=== PATIENT | female | born 1950 | race Caucasian/White ===

== ENCOUNTER 2023-03-08 10:30 | Outpatient (OUT) | payer MEDICARE, OTHER, SELFPAY ==
--- NOTE | 2023-03-08 10:57 | XR_ITS ---
The [address] [address] Patient Name: FAHEEM MUÑOZ MRN: [id number] date: 1950 Sex: F Assigned Patient Location: [facility] Current Patient Location: [facility] Accession/Order Number: [id number] Exam Date: 03/08/2023 10:45 Report Date: 03/08/2023 13:13 At the request of: JESSICA MONGE Procedure: XR hip RT 2V w/ pelvis Exam: Radiographs: XR hip RT 2V w/ pelvis, XR lumbar spine 6V w bending Reason for exam: Right Hip Pain M25.551 Comparison: Plain films dated 05/03/2022 XR/XR hip RT 2V w/ pelvis IMPRESSION: For numbering purposes there are 5 lumbar type vertebral bodies with partial lumbarization of the S1 vertebral body. No radiographically evident lumbar spine fractures. 3-4 mm anterior motion of L3 on L4. Flexion/extension views. 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 Grade 1 anterolisthesis of L4 on L5 without instability on flexion/extension views. Lumbar spine degenerative changes with mild L4-5 disc space narrowing. Remainder of the lumbar spine radiographs is unremarkable. Mild right hip degenerative change. Pubic symphysis degenerative change. Right hip is otherwise unremarkable. Electronically authenticated by: FEDE GAMA Date: 03/08/2023 13:13
--- NOTE | 2023-03-08 10:57 | XR_ITS ---
The [address] [address] Patient Name: FAHEEM MUÑOZ MRN: [id number] date: 1950 Sex: F Assigned Patient Location: [facility] Current Patient Location: [facility] Accession/Order Number: [id number] Exam Date: 03/08/2023 10:45 Report Date: 03/08/2023 13:13 At the request of: JESSICA MONGE Procedure: XR lumbar spine 6V w bending Exam: Radiographs: XR hip RT 2V w/ pelvis, XR lumbar spine 6V w bending Reason for exam: Right Hip Pain M25.551 Comparison: Plain films dated 05/03/2022 XR/XR lumbar spine 6V w bending IMPRESSION: For numbering purposes there are 5 lumbar type vertebral bodies with partial lumbarization of the S1 vertebral body. No radiographically evident lumbar spine fractures. 3-4 mm anterior motion of L3 on L4. Flexion/extension views. 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 Grade 1 anterolisthesis of L4 on L5 without instability on flexion/extension views. Lumbar spine degenerative changes with mild L4-5 disc space narrowing. Remainder of the lumbar spine radiographs is unremarkable. Mild right hip degenerative change. Pubic symphysis degenerative change. Right hip is otherwise unremarkable. Electronically authenticated by: FEDE GAMA Date: 03/08/2023 13:13
== END 2023-03-08 10:31 | disposition home or self-care (01) ==
LOC: RAD 10:34
PROVIDERS: PCP Internal Medicine; Visit Provider Internal Medicine
DX: S39.012A Strain of muscle, fascia and tendon of lower back, initial encounter (principal); M25.551 Pain in right hip
CPT/HCPCS: 72114; 73502

== ENCOUNTER 2023-05-17 07:25 | Outpatient (RCR) | payer MEDICARE, OTHER, SELFPAY ==
[2023-05-17 11:35] VITALS: BP 141/80; PULSE 65; RESP 18; TEMP 36.8; O2SAT 98
[2023-05-17 11:52] LABS: Anion Gap 10.7; BUN Creatinine Ratio 27.6; Carbon Dioxide 32.6 mmol/L (21.0-32.0); Chloride 106 mmol/L (98-107); Estimated GFR (African America >60 (>=60); Estimated GFR (Non-African Ame >60 (>=60); Glucose 100 mg/dL (74-106); Potassium 3.3 mmol/L (3.5-5.1); Sodium 146 mmol/L (136-145)
[2023-05-17 11:57] VITALS: BMI 35.9
[2023-05-17] MEDS: ZOLEDRONIC ACID/MANNITOL-WATER 5 MG/100 ML BOTTLE 400 MG IV (12:03)
--- NOTE | 2023-05-17 12:08 | PC.NURSE ---
Patient is here for [facility], she had her bloodwork completed this morning. Education was provided she is tolerating infusion well.
== END 2023-05-20 12:00 | disposition home or self-care (01) ==
LOC: LAB 07:25
PROVIDERS: PCP Internal Medicine; Visit Provider Internal Medicine
DX: M81.0 Age-related osteoporosis without current pathological fracture (principal)
CPT/HCPCS: 36415; 80048; 82306; 96365; J3489

== ENCOUNTER 2023-06-12 21:47 | Outpatient (REF) | payer MEDICARE, OTHER, SELFPAY ==
--- OUTSIDE RECORDS SUMMARY | 2023-06-12 21:51 | XMS_ITS | CCD ---
Author Name Unknown Address [address] [place] [address] Organization [facility] [place] Care Team Providers Care Splicer Apprentice Name Role Phone PHYSICIAN, DEFAULT Unavailable Unavailable PHYSICIAN, DEFAULT Unavailable Unavailable PHYSICIAN, DEFAULT Unavailable Unavailable PHYSICIAN, DEFAULT Unavailable Unavailable HARJIT OLIVIA Attending Unavailable DOMINIC, MCKINLEY Dos Santos Primary Care Unavailable MCKINLEY ALFARO Primary Care Unavailable Arabella Arechiga Unavailable DOMINIC, DR LOPEZ Primary Care Unavailable BALL, DR LOPEZ Admitting Unavailable BALL, DR LOPEZ Attending Unavailable BALL, DR LOPEZ Consulting Unavailable NAQVI, NICANOR Consulting Unavailable BALL, DR LOPEZ Primary Care Unavailable ALEX ., DR SHARPE Admitting Unavailable ALEX ., DR SHARPE Attending Unavailable ALEX ., DR SHARPE Consulting Unavailable BALL, DR LOPEZ Primary Care Unavailable BALL, DR LOPEZ Admitting Unavailable BALL, DR LOPEZ Attending Unavailable BALL, DR LOPEZ Consulting Unavailable ALEX ., DR SHARPE Consulting Unavailable ZIEBER, DR DENNY Vasquez Consulting Unavailable BALL, DR LOPEZ Primary Care Unavailable REQUEST, DR JOHNSON LISTED Admitting Unavaila ble BALL, DR LOPEZ Consulting Unavailable REQUEST, DR JOHNSON LISTED Attending Unavaila ble REQUEST, NONE LISTED Consulting Unavaila ble BALL, DR LOPEZ Admitting Unavailable BALL, DR LOPEZ Attending Unavailable BALL, DR LOPEZ Consulting Unavailable BALL, DR LOPEZ Primary Care Unavailable ZIEBER, DR DENNY Vasquez Consulting Unavailable BALL, DR LOPEZ Admitting Unavailable BALL, DR LOPEZ Attending Unavailable BALL, DR LOPEZ Consulting Unavailable BALL, DR LOPEZ Primary Care Unavailable Mckinley Alfaro Unavailable DO Arnoldo Nixon Primary Care Provider [phone] MD Niurka Oliveira Attending Provider Arnoldo Nixon Primary Care Unavailable Niurka Oliveira Attending UnavailNiurka Nichols Admitting Unavailwilmer e Keara Bullard Unavailable Mckinley Alfaro Unavailable Dinary, Dr. Lopes Attending Unavailable Dinary, Dr. Lopes Referring Unavailable Dominic, Dr. Mckinley Nair Primary Care Unavai lable Dinary, Dr. Lopes Admitting Unavailable Ball DO, Mckinley Nair Primary Care Provider U filippoailYSABEL Hough Attending Unavailable APLING, JOHN Mina Referring Unavailable TATTERSALL, RACHELLE Attending Unavailable APLING, JOHN B Referring Unavailable TATTERSALL, RACHELLE Attending Unavailable APLING, JOHN B Referring Unavailable TATTERSALL, RACHELLE Attending Unavailable APLING, JOHN B Referring Unavailable KELBLEY, IVONNE Attending Unavailable APLING, JOHN B Referring Unavailable KELBLEY, IVONNE Attending Unavailable APLING, JOHN B Referring Unavailable KELBLEY, IVONNE Attending Unavailable APLING, JOHN B Referring Unavailable KELBLEY, IVONNE Attending Unavailable APLING, JOHN B Referring Unavailable ALEXDELL Reinoso Attending Unavailable LYRIC RODRIGUEZ Attending Unavailable APLING, JOHN B Referring Unavailable NIURKA, YSABEL Attending Unavailable APLING, JOHN B Referring Unavailable NIURKA, YSABEL Attending Unavailable APLING, JOHN B Referring Unavailable SHERRIE, JIL Nagy Attending Unavailable APLING, JOHN B Referring Unavailable KELBLEY, IVONNE Attending Unavailable APLING, JOHN B Referring Unavailable APLING, JOHN B Attending Unavailable KELBLEY, IVONNE Attending Unavailable APLING, JOHN B Referring Unavailable KELBLEY, IVONNE Attending Unavailable APLING, JOHN B Referring Unavailable BLACKSAL HAN Attending Unavailable APLING, JOHN B Referring Unavailable SHERRIE, JIL Nagy Attending Unavailable TATTERSALL, RACHELLE Attending Unavailable APLING, JOHN B Referring Unavailable Allergies Allergy Classification Reported Allergen(s) Allergy Type Date of Onset Reaction(s) Facility (6 sources) Penicillin G Drug Allergy anaphylaxis [facility] Other (1 source) Penicillin Drug Allergy 01-23-20 15 [facility] Repository (2 sources) Adhesive Tape; Translations: [adhesive tape] Propensity to adverse reactions 02-24-20 17 Redness of Skin [facility] (3 sources) Penicillins; Translations: [Penicillins] Allergy to substance 02-24-20 17 Swelling of Lip/Tongue/Thr oat [facility] (5 sources) Adhesive Tape Drug allergy 04-19-20 16 Unknown [facility] Other (5 sources) Nitrofurantoin Drug Allergy Comment:Macrob id [facility] Other (5 sources) Sulfamethoxazole / Trimethoprim Drug Allergy Unknown [facility] Other (5 sources) tiZANidine Comfort Pac *MUSCULOSKELETAL THERAPY AG Propensity to adverse reactions Comment:Could not sleep/rest. [facility] Other (5 sources) Substance with penicillin structure and antibacterial mechanism of action (substance) Drug allergy 04-19-20 16 Unknown [facility] Other Medications Current Medications Medication Drug Class(es) Dates Sig (Normalized) Sig (Original) acetaminophen 325 mg / HYDROcodone bitartrate 5 mg oral tablet (8 sources) Opioid Agonist Start: 05-03-2023 take 1 tablet by mouth once at bedtime as needed HYDROcodone-Aceta minophen 5-325 MG 1 tablet as needed Orally q HS for 30 days Apr, Active Start: 01-04-2023 take 1 tablet by romulo th every six hours as needed for pain HYDROcodone-Acetaminophen 5-325 MG 1 tab let as needed Orally every 6 hrs as needed for pain for 7 days Feb, Active atenolol 100 mg oral tablet (20 sources) beta-Adrenergic Natacha Start: 04-08-2018 take 100 mg by mouth once daily Atenolol Active 100 MG PO Daily April 08, 2018 1:00am Start: 02-23-2017 End: 04-08-2018 take 100 mg by mouth once daily Atenolol Discontinued 100 MG PO Daily February 23, 2017 12:00am April 08, 2018 8:29am take 1 tablet by romulo th every twenty-four hours Atenolol 50 MG 1 tablet Orally Once a day Not-Taking/PRN biotin 1 mg oral tablet (6 sources) Start: 04-08-2018 take 1 mg by mouth once daily Biotin Active 1 MG PO Daily April 08, 2018 1:00am Start: 02-23-2017 End: 08-24-2017 take 3 tablets by mouth once daily Biotin Discontinued 3 TAB PO Daily February 23, 2017 12:00am August 24, 2017 7:39am take 1 tablet by romulo th every twenty-four hours Biotin Maximum Strength 44672 MCG 1 tablet Orally Once a day PRN Active take 1 tablet by romulo th every twenty-four hours Biotin Maximum Strength 65622 MCG 1 tablet Orally Once a day PRN Active Biotin Maximum Strength 54449 MCG (7 sources) take 1 tablet by romulo th once daily as needed Biotin Maximum Strength 49408 MCG 1 tablet Orally Once a day PRN Active take 1 tablet by mouth once gayla y Biotin Maximum Strength 62883 MCG 1 tablet Orally Once a day Active Calcium (1 source) Phosphate Binder, Calcium Start: 09-28-2022 take 500 mg by mouth once daily Calcium Active 500 MG PO Daily September 28, 2022 12:00am calcium carbonate 750 mg chewable tablet (2 sources) Start: 09-28-2022 take 1 tablet by mouth twice daily Calcium Carbonate (Tums) 300 mg (750 mg) Tablet,Chewable Active 300 MG PO Twice daily September 28, 2022 12:00am Start: 08-24-2017 End: 10-21-2018 Calcium Carbonate (Calcium 5 00) 500 mg calcium (1,250 mg) Tablet Discontinued 1000 MG PO Daily August 24, 2017 12:00am October 21, 2018 8:46am cholecalciferol 0.025 mg oral tablet (1 source) Vitamin D Start: 09-28-2022 take 1 tablet by mouth once daily Cholecalciferol (Vitamin D3) (Vitamin D3) 25 mcg (1,000 unit) Tablet Active 25 MCG PO Daily September 28, 2022 12:00am dimenhyDRINATE 50 mg oral tablet (7 sources) take 1 tablet by mouth every six hours Dramamine 50 MG 1 tablet as needed Orally every 6 hrs Active hydroCHLOROthiazide 25 mg oral tablet (3 sources) Thiazide Diuretic Start: 09-28-2022 take 25 mg by mouth once daily Hydrochlorothiazide Active 25 MG PO Daily September 28, 2022 12:00am inulin 2000 mg chewable tablet (1 source) Start: 09-28-2022 take 1 tablet by mouth once daily Inulin (Fiber Gummies) 2 gram Tablet,Chewable Active 1 GM PO Daily September 28, 2022 12:00am meloxicam 15 mg oral tablet (9 sources) Nonsteroidal Anti-inflammator y Drug Start: 02-23-2017 take 15 mg by mouth once daily Meloxicam Active 15 MG PO Daily February 23, 2017 12:00am omeprazole 20 mg delayed release oral capsule (13 sources) Proton Pump Inhibitor Start: 08-24-2017 End: 04-08-2018 take 20 mg by mouth once daily Omeprazole Active 20 MG PO Daily April 08, 2018 1:00am Omeprazole 40 MG TAKE 1 CAPSULE BY MOUTH 30 MINUTES BEFORE MORNING MEAL EVERY DAY FOR 30 DAYS Orally Once a day for 90 days Active potassium chloride 10 meq extended release oral capsule (1 source) Start: 05-17-2023 take 1 capsule by mouth every twenty-four hours Potassium Chloride ER 10 MEQ 1 capsule with food Orally Once a day for 30 days Apr, Active traMADol hydrochloride 50 mg oral tablet (6 sources) Opioid Agonist Start: 10-03-2022 take 1 tablet by mouth every twenty-four hours traMADol HCl 50 MG 1 tablet as needed Orally Once a day for 30 days September, Active Start: 09-28-2022 take 50 mg by mouth once daily Tramadol Active 50 MG PO Daily September 28, 2022 12:00am Start: 07-04-2022 take 1 tablet by romulo th every twenty-four hours traMADol HCl 50 MG 1 tablet as needed Orally Once a day for 30 days Jun, Active triamcinolone acetonide 0.005 mg/mg topical ointment (10 sources) Corticosteroid Start: 03-08-2023 Triamcinolone Acetonide 0.5 % 1 application Externally Twice a day for 30 days Feb, Active Start: 11-01-2022 Kenalog-40 Oct, 40 mg 100 ml zoledronic acid 0.05 mg/ml injection (2 sources) Bisphosphonate Start: 05-03-2023 Reclast 5 MG/1 00ML as directed Intravenous Apr, Active Completed/Discontinued Medications Medication Drug Class(es) Dates Sig (Normalized) Sig (Original) aspirin 81 mg delayed release oral tablet (1 source) Platelet Aggregation Inhibitor, Nonsteroidal Anti-inflammatory Drug Start: 04-02-2018 End: 09-28-2022 take 1 tablet by mouth once daily Aspirin (Aspir-81) 81 mg Tablet,Delayed Release (Dr/Ec) Discontinued 81 MG PO Daily April 02, 2018 1:00am September 28, 2022 7:46am Calcium Carb-Magnesium Ox,Carb (Eliud-Mag) 200 mg calcium- 100 mg Tablet,Chewable (1 source) Start: 02-23-2017 End: 08-24-2017 take 1 tablet by mouth once daily Calcium Carb-Magnesium Ox,Carb (Eliud-Mag) 200 mg calcium- 100 mg Tablet,Chewable Discontinued 1 TAB PO Daily February 23, 2017 12:00am August 24, 2017 7:39am hydroCHLOROthiazide 12.5 mg / olmesartan medoxomil 20 mg oral tablet (1 source) Thiazide Diuretic, Angiotensin 2 Receptor Natacha Start: 04-02-2018 End: 10-21-2018 take 1 tablet by mouth once daily Olmesartan-Hydroc hlorothiazide (Benicar Hct) 20-12.5 mg Tablet Discontinued 1 TAB PO Daily April 02, 2018 1:00am October 21, 2018 8:47am hydroCHLOROthiazide 12.5 mg / valsartan 80 mg oral tablet (2 sources) Thiazide Diuretic, Angiotensin 2 Receptor Natacha Start: 08-24-2017 End: 04-02-2018 take 1 tablet by mouth once daily Valsartan-Hydroch lorothiazide Discontinued 1 TAB PO Daily August 24, 2017 12:00am April 02, 2018 10:59am Start: 02-23-2017 End: 04-20-2017 take 1 tablet by mouth once daily Valsartan-Hydrochlorothiazide Discontinu ed 1 TAB PO Daily February 23, 2017 12:00am April 20, 2017 9:52am hydrocortisone 10 mg/ml / neomycin 3.5 mg/ml / polymyxin b 36876 unt/ml otic solution (11 sources) Aminoglycoside Antibacterial, Polymyxin-class Antibacterial, Corticosteroid Start: 03-09-2022 Xmnezgvt-Bnjeyxcjl-AH 3.5-93665-0 4 drops into affected ear Otic Three times a day for 7 day(s) Feb, Not-Taking/PRN Magnesium (1 source) Start: 04-08-2018 End: 10-21-2018 take 250 mg by mouth once daily Magnesium Discontinued 250 MG PO Daily April 08, 2018 1:00am October 21, 2018 8:46am Meclizine (11 sources) Antiemetic Meclizine HCl IL N Not-Taking/PRN Meclizine HCl IL N Not-Taking Meclizine HCl IL N Active methylPREDNISolone 4 mg oral tablet (18 sources) Corticosteroid Start: 03-09-2022 methylPREDNISolone 4 MG as directed Orally daily for 6 days Oct, Not-Taking/PRN Multivitamin With Minerals (Hair,Skin And Nails) Tablet (1 source) Start: 08-24-2017 End: 10-21-2018 take 1 tablet by mouth once daily Multivitamin With Minerals (Hair,Skin And Nails) Tablet Discontinued 1 TAB PO Daily August 24, 2017 12:00am October 21, 2018 8:46am [place] 8-Rus-Nvi-Fish Oil (Fish Oil) 1,000 mg (120 mg-180 mg) Capsule (1 source) Start: 02-23-2017 End: 08-24-2017 take 1 capsule by mouth once daily [place] 6-Suq-Bbk-Fish Oil (Fish Oil) 1,000 mg (120 mg-180 mg) Capsule Discontinued 1 CAP PO Daily February 23, 2017 12:00am August 24, 2017 7:39am [place] Red (1 source) Start: 04-02-2018 End: 09-28-2022 take 1 tablet by mouth once daily [place] Red Discontinued 1 TAB PO Daily April 02, 2018 1:00am September 28, 2022 7:45am paxlovid (300/100) 20 x 150 mg & 10 x 100mg tablet therapy pack (2 sources) Start: 09-06-2022 take 3 tablets by mouth every twelve hours Paxlovid (300/100) 20 x 150 MG & 10 x 100MG 3 tablets Orally Twice a day for 5 day(s) Aug, Not-Taking/PRN {20 (nirmatrelvir 150 MG Oral Tablet) / 10 (ritonavir 100 MG Oral Tablet) } Pack [Paxlovid 5-Day] (5 sources) Start: 09-06-2022 take 3 tablets by mouth every twelve hours Paxlovid (300/100) 20 x 150 MG & 10 x 100MG 3 tablets Orally Twice a day for 5 day(s) Aug, Not-Taking Problems Active Problems Problem Classification Problem Date Documented Da te Episodic/Chronic Abdominal hernia (4 sources) Hiatal hernia; Translations: [Diaphragmatic hernia without obstruction or gangrene] Episodic Complications of surgical procedures or medical care (1 source) Non-healing surgical wound; Translations: [Other complications of procedures, not elsewhere classified, initial encounter] 08-24-2017 Episodic Esophageal disorders (20 sources) Gastroesophageal reflux disease; Translations: [Gastro-esophageal reflux disease without esophagitis] Chronic Essential hypertension (16 sources) Essential hypertension; Translations: [Essential (primary) hypertension] Onset: 2 Chronic Gastritis and duodenitis (11 sources) Atrophic gastritis; Translations: [Unspecified chronic gastritis without bleeding] Chronic Immunizations and screening for infectious disease (1 source) Encounter for screening for human papillomavirus (HPV); Translations: [ENC SCREENING HUMAN PAPILLOMAVIRUS] Onset: 3 Episodic Neoplasms of unspecified nature or uncertain behavior (1 source) Submucosal tumor of duodenum; Translations: [Neoplasm of unspecified nature of digestive system] Episodic Nutritional deficiencies (1 source) Vitamin D deficiency; Translations: [Vitamin D deficiency, unspecified] Chronic Osteoarthritis (11 sources) Osteoarthritis of joint of right shoulder region; Translations: [Primary osteoarthritis, right shoulder] Chronic Osteoporosis (13 sources) Senile osteoporosis; Translations: [Age-related osteoporosis without current pathological fracture] Onset: 3 Chronic Other and unspecified benign neoplasm (7 sources) Benign neoplasm of stomach; Translations: [Polyp of stomach and duodenum] Episodic Other and unspecified benign neoplasm (2 sources) Polyp of stomach and duodenum; Translations: [Polyp of stomach and duodenum] Onset: 3 Episodic Other and unspecified benign neoplasm (1 source) Mass of digestive structure; Translations: [Polyp of stomach and duodenum] 12-21-2022 Episodic Other connective tissue disease (5 sources) Fibromyalgia; Translations: [Fibromyalgia] Episodic Other ear and sense organ disorders (1 source) Impacted cerumen, right ear Episodic Other gastrointestinal disorders (10 sources) Irritable bowel syndrome characterized by constipation; Translations: [Irritable bowel syndrome with constipation] Chronic Other gastrointestinal disorders (1 source) Irritable bowel syndrome with constipation Chronic Other gastrointestinal disorders (5 sources) Dysphagia; Translations: [Dysphagia, unspecified] 09-28-2022 Episodic Other gastrointestinal disorders (4 sources) Heartburn; Translations: [Heartburn] Episodic Other gastrointestinal disorders (7 sources) Constipation; Translations: [Constipation, unspecified] Episodic Other gastrointestinal disorders (2 sources) Dysphagia, unspecified; Translations: [Dysphagia, unspecified] Onset: 3 09-28-2022 Episodic Other inflammatory condition of skin (1 source) Seborrheic dermatitis, unspecified Episodic Other nervous system disorders (7 sources) Chronic pain; Translations: [Other chronic pain] Chronic Other nervous system disorders (1 source) Other chronic pain Chronic Other non-traumatic joint disorders (1 source) Pain in right shoulder Episodic Other non-traumatic joint disorders (2 sources) Pain in right hip Episodic Other nutritional; endocrine; and metabolic disorders (11 sources) Obese class I; Translations: [Body mass index (BMI) 34.0-34.9, adult] Chronic Other nutritional; endocrine; and metabolic disorders (17 sources) Body mass index 30+ - obesity; Translations: [Obesity, unspecified] Chronic Other nutritional; endocrine; and metabolic disorders (1 source) Obesity, unspecified Chronic Other nutritional; endocrine; and metabolic disorders (7 sources) Severe obesity; Translations: [Morbid (severe) obesity due to excess calories] Chronic Other nutritional; endocrine; and metabolic disorders (2 sources) Morbid (severe) obesity due to excess calories Chronic Other nutritional; endocrine; and metabolic disorders (2 sources) Body mass index (BMI) 35.0-35.9, adult Chronic Other screening for suspected conditions (not mental disorders or infectious disease) (8 sources) Encounter for screening mammogram for malignant neoplasm of breast; Translations: [Encounter for screening for malignant neoplasm of cervix] Onset: 3 Episodic Other upper respiratory disease (4 sources) Sinusitis; Translations: [Allergic rhinitis, unspecified] Chronic Other upper respiratory disease (1 source) Allergic rhinitis, unspecified Chronic Residual codes; unclassified (11 sources) Family history of cancer of colon; Translations: [Family history of malignant neoplasm of digestive organs] Episodic Residual codes; unclassified (1 source) Asymptomatic menopausal state; Translations: [ASYMPTOMATIC MENOPAUSAL STATE] Onset: 3 Episodic Residual codes; unclassified (1 source) Edema of left lower limb; Translations: [Localized edema] 08-24-2017 Episodic Spondylosis; intervertebral disc disorders; other back problems (13 sources) Lumbar spondylosis; Translations: [Spondylosis without myelopathy or radiculopathy, lumbar region] Chronic Sprains and strains (2 sources) Strain of muscle(s) and tendon(s) of the rotator cuff of right shoulder, subsequent encounter; Translations: [Strain of muscle, fascia and tendon of lower back, initial encounter] Episodic Superficial injury; contusion (5 sources) Contusion of right shoulder, initial encounter; Translations: [Contusion of left hip, initial encounter] Onset: 2 Episodic Past or Other Problems Problem Classification Problem Date Documented Da te Episodic/Chronic Anal and rectal conditions (1 source) Disease of anus and rectum, unspecified; Translations: [DISEASE ANUS AND RECTUM UNSPECIFIED] Onset: 04-04-2022 Episodic Esophageal disorders (2 sources) Esophageal disorders Malaise and fatigue (1 source) Other fatigue; Translations: [OTHER FATIGUE] Onset: 04-04-2022 Episodic Other skin disorders (4 sources) Localized swelling, mass and lump, trunk; Translations: [LOCALIZD SWELLING MASS AND LUMP TRUNK] Onset: 09-29-2021 Episodic Results Test Name Value Interpretation Reference Range Facility SURGICAL PATHOLOGY RESULTSon 12-20-2022 Pathology Report Name LIZZY WELSH Pathologist: ANNY CHU MD Date of Procedure: 12/12/2022 Date Received: 12/12/2022 Date Reported 12/20/2022 Submitting Physician: MARIANNE LI MD Location: OR Other External # FINAL DIAGNOSIS A. DUODENAL POLYP, BIOPSY: -- SMALL INTESTINAL MUCOSA DEMONSTRATING DILATED LYMPHATIC VESSELS, NO DYSPLASIA IDENTIFIED. Note: Multiple deeper levels were examined. Electronically Signed Out By ANNY CHU MD/[facility] [place] By the signature on this report, the individual or group listed as making the Final Interpretation/Diagnosi s certifies that they have reviewed this case. Diagnostic interpretation performed at [address] [place] [address] Clinical History: Physician Contact Number: [phone] Ischemic Time (A): 09:35 Fixative (A): Formalin Fixative Time (A): 09:35 Clinical Diagnosis History DUODENAL POLYP Specimens Submitted As: A: DUODENAL POLYP BIOPSY Gross Description: Received in formalin, labeled with the patient's name and hospital number and A, Duodenal polyp biopsy , are two fragments of messer, soft tissue aggregating to 0.9 x 0.2 x 0.2 cm. The specimen is submitted in toto in one cassette. M[facility] valladares/12/13/2022 [facility] Department of Pathology [id number] Endoscopic Ultrasound (Upper )on 12-12-2022 Marianne Li MD - 02/01/2023 Patient Name: Lizzy Welsh Procedure Date: 12/12/2022 9:15 AM Date of : 1950 Admit Type: Outpatient Site: [facility] 1 Ethnicity: Not or Race: White Attending MD: Marianne Li MD, [id number] Procedure: Upper EUS Indications: Duodenal mucosal mass/polyp found on endoscopy, 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 extrinsic compression Patient Profile: This is a 72 year old female. Refer to note in patient chart for documentation of history and physical. Providers: Marianen Li MD (Doctor), Sara Castillo RN (Nurse), Maciel Ferrer, Suppression Crew Leader Referring: Marianne Li MD Medicines: See the Anesthesia note for documentation of the administered medications Complications: No immediate complications. Procedure: Pre-Anesthesia Assessment: - Prior to the procedure, a History and Physical was performed, and patient medications and allergies were reviewed. The patient's tolerance of previous anesthesia was also reviewed. The risks and benefits of the procedure and the sedation options and risks were discussed with the patient. All questions were answered, and informed consent was obtained. Prior Anticoagulants: The patient has taken no anticoagulant or antiplatelet agents. ASA Grade Assessment: III - A patient with severe systemic disease. After reviewing the risks and benefits, the patient was deemed in satisfactory condition to undergo the procedure. After obtaining informed consent, the endoscope was passed under direct vision. Throughout the procedure, the patient's blood pressure, pulse, and oxygen saturations were monitored continuously. The ultrasound scope was introduced through the mouth, and advanced to the second part of duodenum. The Gastroscope was introduced through the mouth, and advanced to the second part of duodenum. The upper EUS was accomplished without difficulty. The patient tolerated the procedure well. Findings: ENDOSCOPIC FINDING: : The examined esophagus was normal. The entire examined stomach was normal. A single 8 mm submucosal nodule with a localized distribution was found in the second portion of the duodenum. This was biopsied with a cold forceps for histology. The exam of the duodenum was otherwise normal. ENDOSONOGRAPHIC FINDING: : An oval intramural (subepithelial) lesion was found in the second portion of the duodenum. The lesion was hypoechoic with ductal structure. Endosonographically, the lesion appeared to originate from within the submucosa (Layer 3). The lesion measured 7 mm (in maximum thickness). The lesion also measured 8 mm in diameter. The outer margins were well defined. Estimated Blood Loss: Estimated blood loss: none. Impression: EGD: - Normal esophagus. - Normal stomach. - Submucosal nodule found in the duodenum. Biopsied. EUS: - An intramural (subepithelial) lesion was found in the second portion of the duodenum. The lesion appeared to originate from within the submucosa (Layer 3). 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 Recommendation: - Await path results. - Advance diet as tolerated. - Return to endoscopist in 3 months depends of biopsy result. 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 All rights reserved. The codes documented in this report are preliminary and upon invoice coder review may be revised to meet current compliance requirements. Attending Participation: I personally performed the entire procedure. MD Marianne Enamorado MD 12/12/2022 9:49:01 AM This report has been signed electronically. Number of Addenda: 0 Note Initiated On: 12/12/2022 9:15 AM Total Procedure Duration Time 0 hours 21 minutes 39 seconds [facility] Work Phone: Radiology Study observation (narrative) [facility] Work Phone: Endoscopic Ultrasound (Upper )Ordered By: Marianne Li on 12-12-2022 [facility] Work Phone: No Panel Informationon 12-12 [facility] DO Work Phone: [phone] [email or web address] [facility] DO Work Phone: [facility] DO Work Phone: Order Reconciliationon 12-12 Order Reconciliation Page 1 Discharge Reconciliation Document Reconciliation Type: Discharge requested on behalf of Marianne Li (Physician) done by Marianne Li) Discharge - Reconciliation: 12-Dec-2022 09:10 by: Marianne Li) Home Medications EnteredHOME MEDICATIONS AT DISCHARGE DateReconciliation Comment/ Additional Information atenolol 100 mg oral tablet 1 tab(s) orally once a day 12-Dec-2022 07:53 atenolol 100 mg oral tablet 1 tab(s) orally once a day 12-Dec-2022 07:53 atenolol 100 mg oral tablet is continued as atenolol 100 mg oral tablet Biotin 5000 mcg oral capsule 12-Dec-2022 07:54 Biotin 5000 mcg oral capsule 12-Dec-2022 07:54 Biotin 5000 mcg oral capsule is continued as Biotin 5000 mcg oral capsule Calcium 600+D oral tablet 1 tab(s) orally 2 times a day 12-Dec-2022 07:54 Calcium 600+D oral tablet 1 tab(s) orally 2 times a day 12-Dec-2022 07:54 Calcium 600+D oral tablet is continued as Calcium 600+D oral tablet hydroCHLOROthiazide 25 mg oral tablet 1 tab(s) orally once a day 12-Dec-2022 07:53 hydroCHLOROthiazide 25 mg oral tablet 1 tab(s) orally once a day 12-Dec-2022 07:53 hydroCHLOROthiazide 25 mg oral tablet is continued as hydroCHLOROthiazide 25 mg oral tablet meloxicam 15 mg oral tablet 1 tab(s) orally once a day 12-Dec-2022 07:53 meloxicam 15 mg oral tablet 1 tab(s) orally once a day 12-Dec-2022 07:53 meloxicam 15 mg oral tablet is continued as meloxicam 15 mg oral tablet Metamucil [facility] Fiber orally once a day gummy 12-Dec-2022 07:55 Metamucil [facility] Fiber orally once a day gummy 12-Dec-2022 07:55 Metamucil [facility] Fiber is continued as Metamucil [facility] Fiber Tums 750 mg daily 12-Dec-2022 07:55 Tums 750 mg daily 12-Dec-2022 07:55 Tums is continued as Tums All Active Home Medications at time of Discharge Reconciliation: 12-Dec-2022 09:10 atenolol 100 mg oral tablet 1 tab(s) orally once a day Biotin 5000 mcg oral capsule Calcium 600+D oral tablet 1 tab(s) orally 2 times a day hydroCHLOROthiazide 25 mg oral tablet 1 tab(s) orally once a day meloxicam 15 mg oral tablet 1 tab(s) orally once a day Metamucil [facility] Fiber orally once a day gummy Tums 750 mg daily Normal [facility] Surgical Pathology Depar tmenton 12-12-2022 [facility] Surgical Pathology Department Name LIZZY WELSH Pathologist: ANNY CHU MD Date of Procedure: 12/12/2022 Date Received: 12/12/2022 Date Reported 12/20/2022 Submitting Physician: MARIANNE LI MD Location: [facility] Other External # FINAL DIAGNOSIS A. DUODENAL POLYP, BIOPSY: -- SMALL INTESTINAL MUCOSA DEMONSTRATING DILATED LYMPHATIC VESSELS, NO DYSPLASIA IDENTIFIED. Note: Multiple deeper levels were examined. Electronically Signed Out By ANNY CHU MD/[facility] [place] By the signature on this report, the individual or group listed as making the Final Interpretation/Diagnosi s certifies that they have reviewed this case. Diagnostic interpretation performed at [facility], [place], operated by [facility] [address] [facility] [address] Clinical History: Physician Contact Number: [phone] Ischemic Time (A): 09:35 Fixative (A): Formalin Fixative Time (A): 09:35 Clinical Diagnosis History DUODENAL POLYP Specimens Submitted As: A: DUODENAL POLYP BIOPSY Gross Description: Received in formalin, labeled with the patient's name and hospital number and A, Duodenal polyp biopsy , are two fragments of messer, soft tissue aggregating to 0.9 x 0.2 x 0.2 cm. The specimen is submitted in toto in one cassette. MRS valladares/12/13/2022 [facility] Department of Pathology [address] [place] [address] [facility] Comment on above: Performed By: #### [facility] #### [facility] Surgical Pathology Department [address] [place] [id number] Upper EUSon 12-12-2022 Upper EUS PATIENTNAME Patient Name: Lizzy Welsh EXAMDATE Procedure Date: 12/12/2022 9:15 AM PATIENTID PATIENTACCOUNTNUM PATIENTDOB Date of : 1950 ADMITTYPE Admit Type: Outpatient PATIENTROOM Site: [facility] 1 ETHNICITY Ethnicity: Not or RACE Race: White PROVDR Attending MD: Marianne Li MD, [id number] ENDOPROCEDURENAME Procedure: Upper EUS INDICATION Indications: Duodenal mucosal mass/polyp found on endoscopy, 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 Refer to note in patient chart for documentation of history and physical. PRIMARYPROVIDER Providers: Marianne Li MD (Doctor), Sara Castillo RN (Nurse), Maciel Ferrer, Suppression Crew Leader EDREFPROVIDER Referring: Marianne Li MD CURRENT_MEDS Medicines: See the Anesthesia note for documentation of the administered medications COMPLIC Complications: No immediate complications. ENDOPROCEDURETEXT Procedure: Pre-Anesthesia Assessment: - Prior to the procedure, a History and Physical was performed, and patient medications and allergies were reviewed. The patient's tolerance of previous anesthesia was also reviewed. The risks and benefits of the procedure and the sedation options and risks were discussed with the patient. All questions were answered, and informed consent was obtained. Prior Anticoagulants: The patient has taken no anticoagulant or antiplatelet agents. ASA Grade Assessment: III - A patient with severe systemic disease. After reviewing the risks and benefits, the patient was deemed in satisfactory condition to undergo the procedure. After obtaining informed consent, the endoscope was passed under direct vision. Throughout the procedure, the patient's blood pressure, pulse, and oxygen saturations were monitored continuously. The ultrasound scope was introduced through the mouth, and advanced to the second part of duodenum. The Gastroscope was introduced through the mouth, and advanced to the second part of duodenum. The upper EUS was accomplished without difficulty. The patient tolerated the procedure well. FINDING Findings: ENDOSCOPIC FINDING: : The examined esophagus was normal. The entire examined stomach was normal. A single 8 mm submucosal nodule with a localized distribution was found in the second portion of the duodenum. This was biopsied with a cold forceps for histology. The exam of the duodenum was otherwise normal. ENDOSONOGRAPHIC FINDING: : An oval intramural (subepithelial) lesion was found in the second portion of the duodenum. The lesion was hypoechoic with ductal structure. Endosonographically, the lesion appeared to originate from within the submucosa (Layer 3). The lesion measured 7 mm (in maximum thickness). The lesion also measured 8 mm in diameter. The outer margins were well defined. EBL Estimated Blood Loss: Estimated blood loss: none. IMPRESS Impression: EGD: - Normal esophagus. - Normal stomach. - Submucosal nodule found in the duodenum. Biopsied. EUS: - An intramural (subepithelial) lesion was found in the second portion of the duodenum. The lesion appeared to originate from within the submucosa (Layer 3). 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 ENDORECOMMENDATION Recommendation: - Await path results. - Advance diet as tolerated. - Return to endoscopist in 3 months depends of biopsy result. 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 All rights reserved. The codes documented in this report are preliminary and upon invoice coder review may be revised to meet current compliance requirements. ATTDRPART Attending Participation: I personally performed the entire procedure. SIGNATURENAME MD Marianne Enamorado MD SIGNATUREDATE 12/12/2022 9:49:01 AM SIGNATUREONFILEIND This report has been signed electronically. NUMADDENDA Number of Addenda: 0 INITIATEDON Note Initiated On: 12/12/2022 9:15 AM TOTPROCTIME Total Procedure Duration Time 0 hours 21 minutes [address] [facility] Mayur 09-28-2022 L --- Specimen: [id number] Received: 09/28/22 Status: SALVADOR Enrique Num: [id number] Spec Type: Surgical Subm Dr: Niurka Oliveira MD Tissues: A Duodenum - Biopsy (DUODENUM BX) B Esophagus Biopsy (ESOPHABEAL BX) Procedures: Roxie AGRCIA/Kashif L4/2 Age/ Patient Sex Location Account Attending Physician Lizzy Welsh 72/F [id number] Niurka Oliveira MD SPEC NUM: [id number] RECD: 09/28/22 STATUS: SALVADOR ENRIQUE NUM: [id number] ELVA: 09/28/22- [facility] DR: Niurka Oliveira MD ENTERED: 09/28/[address]: IDA TYPE: Surgical DEPT: S ORDERED: HE/4, Gross/Micro L4/2 ORDERED: HE/4, Gross/Micro L4/2 Pathological Diagnosis A. Small bowel, duodenal biopsy: - Superficial fragment of small intestinal epithelium with focal gastric metaplasia, consistent with peptic duodenitis. - Negative for celiac disease. B. Esophagus, esophageal biopsy: - Squamous mucosa, negative for significant histopathologic changes. - Negative for West?s esophagus (H E stain). - Negative for dysplasia. - Negative for eosinophilic esophagitis. Clinical Information West's, difficulty in swallowing, GERD Gross Description Received in formalin labeled with the patient's name, number and duodenal biopsy?? is one fragment of soft messer tissue measuring 0.3 x 0.3 x 0.1 cm. Entirely submitted in one cassette labeled A1. Received in formalin labeled with the patient's name, number and esophageal biopsy?? are two fragments of soft messer tissue measuring 0.2 x 0.3 x 0.1 cm and 0.2x 0.3 x 0.1 cm. Entirely submitted in one cassette labeled C1. Specimen: [id number] Received: 09/28/22 Status: SALVADOR Enrique Num: [id number] Spec Type: Surgical Subm Dr: Niurka Oliveira MD Tissues: A Duodenum - Biopsy (DUODENUM BX) B Esophagus Biopsy (ESOPHABEAL BX) Procedures: HE/4, Gross/Micro L4/2 Patient: BlaiseLizzy Yakov [id number] (Continued) Signed (signature on file) Baylee Newton MD 09/29/22 1009 Normal [facility] ZAK - TSHon 07-19-2022 TSH 1.271 uIU/mL Normal 0.358-3.740 [facility] Comment on above: Performed By: #### D ATTSH #### [facility] [address] [place] [address] Dr. Gertrudis Peres TSH RANGE SEE BELOW Normal [facility] Comment on above: Result Comment: <0.3 4 UIU/ml HYPERTHYROID 0.34-5.60 UIU/ml EUTHYROID >5.60 UIU/ml HYPOTHYROID Performed By: #### D ATTSH #### [facility] [address] [place] [address] Dr. Gertrudis Peres ZAK - VITAMIN Don 07-19-2022 VIT D 25-OH 26.5 ng/mL Normal [facility] [place] [facility] Comment on above: Performed By: #### D ATVITD #### [facility] [id number] Gertrudis Peres VIT D RANGES SEE BELOW Normal [facility] Comment on above: Result Comment: <20 ng/mL Vit D deficient 20 - <30 ng/mL Vit D insufficient 30 - 100 ng/mL Vit D sufficient >100 ng/mL Potential Toxicity Performed By: #### D ATVITD #### [facility] [address] [place], [place] [address] Dr. Gertrudis Peres MG MAMM SCREEN 3D MANDY CADon 06-13-2022 MG MAMM SCREEN 3D MANDY CAD Patient: LIZZY WELSH Exam Date: 06/13/2022 : 1950 Gender:F Ordering : DR MCKINLEY ALFARO D.O. Admission #: [id number] Family : Order #: [id number] CLICK HERE TO VIEW EXAM RADIOLOGY REPORT PROCEDURE: MAMMOGRAM SCREENING 3D BILATERAL CAD COMPARISON: MG MAMM SCREEN MANDY W CAD, 07/03/2019. MG MAMM SCREEN MANDY W CAD, 06/11/2018. DIGITIZED_MAMMO, 07/17/2008. MG MAMM SCREEN 3D MANDY CAD, 06/09/2021. INDICATIONS: Screening mammography Calculator Name NCI Breast Cancer Risk Assessment Tool 5 Year Breast Cancer Risk 2.00% Lifetime Breast Cancer Risk 5.90% Personal Breast Cancer No Personal Ovarian Cancer No Treatments None Family Cancers None LOCATION: [facility] [place] [facility] BREAST COMPOSITION: Scattered areas fibroglandular density. FINDINGS: DIAGNOSTIC CATEGORY 2--BENIGN FINDING: RIGHT BREAST: No significant suspicious finding. Biopsy marker clip within posterior upper inner quadrant. No significant change has occurred. LEFT BREAST: No significant suspicious finding. No significant change has occurred. RECOMMENDATIONS: ROUTINE MAMMOGRAM AND CLINICAL EVALUATION IN 12 MONTHS. PLEASE NOTE: A NORMAL MAMMOGRAM DOES NOT EXCLUDE THE POSSIBILITY OF BREAST CANCER. A CLINICALLY SUSPICIOUS PALPABLE LUMP SHOULD BE BIOPSIED. Dictated by: Denny Rose M.D. on 06/14/2022 at 11:16 Approved by: Denny Rose M.D. on 06/14/2022 at 11:22 Normal [facility] XR DEXA BONE DENSITYon 06-13 XR DEXA BONE DENSITY EXAMINATION: XR DEX A BONE DENSITY, 06/13/2022 12:38 PM EST HISTORY: Menopause present COMPARISON: DEXA bone densitometry 04/22/2018 TECHNIQUE: Dual-energy X-ray absorptiometry (DEXA) bone density study performed for the axial skeleton. FINDINGS: FOREARM ANALYSIS: Average bone mineral density is 0.609 g/cm2. T-score (standard deviation relative to young adult mean): -1.5 . +1.1% change since prior study HIP ANALYSIS: Lowest bone mineral density is within the right femoral trochanter, 0.557 g/cm2. T-score (standard deviation relative to young adult mean): -2.6 (femoral neck is -2.2) . -2.3% change since prior study. IMPRESSION: [employer] Organization Classification: Osteoporosis - High Fracture Risk Electronically authenticated by: DENNY ROSE Date: 2022-06-13 14:55 [facility] PAP ACOG PANEL 2: 30 to 65on 06-10-2022 . . Normal [facility] Comment on above: Performed By: #### 4 [id number] #### [facility] [address] [address] [address] Gertrudis Peres Age Gdln ACOG Testing Comment [facility] Comment on above: Result Comment: <21 or >65 or no age provided Performed By: #### 4 [id number] #### [facility] [address] [address] [address] Gertrudis Peres DIAGNOSIS: Comment Normal [facility] Comment on above: Result Comment: NEGA TIVE FOR INTRAEPITHELIAL LESION OR MALIGNANCY. Performed By: #### 4 [id number] #### [facility] [address] [address] [address] Gertrudis Peres Methodology: Comment [facility] Comment on above: Result Comment: This liquid based ThinPrep(R) pap test was screened with the use of an image guided system. Performed By: #### 4 [id number] #### [facility] [address] [address] [address] Gertrudis Peres Note: Comment [facility] Comment on above: Result Comment: The Pap smear is a screening test designed to aid in the detection of premalignant and malignant conditions of the uterine cervix. It is not a diagnostic procedure and should not be used as the sole means of detecting cervical cancer. Both false-positive and false-negative reports do occur. . Performed By: #### 4 [id number] #### [facility] [address] [place], [place] [address] Dr. Gertrudis Peres Performed by: Comment Normal [facility] Comment on above: Result Comment: [employer] [place] (ASCP) Performed By: #### 4 [id number] #### [facility] [address] [address] [address] Gertrudis Peres Specimen adequacy: Comment Normal [facility] Comment on above: Result Comment: Sati sfactory for evaluation. Endocervical and/or squamous metaplastic cells (endocervical component) are present. Performed By: #### 4 [id number] #### [facility] [address] [address] [address] Gertrudis Peres XR HIPS MANDY 5V W PELVISon XR HIPS MANDY 5V W PELVIS EXAM: XR HIPS MANDY 5V W PELVIS, XR SHOULDER RT 2V or > HISTORY: Contusion of left hip region COMPARISON: None. TECHNIQUE: AP view of the pelvis was obtained along with AP and lateral views of the bilateral hips. 3 views of the right shoulder were obtained. FINDINGS: Right shoulder: There is moderate joint space narrowing with marginal spurring at the right acromioclavicular and glenohumeral joints. No evidence of an acute fracture. Pelvis with bilateral hips: There is severe bilateral joint space narrowing with marginal spurring at the hip joints and the sacroiliac joints. Osteitis pubis. There is multifocal enthesopathic changes are seen at the iliac spines and the greater trochanters. Postsurgical changes are seen at the lower lumbar spine. IMPRESSION: Right shoulder: 1. Degenerative changes. 2. No evidence of an acute fracture or subluxation. Pelvis and bilateral hips: 1. 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 2. No evidence of an acute fracture or subluxation. Electronically authenticated by: NICANOR NAQVI Date: 2022-05-03 16:34 Normal [facility] [place] [facility] CBC AUTO DIFFon 03-31-2022 BASO # 0.0 103/ul Normal 0.0-0.1 [facility] [place] [facility] Comment on above: Performed By: #### C BC #### [facility] [address] [address] [address] Gertrudis Peres Basophils/100 WBC (Bld) 0.5 % Normal 0.2-2.0 [facility] [place] [facility] Comment on above: Performed By: #### C BC #### [facility] [address] [address] [address] Gertrudis Peres EO # 0.3 103/ul Normal 0.0-0.7 [facility] Comment on above: Performed By: #### C BC #### [facility] [address] [place] [address] Dr. Gertrudis Peres Eosinophils/100 WBC (Bld) 4.3 % Normal 0.9-7.0 [facility] Comment on above: Performed By: #### C BC #### [facility] [address] [place] [address] Dr. Gertrudis Peres Erythrocyte distribution width (RBC) [Ratio] 13.2 % Normal 11.0-15.0 [facility] Comment on above: Performed By: #### C BC #### [facility] [address] [place] [address] Dr. Gertrudis Peres Hematocrit (Bld) [Volume fraction] 37.9 % Normal 36.0-48.0 [facility] Comment on above: Performed By: #### C BC #### [facility] [address] [place] [address] Dr. Gertrudis Peres Hemoglobin (Bld) [Mass/Vol] 12.7 g/dL Normal 12.0-16.0 [facility] [place] [facility] Comment on above: Performed By: #### C BC #### [facility] [address] [place] [address] Dr. Gertrudis Peres IG # 0.02 10e3/ul Normal 0.00-0.03 [facility] [place] [facility] Comment on above: Performed By: #### C BC #### [facility] [address] [place] [address] Dr. Gertrudis Peres IG % 0.3 % Normal 0.0-0.5 [facility] [place] [facility] Comment on above: Performed By: #### C BC #### [facility] [address] [place] [address] Dr. Gertrudis Peres LYMPH # 1.7 103/ul Normal 1.2-3.8 [facility] [place] [facility] Comment on above: Performed By: #### C BC #### [facility] [address] [place] [address] Dr. Gertrudis Peres Lymphocytes/100 WBC (Bld) 26.4 % Normal 20.5-60.0 [facility] [place] [facility] Comment on above: Performed By: #### C BC #### [facility] [address] [place] [address] Dr. Gertrudis Peres MANUAL DIFF REQ NO Normal [facility] Comment on above: Performed By: #### C BC #### [facility] [address] [place] [address] Dr. Gertrudis Peres MCH (RBC) [Entitic mass] 28.6 pg Normal 26.7-34.0 [facility] Comment on above: Performed By: #### C BC #### [facility] [address] [place] [address] Dr. Gertrudis Peres MCHC (RBC) [Mass/Vol] 33.5 g/dL Normal 29.9-35.2 [facility] Comment on above: Performed By: #### C BC #### [facility] [address] [place] [address] Dr. Gertrudis Peres MCV (RBC) [Entitic vol] 85.4 fL Normal 81.0-99.0 [facility] Comment on above: Performed By: #### C BC #### [facility] [address] [place] [address] Dr. Gertrudis Peres MONO # 0.5 103/ul Normal 0.3-0.8 [facility] Comment on above: Performed By: #### C BC #### [facility] [address] [place] [address] Dr. Gertrudis Peres Monocytes/100 WBC (Bld) 8.1 % Normal 1.7-12.0 [facility] Comment on above: Performed By: #### C BC #### [facility] [address] [place] [address] Dr. Gertrudis Peres NEUT # 3.9 103/ul Normal 1.4-6.5 [facility] Comment on above: Performed By: #### C BC #### [facility] [address] [place] [address] Dr. Gertrudis Peres Neutrophils/100 WBC (Bld) 60.4 % Normal 43.0-75.0 [facility] Comment on above: Performed By: #### C BC #### [facility] [address] [place] [address] Dr. Gertrudis Peres Platelet mean volume (Bld) [Entitic vol] 11.3 fL Normal 9.5-13.5 [facility] Comment on above: Performed By: #### C BC #### [facility] [address] [place] [address] Dr. Gertrudis Peres PLT 215 103/ul Normal 150-450 [facility] Comment on above: Performed By: #### C BC #### [facility] [address] [place] [address] Dr. Gertrudis Peres RBC 4.44 106/ul Normal 4.20-5.40 [facility] Comment on above: Performed By: #### C BC #### [facility] [address] [place] [address] Dr. Gertrudis Peres WBC 6.5 103/ul Normal 4.0-11.0 [facility] Comment on above: Performed By: #### C BC #### [facility] [address] [place] [address] Dr. Gertrudis Peres PROF 14(COMP METB)on 022 Albumin [Mass/Vol] 3.7 g/dL Normal 3.4-5.0 [facility] Comment on above: Performed By: #### C MP #### [facility] [address] [place] [address] Dr. Gertrudis Peres Albumin/Globulin [Mass ratio] 1.1 {ratio} Normal [facility] Comment on above: Performed By: #### C MP #### [facility] [address] [place] [address] Dr. Gertrudis Peres ALP [Catalytic activity/Vol] 112 U/L Normal 46-116 [facility] Comment on above: Performed By: #### C MP #### [facility] [address] [address] [address] Gertrudis Peres ALT [Catalytic activity/Vol] 23 U/L Normal 14-59 [facility] Comment on above: Performed By: #### C MP #### [facility] [address] [place] [address] Dr. Gertrudis Peres Anion gap [Moles/Vol] 7.1 mmol/L Normal [facility] Comment on above: Performed By: #### C MP #### [facility] [address] [place] [address] Dr. Gertrudis Peres AST [Catalytic activity/Vol] 18 U/L Normal 15-37 [facility] Comment on above: Performed By: #### C MP #### [facility] [address] [place] [address] Dr. Gertrudis Peres Bilirubin [Mass/Vol] 0.4 mg/dL Normal 0.2-1.0 [facility] Comment on above: Performed By: #### C MP #### [facility] [address] [place] [address] Dr. Gertrudis Peres Calcium [Mass/Vol] 8.6 mg/dL Normal 8.5-10.1 [facility] Comment on above: Performed By: #### C MP #### [facility] [address] [place] [address] Dr. Gertrudis Peres Chloride [Moles/Vol] 105 mmol/L Normal 98-107 [facility] Comment on above: Performed By: #### C MP #### [facility] [address] [place] [address] Dr. Gertrudis Peres CO2 [Moles/Vol] 34.0 mmol/L Critically high 21.0-32.0 [facility] Comment on above: Performed By: #### C MP #### [facility] [address] [address] [address] Gertrudis Peres Creatinine [Mass/Vol] 0.80 mg/dL Normal 0.55-1.02 [facility] Comment on above: Performed By: #### C MP #### [facility] [address] [address] [address] Gertrudis Peres EGFR-AF FIJIAN >60 Normal >=60 [facility] Comment on above: Performed By: #### C MP #### [facility] [address] [address] [address] Gertrudis Peres EGFR-NON AF FIJIAN >60 Normal >=60 [facility] Comment on above: Performed By: #### C MP #### [facility] [address] [address] [address] Gertrudis Peres Globulin (S) [Mass/Vol] 3.5 g/dL Normal [facility] Comment on above: Performed By: #### C MP #### [facility] [address] [address] [address] Gertrudis Peres Glucose [Mass/Vol] 119 mg/dL Critically high 74-106 [facility] Comment on above: Performed By: #### C MP #### [facility] [address] [address] [address] Gertrudis Peres Potassium [Moles/Vol] 3.1 mmol/L Critically low 3.5-5.1 [facility] Comment on above: Performed By: #### C MP #### [facility] [address] [address] [address] Gertrudis Peres Protein [Mass/Vol] 7.2 g/dL Normal 6.4-8.2 [facility] Comment on above: Performed By: #### C MP #### [facility] [address] [address] [address] Gertrudis Peres Sodium [Moles/Vol] 143 mmol/L Normal 136-145 [facility] Comment on above: Performed By: #### C MP #### [facility] [address] [place], [place] [address] Dr. Gertrudis Peres Urea nitrogen [Mass/Vol] 24.0 mg/dL Critically high 7.0-18.0 [facility] Comment on above: Performed By: #### C MP #### [facility] [address] [place], [place] [address] Dr. Gertrudis Peres Urea nitrogen/Creatinine [Mass ratio] 30.0 mg/mg Normal [facility] Comment on above: Performed By: #### C MP #### [facility] [address] [place], [place] [address] Dr. Gertrudis Peres US SINGLE QUAD UMBILon 09-29 US SINGLE QUAD UMBIL EXAM: US SINGLE LAZARO D UMBIL HISTORY: Anterior abdominal wall mass ; 3 small lumps on mid abdomen for 3 months COMPARISON: None. TECHNIQUE: Ultrasound evaluation of abdominal wall FINDINGS: Within the subcutaneous fat corresponding to patient's palpable lumps is a 1.3 cm subtle, slightly hyperechoic structure without perceivable yarbrough, no significant vascularity. Smaller 5 mm similar-appearing structure is seen. No third structure could be identified. IMPRESSION: 1. 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 Ultrasound-guided tissue sampling could be performed if clinically indicated. Electronically authenticated by: DENNY ROSE Date: 2021-09-29 14:52 Normal [facility] CBC with Diffon 10-04-2018 Abs. Basophil 0.05 k/uL Normal 0.00-0.20 [facility] Comment on above: Performed By: #### C MPX, CDP #### [facility] [address] [place] [address] Arabic Teacher: Peter Conklin MD Abs.Imm.Granulocyte <0.03 Normal 0.00-0.30 [place] Comment on above: Performed By: #### C MPX, CDP #### [facility] [address] [place] [address] Arabic Teacher: Peter Conklin MD Abs.Neutrophil (Seg) 4.64 k/uL Normal 1.50-8.10 [facility] Comment on above: Performed By: #### C MPX, CDP #### [facility] [address] [place], [place] [address] Arabic Teacher: Peter Conklin MD Basophils/100 WBC (Bld) 1 % Normal 0-2 [place] Comment on above: Performed By: #### C MPX, CDP #### [facility] [address] [place], [facility]83 Arabic Teacher: Peter Conklin MD Eosinophils #/vol (Bld) 0.35 10*3/uL Normal 0.00-0.44 [place] Comment on above: Performed By: #### C MPX, CDP #### [address] [place], [facility]83 Arabic Teacher: Peter Conklin MD Eosinophils/100 WBC (Bld) 4 % Normal 1-4 [place] Comment on above: Performed By: #### C MPX, CDP #### [address] [place], [facility]83 Arabic Teacher: Peter Conklin MD Erythrocyte distribution width Ratio (RBC) 13.8 % Normal 11.8-14.4 [place] Comment on above: Performed By: #### C MPX, CDP #### [address] [place], [place] [address] Arabic Teacher: Peter Conklin MD Hematocrit Volume Fraction (Bld) 44.8 % Normal 36.3-47.1 [place] Comment on above: Performed By: #### C MPX, CDP #### [address] [place] [address] Arabic Teacher: Peter Conklin MD Hemoglobin mass conc (Bld) 14.1 g/dL Normal 11.9-15.1 [place] Comment on above: Performed By: #### C MPX, CDP #### [address] [place] [address] Arabic Teacher: Peter Conklin MD Immature granulocytes #/vol (Bld) 0 % Normal 0 [place] Comment on above: Performed By: #### C MPX, CDP #### [facility] [address] [place], [place] [id number] Arabic Teacher: Peter Conklin MD Lymphocytes #/vol (Bld) 2.23 10*3/uL Normal 1.10-3.70 [place] Comment on above: Performed By: #### C MPX, CDP #### [facility] [address] [place], [place] [id number] Arabic Teacher: Peter Conklin MD Lymphocytes/100 WBC (Bld) 27 % Normal 24-43 [place] Comment on above: Performed By: #### C MPX, CDP #### [facility] [address] [place], [place] [id number] Arabic Teacher: Peter Conklin MD MCH Entitic mass (RBC) 27.8 pg Normal 25.2-33.5 [place] Comment on above: Performed By: #### C MPX, CDP #### [address] [place], [place] [id number] Arabic Teacher: Peter Conklin MD MCHC mass conc (RBC) 31.5 g/dL Normal 28.4-34.8 [facility] Comment on above: Performed By: #### C MPX, CDP #### [facility] [address] [place], [place] [id number] Arabic Teacher: Peter Conklin MD MCV Entitic volume (RBC) 88.4 fL Normal 82.6-102.9 [place] Comment on above: Performed By: #### C MPX, CDP #### [facility] [address] [place], [place] [id number] Arabic Teacher: Peter Conklin MD Monocytes #/vol (Bld) 0.84 10*3/uL Normal 0.10-1.20 [place] Comment on above: Performed By: #### C MPX, CDP #### [facility] [address] [place], [place] [id number] Arabic Teacher: Peter Conklin MD Monocytes/100 WBC (Bld) 10 % Normal 3-12 [place] Comment on above: Performed By: #### C MPX, CDP #### [facility] [address] [place], [facility]83 Arabic Teacher: Peter Conklin MD Neutrophil (Seg) 58 % Normal 36-65 [facility] Comment on above: Performed By: #### C MPX, CDP #### [facility] [address] [place], [place] [id number] Arabic Teacher: Peter Conklin MD NRBC Automated 0.0 per 100 WBC Normal 0.0 [place] Comment on above: Performed By: #### C MPX, CDP #### [facility] [address] [place], [place] [id number] Arabic Teacher: Peter Conklin MD Platelet mean volume Entitic volume (Bld) 11.7 fL Normal 8.1-13.5 [facility] Comment on above: Performed By: #### C MPX, CDP #### [facility] [address] [place] [address] Arabic Teacher: Peter Conklin MD Platelets #/vol (Bld) 269 10*3/uL Normal 138-453 [place] Comment on above: Performed By: #### C MPX, CDP #### [facility] [address] [place], [place] [id number] Arabic Teacher: Peter Conklin MD RBC #/vol (Bld) 5.07 10*6/uL Normal 3.95-5.11 [facility] Comment on above: Performed By: #### C MPX, CDP #### [facility] [address] [place], [place] [id number] Arabic Teacher: Peter Conklin MD WBC #/vol (Bld) 8.1 10*3/uL Normal 3.5-11.3 [facility] Comment on above: Performed By: #### C MPX, CDP #### [facility] [address] [place], [place] [id number] Arabic Teacher: Peter Conkiln MD Auto Diff Performed NOT REPORTED Normal [facility] Comment on above: Performed By: #### C MPX, CDP #### [facility] [address] [place] [id number] Arabic Teacher: Peter Conklin MD Platelets #/vol (Bld) NOT REPORTED Normal [place] Comment on above: Performed By: #### C MPX, CDP #### [address] [place], [facility]83 Arabic Teacher: Peter Conklin MD RBC morphology finding Nom (Bld) NOT REPORTED Normal [place] Comment on above: Performed By: #### C MPX, CDP #### [facility] [address] [place], [place] [id number] Arabic Teacher: Peter Conklin MD WBC Morphology NOT REPORTED Normal [facility] Comment on above: Performed By: #### C MPX, CDP #### [facility] [address] [place], [facility]83 Arabic Teacher: Peter Conklin MD CT ABDOMEN PELVIS WO CONTRAS Ton 10-04-2018 CT ABDOMEN PELVIS WO CONTRAST EXAMINATION: CT OF THE ABDOMEN AND PELVIS WITHOUT CONTRAST 10/04/2018 3:17 am TECHNIQUE: CT of the abdomen and pelvis was performed without the administration of intravenous contrast. Multiplanar reformatted images are provided for review. Dose modulation, iterative reconstruction, and/or weight based adjustment of the mA/kV was utilized to reduce the radiation dose to as low as reasonably achievable. COMPARISON: 12/25/2015 HISTORY: ORDERING SYSTEM PROVIDED HISTORY: suspect right sided stone TECHNOLOGIST PROVIDED HISTORY: FINDINGS: Lower Chest: Visualized portion of the lower chest demonstrates no acute abnormality. Organs: Cholecystectomy. Dilated common bile duct up to 1.4 cm, grossly stable compared to prior study. Unenhanced parenchymal attenuation pattern of the liver, spleen, adrenal glands and pancreas is unremarkable The kidneys appear normal in size without evidence of a contour distorting mass. No renal stone or hydronephrosis. No perinephric stranding. Punctate hyperdensities are present in left kidney upper pole and right kidney lower pole, left seen previously. Stable prominence of the right renal collecting system without obstructing calculus visualized. Previously seen right UVJ calculus has apparently advanced and now lies in the midline within the urinary bladder posteriorly.. GI/Bowel: No bowel dilatation to suggest obstruction. No evidence of acute appendicitis. Pelvis: The urinary bladder appears otherwise unremarkable. The pelvic organs demonstrate no acute abnormality. Peritoneum/Retroperiton eum: The abdominal aorta is normal in caliber. No gross lymphadenopathy. No fluid collection. No free air. Bones/Soft Tissues: No acute findings. Status post lumbosacral fusion with decompression. IMPRESSION: Punctate calculi right kidney lower pole and left kidney upper pole calices. Stable mild right hydroureteronephrosis, however previously seen calculus at right UVJ now lies in a dependent position in the urinary bladder in the midline. Interpreted by: Sushant Dobbs MD Signed by: Sushant Dobbs MD 10/04/18 Final result Normal [place] [facility] Metabolic Pr/rfx MGon 0 10-04-2018 (cont.) Normal [place] Comment on above: Result Comment: Aver age GFR for 60-69 years old: 85 mL/min/1.73sq m Chronic Kidney Disease: <60 mL/min/1.73sq m Kidney failure: <15 mL/min/1.73sq m eGFR calculated using average adult body mass. Additional eGFR calculator available at: http://www.[employer]/multiple_crcl_2012.htm Performed By: #### C MPX, CDP #### [facility] [address] [place] [address] Arabic Teacher: Peter Conklin MD Albumin mass conc 4.3 g/dL Normal 3.5-5.2 [facility] Comment on above: Performed By: #### C MPX, CDP #### [facility] [address] [place], [place] [phone] Arabic Teacher: Peter Conklin MD Albumin/Globulin mass ratio 1.2 {ratio} Normal 1.0-2.5 [place] Comment on above: Performed By: #### C MPX, CDP #### [facility] [address] [place], [place] [id number] Arabic Teacher: Peter Conklin MD Alkaline Phos 184 U/L High 35-104 [facility] Comment on above: Performed By: #### C MPX, CDP #### [facility] [address] [place], [place] [id number] Arabic Teacher: Peter Conklin MD ALT enzyme act/vol 16 U/L Normal 5-33 [place] Comment on above: Performed By: #### C MPX, CDP #### [facility] [address] [place], [place] [id number] Arabic Teacher: Peter Conklin MD Anion gap molar conc 13 mmol/L Normal 9-17 [facility] Comment on above: Performed By: #### C MPX, CDP #### [facility] [address] [place], [place] [id number] Arabic Teacher: Peter Conklin MD AST enzyme act/vol 20 U/L Normal <32 [place] Comment on above: Performed By: #### C MPX, CDP #### [facility] [address] [place], [place] [id number] Arabic Teacher: Peter Conklin MD Bilirubin Ql (U) 0.36 mg/dL Normal 0.3-1.2 [facility] Comment on above: Performed By: #### C MPX, CDP #### [facility] [address] [place], [place] [id number] Arabic Teacher: Peter Conklin MD BUN/CRE Ratio 53 High 9-20 [facility] Comment on above: Performed By: #### C MPX, CDP #### [facility] [address] [place], [place] [id number] Arabic Teacher: Peter Conklin MD Calcium mass conc 9.2 mg/dL Normal 8.6-10.4 [facility] Comment on above: Performed By: #### C MPX, CDP #### [facility] [address] [place], [place] [id number] Arabic Teacher: Peter Conklin MD Chloride molar conc 103 mmol/L Normal 98-107 [place] Comment on above: Performed By: #### C MPX, CDP #### [facility] [address] [place], [place] [id number] Arabic Teacher: Peter Conklin MD CO2 molar conc 25 mmol/L Normal 20-31 [facility] Comment on above: Performed By: #### C MPX, CDP #### [facility] [address] [place], [place] [id number] Arabic Teacher: Peter Conklin MD Creatinine mass conc 0.60 mg/dL Normal 0.50-0.90 [facility] Comment on above: Performed By: #### C MPX, CDP #### [facility] [address] [place], [place] [id number] Arabic Teacher: Peter Conklin MD GFR, Amer >60 Normal >60 [facility] Comment on above: Performed By: #### C MPX, CDP #### [facility] [address] [place], [place] [id number] Arabic Teacher: Peter Conklin MD GFR,non Amer >60 Normal >60 [facility] Comment on above: Performed By: #### C MPX, CDP #### [facility] [address] [place], [place] [id number] Arabic Teacher: Peter Conklin MD Glucose mass conc 123 mg/dL High 70-99 [facility] Comment on above: Performed By: #### C MPX, CDP #### [facility] [address] [place], [place] [id number] Arabic Teacher: Peter Conklin MD Potassium molar conc 4.0 mmol/L Normal 3.7-5.3 [facility] Comment on above: Performed By: #### C MPX, CDP #### [facility] [address] [place], [place] [id number] Arabic Teacher: Peter Conklin MD Protein mass conc 7.8 g/dL Normal 6.4-8.3 [facility] Comment on above: Performed By: #### C MPX, CDP #### [facility] [address] [place], [place] [id number] Arabic Teacher: Peter Conklin MD Sodium molar conc 141 mmol/L Normal 135-144 [facility] Comment on above: Performed By: #### C MPX, CDP #### [facility] [address] [place], [place] [id number] Arabic Teacher: Peter Conklin MD Staging: Normal [place] Comment on above: Result Comment: Stag e 1: Some kidney damage normal GFR Stage 2: Mild kidney damage GFR 60-89 Stage 3: Moderate kidney damage GFR 30-59 Stage 4: Severe kidney damage GFR 15-29 Stage 5: Severe kidney damage GFR <15 ESRD - chronic treatment by dialysis or transplant Performed By: #### C MPX, CDP #### [facility] [address] [place], [place] [id number] Arabic Teacher: Peter Conklin MD Urea nitrogen mass conc 32 mg/dL High 8-23 [place] Comment on above: Performed By: #### C MPX, CDP #### [facility] [address] [place] [address] Arabic Teacher: Peter Conklin MD Urinalysis, Routineon 2018 Acetoacetic Acid,Ur Negative Normal NEG [place] Comment on above: Performed By: #### U A, UMICAO #### [facility] [address] [place] [address] Arabic Teacher: Peter Conklin MD Bilirubin, SemiQt,Ur Negative Normal [facility] Comment on above: Performed By: #### U A, UMICAO #### [facility] [address] [place] [address] Arabic Teacher: Peter Conklin MD Color Nom (U) YELLOW Normal YEL [facility] Comment on above: Performed By: #### U A, UMICAO #### [facility] [address] [place] [address] Arabic Teacher: Peter Conklin MD Glucose,Semi-qnt,Ur Negative Normal [facility] Comment on above: Performed By: #### U A, UMICAO #### [facility] [address] [place] [address] Arabic Teacher: Peter Conklin MD Hemoglobin, Ur 3+ Abnormal NEG [facility] Comment on above: Performed By: #### U A, UMICAO #### [facility] [address] [place] [address] Arabic Teacher: Peter Conklin MD Leuckocyte Esterase SMALL Abnormal [facility] Comment on above: Performed By: #### U A, UMICAO #### [facility] [address] [place] [address] Arabic Teacher: Peter Conklin MD Nitrite,Ur Negative Normal [facility] Comment on above: Performed By: #### U A, UMICAO #### [facility] [address] [place] [address] Arabic Teacher: Peter Conklin MD PH,Ur 5.5 Normal 5.0-9.0 [place] Comment on above: Performed By: #### U A, UMICAO #### [facility] [address] [place] [address] Arabic Teacher: Peter Conklin MD Protein mass conc (U) TRACE Abnormal NEG [place] Comment on above: Performed By: #### U A, UMICAO #### [facility] [address] [place] [address] Arabic Teacher: Peter Conklin MD Spec. [place],Ur >1.030 High 1.010-1.020 [facility] Comment on above: Performed By: #### U A, UMICAO #### [facility] [address] [place] [address] Arabic Teacher: Peter Conklin MD Turbidity SLIGHTLY CLOUDY Abnormal CLEAR [facility] Comment on above: Performed By: #### U A, UMICAO #### [facility] [address] [place] [address] Arabic Teacher: Peter Conklin MD Urobilinogen,Ur Normal Normal NORM [facility] Comment on above: Performed By: #### U A, UMICAO #### [facility] [address] [place] [address] Arabic Teacher: Peter Conklin MD Comment NOT REPORTED Normal [place] Comment on above: Performed By: #### U A, UMICAO #### [facility] [address] [place] [address] Arabic Teacher: Peter Conklin MD Urinalysis,Microon 9 ----- Normal [place] Comment on above: Performed By: #### U A, UMICAO #### [facility] [address] [place] [address] Arabic Teacher: Peter Conklin MD Bacteria LM.HPF #/area (Urine sed) TRACE Abnormal NONE [place] Comment on above: Performed By: #### U A, UMICAO #### [facility] [address] [place], [place] [address] Arabic Teacher: Peter Conklin MD Epithelial cells LM.HPF #/area (Urine sed) 2 TO 5 Normal 0-25 [place] Comment on above: Performed By: #### U A, UMICAO #### [facility] [address] [place], [place] [address] Arabic Teacher: Peter Conklin MD Mucus Strands TRACE Abnormal [facility] Comment on above: Performed By: #### U A, UMICAO #### [facility] [address] [place], [place] [address] Arabic Teacher: Peter Conklin MD RBC #/vol (U) 50 TO 100 Normal 0-2 [facility] Comment on above: Performed By: #### U A, UMICAO #### [facility] [address] [place], [facility]83 Arabic Teacher: Peter Conklin MD WBC #/vol (U) 2 TO 5 Normal 0-5 [facility] Comment on above: Performed By: #### U A, UMICAO #### [facility] [address] [place] [address] Arabic Teacher: Peter Conklin MD Amorphous sediment LM Ql (Urine sed) NOT REPORTED Normal [facility] Comment on above: Performed By: #### U A, UMICAO #### [facility] [address] [place] [address] Arabic Teacher: Peter Conklin MD Casts LM.LPF #/area (Urine sed) NOT REPORTED Normal [place] Comment on above: Performed By: #### U A, UMICAO #### [facility] [address] [place], [place] [id number] Arabic Teacher: Peetr Conklin MD Crystals LM Nom (Urine sed) NOT REPORTED Normal NONE [place] Comment on above: Performed By: #### U A, UMICAO #### [facility] [address] [place], [place] [phone] Arabic Teacher: Peter Conklin MD Epithelial, Renal NOT REPORTED Normal 0 [place] Comment on above: Performed By: #### U A, UMICAO #### [facility] [address] [place] [address] Arabic Teacher: Peter Conklin MD Other Observations NOT REPORTED Normal NREQ [facility] Comment on above: Performed By: #### U A, UMICAO #### [facility] [address] [place], [place] [id number] Arabic Teacher: Peter Conklin MD Trichomonas NOT REPORTED Normal NONE [facility] Comment on above: Performed By: #### U A, UMICAO #### [facility] [address] [place], [place] [id number] Arabic Teacher: Peter Conklin MD Yeast LM Ql (Urine sed) NOT REPORTED Normal [facility] Comment on above: Performed By: #### U A, UMICAO #### [facility] [address] [place], [place] [id number] Arabic Teacher: Peter Conklin MD Vital Signs Date Time Vital Sign Value Performing Clinician Facility 05-03-2023 08:30-0500 Body height 161.29 cm [employer] Other [facility] [employer] Other 05-03-2023 08:30-0500 Body mass index (BMI) [Ratio] 35.39 kg/m2 [employer] Other [employer] [facility] [employer] Other 05-03-2023 08:30-0500 Body weight 92.08 kg [employer] Other [facility] [employer] Other 05-03-2023 08:30-0500 Diastolic blood pressure 79 mm[Hg] [facility] Other [employer] Other 05-03-2023 08:30-0500 Respiratory rate 12 /min [facility] Other [employer] Other 05-03-2023 08:30-0500 Systolic blood pressure 133 mm[Hg] [facility] Other [employer] Other 03-08-2023 09:30-0400 Body height 161.29 cm [facility] Other [employer] Other 03-08-2023 09:30-0400 Body mass index (BMI) [Ratio] 35.01 kg/m2 [facility] Other [employer] Other 03-08-2023 09:30-0400 Body weight 91.08 kg [facility] Other [employer] Other 03-08-2023 09:30-0400 Diastolic blood pressure 83 mm[Hg] [facility] Other [employer] Other 03-08-2023 09:30-0400 Respiratory rate 12 /min [facility] Other [employer] Other 03-08-2023 09:30-0400 Systolic blood pressure 134 mm[Hg] [facility] Other [employer] Other 01-04-2023 11:30-0400 Body height 161.29 cm [facility] Other [employer] Other 01-04-2023 11:30-0400 Body mass index (BMI) [Ratio] 34.69 kg/m2 [facility] Other [employer] Other 01-04-2023 11:30-0400 Body weight 90.27 kg [facility] Other [employer] Other 01-04-2023 11:30-0400 Diastolic blood pressure 81 mm[Hg] [facility] Other [employer] Other 01-04-2023 11:30-0400 Respiratory rate 12 /min [facility] Other [employer] network Other 01-04-2023 11:30-0400 Systolic blood pressure 131 mm[Hg] Mckinley Ball Other [employer] Other 12-12-2022 07:50-0400 Body height 153.1 cm Marianne Li MD Work Phone: [facility] 12-12-2022 07:50-0400 Body mass index (BMI) [Ratio] 38.4 kg/m2 Marianne Li MD Work Phone: [facility] 12-12-2022 07:50-0400 Body weight 90 kg Marianne Li MD Work Phone: [facility] 11-01-2022 14:30-0400 Body height 161.29 cm Keara Bullard Other [employer] Other 11-01-2022 14:30-0400 Body mass index (BMI) [Ratio] 35.22 kg/m2 Keara Bullard Other [employer] Other 11-01-2022 14:30-0400 Body weight 91.63 kg Keara Bullard Other [employer] Other 11-01-2022 14:30-0400 Diastolic blood pressure 84 mm[Hg] Keara Bullard Other [employer] Other 11-01-2022 14:30-0400 Systolic blood pressure 130 mm[Hg] Keara Juan Miguel Other [employer] Other 09-28-2022 10:05-0400 Diastolic blood pressure 75 mm[Hg] DO Voölks Work Phone: [facility] 09-28-2022 10:05-0400 Heart rate 60 /min DO Voölks Work Phone: [facility] 09-28-2022 10:05-0400 Respiratory rate 16 /min DO Voölks Work Phone: [facility] 09-28-2022 10:05-0400 SaO2% (BldA) [Mass fraction] 98 % DO Voölks Work Phone: [facility] 09-28-2022 10:05-0400 Systolic blood pressure 153 mm[Hg] DO Voölks Work Phone: [facility] 09-28-2022 07:48-0400 Body height 160.02 cm DO Voölks Work Phone: [facility] 09-28-2022 07:48-0400 Body temperature 98.9 [degF] DO Voölks Work Phone: [facility] 09-28-2022 07:48-0400 Body weight 93.89 kg DO Voölks Work Phone: [facility] 07-04-2022 09:30-0500 Body height 161.29 cm Mckinley Ball Other [employer] Other 07-04-2022 09:30-0500 Body mass index (BMI) [Ratio] 36.3 kg/m2 Mckinley Ball Other [employer] Other 07-04-2022 09:30-0500 Body weight 94.44 kg Mckinley Ball Other [employer] Other 07-04-2022 09:30-0500 Diastolic blood pressure 78 mm[Hg] Mckinley Ball Other [employer] Other 07-04-2022 09:30-0500 Respiratory rate 12 /min Mckinley Ball Other [employer] Other 07-04-2022 09:30-0500 Systolic blood pressure 122 mm[Hg] Mckinley Ball Other [employer] Other 03-09-2022 15:30-0400 Body height 161.29 cm Arabella Hawk Other [employer] Other 03-09-2022 15:30-0400 Body mass index (BMI) [Ratio] 36.79 kg/m2 Arabella Arechiga Other [employer] Other 03-09-2022 15:30-0400 Body temperature 97.1 [degF] Arabella Arechiga Other [employer] Other 03-09-2022 15:30-0400 Body weight 95.71 kg Arabella Arechiga Other [employer] Other 03-09-2022 15:30-0400 Diastolic blood pressure 85 mm[Hg] Arabella Arechiga Other [employer] Other 03-09-2022 15:30-0400 Respiratory rate 18 /min Arabella Arechiga Other [employer] Other 03-09-2022 15:30-0400 SaO2% (BldA) [Mass fraction] 99 % Arabella Aerchiga Other [employer] Other 03-09-2022 15:30-0400 Systolic blood pressure 135 mm[Hg] Arabella Arechiga Other [employer] Other Encounters Encounter Date Encounter Type Care Provider Facility Start: 06-12-2023 End: 06-12-2023 ambulatory DELL MACHUCAO Not Available Start: 06-11-2023 End: 06-11-2023 ambulatory IVONNE KELBLEY Not Available Start: 06-07-2023 End: 06-07-2023 ambulatory IVONNE KELBLEY Not Available Start: 06-05-2023 End: 06-05-2023 ambulatory IVONNE KELBLEY Not Available Start: 05-31-2023 End: 05-31-2023 ambulatory IVONNE KELBLEY Not Available Start: 05-29-2023 End: 05-29-2023 ambulatory RACHELLE TATTERSALL Not Available Start: 05-24-2023 End: 05-24-2023 ambulatory RACHELLE TATTERSALL Not Available Start: 05-22-2023 End: 05-22-2023 ambulatory RACHELLE TATTERSALL Not Available Start: 05-18-2023 End: 05-18-2023 ambulatory Mckinley Alfaro Other [employer] Other Start: 05-18-2023 Telephone encounter Mckinley Alfaro [facility] Start: 05-10-2023 End: 05-10-2023 ambulatory RACHELLE TATTERSALL Not Available Start: 05-08-2023 End: 05-08-2023 ambulatory JIL HONG Not Available Start: 05-07-2023 End: 05-08-2023 ambulatory AL SALGADO Not Available Start: 05-03-2023 End: 05-03-2023 ambulatory IVONNE KELBLEY [employer] Other Start: 05-03-2023 Office outpatient vi sit 15 minutes Mckinley Alfaro [facility] Start: 04-30-2023 End: 05-01-2023 ambulatory IVONNE KELBLEY Not Available Start: 04-25-2023 End: 04-25-2023 ambulatory JOHN Mina APLING Not Available Start: 04-20-2023 End: 04-21-2023 ambulatory IVONNE CASTELLANO Not Available Start: 04-17-2023 End: 04-17-2023 ambulatory JIL HONG Not Available Start: 04-16-2023 End: 04-16-2023 ambulatory YSABEL BAH Not Available Start: 04-09-2023 End: 04-09-2023 ambulatory YSABEL BAH Not Available Start: 04-06-2023 End: 04-09-2023 ambulatory LYRIC RODRIGUEZ Not Available Start: 04-03-2023 End: 04-03-2023 ambulatory YSABEL BAH Not Available Start: 03-30-2023 End: 04-02-2023 ambulatory JOHN Mina APLING Not Available Start: 03-08-2023 End: 03-08-2023 ambulatory Mckinley Alfaro Other [employer] Other Start: 03-08-2023 Office outpatient vi sit 15 minutes Mckinley Alfaro [facility] Start: 02-07-2023 End: 02-07-2023 ambulatory Mckinley Alfaro Other [employer] Other Start: 02-07-2023 Telephone encounter Mckinley Alfaro [facility] Start: 01-04-2023 End: 01-04-2023 ambulatory Mckinley Alfaro Other [employer] Other Start: 01-04-2023 Encounter for other preprocedural examination Mckinley Dominic [facility] Start: 01-04-2023 Office outpatient vi sit 25 minutes Mckinley Alfaro [facility] Start: 12-21-2022 Message Mckinley chase Work Phone: [facility] 219 DO Work Phone: Start: 12-12-2022 End: 12-12-[address] Marianne Li Facility:[id number] Start: 12-12-2022 End: 12-12-2022 Subsequent hospital visit by physician Marianne Li MD Work Phone: [facility] Comment on above: Polyp of stomach and duodenum Start: 11-16-2022 End: 11-16-2022 ambulatory Mckinley Alfaro Other [employer] Other Start: 11-16-2022 Telephone encounter Mckinley BRYANT [facility] Start: 11-01-2022 End: 11-01-2022 ambulatory Keara Bullard Other [employer] Other Start: 11-01-2022 Office outpatient vi sit 15 minutes Keara Bullard [facility] Start: 09-28-2022 End: 09-28-2022 ambulatory [facility] Facility:[facility] Start: 09-28-2022 End: 09-28-2022 Admission to same day surgery center DO [facility] Work Phone: [facility] Work Phone: Start: 09-28-2022 End: 09-28-2022 ambulatory DO [facility] Work Phone: [facility] Work Phone: Start: 07-20-2022 End: 07-20-2022 ambulatory Mckinley Alfaro Other [employer] Other Start: 07-20-2022 Telephone encounter Mckinley BRYANT Corin[facility] Start: 07-19-2022 End: 07-20-[address] MCKINLEY ALFARO Facility: Start: 07-04-2022 End: 07-04-2022 ambulatory Mckinley Alfaro Other [employer] Other Start: 07-04-2022 Office outpatient vi sit 25 minutes Mckinley Alfaro [facility] Start: 06-14-2022 End: 06-14-2022 ambulatory Arabella Arechiga Other [employer] Other Start: 06-14-2022 Telephone encounter Arabella vega [facility] Start: 06-13-2022 End: 06-14-[address] MCKINLEY ALFARO Facility:[facility] Start: 06-07-2022 End: 06-07-[address] MCKINLEY ALFARO Facility:[facility] Start: 05-03-2022 End: 05-04-[address] MCKINLEY ALFARO Facility:[facility] Start: 03-31-2022 End: 04-01-[address] MCKINLEY ALFARO Facility:[facility] Start: 03-09-2022 End: 03-09-2022 ambulatory Arabella Arechiga Other [employer] Other Start: 03-09-2022 Office outpatient vi sit 15 minutes Arabella Arechiga [facility] [place] Start: 09-29-2021 End: 09-30-[address] MCKINLEY ALFARO Facility:[facility] Start: 10-05-2018 End: 10-05-2018 Emergency department patient visit MCKINLEY ALFARO [place] Start: 10-04-2018 End: 10-04-2018 Emergency department patient visit HARJIT OLIVIA [place] Start: 09-25-2017 End: 09-26-2017 Ambulatory DEFAULT PHYSICIAN Facility:[facility] Start: 09-07-2017 End: 09-08-2017 Ambulatory DEFAULT PHYSICIAN Facility:[facility] Procedures Date Procedure Procedure Detail Performing Clinician Start: 12-12-2022 SURGICAL PATHOLOGY RESULTS Marianne Li MD Work Phone: Start: 12-12-2022 Esophagoscopy flexible transoral ultrasound exam Marianne Li MD Work Phone: Start: 09-28-2022 Esophagogastroduodenoscopy DO Arnoldo use Work Phone: Start: 10-04-2018 Urinalysis microscopic only HARJIT EITCHES Start: 10-04-2018 Urnls dip stick/tablet rgnt auto w/o microscopy HARJIT EITCHES Start: 10-04-2018 Ct abdomen & pelvis w/o contrast material HARJIT EITCHES Start: 10-04-2018 INSERT PERIPHERAL IV HARJIT EITCHES Start: 10-04-2018 Blood count complete auto&auto difrntl wbc HARJIT EITCHES Plan of Treatment Date Care Activity Detail Author Start: 01-19-2023 Influenza vaccination Influenza Vaccine (#1) [facility] Start: 09-28-2022 [facility] Start: 2017 Pneumococcal Vaccine: 65+ Years (1 - PCV) Pneumococcal Vaccine: 65+ Years (1 - PCV) [facility] Start: 2002 Zoster Vaccines (1 of 2) Zoster Vaccines (1 of 2) [facility] Start: 1992 Screening for malignant neoplasm of breast Mammogram [facility] Start: 1974 DTaP/Tdap/Td Vaccines (1 - Tdap) DTaP/Tdap/Td Vaccines (1 - Tdap) [facility] Start: 1970 Hepatitis C screening Hepatitis C Screening [facility] Start: 1952 COVID-19 Vaccine (#1) COVID-19 Vaccine (#1) [facility] Start: 1952 Lipid panel Lipid Panel [facility] Start: 1952 Screening for malignant neoplasm of colon [facility] Start: 1952 Screening for osteoporosis Bone Density Scan [facility] Start: 1950 Yearly Adult Physical Yearly Adult Physical [facility] Patient Education Esophageal Dil ation Hiatal Hernia (DC) Stomach Polyps [facility] Work Phone: Immunizations Immunization Date Immunization Notes Care Provider Radha gunn 03-08-2023 influenza, high dose seasonal, preservative-free Mckinley Alfaro Other [employer] Other 04-07-2022 diphtheria, tetanus toxoids and acellular pertussis vaccine, unspecified formulation Mckinley Alfaro Other [employer] Other 03-01-2022 influenza virus vaccine, split virus (incl. purified surface antigen) Mckinley Alfaro Other [employer] Other 08-04-2019 pneumococcal conjuga te vaccine, 13 valent Mckinley Alfaro Other [employer] [facility] [employer] Other Payers Date Payer Category Payer Self-pay [id number] 2022 Unknown [id number] 2015 Unknown [id number] 2015 Unknown [id number] 1959 Medicare [id number] 2.16.840.1.718088.19 1959 Self-pay [id number] 1959 Unknown [id number] 2.16.840.1.038277.19 1952 Unknown [id number] 2.16.840.1.888202.3.579.2.1 73 1952 Unknown [id number] 2.16.840.1.466908.3.579.2.1 73 1952 Unknown [id number] 2.16.840.1.943386.3.579.2.5 93 1952 Unknown [id number] 2.16.840.1.016573.3.579.2.5 93 1952 Unknown [id number] 2.16.840.1.375098.3.579.2.5 93 1952 Unknown [id number] 2.16.840.1.938635.3.579.2.5 93 1952 Unknown [id number] 2.16.840.1.687981.3.579.2.5 93 1952 Unknown [id number] 2.16.840.1.844979.3.579.2.1 069 1952 Unknown [id number] 2.16.840.1.898363.3.579.2.1 259 1952 Unknown [id number] 2.16.840.1.143172.3.579.2.1 259 1952 Unknown [id number] 2.16.840.1.713565.3.579.2.1 259 1952 Unknown [id number] 2.16.840.1.164206.3.579.2.1 259 1952 Unknown [id number] 2.16.840.1.465035.3.579.2.1 259 1952 Unknown [id number] 2.16.840.1.587444.3.579.2.1 259 1952 Unknown [id number] 2.16.840.1.521117.3.579.2.1 259 1952 Unknown [id number] 2.16.840.1.306314.3.579.2.1 259 1952 Unknown [id number] 2.16.840.1.102329.3.579.2.1 259 1952 Unknown [id number] 2.16.840.1.905190.3.579.2.1 259 1952 Unknown [id number] 2.16.840.1.605583.3.579.2.1 259 1952 Unknown [id number] 2.16.840.1.781395.3.579.2.1 259 1952 Unknown [id number] 2.16.840.1.244020.3.579.2.1 259 1952 Unknown [id number] 2.16.840.1.188057.3.579.2.1 259 1952 Unknown [id number] 2.16.840.1.854476.3.579.2.1 259 1952 Unknown [id number] 2.16.840.1.738543.3.579.2.1 259 1952 Unknown [id number] 2.16.840.1.117025.3.579.2.1 259 1952 Unknown [id number] 2.16.840.1.330588.3.579.2.1 259 1952 Unknown [id number] 2.16.840.1.850857.3.579.2.1 259 1952 Unknown [id number] 2.16.840.1.817560.3.579.2.1 259 1952 Unknown [id number] 2.16.840.1.165089.3.579.2.1 259 Medicare Medicare-OP No Part B [id number] Unknown Unknown [id number] 2.16.840.1.088220.3.579.2.5 93 Unknown [id number] 2.16.840.1.584093.3.579.2.5 31 Worker's Compensation [employer] Misc [id number] Social History Date Type Detail Facility Unknown if ever smoked [facility] [employer] Other Sex Assigned At [facility] [employer] Other Start: 09-28-2022 Tobacco smoking status TNIS Never smoked tobacco (finding) [facility] Start: 1950 Sex Assigned At Female F [facility] Tobacco smoking status [facility] Tobacco smoking consumption unknown [facility] Work Phone: Start: 1950 Sex Assigned At Not on file [facility] Work Phone: Goals Date Patient Goal Desired Activity /State Clinical Notes 03-09-2022 to 05-03-2023 Note Date & Type Note Facility 05-03-2023 Evaluation note Encounter Date Diagnosis Assessment Notes Apr, Age-related osteoporosis without current pathological fracture (ICD-10 - M81.0) Ca and Vit D supplements. Weight bearing exercises Long discussion concerning treatment - Reclast vs Prolia - pros and cons of both - discussed osteonecrosis of jaw and hip fx Apr, Lumbar spondylosis (ICD-10 - M47.816) The patient is instructed to avoid bending, twisting or lifting. They are to use intermittent heat and ice as needed. They may schedule a massage or gentle manipulation. They may safely use Tylenol as needed. Apr, Morbid (severe) obesity due to excess calories (ICD-10 - E66.01) This patient has been instructed on a low-fat, high-fiber diet. They are instructed to reduce calories, portion sizes and snacks. It is recommended that they exercise for 30 minutes, 3-5 times weekly. Apr, Body mass index [BMI] 35.0-35.9, adult (ICD-10 - Z68.35) [employer] Other 10-19-2023 Evaluation note* Encounter Date Diagnosis Assessment Notes Treatment Notes Treatment Clinical Notes Feb, Strain of lumbar region, initial encounter (ICD-10 - S39.012A) The patient is instructed to avoid bending, twisting or lifting. They are to use intermittent heat and ice as needed. They may schedule a massage or gentle manipulation. They may safely use Tylenol as needed. XR to r/o fracture Continue Mobic and add Normandy for now. Consider PT if XR negative Feb, Right hip pain (ICD-10 - M25.551) XR to determine degree of arthritis and r/o fx. ROM exercises COntinue Mobic and add Normandy for now. Feb, Seborrheic dermatitis (ICD-10 - L21.9) Trial of topical steroids bid Discussed referral to Dermatology Feb, Morbid (severe) obesity due to excess calories (ICD-10 - E66.01) This patient has been instructed on a low-fat, high-fiber diet. They are instructed to reduce calories, portion sizes and snacks. It is recommended that they exercise for 30 minutes, 3-5 times weekly. Feb, Body mass index [BMI] 35.0-35.9, adult (ICD-10 - Z68.35) [employer] Other 08-17-2023 Evaluation note* Encounter Date Diagnosis Assessment Notes Treatment Notes Treatment Clinical Notes Dec, Primary hypertension (ICD-10 - I10) Stable, continue medication w/o interruption. Dec, Preop exam for internal medicine (ICD-10 - Z01.818) Patient seen and examined for preoperative evaluation. I have reviewed her medications and instructed her to hold the HCTZ the morning of her procedure. She was also instructed to stop Mobic and start Normandy, 7 days prior to her procedure. Dec, Gastroesophageal reflux disease with esophagitis without hemorrhage (ICD-10 - K21.00) Stable, continue medication w/o interruption Dec, Traumatic complete tear of right rotator cuff, subsequent encounter (ICD-10 - S46.011D) Scheduled for arthroscopic repair w/ Dr. Hong. 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 Refer to note in patient chart for documentation of history and physical. Providers: Marianne Li MD (Doctor), Sara Castillo RN (Nurse), Maciel Ferrer, Suppression Crew Leader Referring: Marianne Li MD Medicines: See the Anesthesia note for documentation of the administered medications Complications: No immediate complications. Procedure: Pre-Anesthesia Assessment: - Prior to the procedure, a History and Physical was performed, and patient medications and allergies were reviewed. The patient's tolerance of previous anesthesia was also reviewed. The risks and benefits of the procedure and the sedation options and risks were discussed with the patient. All questions were answered, and informed consent was obtained. Prior Anticoagulants: The patient has taken no anticoagulant or antiplatelet agents. ASA Grade Assessment: III - A patient with severe systemic disease. After reviewing the risks and benefits, the patient was deemed in satisfactory condition to undergo the procedure. After obtaining informed consent, the endoscope was passed under direct vision. Throughout the procedure, the patient's blood pressure, pulse, and oxygen saturations were monitored continuously. The ultrasound scope was introduced through the mouth, and advanced to the second part of duodenum. The Gastroscope was introduced through the mouth, and advanced to the second part of duodenum. The upper EUS was accomplished without difficulty. The patient tolerated the procedure well. Findings: ENDOSCOPIC FINDING: : The examined esophagus was normal. The entire examined stomach was normal. A single 8 mm submucosal nodule with a localized distribution was found in the second portion of the duodenum. This was biopsied with a cold forceps for histology. The exam of the duodenum was otherwise normal. ENDOSONOGRAPHIC FINDING: : An oval intramural (subepithelial) lesion was found in the second portion of the duodenum. The lesion was hypoechoic with ductal structure. Endosonographically, the lesion appeared to originate from within the submucosa (Layer 3). The lesion measured 7 mm (in maximum thickness). The lesion also measured 8 mm in diameter. The outer margins were well defined. Estimated Blood Loss: Estimated blood loss: none. Impression: EGD: - Normal esophagus. - Normal stomach. - Submucosal nodule found in the duodenum. Biopsied. EUS: - An intramural (subepithelial) lesion was found in the second portion of the duodenum. The lesion appeared to originate from within the submucosa (Layer 3). 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 Recommendation: - Await path results. - Advance diet as tolerated. - Return to endoscopist in 3 months depends of biopsy result. 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 Discussed options of treatment due to pt leaving for [place] on Sunday. SHe is agreeable to kenalog injection and then starting a steroid chio. Take medication as prescribed. STop meloxicam while taking the steroid, may resume when completed. Complete all doses of medication, even if sx are no longer present. Pt instructed to take medication with food. Informed pt that medication may make pt feel jittery, hungry and give you extra energy. Medication may also increase blood pressure and increase blood sugar. Pt also advised not to take NSAIDs while using steroids.RICE therapy. otc ibuprofen/tylenol prn for pain. ice/warm compresses as directed. immediate eval if warning symptoms of neurovascular compromise.Keep appt with Dr. Hong. otherwise follow up with PCP if new/worsening symptoms. pt verbalizes understanding and agrees c tx plan. Oct, Right hip pain (ICD-10 - M25.551) [employer] Other [facility] Encounter Date Diagnosis Assessment Notes Treatment Notes Treatment Clinical Notes Jun, Gastroesophageal reflux disease with esophagitis without hemorrhage (ICD-10 - K21.00) Diet instructions: Smaller portions, avoid eating and laying flat, avoid eating or drinking prior to bedtime. Weight loss. Pepcid bid and if heartburn continues, start PPI Jun, Primary hypertension (ICD-10 - I10) This patient is instructed to consume a healthy, low-fat, low-salt diet. They are also encouraged to continue exercise to achieve/maintain a normal BMI. Jun, West's esophagus without dysplasia (ICD-10 - K22.70) Pepcid or PPI daily. F/U GI for EGD surveillance Jun, Age-related osteoporosis without current pathological fracture (ICD-10 - M81.0) Ca, Vitamin D supplements. Exercise. Reclast vs Prolia discussed, unable to take oral bisphosphonates Jun, Irritable bowel syndrome with constipation (ICD-10 - K58.1) Jun, Primary osteoarthritis of right shoulder (ICD-10 - M19.011) ROM exercise, ice, heat and Tramadol. Jun, Obesity (BMI 30-39.9 ) (ICD-10 - E66.9) This patient has been instructed on a low-fat, high-fiber diet. They are instructed to reduce calories, portion sizes and snacks. It is recommended that they exercise for 30 minutes, 3-5 times weekly. [employer] Other 10-20-2022 Evaluation note* Encounter Date Diagnosis Assessment Notes Treatment Notes Treatment Clinical Notes Feb, Right ear impacted cerumen (ICD-10 - H61.21) Ear wax removal completed in office today. Recommend Debrox ear drops as directed in box to prevent future impaction as well as refraining from using Q-tips or other objects to clear out ears. Follow up with PCP or ENT if no improvement of symptoms or symptom return Feb, Allergic sinusitis (ICD-10 - J30.9) Today we are treating for allergic reaction. Recommend to take medication as prescribed and start oral steroid pack in the morning. Start all other medication today. Follow up with primary care provider to discuss reaction. [employer] Other Evaluation noteNo InformationNort[employer] Other Evaluation note* Diagnosis Onset Date Resolution Status Dysphagia acute [facility] Work Phone: Evaluation note* Diagnosis Polyp of stomach and duodenum documented in this encounter [facility] Work Phone: [facility] general Narrative - Reported* Type Description Date Medical History Hypertension Medical History Acid reflux Medical History Hiatal hernia Surgical History back surgery x3 Surgical History Neck Surgery Surgical History shoulder arthroscopy Surgical History hysterectomy Surgical History cholecystectomy Hospitalization History see above [employer] Other [facility] Narrative - Reported* Type Description Date Medical History Hypertension Medical History Acid reflux Medical History Hiatal hernia Surgical History back surgery x3 Surgical History Neck Surgery Surgical History shoulder arthroscopy Surgical History hysterectomy Surgical History cholecystectomy Surgical History EGD w/ bx and dilatation 09/2022 Hospitalization History see above [employer] [facility] Other [facility] general Narrative - Reported* Type Description Date Medical History Hypertension Medical History Acid reflux Medical History Hiatal hernia Surgical History back surgery x3 Surgical History Neck Surgery Surgical History shoulder arthroscopy Surgical History hysterectomy Surgical History cholecystectomy Surgical History EGD w/ bx and dilatation 09/2022 Surgical History Right shoulder arthroscopy 02/07 23 Hospitalization History see above [employer] [facility] Other [facility] general Narrative - Reported* Type Description Date Medical History Hypertension Medical History Acid reflux Medical History Hiatal hernia Surgical History back surgery x3 Surgical History Neck Surgery Surgical History shoulder arthroscopy Surgical History hysterectomy Surgical History cholecystectomy Surgical History EGD w/ bx and dilatation 09/2022 Surgical History Right shoulder arthroscopy 02/07 23 Surgical History Endoscopic US 11/2022 Hospitalization History see above [facility] Other Hospital Discharge instructions Additional Instructions DISCHARGE INSTRUCTIONS FOR ENDOSCOPY FOR ZHOU/EGD/ERCP/PEG: -Your throat may feel sore today from the scope that the doctor passed through your throat to visualize your stomach. Take a throat lozenge or suck on ice to ease the discomfort. -Do NOT smoke. -You may notice some streaks of blood in your sputum if the doctor has taken a biopsy. Notify the doctor if you cough up large amounts of blood. -Expect a gassy or full feeling after esophagoscopy. Report any persistent pain or vomiting. -Take it easy today. You need not stay in bed, but avoid strenuous activities such as jogging. FOR SEDATION FOR 24 HOURS: -NO driving -Do NOT operate machinery such as power tools, lawn mowers, snow blowers, sewing machines, etc. -Avoid alcoholic beverages and drugs for allergies, nerves, or sleep. -Do NOT stay alone. Do NOT leave your child unattended. -Do NOT make important personal or business decisions or sign any legal documents. -Eat solid foods and drink liquids in smaller amounts than usual until normal appetite returns. If you should experience an upset stomach, liquids high in sugar content (soda, Rigo-aid, non-acid juices) are recommended. -You can resume normal activities tomorrow. FOLLOW UP Please call the office and make a follow up appointment to see me in 6-8 weeks. Soft diet today. Resume normal diet tomorrow. -Notify the doctor if you have any problems. -[facility] number [phone] Phone: Summary Purpose Family History No Family History Records Found Relationship Condition Age at Onset Recorded Date/T ricardo father History of coronary artery bypass surgery Unknown Diabetes mellitus Unknown Dementia Unknown Not Specified Hypertension Unknown Myocardial infarction Unknown sister Diabetes mellitus Unknown Advance Directives No Advanced Directives Records Found Advance Directive Response Recorded Date/ Time Advance Directives No February 22, 2017 9:37am Chief Complaint and Reason for Visit Chief Complaint Gerd, West's Esop hagus Reason for Visit Dysphagia Additional Source Comments INFORMATION SOURCE (unrecogn ized section and content) DATE CREATED AUTHOR 11/08/2017 [facility] DATE CREATED AUTHOR AUTHOR'S ORGANIZ ATION 10/13/2018 [facility] DATE CREATED AUTHOR AUTHOR'S ORGANIZ ATION 07/21/2022 [facility] DATE CREATED AUTHOR AUTHOR'S ORGANIZ ATION 11/04/2022 [facility] DATE CREATED AUTHOR AUTHOR'S ORGANIZ ATION 12/21/2022 [facility] DATE CREATED AUTHOR AUTHOR'S ORGANIZ ATION 12/22/2022 [facility] DATE CREATED AUTHOR AUTHOR'S ORGANIZ ATION 06/12/2023 [facility] EPIC REASON FOR VISIT (unrecogniz ed section and content) Reason Comments Other EGD/EUS D49.0 [id number] Care Teams (unrecognized sec tion and content) Team Status: Active Member Role Status Dates Arnoldo Nixon DO Primary Care Provider Active Team Status: Inactive Member Role Status Dates Arnoldo Nixon DO Primary Care Provider Active Niurka Oliveira MD Attending Provider Active Splicer 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 This clinical summary was aggregated from multiple sources. Caution should be exercised in using it in the provision of clinical care. This summary normalizes information from multiple sources, and as a consequence, information in this document may materially change the coding, format and clinical context of patient data. In addition, data may be omitted in some cases. CLINICAL DECISIONS SHOULD BE BASED ON THE PRIMARY CLINICAL RECORDS. [employer] provides no warranty or guarantee of the accuracy or completeness of information in this document.
[2023-06-19 16:09] LABS: Age Gdln ACOG Testing Note (.); Pap IG (Image Guided) Note (.)
== END 2023-06-12 21:48 | disposition home or self-care (01) ==
LOC: LAB 21:47
PROVIDERS: PCP Internal Medicine; Visit Provider Obstetrics & Gynecology
DX: Z01.419 Encounter for gynecological examination (general) (routine) without abnormal findings (principal)
CPT/HCPCS: G0145

== ENCOUNTER 2023-08-03 10:35 | Outpatient (OUT) | payer MEDICARE, OTHER, SELFPAY ==
--- OUTSIDE RECORDS SUMMARY | 2023-08-03 10:46 | XMS_ITS | CCD ---
Author Name Unknown Address [address] [place] [address] Organization [facility] Care Team Providers Care Nurse Obgyn Name Role Phone PHYSICIAN, DEFAULT Unavailable Unavailable [...] Unavailable DO Arnoldo Nixon Primary Care Provider MD Niurka Oliveira Attending Provider [phone] Arnoldo Nixon Primary Care Unavailable Niurka Oliveira [...] Attending Unavailable APLING, JOHN B Referring Unavailable RODRIGUEZ, LYRIC Quigley Attending Unavailable APLING, JOHN B Referring Unavailable KELBLEY, IVONNE Attending Unavailable APLING, JOHN B Referring Unavailable KELBLEY, IVONNE Attending Unavailable APLING, JOHN B Referring Unavailable ALEXDELL Attending Unavailable APLING, JOHN B Attending Unavailable APLING, JOHN B Referring Unavailable RODRIGUEZ, LYRIC Quigley Attending Unavailable APLING, JOHN B Referring Unavailable SHERRIE, JIL Nagy Attending Unavailable APLING, JOHN B Referring Unavailable NIURKA, YSABEL Attending Unavailable APLING, JOHN B Referring Unavailable NIURKA, YSABEL Attending Unavailable APLING, JOHN B Referring Unavailable SHERRIE, JIL Nagy Attending Unavailable KELBLEY, IVONNE Attending Unavailable APLING, JOHN B Referring Unavailable APLING, JOHN B Attending Unavailable KELBLEY, IVONNE Attending Unavailable APLING, JOHN B Referring Unavailable KELBLEY, IVONNE Attending Unavailable APLING, JOHN B Referring Unavailable BLACKSTONAL Attending Unavailable APLING, JOHN B Referring Unavailable SHERRIE, JIL Nagy Attending Unavailable TATTERSALL, RACHELLE Attending Unavailable APLING, JOHN B Referring Unavailable SHERRIEJIL Referring Unavailable Allergies Allergy Classification Reported Allergen(s) Allergy Type Date of Onset Reaction(s) Facility (6 sources) Penicillin G Drug Allergy anaphylaxis [facility] Other (1 source) Penicillin Drug Allergy 01-23-20 15 [facility] Repository (2 sources) Adhesive Tape; Translations: [adhesive tape] Propensity to adverse reactions 02-24-20 17 Redness of Skin [facility] (3 sources) Penicillins; Translations: [Penicillins] Allergy to substance 02-24-20 17 Swelling of Lip/Tongue/Thr oat [facility] (6 sources) Adhesive Tape Drug allergy 04-19-20 16 Unknown [facility] Other (6 sources) Nitrofurantoin Drug Allergy Comment:Macrob id [facility] Other (6 sources) Sulfamethoxazole / Trimethoprim Drug Allergy Unknown [facility] Other (6 sources) tiZANidine Comfort Pac *MUSCULOSKELETAL THERAPY AG Propensity to adverse reactions Comment:Could not sleep/rest. [facility] Other (6 sources) Substance with penicillin structure and antibacterial mechanism of action (substance) Drug allergy 04-19-20 16 Unknown [facility] Other Medications Current Medications Medication Drug Class(es) Dates Sig (Normalized) Sig (Original) acetaminophen 325 mg / HYDROcodone bitartrate 5 mg oral tablet (10 sources) Opioid Agonist Start: 06-13-2023 take 1 tablet by mouth every twelve hours HYDROcodone-Aceta minophen 5-325 MG 1 tablet as needed Orally bid for 30 days May, Active Start: 05-03-2023 take 1 tablet by romulo th once at bedtime as needed HYDROcodone-Acetaminophen 5-325 MG 1 tablet as needed Orally q HS for 30 days Apr, Active Start: 01-04-2023 take 1 tablet by romulo th every six hours as needed for pain HYDROcodone-Acetaminophen 5-325 MG 1 tablet as needed Orally every 6 hrs as [...] day Not-Taking/PRN biotin 1 mg oral tablet (7 sources) Start: 04-08-2018 take 1 mg by mouth once daily Biotin Active 1 MG PO Daily April 08, 2018 1:00am Start: 02-23-2017 End: 08-24-2017 take 3 tablets by mouth once daily Biotin Discontinued 3 TAB PO Daily February 23, 2017 12:00am August 24, 2017 7:39am take 1 tablet by romulo every twenty-four hours Biotin Maximum Strength 53515 MCG 1 tablet Orally Once a day PRN Active take 1 tablet by romulo th every twenty-four hours Biotin Maximum Strength 97781 MCG 1 tablet Orally Once a day PRN Active Biotin Maximum Strength 13937 MCG (7 sources) take 1 tablet by romulo th once daily as needed Biotin Maximum Strength 46249 MCG 1 tablet Orally Once a day PRN Active take 1 tablet by mouth once gayla y Biotin Maximum Strength 83001 MCG 1 tablet Orally Once a day [...] 2022 12:00am dimenhyDRINATE 50 mg oral tablet (8 sources) take 1 tablet by mouth every six hours Dramamine 50 MG 1 tablet as needed Orally every 6 hrs Active hydroCHLOROthiazide 25 mg oral tablet (4 sources) Thiazide Diuretic Start: 09-28-2022 take 25 mg by mouth once daily Hydrochlorothiazide Active 25 MG PO Daily September 28, 2022 12:00am inulin 2000 mg chewable tablet (1 source) Start: 09-28-2022 take 1 tablet by mouth once daily Inulin (Fiber Gummies) 2 gram Tablet,Chewable Active 1 GM PO Daily September 28, 2022 12:00am meloxicam 15 mg oral tablet (10 sources) Nonsteroidal Anti-inflammator y Drug Start: 02-23-2017 take 15 mg by mouth once daily Meloxicam Active 15 MG PO Daily February 23, 2017 12:00am omeprazole 20 mg delayed release oral capsule (14 sources) Proton Pump Inhibitor Start: 08-24-2017 End: 04-08-2018 take 20 mg by mouth once daily Omeprazole Active 20 MG PO Daily April 08, 2018 1:00am Omeprazole 40 MG TAKE 1 CAPSULE BY MOUTH 30 MINUTES BEFORE MORNING MEAL EVERY DAY FOR 30 DAYS Orally Once a day for 90 days Active potassium chloride 10 meq extended release oral capsule (2 sources) Start: 05-17-2023 take 1 capsule by mouth every twenty-four hours Potassium Chloride ER 10 MEQ 1 capsule with food Orally Once a day for 30 days Apr, Active predniSONE 20 mg oral tablet (1 source) Start: 06-13-2023 predniSONE 20 MG 1 tablet Orally bid w/ food x 5 days then qd w/ food x 5 days for 10 days May, Active traMADol hydrochloride 50 mg oral tablet [...] Active triamcinolone acetonide 0.005 mg/mg topical ointment (12 sources) Corticosteroid Start: 03-08-2023 Triamcinolone Acetonide 0.5 % 1 application Externally Twice a day for 30 days Feb, Active Start: 11-01-2022 Kenalog-40 Oct, 40 mg 100 ml zoledronic acid 0.05 mg/ml injection (3 sources) Bisphosphonate Start: 05-03-2023 Reclast 5 MG/1 [...] / neomycin 3.5 mg/ml / polymyxin b 38938 unt/ml otic solution (12 sources) Aminoglycoside Antibacterial, Polymyxin-class Antibacterial, Corticosteroid Start: 03-09-2022 Bpzwpyns-Ysvboezvi-EZ 3.5-57986-9 4 drops into affected ear Otic Three times a day for 7 day(s) Feb, Not-Taking/PRN Magnesium (1 source) Start: 04-08-2018 End: 10-21-2018 take 250 mg by mouth once daily Magnesium Discontinued 250 MG PO Daily April 08, 2018 1:00am October 21, 2018 8:46am Meclizine (12 sources) Antiemetic Meclizine HCl HI N Not-Taking/PRN Meclizine HCl HI N Not-Taking Meclizine HCl HI N Active methylPREDNISolone 4 mg oral tablet (20 sources) Corticosteroid Start: 03-09-2022 methylPREDNISolone 4 MG as directed Orally daily for 6 days Oct, Not-Taking/PRN Multivitamin With Minerals (Hair,Skin And Nails) Tablet (1 source) Start: 08-24-2017 End: 10-21-2018 take 1 tablet by mouth once daily Multivitamin With Minerals (Hair,Skin And Nails) Tablet Discontinued 1 TAB PO Daily August 24, 2017 12:00am October 21, 2018 8:46am [place] 8-Eay-Ckd-Fish Oil (Fish Oil) 1,000 mg (120 mg-180 mg) Capsule (1 source) Start: 02-23-2017 End: 08-24-2017 take 1 capsule by mouth once daily [place] 4-Wnq-Rzk-Fish Oil (Fish Oil) 1,000 mg (120 mg-180 mg) Capsule Discontinued 1 CAP PO Daily February 23, 2017 12:00am August 24, 2017 7:39am [place] Red (1 source) Start: 04-02-2018 End: 09-28-2022 take 1 tablet by mouth once daily [place] Red Discontinued 1 TAB PO Daily April 02, 2018 1:00am September 28, 2022 7:45am paxlovid (300/100) 20 x 150 mg & 10 x 100mg tablet therapy pack (3 sources) Start: 09-06-2022 take 3 tablets by [...] reflux disease without esophagitis] Chronic Essential hypertension (17 sources) Essential hypertension; Translations: [Essential (primary) hypertension] Onset: 2 Chronic Gastritis and duodenitis (12 sources) Atrophic gastritis; Translations: [Unspecified chronic gastritis without bleeding] Chronic Immunizations and screening for infectious disease (1 source) Encounter for screening for human papillomavirus (HPV); Translations: [ENC SCREENING HUMAN PAPILLOMAVIRUS] Onset: 3 Episodic Neoplasms of unspecified nature or uncertain behavior (1 source) Submucosal tumor of duodenum; Translations: [Neoplasm of unspecified nature of digestive system] Episodic Nutritional deficiencies (2 sources) Vitamin D deficiency; Translations: [Vitamin D deficiency, unspecified] Chronic Osteoarthritis (14 sources) Osteoarthritis of joint of right shoulder region; Translations: [Primary osteoarthritis, right shoulder] Chronic Osteoporosis (14 sources) Senile osteoporosis; Translations: [Age-related osteoporosis without current pathological fracture] Onset: 3 Chronic Other and unspecified benign neoplasm (8 sources) Benign neoplasm of stomach; Translations: [Polyp of stomach and duodenum] Episodic Other and unspecified benign neoplasm (2 sources) Polyp of stomach and duodenum; Translations: [Polyp of stomach and duodenum] Onset: 3 Episodic Other and unspecified benign neoplasm (1 source) Mass of digestive structure; Translations: [Polyp of stomach and duodenum] 12-21-2022 Episodic Other connective tissue disease (6 sources) Fibromyalgia; Translations: [Fibromyalgia] Episodic Other connective tissue disease (1 source) Unspecified disorder of synovium and tendon, unspecified site Episodic Other ear and sense organ disorders (1 source) Impacted cerumen, right ear Episodic Other gastrointestinal disorders (11 sources) Irritable bowel syndrome characterized by constipation; [...] dermatitis, unspecified Episodic Other nervous system disorders (8 sources) Chronic pain; Translations: [Other chronic pain] Chronic Other nervous system disorders (1 source) Other chronic pain Chronic Other non-traumatic joint disorders (1 source) Pain in right shoulder Episodic Other non-traumatic joint disorders (3 sources) Pain in right hip Episodic Other nutritional; endocrine; and metabolic disorders (12 sources) Obese class I; Translations: [Body mass index (BMI) 34.0-34.9, adult] Chronic Other nutritional; endocrine; and metabolic disorders (19 sources) Body mass index 30+ - obesity; Translations: [Obesity, unspecified] Chronic Other nutritional; endocrine; and metabolic disorders (1 source) Obesity, unspecified Chronic Other nutritional; endocrine; and metabolic disorders (8 sources) Severe obesity; Translations: [Morbid (severe) obesity [...] Allergic rhinitis, unspecified Chronic Residual codes; unclassified (12 sources) Family history of cancer of colon; Translations: [Family history of malignant neoplasm of digestive organs] Episodic Residual codes; unclassified (1 source) Asymptomatic menopausal state; Translations: [ASYMPTOMATIC MENOPAUSAL STATE] Onset: 3 Episodic Residual codes; unclassified (1 source) Edema of left lower limb; Translations: [Localized edema] 08-24-2017 Episodic Rheumatoid arthritis and related disease (2 sources) Inflammatory polyarthropathy; Translations: [Inflammatory polyarthropathy] Chronic Spondylosis; intervertebral disc disorders; other back problems (15 sources) Lumbar spondylosis; Translations: [Spondylosis without myelopathy [...] Test Name Value Interpretation Reference Range Facility MR LUMBAR SPINE W AND WO CON TRASTon 07-26-2023 MR LUMBAR SPINE W AND WO CONTRAST EXAMINATION: MR LUMBAR SPINE W AND WO CONTRAST HISTORY: Low back pain. History of prior lumbar surgeries. TECHNIQUE: Routine lumbosacral spine MR protocol without and with intravenous gadolinium. CONTRAST: 20 mL intravenous ProHance. COMPARISON: None. RESULT: Counting reference: Lumbosacral junction. For the purposes of this report, there is transitional lumbosacral anatomy with the last well-formed disc space considered L5-S1 with partial sacralization of L5, with L1 considered the first nonrib-bearing vertebral body. Alignment: Alignment is anatomic. Bone marrow signal: No evidence for recent fracture. No pathologic marrow infiltration. No suspicious enhancement after contrast. Posterior decompression with bilateral malina and pedicle screw fixation at L4-L5. Few small Schmorl's nodes. Conus: The conus is within normal limits of signal intensity and morphology. Paraspinal soft tissues: Partially imaged T2 hyperintense benign-appearing renal cysts. Colonic diverticulosis. Lower thoracic spine: Visualized lower thoracic canal and foramina without significant narrowing. T12-L1: No significant canal or foraminal narrowing. L1-L2: Tiny disc bulge. Facet degenerative changes. No significant canal or foraminal narrowing. L2-L3: Broad-based disc bulge. Endplate osteophytes. Facet degenerative changes. Ligamentous hypertrophy. Mild canal narrowing without significant foraminal narrowing. L3-L4: Broad-based disc bulge. Endplate osteophytes. Facet degenerative changes. Ligamentous hypertrophy. Mild canal narrowing without significant foraminal narrowing. L4-L5: Postsurgical changes without high-grade canal or foraminal narrowing within limits of artifact from hardware. L5-S1: No significant canal or foraminal narrowing. Sacrum and iliac wings: The visualized sacrum and iliac wings are within normal limits. IMPRESSION: Transitional lumbosacral anatomy and counting reference as discussed. Postsurgical and degenerative changes of the lumbar spine as discussed. ELECTRONICALLY SIGNED BY: Al Weinstein MD Normal Not Available SURGICAL PATHOLOGY RESULTSon 12-20-2022 Pathology Report Name LIZZY WELSH Pathologist: ANNY CHU MD Date of Procedure: 12/12/2022 Date Received: 12/12/2022 Date Reported 12/20/2022 Submitting Physician: MARIANNE LI MD Location: [facility] Other External # FINAL DIAGNOSIS A. DUODENAL POLYP, BIOPSY: -- SMALL INTESTINAL MUCOSA DEMONSTRATING DILATED LYMPHATIC VESSELS, NO DYSPLASIA IDENTIFIED. Note: Multiple deeper levels were examined. Electronically Signed Out By ANNY CHU MD/[facility] By the signature on this report, the individual or group listed as making the Final Interpretation/Diagnosi s certifies that they have reviewed this case. Diagnostic interpretation performed at [facility] [address] [facility]. [facility] [address] Clinical History: Physician Contact Number: [phone] Ischemic Time (A): 09:35 Fixative (A): Formalin [...] in toto in one cassette. MRS valladares/12/13/2022 [facility] Department of Pathology [address] [place] [address] Endoscopic Ultrasound (Upper )on 12-12-2022 Marianne Li MD - 02/01/2023 Patient Name: Lizzy Welsh Procedure Date: 12/12/2022 9:15 AM Date of : 1950 Admit Type: Outpatient Site: [facility] 1 Ethnicity: Not or Race: White Attending MD: Marianne Li MD, [id number] Procedure: Upper EUS Indications: Duodenal mucosal mass/polyp found on endoscopy, 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 extrinsic compression Patient Profile: This is a 72 year old female. Refer to note in patient chart for documentation of history and physical. Providers: Marianne Li MD (Doctor), Sara Castillo RN (Nurse), Maciel Ferrer, Housekeeping Coordinator Referring: Marianne iL MD Medicines: See the Anesthesia note for [...] biopsy result. 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 All rights reserved. The codes documented in this report are preliminary and upon surgical coder review may be revised to meet current compliance requirements. Attending Participation: I personally performed the entire procedure. MD Marianne Enamorado MD 12/12/2022 9:49:01 AM This report has been signed electronically. Number of Addenda: 0 Note Initiated On: 12/12/2022 9:15 AM Total Procedure Duration Time 0 hours 21 minutes 39 seconds [facility] Work Phone: Radiology Study observation (narrative) [facility] Work Phone: Endoscopic Ultrasound (Upper )Ordered By: Marianne Li on 12-12-2022 [facility] Work Phone: No Panel Informationon 12-12 [facility] [address] DO Work Phone: [email or web address] spx?={[email or web address]} [facility] [address] DO Work Phone: [facility] 219 DO Work Phone: Order Reconciliationon 12-12 [...] day gummy Tums 750 mg daily Normal [facility] Surgical Pathology Depar tmenton 12-12-2022 [facility] Surgical Pathology Department Name LIZZY WELSH Pathologist: ANNY CHU MD Date of Procedure: 12/12/2022 Date Received: 12/12/2022 Date Reported 12/20/2022 Submitting Physician: MARIANNE LI MD Location: [facility] Other External # FINAL DIAGNOSIS A. DUODENAL POLYP, BIOPSY: -- SMALL INTESTINAL MUCOSA DEMONSTRATING DILATED LYMPHATIC VESSELS, NO DYSPLASIA IDENTIFIED. Note: Multiple deeper levels were examined. Electronically Signed Out By ANNY CHU MD/[facility] By the signature on this report, the individual or group listed as making the Final Interpretation/Diagnosi s certifies that they have reviewed this case. Diagnostic interpretation performed at [facility] [address] [facility] [address] Clinical History: Physician Contact Number: [phone] Ischemic Time (A): 09:35 Fixative (A): Formalin [...] in toto in one cassette. MRS valladares/12/13/2022 [facility] Department of Pathology [id number] [place] [address] Comment on above: Performed By: #### U [facility] #### [facility] Surgical Pathology Department [address] [place], [place] [id number] Upper EUSon 12-12-2022 Upper EUS PATIENTNAME Patient Name: Lizzy Welsh EXAMDATE Procedure Date: 12/12/2022 9:15 AM PATIENTID PATIENTACCOUNTNUM PATIENTDOB Date of : 1950 ADMITTYPE Admit Type: Outpatient PATIENTROOM Site: [facility] 1 ETHNICITY Ethnicity: Not or RACE Race: White PROVDR Attending MD: Marianne Li MD, [id number] ENDOPROCEDURENAME Procedure: Upper EUS INDICATION Indications: Duodenal mucosal mass/polyp found on endoscopy, 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 Refer to note in patient chart for documentation of history and physical. PRIMARYPROVIDER Providers: Marianne Li MD (Doctor), Sara Castillo RN (Nurse), Maciel Ferrer, Housekeeping Coordinator EDREFPROVIDER Referring: Marianne Li MD CURRENT_MEDS Medicines: [...] result. 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 All rights reserved. The codes documented in this report are preliminary and upon surgical coder review may be revised to meet current compliance requirements. ATTDRPART Attending Participation: I personally performed the entire procedure. SIGNATURENAME MD Marianne Enamorado MD SIGNATUREDATE 12/12/2022 9:49:01 AM SIGNATUREONFILEIND This report has been signed electronically. NUMADDENDA Number of Addenda: 0 INITIATEDON Note Initiated On: 12/12/2022 9:15 AM TOTPROCTIME Total Procedure Duration Time 0 hours 21 minutes 39 seconds Normal [facility] 09-28-2022 L --- Specimen: [id number] Received: 09/28/22 Status: SALVADOR Enrique Num: [id number] Spec Type: Surgical Subm Dr: Niurka Oliveira MD Tissues: A Duodenum - Biopsy (DUODENUM BX) B Esophagus Biopsy (ESOPHABEAL BX) Procedures: HE/4, Gross/Micro L4/2 Age/ Patient Sex Location Account Attending Physician Lizzy Welsh 72/F [id number] Niurka Oliveira MD SPEC NUM: [id number] RECD: 09/28/22 STATUS: SALVADOR ENRIQUE NUM: [id number] ELVA: 09/28/22- [facility] DR: Niurka Oliveira MD ENTERED: 09/28/[address] [facility] [address]: IDA TYPE: Surgical DEPT: S ORDERED: [...] submitted in one cassette labeled C1. Specimen: [id number] Received: 09/28/22 Status: SALVADOR Enrique Num: [id number] Spec Type: Surgical Subm Dr: Niurka Oliveira MD Tissues: A Duodenum - Biopsy (DUODENUM BX) B Esophagus Biopsy (ESOPHABEAL BX) Procedures: YUAN/Philip, Gross/Micro L4/2 Patient: Lizzy Welsh [id number] (Continued) Signed (signature on file) Baylee Newton MD 09/29/22 100[address] [facility] ZAK - TSHon 07-19-2022 TSH 1.271 uIU/mL Normal 0.358-3.740 [facility] Comment on above: Performed By: #### D ATTSH #### [facility] [address] [address] [address] Gertrudis Peres TSH RANGE SEE BELOW Normal [facility] Comment on above: Result Comment: <0.3 4 UIU/ml HYPERTHYROID 0.34-5.60 UIU/ml EUTHYROID >5.60 UIU/ml HYPOTHYROID Performed By: #### D ATTSH #### [facility] [address] [address] [address] Gertrudis Peres ZAK - VITAMIN Don 07-19-2022 VIT D 25-OH 26.5 ng/mL Normal [facility] Comment on above: Performed By: #### D ATVITD #### [facility] [address] [address] [address] Gertrudis Peres VIT D RANGES SEE BELOW Normal [facility] Comment on above: Result Comment: <20 ng/mL Vit D deficient 20 - <30 ng/mL Vit D insufficient 30 - 100 ng/mL Vit D sufficient >100 ng/mL Potential Toxicity Performed By: #### D ATVITD #### [facility] [address] [place] [address] Dr. Gertrudis Peres MG MAMM SCREEN 3D MANDY CADon 06-13-2022 MG MAMM SCREEN 3D MANDY CAD Patient: LIZZY WELSH Exam Date: 06/13/2022 : 1950 Gender:F Ordering : DR MCKINLEY ALFARO D.O. Admission #: [id number] Family : Order #: [id number] CLICK HERE TO VIEW EXAM RADIOLOGY REPORT [...] Treatments None Family Cancers None LOCATION: [facility] BREAST COMPOSITION: Scattered areas fibroglandular density. [...] Rose M.D. on 06/14/2022 at 11:22 Normal [facility] XR DEXA BONE DENSITYon 06-13 XR DEXA [...] authenticated by: DENNY ROSE Date: 2022-06-13 14:55 [facility] PAP ACOG PANEL 2: 30 to 65on 06-10-2022 . . Normal [facility] Comment on above: Performed By: #### [id number] #### [facility] [address] [address] [address] Gertrudis Peres Age Gdln ACOG Testing Comment Normal [facility] Comment on above: Result Comment: <21 or >65 or no age provided Performed By: #### 4 [id number] #### [facility] [address] [address] [address] Gertrudis Peres DIAGNOSIS: Comment [facility] Comment on above: Result Comment: NEGA TIVE FOR INTRAEPITHELIAL LESION OR MALIGNANCY. Performed By: #### 4 [id number] #### [facility] [address] [place] [address] Dr. Gertrudis Peres Methodology: Comment Normal [facility] Comment on above: Result Comment: This liquid based ThinPrep(R) pap test was screened with the use of an image guided system. Performed By: #### 4 [id number] #### [facility] [address] [address] [address] Gertrudis Peres Note: Comment Normal [facility] Comment on above: Result Comment: The Pap smear is a screening test designed to aid in the detection of premalignant and malignant conditions of the uterine cervix. It is not a diagnostic procedure and should not be used as the sole means of detecting cervical cancer. Both false-positive and false-negative reports do occur. . Performed By: #### [id number] #### [facility] [address] [place] [address] Dr. Gertrudis Peres Performed by: Comment Normal [facility] Comment on above: Result Comment: [employer] Shipman Investigator Vice (ASCP) Performed By: #### [id number] #### [facility] [address] [place] [address] Dr. Gertrudis Peres Specimen adequacy: Comment Normal [facility] Comment on above: Result Comment: Sati sfactory for evaluation. Endocervical and/or squamous metaplastic cells (endocervical component) are present. Performed By: #### [id number] #### [facility] [address] [place] [address] Dr. Gertrudis Peres XR HIPS MANDY 5V [...] NICANOR NAQVI Date: 2022-05-03 16:34 Normal [facility] CBC AUTO DIFFon 03-31-2022 BASO # 0.0 103/ul Normal 0.0-0.1 [facility] Comment on above: Performed By: #### C BC #### [facility] [address] [place] [address] Dr. Gertrudis Peres Basophils/100 WBC (Bld) 0.5 % Normal 0.2-2.0 [facility] Comment on above: Performed By: #### C BC #### [facility] [address] [place] [address] Dr. Gertrudis Peres EO # 0.3 103/ul Normal 0.0-0.7 [facility] Comment on above: Performed By: #### C BC #### [facility] [address] [place] [address] Dr. Gertrudis Peres Eosinophils/100 WBC (Bld) 4.3 % Normal 0.9-7.0 [facility] Comment on above: Performed By: #### C BC #### [facility] [address] [place] [address] Dr. Gertrudis Peres Erythrocyte distribution width (RBC) [Ratio] 13.2 % Normal 11.0-15.0 [facility] Comment on above: Performed By: #### C BC #### [facility] [address] [place] [address] Dr. Gertrudis Peres Hematocrit (Bld) [Volume fraction] 37.9 % Normal 36.0-48.0 [facility] Comment on above: Performed By: #### C BC #### [facility] [address] [place] [address] Dr. Gertrudis Peres Hemoglobin (Bld) [Mass/Vol] 12.7 g/dL Normal 12.0-16.0 [facility] Comment on above: Performed By: #### C BC #### [facility] [address] [place] [address] Dr. Gertrudis Peres IG # 0.02 10e3/ul Normal 0.00-0.03 [facility] Comment on above: Performed By: #### C BC #### [facility] [address] [place] [address] Dr. Gertrudis Peres IG % 0.3 % Normal 0.0-0.5 [facility] Comment on above: Performed By: #### C BC #### [facility] [address] [place] [address] Dr. Gertrudis Peres LYMPH # 1.7 103/ul Normal 1.2-3.8 [facility] Comment on above: Performed By: #### C BC #### [facility] [address] [place] [address] Dr. Gertrudis Peres Lymphocytes/100 WBC (Bld) 26.4 % Normal 20.5-60.0 [facility] Comment on above: Performed By: #### C BC #### [facility] [address] [place] [address] Dr. Gertrudis Peres MANUAL DIFF REQ NO Normal [facility] Comment on above: Performed By: #### C BC #### [facility] [address] [place] [address] Dr. Gertrudis Peres MCH (RBC) [Entitic mass] 28.6 pg Normal 26.7-34.0 [facility] Comment on above: Performed By: #### C BC #### [facility] [address] [place] [address] Dr. Gertrudis Peres MCHC (RBC) [Mass/Vol] 33.5 g/dL Normal 29.9-35.2 [facility] Comment on above: Performed By: #### C BC #### [facility] [address] [place] [address] Dr. Gertrudis Peres MCV (RBC) [Entitic vol] 85.4 fL Normal 81.0-99.0 [facility] Comment on above: Performed By: #### C BC #### [facility] [address] [place] [address] Dr. Gertrudis Peres MONO # 0.5 103/ul Normal 0.3-0.8 [facility] Comment on above: Performed By: #### C BC #### [facility] [address] [place] [address] Dr. Gertrudis Peres Monocytes/100 WBC (Bld) 8.1 % Normal 1.7-12.0 [facility] Comment on above: Performed By: #### C BC #### [facility] [address] [place] [address] Dr. Gertrudis Peres NEUT # 3.9 103/ul Normal 1.4-6.5 [facility] Comment on above: Performed By: #### C BC #### [facility] [address] [place] [address] Dr. Gertrudis Peres Neutrophils/100 WBC (Bld) 60.4 % Normal 43.0-75.0 [facility] Comment on above: Performed By: #### C BC #### [facility] [address] [place] [address] Dr. Gertrudis Peres Platelet mean volume (Bld) [Entitic vol] 11.3 fL Normal 9.5-13.5 [facility] Comment on above: Performed By: #### C BC #### [facility] [address] [place] [address] Dr. Gertrudis Peres PLT 215 103/ul Normal 150-450 [facility] Comment on above: Performed By: #### C BC #### [facility] [address] [place] [address] Dr. Gertrudis Peres RBC 4.44 106/ul Normal 4.20-5.40 [facility] Comment on above: Performed By: #### C BC #### [facility] [address] [place] [address] Dr. Gertrudis Peres WBC 6.5 103/ul Normal 4.0-11.0 [facility] Comment on above: Performed By: #### C BC #### [facility] [address] [address] [address] Gertrudis Peres PROF 14(COMP METB)on 022 Albumin [Mass/Vol] 3.7 g/dL Normal 3.4-5.0 [facility] Comment on above: Performed By: #### C MP #### [facility] [address] [place] [address] Dr. Gertrudis Peres Albumin/Globulin [Mass ratio] 1.1 {ratio} Normal [facility] Comment on above: Performed By: #### C MP #### [facility] [address] [place] [address] Dr. Gertrudis Peres ALP [Catalytic activity/Vol] 112 U/L Normal 46-116 [facility] Comment on above: Performed By: #### C MP #### [facility] [address] [place] [address] Dr. Gertrudis Peres ALT [Catalytic activity/Vol] 23 U/L Normal 14-59 [facility] Comment on above: Performed By: #### C MP #### [facility] [address] [place] [address] Dr. Gertrudis Peres Anion gap [Moles/Vol] 7.1 mmol/L Normal [facility] Comment on above: Performed By: #### C MP #### [facility] [address] [place] [address] Dr. Gertrudis Peres AST [Catalytic activity/Vol] 18 U/L Normal 15-37 [facility] Comment on above: Performed By: #### C MP #### [facility] [address] [place] [address] Dr. Gertrudis Peres Bilirubin [Mass/Vol] 0.4 mg/dL Normal 0.2-1.0 [facility] Comment on above: Performed By: #### C MP #### [facility] [address] [place] [address] Dr. Gertrudis Peres Calcium [Mass/Vol] 8.6 mg/dL Normal 8.5-10.1 [facility] Comment on above: Performed By: #### C MP #### [facility] [address] [address] [address] Gertrudis Peres Chloride [Moles/Vol] 105 mmol/L Normal 98-107 [facility] Comment on above: Performed By: #### C MP #### [facility] [address] [address] [address] Gertrudis Peres CO2 [Moles/Vol] 34.0 mmol/L Critically high 21.0-32.0 [facility] Comment on above: Performed By: #### C MP #### [facility] [address] [address] [address] Gertrudis Peres Creatinine [Mass/Vol] 0.80 mg/dL Normal 0.55-1.02 [facility] Comment on above: Performed By: #### C MP #### [facility] [address] [place] [address] Dr. Gertrudis Peres EGFR-AF NIGERIEN >60 Normal >=60 [facility] Comment on above: Performed By: #### C MP #### [facility] [address] [place] [address] Dr. Gertrudis Peres EGFR-NON AF NIGERIEN >60 Normal >=60 [facility] Comment on above: Performed By: #### C MP #### [facility] [address] [place] [address] Dr. Gertrudis Peres Globulin (S) [Mass/Vol] 3.5 g/dL Normal [facility] Comment on above: Performed By: #### C MP #### [facility] [address] [place] [address] Dr. Gertrudis Peres Glucose [Mass/Vol] 119 mg/dL Critically high 74-106 [facility] Comment on above: Performed By: #### C MP #### [facility] [address] [place] [address] Dr. Gertrudis Peres Potassium [Moles/Vol] 3.1 mmol/L Critically low 3.5-5.1 [facility] Comment on above: Performed By: #### C MP #### [facility] [address] [place] [address] Dr. Gertrudis Peres Protein [Mass/Vol] 7.2 g/dL Normal 6.4-8.2 [facility] Comment on above: Performed By: #### C MP #### [facility] [address] [address] [address] Gertrudis Peres Sodium [Moles/Vol] 143 mmol/L Normal 136-145 [facility] Comment on above: Performed By: #### C MP #### [facility] [address] [address] [address] Gertrudis Peres Urea nitrogen [Mass/Vol] 24.0 mg/dL Critically high 7.0-18.0 [facility] Comment on above: Performed By: #### C MP #### [facility] [address] [address] [address] Gertrudis Peres Urea nitrogen/Creatinine [Mass ratio] 30.0 mg/mg Normal [facility] Comment on above: Performed By: #### C MP #### [facility] [address] [address] [address] Gertrudis Peres US SINGLE QUAD UMBILon [...] DENNY ROSE Date: 2021-09-29 14:52 Normal [facility] CBC with Diffon 10-04-2018 Abs. Basophil 0.05 k/uL Normal 0.00-0.20 [facility] Comment on above: Performed By: #### C MPX, CDP #### [facility] [address] [place] [address] Auto Hiker: Peter Conklin MD Abs.Imm.Granulocyte <0.03 Normal 0.00-0.30 [facility] Comment on above: Performed By: #### C MPX, CDP #### [facility] [address] [place] [id number] Auto Hiker: Peter Conklin MD Abs.Neutrophil (Seg) 4.64 k/uL Normal 1.50-8.10 [facility] Comment on above: Performed By: #### C MPX, CDP #### [facility] [address] [place] [address] Auto Hiker: Peter Conklin MD Basophils/100 WBC (Bld) 1 % Normal 0-2 [facility] Comment on above: Performed By: #### C MPX, CDP #### [facility] [address] [place] [address] Auto Hiker: Peter Conklin MD Eosinophils #/vol (Bld) 0.35 10*3/uL Normal 0.00-0.44 [facility] Comment on above: Performed By: #### C MPX, CDP #### [address] [place], [facility] Auto Hiker: Peter Conklin MD Eosinophils/100 WBC (Bld) 4 % Normal 1-4 [facility] Comment on above: Performed By: #### C MPX, CDP #### [facility] [address] [place], [facility] Auto Hiker: Peter Conklin MD Erythrocyte distribution width Ratio (RBC) 13.8 % Normal 11.8-14.4 [facility] Comment on above: Performed By: #### C MPX, CDP #### [facility] [address] [place], [place] [id number] Auto Hiker: Peter Conklin MD Hematocrit Volume Fraction (Bld) 44.8 % Normal 36.3-47.1 [facility] Comment on above: Performed By: #### C MPX, CDP #### [facility] [address] [place], [place] [id number] Auto Hiker: Peter Conklin MD Hemoglobin mass conc (Bld) 14.1 g/dL Normal 11.9-15.1 [facility] Comment on above: Performed By: #### C MPX, CDP #### [facility] [address] [place], [place] [id number] Auto Hiker: Peter Conklin MD Immature granulocytes #/vol (Bld) 0 % Normal 0 [facility] Comment on above: Performed By: #### C MPX, CDP #### [facility] [address] [place], [place] [id number] Auto Hiker: Peter Conklin MD Lymphocytes #/vol (Bld) 2.23 10*3/uL Normal 1.10-3.70 [facility] Comment on above: Performed By: #### C MPX, CDP #### [facility] [address] [place], [place] [id number] Auto Hiker: Peter Conklin MD Lymphocytes/100 WBC (Bld) 27 % Normal 24-43 [facility] Comment on above: Performed By: #### C MPX, CDP #### [facility] [address] [place], [place] [id number] Auto Hiker: Peter Conklin MD MCH Entitic mass (RBC) 27.8 pg Normal 25.2-33.5 [facility] Comment on above: Performed By: #### C MPX, CDP #### [facility] [address] [place], [place] [phone] Auto Hiker: Peter Conklin MD MCHC mass conc (RBC) 31.5 g/dL Normal 28.4-34.8 [facility] Comment on above: Performed By: #### C MPX, CDP #### [facility] [address] [place], [facility] Auto Hiker: Peter Conklin MD MCV Entitic volume (RBC) 88.4 fL Normal 82.6-102.9 [facility] Comment on above: Performed By: #### C MPX, CDP #### [facility] [address] [place], [place] [id number] Auto Hiker: Peter Conklin MD Monocytes #/vol (Bld) 0.84 10*3/uL Normal 0.10-1.20 [facility] Comment on above: Performed By: #### C MPX, CDP #### [facility] [address] [place], [facility] Auto Hiker: Peter Conklin MD Monocytes/100 WBC (Bld) 10 % Normal 3-12 [facility] Comment on above: Performed By: #### C MPX, CDP #### [facility] [address] [place], [facility] Auto Hiker: Peter Conklin MD Neutrophil (Seg) 58 % Normal 36-65 [facility] Comment on above: Performed By: #### C MPX, CDP #### [facility] [address] [place], [place] [id number] Auto Hiker: Peter Conklin MD NRBC Automated 0.0 per 100 WBC Normal 0.0 [facility] Comment on above: Performed By: #### C MPX, CDP #### [facility] [address] [place], [facility] Auto Hiker: Peter Conklin MD Platelet mean volume Entitic volume (Bld) 11.7 fL Normal 8.1-13.5 [facility] Comment on above: Performed By: #### C MPX, CDP #### [facility] [address] [place] [address] Auto Hiker: Peter Conklin MD Platelets #/vol (Bld) 269 10*3/uL Normal 138-453 [facility] Comment on above: Performed By: #### C MPX, CDP #### [facility] [address] [place] [address] Auto Hiker: Peter Conklin MD RBC #/vol (Bld) 5.07 10*6/uL Normal 3.95-5.11 [facility] Comment on above: Performed By: #### C MPX, CDP #### [facility] [address] [place], [place] [id number] Auto Hiker: Peter Conklin MD WBC #/vol (Bld) 8.1 10*3/uL Normal 3.5-11.3 [facility] Comment on above: Performed By: #### C MPX, CDP #### [facility] [address] [place], [place] [address] Auto Hiker: Peter Conklin MD Auto Diff Performed NOT REPORTED Normal [facility] Comment on above: Performed By: #### C MPX, CDP #### [facility] [address] [place] [address] Auto Hiker: Peter Conklin MD Platelets #/vol (Bld) NOT REPORTED Normal [facility] Comment on above: Performed By: #### C MPX, CDP #### [facility] [address] [place], [place] [phone] Auto Hiker: Peter Conklin MD RBC morphology finding Nom (Bld) NOT REPORTED Normal [facility] Comment on above: Performed By: #### C MPX, CDP #### [facility] [address] [place], [place] [id number] Auto Hiker: Peter Conklin MD WBC Morphology NOT REPORTED Normal [facility] Comment on above: Performed By: #### C MPX, CDP #### [facility] [address] [place], [place] [id number] Auto Hiker: Peter Conklin MD CT ABDOMEN PELVIS WO [...] Sushant Dobbs MD 10/04/18 Final result Normal [facility] Comp Metabolic Pr/rfx MGon 0 10-04-2018 (cont.) Normal [facility] Comment on above: Result Comment: Aver age GFR for 60-69 years old: 85 mL/min/1.73sq m Chronic Kidney Disease: <60 mL/min/1.73sq m Kidney failure: <15 mL/min/1.73sq m eGFR calculated using average adult body mass. Additional eGFR calculator available at: http://www.[employer]/multiple_crcl_2011.htm Performed By: #### C MPX, CDP #### [facility] [address] [place], [place] [id number] Auto Hiker: Peter Conklin MD Albumin mass conc 4.3 g/dL Normal 3.5-5.2 [facility] Comment on above: Performed By: #### C MPX, CDP #### [facility] [address] [place], [place] [id number] Auto Hiker: Peter Conklin MD Albumin/Globulin mass ratio 1.2 {ratio} Normal 1.0-2.5 [facility] Comment on above: Performed By: #### C MPX, CDP #### [facility] [address] [place], [place] [id number] Auto Hiker: Peter Conklin MD Alkaline Phos 184 U/L High 35-104 [facility] Comment on above: Performed By: #### C MPX, CDP #### [facility] [address] [place], [place] [id number] Auto Hiker: Peter Conklin MD ALT enzyme act/vol 16 U/L Normal 5-33 [facility] Comment on above: Performed By: #### C MPX, CDP #### [facility] [address] [place], [place] [id number] Auto Hiker: Peter Conklin MD Anion gap molar conc 13 mmol/L Normal 9-17 [facility] Comment on above: Performed By: #### C MPX, CDP #### [facility] [address] [place] [address] Auto Hiker: Peter Conklin MD AST enzyme act/vol 20 U/L Normal <32 [facility] Comment on above: Performed By: #### C MPX, CDP #### [facility] [address] [place], [place] [phone] Auto Hiker: Peter Conklin MD Bilirubin Ql (U) 0.36 mg/dL Normal 0.3-1.2 [facility] Comment on above: Performed By: #### C MPX, CDP #### [facility] [address] [place], [place] [phone] Auto Hiker: Peter Conklin MD BUN/CRE Ratio 53 High 9-20 [facility] Comment on above: Performed By: #### C MPX, CDP #### [facility] [address] [place], [place] [phone] Auto Hiker: Peter Conklin MD Calcium mass conc 9.2 mg/dL Normal 8.6-10.4 [facility] Comment on above: Performed By: #### C MPX, CDP #### [facility] [address] [place], [place] [phone] Auto Hiker: Peter Conklin MD Chloride molar conc 103 mmol/L Normal 98-107 [facility] Comment on above: Performed By: #### C MPX, CDP #### [facility] [address] [place], [place] [phone] Auto Hiker: Peter Conklin MD CO2 molar conc 25 mmol/L Normal 20-31 [facility] Comment on above: Performed By: #### C MPX, CDP #### [facility] [address] [place], [place] [phone] Auto Hiker: Peter Conklin MD Creatinine mass conc 0.60 mg/dL Normal 0.50-0.90 [facility] Comment on above: Performed By: #### C MPX, CDP #### [facility] [address] [place], [place] [phone] Auto Hiker: Peter Conklin MD GFR, Amer >60 Normal >60 [facility] Comment on above: Performed By: #### C MPX, CDP #### [facility] [address] [place], [place] [address]83 Auto Hiker: Peter Conklin MD GFR,non Amer >60 Normal >60 [facility] Comment on above: Performed By: #### C MPX, CDP #### [facility] [address] [place], [place] [address]83 Auto Hiker: Peter Conklin MD Glucose mass conc 123 mg/dL High 70-99 [facility] Comment on above: Performed By: #### C MPX, CDP #### [facility] [address] [place], [place] [address]83 Auto Hiker: Peter Conklin MD Potassium molar conc 4.0 mmol/L Normal 3.7-5.3 [facility] Comment on above: Performed By: #### C MPX, CDP #### [facility] [address] [place], [place] [id number] Auto Hiker: Peter Conklin MD Protein mass conc 7.8 g/dL Normal 6.4-8.3 [facility] Comment on above: Performed By: #### C MPX, CDP #### [facility] [address] [place], [place] [phone] Auto Hiker: Peter Conklin MD Sodium molar conc 141 mmol/L Normal 135-144 [facility] Comment on above: Performed By: #### C MPX, CDP #### [facility] [address] [place] [address] Auto Hiker: Peter Conklin MD Staging: Normal [facility] Comment on above: Result Comment: Stag e 1: Some kidney damage normal GFR Stage 2: Mild kidney damage GFR 60-89 Stage 3: Moderate kidney damage GFR 30-59 Stage 4: Severe kidney damage GFR 15-29 Stage 5: Severe kidney damage GFR <15 ESRD - chronic treatment by dialysis or transplant Performed By: #### C MPX, CDP #### [facility] [address] [place] [address] Auto Hiker: Peter Conklin MD Urea nitrogen mass conc 32 mg/dL High 8-23 [facility] Comment on above: Performed By: #### C MPX, CDP #### [facility] [address] [place] [address] Auto Hiker: Peter Conklin MD Urinalysis, Routineon 2018 Acetoacetic Acid,Ur Negative Normal NEG [facility] Comment on above: Performed By: #### U A, UMICAO #### [facility] [address] [place] [address] Auto Hiker: Peter Conklin MD Bilirubin, SemiQt,Ur Negative Normal [facility] Comment on above: Performed By: #### U A, UMICAO #### [facility] [address] [place] [address] Auto Hiker: Peter Coknlin MD Color Nom (U) YELLOW Normal [facility] Comment on above: Performed By: #### U A, UMICAO #### [address] [place] [address] Auto Hiker: Peter Conklin MD Glucose,Semi-qnt,Ur Negative Normal [facility] Comment on above: Performed By: #### U A, UMICAO #### [facility] [address] [place] [address] Auto Hiker: Peter Conklin MD Hemoglobin, Ur 3+ Abnormal NEG [facility] Comment on above: Performed By: #### U A, UMICAO #### [facility] [address] [place], [place] [phone] Auto Hiker: Peter Conklin MD Leuckocyte Esterase SMALL Abnormal NEG [facility] Comment on above: Performed By: #### U A, UMICAO #### [facility] [address] [place] [address] Auto Hiker: Peter Conklin MD Nitrite,Ur Negative Normal NEG [facility] Comment on above: Performed By: #### U A, UMICAO #### [facility] [address] [place], [place] [phone] Auto Hiker: Peter Conklin MD PH,Ur 5.5 Normal 5.0-9.0 [facility] Comment on above: Performed By: #### U A, UMICAO #### [facility] [address] [place] [address] Auto Hiker: Peter Conklin MD Protein mass conc (U) TRACE Abnormal NEG [facility] Comment on above: Performed By: #### U A, UMICAO #### [facility] [address] [place], [place] [phone] Auto Hiker: Peter Conklin MD Spec. Chappells,Ur >1.030 High 1.010-1.020 [facility] Comment on above: Performed By: #### U A, UMICAO #### [facility] [address] [place], [place] [phone] Auto Hiker: Peter Conklin MD Turbidity SLIGHTLY CLOUDY Abnormal CLEAR [facility] Comment on above: Performed By: #### U A, UMICAO #### [facility] [address] [place] [address] Auto Hiker: Peter Conklin MD Urobilinogen,Ur Normal Normal NORM [facility] Comment on above: Performed By: #### U A, UMICAO #### [facility] [address] [place], [place] [phone] Auto Hiker: Peter Conklin MD Comment NOT REPORTED Normal [facility] [facility] Comment on above: Performed By: #### U A, UMICAO #### [facility] [address] [place], [place] [id number] Auto Hiker: Peter Conklin MD Urinalysis,Microon 9 ----- Normal [facility] Comment on above: Performed By: #### U A, UMICAO #### [facility] [address] [place] [id number] Auto Hiker: Peter Conklin MD Bacteria LM.HPF #/area (Urine sed) TRACE Abnormal [facility] Comment on above: Performed By: #### U A, UMICAO #### [facility] [address] [place] [address] Auto Hiker: Peter Conklin MD Epithelial cells LM.HPF #/area (Urine sed) 2 TO 5 Normal 0-25 [facility] Comment on above: Performed By: #### U A, UMICAO #### [facility] [address] [place] [address] Auto Hiker: Peter Conklin MD Mucus Strands TRACE Abnormal [facility] Comment on above: Performed By: #### U A, UMICAO #### [facility] [address] [place] [address] Auto Hiker: Peter Conklin MD RBC #/vol (U) 50 TO 100 Normal 0-2 [facility] Comment on above: Performed By: #### U A, UMICAO #### [facility] [address] [place] [address] Auto Hiker: Peter Conklin MD WBC #/vol (U) 2 TO 5 Normal 0-5 [facility] Comment on above: Performed By: #### U A, UMICAO #### [facility] [address] [place] [id number] Auto Hiker: Peter Conklin MD Amorphous sediment LM Ql (Urine sed) NOT REPORTED Normal [facility] Comment on above: Performed By: #### U A, UMICAO #### [facility] [address] [place] [address] Auto Hiker: Peter Conklin MD Casts LM.LPF #/area (Urine sed) NOT REPORTED Normal [facility] Comment on above: Performed By: #### U A, UMICAO #### [facility] [address] [place] [address] Auto Hiker: Peter Conklin MD Crystals LM Nom (Urine sed) NOT REPORTED Normal NONE [facility] Comment on above: Performed By: #### U A, UMICAO #### [facility] [address] [place], [place] [phone] Auto Hiker: Peter Conklin MD Epithelial, Renal NOT REPORTED Normal 0 [facility] Comment on above: Performed By: #### U A, UMICAO #### [facility] [address] [place], [place] [id number] Auto Hiker: Peter Conklin MD Other Observations NOT REPORTED Normal [facility] Comment on above: Performed By: #### U A, UMICAO #### [facility] [address] [place], [place] [id number] Auto Hiker: Peter Conklin MD Trichomonas NOT REPORTED Normal [facility] Comment on above: Performed By: #### U A, UMICAO #### [facility] [address] [place], [place] [id number] Auto Hiker: Peter Conklin MD Yeast LM Ql (Urine sed) NOT REPORTED Normal NONE [facility] Comment on above: Performed By: #### U A, UMICAO #### [facility] [address] [place], [place] [id number] Auto Hiker: Peter Conklin MD Vital Signs Date Time Vital Sign Value Performing Clinician Facility 06-13-2023 09:00-0500 Body height 161.29 cm Mckinley Ball Other [facility] Other 06-13-2023 09:00-0500 Body mass index (BMI) [Ratio] 35.43 kg/m2 Mckinley Ball Other [facility] Other 06-13-2023 09:00-0500 Body weight 92.17 kg Mckinley Ball Other [facility] Other 06-13-2023 09:00-0500 Diastolic blood pressure 77 mm[Hg] Mckinley Ball Other [facility] Other 06-13-2023 09:00-0500 Respiratory rate 12 /min Mckinley Ball Other [facility] Other 06-13-2023 09:00-0500 Systolic blood pressure 127 mm[Hg] Mckinley Ball Other [facility] Other 05-03-2023 08:30-0500 Body height 161.29 cm Mckinley Ball Other [facility] Other 05-03-2023 08:30-0500 Body mass index (BMI) [Ratio] 35.39 kg/m2 Mckinley Ball Other [facility] Other 05-03-2023 08:30-0500 Body weight 92.08 kg Mckinley Ball Other [facility] Other 05-03-2023 08:30-0500 Diastolic blood pressure 79 mm[Hg] Mckinley Ball Other [facility] Other 05-03-2023 08:30-0500 Respiratory rate 12 /min Mckinley Ball Other [facility] Other 05-03-2023 08:30-0500 Systolic blood pressure 133 mm[Hg] Mckinley Ball Other [facility] Other 03-08-2023 09:30-0400 Body height 161.29 cm Mckinley Ball Other [facility] Other 03-08-2023 09:30-0400 Body mass index (BMI) [Ratio] 35.01 kg/m2 Mckinley Ball Other [facility] Other 03-08-2023 09:30-0400 Body weight 91.08 kg Mckinley Ball Other [facility] Other 03-08-2023 09:30-0400 Diastolic blood pressure 83 mm[Hg] Mckinley Ball Other [facility] Other 03-08-2023 09:30-0400 Respiratory rate 12 /min Mckinley Ball Other [facility] Other 03-08-2023 09:30-0400 Systolic blood pressure 134 mm[Hg] Mckinley Ball Other [facility] Other 01-04-2023 11:30-0400 Body height 161.29 cm Mckinley Ball Other [facility] Other 01-04-2023 11:30-0400 Body mass index (BMI) [Ratio] 34.69 kg/m2 Mckinley Ball Other [facility] Other 01-04-2023 11:30-0400 Body weight 90.27 kg Mckinley Ball Other [facility] Other 01-04-2023 11:30-0400 Diastolic blood pressure 81 mm[Hg] Mckinley Ball Other [facility] Other 01-04-2023 11:30-0400 Respiratory rate 12 /min Mckinley Ball Other [facility] Other 01-04-2023 11:30-0400 Systolic blood pressure 131 mm[Hg] Mckinley Ball Other [facility] Other 12-12-2022 07:50-0400 Body height 153.1 cm Marianne Li MD Work Phone: [facility] 12-12-2022 07:50-0400 Body mass index (BMI) [Ratio] 38.4 kg/m2 Marianne Li MD Work Phone: [facility] 12-12-2022 07:50-0400 Body weight 90 kg Marianne Li MD Work Phone: [facility] 11-01-2022 14:30-0400 Body height 161.29 cm Keara Bullard Other [facility] Other 11-01-2022 14:30-0400 Body mass index (BMI) [Ratio] 35.22 kg/m2 Keara Bullard Other [facility] Other 11-01-2022 14:30-0400 Body weight 91.63 kg Keara Bullard Other [facility] Other 11-01-2022 14:30-0400 Diastolic blood pressure 84 mm[Hg] Keara Bullard Other [facility] Other 11-01-2022 14:30-0400 Systolic blood pressure 130 mm[Hg] Keara Bullard Other [facility] Other 09-28-2022 10:05-0400 Diastolic blood pressure 75 mm[Hg] DO Arnoldo House Work Phone: [facility] 09-28-2022 10:05-0400 Heart rate 60 /min DO Arnoldo House Work Phone: [facility] 09-28-2022 10:05-0400 Respiratory rate 16 /min DO Arnoldo House Work Phone: [facility] 09-28-2022 10:05-0400 SaO2% (BldA) [Mass fraction] 98 % DO Arnoldo House Work Phone: [facility] 09-28-2022 10:05-0400 Systolic blood pressure 153 mm[Hg] DO Arnoldo House Work Phone: [facility] 09-28-2022 07:48-0400 Body height 160.02 cm DO Arnoldo House Work Phone: [facility] 09-28-2022 07:48-0400 Body temperature 98.9 [degF] DO Arnoldo Nixon Work Phone: [facility] 09-28-2022 07:48-0400 Body weight 93.89 kg DO Arnoldo Applifier Work Phone: [facility] 07-04-2022 09:30-0500 Body height 161.29 cm Mckinley Ball Other [facility] Other 07-04-2022 09:30-0500 Body mass index (BMI) [Ratio] 36.3 kg/m2 Mckinley Ball Other [facility] Other 07-04-2022 09:30-0500 Body weight 94.44 kg Mckinley Ball Other [facility] Other 07-04-2022 09:30-0500 Diastolic blood pressure 78 mm[Hg] Mckinley Ball Other [facility] Other 07-04-2022 09:30-0500 Respiratory rate 12 /min Mckinley Ball Other [facility] Other 07-04-2022 09:30-0500 Systolic blood pressure 122 mm[Hg] Mckinley Ball Other [facility] Other 03-09-2022 15:30-0400 Body height 161.29 cm Arabella Arechiga Other [facility] Other 03-09-2022 15:30-0400 Body mass index (BMI) [Ratio] 36.79 kg/m2 Arabella Pimentelault Other [facility] Other 03-09-2022 15:30-0400 Body temperature 97.1 [degF] Arabella Pimentelault Other [facility] Other 03-09-2022 15:30-0400 Body weight 95.71 kg Arabella Pimentelault Other [facility] Other 03-09-2022 15:30-0400 Diastolic blood pressure 85 mm[Hg] Arabella Pimentelault Other [facility] Other 03-09-2022 15:30-0400 Respiratory rate 18 /min Arabella Pimentelault Other [facility] Other 03-09-2022 15:30-0400 SaO2% (BldA) [Mass fraction] 99 % Arabella Pimentelault Other [facility] Other 03-09-2022 15:30-0400 Systolic blood pressure 135 mm[Hg] Arabella Pimentelault Other [facility] Other Encounters Encounter Date Encounter Type Care Provider Facility Start: 07-26-2023 End: 07-27-2023 ambulatory JIL HONG Not Available Start: 07-10-2023 End: 07-10-2023 ambulatory JIL HONG Not Available Start: 06-15-2023 End: 06-15-2023 ambulatory LYRIC RODRIGUEZ Not Available Start: 06-13-2023 Office outpatient vi sit 15 minutes Mckinley Alfaro [facility] Start: 06-13-2023 End: 06-14-2023 ambulatory JOHN JEROME [facility] Other Start: 06-12-2023 End: 06-12-2023 ambulatory DELL MACHUCAO [...] Available Start: 05-18-2023 End: 05-18-2023 ambulatory Mckinley Dominic Other [facility] Other Start: 05-18-2023 Telephone encounter Mckinley Alfaro [facility] Start: 05-10-2023 End: 05-10-2023 ambulatory RACHELLE TATTERSALL Not Available Start: 05-08-2023 End: 05-08-2023 ambulatory JIL HONG Not Available Start: 05-07-2023 End: 05-08-2023 ambulatory AL SALGADO Not Available Start: 05-03-2023 End: 05-03-2023 ambulatory IVONNE KELBLEY [facility] Other Start: 05-03-2023 Office outpatient vi sit 15 minutes Mckinley Alfaro [facility] Start: 04-30-2023 End: 05-01-2023 ambulatory IVONNE KELBLEY [...] Start: 03-30-2023 End: 04-02-2023 ambulatory JOHN Mina APLMEHRAN Not Available Start: 03-08-2023 End: 03-08-2023 ambulatory Mckinley Alfaro Other [facility] Other Start: 03-08-2023 Office outpatient vi sit 15 minutes Mckinley Alfaro [facility] Start: 02-07-2023 End: 02-07-2023 ambulatory Mckinley Alfaro Other [facility] Other Start: 02-07-2023 Telephone encounter Mckinley Alfaro [facility] Start: 01-04-2023 End: 01-04-2023 ambulatory Mckinley Alfaro Other [facility] Other Start: 01-04-2023 Encounter for other preprocedural examination Mckinley Alfaro [facility] Start: 01-04-2023 Office outpatient vi sit 25 minutes Mckinley Alfaro [facility] Start: 12-21-2022 Message Mckinley chase Work Phone: [facility] a 219 DO Work Phone: Start: 12-12-2022 End: 12-12-[address] Marianne Li Facility:[id number] Start: 12-12-2022 End: 12-12-2022 Subsequent hospital visit by physician Marianne Li MD Work Phone: [facility] Comment on above: Polyp of stomach and duodenum Start: 11-16-2022 End: 11-16-2022 ambulatory Mckinley Alfaro Other [facility] Other Start: 11-16-2022 Telephone encounter Mckinley BRYANT [facility] Start: 11-01-2022 End: 11-01-2022 ambulatory Keara Bullard Other [facility] Other Start: 11-01-2022 Office outpatient vi sit 15 minutes Keara Bullard [facility] Start: 09-28-2022 End: 09-28-2022 ambulatory [facility] Facility:[facility] Start: 09-28-2022 End: 09-28-2022 Admission to same day surgery center DO [facility] Work Phone: [facility] Work Phone: Start: 09-28-2022 End: 09-28-2022 ambulatory DO [facility] Work Phone: [facility] Work Phone: Start: 07-20-2022 End: 07-20-2022 ambulatory Mckinley Alfaro Other [facility] Other Start: 07-20-2022 Telephone encounter Mckinley Weinstein [facility] Start: 07-19-2022 End: 07-20-[address] MCKINLEY ALFARO Facility: Start: 07-04-2022 End: 07-04-2022 ambulatory Mckinley Alfaro Other [facility] Other Start: 07-04-2022 Office outpatient vi sit 25 minutes Mckinley Alfaro [facility] Start: 06-14-2022 End: 06-14-2022 ambulatory Araeblla Arechiga Other [facility] Other Start: 06-14-2022 Telephone encounter Arabella vega [facility] Start: 06-13-2022 End: 06-14-[address] MCKINLEY ALFARO Facility:[facility] Start: 06-07-2022 End: 06-07-[address] MCKINLEY ALFARO Facility:[facility] Start: 05-03-2022 End: 05-04-[address] MCKINLEY ALFARO Facility:[facility] Start: 03-31-2022 End: 04-01-[address] MCKINLEY ALAFRO Facility:[facility] Start: 03-09-2022 End: 03-09-2022 ambulatory Arabella Arechiga Other [place] [facility] Other Start: 03-09-2022 Office outpatient vi sit 15 minutes Arabella Arechiga [facility] Start: 09-29-2021 End: 09-30-[address] MCKINLEY ALFARO Facility:[facility] Start: 10-05-2018 End: 10-05-2018 Emergency department patient visit MCKINLEY Levon DOMINIC [facility] Start: 10-04-2018 End: 10-04-2018 Emergency department patient visit HARJIT OLIVIA [facility] Start: 09-25-2017 End: 09-26-2017 Ambulatory DEFAULT PHYSICIAN Facility:[facility] Start: 09-07-2017 End: 09-08-2017 Ambulatory DEFAULT PHYSICIAN Facility:[facility] Procedures Date Procedure Procedure Detail Performing Clinician Start: 12-12-2022 SURGICAL PATHOLOGY RESULTS Marianne Li MD Work Phone: Start: 12-12-2022 Esophagoscopy flexible transoral ultrasound exam Marianne Li MD Work Phone: Start: 09-28-2022 Esophagogastroduodenoscopy DO Arnoldo Ho use Work Phone: Start: 10-04-2018 Urinalysis microscopic [...] Start: 01-19-2023 Influenza vaccination Influenza Vaccine (#1) [facility] Start: 09-28-2022 [facility] Start: 2017 Pneumococcal Vaccine: 65+ Years (1 - PCV) Pneumococcal Vaccine: 65+ Years (1 - PCV) [facility] Start: 2002 Zoster Vaccines (1 of 2) Zoster Vaccines (1 of 2) [facility] Start: 1992 Screening for malignant neoplasm of breast Mammogram [facility] Start: 1974 DTaP/Tdap/Td Vaccines (1 - Tdap) DTaP/Tdap/Td Vaccines (1 - Tdap) [facility] Start: 1970 Hepatitis C screening Hepatitis C Screening [facility] Start: 1950 COVID-19 Vaccine (#1) COVID-19 Vaccine (#1) [facility] Start: 1952 Lipid panel Lipid Panel [facility] Start: 1952 Screening for malignant neoplasm of colon [facility] Start: 1952 Screening for osteoporosis Bone Density Scan [facility] Start: 1950 Yearly Adult Physical Yearly Adult Physical [facility] Patient Education Esophageal Dil ation Hiatal Hernia (DC) Stomach Polyps [facility] Work Phone: Immunizations Immunization Date Immunization Notes Care Provider Fa dylan 03-08-2023 influenza, high dose seasonal, preservative-free Mckinley Alfaro Other [facility] Other 04-07-2022 diphtheria, tetanus toxoids and acellular pertussis vaccine, unspecified formulation Mckinley Alfaro Other [facility] Other 03-01-2022 influenza virus vaccine, split virus (incl. purified surface antigen) Mckinley Alfaro Other [facility] Other 08-04-2019 pneumococcal conjuga te vaccine, 13 valent Mckinley Alfaro Other [facility] Other Payers Date Payer Category Payer Self-pay [id number] 2022 Unknown [id number] 2015 Unknown [id number] 2015 Unknown [id number] 1959 Medicare [id number] 2.16.840.1.240176.19 1959 Self-pay [id number] 1959 Unknown [id number] 2.16.840.1.435735.19 1952 Unknown [id number] 2.16.840.1.477071.3.579.2.1 73 1952 Unknown [id number] 2.16.840.1.547620.3.579.2.1 73 1952 Unknown [id number] 2.16.840.1.923363.3.579.2.5 93 1952 Unknown [id number] 2.16.840.1.172464.3.579.2.5 93 1952 Unknown [id number] 2.16.840.1.646317.3.579.2.5 93 1952 Unknown [id number] 2.16.840.1.874987.3.579.2.5 93 1952 Unknown [id number] 2.16.840.1.132388.3.579.2.5 93 1952 Unknown [id number] 2.16.840.1.599714.3.579.2.1 069 1952 Unknown [id number] 2.16.840.1.264586.3.579.2.1 259 1952 Unknown [id number] 2.16.840.1.918067.3.579.2.1 259 1952 Unknown [id number] 2.16.840.1.700346.3.579.2.1 259 1952 Unknown [id number] 2.16.840.1.987410.3.579.2.1 259 1952 Unknown [id number] 2.16.840.1.895363.3.579.2.1 259 1952 Unknown [id number] 2.16.840.1.824215.3.579.2.1 259 1952 Unknown [id number] 2.16.840.1.166672.3.579.2.1 259 1952 Unknown [id number] 2.16.840.1.879751.3.579.2.1 259 1952 Unknown [id number] 2.16.840.1.288323.3.579.2.1 259 1952 Unknown [id number] 2.16.840.1.894091.3.579.2.1 259 1952 Unknown [id number] 2.16.840.1.399154.3.579.2.1 259 1952 Unknown [id number] 2.16.840.1.481394.3.579.2.1 259 1952 Unknown [id number] 2.16.840.1.069538.3.579.2.1 259 1952 Unknown [id number] 2.16.840.1.891274.3.579.2.1 259 1952 Unknown [id number] 2.16.840.1.763111.3.579.2.1 259 1952 Unknown [id number] 2.16.840.1.666724.3.579.2.1 259 1952 Unknown [id number] 2.16.840.1.514847.3.579.2.1 259 1952 Unknown [id number] 2.16.840.1.438173.3.579.2.1 259 1952 Unknown [id number] 2.16.840.1.121620.3.579.2.1 259 1952 Unknown [id number] 2.16.840.1.328580.3.579.2.1 259 1952 Unknown [id number] 2.16.840.1.396267.3.579.2.1 259 1952 Unknown [id number] 2.16.840.1.467904.3.579.2.1 259 1952 Unknown [id number] 2.16.840.1.091496.3.579.2.1 259 1952 Unknown [id number] 2.16.840.1.839315.3.579.2.1 259 1952 Unknown [id number] 2.16.840.1.768130.3.579.2.1 259 1952 Unknown [id number] 2.16.840.1.520769.3.579.2.1 259 Medicare Medicare-OP No Part B [id number] Unknown Unknown [id number] 2.16.840.1.496638.3.579.2.5 93 Unknown [id number] 2.16.840.1.506121.3.579.2.5 31 Worker's Compensation [employer] Misc [id number] Social History Date Type Detail Facility Unknown if ever smoked [facility] Other Sex Assigned At [facility] Other Start: 09-28-2022 Tobacco smoking status NHIS Never smoked tobacco (finding) [facility] Start: 1950 Sex Assigned At Female F [facility] Tobacco smoking status RIIS Tobacco smoking consumption unknown [facility] Work Phone: Start: 1950 Sex Assigned At Not on file [facility] Work Phone: Goals Date Patient Goal Desired Activity /State Clinical Notes 03-09-2022 to 06-13-2023 Note Date & Type Note Facility 06-13-2023 Evaluation note Encounter Date Diagnosis Assessment Notes May, Pain in right hip (ICD-10 - M25.551) ROM exercises, ice/heat, lidocaine and Voltaren Gel. Hydrocodone for pain relief at night. Prednisone for inflammatory treatment May, Primary osteoarthritis of right hip (ICD-10 - M16.11) IA injection w/o benefit. Discussed Trochanteric bursitis f/u Orthopedics May, Inflammatory polyarthritis (ICD-10 - M06.4) Discussed difference between OA and inflammatory arthritis May require evaluation w/ RA, ESR, CRP in future See what Prednisone effect on symptoms May, Nodule of flexor tendon sheath (ICD-10 - M67.90) Ice/heat and Voltaren Gel. Monitor for now w/ referral to Orthopedics w/ increased pain or trigger finger [facility] Other 12-14-2023 Evaluation note* Encounter Date Diagnosis Assessment Notes Treatment Notes Treatment Clinical Notes Apr, Age-related osteoporosis without current pathological [...] index [BMI] 35.0-35.9, adult (ICD-10 - Z68.35) [facility] Other 10-19-2023 Evaluation note* Encounter Date Diagnosis [...] to r/o fracture Continue Mobic and add Ennice for now. Consider PT if XR negative Feb, Right hip pain (ICD-10 - M25.551) XR to determine degree of arthritis and r/o fx. ROM exercises COntinue Mobic and add Ennice for now. Feb, Seborrheic dermatitis (ICD-10 - [...] index [BMI] 35.0-35.9, adult (ICD-10 - Z68.35) [facility] Other 08-17-2023 Evaluation note* Encounter Date Diagnosis [...] also instructed to stop Mobic and start Ennice, 7 days prior to her procedure. Dec, Gastroesophageal reflux disease with esophagitis without hemorrhage (ICD-10 - K21.00) Stable, continue medication w/o interruption Dec, Traumatic complete tear of right rotator cuff, subsequent encounter (ICD-10 - S46.011D) Scheduled for arthroscopic repair w/ Dr. Hong. 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 Refer to note in patient chart for documentation of history and physical. Providers: Marianne Li MD (Doctor), Sara Castillo RN (Nurse), Maciel Ferrer, Housekeeping Coordinator Referring: Marianne Li MD Medicines: See the [...] biopsy result. 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 Discussed options of treatment due to pt leaving for [place] on Sunday. SHe is agreeable to kenalog [...] Oct, Right hip pain (ICD-10 - M25.551) [facility] Encounter Date Diagnosis Assessment [...] exercise for 30 minutes, 3-5 times weekly. [facility] Other 10-20-2022 Evaluation note* Encounter Date Diagnosis [...] with primary care provider to discuss reaction. [facility] Other Evaluation noteNo InformationNort [facility] Other Evaluation note* Diagnosis Onset Date Resolution Status Dysphagia acute [facility] Work Phone: Evalujwrof note* Diagnosis Polyp of stomach and duodenum documented in this encounter [facility] Work Phone: History general Narrative - Reported* Type Description Date Medical History Hypertension Medical History Acid reflux Medical History Hiatal hernia Surgical History back surgery x3 Surgical History Neck Surgery Surgical History shoulder arthroscopy Surgical History hysterectomy Surgical History cholecystectomy Hospitalization History see above [facility] Other Hishxfg general Narrative - Reported* Type Description Date Medical History Hypertension Medical History Acid reflux Medical History Hiatal hernia Surgical History back surgery x3 Surgical History Neck Surgery Surgical History shoulder arthroscopy Surgical History hysterectomy Surgical History cholecystectomy Surgical History EGD w/ bx and dilatation 09/2022 Hospitalization History see above [facility] Other Hissavp general Narrative - Reported* Type Description Date Medical History Hypertension Medical History Acid reflux Medical History Hiatal hernia Surgical History back surgery x3 Surgical History Neck Surgery Surgical History shoulder arthroscopy Surgical History hysterectomy Surgical History cholecystectomy Surgical History EGD w/ bx and dilatation 09/2022 Surgical History Right shoulder arthroscopy 02/07 23 Hospitalization History see above [facility] Other Hisuyte general Narrative - Reported* Type Description Date Medical History Hypertension Medical History Acid reflux Medical History Hiatal hernia Surgical History back surgery x3 Surgical History Neck Surgery Surgical History shoulder arthroscopy Surgical History hysterectomy Surgical History cholecystectomy Surgical History EGD w/ bx and dilatation 09/2022 Surgical History Right shoulder arthroscopy 02/07 23 Surgical History Endoscopic US 11/2022 Hospitalization History see above [facility] Other Hospital Discharge instructions Additional Instructions DISCHARGE [...] if you have any problems. -Office number [phone] Work Phone: Summary Purpose Family History No [...] section and content) DATE CREATED AUTHOR 11/08/[address] [facility] DATE CREATED AUTHOR AUTHOR'S ORGANIZ ATION 10/13/2018 Doris Elmira [facility] DATE CREATED AUTHOR AUTHOR'S ORGANIZ ATION 07/21/2022 [facility] DATE CREATED AUTHOR AUTHOR'S ORGANIZ ATION 11/04/2022 [facility] DATE CREATED AUTHOR AUTHOR'S ORGANIZ ATION 12/21/2022 [facility] DATE CREATED AUTHOR AUTHOR'S ORGANIZ ATION 12/22/2022 [facility] DATE CREATED AUTHOR AUTHOR'S ORGANIZ ATION 07/30/2023 [facility] EPIC REASON FOR VISIT (unrecogniz ed section and content) Reason Comments Other EGD/EUS D49.0 [id number] Care Teams (unrecognized sec tion and content) Team Status: Active Member Role Status Dates Arnoldo Nixon DO Primary Care Provider Active Team Status: Inactive Member Role Status Dates Arnoldo Nixon DO Primary Care Provider Active Niurka Oliveira MD Attending Provider Active Nurse Obgyn Relationship Specialty Start Date End Date Mckinley [...] BE BASED ON THE PRIMARY CLINICAL RECORDS. [facility]. provides no warranty or guarantee of the accuracy or completeness of information in this document.
[2023-08-03 16:15] LABS: Basophils Absolute Auto 0.1 10^3/uL (0.0-0.1); Basophils Percent Auto 0.6 % (0.2-2.0); Eosinophils Absolute Auto 0.3 10^3/uL (0.0-0.7); Eosinophils Percent Auto 3.2 % (0.9-7.0); Hemoglobin 11.9 g/dL (12.0-16.0); Immature Granulocytes Abs Auto 0.03 10^3/uL (0.00-0.03); Immature Granulocytes Pct Auto 0.3 % (0.0-0.5); Lymphocytes Percent Auto 22.7 % (20.5-60.0); Mean Corpuscular HGB Conc 31.3 g/dL (29.9-35.2); Mean Corpuscular Hemoglobin 27.5 pg (26.7-34.0); Mean Corpuscular Volume 87.8 fL (81.0-99.0); Mean Platelet Volume 11.6 fL (9.5-13.5); Monocytes Absolute Auto 0.9 10^3/uL (0.3-0.8); Monocytes Percent Auto 9.9 % (1.7-12.0); Neutrophils Absolute Auto 5.6 10^3/uL (1.4-6.5); Neutrophils Percent Auto 63.3 % (43.0-75.0); Platelet Count 279 10^3/uL (150-450); Red Blood Count 4.33 10^6/uL (4.20-5.40); Red Cell Distribution Width 13.7 % (11.0-15.0); White Blood Count 8.8 10^3/uL (4.0-11.0)
[2023-08-03 16:51] LABS: Alanine Aminotransferase 21 U/L (14-59); Albumin Globulin Ratio 0.9; Albumin Level 3.4 g/dL (3.4-5.0); Alkaline Phosphatase 110 U/L (46-116); Anion Gap 11.2; Aspartate Amino Transferase 18 U/L (15-37); BUN Creatinine Ratio 29.5; Bilirubin Total 0.3 mg/dL (0.2-1.0); C Reactive Protein 1.82 mg/dL (<=0.50); Calcium 8.8 mg/dL (8.5-10.1); Carbon Dioxide 32.4 mmol/L (21.0-32.0); Chloride 103 mmol/L (98-107); Estimated GFR (African America >60 (>=60); Estimated GFR (Non-African Ame >60 (>=60); Globulin 3.8 g/dL; Glucose 150 mg/dL (74-106); Potassium 3.6 mmol/L (3.5-5.1); Sodium 143 mmol/L (136-145); Thyroid Stimulating Hormone 1.282 uIU/mL (0.358-3.740); Total Protein 7.2 g/dL (6.4-8.2)
[2023-08-06 13:07] LABS: Anti-CCP Ab, IgG/IgA 3 units (0-19)
[2023-08-07 12:09] LABS: Antinuclear Antibodies, IFA Negative (.)
== END 2023-08-03 10:36 | disposition home or self-care (01) ==
LOC: LAB 10:39
PROVIDERS: PCP Internal Medicine; Visit Provider Internal Medicine
DX: E03.9 Hypothyroidism, unspecified (principal); M06.4 Inflammatory polyarthropathy; I10 Essential (primary) hypertension; R53.83 Other fatigue
CPT/HCPCS: 36415; 80053; 82607; 84443; 85025; 86038; 86140; 86200

== ENCOUNTER 2023-08-09 13:45 | Outpatient (OUT) | payer MEDICARE, OTHER, SELFPAY ==
--- NOTE | 2023-08-09 13:48 | MM_ITS ---
Patient Name: FAHEEM MUÑOZ MR#: [id number] : 1950 Exam Date: 08/09/2023 Ordering Doctor: DR Mckinley Alfaro D.O. RADIOLOGY REPORT PROCEDURE: MM TOMOSYNTHESIS SCREENING BI COMPARISON: MG MAMM SCREEN 3D MANDY CAD, 06/13/2022. MG MAMM SCREEN 3D MANDY CAD, 06/09/2021. MG MAMM SCREEN MANDY W CAD, 07/03/2019. MG MAMM MANDY SCRN W CAD DIG, 10/17/2012. INDICATIONS: Screening Calculator Name NCI Breast Cancer Risk Assessment Tool 5 Year Breast Cancer Risk 2.00% Lifetime Breast Cancer Risk 5.60% Personal Breast Cancer No Personal Ovarian Cancer No Treatments None Family Cancers None LOCATION: [facility] BREAST COMPOSITION: Scattered areas fibroglandular density. FINDINGS: DIAGNOSTIC CATEGORY 2--BENIGN FINDING: RIGHT BREAST: No significant suspicious findings. Stable benign-appearing calcification and stable biopsy marker clip. LEFT BREAST: No significant suspicious findings. No significant change has occurred. RECOMMENDATIONS: ROUTINE MAMMOGRAM AND CLINICAL EVALUATION IN 12 MONTHS. PLEASE NOTE: A NORMAL MAMMOGRAM DOES NOT EXCLUDE THE POSSIBILITY OF BREAST CANCER. A CLINICALLY SUSPICIOUS PALPABLE LUMP SHOULD BE BIOPSIED. Dictated by: Denny Rose M.D. on 08/10/2023 at 13:40 Approved by: Denny Rose M.D. on 08/10/2023 at 13:46
== END 2023-08-09 13:46 | disposition home or self-care (01) ==
LOC: MAMMO 13:45
PROVIDERS: PCP Internal Medicine; Visit Provider Internal Medicine
DX: Z12.31 Encounter for screening mammogram for malignant neoplasm of breast (principal)
CPT/HCPCS: 77063; 77067

== ENCOUNTER 2023-10-13 10:37 | Outpatient (OUT) | payer MEDICARE, OTHER, SELFPAY ==
--- NOTE | 2023-10-13 | XR_ITS ---
The [address] [address] Patient Name: FAHEEM MUÑOZ MRN: [id number] date: 1950 Sex: F Assigned Patient Location: [facility] Current Patient Location: Accession/Order Number: [id number] Exam Date: 10/13/2023 10:40 Report Date: 10/16/2023 09:09 At the request of: JESSICA MONGE Procedure: XR hip LT 2V w/ pelvis PROCEDURE: XR hip LT 2V w/ pelvis HISTORY: M25.552 COMPARISON: None. FINDINGS: BONES:Narrowing of the hip joint spaces bilaterally and small periarticular osteophytes. No fracture or dislocation. Posterior mechanical fusion L5-S1. SOFT TISSUES:No visible soft tissue swelling. EFFUSION:None visible. OTHER: Negative. XR/XR hip LT 2V w/ pelvis IMPRESSION: 1. Moderate degenerative changes of hip joints bilaterally, predominantly consisting of narrowing of the joint space suggesting cartilage thinning. Electronically authenticated by: TIFFANY HICKMAN Date: 10/16/2023 09:09
--- OUTSIDE RECORDS SUMMARY | 2023-10-13 10:41 | XMS_ITS ---
Patient Summarization (C-CDA 2.1 CCD) Created on: October 13, 2023 Lizzy Welsh : 1950 Sex: Female Author Organization Sample organization Care Team Providers Care Wax Pattern Assembler Name Role Phone PHYSICIAN, DEFAULT Unavailable Unavailable PHYSICIAN, DEFAULT Unavailable Unavailable PHYSICIAN, DEFAULT Unavailable Unavailable PHYSICIAN, DEFAULT Unavailable Unavailable HARJIT OLIVIA Attending Unavailable DOMINIC, MCKINLEY Dos Santos Primary Care Unavailable DOMINIC, MCKINLEY Dos Santos Primary Care Unavailable Arabella Arechiga Unavailable DOMINIC, DR SEN Primary Care Unavailable BALL, DR SEN Admitting Unavailable BALL, DR SEN Attending Unavailable BALL, DR SEN Consulting Unavailable NAQVINICANOR Consulting Unavailable BALL, DR SEN Primary Care Unavailable ALEX ., DR SHARPE Admitting Unavailable ALEX ., DR SHARPE Attending Unavailable ALEX ., DR SHARPE Consulting Unavailable BALL, DR SEN Primary Care Unavailable BALL, DR SEN Admitting Unavailable BALL, DR SEN Attending Unavailable BALL, DR SEN Consulting Unavailable ALEX ., DR SHARPE Consulting Unavailable ZIEBER, DR DENNY Vasquez Consulting Unavailable BALL, DR SEN Primary Care Unavailable REQUEST, DR JOHNSON LISTED Admitting Unavaila ble BALL, DR SEN Consulting Unavailable REQUEST, DR JOHNSON LISTED Attending Unavaila ble REQUEST, DR JOHNSON LISTED Consulting Unavaila ble BALL, DR SEN Admitting Unavailable BALL, DR SEN Attending Unavailable BALL, DR SEN Consulting Unavailable BALL, DR SEN Primary Care Unavailable ZIEBER, DR DENNY Vasquez Consulting Unavailable BALL, DR SEN Admitting Unavailable BALL, DR SEN Attending Unavailable BALL, DR SEN Consulting Unavailable BALL, DR SEN Primary Care Unavailable Dominic, Mckinley Unavailable DO Arnoldo Nixon Primary Care Provider MD Ash Oliveira Attending Provider Keara Bullard Unavailable Mckinley Alfaro Unavailable Dinary, Dr. Lopes Attending Unavailable Dinary, Dr. Lopes Referring Unavailable Ball, Dr. Mckinley Nair Primary Care Unavai madyson Jen, Dr. Lopes Admitting Unavailable Ball DO, Mckinley Nair Primary Care Provider U filippoailYSABEL Hough Attending Unavailable APLING, JOHN B Referring Unavailable [...] Referring Unavailable SHERRIE, JIL Nagy Attending Unavailable YSABEL BAH Attending Unavailable APLING, JOHN B Referring Unavailable SHERRIE, JIL Nagy Referring Unavailable SHERRIE, JIL Nagy Attending Unavailable YSABEL BAH Attending Unavailable APLING, JOHN B Referring Unavailable SHERRIE, JIL Nagy Attending Unavailable SHERRIE, JIL Nagy Referring Unavailable SHERRIE, JIL Nagy Attending Unavailable [...] Attending Unavailable APLING, JOHN B Referring Unavailable Ball, DO Sen Primary Care Provider MD Tano Tsai Attending Provider Ash Oliveira Attending UnavailAsh Nichols Admitting UnavailArnoldo Sutton Primary Care Unavailable Mckinlye Alfaro Primary Care Unavailable Tano Tsai Attending Unavailable Tano Tsai Admitting Unavailable Mckinley Alfaro Primary Care Unavailable Tano Tsai Attending Unavailable Tano Tsai Admitting Unavailable Allergies Allergy Classification Reported Allergen(s) Allergy Type Date of Onset Reaction(s) Facility (6 sources) Penicillin G Drug Allergy anaphylaxis [facility] Other (1 source) Penicillin Drug Allergy 01-23-20 15 [facility] Repository (5 sources) Adhesive Tape; Translations: [adhesive tape] Propensity to adverse reactions 02-24-20 17 Redness of Skin [facility] (6 sources) Penicillins; Translations: [Penicillins] Allergy to substance 02-24-20 17 Swelling of Lip/Tongue/Thr oat [facility] (6 sources) Adhesive Tape Drug allergy 04-19-20 16 Unknown [facility] Other (9 sources) Nitrofurantoin Drug Allergy 07-30-19 24 Comment:Macrob id [facility] (6 sources) Sulfamethoxazole / Trimethoprim Drug Allergy Unknown [facility] Other (6 sources) tiZANidine Comfort Pac *MUSCULOSKELETAL THERAPY AG Propensity to adverse reactions Comment:Could not sleep/rest. [facility] Other (6 sources) Substance with penicillin structure and antibacterial mechanism of action (substance) Drug allergy 04-19-20 16 Unknown [facility] Other (4 sources) Sulfamethoxazole; Translations: [sulfamethoxazole] Drug Allergy 07-30-19 24 Unknown Reaction [facility] (4 sources) tiZANidine; Translations: [tizanidine] Drug Allergy 07-30-19 24 Insomnia [facility] (4 sources) Trimethoprim; Translations: [trimethoprim] Drug Allergy 07-30-19 24 Unknown Reaction [facility] (1 source) Nitrofurantoin Drug Allergy 07-30-19 24 [facility] Repository Encounters Encounter Date Encounter Type Care Provider Facility Start: 10-12-2023 End: 10-12-2023 ambulatory DO Mckinley Alfaro Work Phone: [facility] Work Phone: Start: 10-12-2023 End: 10-12-2023 Patient encounter procedure DO Mckinley Alfaro Work Phone: [facility] Work Phone: Start: 09-13-2023 End: 09-13-2023 ambulatory Mckinley Alfaro Facility:[facility] Start: 09-13-2023 End: 09-13-2023 ambulatory DO Mckinley Alfaro Work Phone: [facility] Work Phone: Start: 09-13-2023 End: 09-13-2023 Patient encounter procedure DO Mckinley Alfaro Work Phone: [facility] [address] Work Phone: Start: 09-12-2023 End: 09-12-2023 ambulatory Mckinley Alfaro Facility:[facility] Start: 09-12-2023 End: 09-12-2023 ambulatory DO Mckinley Alfaro Work Phone: [facility] Work Phone: Start: 09-12-2023 End: 09-12-2023 Patient encounter procedure DO Mckinley Alfaro Work Phone: [facility] [address] Work Phone: Start: 09-06-2023 End: 09-07-2023 ambulatory JIL HONG Not Available Start: 08-23-2023 End: 08-23-2023 ambulatory JIL HONG Not Available Start: 08-03-2023 Non-patient / Non-visit DO Augie Alfaro Work Phone: [facility] Work Phone: Start: 07-30-2023 End: 07-30-2023 Patient encounter procedure DO Mckinley Alfaro [facility] Phone[facility] Work Phone: Start: 07-26-2023 End: 07-27-2023 ambulatory JIL HONG Not Available Start: 07-10-2023 End: 07-10-2023 ambulatory JIL HONG Not Available Start: 06-15-2023 End: 06-15-2023 ambulatory LYRIC RODRIGUEZ Not Available Start: 06-13-2023 Office outpatient vi sit 15 minutes Mciknley Alfaro [facility] Start: 06-13-2023 End: 06-14-2023 ambulatory JOHN B APLING [facility] Other Start: 06-12-2023 End: 06-12-2023 ambulatory DELL JOHNSON Not Available Start: 06-11-2023 End: 06-11-2023 ambulatory [...] 05-18-2023 End: 05-18-2023 ambulatory Mckinley Alfaro Other [employer] Other Start: 05-18-2023 Telephone encounter Mckinley Alfaro [facility] Start: 05-10-2023 End: 05-10-2023 ambulatory RACHELLE GUERREROTERSALL Not Available Start: 05-08-2023 End: 05-08-2023 ambulatory JIL HONG Not Available Start: 05-07-2023 End: 05-08-2023 ambulatory AL SALGADO Not Available Start: 05-03-2023 End: 05-03-2023 ambulatory IVONNE KELBLEY [facility] Other Start: 05-03-2023 Office outpatient vi sit 15 minutes Mckinley Alfaro [facility] Start: 04-30-2023 End: 05-01-2023 ambulatory IVONNE KELBLEY Not Available Start: 04-25-2023 End: 04-25-2023 ambulatory JOHN B APLING Not Available Start: 04-20-2023 End: 04-21-2023 ambulatory IVONNE KELBLEY Not Available Start: 04-17-2023 End: 04-17-2023 ambulatory JIL HONG Not Available Start: 04-16-2023 End: 04-16-2023 ambulatory YSABEL BAH Not Available Start: 04-09-2023 End: 04-09-2023 ambulatory YSABEL BAH Not Available Start: 04-06-2023 End: 04-09-2023 ambulatory LYRIC RODRIGUEZ Not Available Start: 04-03-2023 End: 04-03-2023 ambulatory YSABEL BAH Not Available Start: 03-30-2023 End: 04-02-2023 ambulatory JOHN JEROME Not Available Start: 03-08-2023 End: 03-08-2023 ambulatory Mckinley Dominic Other [employer] Other Start: 03-08-2023 Office outpatient vi sit 15 minutes Mckinley Alfaro [facility] Start: 02-07-2023 End: 02-07-2023 ambulatory Mckinley Alfaro Other [employer] Other Start: 02-07-2023 Telephone encounter Mckinley Alfaro [facility] Start: 01-04-2023 End: 01-04-2023 ambulatory Mckinley Alfaro Other [employer] Other Start: 01-04-2023 Encounter for other preprocedural examination Mckinley Alfaro [facility] Start: 01-04-2023 Office outpatient vi sit 25 minutes Mckinley Alfaro [facility] Start: 12-21-2022 Message Mckinley chase Work Phone: [facility] Work Phone: Start: 12-12-2022 End: 12-12-[address] Marianne Li Facility:[id number] Start: 12-12-2022 End: 12-12-2022 Subsequent hospital visit by physician Marianne Li MD Work Phone: [facility] Comment on above: Polyp of stomach and duodenum Start: 11-16-2022 End: 11-16-2022 ambulatory Mckinley Dominic Other [employer] Other Start: 11-16-2022 Telephone encounter Mckinley Alfaro [facility] Start: 11-01-2022 End: 11-01-2022 ambulatory Keara Bullard Other [employer] Other Start: 11-01-2022 Office outpatient vi sit 15 minutes Keara Bullard [facility] Start: 09-28-2022 End: 09-28-2022 ambulatory Ash Oliveira Facility:[facility] Start: 09-28-2022 End: 09-28-2022 Admission to same day surgery center DO Arnoldo House Work Phone: [facility] Work Phone: Start: 09-28-2022 End: 09-28-2022 ambulatory DO Arnoldo House Work Phone: [facility] Work Phone: Start: 07-20-2022 End: 07-20-2022 ambulatory Mckinley Alfaro Other [employer] Other Start: 07-20-2022 Telephone encounter Mckinley Alfaro [facility] Start: 07-19-2022 End: 07-20-[address] MCKINLEY ALFARO Facility:[facility] Start: 07-04-2022 End: 07-04-2022 ambulatory Mckinley Alfaro Other [employer] Other Start: 07-04-2022 Office outpatient vi sit 25 minutes Mckinley Alfaro [facility] Start: 06-14-2022 End: 06-14-2022 ambulatory Arabella Arechiga Other [employer] Other Start: 06-14-2022 Telephone encounter Arabella vega [facility] Start: 06-13-2022 End: 06-14-[address] MCKINLEY ALFARO Facility:[facility] Start: 06-07-2022 End: 06-07-[address] MCKINLEY ALFARO Facility:[facility] Start: 05-03-2022 End: 05-04-[address] MCKINLEY ALFARO Facility:[facility] Start: 03-31-2022 End: 04-01-[address] MCKINLEY ALFARO Facility:[facility] Start: 03-09-2022 End: 03-09-2022 ambulatory Arabella Arechiga Other [employer] Other Start: 03-09-2022 Office outpatient vi sit 15 minutes Arabella Arechiga [facility] Start: 09-29-2021 End: 09-30-[address] MCKINLEY ALFARO Facility:[facility] Start: 10-05-2018 End: 10-05-2018 Emergency department patient visit MCKINLEY ALFARO [facility] Start: 10-04-2018 End: 10-04-2018 Emergency department patient visit HARJIT Levon OLIVIA [facility] Start: 09-25-2017 End: 09-26-2017 Ambulatory DEFAULT PHYSICIAN [facility] Start: 09-07-2017 End: 09-08-2017 Ambulatory DEFAULT PHYSICIAN [facility] Goals Date Patient Goal Desired Activity /State Immunizations Immunization Date Immunization Notes Care Provider Fa dylan 03-08-2023 influenza virus vaccine, unspecified formulation DO Mckinley Alfaro Work Phone: [facility] 03-08-2023 influenza, high dose seasonal, preservative-free Mckinley Alfaro Other [employer] Other 04-07-2022 diphtheria, tetanus toxoids and acellular pertussis vaccine, unspecified formulation Mckinley Alfaro Other [facility] 03-01-2022 influenza virus vaccine, split virus (incl. purified surface antigen) Mckinley Alfaro Other [employer] Other 03-01-2022 influenza virus vaccine, unspecified formulation DO Mckinley Alfaro Work Phone: [facility] 08-04-2019 pneumococcal conjuga te vaccine, 13 valent Mckinley Alfaro Other [facility] Medications Current Medications Medication Drug Class(es) Dates Sig (Normalized) Sig (Original) acetaminophen 325 mg / HYDROcodone bitartrate 5 mg oral tablet (17 sources) Opioid Agonist Start: 10-12-2023 take 1 tablet by mouth twice daily Hydrocodone-Aceta minophen Active 1 TAB PO Twice daily 60 30 October 12, 2023 start 10/11 Start: 07-26-2023 End: 10-12-2023 take 1 tablet by mouth twice daily Hydrocodone-Acetaminophen Discontinued 1 TAB PO Twice daily 60 30 July 30, 2023 October 12, 2023 9:46am Start: 06-13-2023 take 1 tablet by romulo th every twelve hours HYDROcodone-Acetaminophen 5-325 MG 1 tablet as needed [...] tablet (20 sources) beta-Adrenergic Natacha Start: 04-08-2018 End: 07-26-2023 take 100 mg by mouth once daily Atenolol Active 100 MG PO Daily July 26, 2023 2:47pm Start: 02-23-2017 End: 04-08-2018 take 100 mg by mouth once daily Atenolol Discontinued 100 MG PO Daily February 23, 2017 12:00am April 08, 2018 8:29am take 1 tablet by romulo th every twenty-four hours Atenolol 50 MG 1 tablet Orally Once a day Not-Taking/PRN biotin 1 mg oral tablet (16 sources) Start: 04-08-2018 End: 07-26-2023 take 1 mg by mouth once daily Biotin Active 1 MG PO Daily July 26, 2023 2:47pm Start: 02-23-2017 End: 08-24-2017 take 3 tablets by mouth once daily Biotin Discontinued 3 TAB PO Daily February 23, 2017 12:00am August 24, 2017 7:39am take 1 tablet by romulo th every twenty-four hours Biotin Maximum Strength 62827 MCG 1 tablet Orally Once a day PRN Active take 1 tablet by romulo th every twenty-four hours Biotin Maximum Strength 01139 MCG 1 tablet Orally Once a day PRN Active Biotin Maximum Strength 07543 MCG (7 sources) take 1 tablet by romulo once daily as needed Biotin Maximum Strength 14305 MCG 1 tablet Orally Once a day PRN Active take 1 tablet by mouth once gayla y Biotin Maximum Strength 14825 MCG 1 tablet Orally Once a day Active dimenhyDRINATE 50 mg oral tablet (11 sources) Start: 07-26-2023 take 50 mg by mouth every six hours Dimenhydrinate Active 50 MG PO Every 6 hours July 26, 2023 1:00am take 1 tablet by mouth every six hours Dramamine 50 MG 1 tablet as needed Orally every 6 hrs Active hydroCHLOROthiazide 25 mg oral tablet (7 sources) Thiazide Diuretic Start: 09-28-2022 take 25 mg by mouth once daily Hydrochlorothiazide Active 25 MG PO Daily September 28, 2022 12:00am omeprazole 40 mg delayed release oral capsule (20 sources) Proton Pump Inhibitor Start: 07-26-2023 take 40 mg by mouth once daily Omeprazole Active 40 MG PO Daily July 26, 2023 1:00am Start: 08-24-2017 End: 07-26-2023 take 20 mg by mouth once daily Omeprazole Discontinued 20 MG PO Daily April 08, 2018 1:00am July 26, 2023 2:57pm Omeprazole 40 MG TAKE 1 CAPSULE BY MOUTH 30 MINUTES BEFORE MORNING MEAL EVERY DAY FOR 30 DAYS Orally Once a day for 90 days Active potassium chloride 10 meq extended release oral capsule (5 sources) Start: 07-26-2023 take 10 mEq by mouth once daily Potassium Chloride Active 10 MEQ PO Daily July 26, 2023 1:00am Start: 05-17-2023 take 1 capsule by [facility] every twenty-four hours Potassium Chloride ER 10 MEQ 1 capsule with food Orally Once a day for 30 days Apr, Active predniSONE 20 mg oral tablet (1 source) Start: 06-13-2023 predniSONE 20 MG 1 tablet Orally bid w/ food x 5 days then qd w/ food x 5 days for 10 days May, Active triamcinolone acetonide 0.005 mg/mg topical ointment (15 sources) Corticosteroid Start: 07-26-2023 Triamcinolone Acetonide Active 1 APPLIC TOPICAL Twice daily July 26, 2023 1:00am Start: 03-08-2023 Triamcinolone Acetonide 0.5 % 1 application Externally Twice a day for 30 days Feb, Active Start: 11-01-2022 Kenalog-40 Oct, 40 mg 100 ml zoledronic acid 0.05 mg/ml injection (6 sources) Bisphosphonate Start: 07-26-2023 Zoledronic Quli-Woahtwjy-Vsndv (Reclast) 5 mg/100 mL piggyback Active EACH IV As Directed July 26, 2023 1:00am Start: 05-03-2023 Reclast 5 MG/1 00ML as directed Intravenous Apr, Active Completed/Discontinued Medications Medication Drug Class(es) Dates Sig (Normalized) Sig (Original) aspirin 81 mg delayed release oral tablet (4 sources) Platelet Aggregation Inhibitor, Nonsteroidal Anti-inflammatory Drug Start: 04-02-2018 End: 09-28-2022 take 1 tablet by mouth once daily Aspirin (Aspir-81) 81 mg Tablet,Delayed Release (Dr/Ec) Discontinued 81 MG PO Daily April 02, 2018 1:00am September 28, 2022 7:46am Calcium (4 sources) Phosphate Binder, Calcium Start: 09-28-2022 End: 07-26-2023 take 500 mg by mouth once daily Calcium Discontinued 500 MG PO Daily September 28, 2022 12:00am July 26, 2023 2:56pm Start: 09-28-2022 take 500 mg by mouth once gayla y Calcium Active 500 MG PO Daily September 28, 2022 12:00am Calcium Carb-Magnesium Ox,Carb (Eliud-Mag) 200 mg calcium- 100 mg Tablet,Chewable (4 sources) Start: 02-23-2017 End: 08-24-2017 take 1 tablet by mouth once daily Calcium Carb-Magnesium Ox,Carb (Eliud-Mag) 200 mg calcium- 100 mg Tablet,Chewable Discontinued 1 TAB PO Daily February 23, 2017 12:00am August 24, 2017 7:39am calcium carbonate 750 mg chewable tablet (8 sources) Start: 09-28-2022 End: 07-26-2023 take 1 tablet by mouth twice daily Calcium Carbonate (Tums) 300 mg (750 mg) Tablet,Chewable Discontinued 300 MG PO Twice daily September 28, 2022 12:00am July 26, 2023 2:56pm Start: 08-24-2017 End: 10-21-2018 Calcium Carbonate (Calcium 5 00) 500 mg calcium (1,250 mg) Tablet Discontinued 1000 MG PO Daily August 24, 2017 12:00am October 21, 2018 8:46am cholecalciferol 0.025 mg oral tablet (4 sources) Vitamin D Start: 09-28-2022 End: 07-26-2023 take 1 tablet by mouth once daily Cholecalciferol (Vitamin D3) (Vitamin D3) 25 mcg (1,000 unit) Tablet Discontinued 25 MCG PO Daily September 28, 2022 12:00am July 26, 2023 2:56pm hydroCHLOROthiazide 12.5 mg / olmesartan medoxomil 20 mg oral tablet (4 sources) Thiazide Diuretic, Angiotensin 2 Receptor Natacha Start: 04-02-2018 End: 10-21-2018 take 1 tablet by mouth once daily Olmesartan-Hydrochl orothiazide (Benicar Hct) 20-12.5 mg Tablet Discontinued 1 TAB PO Daily April 02, 2018 1:00am October 21, 2018 8:47am hydroCHLOROthiazide 12.5 mg / valsartan 80 mg oral tablet (8 sources) Thiazide Diuretic, Angiotensin 2 Receptor Natacha Start: 08-24-2017 End: 04-02-2018 take 1 tablet by mouth once daily Valsartan-Hydrochlo rothiazide Discontinued 1 TAB PO Daily August 24, 2017 12:00am April 02, 2018 10:59am Start: 02-23-2017 End: 04-20-2017 take 1 tablet by mouth once daily Valsartan-Hydrochlorothiazide Discontinu ed 1 TAB PO Daily February 23, 2017 12:00am April 20, 2017 9:52am hydrocortisone 10 mg/ml / neomycin 3.5 mg/ml / polymyxin b 14277 unt/ml otic solution (12 sources) Aminoglycoside Antibacterial, Polymyxin-class Antibacterial, Corticosteroid Start: 03-09-2022 Oeqvfzfn-Ymhtyisqv-TR 3.5-45350-2 4 drops into affected ear Otic Three times a day for 7 day(s) Feb, Not-Taking/PRN inulin 2000 mg chewable tablet (4 sources) Start: 09-28-2022 End: 07-26-2023 take 1 tablet by mouth once daily Inulin (Fiber Gummies) 2 gram Tablet,Chewable Discontinued 1 GM PO Daily September 28, 2022 12:00am July 26, 2023 2:56pm Magnesium (4 sources) Start: 04-08-2018 End: 10-21-2018 take 250 mg by mouth once daily Magnesium Discontinued 250 MG PO Daily April 08, 2018 1:00am October 21, 2018 8:46am Meclizine (12 sources) Antiemetic Meclizine HCl TN N Not-Taking/PRN Meclizine HCl TN N Not-Taking Meclizine HCl TN N Active meloxicam 15 mg oral tablet (13 sources) Nonsteroidal Anti-inflammatory Drug Start: 02-23-2017 End: 07-26-2023 take 15 mg by mouth once daily Meloxicam Discontinued 15 MG PO Daily February 23, 2017 12:00am July 26, 2023 2:57pm methylPREDNISolone 4 mg oral tablet (20 sources) Corticosteroid Start: 03-09-2022 methylPREDNISolone 4 MG as directed Orally daily for 6 days Oct, Not-Taking/PRN Multivitamin With Minerals (Hair,Skin And Nails) Tablet (4 sources) Start: 08-24-2017 End: 10-21-2018 take 1 tablet by mouth once daily Multivitamin With Minerals (Hair,Skin And Nails) Tablet Discontinued 1 TAB PO Daily August 24, 2017 12:00am October 21, 2018 8:46am [place] 3-Qxg-Stp-Fish Oil (Fish Oil) 1,000 mg (120 mg-180 mg) Capsule (4 sources) Start: 02-23-2017 End: 08-24-2017 take 1 capsule by mouth once daily [place] 1-Jfu-Ejq-Fish Oil (Fish Oil) 1,000 mg (120 mg-180 mg) Capsule Discontinued 1 CAP PO Daily February 23, 2017 12:00am August 24, 2017 7:39am [place] Red (4 sources) Start: 04-02-2018 End: 09-28-2022 take 1 tablet by mouth once daily [place] Red Discontinued 1 TAB PO Daily April 02, 2018 1:00am September 28, 2022 7:45am paxlovid (300/100) 20 x 150 mg & 10 x 100mg tablet therapy pack (3 sources) Start: 09-06-2022 take 3 tablets by mouth every twelve hours Paxlovid (300/100) 20 x 150 MG & 10 x 100MG 3 tablets Orally Twice a day for 5 day(s) Aug, Not-Taking/PRN traMADol hydrochloride 50 mg oral tablet (9 sources) Opioid Agonist Start: 09-28-2022 End: 07-26-2023 take 50 mg by mouth once daily Tramadol Discontinued 50 MG PO Daily September 28, 2022 12:00am July 26, 2023 2:57pm Start: 07-04-2022 take 1 tablet by romulo th every twenty-four hours traMADol HCl 50 MG 1 tablet as needed Orally Once a day for 30 days Jun, Active {20 (nirmatrelvir 150 MG Oral Tablet) / 10 (ritonavir 100 MG Oral Tablet) } Pack [Paxlovid 5-Day] (5 sources) Start: 09-06-2022 take 3 tablets by mouth every twelve hours Paxlovid (300/100) 20 x 150 MG & 10 x 100MG 3 tablets Orally Twice a day for 5 day(s) Aug, Not-Taking Payers Date Payer Category Payer Self-pay [id number] 2022 Unknown [id number] 2015 Unknown [id number] 2015 Unknown [id number] 1959 Medicare [id number] [id number] 1959 Self-pay [id number] 1959 Unknown [id number] 2.16.840.1.197570.19 1952 Unknown [id number] 2.16.840.1.261852.3.579.2.1 73 1952 Unknown [id number] 2.16.840.1.503417.3.579.2.1 73 1952 Unknown [id number] 2.16.840.1.427767.3.579.2.5 93 1952 Unknown [id number] 2.16.840.1.929646.3.579.2.5 93 1952 Unknown [id number] 2.16.840.1.121813.3.579.2.5 93 1952 Unknown [id number] 2.16.840.1.001604.3.579.2.5 93 1952 Unknown [id number] 2.16.840.1.033168.3.579.2.5 93 1952 Unknown [id number] 2.16.840.1.463914.3.579.2.1 069 1952 Unknown [id number] 2.16.840.1.593579.3.579.2.1 259 1952 Unknown [id number] 2.16.840.1.786087.3.579.2.1 259 1952 Unknown [id number] 2.16.840.1.205971.3.579.2.1 259 1952 Unknown [id number] 2.16.840.1.537425.3.579.2.1 259 1952 Unknown [id number] 2.16.840.1.629208.3.579.2.1 259 1952 Unknown [id number] 2.16.840.1.646555.3.579.2.1 259 1952 Unknown [id number] 2.16.840.1.033179.3.579.2.1 259 1952 Unknown [id number] 2.16.840.1.405955.3.579.2.1 259 1952 Unknown [id number] 2.16.840.1.592787.3.579.2.1 259 1952 Unknown [id number] 2.16.840.1.083973.3.579.2.1 259 1952 Unknown [id number] 2.16.840.1.940711.3.579.2.1 259 1952 Unknown [id number] 2.16.840.1.087828.3.579.2.1 259 1952 Unknown [id number] 2.16.840.1.457581.3.579.2.1 259 1952 Unknown [id number] 2.16.840.1.754137.3.579.2.1 259 1952 Unknown [id number] 2.16.840.1.441109.3.579.2.1 259 1952 Unknown [id number] 2.16.840.1.425532.3.579.2.1 259 1952 Unknown [id number] 2.16.840.1.517905.3.579.2.1 259 1952 Unknown [id number] 2.16.840.1.214395.3.579.2.1 259 1952 Unknown [id number] 2.16.840.1.801956.3.579.2.1 259 1952 Unknown [id number] 2.16.840.1.446799.3.579.2.1 259 1952 Unknown [id number] 2.16.840.1.923070.3.579.2.1 259 1952 Unknown [id number] 2.16.840.1.617194.3.579.2.1 259 1952 Unknown [id number] 2.16.840.1.302540.3.579.2.1 259 1952 Unknown [id number] 2.16.840.1.550891.3.579.2.1 259 1952 Unknown [id number] 2.16.840.1.662208.3.579.2.1 259 1952 Unknown [id number] 2.16.840.1.519020.3.579.2.1 259 1952 Unknown [id number] 2.16.840.1.949100.3.579.2.1 259 1952 Unknown [id number] 2.16.840.1.936916.3.579.2.1 259 1952 Unknown [id number] 2.16.840.1.076783.3.579.2.1 259 Medicare Medicare-OP No Part B [id number] Unknown Unknown [id number] Unknown [id number] 31 Unknown [id number] 31 Unknown [id number] 31 [employer]er's Compensation [employer] [facility] [id number] Plan of Treatment Date Care Activity Detail Author Start: 09-12-2023 Hepatitis B core antibody measurement [facility] Start: 09-12-2023 [facility] Start: 01-19-2023 Influenza vaccination Influenza Vaccine (#1) [facility] Start: 09-28-2022 [facility] Start: 2017 Pneumococcal Vaccine: 65+ Years (1 - PCV) Pneumococcal Vaccine: 65+ Years (1 - PCV) [facility] Start: 2002 Zoster Vaccines (1 of 2) Zoster Vaccines (1 of 2) [facility] Start: 1992 Screening for malignant neoplasm of breast Mammogram [facility] Start: 1974 DTaP/Tdap/Td Vaccines (1 - Tdap) DTaP/Tdap/Td Vaccines (1 - Tdap) [facility] Start: 1970 Hepatitis C screening Hepatitis C Screening [facility] Start: 1950 COVID-19 Vaccine (#1) COVID-19 Vaccine (#1) [facility] Start: 1950 Lipid panel Lipid Panel [facility] Start: 1950 Screening for malignant neoplasm of colon [facility] Start: 1950 Screening for osteoporosis Bone Density Scan [facility] Start: 1950 Yearly Adult Physical Yearly Adult Physical [facility] Comprehensive metabo lic 1999 panel - Serum or Plasma [facility] Hepatitis B virus jimenez rface Ab [Presence] in Serum [facility] Hepatitis B virus jimenez rface Ag [Presence] in Serum or Plasma by Immunoassay [facility] Hepatitis C virus Ig G Ab [Presence] in Serum or Plasma by Immunoassay [facility] MG Breast - bilatera l Screening [facility] Patient Education Esophageal Dil ation Hiatal Hernia (DC) Stomach Polyps [facility] Work Phone: Rheumatoid factor [Units/volume] in Serum or Plasma [facility] Thyroid stimulating immunoglobulins actual/normal in Serum [facility] XR Hip - left 2 Views [facility] Problems Active Problems Problem Classification Problem Date Documented Da te Episodic/Chronic Abdominal hernia (4 sources) Hiatal hernia; Translations: [Diaphragmatic hernia without obstruction or gangrene] Episodic Complications of surgical procedures or medical care (4 sources) Non-healing surgical wound; Translations: [Other complications of procedures, not elsewhere classified, initial encounter] 08-24-2017 Episodic Esophageal disorders (20 sources) Gastroesophageal reflux disease; Translations: [Gastro-esophageal reflux disease without esophagitis] Chronic Essential hypertension (20 sources) Essential hypertension; Translations: [Essential (primary) hypertension] [...] Translations: [Vitamin D deficiency, unspecified] Chronic Osteoarthritis (16 sources) Osteoarthritis of joint of right shoulder region; Translations: [Primary osteoarthritis, right shoulder] Chronic Osteoporosis (20 sources) Senile osteoporosis; Translations: [Age-related osteoporosis without current pathological fracture] Onset: 3 Chronic Other and unspecified benign neoplasm (8 sources) Benign neoplasm of stomach; Translations: [Polyp of stomach and duodenum] Episodic Other and unspecified benign neoplasm (2 sources) Polyp of stomach and duodenum; Translations: [Polyp of stomach and duodenum] Onset: Episodic Other and unspecified benign neoplasm (1 source) Mass of digestive structure; Translations: [Polyp of stomach and duodenum] 12-21-2022 Episodic Other connective tissue disease (6 sources) Fibromyalgia; Translations: [Fibromyalgia] Episodic Other connective tissue disease (1 source) Unspecified disorder of synovium and tendon, unspecified site Episodic Other connective tissue disease (3 sources) Dupuytren's contracture; Translations: [Palmar fascial fibromatosis [Dupuytren]] 07-30-2023 Episodic Other connective tissue disease (3 sources) Triggering of digit; Translations: [Trigger finger, unspecified finger] 07-30-2023 Episodic Other connective tissue disease (3 sources) Palmar fascial fibromatosis [Dupuytren]; 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] 07-30-2023 Episodic Other connective tissue disease (3 sources) Trigger finger, unspecified finger; Translations: [Trigger finger (acquired)] 07-30-2023 Episodic Other connective tissue disease (1 source) Pain in right hand; Translations: [Pain in right hand] Onset: Episodic Other ear and sense organ disorders (1 source) Impacted cerumen, right ear Episodic Other gastrointestinal disorders (14 sources) Irritable bowel syndrome characterized by constipation; Translations: [Irritable bowel syndrome with constipation] 07-26-2023 Chronic Other gastrointestinal disorders (1 source) Irritable bowel syndrome with constipation Chronic Other gastrointestinal disorders (8 sources) Dysphagia; Translations: [Dysphagia, unspecified] 09-28-2022 Episodic Other gastrointestinal disorders (4 sources) Heartburn; Translations: [Heartburn] Episodic Other gastrointestinal disorders (7 sources) Constipation; Translations: [Constipation, unspecified] Episodic Other inflammatory condition of skin (1 source) Psoriatic arthritis; Translations: [Arthropathic psoriasis, unspecified] 09-18-2023 Chronic Other inflammatory condition of skin (1 source) Seborrheic dermatitis, unspecified Episodic Other nervous system disorders (8 sources) Chronic pain; Translations: [Other chronic pain] Chronic Other nervous system disorders (1 source) Other chronic pain Chronic Other non-traumatic joint disorders (1 source) Pain in right shoulder Episodic Other non-traumatic joint disorders (3 sources) Pain in right hip Episodic Other non-traumatic joint disorders (1 source) Pain in unspecified joint; Translations: [Pain in unspecified joint] Onset: 4 Episodic Other non-traumatic joint disorders (1 source) Hip pain; Translations: [Pain in left hip] 10-12-2023 Episodic Other non-traumatic joint disorders (1 source) Pain in left hip; Translations: [Pain in joint, pelvic region and thigh] 10-12-2023 Episodic Other nutritional; endocrine; and metabolic disorders [...] mass index (BMI) 35.0-35.9, adult Chronic Other nutritional; endocrine; and metabolic disorders (3 sources) Obesity caused by energy imbalance; Translations: [Morbid (severe) obesity due to excess calories] 07-26-2023 Chronic Other screening for suspected conditions (not mental disorders or infectious disease) (11 sources) Encounter for screening mammogram for malignant [...] STATE] Onset: 3 Episodic Residual codes; unclassified (4 sources) Edema of left lower limb; Translations: [Localized edema] 08-24-2017 Episodic Rheumatoid arthritis and related disease (8 sources) Inflammatory polyarthropathy; Translations: [Inflammatory polyarthropathy] Chronic Spondylosis; intervertebral disc disorders; other back problems (20 sources) Lumbar spondylosis; Translations: [Spondylosis without myelopathy or radiculopathy, lumbar region] Chronic Sprains and strains (4 sources) Strain of muscle(s) and tendon(s) of the rotator cuff of right shoulder, subsequent encounter; Translations: [Strain of muscle, fascia and tendon of lower back, initial encounter] Episodic Superficial injury; contusion (5 sources) Contusion of right shoulder, initial encounter; Translations: [Contusion of left hip, initial encounter] Onset: 2 Episodic Thyroid disorders (3 sources) Hypothyroidism; Translations: [Hypothyroidism, unspecified] 07-30-2023 Chronic Past or Other Problems Problem Classification Problem Date Documented Da te Episodic/Chronic Anal and rectal conditions (1 source) Disease of anus and rectum, unspecified; Translations: [DISEASE ANUS AND RECTUM UNSPECIFIED] Onset: 04-04-2022 Episodic Esophageal disorders (2 sources) Esophageal disorders Malaise and fatigue (1 source) Other fatigue; Translations: [OTHER FATIGUE] Onset: 04-04-2022 Episodic Other gastrointestinal disorders (2 sources) Dysphagia, unspecified; Translations: [Dysphagia, unspecified] Onset: 09-28-2022 09-28-2022 Episodic Other skin disorders (4 sources) Localized swelling, mass and lump, trunk; Translations: [LOCALIZD SWELLING MASS AND LUMP TRUNK] Onset: 09-29-2021 Episodic Procedures Date Procedure Procedure Detail Performing Clinician Start: 09-13-2023 Plain X-ray of bilateral hands DO Benjam in Ball Work Phone: Start: 09-13-2023 Plain chest X-ray DO Mckinley Ball Work Phone: Start: 12-12-2022 SURGICAL PATHOLOGY RESULTS Marianne Li MD Work Phone: Start: 12-12-2022 Esophagoscopy flexible transoral ultrasound exam Marianne Li MD Work Phone: Start: 09-28-2022 Esophagogastroduodenoscopy DO Arnoldo Jones use Work Phone: Start: 10-04-2018 Urinalysis microscopic only HARJIT EITCHES Start: 10-04-2018 Urnls dip stick/tablet rgnt auto w/o microscopy HARJIT EITCHES Start: 10-04-2018 Ct abdomen & pelvis w/o contrast material HARJIT EITCHES Start: 10-04-2018 INSERT PERIPHERAL IV HARJIT EITCHES Start: 10-04-2018 Blood count complete auto&auto difrntl wbc HARJIT EITCHES Results Test Name Value Interpretation Reference Range Facility XR chest 2V*on 09-13-2023 XR chest 2V* [facility] Main [place] [address] [place] [address] XRay Report Signed Patient: Lizzy Welsh MR#: [id number] : 1950 Acct:[id number] Age/Sex: 73 / F ADM Date: 09/13/23 Loc: ICXD Room: Type: [facility] Attending Dr: Tano Tsai MD Copies to: Tano Tsai MD Ordering Provider: Tano Tsai MD Date of Service: 09/13/23 XR/XR chest 2V*: immunosuppression XR chest 2V* 09/13/2023 4:00 PM SIGNS AND SYMPTOMS: Bilateral hand pain and swelling, high risk med use PROTOCOL: Frontal and lateral graphs of the chest COMPARISON: None FINDINGS: The trachea is midline. The heart and mediastinal structures are within normal limits. The lung parenchyma is clear. The bony thorax is intact. Degenerative changes are noted in the thoracic spine. There is evidence of previous soft tissue anchoring in the right humeral head. XR/XR chest 2V* IMPRESSION: No acute cardiopulmonary pathology. Impression dictated by: Anny Powell M.D.09/13/2023 5:13 PM Dictation Location: [place] [address] Transcribed By: [facility] 09/13/231712 Dictated By: Anny Powell II, MD 09/13/231711 Signed By: 09/13/231712 Normal [facility] XR hand BI 2Von 09-13-2023 XR hand BI 2V [facility] [place] [address] [place] [address] XRay Report Signed Patient: Lizzy Welsh MR#: [id number] : 1950 Acct:[id number] Age/Sex: 73 / F ADM Date: 09/13/23 Loc: ICXD Room: Type: [facility] Attending Dr: Tano Tsai MD Copies to: Tano Tsai MD Ordering Provider: Tano Tsai MD Date of Service: 09/13/23 XR/XR hand BI 2V: PAIN XR hand BI 2V 09/13/2023 4:00 PM SIGNS AND SYMPTOMS: Bilateral hand pain and swelling PROTOCOL: Frontal and lateral radiograph of the bilateral hands COMPARISON: None FINDINGS: There is significant narrowing of the distal interphalangeal joints with erosive components consistent with erosive osteoarthritis. This is greatest in the second through fourth digits bilaterally. Lesser degrees of joint space loss are noted in the first metacarpal phalangeal joint bilaterally at the first carpometacarpal joint bilaterally. There is accompanying soft tissue swelling within the digits. There is no fracture or dislocation. 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 Lesser degrees of osteoarthritic changes are noted in the thumbs. There is diffuse soft tissue swelling. Impression dictated by: Anny Powell M.D.09/13/2023 5:21 PM Dictation Location: [place] [address] Transcribed By: [facility] 09/13/23 1721 Dictated By: Anny Powell II, MD 09/13/23 1719 Signed By: 09/13/23 1721 Normal [facility] Alanine aminotransferase [En zymatic activity/volume] in Serum or PlasmaOrdered By: Tano Tsai on 09-12-2023 ALT [Catalytic activity/Vol] 18 U/L 7-52 [facility] Albumin [Mass/volume] in Ser um or Plasma by Bromocresol green (BCG) dye binding methoOrdered By: Tano Tsai on 09-12-2023 Albumin BCG dye [Mass/Vol] 4.2 g/dL 3.5-5.7 [facility] Alkaline phosphatase [Enzyma tic activity/volume] in Serum or PlasmaOrdered By: Tano Tsai on 09-12-2023 ALP [Catalytic activity/Vol] 82 U/L 34-104 [facility] Aspartate aminotransferase [ Enzymatic activity/volume] in Serum or PlasmaOrdered By: Tano Tsai on 09-12-2023 AST [Catalytic activity/Vol] 16 U/L 13-39 [facility] Basophils Auto (Bld) [#/Vol] Ordered By: Tano Tsai on 09-12-2023 Basophils (Bld) [#/Vol] 0.1 10*3/uL 0.0-0.2 [facility] Basophils/100 WBC Auto (Bld) Ordered By: Tano Tsai on 09-12-2023 Basophils/100 WBC (Bld) 0.7 % . [facility] Bilirubin.total [Mass/volume ] in Serum or PlasmaOrdered By: Tano Tsai on 09-12-2023 Bilirubin [Mass/Vol] 0.5 mg/dL 0.3-1.0 [facility] C reactive protein [Mass/vol ume] in Serum or PlasmaOrdered By: Tano Tsai on 09-12-2023 CRP [Mass/Vol] 2.1 mg/dL 0.0-0.5 [facility] C-Reactive Proteinon 024 C-Reactive Protein 2.1 mg/dL High 0.0-0.5 [facility] Comment on above: Result Comment: PERF ORMED BY: [place] [address] PATHOLOGIST [employer]CH[employer]ICAL ENGINEER VICENTE MONTEZ M.D. Performed By: #### C MP, ESR, PTH, CBC, CRP #### [place] [address] [place] #### HBCAB, HBSAB, HBSAG, HCV RX PCR #### [facility] , Calcium [Mass/volume] in Ser um or PlasmaOrdered By: Tano Tsai on 09-12-2023 Calcium [Mass/Vol] 9.9 mg/dL 8.6-10.3 [facility] Carbon dioxide, total [Moles /volume] in Serum or PlasmaOrdered By: Tano Tsai on 09-12-2023 CO2 [Moles/Vol] 31.5 mmol/L 21.0-31.0 [facility] Chloride [Moles/volume] in S concha or PlasmaOrdered By: Tano Tsai on 09-12-2023 Chloride [Moles/Vol] 105 mmol/L 98-107 [facility] Complete Blood Count Auto Di ffon 09-12-2023 Basophils (Bld) [#/Vol] 0.1 10*3/uL Normal 0.0-0.2 [facility] Comment on above: Performed By: #### C MP, ESR, PTH, CBC, CRP #### [address] #### HBCAB, HBSAB, HBSAG, HCV RX PCR #### [facility] , Basophils/100 WBC (Bld) 0.7 % Normal . Bobby hendricks [facility] Comment on above: Performed By: #### C MP, ESR, PTH, CBC, CRP #### [place] [address] [place] #### HBCAB, HBSAB, HBSAG, HCV RX PCR #### [facility] , Eosinophils (Bld) [#/Vol] 0.3 10*3/uL Normal 0.0-0.45 [facility] Comment on above: Performed By: #### C MP, ESR, PTH, CBC, CRP #### [place] [address] [place] #### HBCAB, HBSAB, HBSAG, HCV RX PCR #### [facility] , Eosinophils/100 WBC (Bld) 3.3 % Normal . [facility] Comment on above: Performed By: #### C MP, ESR, PTH, CBC, CRP #### [place] [address] [place] #### HBCAB, HBSAB, HBSAG, HCV RX PCR #### [facility] , Erythrocyte distribution width (RBC) [Ratio] 14.8 % Normal 11.9-15.3 [facility] Comment on above: Performed By: #### C MP, ESR, PTH, CBC, CRP #### [address] #### HBCAB, HBSAB, HBSAG, HCV RX PCR #### [facility] , Hematocrit (Bld) [Volume fraction] 40.9 % Normal 34.0-46.4 [facility] Comment on above: Performed By: #### C MP, ESR, PTH, CBC, CRP #### [address] #### HBCAB, HBSAB, HBSAG, HCV RX PCR #### [facility] , Hemoglobin (Bld) [Mass/Vol] 13.2 g/dL Normal 11.8-15.4 [facility] Comment on above: Performed By: #### C MP, ESR, PTH, CBC, CRP #### [address] #### HBCAB, HBSAB, HBSAG, HCV RX PCR #### [facility] , Lymphocytes (Bld) [#/Vol] 1.9 10*3/uL Normal 1.00-4.8 [facility] Comment on above: Performed By: #### C MP, ESR, PTH, CBC, CRP #### [address] #### HBCAB, HBSAB, HBSAG, HCV RX PCR #### [facility] , Lymphocytes/100 WBC (Bld) 21.1 % Normal . [facility] Comment on above: Performed By: #### C MP, ESR, PTH, CBC, CRP #### [address] #### HBCAB, HBSAB, HBSAG, HCV RX PCR #### [facility] , MCH (RBC) [Entitic mass] 27.6 pg Normal 24.7-34.3 [facility] Comment on above: Performed By: #### C MP, ESR, PTH, CBC, CRP #### [address] #### HBCAB, HBSAB, HBSAG, HCV RX PCR #### [facility] , MCV (RBC) [Entitic vol] 85.2 fL Normal 80-100 [facility] Comment on above: Performed By: #### C MP, ESR, PTH, CBC, CRP #### [address] #### HBCAB, HBSAB, HBSAG, HCV RX PCR #### [facility] , Mean Corpuscular HGB Conc 32.4 g/dL Normal 32.0-35.0 [facility] Comment on above: Performed By: #### C MP, ESR, PTH, CBC, CRP #### [address] #### HBCAB, HBSAB, HBSAG, HCV RX PCR #### [facility] , Monocytes (Bld) [#/Vol] 1.0 10*3/uL High 0.0-0.8 [facility] Comment on above: Performed By: #### C MP, ESR, PTH, CBC, CRP #### [address] #### HBCAB, HBSAB, HBSAG, HCV RX PCR #### [facility] , Monocytes/100 WBC (Bld) 10.5 % Normal . [facility] Comment on above: Performed By: #### C MP, ESR, PTH, CBC, CRP #### [address] #### HBCAB, HBSAB, HBSAG, HCV RX PCR #### [facility] , Neutrophils (Bld) [#/Vol] 5.9 10*3/uL Normal 1.8-7.7 [facility] Comment on above: Performed By: #### C MP, ESR, PTH, CBC, CRP #### [address] #### HBCAB, HBSAB, HBSAG, HCV RX PCR #### [facility] , Neutrophils/100 WBC (Bld) 64.4 % Normal . [facility] Comment on above: Performed By: #### C MP, ESR, PTH, CBC, CRP #### [address] #### HBCAB, HBSAB, HBSAG, HCV RX PCR #### [facility] , NRBC% 0.2 /100{WBC} Normal 0-0.5 [facility] Comment on above: Performed By: #### C MP, ESR, PTH, CBC, CRP #### [address] #### HBCAB, HBSAB, HBSAG, HCV RX PCR #### [facility] , Platelet mean volume (Bld) [Entitic vol] 10.3 fL Normal 6.3-10.7 [facility] Comment on above: Performed By: #### C MP, ESR, PTH, CBC, CRP #### [address] #### HBCAB, HBSAB, HBSAG, HCV RX PCR #### [facility] , Platelets (Bld) [#/Vol] 253 10*3/uL Normal 150-450 [facility] Comment on above: Performed By: #### C MP, ESR, PTH, CBC, CRP #### [place] [address] [place] #### HBCAB, HBSAB, HBSAG, HCV RX PCR #### [facility] , RBC (Bld) [#/Vol] 4.80 10*6/uL Normal 3.60-5.00 [facility] Comment on above: Performed By: #### C MP, ESR, PTH, CBC, CRP #### [address] #### HBCAB, HBSAB, HBSAG, HCV RX PCR #### [facility] , WBC (Bld) [#/Vol] 9.2 10*3/uL Normal 3.8-11.6 [facility] Comment on above: Performed By: #### C MP, ESR, PTH, CBC, CRP #### [address] #### HBCAB, HBSAB, HBSAG, HCV RX PCR #### [facility] , Comprehensive Metabolic Pane mayur 09-12-2023 Albumin [Mass/Vol] 4.2 g/dL Normal 3.5-5.7 [facility] Comment on above: Performed By: #### C MP, ESR, PTH, CBC, CRP #### [address] #### HBCAB, HBSAB, HBSAG, HCV RX PCR #### [facility] , Albumin/Globulin [Mass ratio] 1.4 {ratio} Normal [facility] Comment on above: Performed By: #### C MP, ESR, PTH, CBC, CRP #### [address] #### HBCAB, HBSAB, HBSAG, HCV RX PCR #### [facility] , ALP [Catalytic activity/Vol] 82 U/L Normal 34-104 [facility] Comment on above: Performed By: #### C MP, ESR, PTH, CBC, CRP #### [place] [address] [place] #### HBCAB, HBSAB, HBSAG, HCV RX PCR #### [facility] , ALT [Catalytic activity/Vol] 18 U/L Normal 7-52 [facility] Comment on above: Performed By: #### C MP, ESR, PTH, CBC, CRP #### [place] [address] [place] #### HBCAB, HBSAB, HBSAG, HCV RX PCR #### [facility] , Anion gap [Moles/Vol] 9.7 mmol/L Normal 6.0-15.0 [facility] Comment on above: Performed By: #### C MP, ESR, PTH, CBC, CRP #### [place] [address] [place] #### HBCAB, HBSAB, HBSAG, HCV RX PCR #### [facility] , AST [Catalytic activity/Vol] 16 U/L Normal 13-39 [facility] Comment on above: Performed By: #### C MP, ESR, PTH, CBC, CRP #### [address] #### HBCAB, HBSAB, HBSAG, HCV RX PCR #### [facility] , Bilirubin [Mass/Vol] 0.5 mg/dL Normal 0.3-1.0 [facility] Comment on above: Performed By: #### C MP, ESR, PTH, CBC, CRP #### [address] #### HBCAB, HBSAB, HBSAG, HCV RX PCR #### [facility] , Calcium [Mass/Vol] 9.9 mg/dL Normal 8.6-10.3 [facility] Comment on above: Performed By: #### C MP, ESR, PTH, CBC, CRP #### [place] [address] [place] #### HBCAB, HBSAB, HBSAG, HCV RX PCR #### [facility] , Chloride [Moles/Vol] 105 mmol/L Normal 98-107 [facility] Comment on above: Performed By: #### C MP, ESR, PTH, CBC, CRP #### [place] [address] [place] #### HBCAB, HBSAB, HBSAG, HCV RX PCR #### [facility] , CO2 [Moles/Vol] 31.5 mmol/L High 21.0-31.0 [facility] Comment on above: Performed By: #### C MP, ESR, PTH, CBC, CRP #### [place] [address] [place] #### HBCAB, HBSAB, HBSAG, HCV RX PCR #### [facility] , Creatinine [Mass/Vol] 0.74 mg/dL Normal 0.60-1.20 [facility] Comment on above: Performed By: #### C MP, ESR, PTH, CBC, CRP #### [address] #### HBCAB, HBSAB, HBSAG, HCV RX PCR #### [facility] , GFR/1.73 sq M.predicted MDRD (S/P/Bld) [Vol rate/Area] mL/min/{1.73_m2} Normal [facility] Comment on above: Performed By: #### C MP, ESR, PTH, CBC, CRP #### [place] [address] [place] #### HBCAB, HBSAB, HBSAG, HCV RX PCR #### [facility] , Globulin (S) [Mass/Vol] 2.9 g/dL Normal T [facility] Comment on above: Performed By: #### C MP, ESR, PTH, CBC, CRP #### [place] [address] [place] #### HBCAB, HBSAB, HBSAG, HCV RX PCR #### [facility] , Glucose [Mass/Vol] 99 mg/dL Normal 70-100 [facility] Comment on above: Result Comment: [place] Glucose Reference Range is dependent on time and content of last meal. Glucose of more than 200 mg/dL in a nonstressed, ambulatory subject supports the diagnosis of Diabetes Mellitus. ADA recommended reference range Performed By: #### C MP, ESR, PTH, CBC, CRP #### [place] [address] [place] #### HBCAB, HBSAB, HBSAG, HCV RX PCR #### [facility] , Potassium [Moles/Vol] 4.2 mmol/L Normal 3.5-5.1 [facility] Comment on above: Performed By: #### C MP, ESR, PTH, CBC, CRP #### [place] [address] [place] #### HBCAB, HBSAB, HBSAG, HCV RX PCR #### [facility] , Protein [Mass/Vol] 7.1 g/dL Normal 6.4-8.9 [facility] Comment on above: Performed By: #### C MP, ESR, PTH, CBC, CRP #### [place] [address] [place] #### HBCAB, HBSAB, HBSAG, HCV RX PCR #### [facility] , Sodium [Moles/Vol] 142 mmol/L Normal 136-145 [facility] Comment on above: Performed By: #### C MP, ESR, PTH, CBC, CRP #### [address] #### HBCAB, HBSAB, HBSAG, HCV RX PCR #### [facility] , Urea nitrogen [Mass/Vol] 28 mg/dL High 7-25 [facility] Comment on above: Performed By: #### C MP, ESR, PTH, CBC, CRP #### [address] #### HBCAB, HBSAB, HBSAG, HCV RX PCR #### [facility] , Creatinine [Mass/volume] in Serum or PlasmaOrdered By: Tano Tsai on 09-12-2023 Creatinine [Mass/Vol] 0.74 mg/dL 0.60-1.20 [facility] Eosinophils Auto (Bld) [#/Vo l]Ordered By: Tano Tsai on 09-12-2023 Eosinophils (Bld) [#/Vol] 0.3 10*3/uL 0.0-0.45 [facility] Eosinophils/100 WBC Auto (Bl d)Ordered By: Tano Tsai on 09-12-2023 Eosinophils/100 WBC (Bld) 3.3 % . [facility] Erythrocyte Sedimentation Ra lilo 09-12-2023 ESR (Bld) [Velocity] 26 mm/h Normal 0-29 [facility] Comment on above: Result Comment: PERF ORMED BY: [place] [address] PATHOLOGIST PRE SALES TECHNICAL ENGINEER VICENTE MONTEZ M.D. Performed By: #### C MP, ESR, PTH, CBC, CRP #### [place] [address] [place] #### HBCAB, HBSAB, HBSAG, HCV RX PCR #### [facility] , Erythrocyte distribution wid th Auto (RBC) [Ratio]Ordered By: Tano Tsai on 09-12-2023 Erythrocyte distribution width (RBC) [Ratio] 14.8 % 11.9-15.3 [facility] Erythrocyte sedimentation ra te by Photometric methodOrdered By: Tano Tsai on 09-12-2023 ESR Photometric method (Bld) [Velocity] 26 mm/hr 0-29 [facility] Globulin Calc (S) [Mass/Vol] Ordered By: Tano Tsai on 09-12-2023 Globulin (S) [Mass/Vol] 2.9 g/dL [facility] Glucose [Mass/volume] in Ser um or PlasmaOrdered By: Tano Tsai on 09-12-2023 Glucose [Mass/Vol] 99 mg/dL 70-100 [facility] Comment on above: ADA recommended refe rence rangeRandom Glucose Reference Range is dependent on time and content of last meal. Glucose of more than 200 mg/dL in a nonstressed, ambulatory subject supports the diagnosis of Diabetes Mellitus. Hematocrit Auto (Bld) [Volum e fraction]Ordered By: Tano Tsai on 09-12-2023 Hematocrit (Bld) [Volume fraction] 40.9 % 34.0-46.4 [facility] Hemoglobin [Mass/volume] in BloodOrdered By: Tano Tsai on 09-12-2023 Hemoglobin (Bld) [Mass/Vol] 13.2 g/dL 11.8-15.4 [facility] Hep C Ab wRfx to Qnt PCRon 0 09-12-2023 Hepatitis C Virus Antibody Non-Reactive Normal Non Reactive [facility] Comment on above: Performed By: #### C MP, ESR, PTH, CBC, CRP #### [facility] [address] #### HBCAB, HBSAB, HBSAG, HCV RX PCR #### [facility] , Interpretation Hepatitis C Normal . [facility] Comment on above: Result Comment: Not infected with HCV unless early or acute infection is suspected (which may be delayed in an immunocompromised individual), or other evidence exists to indicate HCV infection. Performed By: #### C MP, ESR, PTH, CBC, CRP #### [address] #### HBCAB, HBSAB, HBSAG, HCV RX PCR #### [facility] , Hepatitis B Core Antibodyon 09-12-2023 Hepatitis B Core Antibody Negative Normal Negative [facility] Comment on above: Result Comment: Perf ormed at: - [facility] [id number] Pain Coordinator: Natanael Banegas PhD, Phone: [phone] Performed By: #### C MP, ESR, PTH, CBC, CRP ####[facility]#### HBCAB, HBSAB, HBSAG, HCV RX PCR ####[facility] , Hepatitis B Surface Antibody on 09-12-2023 Hepatitis B Surface Antibody Non-Reactive Normal . [facility] Comment on above: Result Comment: Non Reactive: Inconsistent with immunity, less than 10 mIU/mL Reactive: Consistent with immunity, greater than 9.9 mIU/mL Performed By: #### C MP, ESR, PTH, CBC, CRP #### [facility] [address] #### HBCAB, HBSAB, HBSAG, HCV RX PCR #### [facility] , Hepatitis B Surface Antigeno n 09-12-2023 HBsAg Screen Negative Normal Negative [facility] Comment on above: Result Comment: PERF ORMED BY: [facility] [address] [place] [address] PATHOLOGIST PRE SALES TECHNICAL ENGINEER VICENTE MONTEZ M.D. Performed By: #### C MP, ESR, PTH, CBC, CRP ####[facility] [address]#### HBCAB, HBSAB, HBSAG, HCV RX PCR ####[facility] , Hepatitis B virus surface Ab [Presence] in SerumOrdered By: Tano Tsai on 09-12-2023 HBV surface Ab Ql (S) Non-Reactive . [facility] Comment on above: Non Reactive: Incons istent with immunity, less than 10 mIU/mL Reactive: Consistent with immunity, greater than 9.9 mIU/mL Hepatitis B virus surface Ag [Presence] in Serum or Plasma by ImmunoassayOrdered By: Tano Tsai on 09-12-2023 HBV surface Ag IA Ql Negative Negative [facility] Hepatitis C virus IgG Ab [Pr esence] in Serum or Plasma by ImmunoassayOrdered By: Tano Tsai on 09-12-2023 HCV IgG IA Ql Non-Reactive Non Reactive [facility] Leukocytes [#/volume] correc loan for nucleated erythrocytes in Blood by Automated counOrdered By: Tano Tsai on 09-12-2023 WBC corrected for nucl RBC Auto (Bld) [#/Vol] 9.2 10*3/uL 3.8-11.6 [facility] Lymphocytes Auto (Bld) [#/Vo l]Ordered By: Tano Tsai on 09-12-2023 Lymphocytes (Bld) [#/Vol] 1.9 10*3/uL 1.00-4.8 [facility] Lymphocytes/100 WBC Auto (Bl d)Ordered By: Tano Tsai on 09-12-2023 Lymphocytes/100 WBC (Bld) 21.1 % . [facility] MCH Auto (RBC) [Entitic mass ]Ordered By: Tano Tsai on 09-12-2023 MCH (RBC) [Entitic mass] 27.6 pg 24.7-34.3 [facility] MCHC Auto (RBC) [Mass/Vol]Or dered By: Tano Tsai on 09-12-2023 MCHC (RBC) [Mass/Vol] 32.4 g/dL 32.0-35.0 [facility] MCV Auto (RBC) [Entitic vol] Ordered By: Tano Tsai on 09-12-2023 MCV (RBC) [Entitic vol] 85.2 fL 80-100 [facility] Monocytes Auto (Bld) [#/Vol] Ordered By: Tano Tsai on 09-12-2023 Monocytes (Bld) [#/Vol] 1.0 10*3/uL 0.0-0.8 [facility] Monocytes/100 WBC Auto (Bld) Ordered By: Tano Tsai on 09-12-2023 Monocytes/100 WBC (Bld) 10.5 % . [facility] Neutrophils Auto (Bld) [#/Vo l]Ordered By: Tano Tsai on 09-12-2023 Neutrophils (Bld) [#/Vol] 5.9 10*3/uL 1.8-7.7 [facility] Neutrophils/100 WBC Auto (Bl d)Ordered By: Tano Tsai on 09-12-2023 Neutrophils/100 WBC (Bld) 64.4 % . [facility] No Panel InformationOrdered By: Tano Tsai on 09-12-2023 Estimated GFR (CKD-EPI) > 60.0 mL/Min [facility] Hepatitis B Core Total Antibody Negative Negative [facility] Comment on above: Performed at: [address] [id number] Director: Natanael Banegas PhD, Phone: [phone] Hepatitis C Interpretation See comment . [facility] Comment on above: Not infected with HC V unless early or acute infection issuspected (which may be delayed in an immunocompromisedindividual), or other evidence exists to indicate HCVinfection. Pharmacy Creatinine Clearance (Chem N/A [facility] Nucleated erythrocytes [Pres ence] in Blood by Automated countOrdered By: Tano Tsai on 09-12-2023 Nucleated RBC Auto Ql (Bld) 0.2 /100{WBC} 0-0.5 [facility] Parathyrin.intact [Mass/volu me] in Serum or PlasmaOrdered By: Tano Tsai on 09-12-2023 Parathyrin.intact [Mass/Vol] 34.2 pg/mL [facility] Parathyroid Hormone Intacton 09-12-2023 Parathyroid Hormone Intact 34.2 pg/mL Normal [facility] Comment on above: Result Comment: PERF ORMED BY: [place] [address] PATHOLOGIST PRE SALES TECHNICAL ENGINEER VICENTE MONTEZ M.D. Performed By: #### C MP, ESR, PTH, CBC, CRP #### [address] #### HBCAB, HBSAB, HBSAG, HCV RX PCR #### [facility] , Platelet mean volume Auto (B ld) [Entitic vol]Ordered By: Tano Tsai on 09-12-2023 Platelet mean volume (Bld) [Entitic vol] 10.3 fL 6.3-10.7 [facility] Platelets Auto (Bld) [#/Vol] Ordered By: Tano Tsai on 09-12-2023 Platelets (Bld) [#/Vol] 253 10*3/uL 150-450 [facility] Potassium [Moles/volume] in Serum or PlasmaOrdered By: Tano Tsai on 09-12-2023 Potassium [Moles/Vol] 4.2 mmol/L 3.5-5.1 [facility] Protein [Mass/volume] in Ser um or PlasmaOrdered By: Tano Tsai on 09-12-2023 Protein [Mass/Vol] 7.1 g/dL 6.4-8.9 [facility] RBC Auto (Bld) [#/Vol]Ordere d By: Tano Tsai on 09-12-2023 RBC (Bld) [#/Vol] 4.80 10*6/uL 3.60-5.00 [facility] Serum or plasma albumin/glob ulin mass ratioOrdered By: Tano Tsai on 09-12-2023 Albumin/Globulin [Mass ratio] 1.4 {ratio} [facility] Serum or plasma anion gap de terminationOrdered By: Tano Tsai on 09-12-2023 Anion gap [Moles/Vol] 9.7 mmol/L 6.0-15.0 [facility] Sodium [Moles/volume] in Ser um or PlasmaOrdered By: Tano Tsai on 09-12-2023 Sodium [Moles/Vol] 142 mmol/L 136-145 [facility] Urea nitrogen [Mass/volume] in Serum or PlasmaOrdered By: Tano Tsai on 09-12-2023 Urea nitrogen [Mass/Vol] 28 mg/dL 7-25 [facility] WBC Auto (Bld) [#/Vol]Ordere d By: Tano Tsai on 09-12-2023 WBC (Bld) [#/Vol] 9.2 10*3/uL 3.8-11.6 [facility] Basophils Auto (Bld) [#/Vol] on 08-03-2023 Basophils (Bld) [#/Vol] 0.1 10 3/uL 0.0-0.1 [facility] Basophils/100 WBC Auto (Bld) on 08-03-2023 Basophils/100 WBC (Bld) 0.6 % 0.2-2.0 [facility] Eosinophils/100 WBC Auto (Bl d)on 08-03-2023 Eosinophils/100 WBC (Bld) 3.2 % 0.9-7.0 [facility] Erythrocyte distribution wid th Auto (RBC) [Ratio]on 08-03-2023 Erythrocyte distribution width (RBC) [Ratio] 13.7 % 11.0-15.0 [facility] Estimated glomerular filtrat ion rate (GFR) non- Americanon 08-03-2023 GFR/1.73 sq M.predicted among non-blacks MDRD (S/P/Bld) [Vol rate/Area] mL/min/{1.73_m2} >=60 [facility] Globulin Calc (S) [Mass/Vol] on 08-03-2023 Globulin (S) [Mass/Vol] 3.8 g/dL [facility] Hematocrit Auto (Bld) [Volum e fraction]on 08-03-2023 Hematocrit (Bld) [Volume fraction] 38.0 % 36.0-48.0 [facility] Hemoglobin [Mass/volume] in Bloodon 08-03-2023 Hemoglobin (Bld) [Mass/Vol] 11.9 g/dL 12.0-16.0 [facility] Laboratory - Chemistry and C hemistry - challengeon 08-03-2023 Albumin [Mass/Vol] 3.4 g/dL 3.4-5.0 [facility] ALP [Catalytic activity/Vol] 110 U/L 46-116 [facility] ALT [Catalytic activity/Vol] 21 U/L 14-59 [facility] AST [Catalytic activity/Vol] 18 U/L 15-37 [facility] Bilirubin [Mass/Vol] 0.3 mg/dL 0.2-1.0 [facility] Calcium [Mass/Vol] 8.8 mg/dL 8.5-10.1 [facility] Chloride [Moles/Vol] 103 mmol/L 98-107 [facility] CO2 [Moles/Vol] 32.4 mmol/L 21.0-32.0 [facility] Cobalamin (Vitamin B12) [Mass/Vol] 803.0 pg/mL 193.0-986.0 [facility] Creatinine [Mass/Vol] 0.88 mg/dL 0.55-1.02 [facility] GFR/1.73 sq M.predicted MDRD (S/P/Bld) [Vol rate/Area] mL/min/{1.73_m2} >=60 [facility] Glucose [Mass/Vol] 150 mg/dL 74-106 [facility] Potassium [Moles/Vol] 3.6 mmol/L 3.5-5.1 [facility] Protein [Mass/Vol] 7.2 g/dL 6.4-8.2 [facility] Sodium [Moles/Vol] 143 mmol/L 136-145 [facility] TSH Qn 1.282 m[IU]/L 0.358-3.740 [facility] Urea nitrogen [Mass/Vol] 26.0 mg/dL 7.0-18.0 [facility] Urea nitrogen/Creatinine [Mass ratio] 29.5 mg/mg [facility] Laboratory - Hematology and Cell countson 08-03-2023 Immature granulocytes/100 WBC (Bld) 0.3 % 0.0-0.5 [facility] Leukocytes [#/volume] correc loan for nucleated erythrocytes in Blood by Automated counon 08-03-2023 WBC corrected for nucl RBC Auto (Bld) [#/Vol] 8.8 10 3/uL 4.0-11.0 [facility] Lymphocytes Auto (Bld) [#/Vo l]on 08-03-2023 Lymphocytes (Bld) [#/Vol] 2.0 10 3/uL 1.2-3.8 [facility] Lymphocytes/100 WBC Auto (Bl d)on 08-03-2023 Lymphocytes/100 WBC (Bld) 22.7 % 20.5-60.0 [facility] MCH Auto (RBC) [Entitic mass ]on 08-03-2023 MCH (RBC) [Entitic mass] 27.5 pg 26.7-34.0 [facility] MCHC Auto (RBC) [Mass/Vol]on 08-03-2023 MCHC (RBC) [Mass/Vol] 31.3 g/dL 29.9-35.2 [facility] MCV Auto (RBC) [Entitic vol] on 08-03-2023 MCV (RBC) [Entitic vol] 87.8 fL 81.0-99.0 [facility] Monocytes Auto (Bld) [#/Vol] on 08-03-2023 Monocytes (Bld) [#/Vol] 0.9 10 3/uL 0.3-0.8 [facility] Monocytes/100 WBC Auto (Bld) on 08-03-2023 Monocytes/100 WBC (Bld) 9.9 % 1.7-12.0 [facility] Neutrophils Auto (Bld) [#/Vo l]on 08-03-2023 Neutrophils (Bld) [#/Vol] 5.6 10 3/uL 1.4-6.5 [facility] Neutrophils/100 WBC Auto (Bl d)on 08-03-2023 Neutrophils/100 WBC (Bld) 63.3 % 43.0-75.0 [facility] No Panel Informationon 08-02 C-Reactive Protein, Quantitative 1.82 mg/dL <=0.50 [facility] Eosinophils # (Auto) 0.3 10 3/uL 0.0-0.7 [facility] Immature Granulocyte # (Auto) 0.03 10 3/uL 0.00-0.03 [facility] Platelet mean volume Auto (B ld) [Entitic vol]on 08-03-2023 Platelet mean volume (Bld) [Entitic vol] 11.6 fL 9.5-13.5 [facility] Platelets Auto (Bld) [#/Vol] on 08-03-2023 Platelets (Bld) [#/Vol] 279 10 3/uL 150-450 [facility] RBC Auto (Bld) [#/Vol]on RBC (Bld) [#/Vol] 4.33 10 6/uL 4.20-5.40 [facility] Serum nuclear antibody titer on 08-03-2023 Nuclear Ab (S) [Titer] Negative . [facility] Comment on above: Negative <1:80 Borde rline 1:80 Positive >1:80ICAP nomenclature: AC-0For more information about Hep-2 cell patterns useANApatterns.org, the official website for theInternational Consensus on Antinuclear Antibody (ALFONZO)Patterns (ICAP).Performed at: [facility] [id number] Director: Natanael Banegas PhD, Phone: [phone] Serum or plasma albumin/glob ulin mass ratioon 08-03-2023 Albumin/Globulin [Mass ratio] 0.9 {ratio} [facility] Serum or plasma anion gap de terminationon 08-03-2023 Anion gap [Moles/Vol] 11.2 mmol/L [facility] Serum or plasma cyclic adeno sine monophosphate measurement (moles/volume)on 08-03-2023 Adenosine monophosphate.cyclic [Moles/Vol] 3 units 0-19 [facility] Comment on above: Negative <20 Weak po sitive 20 - 39 Moderate positive 40 - 59 Strong positive >59Performed at: [facility] [id number] [place], [place] [id number] Director: Natanael Banegas PhD, Phone: [phone] MR LUMBAR SPINE W AND WO CON [...] 12/20/2022 Submitting Physician: MARIANNE LI MD Location: [facility] Other External # FINAL DIAGNOSIS A. DUODENAL POLYP, BIOPSY: -- SMALL INTESTINAL MUCOSA DEMONSTRATING DILATED LYMPHATIC VESSELS, NO DYSPLASIA IDENTIFIED. Note: Multiple deeper levels were examined. Electronically Signed Out By ANNY CHU MD/[facility] By the signature on this report, the individual or group listed as making the Final Interpretation/Diagnos is certifies that they have reviewed this case. Diagnostic interpretation performed at [place] [address] Clinical History: Physician Contact Number: [phone] Ischemic Time (A): 09:35 Fixative (A): Formalin Fixative Time (A): 09:35 Clinical Diagnosis History DUODENAL POLYP Specimens Submitted As: A: DUODENAL POLYP BIOPSY Gross Description: Received in formalin, labeled with the patient's name and [facility] number and A, Duodenal polyp biopsy , are two fragments of messer, soft tissue aggregating to 0.9 x 0.2 x 0.2 cm. The specimen is submitted in toto in one cassette. 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 Refer to note in patient chart for documentation of history and physical. Providers: Marianne Li MD (Doctor), Sara Castillo RN (Nurse), Maciel Ferrer, House Supervisor Referring: Marianne Li MD Medicines: See the [...] biopsy result. 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 All rights reserved. The codes documented in this report are preliminary and upon real estate asset manager review may be revised to meet current compliance requirements. Attending Participation: I personally performed the entire procedure. MD Marianne Enamorado MD 12/12/2022 9:49:01 AM This report has been signed electronically. Number of Addenda: 0 Note Initiated On: 12/12/2022 9:15 AM Total Procedure Duration Time 0 hours 21 minutes 39 seconds [facility] Work Phone: Endoscopic Ultrasound (Upper )Ordered By: Marianne Li on 12-12-2022 [facility] Work Phone: No Panel Informationon 12-12 [email or web address]?={[email or web address]} [employer] DO Work Phone: [employer] DO Work Phone: Order Reconciliationon 12-12 Order [...] [facility]on [facility]12[facility]2022 [facility] Surgical Pathology Department Name LIZZY WELSH Pathologist: ANNY CHU MD Date of Procedure: 12/12/2022 Date Received: 12/12/2022 Date Reported 12/20/2022 Submitting Physician: MARIANNE LI MD Location: OR Other External # FINAL DIAGNOSIS A. DUODENAL POLYP, BIOPSY: -- SMALL INTESTINAL MUCOSA DEMONSTRATING DILATED LYMPHATIC VESSELS, NO DYSPLASIA IDENTIFIED. Note: Multiple deeper levels were examined. Electronically Signed Out By ANNY CHU MD/[facility] By the signature on this report, the individual or group listed as making the Final Interpretation/Diagnos is certifies that they have reviewed this case. Diagnostic interpretation performed at [place] [address] Clinical History: Physician Contact Number: [phone] Ischemic Time (A): 09:35 Fixative (A): Formalin [...] is submitted in toto in one cassette. mrs/12/13/2022 [facility] Department of Pathology [address] [place] [address] Normal [facility] Comment on above: Performed By: #### U HCS #### [facility] Surgical Pathology Department [address] [place] [address] Upper EUSon 12-12-2022 Upper EUS PATIENTNAME Patient Name: Lizzy Welsh EXAMDATE Procedure Date: 12/12/2022 9:15 AM PATIENTID PATIENTACCOUNTNUM PATIENTDOB Date of : 1950 ADMITTYPE Admit Type: Outpatient PATIENTROOM Site: [facility] 1 ETHNICITY Ethnicity: Not or RACE Race: White PROVDR Attending MD: Marianne Li MD, [id number] ENDOPROCEDURENAME Procedure: Upper EUS INDICATION Indications: Duodenal mucosal mass/polyp found on endoscopy, 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 Refer to note in patient chart for documentation of history and physical. PRIMARYPROVIDER Providers: Marianne Li MD (Doctor), Sara Castillo RN (Nurse), Maciel Ferrer, House Supervisor EDREFPROVIDER Referring: Marianne Li MD CURRENT_MEDS Medicines: [...] result. 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 All rights reserved. The codes documented in this report are preliminary and upon real estate asset manager review may be revised to meet current compliance requirements. ATTDRPART Attending Participation: I personally performed the entire procedure. SIGNATURENAME MD Marianne Enamorado MD SIGNATUREDATE 12/12/2022 9:49:01 AM SIGNATUREONFILEIND This report has been signed electronically. NUMADDENDA Number of Addenda: 0 INITIATEDON Note Initiated On: 12/12/2022 9:15 AM TOTPROCTIME Total Procedure Duration Time 0 hours 21 minutes 39 seconds Normal [facility] Mayur 09-28-2022 L -- ---- Specimen: [id number] Received: 09/28/22 Status: SALVADOR Halldov Num: [id number] Spec Type: Surgical Subm Dr: Ash Oliveira MD Tissues: A Duodenum - Biopsy (DUODENUM BX) B Esophagus Biopsy (ESOPHABEAL BX) Procedures: HE/4, Gross/Micro L4/2 ---- Age/ Patient Sex Location Account Attending Physician ---- Lizzy Welsh 72/F [id number] Ash Oliveira MD ---- SPEC NUM: [id number] RECD: 09/28/22 STATUS: SALVADOR KLAUS NUM: [id number] ELVA: 09/28/22- [facility] DR: Ash Oliveira MD ENTERED: 09/28/[address]: SPEC TYPE: Surgical DEPT: S ORDERED: HE/4, Gross/Micro [...] Entirely submitted in one cassette labeled C1. ---- ---- Specimen: [id number] Received: 09/28/22 Status: SALVADOR Klaus Num: [id number] Spec Type: Surgical Subm Dr: Ash Oliveira MD Tissues: A Duodenum - Biopsy (DUODENUM BX) B Esophagus Biopsy (ESOPHABEAL BX) Procedures: HE/4, Gross/Micro L4/2 ---- Patient: Lizzy Welsh [id number] (Continued) ---- Signed (signature on file) Baylee Newton MD 09/29/22 1009 Normal [facility] ZAK - TSHon 07-19-2022 TSH 1.271 uIU/mL Normal 0.358-3.740 [facility] Comment on above: Performed By: #### D ATTSH #### [facility] [address] [place] [address] Dr. Gertrudis Peres TSH RANGE SEE BELOW Normal [facility] Comment on above: Result Comment: <0.3 4 UIU/ml HYPERTHYROID 0.34-5.60 UIU/ml EUTHYROID >5.60 UIU/ml HYPOTHYROID Performed By: #### D ATTSH #### [facility] [address] [place] [address] Dr. Gertrudis Peres ZAK - VITAMIN Don 07-19-2022 VIT D 25-OH 26.5 ng/mL Normal [facility] Comment on above: Performed By: #### D ATVITD #### [facility] [address] [place] [address] Dr. Gertrudis Peres VIT D RANGES SEE BELOW Normal [facility] Comment on above: Result Comment: <20 ng/mL Vit D deficient 20 - <30 ng/mL Vit D insufficient 30 - 100 ng/mL Vit D sufficient >100 ng/mL Potential Toxicity Performed By: #### D ATVITD #### [facility] [address] [place] [address] Dr. Gertrudis Peres MG MAMM SCREEN 3D MANDY CADon 06-13-2022 MG MAMM SCREEN 3D MANDY CAD Patient: LIZZY WELSH Exam Date: 06/13/2022 : 1950 Gender:F Ordering : DR MCKINLEY ALFARO D.O. Admission #: [id number] Family : Order #: [id number] CLICK HERE TO VIEW EXAM RADIOLOGY REPORT [...] No Treatments None Family Cancers None LOCATION: [facility] BREAST COMPOSITION: Scattered areas fibroglandular density. [...] Rose M.D. on 06/14/2022 at 11:22 Normal [facility] XR DEXA BONE DENSITYon 06-13 XR DEXA [...] authenticated by: DENNY ROSE Date: 2022-06-13 14:55 Normal [facility] PAP ACOG PANEL 2: 30 to 65on 06-10-2022 . . Normal [facility] Comment on above: Performed By: #### [id number] #### [facility] [address] [place] [address] Dr. Gertrudis Peres Age Gdln ACOG Testing Comment [facility] Comment on above: Result Comment: <21 or >65 or no age provided Performed By: #### 4 [id number] #### [facility] [address] [place] [address] Dr. Gertrudis Peres DIAGNOSIS: Comment [facility] Comment on above: Result Comment: NEGA TIVE FOR INTRAEPITHELIAL LESION OR MALIGNANCY. Performed By: #### [id number] #### [facility] [address] [place] [address] Dr. Gertrudis Peres Methodology: Comment [facility] Comment on above: Result Comment: This liquid based ThinPrep(R) pap test was screened with the use of an image guided system. Performed By: #### [id number] #### [facility] [address] [place] [address] Dr. Gertrudis Peres Note: Comment [facility] Comment on above: Result Comment: The Pap smear is a screening test designed to aid in the detection of premalignant and malignant conditions of the uterine cervix. It is not a diagnostic procedure and should not be used as the sole means of detecting cervical cancer. Both false-positive and false-negative reports do occur. . Performed By: #### [id number] #### [facility] [address] [place] [address] Dr. Gertrudis Peres Performed by: Comment Normal [facility] Comment on above: Result Comment: [employer] (ASCP) Performed By: #### [id number] #### [facility] [address] [address] [address] Gertrudis Peres Specimen adequacy: Comment Normal [facility] Comment on above: Result Comment: Sati sfactory for evaluation. Endocervical and/or squamous metaplastic cells (endocervical component) are present. Performed By: #### [id number] #### [facility] [address] [address] [address] Gertrudis Peres XR HIPS MANDY 5V W PELVISon XR HIPS MANDY 5V W PELVIS EXAM: XR HIPS BI L 5V W PELVIS, XR SHOULDER RT 2V [...] by: NICANOR NAQVI Date: 2022-05-03 16:34 Normal [facility] CBC AUTO DIFFon 03-31-2022 BASO # 0.0 103/ul Normal 0.0-0.1 [facility] Comment on above: Performed By: #### C BC #### [facility] [address] [place] [address] Dr. Gertrudis Peres Basophils/100 WBC (Bld) 0.5 % Normal 0.2-2.0 [facility] Comment on above: Performed By: #### C BC #### [facility] [address] [address] [address] Gertrudis Peres EO # 0.3 103/ul Normal 0.0-0.7 [facility] Comment on above: Performed By: #### C BC #### [facility] [address] [place] [address] Dr. Gertrudis Peres Eosinophils/100 WBC (Bld) 4.3 % Normal 0.9-7.0 [facility] Comment on above: Performed By: #### C BC #### [facility] [address] [place] [address] Dr. Gertrudis Peres Erythrocyte distribution width (RBC) [Ratio] 13.2 % Normal 11.0-15.0 [facility] Comment on above: Performed By: #### C BC #### [facility] [address] [place] [address] Dr. Gertrudis Peres Hematocrit (Bld) [Volume fraction] 37.9 % Normal 36.0-48.0 [facility] Comment on above: Performed By: #### C BC #### [facility] [address] [place] [address] Dr. Gertrudis Peres Hemoglobin (Bld) [Mass/Vol] 12.7 g/dL Normal 12.0-16.0 [facility] Comment on above: Performed By: #### C BC #### [facility] [address] [place] [address] Dr. Gertrudis Peres IG # 0.02 10e3/ul Normal 0.00-0.03 [facility] Comment on above: Performed By: #### C BC #### [facility] [address] [place] [address] Dr. Gertrudis Peres IG % 0.3 % Normal 0.0-0.5 [facility] Comment on above: Performed By: #### C BC #### [facility] [address] [place] [address] Dr. Gertrudis Peres LYMPH # 1.7 103/ul Normal 1.2-3.8 [facility] Comment on above: Performed By: #### C BC #### [facility] [address] [place] [address] Dr. Gertrudis Peres Lymphocytes/100 WBC (Bld) 26.4 % Normal 20.5-60.0 [facility] Comment on above: Performed By: #### C BC #### [facility] [address] [place] [address] Dr. Gertrudis Peres MANUAL DIFF REQ NO Normal [facility] Comment on above: Performed By: #### C BC #### [facility] [address] [place] [address] Dr. Gertrudis Peres MCH (RBC) [Entitic mass] 28.6 pg Normal 26.7-34.0 [facility] Comment on above: Performed By: #### C BC #### [facility] [address] [place] [address] Dr. Gertrudis Peres MCHC (RBC) [Mass/Vol] 33.5 g/dL Normal 29.9-35.2 [facility] Comment on above: Performed By: #### C BC #### [facility] [address] [place] [address] Dr. Gertrudis Peres MCV (RBC) [Entitic vol] 85.4 fL Normal 81.0-99.0 [facility] Comment on above: Performed By: #### C BC #### [facility] [address] [place] [address] Dr. Gertrudis Peres MONO # 0.5 103/ul Normal 0.3-0.8 [facility] Comment on above: Performed By: #### C BC #### [facility] [address] [place] [address] Dr. Gertrudis Peres Monocytes/100 WBC (Bld) 8.1 % Normal 1.7-12.0 [facility] Comment on above: Performed By: #### C BC #### [facility] [address] [place] [address] Dr. Gertrudis Peres NEUT # 3.9 103/ul Normal 1.4-6.5 [facility] Comment on above: Performed By: #### C BC #### [facility] [address] [place] [address] Dr. Gertrudis Peres Neutrophils/100 WBC (Bld) 60.4 % Normal 43.0-75.0 [facility] Comment on above: Performed By: #### C BC #### [facility] [address] [place] [address] Dr. Gertrudis Peres Platelet mean volume (Bld) [Entitic vol] 11.3 fL Normal 9.5-13.5 [facility] Comment on above: Performed By: #### C BC #### [facility] [address] [place] [address] Dr. Gertrudis Peres PLT 215 103/ul Normal 150-450 [facility] Comment on above: Performed By: #### C BC #### [facility] [address] [place] [address] Dr. Gertrudis Peres RBC 4.44 106/ul Normal 4.20-5.40 [facility] Comment on above: Performed By: #### C BC #### [facility] [address] [place] [address] Dr. Gertrudis Peres WBC 6.5 103/ul Normal 4.0-11.0 [facility] Comment on above: Performed By: #### C BC #### [facility] [address] [place] [address] Dr. Gertrudis Peres PROF 14(COMP METB)on 022 Albumin [Mass/Vol] 3.7 g/dL Normal 3.4-5.0 [facility] Comment on above: Performed By: #### C MP #### [facility] [address] [place] [address] Dr. Gertrudis Peres Albumin/Globulin [Mass ratio] 1.1 {ratio} Normal [facility] Comment on above: Performed By: #### C MP #### [facility] [address] [place] [address] Dr. Gertrudis Peres ALP [Catalytic activity/Vol] 112 U/L Normal 46-116 [facility] Comment on above: Performed By: #### C MP #### [facility] [address] [place] [address] Dr. Gertrudis Peres ALT [Catalytic activity/Vol] 23 U/L Normal 14-59 [facility] Comment on above: Performed By: #### C MP #### [facility] [address] [address] [address] Gertrudis Peres Anion gap [Moles/Vol] 7.1 mmol/L Normal [facility] Comment on above: Performed By: #### C MP #### [facility] [address] [address] [address] Gertrudis Peres AST [Catalytic activity/Vol] 18 U/L Normal 15-37 [facility] Comment on above: Performed By: #### C MP #### [facility] [address] [address] [address] Gertrudis Peres Bilirubin [Mass/Vol] 0.4 mg/dL Normal 0.2-1.0 [facility] Comment on above: Performed By: #### C MP #### [facility] [address] [address] [address] Gertrudis Peres Calcium [Mass/Vol] 8.6 mg/dL Normal 8.5-10.1 [facility] Comment on above: Performed By: #### C MP #### [facility] [address] [address] [address] Gertrudis Peres Chloride [Moles/Vol] 105 mmol/L Normal 98-107 [facility] Comment on above: Performed By: #### C MP #### [facility] [address] [address] [address] Gertrudis Peres CO2 [Moles/Vol] 34.0 mmol/L Critically high 21.0-32.0 [facility] Comment on above: Performed By: #### C MP #### [facility] [address] [address] [address] Gertrudis Peres Creatinine [Mass/Vol] 0.80 mg/dL Normal 0.55-1.02 [facility] Comment on above: Performed By: #### C MP #### [facility] [address] [address] [address] Gertrudis Peres EGFR-AF INDONESIAN >60 Normal >=60 [facility] Comment on above: Performed By: #### C MP #### [facility] [address] [address] [address] Gertrudis Peres EGFR-NON AF INDONESIAN >60 Normal >=60 [facility] Comment on above: Performed By: #### C MP #### [facility] [address] [address] [address] Gertrudis Peres Globulin (S) [Mass/Vol] 3.5 g/dL Normal [facility] Comment on above: Performed By: #### C MP #### [facility] [address] [address] [address] Gertrudis ePres Glucose [Mass/Vol] 119 mg/dL Critically high 74-106 [facility] Comment on above: Performed By: #### C MP #### [facility] [address] [place] [address] Dr. Gertrudis Peres Potassium [Moles/Vol] 3.1 mmol/L Critically low 3.5-5.1 [facility] Comment on above: Performed By: #### C MP #### [facility] [address] [place] [address] Dr. Gertrudis Peres Protein [Mass/Vol] 7.2 g/dL Normal 6.4-8.2 [facility] Comment on above: Performed By: #### C MP #### [facility] [address] [place] [address] Dr. Gertrudis Peres Sodium [Moles/Vol] 143 mmol/L Normal 136-145 [facility] Comment on above: Performed By: #### C MP #### [facility] [address] [place] [address] Dr. Gertrudis Peres Urea nitrogen [Mass/Vol] 24.0 mg/dL Critically high 7.0-18.0 [facility] Comment on above: Performed By: #### C MP #### [facility] [address] [place] [address] Dr. Gertrudis Peres Urea nitrogen/Creatinine [Mass ratio] 30.0 mg/mg Normal [facility] Comment on above: Performed By: #### C MP #### [facility] [address] [place] [address] Dr. Gertrudis Peres US SINGLE QUAD UMBILon [...] DENNY ROSE Date: 2021-09-29 14:52 Normal [facility] CBC with Diffon 10-04-2018 Abs. Basophil 0.05 k/uL Normal 0.00-0.20 [facility] Comment on above: Performed By: #### C MPX, CDP #### [facility] [address] [place] [address] Dr[address] [place], [place] [id number] Pain Coordinator: Peter Conklin MD Abs.Imm.Granulocyte <0.03 Normal 0.00-0.30 [facility] Comment on above: Performed By: #### C MPX, CDP #### [address] [place] [address] Pain Coordinator: Peter Conklin MD Abs.Neutrophil (Seg) 4.64 k/uL Normal 1.50-8.10 [facility] Comment on above: Performed By: #### C MPX, CDP #### [facility] [address] [place] [address] Dr. [place], [place] [id number] Pain Coordinator: Peter Conklin MD Auto Diff Performed NOT REPORTED Normal [facility] Comment on above: Performed By: #### C MPX, CDP #### [facility] [address] [place], [place] [phone] Pain Coordinator: Peter Conklin MD Basophils/100 WBC (Bld) 1 % Normal 0-2 [facility] Comment on above: Performed By: #### C MPX, CDP #### [facility] [address] [place], [place] [id number] Pain Coordinator: Peter Conklin MD Eosinophils #/vol (Bld) 0.35 10*3/uL Normal 0.00-0.44 [facility] Comment on above: Performed By: #### C MPX, CDP #### [facility] [address] [place], [place] [phone] Pain Coordinator: Peter Conklin MD Eosinophils/100 WBC (Bld) 4 % Normal 1-4 [facility] Comment on above: Performed By: #### C MPX, CDP #### [facility] [address] [place], [place] [phone] Pain Coordinator: Peter Conklin MD Erythrocyte distribution width Ratio (RBC) 13.8 % Normal 11.8-14.4 [facility] Comment on above: Performed By: #### C MPX, CDP #### [facility] [address] [place], [place] [id number] Pain Coordinator: Peter Conklin MD Hematocrit Volume Fraction (Bld) 44.8 % Normal 36.3-47.1 [facility] Comment on above: Performed By: #### C MPX, CDP #### [facility] [address] [place] [address] Pain Coordinator: Peter Conklin MD Hemoglobin mass conc (Bld) 14.1 g/dL Normal 11.9-15.1 [facility] Comment on above: Performed By: #### C MPX, CDP #### [facility] [address] [place], [place] [phone] Pain Coordinator: Peter Conklin MD Immature granulocytes #/vol (Bld) 0 % Normal 0 [facility] Comment on above: Performed By: #### C MPX, CDP #### [facility] [address] [place] [id number] Pain Coordinator: Peter Conklin MD Lymphocytes #/vol (Bld) 2.23 10*3/uL Normal 1.10-3.70 [facility] Comment on above: Performed By: #### C MPX, CDP #### [facility] [address] [place], [place] [id number] Pain Coordinator: Peter Conklin MD Lymphocytes/100 WBC (Bld) 27 % Normal 24-43 [facility] Comment on above: Performed By: #### C MPX, CDP #### [facility] [address] [place], [place] [phone] Pain Coordinator: Peter Conklin MD MCH Entitic mass (RBC) 27.8 pg Normal 25.2-33.5 [facility] Comment on above: Performed By: #### C MPX, CDP #### [facility] [address] [place], [facility] Pain Coordinator: Peter Conklin MD MCHC mass conc (RBC) 31.5 g/dL Normal 28.4-34.8 [facility] Comment on above: Performed By: #### C MPX, CDP #### [facility] [address] [place], [place] [phone] Pain Coordinator: Peter Conklin MD MCV Entitic volume (RBC) 88.4 fL Normal 82.6-102.9 [facility] Comment on above: Performed By: #### C MPX, CDP #### [facility] [address] [place], [place] [phone] Pain Coordinator: Peter Conklin MD Monocytes #/vol (Bld) 0.84 10*3/uL Normal 0.10-1.20 [facility] Comment on above: Performed By: #### C MPX, CDP #### [facility] [address] [place], [place] [phone] Pain Coordinator: Peter Conklin MD Monocytes/100 WBC (Bld) 10 % Normal 3-12 [facility] Comment on above: Performed By: #### C MPX, CDP #### [facility] [address] [place], [place] [phone] Pain Coordinator: Peter Conklin MD Neutrophil (Seg) 58 % Normal 36-65 [facility] Comment on above: Performed By: #### C MPX, CDP #### [facility] [address] [place], [place] [phone] Pain Coordinator: Peter Conklin MD NRBC Automated 0.0 per 100 WBC Normal 0.0 [facility] Comment on above: Performed By: #### C MPX, CDP #### [facility] [address] [place], [place] [phone] Pain Coordinator: Peter Conklin MD Platelet mean volume Entitic volume (Bld) 11.7 fL Normal 8.1-13.5 [facility] Comment on above: Performed By: #### C MPX, CDP #### [facility] [address] [place], [place] [address]83 Pain Coordinator: Peter Conklin MD Platelets #/vol (Bld) NOT REPORTED Normal [facility] Comment on above: Performed By: #### C MPX, CDP #### [facility] [address] [place] [address] Pain Coordinator: Peter Conklin MD Platelets #/vol (Bld) 269 10*3/uL Normal 138-453 [facility] Comment on above: Performed By: #### C MPX, CDP #### [facility] [address] [place], [place] [phone] Pain Coordinator: Peter Conklin MD RBC #/vol (Bld) 5.07 10*6/uL Normal 3.95-5.11 [facility] Comment on above: Performed By: #### C MPX, CDP #### [facility] [address] [place], [place] [phone] Pain Coordinator: Peter Conklin MD RBC morphology finding Nom (Bld) NOT REPORTED Normal [facility] Comment on above: Performed By: #### C MPX, CDP #### [facility] [address] [place], [place] [id number] Pain Coordinator: Peter Conklin MD WBC #/vol (Bld) 8.1 10*3/uL Normal 3.5-11.3 [facility] Comment on above: Performed By: #### C MPX, CDP #### [facility] [address] [place], [place] [phone] Pain Coordinator: Peter Conklin MD WBC Morphology NOT REPORTED Normal [facility] Comment on above: Performed By: #### C MPX, CDP #### [facility] [address] [place], [place] [phone] Pain Coordinator: Peter Conklin MD CT ABDOMEN PELVIS WO [...] The pelvic organs demonstrate no acute abnormality. Peritoneum/Retroperito neum: The abdominal aorta is normal in caliber. [...] Sushant Dobbs MD 10/04/18 Final result Normal [facility] Comp Metabolic Pr/rfx MGon 0 10-04-2018 (cont.) Normal [facility] Comment on above: Result Comment: Aver age GFR for 60-69 years old: 85 mL/min/1.73sq m Chronic Kidney Disease: <60 mL/min/1.73sq m Kidney failure: <15 mL/min/1.73sq m eGFR calculated using average adult body mass. Additional eGFR calculator available at: http://www.[employer].myCampusTutors/multiple_crcl_2012.htm Performed By: #### C MPX, CDP #### [facility] [address] [place] [address] Pain Coordinator: Peter Conklin MD Albumin mass conc 4.3 g/dL Normal 3.5-5.2 [facility] Comment on above: Performed By: #### C MPX, CDP #### [facility] [address] [place] [address] Pain Coordinator: Peter Conklin MD Albumin/Globulin mass ratio 1.2 {ratio} Normal 1.0-2.5 [facility] Comment on above: Performed By: #### C MPX, CDP #### [facility] [address] [place] [address] Pain Coordinator: Peter Conklin MD Alkaline Phos 184 U/L High 35-104 [facility] Comment on above: Performed By: #### C MPX, CDP #### [facility] [address] [place], [place] [phone] Pain Coordinator: Peter Conklin MD ALT enzyme act/vol 16 U/L Normal 5-33 [facility] Comment on above: Performed By: #### C MPX, CDP #### [facility] [address] [place], [place] [phone] Pain Coordinator: Peter Conklin MD Anion gap molar conc 13 mmol/L Normal 9-17 [facility] Comment on above: Performed By: #### C MPX, CDP #### [facility] [address] [place], [place] [phone] Pain Coordinator: Peter Conklin MD AST enzyme act/vol 20 U/L Normal <32 [facility] Comment on above: Performed By: #### C MPX, CDP #### [facility] [address] [place], [place] [phone] Pain Coordinator: Peter Conklin MD Bilirubin Ql (U) 0.36 mg/dL Normal 0.3-1.2 [facility] Comment on above: Performed By: #### C MPX, CDP #### [facility] [address] [place], [place] [phone] Pain Coordinator: Peter Conklin MD BUN/CRE Ratio 53 High 9-20 [facility] Comment on above: Performed By: #### C MPX, CDP #### [facility] [address] [place], [place] [phone] Pain Coordinator: Peter Conklin MD Calcium mass conc 9.2 mg/dL Normal 8.6-10.4 [facility] Comment on above: Performed By: #### C MPX, CDP #### [facility] [address] [place], [place] [address]83 Pain Coordinator: Peter Conklin MD Chloride molar conc 103 mmol/L Normal 98-107 [facility] Comment on above: Performed By: #### C MPX, CDP #### [facility] [address] [place] [address] Pain Coordinator: Peter Conklin MD CO2 molar conc 25 mmol/L Normal 20-31 [facility] Comment on above: Performed By: #### C MPX, CDP #### [facility] [address] [place], [place] [phone] Pain Coordinator: Peter Conklin MD Creatinine mass conc 0.60 mg/dL Normal 0.50-0.90 [facility] Comment on above: Performed By: #### C MPX, CDP #### [facility] [address] [place], [place] [phone] Pain Coordinator: Peter Conklin MD GFR, Amer >60 Normal >60 [facility] Comment on above: Performed By: #### C MPX, CDP #### [facility] [address] [place], [place] [phone] Pain Coordinator: Peter Conklin MD GFR,non Amer >60 Normal >60 [facility] Comment on above: Performed By: #### C MPX, CDP #### [facility] [address] [place], [place] [phone] Pain Coordinator: Peter Conklin MD Glucose mass conc 123 mg/dL High 70-99 [facility] Comment on above: Performed By: #### C MPX, CDP #### [facility] [address] [place], [place] [phone] Pain Coordinator: Peter Conklin MD Potassium molar conc 4.0 mmol/L Normal 3.7-5.3 [facility] Comment on above: Performed By: #### C MPX, CDP #### [facility] [address] [place], [place] [phone] Pain Coordinator: Peter Conklin MD Protein mass conc 7.8 g/dL Normal 6.4-8.3 [facility] Comment on above: Performed By: #### C MPX, CDP #### [facility] [address] [place], [place] [phone] Pain Coordinator: Peter Conklin MD Sodium molar conc 141 mmol/L Normal 135-144 [facility] Comment on above: Performed By: #### C MPX, CDP #### [facility] [address] [place], [place] [id number] Pain Coordinator: Peter Conklin MD Staging: Normal [facility] Comment on above: Result Comment: Stag e 1: Some kidney damage normal GFR Stage 2: Mild kidney damage GFR 60-89 Stage 3: Moderate kidney damage GFR 30-59 Stage 4: Severe kidney damage GFR 15-29 Stage 5: Severe kidney damage GFR <15 ESRD - chronic treatment by dialysis or transplant Performed By: #### C MPX, CDP #### [facility] [address] [place], [place] [id number] Pain Coordinator: Peter Conklin MD Urea nitrogen mass conc 32 mg/dL High 8-23 [facility] Comment on above: Performed By: #### C MPX, CDP #### [facility] [address] [place], [place] [id number] Pain Coordinator: Peter Conklin MD Urinalysis, Routineon 2018 Acetoacetic Acid,Ur Negative Normal NEG [facility] Comment on above: Performed By: #### U A, UMICAO #### [facility] [address] [place], [place] [id number] Pain Coordinator: Peter Conklin MD Bilirubin, SemiQt,Ur Negative Normal NEG [facility] Comment on above: Performed By: #### U A, UMICAO #### [facility] [address] [place], [place] [id number] Pain Coordinator: Peter Conklin MD Color Nom (U) YELLOW Normal YEL [facility] Comment on above: Performed By: #### U A, UMICAO #### [facility] [address] [place], [place] [address] Pain Coordinator: Peter Conklin MD Comment NOT REPORTED Normal [facility] Comment on above: Performed By: #### U A, UMICAO #### [facility] [address] [place] [address] Pain Coordinator: Peter Conklin MD Glucose,Semi-qnt,Ur Negative Normal NEG [facility] Comment on above: Performed By: #### U A, UMICAO #### [facility] [address] [place] [address] [place] [place], [place] [phone] Pain Coordinator: Peter Conklin MD Hemoglobin, Ur 3+ Abnormal NEG [facility] Comment on above: Performed By: #### U A, UMICAO #### [facility] [address] [place] [address] [place] [address] Pain Coordinator: Peter Conklin MD Leuckocyte Esterase SMALL Abnormal NEG [facility] Comment on above: Performed By: #### U A, UMICAO #### [facility] [address] [place] [address] [place] [address] Pain Coordinator: Peter Conklin MD Nitrite,Ur Negative Normal [facility] Comment on above: Performed By: #### U A, UMICAO #### [facility] [address] [place] [address] Pain Coordinator: Peter Conklin MD PH,Ur 5.5 Normal 5.0-9.0 [facility] Comment on above: Performed By: #### U A, UMICAO #### [facility] [address] [place] [address] Pain Coordinator: Peter Conklin MD Protein mass conc (U) TRACE Abnormal NEG [facility] Comment on above: Performed By: #### U A, UMICAO #### [facility] [address] [place] [address] Pain Coordinator: Peter Conklin MD Spec. [place],Ur >1.030 High 1.010-1.020 [facility] Comment on above: Performed By: #### U A, UMICAO #### [facility] [address] [place] [address] Pain Coordinator: Peter Conklin MD Turbidity SLIGHTLY CLOUDY Abnormal CLEAR [facility] Comment on above: Performed By: #### U A, UMICAO #### [facility] [address] [place] [address] Pain Coordinator: Peter Conklin MD Urobilinogen,Ur Normal Normal NORM [facility] Comment on above: Performed By: #### U A, UMICAO #### [facility] [address] [place] [address] [address] [place], [place] [address] Pain Coordinator: Peter Conklin MD Urinalysis,Microon 9 ----- Normal [facility] Comment on above: Performed By: #### U A, UMICAO #### [address] [place] [address] Pain Coordinator: Peter Conklin MD Amorphous sediment LM Ql (Urine sed) NOT REPORTED Normal [facility] Comment on above: Performed By: #### U A, UMICAO #### [facility] [address] [place] [address] Pain Coordinator: Peter Conklin MD Bacteria LM.HPF #/area (Urine sed) TRACE Abnormal [facility] Comment on above: Performed By: #### U A, UMICAO #### [facility] [address] [place] [address] Pain Coordinator: Peter Conklin MD Casts LM.LPF #/area (Urine sed) NOT REPORTED Normal [facility] Comment on above: Performed By: #### U A, UMICAO #### [facility] [address] [place] [address] Pain Coordinator: Peter Conklin MD Crystals LM Nom (Urine sed) NOT REPORTED Normal [facility] Comment on above: Performed By: #### U A, UMICAO #### [facility] [address] [place] [address] Pain Coordinator: Peter Conklin MD Epithelial cells LM.HPF #/area (Urine sed) 2 TO 5 Normal 0-25 [facility] Comment on above: Performed By: #### U A, UMICAO #### [facility] [address] [place] [address] Pain Coordinator: Peter Conklin MD Epithelial, Renal NOT REPORTED Normal 0 [facility] Comment on above: Performed By: #### U A, UMICAO #### [facility] [address] [place] [address] Pain Coordinator: Peter Conklin MD Mucus Strands TRACE Abnormal [facility] Comment on above: Performed By: #### U A, UMICAO #### [facility] [address] [place] [address] Pain Coordinator: Peter Conklin MD Other Observations NOT REPORTED Normal [facility] Comment on above: Performed By: #### U A, UMICAO #### [facility] [address] [place] [address] Pain Coordinator: Peter Conklin MD RBC #/vol (U) 50 TO 100 Normal 0-2 [facility] Comment on above: Performed By: #### U A, UMICAO #### [facility] [address] [place] [address] Pain Coordinator: Peter Conklin MD Trichomonas NOT REPORTED Normal NONE [facility] Comment on above: Performed By: #### U A, UMICAO #### [facility] [address] [place] [address] Pain Coordinator: Peter Conklin MD WBC #/vol (U) 2 TO 5 Normal 0-5 [facility] Comment on above: Performed By: #### U A, UMICAO #### [facility] [address] [place], [place] [phone] Pain Coordinator: Peter Conklin MD Yeast LM Ql (Urine sed) NOT REPORTED Normal NONE [facility] Comment on above: Performed By: #### U A, UMICAO #### [facility] [address] [place] [address] Pain Coordinator: Peter Conklin MD Social History Date Type Detail Facility Start: 09-28-2022 Tobacco smoking status MIIS Never smoked tobacco (finding) [facility] Start: 1950 Sex Assigned At Female F [facility] Start: 1950 Sex Assigned At Not on file [facility] Work Phone: Unknown if ever smoked [facility] Other Sex Assigned At [facility] Other Tobacco smoking status [facility] Tobacco smoking consumption unknown [facility] Work Phone: Vital Signs Date Time Vital Sign Value Performing Clinician Facility 10-12-2023 09:18-040 Body height 160.02 cm DO Mckinley Ball Work Phone: [facility] 10-12-2023 09:18-0400 Body mass index (BMI) [Ratio] 37 kg/m2 DO Mckinley [employer] Work Phone: [facility] 10-12-2023 09:18-0400 Body weight 94.85 kg DO Mckinley Ball Work Phone: [facility] 10-12-2023 09:18-0400 Diastolic blood pressure 77 mm[Hg] DO Mckinley Ball Work Phone: [facility] 10-12-2023 09:18-0400 Heart rate 77 /min DO Mckinley Ball Work Phone: [facility] 10-12-2023 09:18-0400 Respiratory rate 12 /min DO Mckinley Ball Work Phone: [facility] 10-12-2023 09:18-0400 Systolic blood pressure 148 mm[Hg] DO Mckinley Ball Work Phone: [facility] 07-30-2023 15:01-0400 Body height 160.02 cm DO Mckinley Ball Work Phone: [facility] 07-30-2023 15:01-0400 Body mass index (BMI) [Ratio] 36.6 kg/m2 DO Mckinley Ball Work Phone: [facility] 07-30-2023 15:01-0400 Body weight 93.66 kg DO Mckinley Ball Work Phone: [facility] 07-30-2023 15:01-0400 Diastolic blood pressure 90 mm[Hg] DO Mckinley Ball Work Phone: [facility] 07-30-2023 15:01-0400 Heart rate 75 /min DO Mckinley Ball Work Phone: [facility] 07-30-2023 15:01-0400 Systolic blood pressure 149 mm[Hg] DO Mckinley Ball Work Phone: [facility] 06-13-2023 09:00-0500 Body height 161.29 cm Mckinley Ball Other [facility] Other 06-13-2023 09:00-0500 Body mass index (BMI) [Ratio] 35.43 kg/m2 Mckinley Ball Other [facility] Other 06-13-2023 09:00-0500 Body weight 92.17 kg Mckinley Ball Other [employer] Other 06-13-2023 09:00-0500 Diastolic blood pressure 77 mm[Hg] Mckinley Ball Other [employer] Other 06-13-2023 09:00-0500 Respiratory rate 12 /min Mckinley Ball Other [employer] Other 06-13-2023 09:00-0500 Systolic blood pressure 127 mm[Hg] Mckinley Ball Other [employer] Other 05-03-2023 08:30-0500 Body height 161.29 cm Mckinley Ball Other [employer] Other 05-03-2023 08:30-0500 Body mass index (BMI) [Ratio] 35.39 kg/m2 Mckinley Ball Other [employer] Other 05-03-2023 08:30-0500 Body weight 92.08 kg Mckinley Ball Other [employer] Other 05-03-2023 08:30-0500 Diastolic blood pressure 79 mm[Hg] Mckinley Ball Other [employer] Other 05-03-2023 08:30-0500 Respiratory rate 12 /min Mckinley Ball Other [employer] Other 05-03-2023 08:30-0500 Systolic blood pressure 133 mm[Hg] Mckinley Ball Other [employer] Other 03-08-2023 09:30-0400 Body height 161.29 cm Mckinley Ball Other [employer] Other 03-08-2023 09:30-0400 Body mass index (BMI) [Ratio] 35.01 kg/m2 Mckinley Ball Other [employer] Other 03-08-2023 09:30-0400 Body weight 91.08 kg Mckinley Ball Other [employer] Other 03-08-2023 09:30-0400 Diastolic blood pressure 83 mm[Hg] Mckinley Ball Other [employer] Other 03-08-2023 09:30-0400 Respiratory rate 12 /min Mckinley Ball Other [employer] Other 03-08-2023 09:30-0400 Systolic blood pressure 134 mm[Hg] Mckinley Ball Other [employer] Other 01-04-2023 11:30-0400 Body height 161.29 cm Mckinley Ball Other [employer] Other 01-04-2023 11:30-0400 Body mass index (BMI) [Ratio] 34.69 kg/m2 Mckinley Ball Other [employer] Other 01-04-2023 11:30-0400 Body weight 90.27 kg Mckinley Ball Other [employer] Other 01-04-2023 11:30-0400 Diastolic blood pressure 81 mm[Hg] Mckinley Ball Other [employer] Other 01-04-2023 11:30-0400 Respiratory rate 12 /min Mckinley Ball Other [employer] Other 01-04-2023 11:30-0400 Systolic blood pressure 131 mm[Hg] Mckinley Ball Other [employer] Other 12-12-2022 07:50-0400 Body height 153.1 cm Marianne Li MD Work Phone: [facility] 12-12-2022 07:50-0400 Body mass index (BMI) [Ratio] 38.4 kg/m2 Marianne Li MD Work Phone: [facility] 12-12-2022 07:50-0400 Body weight 90 kg Marianne Li MD Work Phone: [facility] 11-01-2022 14:30-0400 Body height 161.29 cm Keara Bullard Other [employer] Other 11-01-2022 14:30-0400 Body mass index (BMI) [Ratio] 35.22 kg/m2 Keara Bullard Other [employer] Other 11-01-2022 14:30-0400 Body weight 91.63 kg Keara Bullard Other [employer] Other 11-01-2022 14:30-0400 Diastolic blood pressure 84 mm[Hg] Keara Bullard Other [employer] Other 11-01-2022 14:30-0400 Systolic blood pressure 130 mm[Hg] Keara Bullard Other [employer] Other 09-28-2022 10:05-0400 Diastolic blood pressure 75 mm[Hg] DO [employer] Work Phone: [facility] 09-28-2022 10:05-0400 Heart rate 60 /min DO [employer] Work Phone: [facility] 09-28-2022 10:05-0400 Respiratory rate 16 /min DO [employer] Work Phone: [facility] 09-28-2022 10:05-0400 SaO2% (BldA) [Mass fraction] 98 % DO [employer] Work Phone: [facility] 09-28-2022 10:05-0400 Systolic blood pressure 153 mm[Hg] DO Arnoldo Nixon Work Phone: [facility] 09-28-2022 07:48-0400 Body height 160.02 cm DO Arnoldo Nixon Work Phone: [facility] 09-28-2022 07:48-0400 Body temperature 98.9 [degF] DO Arnoldo Nixon Work Phone: [facility] 09-28-2022 07:48-0400 Body weight 93.89 kg DO Arnoldo Nixon Work Phone: [facility] 07-04-2022 09:30-0500 Body height 161.29 cm Mckinley Ball Other [employer] Other 07-04-2022 09:30-0500 Body mass index (BMI) [Ratio] 36.3 kg/m2 Mckinley Ball Other [employer] Other 07-04-2022 09:30-0500 Body weight 94.44 kg Mckinley Ball Other [employer] Other 07-04-2022 09:30-0500 Diastolic blood pressure 78 mm[Hg] Mckinley Ball Other [employer] Other 07-04-2022 09:30-0500 Respiratory rate 12 /min Mckinley Ball Other [employer] Other 07-04-2022 09:30-0500 Systolic blood pressure 122 mm[Hg] Mckinley Ball Other [employer] Other 03-09-2022 15:30-0400 Body height 161.29 cm Arabella Arechiga Other [employer] Other 03-09-2022 15:30-0400 Body mass index (BMI) [Ratio] 36.79 kg/m2 Arabella Arechiga Other [employer] Other 03-09-2022 15:30-0400 Body temperature 97.1 [degF] Arabella Arechiga Other [employer] Other 03-09-2022 15:30-0400 Body weight 95.71 kg Arabella Arechiga Other [employer] Other 03-09-2022 15:30-0400 Diastolic blood pressure 85 mm[Hg] Arabella Arechiga Other [employer] Other 03-09-2022 15:30-0400 Respiratory rate 18 /min Arabella Arechiga Other [employer] Other 03-09-2022 15:30-0400 SaO2% (BldA) [Mass fraction] 99 % Arabella Arechiga Other [employer] Other 03-09-2022 15:30-0400 Systolic blood pressure 135 mm[Hg] Arabella Arechiga Other [employer] Other Clinical Notes 03-09-2022 to 06-13-2023 Note Date [...] Orthopedics w/ increased pain or trigger finger [employer] Other 12-14-2023 Evaluation note* Encounter Date Diagnosis [...] index [BMI] 35.0-35.9, adult (ICD-10 - Z68.35) [employer] Other 10-19-2023 Evaluation note* Encounter Date Diagnosis [...] to r/o fracture Continue Mobic and add Drummond for now. Consider PT if XR negative Feb, Right hip pain (ICD-10 - M25.551) XR to determine degree of arthritis and r/o fx. ROM exercises COntinue Mobic and add Drummond for now. Feb, Seborrheic dermatitis (ICD-10 - [...] index [BMI] 35.0-35.9, adult (ICD-10 - Z68.35) [employer] Other 08-17-2023 Evaluation note* Encounter Date Diagnosis [...] also instructed to stop Mobic and start Drummond, 7 days prior to her procedure. Dec, Gastroesophageal reflux disease with esophagitis without hemorrhage (ICD-10 - K21.00) Stable, continue medication w/o interruption Dec, Traumatic complete tear of right rotator cuff, subsequent encounter (ICD-10 - S46.011D) Scheduled for arthroscopic repair w/ Dr. Hong. 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 Refer to note in patient chart for documentation of history and physical. Providers: Marianne Li MD (Doctor), Sara Castillo RN (Nurse), Maciel Ferrer, House Supervisor Referring: Marianne Li MD Medicines: See the [...] biopsy result. 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 Discussed options of treatment due to pt leaving for [place] on Sunday. SHe is agreeable to kenalog [...] Oct, Right hip pain (ICD-10 - M25.551) [employer] Other [facility]* Encounter Date Diagnosis Assessment Notes [...] exercise for 30 minutes, 3-5 times weekly. [employer] Other 10-20-2022 Evaluation note* Encounter Date Diagnosis [...] with primary care provider to discuss reaction. [employer] Other Evaluation [facility]No [employer] Other Evaluation note* Diagnosis Onset Date Resolution Status Dysphagia acute [facility] Work Phone: Evaluation note* Diagnosis Polyp of stomach and duodenum documented in this encounter [facility] Work Phone: Evaluation note* Diagnosis Onset Date Resolution Status Age-related osteoporosis wit hout current pathological fracture acute Dupuytren's contracture of right hand acute GERD (gastroesophageal reflux disease) acute Hypertension acute Inflammatory polyarthritis a cute Lumbar spondylosis acute Trigger finger acute Medicare annual wellness visit, subsequent noneactive Screening mammogram for breast cancer noneactive [facility] Work Phone: Evaluation note* Diagnosis Onset Date Resolution Status Age-related osteoporosis wit hout current pathological fracture acute Dupuytren's contracture of right hand acute GERD (gastroesophageal reflux disease) acute Hypertension acute Inflammatory polyarthritis a cute Lumbar spondylosis acute Trigger finger acute Medicare annual wellness visit, subsequent noneactive Screening mammogram for breast cancer noneactive Left hip pain acute Primary osteoarthritis of hip acute Strain of hip and thigh acut e [facility] Work Phone: History general Narrative - Reported* Type Description Date Medical History Hypertension Medical History Acid reflux Medical History Hiatal hernia Surgical History back surgery x3 Surgical History Neck Surgery Surgical History shoulder arthroscopy Surgical History hysterectomy Surgical History cholecystectomy Hospitalization History see above [employer] Other Hiscsml general Narrative - Reported* Type Description Date Medical History Hypertension Medical History Acid reflux Medical History Hiatal hernia Surgical History back surgery x3 Surgical History Neck Surgery Surgical History shoulder arthroscopy Surgical History hysterectomy Surgical History cholecystectomy Surgical History EGD w/ bx and dilatation 09/2022 Hospitalization History see above [employer] Other Hisllqu general Narrative - Reported* Type Description Date Medical History Hypertension Medical History Acid reflux Medical History Hiatal hernia Surgical History back surgery x3 Surgical History Neck Surgery Surgical History shoulder arthroscopy Surgical History hysterectomy Surgical History cholecystectomy Surgical History EGD w/ bx and dilatation 09/2022 Surgical History Right shoulder arthroscopy 02/07 23 Hospitalization History see above [employer] Other Hiseoux general Narrative - Reported* Type Description Date Medical History Hypertension Medical History Acid reflux Medical History Hiatal hernia Surgical History back surgery x3 Surgical History Neck Surgery Surgical History shoulder arthroscopy Surgical History hysterectomy Surgical History cholecystectomy Surgical History EGD w/ bx and dilatation 09/2022 Surgical History Right shoulder arthroscopy 02/07 23 Surgical History Endoscopic US 11/2022 Hospitalization History see above [employer] Other Hospital Discharge instructions Additional Instructions DISCHARGE [...] if you have any problems. -Office number [phone] Work [facility]: Summary Purpose Family History Relationship Condition Age at Onset Recorded Date/T ricardo father History of coronary artery bypass surgery Unknown Diabetes mellitus Unknown Dementia Unknown Not Specified Hypertension Unknown Myocardial infarction Unknown sister Diabetes mellitus Unknown Relationship Condition Age at Onset Recorded Date/T ricardo father History of coronary artery bypass surgery Unknown Diabetes mellitus Unknown Dementia Unknown Not Specified Hypertension Unknown Myocardial infarction Unknown sister Diabetes mellitus Unknown father Heart disease Unknown family member Family history of colon cancer Unknown Not Specified Heart disease Unknown Advance Directives Advance Directive Response Recorded Date/ Time Advance Directives No February 22, 2017 9:37am Chief Complaint and Reason for Visit Chief Complaint Gerd, West's Esop hagus Reason for Visit Dysphagia Chief Complaint Medicare Wellness Reason for Visit Age-related osteopor osis without current pathological fracture Dupuytren's contracture of right hand GERD (gastroesophageal reflux disease) Hypertension Inflammatory polyarthritis Lumbar spondylosis Trigger finger Medicare annual wellness visit, subsequent Screening mammogram for breast cancer Chief Complaint Medicare Wellness M25.50 M89.9 Z79.899 Z11.59 hand pain HURT ARM Reason for Visit Age-related osteopor osis without current pathological fracture Dupuytren's contracture of right hand GERD (gastroesophageal reflux disease) Hypertension Inflammatory polyarthritis Lumbar spondylosis Trigger finger Medicare annual wellness visit, subsequent Screening mammogram for breast cancer Left hip pain Primary osteoarthritis of hip Strain of hip and thigh Additional Source Comments INFORMATION SOURCE (unrecogn ized section and content) DATE CREATED AUTHOR 11/08/2017 [facility] DATE CREATED AUTHOR AUTHOR'S ORGANIZ ATION 10/13/2018 [facility] DATE CREATED AUTHOR AUTHOR'S ORGANIZ ATION 07/21/2022 [facility] DATE CREATED AUTHOR AUTHOR'S ORGANIZ ATION 12/21/2022 [facility] DATE CREATED AUTHOR AUTHOR'S ORGANIZ ATION 12/22/2022 [facility] DATE CREATED AUTHOR AUTHOR'S ORGANIZ ATION 09/10/2023 [facility] [facility] EPIC DATE CREATED AUTHOR AUTHOR'S ORGANIZ ATION 09/21/2023 [facility] REASON FOR VISIT (unrecogniz ed section and content) Reason Comments Other EGD/EUS D49.0 [id number] Care Teams (unrecognized sec tion and content) Team Status: Active Member Role Status Dates Arnoldo Nixon DO Primary Care Provider Active Team Status: Inactive Member Role Status Dates Arnoldo Nixon DO Primary Care Provider Active Ash Oliveira MD Attending Provider Active [employer] Relationship Specialty Start Date End Date Mckinley Alfaro DO PCP - General 12/08/22 Team Status: Active Member Role Status Dates Mckinley Alfaro DO Primary Care Provider Active Team Status: Inactive Member Role Status Dates Mckinley Alfaro DO Primary Care Provide r, Attending Provider Active Start: July 30, 2023 End: July 30, 2023 Team Status: Active Member Role Status Dates Mckinley Alfaro DO Primary Care Provide r, Attending Provider Active Start: August 03, 2023 Team Status: Inactive Member Role Status Dates Mckinley Alfaro DO Primary Care Provider Active Start: September 12, 2023 End: September 12, 2023 Tano Tsai MD Attending Provider Active St art: September 12, 2023 End: September 12, 2023 Team Status: Inactive Member Role Status Dates Mckinley Alfaro DO Primary Care Provider Active Start: September 13, 2023 End: September 13, 2023 Tano Tsai MD Attending Provider Active St art: September 13, 2023 End: September 13, 2023 Team Status: Inactive Member Role Status Dates Mckinley Alfaro DO Primary Care Provide r, Attending Provider Active Start: October 12, 2023 End: October 12, 2023 Goals (unrecognized section and content) Goals may be documented in a n alternate section FOR RECORDS PERTAINING TO PATIENTS WHO ARE [...] BE BASED ON THE PRIMARY CLINICAL RECORDS. [facility]. provides no warranty or guarantee of the accuracy or completeness of information in this document.
== END 2023-10-13 10:38 | disposition home or self-care (01) ==
LOC: LAB 10:38 → RAD 10:42
PROVIDERS: PCP Internal Medicine; Visit Provider Internal Medicine
DX: M25.552 Pain in left hip (principal); M16.0 Bilateral primary osteoarthritis of hip
CPT/HCPCS: 73502

== ENCOUNTER 2023-11-19 13:12 | Outpatient (RCR) | payer MEDICARE, OTHER, SELFPAY ==
--- OUTSIDE RECORDS SUMMARY | 2023-11-19 13:38 | XMS_ITS ---
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 Name Role Phone PHYSICIAN, DEFAULT Unavailable Unavailable PHYSICIAN, DEFAULT Unavailable Unavailable PHYSICIAN, DEFAULT Unavailable Unavailable PHYSICIAN, DEFAULT Unavailable Unavailable EIHARJIT SALDAÑA Attending Unavailable SALEEM, MCKINLEY Dos Santos Primary Care Unavailable SALEEM, MCKINLEY E Primary Care Unavailable Hawk Arabella Unavailable SALEEM, DR SEN Primary Care Unavailable BALL, DR SEN Admitting Unavailable BALL, DR SEN Attending Unavailable BALL, DR SEN Consulting Unavailable NAQVI, NICANOR Consulting Unavailable BALL, DR SEN Primary Care Unavailable ALEX ., DR SHARPE Admitting Unavailable ALEX ., DR SHARPE Attending Unavailable ALEX ., DR SHARPE Consulting Unavailable BALL, DR SEN Primary Care Unavailable BALL, DR SEN Admitting Unavailable BALL, DR SEN Attending Unavailable BALL, DR SEN Consulting Unavailable ALEX ., DR SHARPE Consulting Unavailable ZIEBER, DR TIFFANY Vasquez Consulting Unavailable BALL, DR SEN Primary Care Unavailable REQUEST, DR JOHNSON LISTED Admitting Unavaila ble BALL, DR SEN Consulting Unavailable REQUEST, DR JOHNSON LISTED Attending Unavaila ble REQUEST, DR JOHNSON LISTED Consulting Unavaila ble BALL, DR SEN Admitting Unavailable BALL, DR SEN Attending Unavailable BALL, DR SEN Consulting Unavailable BALL, DR SEN Primary Care Unavailable ZIEBER, DR TIFFANY Vasquez Consulting Unavailable BALL, DR SEN Admitting Unavailable BALL, DR SEN Attending Unavailable BALL, DR SEN Consulting Unavailable BALL, DR SEN Primary Care Unavailable Ball, Mckinley Unavailable DO Arnoldo Nixon Primary Care Provider [phone] MD Niurka Oliveira Attending Provider Keara Bullard Unavailable [phone] Mckinley Alfaro Unavailable Dinary, Dr. Lopes Attending Unavailable Dinary, Dr. Lopes Referring Unavailable Ball, Dr. Sen Supai Primary Care Melissa Li, Dr. Lopes Admitting Unavailable Ball DO, Mckinley [...] Referring Unavailable SHERRIE, JIL Nagy Attending Unavailable NIURKA, YSABEL Attending Unavailable APLING, JOHN [...] Care Provider MD Tano Tsai Attending Provider [phone] Niurka Oliveira Attending UnavailNiurka Nichols Admitting UnavailArnoldo Sutton Primary Care Unavailable Mckinley Alfaro Primary Care Unavailable Tano Tsai Attending Unavailable Tano Tsai Admitting Unavailable Mckinley Alfaro Primary Care Unavailable Tano Tsai Attending Unavailable Tano Tsai Admitting Unavailable Allergies Allergy Classification Reported Allergen(s) Allergy Type Date of Onset Reaction(s) Facility Adhesive Tape (1 source) Adhesive Tape Substance Allergy 10-30-19 24 Redness of Skin [facility] Dihydrofolate Reductase Inhibitors (antibiotic) (1 source) Trimethoprim Drug Allergy 10-30-19 24 Unknown Reaction [facility] Nitrofurantoin (1 source) Nitrofurantoin Drug Allergy 10-30-19 24 Comment:Macrob id [facility] Penicillins (antibiotic) (1 source) Penicillins Drug Allergy 10-30-19 24 Swelling of Lip/Tongue/Thr oat [facility] Sulfonamides (antibiotic) (1 source) Sulfamethoxazole Drug Allergy 10-30-19 24 Unknown Reaction [facility] tiZANidine (1 source) tiZANidine Drug Allergy 10-30-19 24 Insomnia [facility] (6 sources) Penicillin G Drug Allergy anaphylaxis [facility] Other (1 source) Penicillin Drug Allergy 01-23-20 15 [facility] Repository (5 sources) Adhesive Tape; Translations: [adhesive tape] Propensity to adverse reactions 02-24-20 17 Redness of Skin [facility] (6 sources) Penicillins; Translations: [Penicillins] Allergy to substance 02-24-20 17 Swelling of Lip/Tongue/Thr oat [facility] (6 sources) Adhesive Tape Drug allergy 04-19-20 16 Unknown [facility] Other (9 sources) Nitrofurantoin Drug Allergy 07-30-19 24 Comment:Macrob id [facility] (6 sources) Sulfamethoxazole / Trimethoprim Drug Allergy Unknown [facility] Other (6 sources) tiZANidine Comfort Pac *MUSCULOSKELETAL THERAPY AG Propensity to adverse reactions Comment:Could not sleep/rest. [facility] Other (6 sources) Substance with penicillin structure and antibacterial mechanism of action (substance) Drug allergy 04-19-20 16 Unknown [facility] Other (4 sources) Sulfamethoxazole; Translations: [sulfamethoxazole] Drug Allergy 07-30-19 24 Unknown Reaction [facility] (4 sources) tiZANidine; Translations: [tizanidine] Drug Allergy 07-30-19 24 Insomnia [facility] (4 sources) Trimethoprim; Translations: [trimethoprim] Drug Allergy 07-30-19 Unknown Reaction [facility] (1 source) Nitrofurantoin Drug Allergy 07-30-19 [facility] Repository Encounters Encounter Date Encounter Type Care Provider Facility Start: 10-30-2023 End: 10-30-2023 ambulatory DO Mckinley Ball Work Phone: [facility] Work Phone: Start: 10-30-2023 End: 10-30-2023 Patient encounter procedure DO Mckinley Ball Work Phone: [facility] Work Phone: Start: 10-12-2023 End: 10-12-2023 ambulatory DO Mckinley Ball Work Phone: [facility] Work Phone: Start: 10-12-2023 End: 10-12-2023 Patient encounter procedure DO Mckinley Ball Work Phone: [facility] Work Phone: Start: 09-13-2023 End: 09-13-2023 ambulatory Mckinley Ball Facility:[facility] Start: 09-13-2023 End: 09-13-2023 ambulatory DO Mckinley Ball Work Phone: [facility] Work Phone: Start: 09-13-2023 End: 09-13-2023 Patient encounter procedure DO Mckinley Ball Work Phone: [facility] [address] Work Phone: Start: 09-12-2023 End: 09-12-2023 ambulatory Mckinley Ball Facility:[facility] Start: 09-12-2023 End: 09-12-2023 ambulatory DO Mckinley Ball Work Phone: [facility] Work Phone: Start: 09-12-2023 End: 09-12-2023 Patient encounter procedure DO Mckinley Ball Work Phone: [facility] [address] Work Phone: Start: 09-06-2023 End: 09-07-2023 ambulatory JIL HONG Not Available Start: 08-23-2023 End: 08-23-2023 ambulatory JIL HONG Not Available Start: 08-03-2023 Non-patient / Non-visit DO Augie rios Saleem Work Phone: [facility] [facility] [employer] Work Phone: Start: 07-30-2023 End: 07-30-2023 Patient encounter procedure DO Mckinley Alfaro Work Phone: [facility] Work Phone: Start: 07-26-2023 End: 07-27-2023 ambulatory JIL HONG Not Available Start: 07-10-2023 End: 07-10-2023 ambulatory JIL HONG Not Available Start: 06-15-2023 End: 06-15-2023 ambulatory LYRIC Soraida RODRIGUEZ Not Available Start: 06-13-2023 Office outpatient vi sit 15 minutes Mckinley Alfaro [facility] Start: 06-13-2023 End: 06-14-2023 [facility] Other Start: 06-12-2023 End: 06-12-2023 ambulatory DELL CADENAZIO Not Available Start: 06-11-2023 End: 06-11-2023 ambulatory IVONNE KELBLEY Not Available Start: 06-07-2023 End: 06-07-2023 ambulatory IVONNE KELBLEY Not Available Start: 06-05-2023 End: 06-05-2023 ambulatory IVONNE KELBLEY Not Available Start: 05-31-2023 End: 05-31-2023 ambulatory IVONNE KELBLEY Not Available Start: 05-29-2023 End: 05-29-2023 ambulatory RACHELLE GUERREROPERIALL Not Available Start: 05-24-2023 End: 05-24-2023 ambulatory RACHELLE GUERREROPERIALL Not Available Start: 05-22-2023 End: 05-22-2023 ambulatory RACHELLE YOLANDAPERIALL Not Available Start: 05-18-2023 End: 05-18-2023 ambulatory Mckinley Alfaro Other [facility] Other Start: 05-18-2023 Telephone encounter Mckinley BRYANT [facility] Start: 05-10-2023 End: 05-10-2023 ambulatory RACHELLE JETER Not Available Start: 05-08-2023 End: 05-08-2023 ambulatory JIL HONG Not Available Start: 05-07-2023 End: 05-08-2023 ambulatory AL SALGADO Not Available Start: 05-03-2023 End: 05-03-2023 ambulatory IVONNE CASTELLANO [facility] Other Start: 05-03-2023 Office outpatient vi sit 15 minutes Mckinley Alfaro [facility] Start: 04-30-2023 End: 05-01-2023 ambulatory IVONNE CASTELLANO Not Available Start: 04-25-2023 End: 04-25-2023 ambulatory JOHN B APLING Not Available Start: 04-20-2023 End: 04-21-2023 ambulatory IVONNE CASTELLANO Not Available Start: 04-17-2023 End: 04-17-2023 ambulatory JIL GARRISONDLESTON Not Available Start: 04-16-2023 End: 04-16-2023 ambulatory YSABEL BAH Not Available Start: 04-09-2023 End: 04-09-2023 ambulatory YSABEL NIURKA Not Available Start: 04-06-2023 End: 04-09-2023 ambulatory LYRIC Soraida RODRIGUEZ Not Available Start: 04-03-2023 End: 04-03-2023 ambulatory YSABEL NIURKA Not Available Start: 03-30-2023 End: 04-02-2023 ambulatory JOHN B APLING Not Available Start: 03-08-2023 End: 03-08-2023 ambulatory Mckinley Alfaro Other [facility] Other Start: 03-08-2023 Office outpatient vi sit 15 minutes Mckinley Alfaro [facility] Start: 02-07-2023 End: 02-07-2023 ambulatory Mckinley Alfaro Other [facility] Other Start: 02-07-2023 Telephone encounter Mckinley BRYANT [facility] Start: 01-04-2023 End: 01-04-2023 ambulatory Mckinley Alfaro Other [facility] Other Start: 01-04-2023 Encounter for other preprocedural examination Mckinley Alfaro [facility] Start: 01-04-2023 Office outpatient vi sit 25 minutes Mckinley Alfrao [facility] Start: 12-21-2022 Message Mckinley Levon chase Work Phone: [facility]Elyri a [address] DO Work Phone: Start: 12-12-2022 End: 12-12-[address] Gustavo Li Facility:[id number] Start: 12-12-2022 End: 12-12-2022 Subsequent hospital visit by physician Gustavo Li MD Work Phone: [facility] Comment on above: Polyp of stomach and duodenum Start: 11-16-2022 End: 11-16-2022 ambulatory Mckinley Alfaro Other [facility] Other Start: 11-16-2022 Telephone encounter Mckinley BRYANT [facility] Start: 11-01-2022 End: 11-01-2022 ambulatory Keara Bullard Other [facility] Other Start: 11-01-2022 Office outpatient vi sit 15 minutes Keara Bullard [facility] Start: 09-28-2022 End: 09-28-2022 ambulatory Niurka Oliveira Facility:[facility] Start: 09-28-2022 End: 09-28-2022 Admission to same day surgery center DO Arnoldo House Work Phone: [facility] Work Phone: Start: 09-28-2022 End: 09-28-2022 ambulatory DO Arnoldo House Work Phone: [facility] Work Phone: Start: 07-20-2022 End: 07-20-2022 ambulatory Mckinley Alfaro Other [facility] Other Start: 07-20-2022 Telephone encounter Mckinley Alfaro FP G [facility] Start: 07-19-2022 End: 07-20-[address] MCKINLEY ALFARO Facility:[facility] Start: 07-04-2022 End: 07-04-2022 ambulatory Mckinley Alfaro Other [facility] Other Start: 07-04-2022 Office outpatient vi sit 25 minutes Mckinley Alfaro [facility] Start: 06-14-2022 End: 06-14-2022 ambulatory Arabella Arechiga Other [facility] Other Start: 06-14-2022 Telephone encounter Arabella vega [facility] Start: 06-13-2022 End: 06-14-[address] MCKINLEY ALFARO Facility:[facility] Start: 06-07-2022 End: 06-07-[address] MCKINLEY ALFARO Facility:[facility] Start: 05-03-2022 End: 05-04-[address] MCKINLEY ALFARO Facility:[facility] Start: 03-31-2022 End: 04-01-[address] MCKINLEY ALFARO Facility:[facility] Start: 03-09-2022 End: 03-09-2022 ambulatory Arabella Arechiga Other [facility] Other Start: 03-09-2022 Office outpatient vi sit 15 minutes Arabella Arechiga [facility] Start: 09-29-2021 End: 09-30-[address] MCKINLEY ALFARO Facility:[facility] Start: 10-05-2018 End: 10-05-2018 Emergency department patient visit MCKINLEY ALFARO [facility] Start: 10-04-2018 End: 10-04-2018 Emergency department patient visit HARJIT OLIVIA [facility] Start: 09-25-2017 End: 09-26-2017 Ambulatory DEFAULT PHYSICIAN Facility:[facility] Start: 09-07-2017 End: 09-08-2017 Ambulatory DEFAULT PHYSICIAN Facility:[facility] Goals Date Patient Goal Desired Activity /State Immunizations Immunization Date Immunization Notes Care Provider Radha gunn 03-08-2023 influenza virus vaccine, unspecified formulation DO Mckinley Alfaro Work Phone: [facility] 03-08-2023 influenza, high dose seasonal, preservative-free Mckinley Alfaro Other [facility] [employer] Other 04-07-2022 diphtheria, tetanus toxoids and acellular pertussis vaccine, unspecified formulation Mckinley Alfaro Other [facility] 03-01-2022 influenza virus vaccine, split virus (incl. purified surface antigen) Mckinley Alfaro Other [facility] Other 03-01-2022 influenza virus vaccine, unspecified formulation DO Mckinley Alfaro Work Phone: [facility] 08-04-2019 pneumococcal conjuga te vaccine, 13 valent Mckinley Alfaro Other [facility] Medications Current Medications Medication Drug Class(es) Dates Sig (Normalized) Sig (Original) acetaminophen 325 mg / HYDROcodone bitartrate 5 mg oral tablet (20 sources) Opioid Agonist Start: 07-26-2023 End: 10-12-2023 take 1 tablet by mouth twice daily Hydrocodone-Aceta minophen Active 1 TAB PO Twice daily 60 30 October 12, 2023 start 10/11 Start: 06-13-2023 take 1 tablet by romulo [...] oral tablet (20 sources) beta-Adrenergic Natacha Start: 10-22-2023 take 1 tablet by mouth once daily Atenolol Active 0 .ROUTE .COMPLEX 90 October 22, 2023 4:46pm TAKE 1 TABLET BY MOUTH EVERY DAY Start: 04-08-2018 End: 10-22-2023 take 100 mg by mouth once daily Atenolol Discontinued 100 MG PO Daily July 26, 2023 2:47pm October 22, 2023 4:46pm Start: 02-23-2017 End: 04-08-2018 take 100 mg by mouth once daily Atenolol Discontinued 100 MG PO Daily February 23, 2017 12:00am April 08, 2018 8:29am take 1 tablet by romulo every twenty-four hours Atenolol 50 MG 1 tablet Orally Once a day Not-Taking/PRN biotin 1 mg oral tablet (19 sources) Start: 04-08-2018 End: 07-26-2023 take 1 mg by mouth once daily Biotin Active 1 MG PO Daily July 26, 2023 2:47pm Start: 02-23-2017 End: 08-24-2017 take 3 tablets by mouth once daily Biotin Discontinued 3 TAB PO Daily February 23, 2017 12:00am August 24, 2017 7:39am take 1 tablet by romulo th every twenty-four hours Biotin Maximum Strength 03415 MCG 1 tablet Orally Once a day PRN Active take 1 tablet by romulo th every twenty-four hours Biotin Maximum Strength 65223 MCG 1 tablet Orally Once a day PRN Active Biotin Maximum Strength 92887 MCG (7 sources) take 1 tablet by romulo th once daily as needed Biotin Maximum Strength 39165 MCG 1 tablet Orally Once a day PRN Active take 1 tablet by mouth once gayla y Biotin Maximum Strength 68583 MCG 1 tablet Orally Once a day Active dimenhyDRINATE 50 mg oral tablet (12 sources) Start: 07-26-2023 take 50 mg by mouth every six hours Dimenhydrinate Active 50 MG PO Every 6 hours July 26, 2023 1:00am take 1 tablet by mouth every six hours Dramamine 50 MG 1 tablet as needed Orally every 6 hrs Active hydroCHLOROthiazide 25 mg oral tablet (8 sources) Thiazide Diuretic Start: 09-28-2022 take 25 [...] chloride 10 meq extended release oral capsule (6 sources) Start: 07-26-2023 take 10 mEq by mouth once daily Potassium Chloride Active 10 MEQ PO Daily July 26, 2023 1:00am Start: 05-17-2023 take 1 capsule by [facility] every twenty-four hours Potassium Chloride ER 10 MEQ 1 capsule with food Orally Once a day for 30 days Apr, Active predniSONE 20 mg oral tablet (1 source) Start: 06-13-2023 predniSONE 20 MG 1 tablet Orally bid w/ food x 5 days then qd w/ food x 5 days for 10 days May, Active triamcinolone acetonide 0.005 mg/mg topical ointment (16 sources) Corticosteroid Start: 07-26-2023 Triamcinolone Acetonide Active 1 APPLIC TOPICAL Twice daily July 26, 2023 1:00am Start: 03-08-2023 Triamcinolone Acetonide 0.5 % 1 application Externally Twice a day for 30 days Feb, Active Start: 11-01-2022 Kenalog-40 Oct, 40 mg 100 ml zoledronic acid 0.05 mg/ml injection (7 sources) Bisphosphonate Start: 07-26-2023 Zoledronic Jgzq-Gxuorync-Ljszy (Reclast) 5 mg/100 mL piggyback Active EACH IV As Directed July 26, 2023 1:00am Start: 05-03-2023 Reclast 5 MG/1 00ML as directed Intravenous Apr, Active Completed/Discontinued Medications Medication Drug Class(es) Dates Sig (Normalized) Sig (Original) aspirin 81 mg delayed release oral tablet (5 sources) Platelet Aggregation Inhibitor, Nonsteroidal Anti-inflammatory Drug Start: 04-02-2018 End: 09-28-2022 take 1 tablet by mouth once daily Aspirin (Aspir-81) 81 mg Tablet,Delayed Release (Dr/Ec) Discontinued 81 MG PO Daily April 02, 2018 1:00am September 28, 2022 7:46am Calcium (5 sources) Phosphate Binder, Calcium Start: 09-28-2022 End: 07-26-2023 take 500 mg by mouth once daily Calcium Discontinued 500 MG PO Daily September 28, 2022 12:00am July 26, 2023 2:56pm Start: 09-28-2022 take 500 mg by mouth once gayla y Calcium Active 500 MG PO Daily September 28, 2022 12:00am Calcium Carb-Magnesium Carb,Ox (Eliud-Mag) 200 mg calcium- 100 mg Tablet,Chewable (1 source) Start: 02-23-2017 End: 08-24-2017 take 1 tablet by mouth once daily Calcium Carb-Magnesium Carb,Ox (Eliud-Mag) 200 mg calcium- 100 mg Tablet,Chewable Discontinued 1 TAB PO Daily February 23, 2017 12:00am August 24, 2017 7:39am Calcium Carb-Magnesium Ox,Carb (Eliud-Mag) 200 mg calcium- 100 mg Tablet,Chewable (4 sources) Start: 02-23-2017 End: 08-24-2017 take 1 tablet by mouth once daily Calcium Carb-Magnesium Ox,Carb (Eliud-Mag) 200 mg calcium- 100 mg Tablet,Chewable Discontinued 1 TAB PO Daily February 23, 2017 12:00am August 24, 2017 7:39am calcium carbonate 750 mg chewable tablet (10 sources) Start: 09-28-2022 End: 07-26-2023 take 1 [...] 2018 8:46am cholecalciferol 0.025 mg oral tablet (5 sources) Vitamin D Start: 09-28-2022 End: 07-26-2023 take 1 tablet by mouth once daily Cholecalciferol (Vitamin D3) (Vitamin D3) 25 mcg (1,000 unit) Tablet Discontinued 25 MCG PO Daily September 28, 2022 12:00am July 26, 2023 2:56pm hydroCHLOROthiazide 12.5 mg / olmesartan medoxomil 20 mg oral tablet (5 sources) Thiazide Diuretic, Angiotensin 2 Receptor Natacha Start: 04-02-2018 End: 10-21-2018 take 1 tablet by mouth once daily Olmesartan-Hydrochl orothiazide (Benicar Hct) 20-12.5 mg Tablet Discontinued 1 TAB PO Daily April 02, 2018 1:00am October 21, 2018 8:47am hydroCHLOROthiazide 12.5 mg / valsartan 80 mg oral tablet (10 sources) Thiazide Diuretic, Angiotensin 2 Receptor Natacha [...] / neomycin 3.5 mg/ml / polymyxin b 04398 unt/ml otic solution (12 sources) Aminoglycoside Antibacterial, Polymyxin-class Antibacterial, Corticosteroid Start: 03-09-2022 Wbznwblg-Kjsksvzhj-YC 3.5-46036-4 4 drops into affected ear Otic Three times a day for 7 day(s) Feb, Not-Taking/PRN inulin 2000 mg chewable tablet (5 sources) Start: 09-28-2022 End: 07-26-2023 take 1 tablet by mouth once daily Inulin (Fiber Gummies) 2 gram Tablet,Chewable Discontinued 1 GM PO Daily September 28, 2022 12:00am July 26, 2023 2:56pm Magnesium (5 sources) Start: 04-08-2018 End: 10-21-2018 take 250 mg by mouth once daily Magnesium Discontinued 250 MG PO Daily April 08, 2018 1:00am October 21, 2018 8:46am Meclizine (12 sources) Antiemetic Meclizine HCl OH N Not-Taking/PRN Meclizine HCl OH N Not-Taking Meclizine HCl OH N Active meloxicam 15 mg oral tablet (14 sources) Nonsteroidal Anti-inflammatory Drug Start: 02-23-2017 End: 07-26-2023 take 15 mg by mouth once daily Meloxicam Discontinued 15 MG PO Daily February 23, 2017 12:00am July 26, 2023 2:57pm methylPREDNISolone 4 mg oral tablet (20 sources) Corticosteroid Start: 03-09-2022 methylPREDNISolone 4 MG as directed Orally daily for 6 days Oct, Not-Taking/PRN Multivitamin With Minerals (Hair,Skin And Nails) Tablet (5 sources) Start: 08-24-2017 End: 10-21-2018 take 1 tablet by mouth once daily Multivitamin With Minerals (Hair,Skin And Nails) Tablet Discontinued 1 TAB PO Daily August 24, 2017 12:00am October 21, 2018 8:46am Ama 1-Uxe-Epa-Fish Oil (Fish Oil) 1,000 mg (120 mg-180 mg) Capsule (5 sources) Start: 02-23-2017 End: 08-24-2017 take 1 capsule by mouth once daily Ama 3-Xzx-Dow-Fish Oil (Fish Oil) 1,000 mg (120 mg-180 mg) Capsule Discontinued 1 CAP PO Daily February 23, 2017 12:00am August 24, 2017 7:39am Ama Red (5 sources) Start: 04-02-2018 End: 09-28-2022 take 1 tablet by mouth once daily Ama Red Discontinued 1 TAB PO Daily April [...] Not-Taking/PRN traMADol hydrochloride 50 mg oral tablet (10 sources) Opioid Agonist Start: 09-28-2022 End: 07-26-2023 [...] Not-Taking Payers Date Payer Category Payer Self-pay [id number] 2022 Unknown [id number] 2015 Unknown [id number] 2015 Unknown [id number] 1959 Medicare [id number] 2.16.840.1.578496.19 1959 Self-pay [id number] 1959 Unknown [id number] 2.16.840.1.107659.19 1952 Unknown [id number] 2.16.840.1.502468.3.579.2.1 73 1952 Unknown [id number] 2.16.840.1.692465.3.579.2.1 73 1952 Unknown [id number] 2.16.840.1.739652.3.579.2.5 93 1952 Unknown [id number] 2.16.840.1.480151.3.579.2.5 93 1952 Unknown [id number] 2.16.840.1.231477.3.579.2.5 93 1952 Unknown [id number] 2.16.840.1.172536.3.579.2.5 93 1952 Unknown [id number] 2.16.840.1.391228.3.579.2.5 93 1952 Unknown [id number] 2.16.840.1.708829.3.579.2.1 069 1952 Unknown [id number] 2.16.840.1.905225.3.579.2.1 259 1952 Unknown [id number] 2.16.840.1.143057.3.579.2.1 259 1952 Unknown [id number] 2.16.840.1.426725.3.579.2.1 259 1952 Unknown [id number] 2.16.840.1.281363.3.579.2.1 259 1952 Unknown [id number] 2.16.840.1.142843.3.579.2.1 259 1952 Unknown [id number] 2.16.840.1.960722.3.579.2.1 259 1952 Unknown [id number] 2.16.840.1.146250.3.579.2.1 259 1952 Unknown [id number] 2.16.840.1.209487.3.579.2.1 259 1952 Unknown [id number] 2.16.840.1.913524.3.579.2.1 259 1952 Unknown [id number] 2.16.840.1.136112.3.579.2.1 259 1952 Unknown [id number] 2.16.840.1.497181.3.579.2.1 259 1952 Unknown [id number] 2.16.840.1.836809.3.579.2.1 259 1952 Unknown [id number] 2.16.840.1.513352.3.579.2.1 259 1952 Unknown [id number] 2.16.840.1.004573.3.579.2.1 259 1952 Unknown [id number] 2.16.840.1.412653.3.579.2.1 259 1952 Unknown [id number] 2.16.840.1.822224.3.579.2.1 259 1952 Unknown [id number] 2.16.840.1.023211.3.579.2.1 259 1952 Unknown [id number] 2.16.840.1.488101.3.579.2.1 259 1952 Unknown [id number] 2.16.840.1.024645.3.579.2.1 259 1952 Unknown [id number] 2.16.840.1.415808.3.579.2.1 259 1952 Unknown [id number] 2.16.840.1.244610.3.579.2.1 259 1952 Unknown [id number] 2.16.840.1.043257.3.579.2.1 259 1952 Unknown [id number] 2.16.840.1.222499.3.579.2.1 259 1952 Unknown [id number] 2.16.840.1.636347.3.579.2.1 259 1952 Unknown [id number] 2.16.840.1.294847.3.579.2.1 259 1952 Unknown [id number] 2.16.840.1.939169.3.579.2.1 259 1952 Unknown [id number] 2.16.840.1.130953.3.579.2.1 259 1952 Unknown [id number] 2.16.840.1.350106.3.579.2.1 259 1952 Unknown [id number] 2.16.840.1.920913.3.579.2.1 259 Medicare Medicare-OP No Part B [id number] Unknown Unknown [id number] 2.16.840.1.410666.3.579.2.5 93 Unknown [id number] 2.16.840.1.698045.3.579.2.5 31 Unknown [id number] 2.16.840.1.882587.3.579.2.5 31 Unknown [id number] 2.16.840.1.670064.3.579.2.5 31 Worker's Compensation [employer] [place] [facility] [id number] Plan of Treatment Date Care Activity Detail Author Start: 09-12-2023 Hepatitis B core antibody measurement [facility] Start: 09-12-2023 [facility] Start: 01-19-2023 Influenza vaccination Influenza Vaccine (#1) [facility] Start: 09-28-2022 [facility] Start: 2017 Pneumococcal Vaccine: 65+ Years (1 - PCV) Pneumococcal Vaccine: 65+ Years (1 - PCV) [facility] Start: 2002 Zoster Vaccines (1 of 2) Zoster Vaccines (1 of 2) [facility] Start: 1992 Screening for malignant neoplasm of breast Mammogram [facility] Start: 1974 DTaP/Tdap/Td Vaccines (1 - Tdap) DTaP/Tdap/Td Vaccines (1 - Tdap) [facility] Start: 1970 Hepatitis C screening Hepatitis C Screening [facility] Start: 1950 COVID-19 Vaccine (#1) COVID-19 Vaccine (#1) [facility] Start: 1950 Lipid panel Lipid Panel [facility] Start: 1950 Screening for malignant neoplasm of colon [facility] Start: 1950 Screening for osteoporosis Bone Density Scan [facility] Start: 1950 Yearly Adult Physical Yearly Adult Physical [facility] Comprehensive metabo lic 2000 panel - Serum or Plasma [facility] Hepatitis B virus jimenez rface Ab [Presence] in Serum [facility] Hepatitis B virus jimenez rface Ag [Presence] in Serum or Plasma by Immunoassay [facility] Hepatitis C virus Ig G Ab [Presence] in Serum or Plasma by Immunoassay [facility] MG Breast - bilatera l Screening [facility] Patient Education Esophageal Dil ation Hiatal Hernia (DC) Stomach Polyps [facility] Work Phone: Rheumatoid factor [Units/volume] in Serum or Plasma [facility] Thyroid stimulating immunoglobulins actual/normal in Serum [facility] XR Hip - left 2 Views [facility] Problems Active Problems Problem Classification Problem Date Documented Da te Episodic/Chronic Abdominal hernia (4 sources) Hiatal hernia; Translations: [Diaphragmatic hernia without obstruction or gangrene] Episodic Complications of surgical procedures or medical care (5 sources) Non-healing surgical wound; Translations: [Other complications [...] Translations: [Vitamin D deficiency, unspecified] Chronic Osteoarthritis (18 sources) Osteoarthritis of joint of right shoulder [...] duodenum] 12-21-2022 Episodic Other connective tissue disease (7 sources) Fibromyalgia; Translations: [Fibromyalgia] 10-28-2023 Episodic Other connective tissue disease (1 source) Unspecified disorder of synovium and tendon, unspecified site Episodic Other connective tissue disease (4 sources) Dupuytren's contracture; Translations: [Palmar fascial fibromatosis [Dupuytren]] 07-30-2023 Episodic Other connective tissue disease (4 sources) Triggering of digit; Translations: [Trigger finger, unspecified finger] 07-30-2023 Episodic Other connective tissue disease (3 sources) Palmar fascial fibromatosis [Dupuytren]; 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] 07-30-2023 Episodic Other connective tissue disease (4 sources) Trigger finger, unspecified finger; Translations: [Trigger finger (acquired)] 07-30-2023 Episodic Other connective tissue disease (1 source) Pain in right hand; Translations: [Pain in right hand] Onset: Episodic Other connective tissue disease (1 source) Fibromyalgia; Translations: [Myalgia and myositis, unspecified] 10-30-2023 Episodic Other ear and sense organ disorders (1 source) Impacted cerumen, right ear Episodic Other gastrointestinal disorders (15 sources) Irritable bowel syndrome characterized by constipation; Translations: [Irritable bowel syndrome with constipation] 07-26-2023 Chronic Other gastrointestinal disorders (1 source) Irritable bowel syndrome with constipation Chronic Other gastrointestinal disorders (9 sources) Dysphagia; Translations: [Dysphagia, unspecified] 09-28-2022 Episodic Other gastrointestinal disorders (4 sources) Heartburn; Translations: [Heartburn] Episodic Other gastrointestinal disorders (7 sources) Constipation; Translations: [Constipation, unspecified] Episodic Other inflammatory condition of skin (2 sources) Psoriatic arthritis; Translations: [Arthropathic psoriasis, unspecified] 09-18-2023 [...] joint; Translations: [Pain in unspecified joint] Onset: Episodic Other non-traumatic joint disorders (2 sources) Hip pain; Translations: [Pain in left hip] 10-12-2023 Episodic Other non-traumatic joint disorders (2 sources) Pain in left hip; Translations: [Pain in [...] Chronic Other nutritional; endocrine; and metabolic disorders (4 sources) Obesity caused by energy imbalance; Translations: [...] STATE] Onset: 3 Episodic Residual codes; unclassified (5 sources) Edema of left lower limb; Translations: [Localized edema] 08-24-2017 Episodic Rheumatoid arthritis and related disease (10 sources) Inflammatory polyarthropathy; Translations: [Inflammatory polyarthropathy] Chronic Spondylosis; intervertebral disc disorders; other back problems (20 sources) Lumbar spondylosis; Translations: [Spondylosis without myelopathy or radiculopathy, lumbar region] Chronic Sprains and strains (6 sources) Strain of muscle(s) and tendon(s) of the rotator cuff of right shoulder, subsequent encounter; Translations: [Strain of muscle, fascia and tendon of lower back, initial encounter] Episodic Superficial injury; contusion (5 sources) Contusion of right shoulder, initial encounter; Translations: [Contusion of left hip, initial encounter] Onset: Episodic Thyroid disorders (4 sources) Hypothyroidism; Translations: [Hypothyroidism, unspecified] 07-30-2023 Chronic [...] Work Phone: Start: 12-12-2022 SURGICAL PATHOLOGY RESULTS Gustavo Li MD Work Phone: Start: 12-12-2022 Esophagoscopy flexible transoral ultrasound exam Gustavo Li MD Work Phone: Start: 09-28-2022 Esophagogastroduodenoscopy DO Arnoldo Ho use Work Phone: Start: 10-04-2018 Urinalysis microscopic only HARJIT EIPIPER Start: 10-04-2018 Urnls dip stick/tablet rgnt auto w/o microscopy HARJIT EITCHES Start: 10-04-2018 Ct abdomen & pelvis w/o contrast material HARJIT EITCHES Start: 10-04-2018 INSERT PERIPHERAL IV HARJIT EITCHES Start: 10-04-2018 Blood count complete auto&auto difrntl wbc HARJIT EITCHES Results Test Name Value Interpretation Reference Range Facility XR chest 2V*on 09-13-2023 XR chest 2V* [facility] [place] [address] [place] [id number] XRay Report Signed Patient: Lizzy Welsh MR#: [id number] : 1950 Acct:[id number] Age/Sex: 73 / F ADM Date: 09/13/23 Loc: ICXD Room: Type: REG CLI Attending Dr: Tano Tsai MD Copies to: [...] Anny Powell M.D.09/13/2023 5:13 PM Dictation Location: [place] [address] Transcribed By: [facility] 09/13/231712 Dictated By: Anny Powell II, MD 09/13/231711 Signed By: 09/13/23 171 Normal [facility] XR hand BI 2Von 09-13-2023 XR hand BI 2V [facility] Main [address] [address] XRay Report Signed Patient: Lizzy Welsh MR#: [id number] : 1950 Acct:[id number] Age/Sex: 73 / F ADM Date: 09/13/23 Loc: ICXD Room: Type: REG CLI Attending Dr: Tano Tsai MD Copies to: [...] Anny Powell M.D.09/13/2023 5:21 PM Dictation Location: [place] [address] Transcribed By: [facility] 09/13/23 1721 Dictated By: Anny Powell II, MD 09/13/23 1719 Signed By: 09/13/23 1721 Normal [facility] Alanine aminotransferase [En zymatic activity/volume] in Serum or PlasmaOrdered By: Tano Tsai on 09-12-2023 ALT [Catalytic activity/Vol] 18 U/L 7-52 [facility] Albumin [Mass/volume] in Ser um or Plasma by Bromocresol green (BCG) dye binding methoOrdered By: Tano Tsai on 09-12-2023 Albumin BCG dye [Mass/Vol] 4.2 g/dL 3.5-5.7 [facility] Alkaline phosphatase [Enzyma tic activity/volume] in Serum or PlasmaOrdered By: Tano Tsai on 09-12-2023 ALP [Catalytic activity/Vol] 82 U/L 34-104 [facility] Aspartate aminotransferase [ Enzymatic activity/volume] in Serum or PlasmaOrdered By: Tano Tsai on 09-12-2023 AST [Catalytic activity/Vol] 16 U/L 13-39 [facility] Basophils Auto (Bld) [#/Vol] Ordered By: Tano Tsai on 09-12-2023 Basophils (Bld) [#/Vol] 0.1 10*3/uL 0.0-0.2 [facility] Basophils/100 WBC Auto (Bld) Ordered By: Tano Tsai on 09-12-2023 Basophils/100 WBC (Bld) 0.7 % . [facility] Bilirubin.total [Mass/volume ] in Serum or PlasmaOrdered By: Tano Tsai on 09-12-2023 Bilirubin [Mass/Vol] 0.5 mg/dL 0.3-1.0 [facility] C reactive protein [Mass/vol ume] in Serum or PlasmaOrdered By: Tano Tsai on 09-12-2023 CRP [Mass/Vol] 2.1 mg/dL 0.0-0.5 [facility] C-Reactive Proteinon 024 C-Reactive Protein 2.1 mg/dL High 0.0-0.5 [facility] Comment on above: Result Comment: PERF ORMED BY: [place] [address] PATHOLOGIST [employer] SYSTEM ADMINISTRATOR VICENTE MONTEZ M.D. Performed By: #### C MP, ESR, PTH, CBC, CRP #### [place] [address] [place] #### HBCAB, HBSAB, HBSAG, HCV RX PCR #### [facility] , Calcium [Mass/volume] in Ser um or PlasmaOrdered By: Tano Tsai on 09-12-2023 Calcium [Mass/Vol] 9.9 mg/dL 8.6-10.3 [facility] Carbon dioxide, total [Moles /volume] in Serum or PlasmaOrdered By: Tano Tsai on 09-12-2023 CO2 [Moles/Vol] 31.5 mmol/L 21.0-31.0 [facility] Chloride [Moles/volume] in S concha or PlasmaOrdered By: Tano Tsai on 09-12-2023 Chloride [Moles/Vol] 105 mmol/L 98-107 [facility] Complete Blood Count Auto Di ffon 09-12-2023 Basophils (Bld) [#/Vol] 0.1 10*3/uL Normal 0.0-0.2 [facility] Comment on above: Performed By: #### C MP, ESR, PTH, CBC, CRP #### [address] #### HBCAB, HBSAB, HBSAG, HCV RX PCR #### [facility] , Basophils/100 WBC (Bld) 0.7 % Normal . [facility] Comment on above: Performed By: #### C MP, ESR, PTH, CBC, CRP #### [address] #### HBCAB, HBSAB, HBSAG, HCV RX PCR #### [facility] , Eosinophils (Bld) [#/Vol] 0.3 10*3/uL Normal 0.0-0.45 [facility] Comment on above: Performed By: #### C MP, ESR, PTH, CBC, CRP #### [place] [address] [place] #### HBCAB, HBSAB, HBSAG, HCV RX PCR #### [facility] , Eosinophils/100 WBC (Bld) 3.3 % Normal . [facility] Comment on above: Performed By: #### C MP, ESR, PTH, CBC, CRP #### [place] [address] [place] #### HBCAB, HBSAB, HBSAG, HCV RX PCR #### [facility] , Erythrocyte distribution width (RBC) [Ratio] 14.8 % Normal 11.9-15.3 [facility] Comment on above: Performed By: #### C MP, ESR, PTH, CBC, CRP #### [place] [address] [place] #### HBCAB, HBSAB, HBSAG, HCV RX PCR #### [facility] , Hematocrit (Bld) [Volume fraction] 40.9 % Normal 34.0-46.4 [facility] Comment on above: Performed By: #### C MP, ESR, PTH, CBC, CRP #### [address] #### HBCAB, HBSAB, HBSAG, HCV RX PCR #### [facility] , Hemoglobin (Bld) [Mass/Vol] 13.2 g/dL Normal 11.8-15.4 [facility] Comment on above: Performed By: #### C MP, ESR, PTH, CBC, CRP #### [address] #### HBCAB, HBSAB, HBSAG, HCV RX PCR #### [facility] , Lymphocytes (Bld) [#/Vol] 1.9 10*3/uL Normal 1.00-4.8 [facility] Comment on above: Performed By: #### C MP, ESR, PTH, CBC, CRP #### [address] #### HBCAB, HBSAB, HBSAG, HCV RX PCR #### [facility] , Lymphocytes/100 WBC (Bld) 21.1 % Normal . [facility] Comment on above: Performed By: #### C MP, ESR, PTH, CBC, CRP #### [place] [address] [place] #### HBCAB, HBSAB, HBSAG, HCV RX PCR #### [facility] , MCH (RBC) [Entitic mass] 27.6 pg Normal 24.7-34.3 [facility] Comment on above: Performed By: #### C MP, ESR, PTH, CBC, CRP #### [address] #### HBCAB, HBSAB, HBSAG, HCV RX PCR #### [facility] , MCV (RBC) [Entitic vol] 85.2 fL Normal 80-100 [facility] Comment on above: Performed By: #### C MP, ESR, PTH, CBC, CRP #### [address] #### HBCAB, HBSAB, HBSAG, HCV RX PCR #### [facility] , Mean Corpuscular HGB Conc 32.4 g/dL Normal 32.0-35.0 [facility] Comment on above: Performed By: #### C MP, ESR, PTH, CBC, CRP #### [address] #### HBCAB, HBSAB, HBSAG, HCV RX PCR #### [facility] , Monocytes (Bld) [#/Vol] 1.0 10*3/uL High 0.0-0.8 [facility] Comment on above: Performed By: #### C MP, ESR, PTH, CBC, CRP #### [address] #### HBCAB, HBSAB, HBSAG, HCV RX PCR #### [facility] , Monocytes/100 WBC (Bld) 10.5 % Normal . [facility] Comment on above: Performed By: #### C MP, ESR, PTH, CBC, CRP #### [address] #### HBCAB, HBSAB, HBSAG, HCV RX PCR #### [facility] , Neutrophils (Bld) [#/Vol] 5.9 10*3/uL Normal 1.8-7.7 [facility] Comment on above: Performed By: #### C MP, ESR, PTH, CBC, CRP #### [address] #### HBCAB, HBSAB, HBSAG, HCV RX PCR #### [facility] , Neutrophils/100 WBC (Bld) 64.4 % Normal . [facility] Comment on above: Performed By: #### C MP, ESR, PTH, CBC, CRP #### [address] #### HBCAB, HBSAB, HBSAG, HCV RX PCR #### [facility] , NRBC% 0.2 /100{WBC} Normal 0-0.5 [facility] Comment on above: Performed By: #### C MP, ESR, PTH, CBC, CRP #### [address] #### HBCAB, HBSAB, HBSAG, HCV RX PCR #### [facility] , Platelet mean volume (Bld) [Entitic vol] 10.3 fL Normal 6.3-10.7 [facility] Comment on above: Performed By: #### C MP, ESR, PTH, CBC, CRP #### [address] #### HBCAB, HBSAB, HBSAG, HCV RX PCR #### [facility] , Platelets (Bld) [#/Vol] 253 10*3/uL Normal 150-450 [facility] Comment on above: Performed By: #### C MP, ESR, PTH, CBC, CRP #### [address] #### HBCAB, HBSAB, HBSAG, HCV RX PCR #### [facility] , RBC (Bld) [#/Vol] 4.80 10*6/uL Normal 3.60-5.00 [facility] Comment on above: Performed By: #### C MP, ESR, PTH, CBC, CRP #### [place] [address] [place] #### HBCAB, HBSAB, HBSAG, HCV RX PCR #### [facility] , WBC (Bld) [#/Vol] 9.2 10*3/uL Normal 3.8-11.6 [facility] Comment on above: Performed By: #### C MP, ESR, PTH, CBC, CRP #### [address] #### HBCAB, HBSAB, HBSAG, HCV RX PCR #### [facility] , Comprehensive Metabolic Pane mayur 09-12-2023 Albumin [Mass/Vol] 4.2 g/dL Normal 3.5-5.7 [facility] Comment on above: Performed By: #### C MP, ESR, PTH, CBC, CRP #### [address] #### HBCAB, HBSAB, HBSAG, HCV RX PCR #### [facility] , Albumin/Globulin [Mass ratio] 1.4 {ratio} Normal [facility] Comment on above: Performed By: #### C MP, ESR, PTH, CBC, CRP #### [address] #### HBCAB, HBSAB, HBSAG, HCV RX PCR #### [facility] , ALP [Catalytic activity/Vol] 82 U/L Normal 34-104 [facility] Comment on above: Performed By: #### C MP, ESR, PTH, CBC, CRP #### [address] #### HBCAB, HBSAB, HBSAG, HCV RX PCR #### [facility] , ALT [Catalytic activity/Vol] 18 U/L Normal 7-52 [facility] Comment on above: Performed By: #### C MP, ESR, PTH, CBC, CRP #### [place] [address] [place] #### HBCAB, HBSAB, HBSAG, HCV RX PCR #### [facility] , Anion gap [Moles/Vol] 9.7 mmol/L Normal 6.0-15.0 [facility] Comment on above: Performed By: #### C MP, ESR, PTH, CBC, CRP #### [address] #### HBCAB, HBSAB, HBSAG, HCV RX PCR #### [facility] , AST [Catalytic activity/Vol] 16 U/L Normal 13-39 [facility] Comment on above: Performed By: #### C MP, ESR, PTH, CBC, CRP #### [address] #### HBCAB, HBSAB, HBSAG, HCV RX PCR #### [facility] , Bilirubin [Mass/Vol] 0.5 mg/dL Normal 0.3-1.0 [facility] Comment on above: Performed By: #### C MP, ESR, PTH, CBC, CRP #### [address] #### HBCAB, HBSAB, HBSAG, HCV RX PCR #### [facility] , Calcium [Mass/Vol] 9.9 mg/dL Normal 8.6-10.3 [facility] Comment on above: Performed By: #### C MP, ESR, PTH, CBC, CRP #### [address] #### HBCAB, HBSAB, HBSAG, HCV RX PCR #### [facility] , Chloride [Moles/Vol] 105 mmol/L Normal 98-107 [facility] Comment on above: Performed By: #### C MP, ESR, PTH, CBC, CRP #### [address] #### HBCAB, HBSAB, HBSAG, HCV RX PCR #### [facility] , CO2 [Moles/Vol] 31.5 mmol/L High 21.0-31.0 [facility] Comment on above: Performed By: #### C MP, ESR, PTH, CBC, CRP #### [place] [address] [place] #### HBCAB, HBSAB, HBSAG, HCV RX PCR #### [facility] , Creatinine [Mass/Vol] 0.74 mg/dL Normal 0.60-1.20 [facility] Comment on above: Performed By: #### C MP, ESR, PTH, CBC, CRP #### [place] [address] [place] #### HBCAB, HBSAB, HBSAG, HCV RX PCR #### [facility] , GFR/1.73 sq M.predicted MDRD (S/P/Bld) [Vol rate/Area] mL/min/{1.73_m2} Normal [facility] Comment on above: Performed By: #### C MP, ESR, PTH, CBC, CRP #### [address] #### HBCAB, HBSAB, HBSAG, HCV RX PCR #### [facility] , Globulin (S) [Mass/Vol] 2.9 g/dL Normal T [facility] Comment on above: Performed By: #### C MP, ESR, PTH, CBC, CRP #### [place] [address] [place] #### HBCAB, HBSAB, HBSAG, HCV RX PCR #### [facility] , Glucose [Mass/Vol] 99 mg/dL Normal 70-100 [facility] Comment on above: Result Comment: [facility] Glucose Reference Range is dependent on time and content of last meal. Glucose of more than 200 mg/dL in a nonstressed, ambulatory subject supports the diagnosis of Diabetes Mellitus. ADA recommended reference range Performed By: #### C MP, ESR, PTH, CBC, CRP #### [place] [address] [place] #### HBCAB, HBSAB, HBSAG, HCV RX PCR #### [facility] , Potassium [Moles/Vol] 4.2 mmol/L Normal 3.5-5.1 [facility] Comment on above: Performed By: #### C MP, ESR, PTH, CBC, CRP #### [facility] [address] [place] [address] [place] #### HBCAB, HBSAB, HBSAG, HCV RX PCR #### [facility] , Protein [Mass/Vol] 7.1 g/dL Normal 6.4-8.9 [facility] Comment on above: Performed By: #### C MP, ESR, PTH, CBC, CRP #### [facility] [address] [place] [address] [place] #### HBCAB, HBSAB, HBSAG, HCV RX PCR #### [facility] , Sodium [Moles/Vol] 142 mmol/L Normal 136-145 [facility] Comment on above: Performed By: #### C MP, ESR, PTH, CBC, CRP #### [place] [address] [place] #### HBCAB, HBSAB, HBSAG, HCV RX PCR #### [facility] , Urea nitrogen [Mass/Vol] 28 mg/dL High 7-25 [facility] Comment on above: Performed By: #### C MP, ESR, PTH, CBC, CRP #### [facility] [address] [place] [address] [place] #### HBCAB, HBSAB, HBSAG, HCV RX PCR #### [facility] , Creatinine [Mass/volume] in Serum or PlasmaOrdered By: Tano Tsai on 09-12-2023 Creatinine [Mass/Vol] 0.74 mg/dL 0.60-1.20 [facility] Eosinophils Auto (Bld) [#/Vo l]Ordered By: Tano Tsai on 09-12-2023 Eosinophils (Bld) [#/Vol] 0.3 10*3/uL 0.0-0.45 [facility] Eosinophils/100 WBC Auto (Bl d)Ordered By: Tano Tsai on 09-12-2023 Eosinophils/100 WBC (Bld) 3.3 % . [facility] Erythrocyte Sedimentation Ra lilo 09-12-2023 ESR (Bld) [Velocity] 26 mm/h Normal 0-29 [facility] Comment on above: Result Comment: PERF ORMED BY: [place] [address] PATHOLOGIST [employer] SYSTEM ADMINISTRATOR VICENTE MONTEZ M.D. Performed By: #### C MP, ESR, PTH, CBC, CRP #### [place] [address] [place] #### HBCAB, HBSAB, HBSAG, HCV RX PCR #### [facility] , Erythrocyte distribution wid th Auto (RBC) [Ratio]Ordered By: Tano Tsai on 09-12-2023 Erythrocyte distribution width (RBC) [Ratio] 14.8 % 11.9-15.3 [facility] Erythrocyte sedimentation ra te by Photometric methodOrdered By: Tano Tsai on 09-12-2023 ESR Photometric method (Bld) [Velocity] 26 mm/hr 0-29 [facility] Globulin Calc (S) [Mass/Vol] Ordered By: Tano Tsai on 09-12-2023 Globulin (S) [Mass/Vol] 2.9 g/dL [facility] Glucose [Mass/volume] in Ser um or PlasmaOrdered By: Tano Tsai on 09-12-2023 Glucose [Mass/Vol] 99 mg/dL 70-100 [facility] Comment on above: ADA recommended refe rence rangeRandom Glucose Reference Range is dependent on time and content of last meal. Glucose of more than 200 mg/dL in a nonstressed, ambulatory subject supports the diagnosis of Diabetes Mellitus. Hematocrit Auto (Bld) [Volum e fraction]Ordered By: Tano Tsai on 09-12-2023 Hematocrit (Bld) [Volume fraction] 40.9 % 34.0-46.4 [facility] Hemoglobin [Mass/volume] in BloodOrdered By: Tano Tsai on 09-12-2023 Hemoglobin (Bld) [Mass/Vol] 13.2 g/dL 11.8-15.4 [facility] Hep C Ab wRfx to Qnt PCRon 0 09-12-2023 Hepatitis C Virus Antibody Non-Reactive Normal Non Reactive [facility] Comment on above: Performed By: #### C MP, ESR, PTH, CBC, CRP #### [address] #### HBCAB, HBSAB, HBSAG, HCV RX PCR #### [facility] , Interpretation Hepatitis C Normal . [facility] Comment on above: Result Comment: Not infected with HCV unless early or acute infection is suspected (which may be delayed in an immunocompromised individual), or other evidence exists to indicate HCV infection. Performed By: #### C MP, ESR, PTH, CBC, CRP #### [address] #### HBCAB, HBSAB, HBSAG, HCV RX PCR #### [facility] , Hepatitis B Core Antibodyon 09-12-2023 Hepatitis B Core Antibody Negative Normal Negative [facility] Comment on above: Result Comment: Perf ormed at: [facility] [place] [id number] Media Buyer: Natanael Banegas PhD, Phone: [phone] Performed By: #### C MP, ESR, PTH, CBC, CRP ####[address]#### HBCAB, HBSAB, HBSAG, HCV RX PCR ####[facility] , Hepatitis B Surface Antibody on 09-12-2023 Hepatitis B Surface Antibody Non-Reactive Normal . [facility] Comment on above: Result Comment: Non Reactive: Inconsistent with immunity, less than 10 mIU/mL Reactive: Consistent with immunity, greater than 9.9 mIU/mL Performed By: #### C MP, ESR, PTH, CBC, CRP #### [address] #### HBCAB, HBSAB, HBSAG, HCV RX PCR #### [facility] , Hepatitis B Surface Antigeno n 09-12-2023 HBsAg Screen Negative Normal Negative [facility] Comment on above: Result Comment: PERF ORMED BY: [place] [address] PATHOLOGIST [employer] SYSTEM ADMINISTRATOR VICENTE MONTEZ M.D. Performed By: #### C MP, ESR, PTH, CBC, CRP ####[facility] [address] [place] [address] [facility]#### HBCAB, HBSAB, HBSAG, HCV RX PCR ####[facility] , Hepatitis B virus surface Ab [Presence] in SerumOrdered By: Tano Tsai on 09-12-2023 HBV surface Ab Ql (S) Non-Reactive . [facility] Comment on above: Non Reactive: Incons istent with immunity, less than 10 mIU/mL Reactive: Consistent with immunity, greater than 9.9 mIU/mL Hepatitis B virus surface Ag [Presence] in Serum or Plasma by ImmunoassayOrdered By: Tano Tsai on 09-12-2023 HBV surface Ag IA Ql Negative Negative [facility] Hepatitis C virus IgG Ab [Pr esence] in Serum or Plasma by ImmunoassayOrdered By: Tano Tsai on 09-12-2023 HCV IgG IA Ql Non-Reactive Non Reactive [facility] Leukocytes [#/volume] correc loan for nucleated erythrocytes in Blood by Automated counOrdered By: Tano Tsai on 09-12-2023 WBC corrected for nucl RBC Auto (Bld) [#/Vol] 9.2 10*3/uL 3.8-11.6 [facility] Lymphocytes Auto (Bld) [#/Vo l]Ordered By: Tano Tsai on 09-12-2023 Lymphocytes (Bld) [#/Vol] 1.9 10*3/uL 1.00-4.8 [facility] Lymphocytes/100 WBC Auto (Bl d)Ordered By: Tano Tsai on 09-12-2023 Lymphocytes/100 WBC (Bld) 21.1 % . [facility] MCH Auto (RBC) [Entitic mass ]Ordered By: Tano Tsai on 09-12-2023 MCH (RBC) [Entitic mass] 27.6 pg 24.7-34.3 [facility] MCHC Auto (RBC) [Mass/Vol]Or dered By: Tano Tsai on 09-12-2023 MCHC (RBC) [Mass/Vol] 32.4 g/dL 32.0-35.0 [facility] MCV Auto (RBC) [Entitic vol] Ordered By: Tano Tsai on 09-12-2023 MCV (RBC) [Entitic vol] 85.2 fL 80-100 [facility] Monocytes Auto (Bld) [#/Vol] Ordered By: Tano Tsai on 09-12-2023 Monocytes (Bld) [#/Vol] 1.0 10*3/uL 0.0-0.8 [facility] Monocytes/100 WBC Auto (Bld) Ordered By: Tano Tsai on 09-12-2023 Monocytes/100 WBC (Bld) 10.5 % . [facility] Neutrophils Auto (Bld) [#/Vo l]Ordered By: Tano Tsai on 09-12-2023 Neutrophils (Bld) [#/Vol] 5.9 10*3/uL 1.8-7.7 [facility] Neutrophils/100 WBC Auto (Bl d)Ordered By: Tano Tsai on 09-12-2023 Neutrophils/100 WBC (Bld) 64.4 % . [facility] No Panel InformationOrdered By: Tano Tsai on 09-12-2023 Estimated GFR (CKD-EPI) > 60.0 mL/Min [facility] Hepatitis B Core Total Antibody Negative Negative [facility] Comment on above: Performed at: [address] [id number] Director: Natanael Banegas PhD, Phone: [phone] Hepatitis C Interpretation See comment . [facility] Comment on above: Not infected with HC V unless early or acute infection issuspected (which may be delayed in an immunocompromisedindividual), or other evidence exists to indicate HCVinfection. Pharmacy Creatinine Clearance (Chem N/A [facility] Nucleated erythrocytes [Pres ence] in Blood by Automated countOrdered By: Tano Tsai on 09-12-2023 Nucleated RBC Auto Ql (Bld) 0.2 /100{WBC} 0-0.5 [facility] Parathyrin.intact [Mass/volu me] in Serum or PlasmaOrdered By: Tano Tsai on 09-12-2023 Parathyrin.intact [Mass/Vol] 34.2 pg/mL [facility] Parathyroid Hormone Intacton 09-12-2023 Parathyroid Hormone Intact 34.2 pg/mL Normal [facility] Comment on above: Result Comment: PERF ORMED BY: [facility] [address] [place] [address] PATHOLOGIST [employer]IX SYSTEM ADMINISTRATOR VICENTE MONTEZ M.D. Performed By: #### C MP, ESR, PTH, CBC, CRP #### [facility] [address] [place] [address] [place] #### HBCAB, HBSAB, HBSAG, HCV RX PCR #### [facility] , Platelet mean volume Auto (B ld) [Entitic vol]Ordered By: Tano Tsai on 09-12-2023 Platelet mean volume (Bld) [Entitic vol] 10.3 fL 6.3-10.7 [facility] Platelets Auto (Bld) [#/Vol] Ordered By: Tano Tsai on 09-12-2023 Platelets (Bld) [#/Vol] 253 10*3/uL 150-450 [facility] Potassium [Moles/volume] in Serum or PlasmaOrdered By: Tano Tsai on 09-12-2023 Potassium [Moles/Vol] 4.2 mmol/L 3.5-5.1 [facility] Protein [Mass/volume] in Ser um or PlasmaOrdered By: Tano Tsai on 09-12-2023 Protein [Mass/Vol] 7.1 g/dL 6.4-8.9 [facility] RBC Auto (Bld) [#/Vol]Ordere d By: Tano Tsai on 09-12-2023 RBC (Bld) [#/Vol] 4.80 10*6/uL 3.60-5.00 [facility] Serum or plasma albumin/glob ulin mass ratioOrdered By: Tano Tsai on 09-12-2023 Albumin/Globulin [Mass ratio] 1.4 {ratio} [facility] Serum or plasma anion gap de terminationOrdered By: Tano Tsai on 09-12-2023 Anion gap [Moles/Vol] 9.7 mmol/L 6.0-15.0 [facility] Sodium [Moles/volume] in Ser um or PlasmaOrdered By: Tano Tsai on 09-12-2023 Sodium [Moles/Vol] 142 mmol/L 136-145 [facility] Urea nitrogen [Mass/volume] in Serum or PlasmaOrdered By: Tano Tsai on 09-12-2023 Urea nitrogen [Mass/Vol] 28 mg/dL 7-25 [facility] WBC Auto (Bld) [#/Vol]Ordere d By: Tano Tsai on 09-12-2023 WBC (Bld) [#/Vol] 9.2 10*3/uL 3.8-11.6 [facility] Basophils Auto (Bld) [#/Vol] on 08-03-2023 Basophils (Bld) [#/Vol] 0.1 10 3/uL 0.0-0.1 [facility] Basophils/100 WBC Auto (Bld) on 08-03-2023 Basophils/100 WBC (Bld) 0.6 % 0.2-2.0 [facility] Eosinophils/100 WBC Auto (Bl d)on 08-03-2023 Eosinophils/100 WBC (Bld) 3.2 % 0.9-7.0 [facility] Erythrocyte distribution wid th Auto (RBC) [Ratio]on 08-03-2023 Erythrocyte distribution width (RBC) [Ratio] 13.7 % 11.0-15.0 [facility] Estimated glomerular filtrat ion rate (GFR) non- Americanon 08-03-2023 GFR/1.73 sq M.predicted among non-blacks MDRD (S/P/Bld) [Vol rate/Area] mL/min/{1.73_m2} >=60 [facility] Globulin Calc (S) [Mass/Vol] on 08-03-2023 Globulin (S) [Mass/Vol] 3.8 g/dL [facility] Hematocrit Auto (Bld) [Volum e fraction]on 08-03-2023 Hematocrit (Bld) [Volume fraction] 38.0 % 36.0-48.0 [facility] Hemoglobin [Mass/volume] in Bloodon 08-03-2023 Hemoglobin (Bld) [Mass/Vol] 11.9 g/dL 12.0-16.0 [facility] Laboratory - Chemistry and C hemistry - challengeon 08-03-2023 Albumin [Mass/Vol] 3.4 g/dL 3.4-5.0 [facility] ALP [Catalytic activity/Vol] 110 U/L 46-116 [facility] ALT [Catalytic activity/Vol] 21 U/L 14-59 [facility] AST [Catalytic activity/Vol] 18 U/L 15-37 [facility] Bilirubin [Mass/Vol] 0.3 mg/dL 0.2-1.0 [facility] Calcium [Mass/Vol] 8.8 mg/dL 8.5-10.1 [facility] Chloride [Moles/Vol] 103 mmol/L 98-107 [facility] CO2 [Moles/Vol] 32.4 mmol/L 21.0-32.0 [facility] Cobalamin (Vitamin B12) [Mass/Vol] 803.0 pg/mL 193.0-986.0 [facility] Creatinine [Mass/Vol] 0.88 mg/dL 0.55-1.02 [facility] GFR/1.73 sq M.predicted MDRD (S/P/Bld) [Vol rate/Area] mL/min/{1.73_m2} >=60 [facility] Glucose [Mass/Vol] 150 mg/dL 74-106 [facility] Potassium [Moles/Vol] 3.6 mmol/L 3.5-5.1 [facility] Protein [Mass/Vol] 7.2 g/dL 6.4-8.2 [facility] Sodium [Moles/Vol] 143 mmol/L 136-145 [facility] TSH Qn 1.282 m[IU]/L 0.358-3.740 [facility] Urea nitrogen [Mass/Vol] 26.0 mg/dL 7.0-18.0 [facility] Urea nitrogen/Creatinine [Mass ratio] 29.5 mg/mg [facility] Laboratory - Hematology and Cell countson 08-03-2023 Immature granulocytes/100 WBC (Bld) 0.3 % 0.0-0.5 [facility] Leukocytes [#/volume] correc loan for nucleated erythrocytes in Blood by Automated counon 08-03-2023 WBC corrected for nucl RBC Auto (Bld) [#/Vol] 8.8 10 3/uL 4.0-11.0 [facility] Lymphocytes Auto (Bld) [#/Vo l]on 08-03-2023 Lymphocytes (Bld) [#/Vol] 2.0 10 3/uL 1.2-3.8 [facility] Lymphocytes/100 WBC Auto (Bl d)on 08-03-2023 Lymphocytes/100 WBC (Bld) 22.7 % 20.5-60.0 [facility] MCH Auto (RBC) [Entitic mass ]on 08-03-2023 MCH (RBC) [Entitic mass] 27.5 pg 26.7-34.0 [facility] MCHC Auto (RBC) [Mass/Vol]on 08-03-2023 MCHC (RBC) [Mass/Vol] 31.3 g/dL 29.9-35.2 [facility] MCV Auto (RBC) [Entitic vol] on 08-03-2023 MCV (RBC) [Entitic vol] 87.8 fL 81.0-99.0 [facility] Monocytes Auto (Bld) [#/Vol] on 08-03-2023 Monocytes (Bld) [#/Vol] 0.9 10 3/uL 0.3-0.8 [facility] Monocytes/100 WBC Auto (Bld) on 08-03-2023 Monocytes/100 WBC (Bld) 9.9 % 1.7-12.0 [facility] Neutrophils Auto (Bld) [#/Vo l]on 08-03-2023 Neutrophils (Bld) [#/Vol] 5.6 10 3/uL 1.4-6.5 [facility] Neutrophils/100 WBC Auto (Bl d)on 08-03-2023 Neutrophils/100 WBC (Bld) 63.3 % 43.0-75.0 [facility] No Panel Informationon 08-02 C-Reactive Protein, Quantitative 1.82 mg/dL <=0.50 [facility] Eosinophils # (Auto) 0.3 10 3/uL 0.0-0.7 [facility] Immature Granulocyte # (Auto) 0.03 10 3/uL 0.00-0.03 [facility] Platelet mean volume Auto (B ld) [Entitic vol]on 08-03-2023 Platelet mean volume (Bld) [Entitic vol] 11.6 fL 9.5-13.5 [facility] Platelets Auto (Bld) [#/Vol] on 08-03-2023 Platelets (Bld) [#/Vol] 279 10 3/uL 150-450 [facility] RBC Auto (Bld) [#/Vol]on RBC (Bld) [#/Vol] 4.33 10 6/uL 4.20-5.40 [facility] Serum nuclear antibody titer on 08-03-2023 Nuclear Ab (S) [Titer] Negative . [facility] Comment on above: Negative <1:80 Borde rline 1:80 Positive >1:80ICAP nomenclature: AC-0For more information about Hep-2 cell patterns useANApatterns.org, the official website for theInternational Consensus on Antinuclear Antibody (ALFONZO)Patterns (ICAP).Performed at: [employer] [address] [id number] Director: Natanael Banegas PhD, Phone: [phone] Serum or plasma albumin/glob ulin mass ratioon 08-03-2023 Albumin/Globulin [Mass ratio] 0.9 {ratio} [facility] Serum or plasma anion gap de terminationon 08-03-2023 Anion gap [Moles/Vol] 11.2 mmol/L [facility] Serum or plasma cyclic adeno sine monophosphate measurement (moles/volume)on 08-03-2023 Adenosine monophosphate.cyclic [Moles/Vol] 3 units 0-19 [facility] Comment on above: Negative <20 Weak po sitive 20 - 39 Moderate positive 40 - 59 Strong positive >59Performed at: [facility] [address] [id number] Director: Natanael Banegas PhD, Phone: [phone] MR LUMBAR SPINE W AND WO CON [...] Received: 12/12/2022 Date Reported 12/20/2022 Submitting Physician: GUSTAVO LI MD Location: [facility] Other External # FINAL DIAGNOSIS A. DUODENAL POLYP, BIOPSY: -- SMALL INTESTINAL MUCOSA DEMONSTRATING DILATED LYMPHATIC VESSELS, NO DYSPLASIA IDENTIFIED. Note: Multiple deeper levels were examined. Electronically Signed Out By ANNY CHU MD/MLC By the signature on this report, the individual or group listed as making the Final Interpretation/Diagnos is certifies that they have reviewed this case. Diagnostic interpretation performed at [place] [address] Clinical History: Physician Contact Number: [phone] Ischemic Time (A): 09:35 Fixative (A): Formalin [...] submitted in toto in one cassette. 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 Refer to note in patient chart for documentation of history and physical. Providers: Gustavo Li MD (Doctor), Sara Castillo RN (Nurse), Maciel Ferrer, Impregnator And Drier Referring: Gustavo Li MD Medicines: See the Anesthesia note [...] biopsy result. 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 All rights reserved. The codes documented in this report are preliminary and upon certified professional coder review may be revised to meet current compliance requirements. Attending Participation: I personally performed the entire procedure. MD Gustavo Enamorado MD 12/12/2022 9:49:01 AM This report has been signed electronically. Number of Addenda: 0 Note Initiated On: 12/12/2022 9:15 AM Total Procedure Duration Time 0 hours 21 minutes 39 seconds [facility] Work Phone: Endoscopic Ultrasound (Upper )Ordered By: Gustavo Li on 12-12-2022 [facility] Work Phone: No Panel Informationon 12-12 [email or web address]} [employer] DO Work Phone: [employer] DO Work Phone: Order Reconciliationon 12-12 Order Reconciliation Page 1 Discharge Reconciliation Document Reconciliation Type: Discharge requested on behalf of Gustavo Li (Physician) done by Gustavo Li) Discharge - Reconciliation: 12-Dec-2022 09:10 by: Gustavo Li) Home Medications EnteredHOME MEDICATIONS AT DISCHARGE [...] day gummy Tums 750 mg daily Normal [facility] Surgical Pathology Depar tmenton 12-12-2022 [facility] Surgical Pathology Department Name LIZZY WELSH Pathologist: ANNY CHU MD Date of Procedure: 12/12/2022 Date Received: 12/12/2022 Date Reported 12/20/2022 Submitting Physician: GUSTAVO LI MD Location: [place] Other External # FINAL DIAGNOSIS A. DUODENAL POLYP, BIOPSY: -- SMALL INTESTINAL MUCOSA DEMONSTRATING DILATED LYMPHATIC VESSELS, NO DYSPLASIA IDENTIFIED. Note: Multiple deeper levels were examined. Electronically Signed Out By ANNY CHU MD/[facility] By the signature on this report, the individual or group listed as making the Final Interpretation/Diagnos is certifies that they have reviewed this case. Diagnostic interpretation performed at [address] [place] [address] Clinical History: Physician Contact Number: [phone] Ischemic Time (A): 09:35 Fixative (A): Formalin [...] submitted in toto in one cassette. mrs/12/13/2022 [facility] Department of Pathology [address] [place] [address] Normal [facility] Comment on above: Performed By: #### U [facility] #### [facility] Surgical Pathology Department [address] [place] [address] Upper EUSon 12-12-2022 Upper EUS PATIENTNAME Patient Name: Lizzy Welsh EXAMDATE Procedure Date: 12/12/2022 9:15 AM PATIENTID PATIENTACCOUNTNUM PATIENTDOB Date of : 1950 ADMITTYPE Admit Type: Outpatient PATIENTROOM Site: [facility] ETHNICITY Ethnicity: Not or RACE Race: White PROVDR Attending MD: Gustavo Li MD, [id number] ENDOPROCEDURENAME Procedure: Upper EUS INDICATION Indications: Duodenal mucosal mass/polyp found on endoscopy, 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 Refer to note in patient chart for documentation of history and physical. PRIMARYPROVIDER Providers: Gustavo Li MD (Doctor), Sara Castillo RN (Nurse), Maciel Ferrer, Impregnator And Drier EDREFPROVIDER Referring: Gustavo Li MD CURRENT_MEDS Medicines: See the Anesthesia [...] result. 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 All rights reserved. The codes documented in this report are preliminary and upon certified professional coder review may be revised to meet current compliance requirements. ATTDRPART Attending Participation: I personally performed the entire procedure. SIGNATURENAME MD Gustavo Enamorado MD SIGNATUREDATE 12/12/2022 9:49:01 AM SIGNATUREONFILEIND This report has been signed electronically. NUMADDENDA Number of Addenda: 0 INITIATEDON Note Initiated On: 12/12/2022 9:15 AM TOTPROCTIME Total Procedure Duration Time 0 hours 21 minutes 39 seconds Normal [facility] Mayur 09-28-2022 L -- ---- Specimen: [id number] Received: 09/28/22 Status: SALVADOR Klaus Num: [id number] Spec Type: Surgical Subm Dr: Niurka Oliveira MD Tissues: A Duodenum - Biopsy (DUODENUM BX) B Esophagus Biopsy (ESOPHABEAL BX) Procedures: HE/4, Gross/Micro L4/2 ---- Age/ Patient Sex Location Account Attending Physician ---- Lizzy Welsh 72/F [id number] Niurka Oliveira MD ---- SPEC NUM: [id number] RECD: 09/28/22 STATUS: SALVADOR DUKE NUM: [id number] ELVA: 09/28/22- [facility] DR: Niurka Oliveira MD ENTERED: 09/28/22 [facility] DR: IDA TYPE: Surgical DEPT: S ORDERED: [...] one cassette labeled C1. ---- ---- Specimen: [id number] Received: 09/28/22 Status: SALVADOR Klaus Num: [id number] Spec Type: Surgical Subm Dr: Niurka Oliveira MD Tissues: A Duodenum - Biopsy (DUODENUM BX) B Esophagus Biopsy (ESOPHABEAL BX) Procedures: Roxie GARCIA/Kashif L4/2 ---- Patient: Lizzy Welsh [id number] (Continued) ---- Signed (signature on file) Baylee Newton MD 09/29/22 1009 Normal [facility] ZAK - TSHon 07-19-2022 TSH 1.271 uIU/mL Normal 0.358-3.740 [facility] Comment on above: Performed By: #### D ATTSH #### [facility] [address] [place] [address] Dr. Gertrudis Peres TSH RANGE SEE BELOW [facility] Comment on above: Result Comment: <0.3 4 UIU/ml HYPERTHYROID 0.34-5.60 UIU/ml EUTHYROID >5.60 UIU/ml HYPOTHYROID Performed By: #### D ATTSH #### [facility] [address] [place] [address] Dr. Gertrudis Peres ZAK - VITAMIN Don 07-19-2022 VIT D 25-OH 26.5 ng/mL [facility] Comment on above: Performed By: #### D ATVITD #### [facility] [address] [place] [address] Dr. Gertrudis Peres VIT D RANGES SEE BELOW [facility] Comment on above: Result Comment: <20 ng/mL Vit D deficient 20 - <30 ng/mL Vit D insufficient 30 - 100 ng/mL Vit D sufficient >100 ng/mL Potential Toxicity Performed By: #### D ATVITD #### [facility] [address] [place] [address] Dr. Gertrudis Peres MG MAMM SCREEN 3D MANDY CADon 06-13-2022 MG MAMM SCREEN 3D MANDY CAD Patient: LIZZY WELSH Exam Date: 06/13/2022 : 1950 Gender:F Ordering : DR MCKINLEY ALFARO D.O. Admission #: [id number] Family : Order #: [id number] CLICK HERE TO VIEW EXAM RADIOLOGY REPORT [...] Treatments None Family Cancers None LOCATION: [facility] BREAST COMPOSITION: Scattered areas fibroglandular density. [...] PALPABLE LUMP SHOULD BE BIOPSIED. Dictated by: Tiffany Rose M.D. on 06/14/2022 at 11:16 Approved by: Tiffany Rose M.D. on 06/14/2022 at 11:22 [facility] XR DEXA BONE DENSITYon 06-13 XR [...] - High Fracture Risk Electronically authenticated by: TIFFANY ROSE Date: 2022-06-13 14:55 [facility] PAP ACOG PANEL 2: 30 to 65on 06-10-2022 . . Normal [facility] Comment on above: Performed By: #### 4 [id number] #### [facility] [address] [place] [address] Dr. Gertrudis Peres Age Gdln ACOG Testing Comment [facility] Comment on above: Result Comment: <21 or >65 or no age provided Performed By: #### 4 [id number] #### [facility] [address] [place] [address] Dr. Gertrudis Peres DIAGNOSIS: Comment [facility] Comment on above: Result Comment: NEGA TIVE FOR INTRAEPITHELIAL LESION OR MALIGNANCY. Performed By: #### 4 [id number] #### [facility] [address] [place] [address] Dr. Gertrudis Peres Methodology: Comment [facility] Comment on above: Result Comment: This liquid based ThinPrep(R) pap test was screened with the use of an image guided system. Performed By: #### 4 [id number] #### [facility] [address] [place] [address] Dr. Gertrudis Peres Note: Comment [facility] Comment on above: Result Comment: The Pap smear is a screening test designed to aid in the detection of premalignant and malignant conditions of the uterine cervix. It is not a diagnostic procedure and should not be used as the sole means of detecting cervical cancer. Both false-positive and false-negative reports do occur. . Performed By: #### 4 [id number] #### [facility] [address] [place] [address] Dr. Gertrudis Peres Performed by: Comment Normal [facility] Comment on above: Result Comment: [employer] (ASCP) Performed By: #### 4 [id number] #### [facility] [address] [place] [address] Dr. Gertrudis Peres Specimen adequacy: Comment Normal [facility] Comment on above: Result Comment: Sati sfactory for evaluation. Endocervical and/or squamous metaplastic cells (endocervical component) are present. Performed By: #### 4 [id number] #### [facility] [address] [place] [address] Dr. Gertrudis Peres XR HIPS MANDY 5V [...] by: NICANOR NAQVI Date: 2022-05-03 16:34 [facility] CBC AUTO DIFFon 03-31-2022 BASO # 0.0 103/ul Normal 0.0-0.1 [facility] Comment on above: Performed By: #### C BC #### [facility] [address] [place] [address] [address] Gertrudis Peres Basophils/100 WBC (Bld) 0.5 % Normal 0.2-2.0 [facility] Comment on above: Performed By: #### C BC #### [facility] [address] [place] [address] [address] Gertrudis Peres EO # 0.3 103/ul Normal 0.0-0.7 [facility] Comment on above: Performed By: #### C BC #### [facility] [address] [place] [address] [address] Gertrudis Peres Eosinophils/100 WBC (Bld) 4.3 % Normal 0.9-7.0 [facility] Comment on above: Performed By: #### C BC #### [facility] [address] [place] [address] Dr. Gertrudis Peres Erythrocyte distribution width (RBC) [Ratio] 13.2 % Normal 11.0-15.0 [facility] Comment on above: Performed By: #### C BC #### [facility] [address] [place] [address] Dr. Gertrudis Peres Hematocrit (Bld) [Volume fraction] 37.9 % Normal 36.0-48.0 [facility] Comment on above: Performed By: #### C BC #### [facility] [address] [place] [address] Dr. Gertrudis Peres Hemoglobin (Bld) [Mass/Vol] 12.7 g/dL Normal 12.0-16.0 [facility] Comment on above: Performed By: #### C BC #### [facility] [address] [place] [address] Dr. Gertrudis Peres IG # 0.02 10e3/ul Normal 0.00-0.03 [facility] Comment on above: Performed By: #### C BC #### [facility] [address] [place] [address] Dr. Gertrudis Peres IG % 0.3 % Normal 0.0-0.5 [facility] Comment on above: Performed By: #### C BC #### [facility] [address] [place] [address] Dr. Gertrudis Peres LYMPH # 1.7 103/ul Normal 1.2-3.8 [facility] Comment on above: Performed By: #### C BC #### [facility] [address] [place] [address] Dr. Gertrudis Peres Lymphocytes/100 WBC (Bld) 26.4 % Normal 20.5-60.0 [facility] Comment on above: Performed By: #### C BC #### [facility] [address] [place] [address] Dr. Gertrudis Peres MANUAL DIFF REQ NO Normal [facility] Comment on above: Performed By: #### C BC #### [facility] [address] [place] [address] Dr. Gertrudis Peres MCH (RBC) [Entitic mass] 28.6 pg Normal 26.7-34.0 [facility] Comment on above: Performed By: #### C BC #### [facility] [address] [place] [address] Dr. Gertrudis Peres MCHC (RBC) [Mass/Vol] 33.5 g/dL Normal 29.9-35.2 [facility] Comment on above: Performed By: #### C BC #### [facility] [address] [place] [address] Dr. Gertrudis Peres MCV (RBC) [Entitic vol] 85.4 fL Normal 81.0-99.0 [facility] Comment on above: Performed By: #### C BC #### [facility] [address] [place] [address] Dr. Gertrudis Peres MONO # 0.5 103/ul Normal 0.3-0.8 [facility] Comment on above: Performed By: #### C BC #### [facility] [address] [place] [address] Dr. Gertrudis Peres Monocytes/100 WBC (Bld) 8.1 % Normal 1.7-12.0 [facility] Comment on above: Performed By: #### C BC #### [facility] [address] [place] [address] Dr. Gertrudis Peres NEUT # 3.9 103/ul Normal 1.4-6.5 [facility] Comment on above: Performed By: #### C BC #### [facility] [address] [place] [address] Dr. Gertrudis Peres Neutrophils/100 WBC (Bld) 60.4 % Normal 43.0-75.0 [facility] Comment on above: Performed By: #### C BC #### [facility] [address] [place] [address] Dr. Gertrudis Peres Platelet mean volume (Bld) [Entitic vol] 11.3 fL Normal 9.5-13.5 [facility] Comment on above: Performed By: #### C BC #### [facility] [address] [place] [address] Dr. Gertrudis Peres PLT 215 103/ul Normal 150-450 [facility] Comment on above: Performed By: #### C BC #### [facility] [address] [place] [address] Dr. Gertrudis Peres RBC 4.44 106/ul Normal 4.20-5.40 [facility] Comment on above: Performed By: #### C BC #### [facility] [address] [place] [address] Dr. Gertrudis Peres WBC 6.5 103/ul Normal 4.0-11.0 [facility] Comment on above: Performed By: #### C BC #### [facility] [address] [place] [address] Dr. Gertrudis Peres PROF 14(COMP METB)on 022 Albumin [Mass/Vol] 3.7 g/dL Normal 3.4-5.0 [facility] Comment on above: Performed By: #### C MP #### [facility] [address] [place] [address] Dr. Gertrudis Peres Albumin/Globulin [Mass ratio] 1.1 {ratio} Normal [facility] Comment on above: Performed By: #### C MP #### [facility] [address] [place] [address] Dr. Gertrudis Peres ALP [Catalytic activity/Vol] 112 U/L Normal 46-116 [facility] Comment on above: Performed By: #### C MP #### [facility] [address] [place] [address] Dr. Gertrudis Peres ALT [Catalytic activity/Vol] 23 U/L Normal 14-59 [facility] Comment on above: Performed By: #### C MP #### [facility] [address] [place] [address] Dr. Gertrudis Peres Anion gap [Moles/Vol] 7.1 mmol/L Normal [facility] Comment on above: Performed By: #### C MP #### [facility] [address] [place] [address] Dr. Gertrudis Peres AST [Catalytic activity/Vol] 18 U/L Normal 15-37 [facility] Comment on above: Performed By: #### C MP #### [facility] [address] [address] [address] Gertrudis Peres Bilirubin [Mass/Vol] 0.4 mg/dL Normal 0.2-1.0 [facility] Comment on above: Performed By: #### C MP #### [facility] [address] [address] [address] Gertrudis Peres Calcium [Mass/Vol] 8.6 mg/dL Normal 8.5-10.1 [facility] Comment on above: Performed By: #### C MP #### [facility] [address] [address] [address] Gertrudis Peres Chloride [Moles/Vol] 105 mmol/L Normal 98-107 [facility] Comment on above: Performed By: #### C MP #### [facility] [address] [address] [address] Gertrudis Peres CO2 [Moles/Vol] 34.0 mmol/L Critically high 21.0-32.0 [facility] Comment on above: Performed By: #### C MP #### [facility] [address] [address] [address] Gertrudis Peres Creatinine [Mass/Vol] 0.80 mg/dL Normal 0.55-1.02 [facility] Comment on above: Performed By: #### C MP #### [facility] [address] [address] [address] Gertrudis Peres EGFR-AF GAMBIAN >60 Normal >=60 [facility] Comment on above: Performed By: #### C MP #### [facility] [address] [address] [address] Gertrudis Peres EGFR-NON AF GAMBIAN >60 Normal >=60 [facility] Comment on above: Performed By: #### C MP #### [facility] [address] [address] [address] Gertrudis Peres Globulin (S) [Mass/Vol] 3.5 g/dL Normal [facility] Comment on above: Performed By: #### C MP #### [facility] [address] [address] [address] Gertrudis Peres Glucose [Mass/Vol] 119 mg/dL Critically high 74-106 [facility] Comment on above: Performed By: #### C MP #### [facility] [address] [address] [address] Gertrudis Peres Potassium [Moles/Vol] 3.1 mmol/L Critically low 3.5-5.1 [facility] Comment on above: Performed By: #### C MP #### [facility] [address] [address] [address] Gertrudis Peres Protein [Mass/Vol] 7.2 g/dL Normal 6.4-8.2 [facility] Comment on above: Performed By: #### C MP #### [facility] [address] [address] [address] Gertrudis Peres Sodium [Moles/Vol] 143 mmol/L Normal 136-145 [facility] Comment on above: Performed By: #### C MP #### [facility] [address] [address] [address] Gertrudis Peres Urea nitrogen [Mass/Vol] 24.0 mg/dL Critically high 7.0-18.0 [facility] Comment on above: Performed By: #### C MP #### [facility] [address] [address] [address] Gertrudis Peres Urea nitrogen/Creatinine [Mass ratio] 30.0 mg/mg Normal [facility] Comment on above: Performed By: #### C MP #### [facility] [address] [address] [address] Gertrudis Peres US SINGLE QUAD UMBILon [...] performed if clinically indicated. Electronically authenticated by: TIFFANY ROSE Date: 2021-09-29 14:52 Normal [facility] CBC with Diffon 10-04-2018 Abs. Basophil 0.05 k/uL Normal 0.00-0.20 [facility] Comment on above: Performed By: #### C MPX, CDP #### [facility] [address] [place], [place] [phone] Media Buyer: Peter Conklin MD Abs.Imm.Granulocyte <0.03 Normal 0.00-0.30 [facility] Comment on above: Performed By: #### C MPX, CDP #### [address] [place] [address] Media Buyer: Peter Conklin MD Abs.Neutrophil (Seg) 4.64 k/uL Normal 1.50-8.10 [facility] Comment on above: Performed By: #### C MPX, CDP #### [address] [place] [address] Media Buyer: Peter Conklin MD Auto Diff Performed NOT REPORTED Normal [facility] Comment on above: Performed By: #### C MPX, CDP #### [address] [place] [address] Media Buyer: Peter Conklin MD Basophils/100 WBC (Bld) 1 % Normal 0-2 [facility] Comment on above: Performed By: #### C MPX, CDP #### [address] [place], [place] [id number] Media Buyer: Peter Conklin MD Eosinophils #/vol (Bld) 0.35 10*3/uL Normal 0.00-0.44 [facility] Comment on above: Performed By: #### C MPX, CDP #### [facility] [address] [place], [place] [phone] Media Buyer: Peter Conklin MD Eosinophils/100 WBC (Bld) 4 % Normal 1-4 [facility] Comment on above: Performed By: #### C MPX, CDP #### [facility] [address] [place], [place] [address]83 Media Buyer: Peter Conklin MD Erythrocyte distribution width Ratio (RBC) 13.8 % Normal 11.8-14.4 [facility] Comment on above: Performed By: #### C MPX, CDP #### [facility] [address] [place], [facility] Media Buyer: Peter Conklin MD Hematocrit Volume Fraction (Bld) 44.8 % Normal 36.3-47.1 [facility] Comment on above: Performed By: #### C MPX, CDP #### [facility] [address] [place], [facility] Media Buyer: Peter Conklin MD Hemoglobin mass conc (Bld) 14.1 g/dL Normal 11.9-15.1 [facility] Comment on above: Performed By: #### C MPX, CDP #### [facility] [address] [place], [facility] Media Buyer: Peter Conklin MD Immature granulocytes #/vol (Bld) 0 % Normal 0 [facility] Comment on above: Performed By: #### C MPX, CDP #### [facility] [address] [place], [facility] Media Buyer: Peter Conklin MD Lymphocytes #/vol (Bld) 2.23 10*3/uL Normal 1.10-3.70 [facility] Comment on above: Performed By: #### C MPX, CDP #### [facility] [address] [place], [place] 134[address]83 Media Buyer: Peter Conklin MD Lymphocytes/100 WBC (Bld) 27 % Normal 24-43 [facility] Comment on above: Performed By: #### C MPX, CDP #### [facility] [address] [place], [place] [phone] Media Buyer: Peter Conklin MD MCH Entitic mass (RBC) 27.8 pg Normal 25.2-33.5 [facility] Comment on above: Performed By: #### C MPX, CDP #### [facility] [address] [place], [place] 537[address]83 Media Buyer: Peter Conklin MD MCHC mass conc (RBC) 31.5 g/dL Normal 28.4-34.8 [facility] Comment on above: Performed By: #### C MPX, CDP #### [facility] [address] [place], [place] 328[address]83 Media Buyer: Peter Conklin MD MCV Entitic volume (RBC) 88.4 fL Normal 82.6-102.9 [facility] Comment on above: Performed By: #### C MPX, CDP #### [facility] [address] [place] [address] Media Buyer: Peter Conklin MD Monocytes #/vol (Bld) 0.84 10*3/uL Normal 0.10-1.20 [facility] Comment on above: Performed By: #### C MPX, CDP #### [facility] [address] [place], [place] 3055483 Media Buyer: Peter Conklin MD Monocytes/100 WBC (Bld) 10 % Normal 3-12 [facility] Comment on above: Performed By: #### C MPX, CDP #### [facility] [address] [place] [address] Media Buyer: Peter Conklin MD Neutrophil (Seg) 58 % Normal 36-65 [facility] Comment on above: Performed By: #### C MPX, CDP #### [facility] [address] [place], [place] [address]83 Media Buyer: Peter Conklin MD NRBC Automated 0.0 per 100 WBC Normal 0.0 [facility] Comment on above: Performed By: #### C MPX, CDP #### [facility] [address] [place], [place] 3770683 Media Buyer: Peter Conklin MD Platelet mean volume Entitic volume (Bld) 11.7 fL Normal 8.1-13.5 [facility] Comment on above: Performed By: #### C MPX, CDP #### [facility] [address] [place], [place] [phone] Media Buyer: Peter Conklin MD Platelets #/vol (Bld) NOT REPORTED Normal [facility] Comment on above: Performed By: #### C MPX, CDP #### [facility] [address] [place] [address] Media Buyer: Peter Conklin MD Platelets #/vol (Bld) 269 10*3/uL Normal 138-453 [facility] Comment on above: Performed By: #### C MPX, CDP #### [address] [place], [place] [address]1983 Media Buyer: Peter Conklin MD RBC #/vol (Bld) 5.07 10*6/uL Normal 3.95-5.11 [facility] Comment on above: Performed By: #### C MPX, CDP #### [facility] [address] [place], [place] [address]83 Media Buyer: Peter Conklin MD RBC morphology finding Nom (Bld) NOT REPORTED Normal [facility] Comment on above: Performed By: #### C MPX, CDP #### [facility] [address] [place], [place] 324[address]83 Media Buyer: Peter Conklin MD WBC #/vol (Bld) 8.1 10*3/uL Normal 3.5-11.3 [facility] Comment on above: Performed By: #### C MPX, CDP #### [facility] [address] [place] [address] Media Buyer: Peter Conklin MD WBC Morphology NOT REPORTED Normal [facility] Comment on above: Performed By: #### C MPX, CDP #### [facility] [address] [place] [address] Media Buyer: Peter Conklin MD CT ABDOMEN PELVIS WO [...] Sushant Dobbs MD 10/04/18 Final result Normal [facility] Comp Metabolic Pr/rfx MGon 0 10-04-2018 (cont.) Normal [facility] Comment on above: Result Comment: Aver age GFR for 60-69 years old: 85 mL/min/1.73sq m Chronic Kidney Disease: <60 mL/min/1.73sq m Kidney failure: <15 mL/min/1.73sq m eGFR calculated using average adult body mass. Additional eGFR calculator available at: http://www.[employer]/multiple_crcl_2011.htm Performed By: #### C MPX, CDP #### [facility] [address] [place] [address] [place] [address] Media Buyer: Peter Conklin MD Albumin mass conc 4.3 g/dL Normal 3.5-5.2 [facility] Comment on above: Performed By: #### C MPX, CDP #### [facility] [address] [place] [address] Media Buyer: Peter Conklin MD Albumin/Globulin mass ratio 1.2 {ratio} Normal 1.0-2.5 [facility] Comment on above: Performed By: #### C MPX, CDP #### [facility] [address] [place] [address] Media Buyer: Peter Conklin MD Alkaline Phos 184 U/L High 35-104 [facility] Comment on above: Performed By: #### C MPX, CDP #### [facility] [address] [place] [address] Media Buyer: Peter Conklin MD ALT enzyme act/vol 16 U/L Normal 5-33 [facility] Comment on above: Performed By: #### C MPX, CDP #### [facility] [address] [place], [place] [phone] Media Buyer: Peter Conklin MD Anion gap molar conc 13 mmol/L Normal 9-17 [facility] Comment on above: Performed By: #### C MPX, CDP #### [facility] [address] [place], [place] 3374783 Media Buyer: Peter Conklin MD AST enzyme act/vol 20 U/L Normal <32 [facility] Comment on above: Performed By: #### C MPX, CDP #### [facility] [address] [place], [place] [phone] Media Buyer: Peter Conklin MD Bilirubin Ql (U) 0.36 mg/dL Normal 0.3-1.2 [facility] Comment on above: Performed By: #### C MPX, CDP #### [facility] [address] [place], [place] 455[address]83 Media Buyer: Peter Conklin MD BUN/CRE Ratio 53 High 9-20 [facility] Comment on above: Performed By: #### C MPX, CDP #### [facility] [address] [place], [place] 8[address]83 Media Buyer: Peter Conklin MD Calcium mass conc 9.2 mg/dL Normal 8.6-10.4 [facility] Comment on above: Performed By: #### C MPX, CDP #### [facility] [address] [place], [place] 02[address]83 Media Buyer: Peter Conklin MD Chloride molar conc 103 mmol/L Normal 98-107 [facility] Comment on above: Performed By: #### C MPX, CDP #### [facility] [address] [place], [place] 8388583 Media Buyer: Peter Conklin MD CO2 molar conc 25 mmol/L Normal 20-31 [facility] Comment on above: Performed By: #### C MPX, CDP #### [facility] [address] [place], [place] 5859383 Media Buyer: Peter Conklin MD Creatinine mass conc 0.60 mg/dL Normal 0.50-0.90 [facility] Comment on above: Performed By: #### C MPX, CDP #### [facility] [address] [place], [place] 1542683 Media Buyer: Peter Conklin MD GFR, Amer >60 Normal >60 [facility] Comment on above: Performed By: #### C MPX, CDP #### [facility] [address] [place], [place] 5759783 Media Buyer: Peter Conklin MD GFR,non Amer >60 Normal >60 [facility] Comment on above: Performed By: #### C MPX, CDP #### [facility] [address] [place], [place] 3082683 Media Buyer: Peter Conklin MD Glucose mass conc 123 mg/dL High 70-99 [facility] Comment on above: Performed By: #### C MPX, CDP #### [facility] [address] [place], [place] 649[address]83 Media Buyer: Peter Conklin MD Potassium molar conc 4.0 mmol/L Normal 3.7-5.3 [facility] Comment on above: Performed By: #### C MPX, CDP #### [facility] [address] [place], [place] 489[address]83 Media Buyer: Peter Conklin MD Protein mass conc 7.8 g/dL Normal 6.4-8.3 [facility] Comment on above: Performed By: #### C MPX, CDP #### [facility] [address] [place], [place] 7895583 Media Buyer: Peter Conklin MD Sodium molar conc 141 mmol/L Normal 135-144 [facility] Comment on above: Performed By: #### C MPX, CDP #### [facility] [address] [place] [address] Media Buyer: Pteer Conklin MD Staging: Normal [facility] Comment on above: Result Comment: Stag e 1: Some kidney damage normal GFR Stage 2: Mild kidney damage GFR 60-89 Stage 3: Moderate kidney damage GFR 30-59 Stage 4: Severe kidney damage GFR 15-29 Stage 5: Severe kidney damage GFR <15 ESRD - chronic treatment by dialysis or transplant Performed By: #### C MPX, CDP #### [facility] [address] [place] [address] Media Buyer: Peter Conklin MD Urea nitrogen mass conc 32 mg/dL High 8-23 [facility] Comment on above: Performed By: #### C MPX, CDP #### [facility] [address] [place], [place] 9180383 Media Buyer: Peter Conklin MD Urinalysis, Routineon 2018 Acetoacetic Acid,Ur Negative Normal NEG [facility] Comment on above: Performed By: #### U ATERESAO #### [facility] [address] [place], [place] 3616483 Media Buyer: Peter Conklin MD Bilirubin, SemiQt,Ur Negative Normal NEG [facility] Comment on above: Performed By: #### U A, UMICAO #### [facility] [address] [place], [place] 888[address]83 Media Buyer: Peter Conklin MD Color Nom (U) YELLOW Normal L [facility] Comment on above: Performed By: #### U A, UMICAO #### [facility] [address] [place] [address] Media Buyer: Peter Conklin MD Comment NOT REPORTED [facility] Comment on above: Performed By: #### U A, UMICAO #### [facility] [address] [place] [address] Media Buyer: Peter Conklin MD Glucose,Semi-qnt,Ur Negative Normal [facility] Comment on above: Performed By: #### U A, UMICAO #### [facility] [address] [place] [address] Media Buyer: Peter Conklin MD Hemoglobin, Ur 3+ Abnormal NEG [facility] Comment on above: Performed By: #### U A, UMICAO #### [facility] [address] [place] [address] Media Buyer: Peter Conklin MD Leuckocyte Esterase SMALL Abnormal NEG [facility] Comment on above: Performed By: #### U A, UMICAO #### [facility] [address] [place] [address] Dr[address] [place], [place] [address] Media Buyer: Peter Conklin MD Nitrite,Ur Negative Normal [facility] Comment on above: Performed By: #### U A, UMICAO #### [address] [place], [place] [address] Media Buyer: Peter Conklin MD PH,Ur 5.5 Normal 5.0-9.0 [facility] Comment on above: Performed By: #### U A, UMICAO #### [facility] [address] [place] [address] Dr[address] [place], [place] [address] Media Buyer: Peter Conklin MD Protein mass conc (U) TRACE Abnormal NEG [facility] Comment on above: Performed By: #### U A, UMICAO #### [facility] [address] [place] [address] Media Buyer: Peter Conklin MD Spec. [place],Ur >1.030 High 1.010-1.020 [facility] Comment on above: Performed By: #### U A, UMICAO #### [facility] [address] [place] [phone] Media Buyer: Peter Conklin MD Turbidity SLIGHTLY CLOUDY Abnormal CLEAR [facility] Comment on above: Performed By: #### U A, UMICAO #### [facility] [address] [place], [place] 497[address]83 Media Buyer: Peter Conklin MD Urobilinogen,Ur Normal Normal NORM [facility] Comment on above: Performed By: #### U A, UMICAO #### [facility] [address] [place], [facility] Media Buyer: Peter Conklin MD Urinalysis,Microon 9 ----- Normal [facility] Comment on above: Performed By: #### U A, UMICAO #### [address] [place], [facility] Media Buyer: Peter Conklin MD Amorphous sediment LM Ql (Urine sed) NOT REPORTED Normal [facility] Comment on above: Performed By: #### U A, UMICAO #### [address] [place], [place] [address] Media Buyer: Peter Conklin MD Bacteria LM.HPF #/area (Urine sed) TRACE Abnormal [facility] Comment on above: Performed By: #### U A, UMICAO #### [facility] [address] [place] [address] Dr[address] [place], [facility] Media Buyer: Peter Conklin MD Casts LM.LPF #/area (Urine sed) NOT REPORTED Normal [facility] Comment on above: Performed By: #### U A, UMICAO #### [facility] [address] [place], [place] [phone] Media Buyer: Peter Conklin MD Crystals LM Nom (Urine sed) NOT REPORTED Normal [facility] Comment on above: Performed By: #### U A, UMICAO #### [facility] [address] [place] [address] Media Buyer: Peter Conklin MD Epithelial cells LM.HPF #/area (Urine sed) 2 TO 5 Normal 0-25 [facility] Comment on above: Performed By: #### U A, UMICAO #### [facility] [address] [place] [address] Media Buyer: Peter Conklin MD Epithelial, Renal NOT REPORTED Normal 0 [facility] Comment on above: Performed By: #### U A, UMICAO #### [facility] [address] [place], [place] 9075383 Media Buyer: Peter Conklin MD Mucus Strands TRACE Abnormal NONE [facility] Comment on above: Performed By: #### U A, UMICAO #### [facility] [address] [place], [facility] Media Buyer: Peter Conklin MD Other Observations NOT REPORTED Normal NREQ [facility] Comment on above: Performed By: #### U A, UMICAO #### [facility] [address] [place], [place] [address] Media Buyer: Peter Conklin MD RBC #/vol (U) 50 TO 100 Normal 0-2 [facility] Comment on above: Performed By: #### U A, UMICAO #### [facility] [address] [place], [facility] Media Buyer: Peter Conklin MD Trichomonas NOT REPORTED Normal NONE [facility] Comment on above: Performed By: #### U A, UMICAO #### [facility] [address] [place], [place] 360[address]883 Media Buyer: Peter Conklin MD WBC #/vol (U) 2 TO 5 Normal 0-5 [facility] Comment on above: Performed By: #### U A, UMICAO #### [facility] [address] [place] [address] Media Buyer: Peter Conklin MD Yeast LM Ql (Urine sed) NOT REPORTED Normal NONE [facility] Comment on above: Performed By: #### U ELBA Nagy #### [facility] [address] [place] [address] Media Buyer: Peter Conklin MD Social History Date Type Detail Facility Start: 09-28-2022 Tobacco smoking status NHIS Never smoked tobacco (finding) [facility] Start: 1950 Sex Assigned At Female F [facility] Start: 1950 Sex Assigned At Not on file U [facility] Work Phone: Unknown if ever smoked [facility] [employer] Other Sex Assigned At [facility] [employer] Other Tobacco smoking status ARIS Tobacco smoking consumption unknown [facility] Work Phone: Vital Signs Date Time Vital Sign Value Performing Clinician Facility 10-30-2023 09:35-0400 Body height 160.02 cm DO Mckinley Ball Work Phone: [facility] 10-30-2023 09:35-0400 Body mass index (BMI) [Ratio] 37.3 kg/m2 DO Mckinley Ball Work Phone: [facility] 10-30-2023 09:35-0400 Body weight 95.42 kg DO Mckinley Ball Work Phone: [facility] 10-30-2023 09:35-0400 Diastolic blood pressure 89 mm[Hg] DO Mckinley Ball Work Phone: [facility] 10-30-2023 09:35-0400 Heart rate 82 /min DO Mckinley Ball Work Phone: [facility] 10-30-2023 09:35-0400 Respiratory rate 12 /min DO Mckinley Ball Work Phone: [facility] 10-30-2023 09:35-0400 Systolic blood pressure 164 mm[Hg] DO Mckinley Ball Work Phone: [facility] 10-12-2023 09:18-0400 Body height 160.02 cm DO Mckinley Ball Work Phone: [facility] 10-12-2023 09:18-0400 Body mass index (BMI) [Ratio] 37 kg/m2 DO Mckinley Ball Work Phone: [facility] 10-12-2023 09:18-0400 Body weight 94.85 kg DO Mckinley Ball Work Phone: [facility] 10-12-2023 09:18-0400 Diastolic blood pressure 77 mm[Hg] DO Mckinley Ball Work Phone: [facility] 10-12-2023 09:18-0400 Heart rate 77 /min DO Mckinley Ball Work Phone: [facility] 10-12-2023 09:18-0400 Respiratory rate 12 /min DO Mckinley Ball Work Phone: [facility] 10-12-2023 09:18-0400 Systolic blood pressure 148 mm[Hg] DO Mckinley Ball Work Phone: [facility] 07-30-2023 15:01-0400 Body height 160.02 cm DO Mckinley Ball Work Phone: [facility] 07-30-2023 15:01-0400 Body mass index (BMI) [Ratio] 36.6 kg/m2 DO Mckinley Ball Work Phone: [facility] 07-30-2023 15:01-0400 Body weight 93.66 kg DO Mkcinley Ball Work Phone: [facility] 07-30-2023 15:01-0400 Diastolic blood pressure 90 mm[Hg] DO Mckinley Ball Work Phone: [facility] 07-30-2023 15:01-0400 Heart rate 75 /min DO Mckinley Ball Work Phone: [facility] 07-30-2023 15:01-0400 Systolic blood pressure 149 mm[Hg] DO Mckinley Ball Work Phone: [facility] 06-13-2023 09:00-0500 Body height 161.29 cm Mckinley Ball Other [employer] Other 06-13-2023 09:00-0500 Body mass index (BMI) [Ratio] 35.43 kg/m2 Mckinley Ball Other [employer] Other 06-13-2023 09:00-0500 Body weight 92.17 kg Mckinley Ball Other [employer] Other 06-13-2023 09:00-0500 Diastolic blood pressure 77 mm[Hg] Mckinley Ball Other [employer] Other 06-13-2023 09:00-0500 Respiratory rate 12 /min Mckinley Ball Other [employer] Other 06-13-2023 09:00-0500 Systolic blood pressure 127 mm[Hg] Mckinley Ball Other [employer] Other 05-03-2023 08:30-0500 Body height 161.29 cm Mckinley Ball Other [employer] Other 05-03-2023 08:30-0500 Body mass index (BMI) [Ratio] 35.39 kg/m2 Mckinley Ball Other [employer] Other 05-03-2023 08:30-0500 Body weight 92.08 kg Mckinley Ball Other [employer] Other 05-03-2023 08:30-0500 Diastolic blood pressure 79 mm[Hg] Mckinley Ball Other [employer] Other 05-03-2023 08:30-0500 Respiratory rate 12 /min Mckinley Ball Other [employer] Other 05-03-2023 08:30-0500 Systolic blood pressure 133 mm[Hg] Mckinley Ball Other [employer] Other 03-08-2023 09:30-0400 Body height 161.29 cm Mckinley Ball Other [employer] Other 03-08-2023 09:30-0400 Body mass index (BMI) [Ratio] 35.01 kg/m2 Mckinley Ball Other [employer] Other 03-08-2023 09:30-0400 Body weight 91.08 kg Mckinley Ball Other [facility] Other 03-08-2023 09:30-0400 Diastolic blood pressure 83 mm[Hg] Mckinley Ball Other [employer] Other 03-08-2023 09:30-0400 Respiratory rate 12 /min Mckinley Ball Other [employer] Other 03-08-2023 09:30-0400 Systolic blood pressure 134 mm[Hg] Mckinley Ball Other [employer] Other 01-04-2023 11:30-0400 Body height 161.29 cm Mckinley Ball Other [employer] Other 01-04-2023 11:30-0400 Body mass index (BMI) [Ratio] 34.69 kg/m2 Mckinley Ball Other [employer] Other 01-04-2023 11:30-0400 Body weight 90.27 kg Mckinley Ball Other [employer] Other 01-04-2023 11:30-0400 Diastolic blood pressure 81 mm[Hg] Mckinley Alfaro Other [employer] Other 01-04-2023 11:30-0400 Respiratory rate 12 /min Mckinley Ball Other [employer] Other 01-04-2023 11:30-0400 Systolic blood pressure 131 mm[Hg] Mckinley Ball Other [employer] Other 12-12-2022 07:50-0400 Body height 153.1 cm Gustavo Li MD Work Phone: [facility] 12-12-2022 07:50-0400 Body mass index (BMI) [Ratio] 38.4 kg/m2 Gustavo Li MD Work Phone: [facility] 12-12-2022 07:50-0400 Body weight 90 kg Gustavo Li MD Work Phone: [facility] 11-01-2022 14:30-0400 Body height 161.29 cm Keara Bullard Other [employer] Other 11-01-2022 14:30-0400 Body mass index (BMI) [Ratio] 35.22 kg/m2 Keara Bullard Other [facility] Other 11-01-2022 14:30-0400 Body weight 91.63 kg Keara Bullard Other [facility] Other 11-01-2022 14:30-0400 Diastolic blood pressure 84 mm[Hg] Keara Bullard Other [employer] Other 11-01-2022 14:30-0400 Systolic blood pressure 130 mm[Hg] Keara Bullard Other [facility] [employer] Other 09-28-2022 10:05-0400 Diastolic blood pressure 75 mm[Hg] DO Arnoldo Seva Coffee Work Phone: [facility] 09-28-2022 10:05-0400 Heart rate 60 /min DO Arnoldo Seva Coffee Work Phone: [facility] 09-28-2022 10:05-0400 Respiratory rate 16 /min DO Arnoldo Seva Coffee Work Phone: [facility] 09-28-2022 10:05-0400 SaO2% (BldA) [Mass fraction] 98 % DO Arnoldo Seva Coffee Work Phone: [facility] 09-28-2022 10:05-0400 Systolic blood pressure 153 mm[Hg] DO Arnoldo Seva Coffee Work Phone: [facility] 09-28-2022 07:48-0400 Body height 160.02 cm DO Arnoldo Seva Coffee Work Phone: [facility] 09-28-2022 07:48-0400 Body temperature 98.9 [degF] DO Arnoldo Seva Coffee Work Phone: [facility] 09-28-2022 07:48-0400 Body weight 93.89 kg DO Arnoldo Seva Coffee Work Phone: [facility] 07-04-2022 09:30-0500 Body height 161.29 cm Mckinley Ball Other [facility] [employer] Other 07-04-2022 09:30-0500 Body mass index (BMI) [Ratio] 36.3 kg/m2 Mckinley Ball Other [employer] Other 07-04-2022 09:30-0500 Body weight 94.44 kg Mckinley Ball Other [employer] Other 07-04-2022 09:30-0500 Diastolic blood pressure 78 mm[Hg] Mckinley Ball Other [employer] Other 07-04-2022 09:30-0500 Respiratory rate 12 /min Mckinley Ball Other [employer] Other 07-04-2022 09:30-0500 Systolic blood pressure 122 mm[Hg] Mckinley Ball Other [employer] Other 03-09-2022 15:30-0400 Body height 161.29 cm Arabella Hawk Other [employer] Other 03-09-2022 15:30-0400 Body mass index (BMI) [Ratio] 36.79 kg/m2 Arabella Hawk Other [facility] Other 03-09-2022 15:30-0400 Body temperature 97.1 [degF] Arabella Arechiga Other [employer] Other 03-09-2022 15:30-0400 Body weight 95.71 kg Arabella Hawk Other [employer] Other 03-09-2022 15:30-0400 Diastolic blood pressure 85 mm[Hg] Arabella Arechiga Other [employer] Other 03-09-2022 15:30-0400 Respiratory rate 18 /min Arabella Arechiga Other [employer] Other 03-09-2022 15:30-0400 SaO2% (BldA) [Mass fraction] 99 % Arabella Arechiga Other [employer] Other 03-09-2022 15:30-0400 Systolic blood pressure 135 mm[Hg] Arabella Arechiga Other [facility] Other Clinical Notes 03-09-2022 to 06-13-2023 Note [...] Orthopedics w/ increased pain or trigger finger [facility] Other 12-14-2023 Evaluation note* Encounter Date Diagnosis [...] index [BMI] 35.0-35.9, adult (ICD-10 - Z68.35) [facility] Other 10-19-2023 Evaluation note* Encounter Date Diagnosis [...] to r/o fracture Continue Mobic and add [place] for now. Consider PT if XR negative Feb, Right hip pain (ICD-10 - M25.551) XR to determine degree of arthritis and r/o fx. ROM exercises COntinue Mobic and add [place] for now. Feb, Seborrheic dermatitis (ICD-10 - [...] index [BMI] 35.0-35.9, adult (ICD-10 - Z68.35) [facility] Other 08-17-2023 Evaluation note* Encounter Date Diagnosis [...] also instructed to stop Mobic and start [place], 7 days prior to her procedure. Dec, Gastroesophageal reflux disease with esophagitis without hemorrhage (ICD-10 - K21.00) Stable, continue medication w/o interruption Dec, Traumatic complete tear of right rotator cuff, subsequent encounter (ICD-10 - S46.011D) Scheduled for arthroscopic repair w/ Dr. Hong. 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 Refer to note in patient chart for documentation of history and physical. Providers: Gustavo Li MD (Doctor), Sara Castillo RN (Nurse), Maciel Ferrer, [employer]ator [employer] Drier Referring: Gustavo Li MD Medicines: See the Anesthesia note [...] biopsy result. 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 [facility] Other 10-20-2022 Evaluation note* Encounter Date Diagnosis [...] with primary care provider to discuss reaction. [employer] Other Evaluation noteNo InformationNort [employer] Other Evaluation note* Diagnosis Onset Date Resolution Status Dysphagia acute [facility] Work Phone: Evaluation note* Diagnosis Polyp of stomach and duodenum documented in this encounter [facility] Work Phone: Evaluation note* Diagnosis Onset Date Resolution Status Age-related osteoporosis wit hout current pathological fracture acute Dupuytren's contracture of right hand acute GERD (gastroesophageal reflux disease) acute Hypertension acute Inflammatory polyarthritis a cute Lumbar spondylosis acute Trigger finger acute Medicare annual wellness visit, subsequent noneactive Screening mammogram for breast cancer noneactive [facility] Work Phone: Evaluation note* Diagnosis [...] Strain of hip and thigh acut e [facility] Work Phone: Evaluation note* Diagnosis Onset Date Resolution Status Left hip pain acute Primary osteoarthritis of hip acute Strain of hip and thigh acut e Age-related osteoporosis wit hout current pathological fracture acute Fibromyalgia acute GERD (gastroesophageal reflux disease) acute Hypertension acute Inflammatory polyarthritis a cute Lumbar spondylosis acute Trigger finger acute [facility] Work Phone: History general Narrative - Reported* Type Description Date Medical History Hypertension Medical History Acid reflux Medical History Hiatal hernia Surgical History back surgery x3 Surgical History Neck Surgery Surgical History shoulder arthroscopy Surgical History hysterectomy Surgical History cholecystectomy Hospitalization History see above [facility] Other Hislrhr general Narrative - Reported* Type Description Date Medical History Hypertension Medical History Acid reflux Medical History Hiatal hernia Surgical History back surgery x3 Surgical History Neck Surgery Surgical History shoulder arthroscopy Surgical History hysterectomy Surgical History cholecystectomy Surgical History EGD w/ bx and dilatation 09/2022 Hospitalization History see above [facility] Other History general Narrative - Reported* Type Description Date Medical History Hypertension Medical History Acid reflux Medical History Hiatal hernia Surgical History back surgery x3 Surgical History Neck Surgery Surgical History shoulder arthroscopy Surgical History hysterectomy Surgical History cholecystectomy Surgical History EGD w/ bx and dilatation 09/2022 Surgical History Right shoulder arthroscopy 02/07 23 Hospitalization History see above [facility] Other Hislcsd general Narrative - Reported* Type Description Date Medical History Hypertension Medical History Acid reflux Medical History Hiatal hernia Surgical History back surgery x3 Surgical History Neck Surgery Surgical History shoulder arthroscopy Surgical History hysterectomy Surgical History cholecystectomy Surgical History EGD w/ bx and dilatation 09/2022 Surgical History Right shoulder arthroscopy 02/07 23 Surgical History Endoscopic US 11/2022 Hospitalization History see above [facility] Other Hospital Discharge instructions Additional Instructions DISCHARGE [...] if you have any problems. -Office number [phone] Work Phone: Summary Purpose Family History Relationship [...] of hip Strain of hip and thigh Chief Complaint M25.50 M89.9 Z79.899 Z11.59 hand pain HURT ARM 3 Month Check Up Reason for Visit Left hip pain Primary osteoarthritis of hip Strain of hip and thigh Age-related osteoporosis without current pathological fracture Fibromyalgia GERD (gastroesophageal reflux disease) Hypertension Inflammatory polyarthritis Lumbar spondylosis Trigger finger Additional Source Comments INFORMATION SOURCE (unrecogn ized section and content) DATE CREATED AUTHOR 11/08/2017 [facility] DATE CREATED AUTHOR AUTHOR'S ORGANIZ ATION 10/13/2018 Doris colby DATE CREATED AUTHOR AUTHOR'S ORGANIZ ATION 07/21/2022 [facility] DATE CREATED AUTHOR AUTHOR'S ORGANIZ ATION 12/21/2022 [facility] DATE CREATED AUTHOR AUTHOR'S ORGANIZ ATION 12/22/2022 [facility] DATE CREATED AUTHOR AUTHOR'S ORGANIZ ATION 09/10/2023 [facility] EPIC DATE CREATED AUTHOR AUTHOR'S ORGANIZ ATION 09/21/2023 [facility] REASON FOR VISIT (unrecogniz ed section and content) Reason Comments Other EGD/EUS D49.0 [id number] Care Teams (unrecognized sec tion and content) Team Status: Active Member Role Status Dates Mckinley Alfaro DO Primary Care Provider Active Team Status: Active Member Role Status Dates [...] 2023 Team Status: Inactive Member Role Status Lara Alfaro DO Primary Care Provide r, Attending Provider Active Start: October 12, 2023 End: October 12, 2023 Team Status: Inactive Member Role Status Dates Mckinley Alfaro DO Primary Care Provide r, Attending Provider Active Start: October 30, 2023 End: October 30, 2023 Team Status: Active Member Role Status Lara Nixon DO Primary Care Provider Active Team Status: Inactive Member Role Status Lara Nixon DO Primary Care Provider Active Niurka Oliveira MD Attending Provider Active 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 Start Date End Date Mckinley Alfaro DO PCP - General 12/08/22 Team Status: Active Member Role Status Lara Alfaro DO Primary Care Provider Active Team Status: Inactive Member Role Status Lara Alfaro DO Primary Care Provide r, Attending Provider Active Start: July 30, 2023 End: July 30, 2023 Team Status: Active Member Role Status Lara Alfaro DO Primary Care Provide r, Attending [...] October 12, 2023 End: October 12, 2023 Team Status: Inactive Member Role Status Dates Mckinley Alfaro DO Primary Care Provide r, Attending Provider Active Start: October 30, 2023 End: October 30, 2023 Goals (unrecognized section and content) Goals [...] BE BASED ON THE PRIMARY CLINICAL RECORDS. [facility] [employer] [facility]. provides no warranty or guarantee of the accuracy or completeness of information in this document.
[2023-11-19 13:50] LABS: Basophils Percent Auto 0.3 % (0.2-2.0); Eosinophils Absolute Auto 0.2 10^3/uL (0.0-0.7); Eosinophils Percent Auto 1.7 % (0.9-7.0); Hematocrit 38.3 % (36.0-48.0); Hemoglobin 12.2 g/dL (12.0-16.0); Immature Granulocytes Abs Auto 0.02 10^3/uL (0.00-0.03); Immature Granulocytes Pct Auto 0.2 % (0.0-0.5); Lymphocytes Absolute Auto 1.4 10^3/uL (1.2-3.8); Lymphocytes Percent Auto 15.3 % (20.5-60.0); Mean Corpuscular HGB Conc 31.9 g/dL (29.9-35.2); Mean Corpuscular Hemoglobin 27.7 pg (26.7-34.0); Mean Platelet Volume 11.4 fL (9.5-13.5); Monocytes Absolute Auto 0.7 10^3/uL (0.3-0.8); Monocytes Percent Auto 7.2 % (1.7-12.0); Neutrophils Percent Auto 75.3 % (43.0-75.0); Platelet Count 296 10^3/uL (150-450); White Blood Count 9.3 10^3/uL (4.0-11.0)
[2023-11-19 14:13] LABS: Alanine Aminotransferase 24 U/L (14-59); Albumin Level 3.7 g/dL (3.4-5.0); Alkaline Phosphatase 104 U/L (46-116); Aspartate Amino Transferase 17 U/L (15-37); Bilirubin Direct 0.1 mg/dL (0.0-0.2); Bilirubin Total 0.4 mg/dL (0.2-1.0); Erythrocyte Sedimentation Rate 22 mm/hr (<=30); Estimated GFR (African America >60 (>=60); Estimated GFR (Non-African Ame 59 (>=60); Globulin 3.8 g/dL; Total Protein 7.5 g/dL (6.4-8.2)
[2023-12-03 09:54] LABS: Basophils Percent Auto 0.4 % (0.2-2.0); Eosinophils Absolute Auto 0.2 10^3/uL (0.0-0.7); Eosinophils Percent Auto 3.2 % (0.9-7.0); Hematocrit 37.9 % (36.0-48.0); Hemoglobin 12.3 g/dL (12.0-16.0); Immature Granulocytes Abs Auto 0.01 10^3/uL (0.00-0.03); Immature Granulocytes Pct Auto 0.1 % (0.0-0.5); Lymphocytes Absolute Auto 1.6 10^3/uL (1.2-3.8); Lymphocytes Percent Auto 21.7 % (20.5-60.0); Mean Corpuscular HGB Conc 32.5 g/dL (29.9-35.2); Mean Corpuscular Hemoglobin 28.9 pg (26.7-34.0); Mean Platelet Volume 11.6 fL (9.5-13.5); Monocytes Absolute Auto 0.7 10^3/uL (0.3-0.8); Monocytes Percent Auto 9.1 % (1.7-12.0); Neutrophils Absolute Auto 4.9 10^3/uL (1.4-6.5); Neutrophils Percent Auto 65.5 % (43.0-75.0); Platelet Count 250 10^3/uL (150-450); Red Blood Count 4.26 10^6/uL (4.20-5.40); Red Cell Distribution Width 14.5 % (11.0-15.0); White Blood Count 7.5 10^3/uL (4.0-11.0)
[2023-12-03 10:25] LABS: Alanine Aminotransferase 27 U/L (14-59); Albumin Globulin Ratio 0.9; Albumin Level 3.4 g/dL (3.4-5.0); Alkaline Phosphatase 95 U/L (46-116); Aspartate Amino Transferase 23 U/L (15-37); Bilirubin Direct 0.1 mg/dL (0.0-0.2); Bilirubin Total 0.5 mg/dL (0.2-1.0); Estimated GFR (African America >60 (>=60); Estimated GFR (Non-African Ame 59 (>=60); Globulin 3.6 g/dL
[2023-12-03 10:26] LABS: Erythrocyte Sedimentation Rate 22 mm/hr (<=30)
== END 2023-12-19 08:24 | disposition home or self-care (01) ==
LOC: LAB 13:12
PROVIDERS: PCP Internal Medicine; Visit Provider Internal Medicine Rheumatology
DX: L40.51 Distal interphalangeal psoriatic arthropathy (principal)
CPT/HCPCS: 36415; 80076; 82565; 85025; 85652

== ENCOUNTER 2023-12-31 08:14 | Outpatient (OUT) | payer MEDICARE, OTHER, SELFPAY ==
--- OUTSIDE RECORDS SUMMARY | 2023-12-31 08:21 | XMS_ITS | CCD ---
Author Organization [facility] Care Team Providers Care Office Rn Name Role Phone PHYSICIAN, DEFAULT Unavailable Unavailable PHYSICIAN, DEFAULT Unavailable Unavailable PHYSICIAN, DEFAULT Unavailable Unavailable PHYSICIAN, DEFAULT Unavailable Unavailable HARJIT OLIVIA Attending Unavailable MCKINLEY ALFARO Primary Care Unavailable MCKINLEY ALFARO Primary Care Unavailable Arabella Arechiga Unavailable SALEEM, DR LOPEZ Primary Care Unavailable BALL, DR [...] DR TIFFANY Vasquez Consulting Unavailable BALL, DR LOPEZ Primary Care Unavailable REQUEST, DR JOHNSON LISTED Admitting Unavaila ble BALL, DR LOPEZ Consulting Unavailable REQUEST, DR JOHNSON LISTED Attending Unavaila ble REQUEST, DR JOHNSON LISTED Consulting Unavaila ble BALL, DR LOPEZ Admitting Unavailable BALL, DR LOPEZ Attending Unavailable BALL, DR LOPEZ Consulting Unavailable BALL, DR LOPEZ Primary Care Unavailable ZIEBER, DR TIFFANY Vasquez Consulting Unavailable BALL, DR LOPEZ Admitting Unavailable BALL, DR LOPEZ Attending Unavailable BALL, DR LOPEZ Consulting Unavailable BALL, DR LOPEZ Primary Care Unavailable Saleem, Mckinley Unavailable DO Arnoldo Nixon Primary Care Provider [phone] MD Niurka Oliveira Attending Provider [phone] Keara Bullard Unavailable [phone] Mckinley Alfaro Unavailable Dinary, Dr. Lopes Attending Unavailable Dinary, Dr. Lopes Referring Unavailable Ball, Dr. Mckinley Nair Primary Care Unavai lable [...] APLING, JOHN B Referring Unavailable Ball, DO Mckinley Primary Care Provider [phone] MD Tano Tsai Attending Provider [phone] Niurka Oliveira Attending UnavailNiurka Nichols Admitting UnavailArnoldo Sutton Primary Care Unavailable Saleem, Mckinley Primary Care Unavailable Tano Tsai Attending Unavailable Tano Tsai Admitting Unavailable Mckinley Alfaro Primary Care Unavailable Tano Tsai Attending Unavailable Tano Tsai Admitting Unavailable Allergies Allergy Classification Reported Allergen(s) Allergy Type Date of Onset Reaction(s) Facility Adhesive Tape (1 source) Adhesive Tape Substance Allergy 10-30-19 24 Redness of Skin [facility] Dihydrofolate Reductase Inhibitors (antibiotic) (1 source) Trimethoprim Drug Allergy 10-30-19 24 Unknown Reaction [facility] Nitrofurantoin (1 source) Nitrofurantoin Drug Allergy 10-30-19 24 Comment:Macrob id [facility] Penicillins (antibiotic) (1 source) Penicillins Drug Allergy 10-30-19 24 Swelling of Lip/Tongue/Thr oat [facility] Sulfonamides (antibiotic) (1 source) Sulfamethoxazole Drug Allergy 10-30-19 24 Unknown Reaction [facility] tiZANidine (1 source) tiZANidine Drug Allergy 10-30-19 24 Insomnia [facility] (6 sources) Penicillin G Drug Allergy anaphylaxis [employer] Other (1 source) Penicillin Drug Allergy 01-23-20 15 [facility] Repository (5 sources) Adhesive Tape; Translations: [adhesive tape] Propensity to adverse reactions 02-24-20 17 Redness of Skin [facility] (6 sources) Penicillins; Translations: [Penicillins] Allergy to substance 02-24-20 17 Swelling of Lip/Tongue/Thr oat [facility] (6 sources) Adhesive Tape Drug allergy 04-19-20 16 Unknown [employer] Other (9 sources) Nitrofurantoin Drug Allergy 07-30-19 Comment:Macrob id [facility] (6 sources) Sulfamethoxazole / Trimethoprim Drug Allergy Unknown [employer] Other (6 sources) tiZANidine Comfort Pac *MUSCULOSKELETAL THERAPY AG Propensity to adverse reactions Comment:Could not sleep/rest. [employer] Other (6 sources) Substance with penicillin structure and antibacterial mechanism of action (substance) Drug allergy 04-19-20 16 Unknown [employer] Other (4 sources) Sulfamethoxazole; Translations: [sulfamethoxazole] Drug Allergy 07-30-19 24 Unknown Reaction [facility] (4 sources) tiZANidine; Translations: [tizanidine] Drug Allergy 07-30-19 24 Insomnia [facility] (4 sources) Trimethoprim; Translations: [trimethoprim] Drug Allergy 07-30-19 Unknown Reaction [facility] (1 source) Nitrofurantoin Drug Allergy 07-30-19 [facility] Repository Medications Current Medications Medication Drug Class(es) Dates Sig (Normalized) Sig (Original) acetaminophen 325 mg / HYDROcodone bitartrate 5 mg oral tablet (20 sources) Opioid Agonist Start: 07-26-2023 End: 10-12-2023 take 1 tablet by mouth twice daily Hydrocodone-Aceta minophen Active 1 TAB PO Twice daily 60 October 12, 2023 start 10/11 Start: 06-13-2023 [...] romulo every twenty-four hours Biotin Maximum Strength 89598 MCG 1 tablet Orally Once a day PRN Active take 1 tablet by romulo th every twenty-four hours Biotin Maximum Strength 21090 MCG 1 tablet Orally Once a day PRN Active Biotin Maximum Strength 47796 MCG (7 sources) take 1 tablet by romulo th once daily as needed Biotin Maximum Strength 89849 MCG 1 tablet Orally Once a day PRN Active take 1 tablet by mouth once gayla y Biotin Maximum Strength 45927 MCG 1 tablet Orally Once a day [...] 1:00am Start: 05-17-2023 take 1 capsule by mo [facility] every twenty-four hours Potassium Chloride ER 10 [...] injection (7 sources) Bisphosphonate Start: 07-26-2023 Zoledronic Dyit-Fuyzjcrd-Frffp (Reclast) 5 mg/100 mL piggyback Active EACH [...] / neomycin 3.5 mg/ml / polymyxin b 75041 unt/ml otic solution (12 sources) Aminoglycoside Antibacterial, Polymyxin-class Antibacterial, Corticosteroid Start: 03-09-2022 Mudwsvau-Wjvnzakwv-SP 3.5-80647-9 4 drops into affected ear Otic Three [...] 8:46am Meclizine (12 sources) Antiemetic Meclizine HCl OR N Not-Taking/PRN Meclizine HCl OR N Not-Taking Meclizine HCl OR N Active meloxicam 15 mg oral tablet [...] 24, 2017 12:00am October 21, 2018 8:46am [place] 6-Ind-Nlu-Fish Oil (Fish Oil) 1,000 mg (120 mg-180 mg) Capsule (5 sources) Start: 02-23-2017 End: 08-24-2017 take 1 capsule by mouth once daily [place] 4-Col-Vas-Fish Oil (Fish Oil) 1,000 mg (120 mg-180 mg) Capsule Discontinued 1 CAP PO Daily February 23, 2017 12:00am August 24, 2017 7:39am [place] Red (5 sources) Start: 04-02-2018 End: 09-28-2022 take 1 tablet by mouth once daily [place] Red Discontinued 1 TAB PO Daily April [...] hand; Translations: [Pain in right hand] Onset: 4 Episodic Other connective tissue disease (1 source) [...] initial encounter] Onset: 2 Episodic Thyroid disorders (4 sources) Hypothyroidism; Translations: [...] XR chest 2V*on 09-13-2023 XR chest 2V* [facility] Main [place] [id number] XRay Report Signed Patient: Lizzy Welsh MR#: [id number] : 1950 Acct:[id number] Age/Sex: 73 / F ADM Date: 09/13/23 Loc: ICXD Room: Type: [facility] Attending Dr: Tano Tsai MD Copies to: [...] Anny Powell M.D.09/13/2023 5:13 PM Dictation Location: [place] [address] Transcribed By: [facility] 09/13/231712 Dictated By: Anny Powell II, MD 09/13/231711 Signed By: 09/13/231712 Normal [facility] XR hand BI 2Von 09-13-2023 XR hand BI 2V [facility] Main [address] [address] XRay Report Signed Patient: Lizzy Welsh MR#: [id number] : 1950 Acct:[id number] Age/Sex: 73 / F ADM Date: 09/13/23 Loc: ICXD Room: Type: [facility] Attending Dr: Tano Tsai MD Copies to: [...] Anny Powell M.D.09/13/2023 5:21 PM Dictation Location: [place] [address] Transcribed By: [facility] 09/13/23 1721 Dictated By: Anny Powell II, MD 09/13/23 1719 Signed By: 09/13/23 1721 Normal [facility] Alanine aminotransferase [En zymatic activity/volume] in Serum or PlasmaOrdered By: Tano Tsai on 09-12-2023 ALT [Catalytic activity/Vol] 18 U/L 7-52 [facility] Albumin [Mass/volume] in Ser um or Plasma by Bromocresol green (BCG) dye binding methoOrdered By: Tano Tsai on 09-12-2023 Albumin BCG dye [Mass/Vol] 4.2 g/dL 3.5-5.7 [facility] Alkaline phosphatase [Enzyma tic activity/volume] in Serum or PlasmaOrdered By: Tano Tsai on 09-12-2023 ALP [Catalytic activity/Vol] 82 U/L 34-104 [facility] Aspartate aminotransferase [ Enzymatic activity/volume] in Serum or PlasmaOrdered By: Tano Tsai on 09-12-2023 AST [Catalytic activity/Vol] 16 U/L 13-39 [facility] Basophils Auto (Bld) [#/Vol] Ordered By: Tano Tsai on 09-12-2023 Basophils (Bld) [#/Vol] 0.1 10*3/uL 0.0-0.2 [facility] Basophils/100 WBC Auto (Bld) Ordered By: Tano Tsai on 09-12-2023 Basophils/100 WBC (Bld) 0.7 % . [facility] Bilirubin.total [Mass/volume ] in Serum or PlasmaOrdered By: Tano Tsai on 09-12-2023 Bilirubin [Mass/Vol] 0.5 mg/dL 0.3-1.0 [facility] C reactive protein [Mass/vol ume] in Serum or PlasmaOrdered By: Tano Tsai on 09-12-2023 CRP [Mass/Vol] 2.1 mg/dL 0.0-0.5 [facility] C-Reactive Proteinon 024 C-Reactive Protein 2.1 mg/dL High 0.0-0.5 [facility] Comment on above: Result Comment: PERF ORMED BY: [place] [address] PATHOLOGIST [employer] SALES ASSOCIATE VICENTE MONTEZ M.D. Performed By: #### C MP, ESR, PTH, CBC, CRP #### [facility] [address] [place] [address] #### HBCAB, HBSAB, HBSAG, HCV RX PCR #### [facility] , Calcium [Mass/volume] in Ser um or PlasmaOrdered By: Tano Tsai on 09-12-2023 Calcium [Mass/Vol] 9.9 mg/dL 8.6-10.3 [facility] Carbon dioxide, total [Moles /volume] in Serum or PlasmaOrdered By: Tano Tsai on 09-12-2023 CO2 [Moles/Vol] 31.5 mmol/L 21.0-31.0 [facility] Chloride [Moles/volume] in S concha or PlasmaOrdered By: Tano Tsai on 09-12-2023 Chloride [Moles/Vol] 105 mmol/L 98-107 [facility] Complete Blood Count Auto Di ffon 09-12-2023 Basophils (Bld) [#/Vol] 0.1 10*3/uL Normal 0.0-0.2 [facility] Comment on above: Performed By: #### C MP, ESR, PTH, CBC, CRP #### [address] #### HBCAB, HBSAB, HBSAG, HCV RX PCR #### [facility] , Basophils/100 WBC (Bld) 0.7 % Normal . T eladio [facility] Comment on above: Performed By: #### C MP, ESR, PTH, CBC, CRP #### [address] #### HBCAB, HBSAB, HBSAG, HCV RX PCR #### [facility] , Eosinophils (Bld) [#/Vol] 0.3 10*3/uL Normal 0.0-0.45 [facility] Comment on above: Performed By: #### C MP, ESR, PTH, CBC, CRP #### [address] #### HBCAB, HBSAB, HBSAG, HCV RX PCR #### [facility] , Eosinophils/100 WBC (Bld) 3.3 % Normal . [facility] Comment on above: Performed By: #### C MP, ESR, PTH, CBC, CRP #### [place] [address] [place] #### HBCAB, HBSAB, HBSAG, HCV RX PCR #### [facility] , Erythrocyte distribution width (RBC) [Ratio] 14.8 % Normal 11.9-15.3 [facility] Comment on above: Performed By: #### C MP, ESR, PTH, CBC, CRP #### [place] [address] [place] #### HBCAB, HBSAB, HBSAG, HCV RX PCR #### [facility] , Hematocrit (Bld) [Volume fraction] 40.9 % Normal 34.0-46.4 [facility] Comment on above: Performed By: #### C MP, ESR, PTH, CBC, CRP #### [address] #### HBCAB, HBSAB, HBSAG, HCV RX PCR #### [facility] , Hemoglobin (Bld) [Mass/Vol] 13.2 g/dL Normal 11.8-15.4 [facility] Comment on above: Performed By: #### C MP, ESR, PTH, CBC, CRP #### [address] #### HBCAB, HBSAB, HBSAG, HCV RX PCR #### [facility] , Lymphocytes (Bld) [#/Vol] 1.9 10*3/uL Normal 1.00-4.8 [facility] Comment on above: Performed By: #### C MP, ESR, PTH, CBC, CRP #### [address] #### HBCAB, HBSAB, HBSAG, HCV RX PCR #### [facility] , Lymphocytes/100 WBC (Bld) 21.1 % Normal . [facility] Comment on above: Performed By: #### C MP, ESR, PTH, CBC, CRP #### [place] [address] [place] #### HBCAB, HBSAB, HBSAG, HCV RX PCR #### [facility] , MCH (RBC) [Entitic mass] 27.6 pg Normal 24.7-34.3 [facility] Comment on above: Performed By: #### C MP, ESR, PTH, CBC, CRP #### [place] [address] [place] #### HBCAB, HBSAB, HBSAG, HCV RX PCR #### [facility] , MCV (RBC) [Entitic vol] 85.2 fL Normal 80-100 [facility] Comment on above: Performed By: #### C MP, ESR, PTH, CBC, CRP #### [address] #### HBCAB, HBSAB, HBSAG, HCV RX PCR #### [facility] , Mean Corpuscular HGB Conc 32.4 g/dL Normal 32.0-35.0 [facility] Comment on above: Performed By: #### C MP, ESR, PTH, CBC, CRP #### [address] #### HBCAB, HBSAB, HBSAG, HCV RX PCR #### [facility] , Monocytes (Bld) [#/Vol] 1.0 10*3/uL High 0.0-0.8 [facility] Comment on above: Performed By: #### C MP, ESR, PTH, CBC, CRP #### [address] #### HBCAB, HBSAB, HBSAG, HCV RX PCR #### [facility] , Monocytes/100 WBC (Bld) 10.5 % Normal . [facility] Comment on above: Performed By: #### C MP, ESR, PTH, CBC, CRP #### [place] [address] [place] #### HBCAB, HBSAB, HBSAG, HCV RX PCR #### [facility] , Neutrophils (Bld) [#/Vol] 5.9 10*3/uL Normal 1.8-7.7 [facility] Comment on above: Performed By: #### C MP, ESR, PTH, CBC, CRP #### [place] [address] [place] #### HBCAB, HBSAB, HBSAG, HCV RX PCR #### [facility] , Neutrophils/100 WBC (Bld) 64.4 % Normal . [facility] Comment on above: Performed By: #### C MP, ESR, PTH, CBC, CRP #### [place] [address] [place] #### HBCAB, HBSAB, HBSAG, HCV RX PCR #### [facility] , NRBC% 0.2 /100{WBC} Normal 0-0.5 [facility] Comment on above: Performed By: #### C MP, ESR, PTH, CBC, CRP #### [address] #### HBCAB, HBSAB, HBSAG, HCV RX PCR #### [facility] , Platelet mean volume (Bld) [Entitic vol] 10.3 fL Normal 6.3-10.7 [facility] Comment on above: Performed By: #### C MP, ESR, PTH, CBC, CRP #### [address] #### HBCAB, HBSAB, HBSAG, HCV RX PCR #### [facility] , Platelets (Bld) [#/Vol] 253 10*3/uL Normal 150-450 [facility] Comment on above: Performed By: #### C MP, ESR, PTH, CBC, CRP #### [place] [address] [place] #### HBCAB, HBSAB, HBSAG, HCV RX PCR #### [facility] , RBC (Bld) [#/Vol] 4.80 10*6/uL Normal 3.60-5.00 [facility] Comment on above: Performed By: #### C MP, ESR, PTH, CBC, CRP #### [place] [address] [place] #### HBCAB, HBSAB, HBSAG, HCV RX PCR #### [facility] , WBC (Bld) [#/Vol] 9.2 10*3/uL Normal 3.8-11.6 [facility] Comment on above: Performed By: #### C MP, ESR, PTH, CBC, CRP #### [address] #### HBCAB, HBSAB, HBSAG, HCV RX PCR #### [facility] , Comprehensive Metabolic Pane mayur 09-12-2023 Albumin [Mass/Vol] 4.2 g/dL Normal 3.5-5.7 [facility] Comment on above: Performed By: #### C MP, ESR, PTH, CBC, CRP #### [address] #### HBCAB, HBSAB, HBSAG, HCV RX PCR #### [facility] , Albumin/Globulin [Mass ratio] 1.4 {ratio} Normal [facility] Comment on above: Performed By: #### C MP, ESR, PTH, CBC, CRP #### [address] #### HBCAB, HBSAB, HBSAG, HCV RX PCR #### [facility] , ALP [Catalytic activity/Vol] 82 U/L Normal 34-104 [facility] Comment on above: Performed By: #### C MP, ESR, PTH, CBC, CRP #### [place] [address] [place] #### HBCAB, HBSAB, HBSAG, HCV RX PCR #### [facility] , ALT [Catalytic activity/Vol] 18 U/L Normal 7-52 [facility] Comment on above: Performed By: #### C MP, ESR, PTH, CBC, CRP #### [address] #### HBCAB, HBSAB, HBSAG, HCV RX PCR #### [facility] , Anion gap [Moles/Vol] 9.7 mmol/L Normal 6.0-15.0 [facility] Comment on above: Performed By: #### C MP, ESR, PTH, CBC, CRP #### [address] #### HBCAB, HBSAB, HBSAG, HCV RX PCR #### [facility] , AST [Catalytic activity/Vol] 16 U/L Normal 13-39 [facility] Comment on above: Performed By: #### C MP, ESR, PTH, CBC, CRP #### [place] [address] [place] #### HBCAB, HBSAB, HBSAG, HCV RX PCR #### [facility] , Bilirubin [Mass/Vol] 0.5 mg/dL Normal 0.3-1.0 [facility] Comment on above: Performed By: #### C MP, ESR, PTH, CBC, CRP #### [place] [address] [place] #### HBCAB, HBSAB, HBSAG, HCV RX PCR #### [facility] , Calcium [Mass/Vol] 9.9 mg/dL Normal 8.6-10.3 [facility] Comment on above: Performed By: #### C MP, ESR, PTH, CBC, CRP #### [address] #### HBCAB, HBSAB, HBSAG, HCV RX PCR #### [facility] , Chloride [Moles/Vol] 105 mmol/L Normal 98-107 [facility] Comment on above: Performed By: #### C MP, ESR, PTH, CBC, CRP #### [place] [address] [place] #### HBCAB, HBSAB, HBSAG, HCV RX PCR #### [facility] , CO2 [Moles/Vol] 31.5 mmol/L High 21.0-31.0 [facility] Comment on above: Performed By: #### C MP, ESR, PTH, CBC, CRP #### [address] #### HBCAB, HBSAB, HBSAG, HCV RX PCR #### [facility] , Creatinine [Mass/Vol] 0.74 mg/dL Normal 0.60-1.20 [facility] Comment on above: Performed By: #### C MP, ESR, PTH, CBC, CRP #### [place] [address] [place] #### HBCAB, HBSAB, HBSAG, HCV RX PCR #### [facility] , GFR/1.73 sq M.predicted MDRD (S/P/Bld) [Vol rate/Area] mL/min/{1.73_m2} Normal [facility] Comment on above: Performed By: #### C MP, ESR, PTH, CBC, CRP #### [address] #### HBCAB, HBSAB, HBSAG, HCV RX PCR #### [facility] , Globulin (S) [Mass/Vol] 2.9 g/dL Normal T [facility] Comment on above: Performed By: #### C MP, ESR, PTH, CBC, CRP #### [address] #### HBCAB, HBSAB, HBSAG, HCV RX PCR #### [facility] , Glucose [Mass/Vol] 99 mg/dL Normal 70-100 [facility] Comment on above: Result Comment: [place] Glucose Reference Range is dependent on time and content of last meal. Glucose of more than 200 mg/dL in a nonstressed, ambulatory subject supports the diagnosis of Diabetes Mellitus. ADA recommended reference range Performed By: #### C MP, ESR, PTH, CBC, CRP #### [place] [address] [place] #### HBCAB, HBSAB, HBSAG, HCV RX PCR #### [facility] , Potassium [Moles/Vol] 4.2 mmol/L Normal 3.5-5.1 [facility] Comment on above: Performed By: #### C MP, ESR, PTH, CBC, CRP #### [place] [address] [place] #### HBCAB, HBSAB, HBSAG, HCV RX PCR #### [facility] , Protein [Mass/Vol] 7.1 g/dL Normal 6.4-8.9 [facility] Comment on above: Performed By: #### C MP, ESR, PTH, CBC, CRP #### [place] [address] [place] #### HBCAB, HBSAB, HBSAG, HCV RX PCR #### [facility] , Sodium [Moles/Vol] 142 mmol/L Normal 136-145 [facility] Comment on above: Performed By: #### C MP, ESR, PTH, CBC, CRP #### [facility] [address] [place] [address] [place] #### HBCAB, HBSAB, HBSAG, HCV RX PCR #### [facility] , Urea nitrogen [Mass/Vol] 28 mg/dL High 7-25 [facility] Comment on above: Performed By: #### C MP, ESR, PTH, CBC, CRP #### [place] [address] [place] #### HBCAB, HBSAB, HBSAG, HCV RX PCR #### [facility] , Creatinine [Mass/volume] in Serum or PlasmaOrdered By: Tano Tsai on 09-12-2023 Creatinine [Mass/Vol] 0.74 mg/dL 0.60-1.20 [facility] Eosinophils Auto (Bld) [#/Vo l]Ordered By: Tano Tsai on 09-12-2023 Eosinophils (Bld) [#/Vol] 0.3 10*3/uL 0.0-0.45 [facility] Eosinophils/100 WBC Auto (Bl d)Ordered By: Tano Tsai on 09-12-2023 Eosinophils/100 WBC (Bld) 3.3 % . [facility] Erythrocyte Sedimentation Ra lilo 09-12-2023 ESR (Bld) [Velocity] 26 mm/h Normal 0-29 [facility] Comment on above: Result Comment: PERF ORMED BY: [facility] [address] [place] [address] PATHOLOGIST SEC[employer] SALES ASSOCIATE VICENTE MONTEZ M.D. Performed By: #### C MP, ESR, PTH, CBC, CRP #### [facility] [address] [place] [address] [place] #### HBCAB, HBSAB, HBSAG, HCV RX PCR #### [facility] , Erythrocyte distribution wid th Auto (RBC) [Ratio]Ordered By: Tano Tsai on 09-12-2023 Erythrocyte distribution width (RBC) [Ratio] 14.8 % 11.9-15.3 [facility] Erythrocyte sedimentation ra te by Photometric methodOrdered By: Tano Tsai on 09-12-2023 ESR Photometric method (Bld) [Velocity] 26 mm/hr 0-29 [facility] Globulin Calc (S) [Mass/Vol] Ordered By: Tano Tsai on 09-12-2023 Globulin (S) [Mass/Vol] 2.9 g/dL [facility] Glucose [Mass/volume] in Ser um or PlasmaOrdered By: Tano Tsai on 09-12-2023 Glucose [Mass/Vol] 99 mg/dL 70-100 [facility] Comment on above: ADA recommended refe rence rangeRandom Glucose Reference Range is dependent on time and content of last meal. Glucose of more than 200 mg/dL in a nonstressed, ambulatory subject supports the diagnosis of Diabetes Mellitus. Hematocrit Auto (Bld) [Volum e fraction]Ordered By: Tano Tsai on 09-12-2023 Hematocrit (Bld) [Volume fraction] 40.9 % 34.0-46.4 [facility] Hemoglobin [Mass/volume] in BloodOrdered By: Tano Tsai on 09-12-2023 Hemoglobin (Bld) [Mass/Vol] 13.2 g/dL 11.8-15.4 [facility] Hep C Ab wRfx to Qnt PCRon 0 09-12-2023 Hepatitis C Virus Antibody Non-Reactive Normal Non Reactive [facility] Comment on above: Performed By: #### C MP, ESR, PTH, CBC, CRP #### [address] #### HBCAB, HBSAB, HBSAG, HCV RX PCR #### [facility] , Interpretation Hepatitis C Normal . [facility] Comment on above: Result Comment: Not infected with HCV unless early or acute infection is suspected (which may be delayed in an immunocompromised individual), or other evidence exists to indicate HCV infection. Performed By: #### C MP, ESR, PTH, CBC, CRP #### [address] #### HBCAB, HBSAB, HBSAG, HCV RX PCR #### [facility] , Hepatitis B Core Antibodyon 09-12-2023 Hepatitis B Core Antibody Negative Normal Negative [facility] Comment on above: Result Comment: Perf ormed at: - [facility] [place] [id number] Nub Card Tender: Natanael Banegas PhD, Phone: [phone] Performed By: #### C MP, ESR, PTH, CBC, CRP ####[address]#### HBCAB, HBSAB, HBSAG, HCV RX PCR ####[facility] , Hepatitis B Surface Antibody on 09-12-2023 Hepatitis B Surface Antibody Non-Reactive Normal . [facility] Comment on above: Result Comment: Non Reactive: Inconsistent with immunity, less than 10 mIU/mL Reactive: Consistent with immunity, greater than 9.9 mIU/mL Performed By: #### C MP, ESR, PTH, CBC, CRP #### [place] [address] [place] #### HBCAB, HBSAB, HBSAG, HCV RX PCR #### [facility] , Hepatitis B Surface Antigeno n 09-12-2023 HBsAg Screen Negative Normal Negative [facility] Comment on above: Result Comment: PERF ORMED BY: [facility] [address] [id number] PATHOLOGIST SECURITIES SALES ASSOCIATE VICENTE MONTEZ M.D. Performed By: #### C MP, ESR, PTH, CBC, CRP ####[facility] [address] [id number] [place]#### HBCAB, HBSAB, HBSAG, HCV RX PCR ####[facility] , Hepatitis B virus surface Ab [Presence] in SerumOrdered By: Tano Tsai on 09-12-2023 HBV surface Ab Ql (S) Non-Reactive . [facility] Comment on above: Non Reactive: Incons istent with immunity, less than 10 mIU/mL Reactive: Consistent with immunity, greater than 9.9 mIU/mL Hepatitis B virus surface Ag [Presence] in Serum or Plasma by ImmunoassayOrdered By: Tano Tsai on 09-12-2023 HBV surface Ag IA Ql Negative Negative [facility] Hepatitis C virus IgG Ab [Pr esence] in Serum or Plasma by ImmunoassayOrdered By: Tano Tsai on 09-12-2023 HCV IgG IA Ql Non-Reactive Non Reactive [facility] Leukocytes [#/volume] correc loan for nucleated erythrocytes in Blood by Automated counOrdered By: Tano Tsai on 09-12-2023 WBC corrected for nucl RBC Auto (Bld) [#/Vol] 9.2 10*3/uL 3.8-11.6 [facility] Lymphocytes Auto (Bld) [#/Vo l]Ordered By: Tano Tsai on 09-12-2023 Lymphocytes (Bld) [#/Vol] 1.9 10*3/uL 1.00-4.8 [facility] Lymphocytes/100 WBC Auto (Bl d)Ordered By: Tano Tsai on 09-12-2023 Lymphocytes/100 WBC (Bld) 21.1 % . [facility] MCH Auto (RBC) [Entitic mass ]Ordered By: Tano Tsai on 09-12-2023 MCH (RBC) [Entitic mass] 27.6 pg 24.7-34.3 [facility] MCHC Auto (RBC) [Mass/Vol]Or dered By: Tano Tsai on 09-12-2023 MCHC (RBC) [Mass/Vol] 32.4 g/dL 32.0-35.0 [facility] MCV Auto (RBC) [Entitic vol] Ordered By: Tano Tsai on 09-12-2023 MCV (RBC) [Entitic vol] 85.2 fL 80-100 [facility] Monocytes Auto (Bld) [#/Vol] Ordered By: Tano Tsai on 09-12-2023 Monocytes (Bld) [#/Vol] 1.0 10*3/uL 0.0-0.8 [facility] Monocytes/100 WBC Auto (Bld) Ordered By: Tano Tsai on 09-12-2023 Monocytes/100 WBC (Bld) 10.5 % . [facility] Neutrophils Auto (Bld) [#/Vo l]Ordered By: Tano Tsai on 09-12-2023 Neutrophils (Bld) [#/Vol] 5.9 10*3/uL 1.8-7.7 [facility] Neutrophils/100 WBC Auto (Bl d)Ordered By: Tano Tsai on 09-12-2023 Neutrophils/100 WBC (Bld) 64.4 % . [facility] No Panel InformationOrdered By: Tano Tsai on 09-12-2023 Estimated GFR (CKD-EPI) > 60.0 mL/Min [facility] Hepatitis B Core Total Antibody Negative Negative [facility] Comment on above: Performed at: - [address] [id number] Director: Natanael Banegas PhD, Phone: [phone] Hepatitis C Interpretation See comment . [facility] Comment on above: Not infected with HC V unless early or acute infection issuspected (which may be delayed in an immunocompromisedindividual), or other evidence exists to indicate HCVinfection. Pharmacy Creatinine Clearance (Chem N/A [facility] Nucleated erythrocytes [Pres ence] in Blood by Automated countOrdered By: Tano Tsai on 09-12-2023 Nucleated RBC Auto Ql (Bld) 0.2 /100{WBC} 0-0.5 [facility] Parathyrin.intact [Mass/volu me] in Serum or PlasmaOrdered By: Tano Tsai on 09-12-2023 Parathyrin.intact [Mass/Vol] 34.2 pg/mL [facility] Parathyroid Hormone Intacton 09-12-2023 Parathyroid Hormone Intact 34.2 pg/mL Normal [facility] Comment on above: Result Comment: PERF ORMED BY: [place] [address] PATHOLOGIST SECURITIES SALES ASSOCIATE VICENTE MONTEZ M.D. Performed By: #### C MP, ESR, PTH, CBC, CRP #### [facility] [address] [place] [address] [place] #### HBCAB, HBSAB, HBSAG, HCV RX PCR #### [facility] , Platelet mean volume Auto (B ld) [Entitic vol]Ordered By: Tano Tsai on 09-12-2023 Platelet mean volume (Bld) [Entitic vol] 10.3 fL 6.3-10.7 [facility] Platelets Auto (Bld) [#/Vol] Ordered By: Tano Tsai on 09-12-2023 Platelets (Bld) [#/Vol] 253 10*3/uL 150-450 [facility] Potassium [Moles/volume] in Serum or PlasmaOrdered By: Tano Tsai on 09-12-2023 Potassium [Moles/Vol] 4.2 mmol/L 3.5-5.1 [facility] Protein [Mass/volume] in Ser um or PlasmaOrdered By: Tano Tsai on 09-12-2023 Protein [Mass/Vol] 7.1 g/dL 6.4-8.9 [facility] RBC Auto (Bld) [#/Vol]Ordere d By: Tano Tsai on 09-12-2023 RBC (Bld) [#/Vol] 4.80 10*6/uL 3.60-5.[address] [facility] Serum or plasma albumin/glob ulin mass ratioOrdered By: Tano Tsai on 09-12-2023 Albumin/Globulin [Mass ratio] 1.4 {ratio} [facility] Serum or plasma anion gap de terminationOrdered By: Tano Tsai on 09-12-2023 Anion gap [Moles/Vol] 9.7 mmol/L 6.0-15.0 [facility] Sodium [Moles/volume] in Ser um or PlasmaOrdered By: Tano Tsai on 09-12-2023 Sodium [Moles/Vol] 142 mmol/L 136-145 [facility] Urea nitrogen [Mass/volume] in Serum or PlasmaOrdered By: Tano Tsai on 09-12-2023 Urea nitrogen [Mass/Vol] 28 mg/dL 7-25 [facility] WBC Auto (Bld) [#/Vol]Ordere d By: Tano Tsai on 09-12-2023 WBC (Bld) [#/Vol] 9.2 10*3/uL 3.8-11.6 [facility] Basophils Auto (Bld) [#/Vol] on 08-03-2023 Basophils (Bld) [#/Vol] 0.1 10 3/uL 0.0-0.1 [facility] Basophils/100 WBC Auto (Bld) on 08-03-2023 Basophils/100 WBC (Bld) 0.6 % 0.2-2.0 [facility] Eosinophils/100 WBC Auto (Bl d)on 08-03-2023 Eosinophils/100 WBC (Bld) 3.2 % 0.9-7.0 [facility] Erythrocyte distribution wid th Auto (RBC) [Ratio]on 08-03-2023 Erythrocyte distribution width (RBC) [Ratio] 13.7 % 11.0-15.0 [facility] Estimated glomerular filtrat ion rate (GFR) non- Americanon 08-03-2023 GFR/1.73 sq M.predicted among non-blacks MDRD (S/P/Bld) [Vol rate/Area] mL/min/{1.73_m2} >=60 [facility] Globulin Calc (S) [Mass/Vol] on 08-03-2023 Globulin (S) [Mass/Vol] 3.8 g/dL [facility] Hematocrit Auto (Bld) [Volum e fraction]on 08-03-2023 Hematocrit (Bld) [Volume fraction] 38.0 % 36.0-48.0 [facility] Hemoglobin [Mass/volume] in Bloodon 08-03-2023 Hemoglobin (Bld) [Mass/Vol] 11.9 g/dL 12.0-16.0 [facility] Laboratory - Chemistry and C hemistry - challengeon 08-03-2023 Albumin [Mass/Vol] 3.4 g/dL 3.4-5.0 [facility] ALP [Catalytic activity/Vol] 110 U/L 46-116 [facility] ALT [Catalytic activity/Vol] 21 U/L 14-59 [facility] AST [Catalytic activity/Vol] 18 U/L 15-37 [facility] Bilirubin [Mass/Vol] 0.3 mg/dL 0.2-1.0 [facility] Calcium [Mass/Vol] 8.8 mg/dL 8.5-10.1 [facility] Chloride [Moles/Vol] 103 mmol/L 98-107 [facility] CO2 [Moles/Vol] 32.4 mmol/L 21.0-32.0 [facility] Cobalamin (Vitamin B12) [Mass/Vol] 803.0 pg/mL 193.0-986.0 [facility] Creatinine [Mass/Vol] 0.88 mg/dL 0.55-1.02 [facility] GFR/1.73 sq M.predicted MDRD (S/P/Bld) [Vol rate/Area] mL/min/{1.73_m2} >=60 [facility] Glucose [Mass/Vol] 150 mg/dL 74-106 [facility] Potassium [Moles/Vol] 3.6 mmol/L 3.5-5.1 [facility] Protein [Mass/Vol] 7.2 g/dL 6.4-8.2 [facility] Sodium [Moles/Vol] 143 mmol/L 136-145 [facility] TSH Qn 1.282 m[IU]/L 0.358-3.740 [facility] Urea nitrogen [Mass/Vol] 26.0 mg/dL 7.0-18.0 [facility] Urea nitrogen/Creatinine [Mass ratio] 29.5 mg/mg [facility] Laboratory - Hematology and Cell countson 08-03-2023 Immature granulocytes/100 WBC (Bld) 0.3 % 0.0-0.5 [facility] Leukocytes [#/volume] correc loan for nucleated erythrocytes in Blood by Automated counon 08-03-2023 WBC corrected for nucl RBC Auto (Bld) [#/Vol] 8.8 10 3/uL 4.0-11.0 [facility] Lymphocytes Auto (Bld) [#/Vo l]on 08-03-2023 Lymphocytes (Bld) [#/Vol] 2.0 10 3/uL 1.2-3.8 [facility] Lymphocytes/100 WBC Auto (Bl d)on 08-03-2023 Lymphocytes/100 WBC (Bld) 22.7 % 20.5-60.0 [facility] MCH Auto (RBC) [Entitic mass ]on 08-03-2023 MCH (RBC) [Entitic mass] 27.5 pg 26.7-34.0 [facility] MCHC Auto (RBC) [Mass/Vol]on 08-03-2023 MCHC (RBC) [Mass/Vol] 31.3 g/dL 29.9-35.2 [facility] MCV Auto (RBC) [Entitic vol] on 08-03-2023 MCV (RBC) [Entitic vol] 87.8 fL 81.0-99.0 [facility] Monocytes Auto (Bld) [#/Vol] on 08-03-2023 Monocytes (Bld) [#/Vol] 0.9 10 3/uL 0.3-0.8 [facility] Monocytes/100 WBC Auto (Bld) on 08-03-2023 Monocytes/100 WBC (Bld) 9.9 % 1.7-12.0 [facility] Neutrophils Auto (Bld) [#/Vo l]on 08-03-2023 Neutrophils (Bld) [#/Vol] 5.6 10 3/uL 1.4-6.5 [facility] Neutrophils/100 WBC Auto (Bl d)on 08-03-2023 Neutrophils/100 WBC (Bld) 63.3 % 43.0-75.0 [facility] No Panel Informationon 08-02 C-Reactive Protein, Quantitative 1.82 mg/dL <=0.50 [facility] Eosinophils # (Auto) 0.3 10 3/uL 0.0-0.7 [facility] Immature Granulocyte # (Auto) 0.03 10 3/uL 0.00-0.03 [facility] Platelet mean volume Auto (B ld) [Entitic vol]on 08-03-2023 Platelet mean volume (Bld) [Entitic vol] 11.6 fL 9.5-13.5 [facility] Platelets Auto (Bld) [#/Vol] on 08-03-2023 Platelets (Bld) [#/Vol] 279 10 3/uL 150-450 [facility] RBC Auto (Bld) [#/Vol]on RBC (Bld) [#/Vol] 4.33 10 6/uL 4.20-5.[address] [facility] Serum nuclear antibody titer on 08-03-2023 Nuclear Ab (S) [Titer] Negative . [facility] Comment on above: Negative <1:80 Borde rline 1:80 Positive >1:80ICAP nomenclature: AC-0For more information about Hep-2 cell patterns useANApatterns.org, the official website for theInternational Consensus on Antinuclear Antibody (ALFONZO)Patterns (ICAP).Performed at: [facility] [id number] Director: Natanael Banegas PhD, Phone: [phone] Serum or plasma albumin/glob ulin mass ratioon 08-03-2023 Albumin/Globulin [Mass ratio] 0.9 {ratio} [facility] Serum or plasma anion gap de terminationon 08-03-2023 Anion gap [Moles/Vol] 11.2 mmol/L [facility] Serum or plasma cyclic adeno sine monophosphate measurement (moles/volume)on 08-03-2023 Adenosine monophosphate.cyclic [Moles/Vol] 3 units 0-19 [facility] Comment on above: Negative <20 Weak po sitive 20 - 39 Moderate positive 40 - 59 Strong positive >59Performed at: CB - [facility] [id number] [place], [place] [id number] Director: Natanael Banegas PhD, Phone: [phone] MR LUMBAR SPINE W AND WO CON [...] examined. Electronically Signed Out By ANNY CHU MD/[facility] By the signature on this report, the individual or group listed as making the Final Interpretation/Diagnos is certifies that they have reviewed this case. Diagnostic interpretation performed at [place] [address] Clinical History: Physician Contact Number: [phone] Ischemic Time (A): 09:35 Fixative (A): Formalin [...] submitted in toto in one cassette. 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 Refer to note in patient chart for documentation of history and physical. Providers: Gustavo Li MD (Doctor), Sara Castillo RN (Nurse), Maciel Ferrer, Middle [employer] Sports Coach Referring: Gustavo Li MD Medicines: See the [...] biopsy result. 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 All rights reserved. The codes documented in this report are preliminary and upon apartment rental agent review may be revised to meet current compliance requirements. Attending Participation: I personally performed the entire procedure. MD Gustavo Enamorado MD 12/12/2022 9:49:01 AM This report has been signed electronically. Number of Addenda: 0 Note Initiated On: 12/12/2022 9:15 AM Total Procedure Duration Time 0 hours 21 minutes 39 seconds [facility] Work Phone: Radiology Study observation (narrative) [facility] Work Phone: Endoscopic Ultrasound (Upper )Ordered By: Gustavo Li on 12-12-2022 [facility] Work Phone: No Panel Informationon 12-12 [employer] DO Work Phone: [email or web address]} [employer] [facility] [address] DO Work Phone: [employer] DO Work Phone: Order Reconciliationon 12-12 Order [...] Metamucil [facility] orally once a day [facility] 12-Dec-2022 07:55 Metamucil [facility] orally once a day [facility] 12-Dec-2022 07:55 Metamucil [facility] is continued [...] day gummy Tums 750 mg daily Normal [facility] Surgical Pathology Depar tmenton 12-12-2022 [facility] Surgical Pathology Department Name LIZZY WELSH Pathologist: ANNY CHU MD Date of Procedure: 12/12/2022 Date Received: 12/12/2022 Date Reported 12/20/2022 Submitting Physician: GUSTAVO LI MD Location: [facility] Other External # FINAL DIAGNOSIS A. DUODENAL POLYP, BIOPSY: -- SMALL INTESTINAL MUCOSA DEMONSTRATING DILATED LYMPHATIC VESSELS, NO DYSPLASIA IDENTIFIED. Note: Multiple deeper levels were examined. Electronically Signed Out By ANNY CHU MD/[facility] By the signature on this report, the individual or group listed as making the Final Interpretation/Diagnos is certifies that they have reviewed this case. Diagnostic interpretation performed at [place] [address] Clinical History: Physician Contact Number: [phone] Ischemic Time (A): 09:35 Fixative (A): Formalin [...] submitted in toto in one cassette. mrs/12/13/2022 [facility] Department of Pathology [address] [place] [address] Normal [facility] Comment on above: Performed By: #### U [facility] #### [facility] Surgical Pathology Department [address] [place] [address] Upper EUSon 12-12-2022 Upper EUS PATIENTNAME Patient Name: Lizzy Welsh EXAMDATE Procedure Date: 12/12/2022 9:15 AM PATIENTID PATIENTACCOUNTNUM PATIENTDOB Date of : 1950 ADMITTYPE Admit Type: Outpatient PATIENTROOM Site: [facility] ETHNICITY Ethnicity: Not or RACE Race: White PROVDR Attending MD: Gustavo Li MD, [id number] ENDOPROCEDURENAME Procedure: Upper EUS INDICATION Indications: Duodenal mucosal mass/polyp found on endoscopy, 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 Refer to note in patient chart for documentation of history and physical. PRIMARYPROVIDER Providers: Gustavo Li MD (Doctor), Sara Castillo RN (Nurse), Maciel Ferrer, Middle [employer] Sports Coach EDREFPROVIDER Referring: Gustavo Li MD CURRENT_MEDS Medicines: [...] result. 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 All rights reserved. The codes documented in this report are preliminary and upon apartment rental agent review may be revised to meet current compliance requirements. ATTDRPART Attending Participation: I personally performed the entire procedure. SIGNATURENAME MD Gustavo Enamorado MD SIGNATUREDATE 12/12/2022 9:49:01 AM SIGNATUREONFILEIND This report has been signed electronically. NUMADDENDA Number of Addenda: 0 INITIATEDON Note Initiated On: 12/12/2022 9:15 AM TOTPROCTIME Total Procedure Duration Time 0 hours 21 minutes 39 seconds Normal [facility] Mayur 09-28-2022 L -- ---- Specimen: [id number] Received: 09/28/22 Status: SALVADOR Enrique Num: [id number] Spec Type: Surgical Subm Dr: Niurka Oliveira MD Tissues: A Duodenum - Biopsy (DUODENUM BX) B Esophagus Biopsy (ESOPHABEAL BX) Procedures: HE/4, Gross/Micro L4/2 ---- Age/ Patient Sex Location Account Attending Physician ---- Lizzy Welsh 72/F [id number] Niurka Oliveiar MD ---- SPEC NUM: [id number] RECD: 09/28/22 STATUS: SALVADOR ENRIQUE NUM: [id number] ELVA: 09/28/22- [facility] DR: Niurka Oliveira MD ENTERED: 09/28/[address] [facility] [address]: IDA TYPE: Surgical DEPT: S ORDERED: [...] one cassette labeled C1. ---- ---- Specimen: [id number] Received: 09/28/22 Status: SALVADOR Enrique Num: [id number] Spec Type: Surgical Subm Dr: Niurka Oliveira MD Tissues: A Duodenum - Biopsy (DUODENUM BX) B Esophagus Biopsy (ESOPHABEAL BX) Procedures: HE/4, Gross/Micro L4/2 ---- Patient: Lizzy Welsh [id number] (Continued) ---- Signed (signature on file) Baylee Newton MD 09/29/22 1009 Normal [facility] ZAK - TSHon 07-19-2022 TSH 1.271 uIU/mL Normal 0.358-3.740 [facility] Comment on above: Performed By: #### D ATTSH #### [facility] [address] [place] [address] Dr. Gertrudis Peres TSH RANGE SEE BELOW Normal [facility] Comment on above: Result Comment: <0.3 4 UIU/ml HYPERTHYROID 0.34-5.60 UIU/ml EUTHYROID >5.60 UIU/ml HYPOTHYROID Performed By: #### D ATTSH #### [facility] [address] [place] [address] Dr. Gertrudis Peres ZAK - VITAMIN Don 07-19-2022 VIT D 25-OH 26.5 ng/mL Normal [facility] Comment on above: Performed By: #### D ATVITD #### [facility] [address] [place] [address] Dr. Gertrudis Peres VIT D RANGES SEE BELOW Normal [facility] Comment on above: Result Comment: <20 ng/mL Vit D deficient 20 - <30 ng/mL Vit D insufficient 30 - 100 ng/mL Vit D sufficient >100 ng/mL Potential Toxicity Performed By: #### D ATVITD #### [facility] [address] [place] [address] Dr. Gertrudis Peres MG MAMM SCREEN 3D MANDY CADon 06-13-2022 MG MAMM SCREEN 3D MANDY CAD Patient: LIZZY WELSH Exam Date: 06/13/2022 : 1950 Gender:F Ordering : DR MCKINLEY ALFARO D.O. Admission #: [id number] Family : Order #: [id number] CLICK HERE TO VIEW EXAM RADIOLOGY REPORT [...] Treatments None Family Cancers None LOCATION: [facility] BREAST COMPOSITION: Scattered areas fibroglandular density. [...] Rose M.D. on 06/14/2022 at 11:22 Normal [facility] XR DEXA BONE DENSITYon 06-13 XR DEXA [...] High Fracture Risk Electronically authenticated by: TIFFANY VICK Date: 2022-06-13 14:55 Normal [facility] PAP ACOG PANEL 2: 30 to 65on 06-10-2022 . . Normal [facility] Comment on above: Performed By: #### [id number] #### [facility] [address] [place] [address] Dr. Gertrudis Peres Age Gdln ACOG Testing Comment Normal [facility] Comment on above: Result Comment: <21 or >65 or no age provided Performed By: #### 4 [id number] #### [facility] [address] [place] [address] [address] Gertrudis Peres DIAGNOSIS: Comment [facility] Comment on above: Result Comment: NEGA TIVE FOR INTRAEPITHELIAL LESION OR MALIGNANCY. Performed By: #### 4 [id number] #### [facility] [address] [place] [address] Dr. Gertrudis Peres Methodology: Comment [facility] Comment on above: Result Comment: This liquid based ThinPrep(R) pap test was screened with the use of an image guided system. Performed By: #### 4 [id number] #### [facility] [address] [place] [address] Dr. Gertrudis Peres Note: Comment [facility] Comment on above: Result Comment: The Pap smear is a screening test designed to aid in the detection of premalignant and malignant conditions of the uterine cervix. It is not a diagnostic procedure and should not be used as the sole means of detecting cervical cancer. Both false-positive and false-negative reports do occur. . Performed By: #### 4 [id number] #### [facility] [address] [place] [address] Dr. Gertrudis Peres Performed by: Comment Normal [facility] Comment on above: Result Comment: Yamilex Shipman Crude Tester (ASCP) Performed By: #### 4 [id number] #### [facility] [address] [place] [address] Dr. Gertrudis Peres Specimen adequacy: Comment Normal [facility] Comment on above: Result Comment: Sati sfactory for evaluation. Endocervical and/or squamous metaplastic cells (endocervical component) are present. Performed By: #### 4 [id number] #### [facility] [address] [place] [address] [address] Gertrudis Peres XR HIPS MANDY 5V [...] by: NICANOR NAQVI Date: 2022-05-03 16:34 Normal [facility] CBC AUTO DIFFon 03-31-2022 BASO # 0.0 103/ul Normal 0.0-0.1 [facility] Comment on above: Performed By: #### C BC #### [facility] [address] [place] [address] Dr. Gertrudis Peres Basophils/100 WBC (Bld) 0.5 % Normal 0.2-2.0 [facility] Comment on above: Performed By: #### C BC #### [facility] [address] [place] [address] [address] Gertrudis Peres EO # 0.3 103/ul Normal 0.0-0.7 [facility] Comment on above: Performed By: #### C BC #### [facility] [address] [place] [address] Dr. Gertrudis Peres Eosinophils/100 WBC (Bld) 4.3 % Normal 0.9-7.0 [facility] Comment on above: Performed By: #### C BC #### [facility] [address] [place] [address] Dr. Gertrudis Peres Erythrocyte distribution width (RBC) [Ratio] 13.2 % Normal 11.0-15.0 [facility] Comment on above: Performed By: #### C BC #### [facility] [address] [place] [address] Dr. Gertrudis Peres Hematocrit (Bld) [Volume fraction] 37.9 % Normal 36.0-48.0 [facility] Comment on above: Performed By: #### C BC #### [facility] [address] [place] [address] Dr. Gertrudis Peres Hemoglobin (Bld) [Mass/Vol] 12.7 g/dL Normal 12.0-16.0 [facility] Comment on above: Performed By: #### C BC #### [facility] [address] [place] [address] Dr. Gertrudis Peres IG # 0.02 10e3/ul Normal 0.00-0.03 [facility] Comment on above: Performed By: #### C BC #### [facility] [address] [place] [address] Dr. Gertrudis Peres IG % 0.3 % Normal 0.0-0.5 [facility] Comment on above: Performed By: #### C BC #### [facility] [address] [place] [address] Dr. Gertrudis Peres LYMPH # 1.7 103/ul Normal 1.2-3.8 [facility] Comment on above: Performed By: #### C BC #### [facility] [address] [place] [address] Dr. Gertrudis Peres Lymphocytes/100 WBC (Bld) 26.4 % Normal 20.5-60.0 [facility] Comment on above: Performed By: #### C BC #### [facility] [address] [place] [address] Dr. Gertrudis Peres MANUAL DIFF REQ NO Normal [facility] Comment on above: Performed By: #### C BC #### [facility] [address] [place] [address] Dr. Gertrudis Peres MCH (RBC) [Entitic mass] 28.6 pg Normal 26.7-34.0 [facility] Comment on above: Performed By: #### C BC #### [facility] [address] [place] [address] Dr. Gertrudis Peres MCHC (RBC) [Mass/Vol] 33.5 g/dL Normal 29.9-35.2 [facility] Comment on above: Performed By: #### C BC #### [facility] [address] [place] [address] Dr. Gertrudis Peres MCV (RBC) [Entitic vol] 85.4 fL Normal 81.0-99.0 [facility] Comment on above: Performed By: #### C BC #### [facility] [address] [place] [address] Dr. Gertrudis Peres MONO # 0.5 103/ul Normal 0.3-0.8 [facility] Comment on above: Performed By: #### C BC #### [facility] [address] [place] [address] Dr. Gertrudis Peres Monocytes/100 WBC (Bld) 8.1 % Normal 1.7-12.0 [facility] Comment on above: Performed By: #### C BC #### [facility] [address] [place] [address] Dr. Gertrudis Peres NEUT # 3.9 103/ul Normal 1.4-6.5 [facility] Comment on above: Performed By: #### C BC #### [facility] [address] [place] [address] Dr. Gertrudis Peres Neutrophils/100 WBC (Bld) 60.4 % Normal 43.0-75.0 [facility] Comment on above: Performed By: #### C BC #### [facility] [address] [place] [address] Dr. Gertrudis Peres Platelet mean volume (Bld) [Entitic vol] 11.3 fL Normal 9.5-13.5 [facility] Comment on above: Performed By: #### C BC #### [facility] [address] [place] [address] Dr. Gertrudis Peres PLT 215 103/ul Normal 150-450 [facility] Comment on above: Performed By: #### C BC #### [facility] [address] [place] [address] Dr. Gertrudis Peres RBC 4.44 106/ul Normal 4.20-5.40 [facility] Comment on above: Performed By: #### C BC #### [facility] [address] [place] [address] Dr. Gertrudis Peres WBC 6.5 103/ul Normal 4.0-11.0 [facility] Comment on above: Performed By: #### C BC #### [facility] [address] [place] [address] Dr. Gertrudis Peres PROF 14(COMP METB)on 022 Albumin [Mass/Vol] 3.7 g/dL Normal 3.4-5.0 [facility] Comment on above: Performed By: #### C MP #### [facility] [address] [place] [address] Dr. Gertrudis Peres Albumin/Globulin [Mass ratio] 1.1 {ratio} Normal [facility] Comment on above: Performed By: #### C MP #### [facility] [address] [place] [address] Dr. Gertrudis Peres ALP [Catalytic activity/Vol] 112 U/L Normal 46-116 [facility] Comment on above: Performed By: #### C MP #### [facility] [address] [place] [address] Dr. Gertrudis Peres ALT [Catalytic activity/Vol] 23 U/L Normal 14-59 [facility] Comment on above: Performed By: #### C MP #### [facility] [address] [place] [address] Dr. Gertrudis Peres Anion gap [Moles/Vol] 7.1 mmol/L Normal [facility] Comment on above: Performed By: #### C MP #### [facility] [address] [place] [address] Dr. Gertrudis Peres AST [Catalytic activity/Vol] 18 U/L Normal 15-37 [facility] Comment on above: Performed By: #### C MP #### [facility] [address] [address] [address] Gertrudis Peres Bilirubin [Mass/Vol] 0.4 mg/dL Normal 0.2-1.0 [facility] Comment on above: Performed By: #### C MP #### [facility] [address] [address] [address] Gertrudis Peres Calcium [Mass/Vol] 8.6 mg/dL Normal 8.5-10.1 [facility] Comment on above: Performed By: #### C MP #### [facility] [address] [address] [address] Gertrudis Peres Chloride [Moles/Vol] 105 mmol/L Normal 98-107 [facility] Comment on above: Performed By: #### C MP #### [facility] [address] [address] [address] Gertrudis Peres CO2 [Moles/Vol] 34.0 mmol/L Critically high 21.0-32.0 [facility] Comment on above: Performed By: #### C MP #### [facility] [address] [address] [address] Gertrudis Peres Creatinine [Mass/Vol] 0.80 mg/dL Normal 0.55-1.02 [facility] Comment on above: Performed By: #### C MP #### [facility] [address] [address] [address] Gertrudis Peres EGFR-AF SAMMARINESE >60 Normal >=60 [facility] Comment on above: Performed By: #### C MP #### [facility] [address] [place] [address] Dr. Gertrudis Peres EGFR-NON AF SAMMARINESE >60 Normal >=60 [facility] Comment on above: Performed By: #### C MP #### [facility] [address] [address] [address] Gertrudis Peres Globulin (S) [Mass/Vol] 3.5 g/dL Normal [facility] Comment on above: Performed By: #### C MP #### [facility] [address] [address] [address] Gertrudis Peres Glucose [Mass/Vol] 119 mg/dL Critically high 74-106 [facility] Comment on above: Performed By: #### C MP #### [facility] [address] [address] [address] Gertrudis Peres Potassium [Moles/Vol] 3.1 mmol/L Critically low 3.5-5.1 [facility] Comment on above: Performed By: #### C MP #### [facility] [address] [address] [address] Gertrudis Peres Protein [Mass/Vol] 7.2 g/dL Normal 6.4-8.2 [facility] Comment on above: Performed By: #### C MP #### [facility] [address] [address] [address] Gertrudis Peres Sodium [Moles/Vol] 143 mmol/L Normal 136-145 [facility] Comment on above: Performed By: #### C MP #### [facility] [address] [address] [address] Gertrudis Peres Urea nitrogen [Mass/Vol] 24.0 mg/dL Critically high 7.0-18.0 [facility] Comment on above: Performed By: #### C MP #### [facility] [address] [address] [address] Gertrudis Peres Urea nitrogen/Creatinine [Mass ratio] 30.0 mg/mg Normal [facility] Comment on above: Performed By: #### C MP #### [facility] [address] [address] [address] Gertrudis Peres US SINGLE QUAD UMBILon [...] TIFFANY ROSE Date: 2021-09-29 14:52 Normal [facility] CBC with Diffon 10-04-2018 Abs. Basophil 0.05 k/uL Normal 0.00-0.20 [facility] Comment on above: Performed By: #### C MPX, CDP #### [facility] [address] [place] [address] Dr[address] [place] [id number] Nub Card Tender: Peter Conklin MD Abs.Imm.Granulocyte <0.03 Normal 0.00-0.30 [facility] Comment on above: Performed By: #### C MPX, CDP #### [facility] [address] [place], [facility]83 Nub Card Tender: Peter Conklin MD Abs.Neutrophil (Seg) 4.64 k/uL Normal 1.50-8.[address] [facility] Comment on above: Performed By: #### C MPX, CDP #### [address] [place], [place] [address] Nub Card Tender: Peter Conklin MD Basophils/100 WBC (Bld) 1 % Normal 0-2 [facility] Comment on above: Performed By: #### C MPX, CDP #### [facility] [address] [place] [address] Nub Card Tender: Pteer Conklin MD Eosinophils #/vol (Bld) 0.35 10*3/uL Normal 0.00-0.44 [facility] Comment on above: Performed By: #### C MPX, CDP #### [facility] [address] [place], [place] [id number] Nub Card Tender: Peter Conklin MD Eosinophils/100 WBC (Bld) 4 % Normal 1-4 [facility] Comment on above: Performed By: #### C MPX, CDP #### [facility] [address] [place], [facility]83 Nub Card Tender: Peter Conklin MD Erythrocyte distribution width Ratio (RBC) 13.8 % Normal 11.8-14.4 [facility] Comment on above: Performed By: #### C MPX, CDP #### [facility] [address] [place], [place] [address] Nub Card Tender: Peter Conklin MD Hematocrit Volume Fraction (Bld) 44.8 % Normal 36.3-47.1 [facility] Comment on above: Performed By: #### C MPX, CDP #### [facility] [address] [place], [place] [address] Nub Card Tender: Peter Conklin MD Hemoglobin mass conc (Bld) 14.1 g/dL Normal 11.9-15.1 [facility] Comment on above: Performed By: #### C MPX, CDP #### [address] [place], [place] [address] Nub Card Tender: Peter Conklin MD Immature granulocytes #/vol (Bld) 0 % Normal 0 [facility] Comment on above: Performed By: #### C MPX, CDP #### [facility] [address] [place], [facility]83 Nub Card Tender: Peter Conklin MD Lymphocytes #/vol (Bld) 2.23 10*3/uL Normal 1.10-3.70 [facility] Comment on above: Performed By: #### C MPX, CDP #### [facility] [address] [place], [facility]83 Nub Card Tender: Peter Conklin MD Lymphocytes/100 WBC (Bld) 27 % Normal 24-43 [facility] Comment on above: Performed By: #### C MPX, CDP #### [facility] [address] [place], [place] [id number] Nub Card Tender: Peter Conklin MD MCH Entitic mass (RBC) 27.8 pg Normal 25.2-33.5 [facility] Comment on above: Performed By: #### C MPX, CDP #### [facility] [address] [place], [place] [id number] Nub Card Tender: Peter Conklin MD MCHC mass conc (RBC) 31.5 g/dL Normal 28.4-34.[address] [facility] Comment on above: Performed By: #### C MPX, CDP #### [facility] [address] [place] [address] Nub Card Tender: Peter Conklin MD MCV Entitic volume (RBC) 88.4 fL Normal 82.6-102.9 [facility] Comment on above: Performed By: #### C MPX, CDP #### [facility] [address] [place], [place] [id number] Nub Card Tender: Peter Conklin MD Monocytes #/vol (Bld) 0.84 10*3/uL Normal 0.10-1.20 [facility] Comment on above: Performed By: #### C MPX, CDP #### [facility] [address] [place], [place] 6101783 Nub Card Tender: Peter Conklin MD Monocytes/100 WBC (Bld) 10 % Normal 3-12 [facility] Comment on above: Performed By: #### C MPX, CDP #### [facility] [address] [place] [address] Nub Card Tender: Peter Conklin MD Neutrophil (Seg) 58 % Normal 36-65 [facility] Comment on above: Performed By: #### C MPX, CDP #### [facility] [address] [place] [address] Nub Card Tender: Peter Conklin MD NRBC Automated 0.0 per 100 WBC Normal 0.0 [facility] Comment on above: Performed By: #### C MPX, CDP #### [facility] [address] [place], [place] [id number] Nub Card Tender: Peter Conklin MD Platelet mean volume Entitic volume (Bld) 11.7 fL Normal 8.1-13.5 [facility] Comment on above: Performed By: #### C MPX, CDP #### [facility] [address] [place], [place] [id number] Nub Card Tender: Peter Conklin MD Platelets #/vol (Bld) 269 10*3/uL Normal 138-453 [facility] Comment on above: Performed By: #### C MPX, CDP #### [facility] [address] [place], [place] [id number] Nub Card Tender: Peter Conklin MD RBC #/vol (Bld) 5.07 10*6/uL Normal 3.95-5.11 [facility] Comment on above: Performed By: #### C MPX, CDP #### [address] [place] [address] Nub Card Tender: Peter Conklin MD WBC #/vol (Bld) 8.1 10*3/uL Normal 3.5-11.3 [facility] Comment on above: Performed By: #### C MPX, CDP #### [facility] [address] [place], [place] [id number] Nub Card Tender: Peter Conklin MD Auto Diff Performed NOT REPORTED Normal [facility] Comment on above: Performed By: #### C MPX, CDP #### [facility] [address] [place], [place] [id number] Nub Card Tender: Peter Conklin MD Platelets #/vol (Bld) NOT REPORTED Normal [facility] Comment on above: Performed By: #### C MPX, CDP #### [facility] [address] [place] [address] Nub Card Tender: Peter Conklin MD RBC morphology finding Nom (Bld) NOT REPORTED Normal [facility] Comment on above: Performed By: #### C MPX, CDP #### [facility] [address] [place] [address] Nub Card Tender: Peter Conklin MD WBC Morphology NOT REPORTED Normal [facility] Comment on above: Performed By: #### C MPX, CDP #### [facility] [address] [place] [address] Nub Card Tender: Peter Conklin MD CT ABDOMEN PELVIS WO [...] Sushant Dobbs MD 10/04/18 Final result Normal [facility] Comp Metabolic Pr/rfx MGon 0 10-04-2018 (cont.) Normal [facility] Comment on above: Result Comment: Aver age GFR for 60-69 years old: 85 mL/min/1.73sq m Chronic Kidney Disease: <60 mL/min/1.73sq m Kidney failure: <15 mL/min/1.73sq m eGFR calculated using average adult body mass. Additional eGFR calculator available at: http://www.[employer]/multiple_crcl_2012.htm Performed By: #### C MPX, CDP #### [facility] [address] [place] [address] [place] [address] Nub Card Tender: Peter Conklin MD Albumin mass conc 4.3 g/dL Normal 3.5-5.2 [facility] Comment on above: Performed By: #### C MPX, CDP #### [facility] [address] [place] [address] [place] [address] Nub Card Tender: Peter Conklin MD Albumin/Globulin mass ratio 1.2 {ratio} Normal 1.0-2.5 [facility] Comment on above: Performed By: #### C MPX, CDP #### [address] [place] [address] Nub Card Tender: Peter Conklin MD Alkaline Phos 184 U/L High 35-104 [facility] Comment on above: Performed By: #### C MPX, CDP #### [facility] [address] [place], [place] [address]83 Nub Card Tender: Peter Conklin MD ALT enzyme act/vol 16 U/L Normal 5-33 [facility] Comment on above: Performed By: #### C MPX, CDP #### [facility] [address] [place], [place] [id number] Nub Card Tender: Peter Conklin MD Anion gap molar conc 13 mmol/L Normal 9-[address] [facility] Comment on above: Performed By: #### C MPX, CDP #### [facility] [address] [place], [place] [id number] Nub Card Tender: Peter Conklin MD AST enzyme act/vol 20 U/L Normal <32 [facility] Comment on above: Performed By: #### C MPX, CDP #### [facility] [address] [place], [place] 932[address]83 Nub Card Tender: Peter Conklin MD Bilirubin Ql (U) 0.36 mg/dL Normal 0.3-1.2 [facility] Comment on above: Performed By: #### C MPX, CDP #### [facility] [address] [place], [place] [id number] Nub Card Tender: Peter Conklin MD BUN/CRE Ratio 53 High 9-20 [facility] Comment on above: Performed By: #### C MPX, CDP #### [facility] [address] [place], [place] [id number] Nub Card Tender: Peter Conklin MD Calcium mass conc 9.2 mg/dL Normal 8.6-10.4 [facility] Comment on above: Performed By: #### C MPX, CDP #### [facility] [address] [place], [place] 8355183 Nub Card Tender: Peter Conklin MD Chloride molar conc 103 mmol/L Normal 98-107 [facility] Comment on above: Performed By: #### C MPX, CDP #### [facility] [address] [place], [place] [address]183 Nub Card Tender: Peter Conklin MD CO2 molar conc 25 mmol/L Normal 20-31 [facility] Comment on above: Performed By: #### C MPX, CDP #### [facility] [address] [place], [place] 404[address]483 Nub Card Tender: Peter Conklin MD Creatinine mass conc 0.60 mg/dL Normal 0.50-0.[address] [facility] Comment on above: Performed By: #### C MPX, CDP #### [facility] [address] [place], [place] 1437883 Nub Card Tender: Peter Conklin MD GFR, Amer >60 Normal >60 [facility] Comment on above: Performed By: #### C MPX, CDP #### [facility] [address] [place], [place] 225[address]83 Nub Card Tender: Peter Conklin MD GFR,non Amer >60 Normal >[address] [facility] Comment on above: Performed By: #### C MPX, CDP #### [facility] [address] [place], [place] [address]83 Nub Card Tender: Peter Conklin MD Glucose mass conc 123 mg/dL High 70-99 [facility] Comment on above: Performed By: #### C MPX, CDP #### [facility] [address] [place], [place] 405[address]83 Nub Card Tender: Peter Conklin MD Potassium molar conc 4.0 mmol/L Normal 3.7-5.[address] [facility] Comment on above: Performed By: #### C MPX, CDP #### [facility] [address] [place], [place] [address] Nub Card Tender: Peter Conklin MD Protein mass conc 7.8 g/dL Normal 6.4-8.3 [facility] Comment on above: Performed By: #### C MPX, CDP #### [facility] [address] [place], [place] 298[address]83 Nub Card Tender: Peter Conklin MD Sodium molar conc 141 mmol/L Normal 135-144 [facility] Comment on above: Performed By: #### C MPX, CDP #### [facility] [address] [place], [place] [id number] Nub Card Tender: Peter Conklin MD Staging: [facility] Comment on above: Result Comment: Stag e 1: Some kidney damage normal GFR Stage 2: Mild kidney damage GFR 60-89 Stage 3: Moderate kidney damage GFR 30-59 Stage 4: Severe kidney damage GFR 15-29 Stage 5: Severe kidney damage GFR <15 ESRD - chronic treatment by dialysis or transplant Performed By: #### C MPX, CDP #### [facility] [address] [place], [place] [id number] Nub Card Tender: Peter Conklin MD Urea nitrogen mass conc 32 mg/dL High 8-23 [facility] Comment on above: Performed By: #### C MPX, CDP #### [facility] [address] [place], [place] [id number] Nub Card Tender: Peter Conklin MD Urinalysis, Routineon 2018 Acetoacetic Acid,Ur Negative Normal NEG [facility] Comment on above: Performed By: #### U A, UMICAO #### [facility] [address] [place], [place] [id number] Nub Card Tender: Peter Conklin MD Bilirubin, SemiQt,Ur Negative Normal NEG [facility] Comment on above: Performed By: #### U A, UMICAO #### [facility] [address] [place] [address] Nub Card Tender: Peter Conklin MD Color Nom (U) YELLOW Normal YEL [facility] Comment on above: Performed By: #### U A, UMICAO #### [facility] [address] [place] [address] Nub Card Tender: Peter Conklin MD Glucose,Semi-qnt,Ur Negative Normal NEG [facility] Comment on above: Performed By: #### U A, UMICAO #### [facility] [address] [place], [place] [address] Nub Card Tender: Peter Conklin MD Hemoglobin, Ur 3+ Abnormal NEG [facility] Comment on above: Performed By: #### U A, UMICAO #### [facility] [address] [place], [facility]83 Nub Card Tender: Peter Conklin MD Leuckocyte Esterase SMALL Abnormal NEG [facility] Comment on above: Performed By: #### U A, UMICAO #### [facility] [address] [place], [place] [address] Nub Card Tender: Peter Conklin MD Nitrite,Ur Negative Normal [facility] Comment on above: Performed By: #### U A, UMICAO #### [facility] [address] [place] [address] Dr. [place], [place] [address] Nub Card Tender: Peter Conklin MD PH,Ur 5.5 Normal 5.0-9.0 [facility] Comment on above: Performed By: #### U A, UMICAO #### [facility] [address] [place] [address] Dr. [place], [place] [address] Nub Card Tender: Peter Conklin MD Protein mass conc (U) TRACE Abnormal NEG [facility] Comment on above: Performed By: #### U A, UMICAO #### [address] [place] [id number] Nub Card Tender: Peter Conklin MD Spec. [place],Ur >1.030 High 1.010-1.020 [facility] Comment on above: Performed By: #### U A, UMICAO #### [facility] [address] [place], [place] [id number] Nub Card Tender: Peter Conklin MD Turbidity SLIGHTLY CLOUDY Abnormal CLEAR [facility] Comment on above: Performed By: #### U A, UMICAO #### [facility] [address] [place], [place] [id number] Nub Card Tender: Peter Conklin MD Urobilinogen,Ur Normal Normal NORM [facility] Comment on above: Performed By: #### U A, UMICAO #### [facility] [address] [place], [place] 1947183 Nub Card Tender: Peter Conklin MD Comment NOT REPORTED Normal [facility] Comment on above: Performed By: #### U A, UMICAO #### [facility] [address] [place], [place] [id number] Nub Card Tender: Peter Conklin MD Urinalysis,Microon 9 ----- Normal [facility] Comment on above: Performed By: #### U A, UMICAO #### [facility] [address] [place], [place] [address]83 Nub Card Tender: Peter Conklin MD Bacteria LM.HPF #/area (Urine sed) TRACE Abnormal [facility] Comment on above: Performed By: #### U A, UMICAO #### [facility] [address] [place], [place] [id number] Nub Card Tender: Peter Conklin MD Epithelial cells LM.HPF #/area (Urine sed) 2 TO 5 Normal 0-25 [facility] Comment on above: Performed By: #### U A, UMICAO #### [facility] [address] [place], [place] [id number] Nub Card Tender: Peter Conklin MD Mucus Strands TRACE Abnormal [facility] Comment on above: Performed By: #### U A, UMICAO #### [facility] [address] [place], [facility] Nub Card Tender: Peter Conklin MD RBC #/vol (U) 50 TO 100 Normal 0-2 [facility] Comment on above: Performed By: #### U A, UMICAO #### [facility] [address] [place] [address] Nub Card Tender: Peter Conklin MD WBC #/vol (U) 2 TO 5 Normal 0-5 [facility] Comment on above: Performed By: #### U A, UMICAO #### [facility] [address] [place] [address] Nub Card Tender: Peter Conklin MD Amorphous sediment LM Ql (Urine sed) NOT REPORTED Normal [facility] Comment on above: Performed By: #### U A, UMICAO #### [facility] [address] [place], [facility] Nub Card Tender: Peter Conklin MD Casts LM.LPF #/area (Urine sed) NOT REPORTED Normal [facility] Comment on above: Performed By: #### U A, UMICAO #### [facility] [address] [place], [facility] Nub Card Tender: Peter Conklin MD Crystals LM Nom (Urine sed) NOT REPORTED Normal [facility] Comment on above: Performed By: #### U A, UMICAO #### [facility] [address] [place], [facility] Nub Card Tender: Peter Conklin MD Epithelial, Renal NOT REPORTED Normal 0 [facility] Comment on above: Performed By: #### U A, UMICAO #### [facility] [address] [place] [address] Nub Card Tender: Peter Conklin MD Other Observations NOT REPORTED Normal NREQ [facility] Comment on above: Performed By: #### U A, UMICAO #### [facility] [address] [place], [place] [id number] Nub Card Tender: Peter Conklin MD Trichomonas NOT REPORTED Normal NONE [facility] Comment on above: Performed By: #### U A, UMICAO #### [facility] [address] [place], [place] [id number] Nub Card Tender: Peter Conklin MD Yeast LM Ql (Urine sed) NOT REPORTED Normal NONE [facility] Comment on above: Performed By: #### U A, UMICAO #### [facility] [address] [place], [place] [id number] Nub Card Tender: Peter Conklin MD Vital Signs Date Time Vital Sign Value Performing Clinician Facility 10-30-2023 09:35-0400 Body height 160.02 cm DO Mckinley Ball Work Phone: [facility] 10-30-2023 09:35-0400 Body mass index (BMI) [Ratio] 37.3 kg/m2 DO Mckinley Ball Work Phone: [facility] 10-30-2023 09:35-0400 Body weight 95.42 kg DO Mckinley Ball Work Phone: [facility] 10-30-2023 09:35-0400 Diastolic blood pressure 89 mm[Hg] DO Mckinley Ball Work Phone: [facility] 10-30-2023 09:35-0400 Heart rate 82 /min DO Mckinley Ball Work Phone: [facility] 10-30-2023 09:35-0400 Respiratory rate 12 /min DO Mckinley Ball Work Phone: [facility] 10-30-2023 09:35-0400 Systolic blood pressure 164 mm[Hg] DO Mckinley Ball Work Phone: [facility] 10-12-2023 09:18-0400 Body height 160.02 cm DO Mckinley Ball Work Phone: [facility] 10-12-2023 09:18-0400 Body mass index (BMI) [Ratio] 37 kg/m2 DO Mckinley Ball Work Phone: [facility] 10-12-2023 09:18-0400 Body weight 94.85 kg DO Mckinley Ball Work Phone: [facility] 10-12-2023 09:18-0400 Diastolic blood pressure 77 mm[Hg] DO Mckinley Ball Work Phone: [facility] 10-12-2023 09:18-0400 Heart rate 77 /min DO Mckinley Ball Work Phone: [facility] 10-12-2023 09:18-0400 Respiratory rate 12 /min DO Mckinley Ball Work Phone: [facility] 10-12-2023 09:18-0400 Systolic blood pressure 148 mm[Hg] DO Mckinley Ball Work Phone: [facility] 07-30-2023 15:01-0400 Body height 160.02 cm DO Mckinley Ball Work Phone: [facility] 07-30-2023 15:01-0400 Body mass index (BMI) [Ratio] 36.6 kg/m2 DO Mckinley Ball Work Phone: [facility] 07-30-2023 15:01-0400 Body weight 93.66 kg DO Mckinley Ball Work Phone: [facility] 07-30-2023 15:01-0400 Diastolic blood pressure 90 mm[Hg] DO Mckinley Ball Work Phone: [facility] 07-30-2023 15:01-0400 Heart rate 75 /min DO Mckinley Ball Work Phone: [facility] 07-30-2023 15:01-0400 Systolic blood pressure 149 mm[Hg] DO Mckinley Ball Work Phone: [facility] 06-13-2023 09:00-0500 Body height 161.29 cm Mckinley Ball Other [employer] [facility] [employer] Other 06-13-2023 09:00-0500 Body mass index (BMI) [Ratio] 35.43 kg/m2 Mckinley Ball Other [employer] Other 06-13-2023 09:00-0500 Body weight 92.17 kg Mckinley Ball Other [employer] Other 06-13-2023 09:00-0500 Diastolic blood pressure 77 mm[Hg] Mckinley Ball Other [employer] Other 06-13-2023 09:00-0500 Respiratory rate 12 /min Mckinley Ball Other [employer] Other 06-13-2023 09:00-0500 Systolic blood pressure 127 mm[Hg] Mckinley Ball Other [employer] Other 05-03-2023 08:30-0500 Body height 161.29 cm Mckinley Ball Other [employer] Other 05-03-2023 08:30-0500 Body mass index (BMI) [Ratio] 35.39 kg/m2 Mckinley Ball Other [employer] Other 05-03-2023 08:30-0500 Body weight 92.08 kg Mckinley Ball Other [employer] Other 05-03-2023 08:30-0500 Diastolic blood pressure 79 mm[Hg] Mckinley Ball Other [employer] Other 05-03-2023 08:30-0500 Respiratory rate 12 /min Mckinley Ball Other [employer] Other 05-03-2023 08:30-0500 Systolic blood pressure 133 mm[Hg] Mckinley Ball Other [employer] Other 03-08-2023 09:30-0400 Body height 161.29 cm Mckinley Ball Other [employer] Other 03-08-2023 09:30-0400 Body mass index (BMI) [Ratio] 35.01 kg/m2 Mckinley Ball Other [employer] Other 03-08-2023 09:30-0400 Body weight 91.08 kg Mckinley Ball Other [employer] Other 03-08-2023 09:30-0400 Diastolic blood pressure 83 mm[Hg] Mckinley Ball Other [employer] Other 03-08-2023 09:30-0400 Respiratory rate 12 /min Mckinley Ball Other [employer] Other 03-08-2023 09:30-0400 Systolic blood pressure 134 mm[Hg] Mckinley Ball Other [employer] Other 01-04-2023 11:30-0400 Body height 161.29 cm Mckinley Ball Other [employer] Other 01-04-2023 11:30-0400 Body mass index (BMI) [Ratio] 34.69 kg/m2 Mckinley Ball Other [employer] Other 01-04-2023 11:30-0400 Body weight 90.27 kg Mckinley Ball Other [employer] Other 01-04-2023 11:30-0400 Diastolic blood pressure 81 mm[Hg] Mckinley Ball Other [employer] Other 01-04-2023 11:30-0400 Respiratory rate 12 /min Mckinley Ball Other [employer] Other 01-04-2023 11:30-0400 Systolic blood pressure 131 mm[Hg] Mckinley Ball Other [employer] Other 12-12-2022 07:50-0400 Body height 153.1 cm Gustavo Li MD Work Phone: [facility] 12-12-2022 07:50-0400 Body mass index (BMI) [Ratio] 38.4 kg/m2 Gustavo Li MD Work Phone: [facility] 12-12-2022 07:50-0400 Body weight 90 kg Gustavo Li MD Work Phone: [facility] 11-01-2022 14:30-0400 Body height 161.29 cm Keara Bullard Other [employer] Other 11-01-2022 14:30-0400 Body mass index (BMI) [Ratio] 35.22 kg/m2 Keara Bullard Other [employer] Other 11-01-2022 14:30-0400 Body weight 91.63 kg Keara Bullard Other [employer] Other 11-01-2022 14:30-0400 Diastolic blood pressure 84 mm[Hg] Keara Bullard Other [employer] Other 11-01-2022 14:30-0400 Systolic blood pressure 130 mm[Hg] Keara Bullard Other [employer] Other 09-28-2022 10:05-0400 Diastolic blood pressure 75 mm[Hg] DO [employer] Work Phone: [facility] 09-28-2022 10:05-0400 Heart rate 60 /min DO [employer] Work Phone: [facility] 09-28-2022 10:05-0400 Respiratory rate 16 /min DO Arnoldo [employer] Work Phone: [facility] 09-28-2022 10:05-0400 SaO2% (BldA) [Mass fraction] 98 % DO Arnoldo [employer] Work Phone: [facility] 09-28-2022 10:05-0400 Systolic blood pressure 153 mm[Hg] DO Arnoldo [employer] Work Phone: [facility] 09-28-2022 07:48-0400 Body height 160.02 cm DO Arnoldo [employer] Work Phone: [facility] 09-28-2022 07:48-0400 Body temperature 98.9 [degF] DO Arnoldo [employer] Work Phone: [facility] 09-28-2022 07:48-0400 Body weight 93.89 kg DO Arnoldo [employer] Work Phone: [facility] 07-04-2022 09:30-0500 Body height 161.29 cm Mckinley Ball Other [facility] [employer] Other 07-04-2022 09:30-0500 Body mass index (BMI) [Ratio] 36.3 kg/m2 Mckinley Ball Other [employer] Other 07-04-2022 09:30-0500 Body weight 94.44 kg Mckinley Ball Other [employer] Other 07-04-2022 09:30-0500 Diastolic blood pressure 78 mm[Hg] Mckinley Ball Other [employer] Other 07-04-2022 09:30-0500 Respiratory rate 12 /min Mckinley Ball Other [employer] Other 07-04-2022 09:30-0500 Systolic blood pressure 122 mm[Hg] Mckinley Alfaro Other [employer] Other 03-09-2022 15:30-0400 Body height 161.29 cm Arabella Arechiga Other [employer] Other 03-09-2022 15:30-0400 Body mass index (BMI) [Ratio] 36.79 kg/m2 Arabella Arechiga Other [employer] Other 03-09-2022 15:30-0400 Body temperature 97.1 [degF] Arabella Arechiga Other [employer] Other 03-09-2022 15:30-0400 Body weight 95.71 kg Arabella Arechiga Other [employer] Other 03-09-2022 15:30-0400 Diastolic blood pressure 85 mm[Hg] Arabella Arechiga Other [employer] Other 03-09-2022 15:30-0400 Respiratory rate 18 /min Arabella Arechiga Other [employer] Other 03-09-2022 15:30-0400 SaO2% (BldA) [Mass fraction] 99 % Arabella Arechiga Other [employer] Other 03-09-2022 15:30-0400 Systolic blood pressure 135 mm[Hg] Arabella Pimentelault Other [employer] Other Encounters Encounter Date Encounter Type Care Provider Facility Start: 10-30-2023 End: 10-30-2023 ambulatory DO Mckinley Alfaro Work Phone: [facility] Work Phone: Start: 10-30-2023 End: 10-30-2023 Patient encounter procedure DO Mckinley Ball Work Phone: [facility] Work Phone: Start: 10-12-2023 End: 10-12-2023 ambulatory DO Mckinley Ball Work Phone: [facility] Work Phone: Start: 10-12-2023 End: 10-12-2023 Patient encounter procedure DO Mckinley Ball Work Phone: [facility] Work Phone: Start: 09-13-2023 End: 09-13-2023 ambulatory Mckinley Ball Facility:[facility] Start: 09-13-2023 End: 09-13-2023 ambulatory DO Mckinley Ball Work Phone: [facility] Work Phone: Start: 09-13-2023 End: 09-13-2023 Patient encounter procedure DO Mckinley Ball Work Phone: [facility] [address] Work Phone: Start: 09-12-2023 End: 09-12-2023 ambulatory Mckinley Ball Facility:[facility] Start: 09-12-2023 End: 09-12-2023 ambulatory DO Mckinley Ball Work Phone: [facility] Work Phone: Start: 09-12-2023 End: 09-12-2023 Patient encounter procedure DO Mckinley Ball Work Phone: [facility] [address] Work Phone: Start: 09-06-2023 End: 09-07-2023 ambulatory JIL HONG Not Available Start: 08-23-2023 End: 08-23-2023 ambulatory JIL HONG Not Available Start: 08-03-2023 Non-patient / Non-visit DO Augie rios Ball Work Phone: [facility] [employer] Work Phone: Start: 07-30-2023 End: 07-30-2023 Patient encounter procedure DO Mckinley Alfaro Work Phone: [facility] Work Phone: Start: 07-26-2023 End: 07-27-2023 ambulatory JIL HONG Not Available Start: 07-10-2023 End: 07-10-2023 ambulatory JIL HONG Not Available Start: 06-15-2023 End: 06-15-2023 ambulatory LYRIC RODRIGUEZ Not Available Start: 06-13-2023 Office outpatient vi sit 15 minutes Mckinley Alfaro [facility] Start: 06-13-2023 End: 06-14-2023 ambulatory JOHN Keeley JAMIEING [facility] [employer] Other Start: 06-12-2023 End: 06-12-2023 ambulatory DELL ALEX Not Available Start: 06-11-2023 End: 06-11-2023 ambulatory [...] Available Start: 05-18-2023 End: 05-18-2023 ambulatory Mckinley Saleem Other [employer] Other Start: 05-18-2023 Telephone encounter Mckinley Alfaro [facility] Start: 05-10-2023 End: 05-10-2023 ambulatory RACHELLE TATTERSALL Not Available Start: 05-08-2023 End: 05-08-2023 ambulatory JIL HONG Not Available Start: 05-07-2023 End: 05-08-2023 ambulatory AL SALGADO Not Available Start: 05-03-2023 End: 05-03-2023 ambulatory IVONNE CASTELLANO [employer] Other Start: 05-03-2023 Office outpatient vi sit 15 minutes Mckinley Alfaro [facility] Start: 04-30-2023 End: 05-01-2023 ambulatory IVONNE CASTELLANO Not Available Start: 04-25-2023 End: 04-25-2023 ambulatory JOHN B APLING Not Available Start: 04-20-2023 End: 04-21-2023 ambulatory IVONNE CASTELLANO Not Available Start: 04-17-2023 End: 04-17-2023 ambulatory JIL Nagy SHERRIE Not Available Start: 04-16-2023 End: 04-16-2023 ambulatory YSABEL NIURKA Not Available Start: 04-09-2023 End: 04-09-2023 ambulatory YSABEL NIURKA Not Available Start: 04-06-2023 End: 04-09-2023 ambulatory LYRIC RODRIGUEZ Not Available Start: 04-03-2023 End: 04-03-2023 ambulatory YSABEL BAH Not Available Start: 03-30-2023 End: 04-02-2023 ambulatory JOHN B APLING Not Available Start: 03-08-2023 End: 03-08-2023 ambulatory Mckinley Alfaro Other [employer] Other Start: 03-08-2023 Office outpatient vi sit 15 minutes Mckinley Alfaro [facility] Start: 02-07-2023 End: 02-07-2023 ambulatory Mckinley Alfaro Other [employer] Other Start: 02-07-2023 Telephone encounter Mckinley Alfaro [facility] Start: 01-04-2023 End: 01-04-2023 ambulatory Mckinley Alfaro Other [employer] Other Start: 01-04-2023 Encounter for other preprocedural examination Mckinley Saleem [facility] Start: 01-04-2023 Office outpatient vi sit 25 minutes Mckinley Ball [facility] Start: 12-21-2022 Message Mckinley chase Work Phone: [facility]Ely[address] a [address] DO Work Phone: Start: 12-12-2022 End: 12-12-[address] Gustavo Li Facility:[id number] Start: 12-12-2022 End: 12-12-2022 Subsequent hospital visit by physician Gustavo Li MD Work Phone: [facility] Comment on above: Polyp of stomach and duodenum Start: 11-16-2022 End: 11-16-2022 ambulatory Mckinley Alfaro Other [employer] Other Start: 11-16-2022 Telephone encounter [facility] Start: 11-01-2022 End: 11-01-2022 ambulatory Keara Bullard Other [place] [employer] Other Start: 11-01-2022 Office outpatient vi sit 15 minutes Keara DAS [facility] Start: 09-28-2022 End: 09-28-2022 ambulatory Niurka Oliveira Facility:[facility] Start: 09-28-2022 End: 09-28-2022 Admission to same day surgery center DO Arnoldo House Work Phone: [facility] Work Phone: Start: 09-28-2022 End: 09-28-2022 ambulatory DO Arnoldo House Work Phone: [facility] Work Phone: Start: 07-20-2022 End: 07-20-2022 ambulatory Mckinley Alfaro Other [employer] Other Start: 07-20-2022 Telephone encounter [facility] Start: 07-19-2022 End: 07-20-[address] MCKINLEY ALFARO Facility:[facility] Start: 07-04-2022 End: 07-04-2022 ambulatory Mckinley Alfaro Other [employer] Other Start: 07-04-2022 Office outpatient vi sit 25 minutes Mckinley DAS [facility] Start: 06-14-2022 End: 06-14-2022 ambulatory rAabella Arechiga Other [employer] Other Start: 06-14-2022 Telephone encounter Arabella vega [facility] Start: 06-13-2022 End: 06-14-[address] MCKINLEY ALFARO Facility:[facility] Start: 06-07-2022 End: 06-07-[address] MCKINLEY ALFARO Facility:[facility] Start: 05-03-2022 End: 05-04-[address] MCKINLEY ALFARO Facility:[facility] Start: 03-31-2022 End: 04-01-[address] MCKINLEY ALFARO Facility:[facility] Start: 03-09-2022 End: 03-09-2022 ambulatory Arabella Arechiga Other [employer] Other Start: 03-09-2022 Office outpatient vi sit 15 minutes Arabella Arechiga [facility] [place] Start: 09-29-2021 End: 09-30-[address] MCKINLEY ALFARO Facility:[facility] Start: 10-05-2018 End: 10-05-2018 Emergency department patient visit MCKINLEY ALFARO [facility] Start: 10-04-2018 End: 10-04-2018 Emergency department patient visit HARJIT OLIVIA [facility] Start: 09-25-2017 End: 09-26-2017 Ambulatory DEFAULT PHYSICIAN Facility:[facility] Start: 09-07-2017 End: 09-08-2017 Ambulatory DEFAULT PHYSICIAN Facility:[facility] Procedures Date Procedure Procedure Detail Performing Clinician Start: 09-13-2023 Plain X-ray of bilateral hands DO Grayson in [place] Work Phone: Start: 09-13-2023 Plain chest X-ray DO Mckinley Alfaro Work Phone: Start: 12-12-2022 SURGICAL PATHOLOGY RESULTS Gustavo Li MD Work Phone: Start: 12-12-2022 Esophagoscopy flexible transoral ultrasound exam Gustavo Li MD Work Phone: Start: 09-28-2022 Esophagogastroduodenoscopy DO Arnoldo Jones use Work Phone: Start: 10-04-2018 Urinalysis microscopic only HARJITVic OLIVIA Start: 10-04-2018 Urnls dip stick/tablet rgnt auto w/o microscopy HARJIT EITCHES Start: 10-04-2018 Ct abdomen & pelvis w/o contrast material HARJIT EITCHES Start: 10-04-2018 INSERT PERIPHERAL IV HARJIT EINALDOCHAN Start: 10-04-2018 Blood count complete auto&auto difrntl wbc HARJIT OUMOUCHAN Plan of Treatment Date Care Activity Detail Author Start: 09-12-2023 Hepatitis B core antibody measurement [facility] Start: 09-12-2023 [facility] Start: 01-19-2023 Influenza vaccination Influenza Vaccine (#1) [facility] Start: 09-28-2022 [facility] Start: 2017 Pneumococcal Vaccine: 65+ Years (1 - PCV) Pneumococcal Vaccine: 65+ Years (1 - PCV) [facility] Start: 2002 Zoster Vaccines (1 of 2) Zoster Vaccines (1 of 2) [facility] Start: 1992 Screening for malignant neoplasm of breast Mammogram [facility] Start: 1974 DTaP/Tdap/Td Vaccines (1 - Tdap) DTaP/Tdap/Td Vaccines (1 - Tdap) [facility] Start: 1970 Hepatitis C screening Hepatitis C Screening [facility] Start: 1952 COVID-19 Vaccine (#1) COVID-19 Vaccine (#1) [facility] Start: 1952 Lipid panel Lipid Panel [facility] Start: 1952 Screening for malignant neoplasm of colon [facility] Start: 1952 Screening for osteoporosis Bone Density Scan [facility] Start: 1952 Yearly Adult Physical Yearly Adult Physical [facility] Comprehensive metabo lic 2000 panel - Serum or Plasma [facility] Hepatitis B virus jimenez rface Ab [Presence] in Serum [facility] Hepatitis B virus jimenez rface Ag [Presence] in Serum or Plasma by Immunoassay [facility] Hepatitis C virus Ig G Ab [Presence] in Serum or Plasma by Immunoassay [facility] MG Breast - bilatera l Screening [facility] Patient Education Esophageal Dil ation Hiatal Hernia (DC) Stomach Polyps [facility] Work Phone: Rheumatoid factor [Units/volume] in Serum or Plasma [facility] Thyroid stimulating immunoglobulins actual/normal in Serum [facility] XR Hip - left 2 Views [facility] Immunizations Immunization Date Immunization Notes Care Provider Fa cility 03-08-2023 influenza virus vaccine, unspecified formulation DO Mckinley Alfaro Work Phone: [facility] 03-08-2023 influenza, high dose seasonal, preservative-free Mckinley Alfaro Other [employer] [facility] [employer] Other 04-07-2022 diphtheria, tetanus toxoids and acellular pertussis vaccine, unspecified formulation Mckinley Alfaro Other [facility] 03-01-2022 influenza virus vaccine, split virus (incl. purified surface antigen) Mckinley Alfaro Other [employer] Other 03-01-2022 influenza virus vaccine, unspecified formulation DO Mckinley Saleem Work Phone: [facility] 08-04-2019 pneumococcal conjuga te vaccine, 13 valent Mckinley Alfaro Other [facility] Payers Date Payer Category Payer Self-pay [id number] 2022 Unknown [id number] 2015 Unknown [id number] 2015 Unknown [id number] 1959 Medicare [id number] [id number] 1959 Self-pay [id number] 1959 Unknown [id number] 2.16.840.1.591018.19 1952 Unknown [id number] 2.16.840.1.146181.3.579.2.1 73 1952 Unknown [id number] 2.16.840.1.661284.3.579.2.1 73 1952 Unknown [id number] 2.16.840.1.469167.3.579.2.5 93 1952 Unknown [id number] 2.16.840.1.266872.3.579.2.5 93 1952 Unknown [id number] 2.16.840.1.091568.3.579.2.5 93 1952 Unknown [id number] 2.16.840.1.273648.3.579.2.5 93 1952 Unknown [id number] 2.16.840.1.428184.3.579.2.5 93 1952 Unknown [id number] 2.16.840.1.997769.3.579.2.1 069 1952 Unknown [id number] 2.16.840.1.517876.3.579.2.1 259 1952 Unknown [id number] 2.16.840.1.848801.3.579.2.1 259 1952 Unknown [id number] 2.16.840.1.013236.3.579.2.1 259 1952 Unknown [id number] 2.16.840.1.114437.3.579.2.1 259 1952 Unknown [id number] 2.16.840.1.548041.3.579.2.1 259 1952 Unknown [id number] 2.16.840.1.961130.3.579.2.1 259 1952 Unknown [id number] 2.16.840.1.779762.3.579.2.1 259 1952 Unknown [id number] 2.16.840.1.779042.3.579.2.1 259 1952 Unknown [id number] 2.16.840.1.978607.3.579.2.1 259 1952 Unknown [id number] 2.16.840.1.683045.3.579.2.1 259 1952 Unknown [id number] 2.16.840.1.551409.3.579.2.1 259 1952 Unknown [id number] 2.16.840.1.166502.3.579.2.1 259 1952 Unknown [id number] 2.16.840.1.976942.3.579.2.1 259 1952 Unknown [id number] 2.16.840.1.122894.3.579.2.1 259 1952 Unknown [id number] 2.16.840.1.370990.3.579.2.1 259 1952 Unknown [id number] 2.16.840.1.062643.3.579.2.1 259 1952 Unknown [id number] 2.16.840.1.410003.3.579.2.1 259 1952 Unknown [id number] 2.16.840.1.707687.3.579.2.1 259 1952 Unknown [id number] 2.16.840.1.026726.3.579.2.1 259 1952 Unknown [id number] 2.16.840.1.953307.3.579.2.1 259 1952 Unknown [id number] 2.16.840.1.652120.3.579.2.1 259 1952 Unknown [id number] 2.16.840.1.276320.3.579.2.1 259 1952 Unknown [id number] 2.16.840.1.799133.3.579.2.1 259 1952 Unknown [id number] 2.16.840.1.763586.3.579.2.1 259 1952 Unknown [id number] 2.16.840.1.588866.3.579.2.1 259 1952 Unknown [id number] 2.16.840.1.676248.3.579.2.1 259 1952 Unknown [id number] 2.16.840.1.616221.3.579.2.1 259 1952 Unknown [id number] 2.16.840.1.245943.3.579.2.1 259 1952 Unknown [id number] 2.16.840.1.858579.3.579.2.1 259 Medicare Medicare-OP No Part B [id number] Unknown Unknown [id number] 2.16.840.1.109894.3.579.2.5 93 Unknown [id number] 2.16.840.1.089157.3.579.2.5 31 Unknown [id number] 2.16.840.1.134129.3.579.2.5 31 Unknown [id number] 2.16.840.1.176151.3.579.2.5 31 Worker's Compensation [employer] Misc [id number] Social History Date Type Detail Facility Unknown if ever smoked [employer] Other Sex Assigned At [employer] Other Start: 09-28-2022 Tobacco smoking status NHIS Never smoked tobacco (finding) [facility] Start: 1950 Sex Assigned At Female F [facility] Tobacco smoking status WVIS Tobacco smoking consumption unknown [facility] Work Phone: Start: 1950 Sex Assigned At Not on file [facility] Work Phone: Goals Date Patient Goal Desired [...] Orthopedics w/ increased pain or trigger finger [employer] Other 12-14-2023 Evaluation note* Encounter Date Diagnosis [...] index [BMI] 35.0-35.9, adult (ICD-10 - Z68.35) [employer] Other 10-19-2023 Evaluation note* Encounter Date Diagnosis [...] to r/o fracture Continue Mobic and add [place] for now. Consider PT if XR negative Feb, Right hip pain (ICD-10 - M25.551) XR to determine degree of arthritis and r/o fx. ROM exercises COntinue Mobic and add [place] for now. Feb, Seborrheic dermatitis (ICD-10 - [...] index [BMI] 35.0-35.9, adult (ICD-10 - Z68.35) [employer] Other 08-17-2023 Evaluation note* Encounter Date Diagnosis [...] also instructed to stop Mobic and start [place], 7 days prior to her procedure. Dec, Gastroesophageal reflux disease with esophagitis without hemorrhage (ICD-10 - K21.00) Stable, continue medication w/o interruption Dec, Traumatic complete tear of right rotator cuff, subsequent encounter (ICD-10 - S46.011D) Scheduled for arthroscopic repair w/ Dr. Hong. 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 Refer to note in patient chart for documentation of history and physical. Providers: Gustavo Li MD (Doctor), Sara Castillo RN (Nurse), Maciel Ferrer, [employer] Referring: Gustavo Li MD Medicines: See the [...] biopsy result. 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 Discussed options of treatment due to pt leaving for [place] on Sunday. SHe is agreeable to kenalog [...] Oct, Right hip pain (ICD-10 - M25.551) [employer] [facility] Encounter Date Diagnosis Assessment [...] exercise for 30 minutes, 3-5 times weekly. [employer] Other 10-20-2022 Evaluation note* Encounter Date Diagnosis [...] with primary care provider to discuss reaction. [employer] Other Evaluation noteNo InformationNort [employer] Other Evaluation note* Diagnosis Onset Date Resolution Status Dysphagia acute [facility] Work Phone: Evaluation note* Diagnosis Polyp of stomach and duodenum documented in this encounter [facility] Work Phone: Evaluation note* Diagnosis Onset Date Resolution Status Age-related osteoporosis wit hout current pathological fracture acute Dupuytren's contracture of right hand acute GERD (gastroesophageal reflux disease) acute Hypertension acute Inflammatory polyarthritis a cute Lumbar spondylosis acute Trigger finger acute Medicare annual wellness visit, subsequent noneactive Screening mammogram for breast cancer noneactive [facility] Work Phone: Evaluation note* Diagnosis Onset [...] Strain of hip and thigh acut e [facility] Work Phone: Evaluation note* Diagnosis Onset Date Resolution Status Left hip pain acute Primary osteoarthritis of hip acute Strain of hip and thigh acut e Age-related osteoporosis wit hout current pathological fracture acute Fibromyalgia acute GERD (gastroesophageal reflux disease) acute Hypertension acute Inflammatory polyarthritis a cute Lumbar spondylosis acute Trigger finger acute [facility] Work Phone: History general Narrative - Reported* Type Description Date Medical History Hypertension Medical History Acid reflux Medical History Hiatal hernia Surgical History back surgery x3 Surgical History Neck Surgery Surgical History shoulder arthroscopy Surgical History hysterectomy Surgical History cholecystectomy Hospitalization History see above [employer] Other Hisxtrf general Narrative - Reported* Type Description Date Medical History Hypertension Medical History Acid reflux Medical History Hiatal hernia Surgical History back surgery x3 Surgical History Neck Surgery Surgical History shoulder arthroscopy Surgical History hysterectomy Surgical History cholecystectomy Surgical History EGD w/ bx and dilatation 09/2022 Hospitalization History see above [employer] Other Hishttm general Narrative - Reported* Type Description Date Medical History Hypertension Medical History Acid reflux Medical History Hiatal hernia Surgical History back surgery x3 Surgical History Neck Surgery Surgical History shoulder arthroscopy Surgical History hysterectomy Surgical History cholecystectomy Surgical History EGD w/ bx and dilatation 09/2022 Surgical History Right shoulder arthroscopy 02/07 23 Hospitalization History see above [employer] Other Hiszhip general Narrative - Reported* Type Description Date Medical History Hypertension Medical History Acid reflux Medical History Hiatal hernia Surgical History back surgery x3 Surgical History Neck Surgery Surgical History shoulder arthroscopy Surgical History hysterectomy Surgical History cholecystectomy Surgical History EGD w/ bx and dilatation 09/2022 Surgical History Right shoulder arthroscopy 02/07 23 Surgical History Endoscopic US 11/2022 Hospitalization History see above [employer] Other Hospital Discharge instructions Additional Instructions DISCHARGE [...] if you have any problems. -Office number [phone] Work Phone: Summary Purpose Family History [...] and content) DATE CREATED AUTHOR 11/08/2017 [facility] DATE CREATED AUTHOR AUTHOR'S GURPREET JIMENEZ 10/13/2018 [facility] DATE CREATED AUTHOR AUTHOR'S ORGANIZ ATION 07/21/2022 [facility] DATE CREATED AUTHOR AUTHOR'S ORGANIZ ATION 12/21/2022 [facility] DATE CREATED AUTHOR AUTHOR'S ORGANIZ ATION 12/22/2022 [facility] DATE CREATED AUTHOR AUTHOR'S ORGANIZ ATION 09/10/[address] [facility] EPIC DATE CREATED AUTHOR AUTHOR'S ORGANIZ ATION 09/21/2023 [facility] REASON FOR VISIT (unrecogniz ed section and content) Reason Comments Other EGD/EUS D49.0 [id number] Care Teams (unrecognized sec tion and content) [...] Active Niurka Oliveira MD Attending Provider Active Office Rn Relationship Specialty Start Date End Date Mckinley Alfaro DO PCP - General 12/08/22 Team Status: Active Member Role Status Dates Mckinley Alfaro DO Primary Care Provider Active Team Status: Inactive Member Role Status Dates Mckinley Alfaro DO Primary Care Provide r, Attending Provider Active Start: July 30, 2023 End: July 30, 2023 Team Status: Active Member Role Status Dates Mckinley Saleem DO Primary Care Provide r, Attending Provider [...] BE BASED ON THE PRIMARY CLINICAL RECORDS. [employer] provides no warranty or guarantee of the accuracy or completeness of information in this document.
[2023-12-31 08:30] LABS: Basophils Percent Auto 0.5 % (0.2-2.0); Eosinophils Absolute Auto 0.3 10^3/uL (0.0-0.7); Eosinophils Percent Auto 4.9 % (0.9-7.0); Hemoglobin 11.4 g/dL (12.0-16.0); Immature Granulocytes Abs Auto 0.02 10^3/uL (0.00-0.03); Immature Granulocytes Pct Auto 0.4 % (0.0-0.5); Lymphocytes Absolute Auto 1.4 10^3/uL (1.2-3.8); Lymphocytes Percent Auto 24.7 % (20.5-60.0); Mean Corpuscular HGB Conc 32.6 g/dL (29.9-35.2); Mean Corpuscular Hemoglobin 29.2 pg (26.7-34.0); Mean Corpuscular Volume 89.5 fL (81.0-99.0); Mean Platelet Volume 11.7 fL (9.5-13.5); Monocytes Absolute Auto 0.6 10^3/uL (0.3-0.8); Monocytes Percent Auto 10.4 % (1.7-12.0); Neutrophils Absolute Auto 3.4 10^3/uL (1.4-6.5); Neutrophils Percent Auto 59.1 % (43.0-75.0); Platelet Count 228 10^3/uL (150-450); Red Blood Count 3.91 10^6/uL (4.20-5.40); Red Cell Distribution Width 15.1 % (11.0-15.0); White Blood Count 5.7 10^3/uL (4.0-11.0)
[2023-12-31 08:32] LABS: Erythrocyte Sedimentation Rate 19 mm/hr (<=30)
[2023-12-31 08:59] LABS: Alanine Aminotransferase 31 U/L (14-59); Albumin Level 3.3 g/dL (3.4-5.0); Alkaline Phosphatase 93 U/L (46-116); Aspartate Amino Transferase 20 U/L (15-37); Bilirubin Direct 0.1 mg/dL (0.0-0.2); Bilirubin Total 0.6 mg/dL (0.2-1.0); Estimated GFR (African America >60 (>=60); Estimated GFR (Non-African Ame 55 (>=60); Globulin 3.2 g/dL; Total Protein 6.5 g/dL (6.4-8.2)
== END 2023-12-31 08:15 | disposition home or self-care (01) ==
LOC: LAB 08:16
PROVIDERS: PCP Internal Medicine; Visit Provider Internal Medicine Rheumatology
DX: L40.51 Distal interphalangeal psoriatic arthropathy (principal)
CPT/HCPCS: 36415; 80076; 82565; 85025; 85652

== ENCOUNTER 2024-02-26 11:57 | Outpatient (OUT) | payer MEDICARE, OTHER, SELFPAY ==
--- OUTSIDE RECORDS SUMMARY | 2024-02-25 08:56 | XMS_ITS | CCD ---
Author Organization [facility] Care Team Providers Care Media Director Name Role Phone PHYSICIAN, DEFAULT Unavailable Unavailable [...] Care Provider MD Niurka Oliveira Attending Provider Keara Bullard Unavailable Mckinley [...] Unavailable Ball, DO Mckinley Primary Care Provider MD Tano Tsai Attending Provider Niurka Oliveira Attending UnavailNiurka Nichols Admitting UnavailArnoldo Sutton Primary Care Unavailable Saleem, Mckinley Primary Care Unavailable Tano Tsai Attending Unavailable Tano Tsai Admitting Unavailable Mckinley Alfaro Primary Care Unavailable Tano Tsai Attending Unavailable Tano Tsai Admitting Unavailable Allergies Allergy Classification Reported Allergen(s) Allergy Type Date of Onset Reaction(s) Facility Adhesive Tape (1 source) Adhesive Tape Substance Allergy 10-30-19 24 Redness of Skin [facility] Dihydrofolate Reductase Inhibitors (antibiotic) (1 source) Trimethoprim Drug Allergy 10-30-19 24 Unknown Reaction [facility] Nitrofurantoin (1 source) Nitrofurantoin Drug Allergy 10-30-19 24 Comment:Macrob id [facility] Penicillins (antibiotic) (1 source) Penicillins Drug Allergy 10-30-19 24 Swelling of Lip/Tongue/Thr oat [facility] Sulfonamides (antibiotic) (1 source) Sulfamethoxazole Drug Allergy 10-30-19 24 Unknown Reaction [facility] tiZANidine (1 source) tiZANidine Drug Allergy 10-30-19 24 Insomnia [facility] (6 sources) Penicillin G Drug Allergy anaphylaxis [place] Other (1 source) Penicillin Drug Allergy 01-23-20 15 [facility] (6 sources) Adhesive Tape; Translations: [adhesive tape] Propensity to adverse reactions 02-24-20 17 Redness of Skin [facility] (7 sources) Penicillins; Translations: [Penicillins] Allergy to substance 02-24-20 17 Swelling of Lip/Tongue/Thr oat [facility] (6 sources) Adhesive Tape Drug allergy 04-19-20 16 Unknown [facility] Other (10 sources) Nitrofurantoin Drug Allergy 07-30-19 24 Comment:Macrob id [facility] (6 sources) Sulfamethoxazole / Trimethoprim Drug Allergy Unknown [facility] Other (6 sources) tiZANidine Comfort Pac *MUSCULOSKELETAL THERAPY AG Propensity to adverse reactions Comment:Could not sleep/rest. [facility] Other (6 sources) Substance with penicillin structure and antibacterial mechanism of action (substance) Drug allergy 04-19-20 16 Unknown [place] Other (5 sources) Sulfamethoxazole; Translations: [sulfamethoxazole] Drug Allergy 07-30-19 24 Unknown Reaction [facility] (5 sources) tiZANidine; Translations: [tizanidine] Drug Allergy 07-30-19 24 Insomnia [facility] (5 sources) Trimethoprim; Translations: [trimethoprim] Drug Allergy 07-30-19 Unknown Reaction [facility] (1 source) Nitrofurantoin Drug Allergy 07-30-19 [facility] Repository Medications Current Medications Medication Drug Class(es) Dates Sig (Normalized) Sig (Original) acetaminophen 325 mg / HYDROcodone bitartrate 5 mg oral tablet (20 sources) Opioid Agonist Start: 01-29-2024 take 1 tablet by mouth twice daily Hydrocodone-Aceta minophen Active 1 TAB PO Twice daily 60 30 January 29, 2024 start 01/28 Start: 07-26-2023 End: 01-29-2024 take 1 tablet by mouth twice daily Hydrocodone-Acetaminophen Discontinued 1 TAB PO Twice daily 60 December 10, 2023 January 29, 2024 10:20am p/u 12/09, start 12/10 Start: 06-13-2023 take 1 tablet by romulo [...] day Not-Taking/PRN biotin 1 mg oral tablet (20 sources) Start: 04-08-2018 End: 07-26-2023 take 1 mg by mouth once daily Biotin Active 1 MG PO Daily July 26, 2023 2:47pm Start: 02-23-2017 End: 08-24-2017 take 3 tablets by mouth once daily Biotin Discontinued 3 TAB PO Daily February 23, 2017 12:00am August 24, 2017 7:39am take 1 tablet by romulo th every twenty-four hours Biotin Maximum Strength 80949 MCG 1 tablet Orally Once a day PRN Active take 1 tablet by romulo th every twenty-four hours Biotin Maximum Strength 07878 MCG 1 tablet Orally Once a day PRN Active Biotin Maximum Strength 78180 MCG (7 sources) take 1 tablet by romulo th once daily as needed Biotin Maximum Strength 71261 MCG 1 tablet Orally Once a day PRN Active take 1 tablet by mouth once gayla y Biotin Maximum Strength 31637 MCG 1 tablet Orally Once a day Active dimenhyDRINATE 50 mg oral tablet (13 sources) Start: 07-26-2023 take 50 mg by mouth every six hours Dimenhydrinate Active 50 MG PO Every 6 hours July 26, 2023 1:00am take 1 tablet by mouth every six hours Dramamine 50 MG 1 tablet as needed Orally every 6 hrs Active folic acid 1 mg oral tablet (1 source) Start: 10-30-2023 take 1 mg by mouth once daily Folic Acid Active 1 MG PO Daily October 30, 2023 12:00am hydroCHLOROthiazide 25 mg oral tablet (9 sources) Thiazide Diuretic Start: 09-28-2022 take 25 mg by mouth once daily Hydrochlorothiazide Active 25 MG PO Daily September 28, 2022 12:00am meloxicam 15 mg oral tablet (16 sources) Nonsteroidal Anti-inflammator y Drug Start: 01-29-2024 take 15 mg by mouth once daily Meloxicam Active 15 MG PO Daily January 29, 2024 12:00am Start: 02-23-2017 End: 07-26-2023 take 15 mg by mouth once daily Meloxicam Discontinued 15 MG PO Daily February 23, 2017 12:00am July 26, 2023 2:57pm methotrexate 2.5 mg oral tablet (1 source) Folate Analog Metabolic Inhibitor Start: 10-30-2023 take 2.5 mg by mouth every week Methotrexate Sodium Active 2.5 MG PO every week October 30, 2023 12:00am omeprazole 40 mg delayed release oral [...] chloride 10 meq extended release oral capsule (7 sources) Start: 07-26-2023 take 10 mEq by mouth once daily Potassium Chloride Active 10 MEQ PO Daily July 26, 2023 1:00am Start: 05-17-2023 take 1 capsule by [facility] every twenty-four hours Potassium Chloride ER 10 MEQ 1 capsule with food Orally Once a day for 30 days Apr, Active predniSONE 20 mg oral tablet (1 source) Start: 06-13-2023 predniSONE 20 MG 1 tablet Orally bid w/ food x 5 days then qd w/ food x 5 days for 10 days May, Active triamcinolone acetonide 0.005 mg/mg topical ointment (17 sources) Corticosteroid Start: 07-26-2023 Triamcinolone Acetonide Active 1 APPLIC TOPICAL Twice daily July 26, 2023 1:00am Start: 03-08-2023 Triamcinolone Acetonide 0.5 % 1 application Externally Twice a day for 30 days Feb, Active Start: 11-01-2022 Kenalog-40 Oct, 40 mg 100 ml zoledronic acid 0.05 mg/ml injection (8 sources) Bisphosphonate Start: 07-26-2023 Zoledronic Oaxu-Mixvraik-Ifqql (Reclast) 5 mg/100 mL piggyback Active EACH IV As Directed July 26, 2023 1:00am Start: 05-03-2023 Reclast 5 MG/1 00ML as directed Intravenous Apr, Active Completed/Discontinued Medications Medication Drug Class(es) Dates Sig (Normalized) Sig (Original) aspirin 81 mg delayed release oral tablet (6 sources) Platelet Aggregation Inhibitor, Nonsteroidal Anti-inflammatory Drug Start: 04-02-2018 End: 09-28-2022 take 1 tablet by mouth once daily Aspirin (Aspir-81) 81 mg Tablet,Delayed Release (Dr/Ec) Discontinued 81 MG PO Daily April 02, 2018 1:00am September 28, 2022 7:46am Calcium (6 sources) Phosphate Binder, Calcium Start: 09-28-2022 End: 07-26-2023 take 500 mg by mouth once daily Calcium Discontinued 500 MG PO Daily September 28, 2022 12:00am July 26, 2023 2:56pm Start: 09-28-2022 take 500 mg by mouth once gayla y Calcium Active 500 MG PO Daily September 28, 2022 12:00am Calcium Carb-Magnesium Carb,Ox (Eliud-Mag) 200 mg calcium- 100 mg Tablet,Chewable (2 sources) Start: 02-23-2017 End: 08-24-2017 take 1 [...] 7:39am calcium carbonate 750 mg chewable tablet (12 sources) Start: 09-28-2022 End: 07-26-2023 take 1 [...] 2018 8:46am cholecalciferol 0.025 mg oral tablet (6 sources) Vitamin D Start: 09-28-2022 End: 07-26-2023 take 1 tablet by mouth once daily Cholecalciferol (Vitamin D3) (Vitamin D3) 25 mcg (1,000 unit) Tablet Discontinued 25 MCG PO Daily September 28, 2022 12:00am July 26, 2023 2:56pm hydroCHLOROthiazide 12.5 mg / olmesartan medoxomil 20 mg oral tablet (6 sources) Thiazide Diuretic, Angiotensin 2 Receptor Natacha Start: 04-02-2018 End: 10-21-2018 take 1 tablet by mouth once daily Olmesartan-Hydrochl orothiazide (Benicar Hct) 20-12.5 mg Tablet Discontinued 1 TAB PO Daily April 02, 2018 1:00am October 21, 2018 8:47am hydroCHLOROthiazide 12.5 mg / valsartan 80 mg oral tablet (12 sources) Thiazide Diuretic, Angiotensin 2 Receptor Natacha [...] / neomycin 3.5 mg/ml / polymyxin b 35786 unt/ml otic solution (12 sources) Aminoglycoside Antibacterial, Polymyxin-class Antibacterial, Corticosteroid Start: 03-09-2022 Fbleinpw-Anftdpewu-KU 3.5-25059-5 4 drops into affected ear Otic Three times a day for 7 day(s) Feb, Not-Taking/PRN inulin 2000 mg chewable tablet (6 sources) Start: 09-28-2022 End: 07-26-2023 take 1 tablet by mouth once daily Inulin (Fiber Gummies) 2 gram Tablet,Chewable Discontinued 1 GM PO Daily September 28, 2022 12:00am July 26, 2023 2:56pm Magnesium (6 sources) Start: 04-08-2018 End: 10-21-2018 take 250 mg by mouth once daily Magnesium Discontinued 250 MG PO Daily April 08, 2018 1:00am October 21, 2018 8:46am Meclizine (12 sources) Antiemetic Meclizine HCl DE N Not-Taking/PRN Meclizine HCl DE N Not-Taking Meclizine HCl DE N Active methylPREDNISolone 4 mg oral tablet (20 sources) Corticosteroid Start: 03-09-2022 methylPREDNISolone 4 MG as directed Orally daily for 6 days Oct, Not-Taking/PRN Multivitamin With Minerals (Hair,Skin And Nails) Tablet (6 sources) Start: 08-24-2017 End: 10-21-2018 take 1 tablet by mouth once daily Multivitamin With Minerals (Hair,Skin And Nails) Tablet Discontinued 1 TAB PO Daily August 24, 2017 12:00am October 21, 2018 8:46am [place] 9-Qsr-Qhk-Fish Oil (Fish Oil) 1,000 mg (120 mg-180 mg) Capsule (6 sources) Start: 02-23-2017 End: 08-24-2017 take 1 capsule by mouth once daily [place] 0-Kxh-Cie-Fish Oil (Fish Oil) 1,000 mg (120 mg-180 mg) Capsule Discontinued 1 CAP PO Daily February 23, 2017 12:00am August 24, 2017 7:39am [place] Red (6 sources) Start: 04-02-2018 End: 09-28-2022 take 1 tablet by mouth once daily [place] Red Discontinued 1 TAB PO Daily April [...] Not-Taking/PRN traMADol hydrochloride 50 mg oral tablet (11 sources) Opioid Agonist Start: 09-28-2022 End: 07-26-2023 take 50 mg by mouth once daily Tramadol Discontinued 50 MG PO Daily September 28, 2022 12:00am July 26, 2023 2:57pm Start: 07-04-2022 take 1 tablet by romulo th every twenty-four hours traMADol HCl 50 MG 1 tablet as needed Orally Once a day for 30 days 14 Jun, 2022 Active {20 (nirmatrelvir 150 MG Oral Tablet) [...] Complications of surgical procedures or medical care (6 sources) Non-healing surgical wound; Translations: [Other complications [...] Translations: [Vitamin D deficiency, unspecified] Chronic Osteoarthritis (19 sources) Osteoarthritis of joint of right shoulder region; Translations: [Primary osteoarthritis, right shoulder] Chronic Osteoporosis (20 sources) Senile osteoporosis; Translations: [Age-related osteoporosis without current pathological fracture] Onset: 3 Chronic Other aftercare (1 source) Drug therapy finding; Translations: [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] 10-30-2023 Episodic Other aftercare (1 source) 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; Translations: [Long-term (current) use of other medications] 01-29-2024 Episodic Other and unspecified benign neoplasm (8 sources) Benign neoplasm of stomach; Translations: [Polyp of stomach and duodenum] Episodic Other and unspecified benign neoplasm (2 sources) Polyp of stomach and duodenum; Translations: [Polyp of stomach and duodenum] Onset: 3 Episodic Other and unspecified benign neoplasm (1 source) Mass of digestive structure; Translations: [Polyp of stomach and duodenum] 12-21-2022 Episodic Other connective tissue disease (8 sources) Fibromyalgia; Translations: [Fibromyalgia] 10-28-2023 Episodic Other connective tissue disease (1 source) Unspecified disorder of synovium and tendon, unspecified site Episodic Other connective tissue disease (5 sources) Dupuytren's contracture; Translations: [Palmar fascial fibromatosis [Dupuytren]] 07-30-2023 Episodic Other connective tissue disease (5 sources) Triggering of digit; Translations: [Trigger finger, [...] hand] Onset: Episodic Other connective tissue disease (2 sources) Fibromyalgia; Translations: [Myalgia and myositis, unspecified] 10-30-2023 Episodic Other ear and sense organ disorders (1 source) Impacted cerumen, right ear Episodic Other gastrointestinal disorders (16 sources) Irritable bowel syndrome characterized by constipation; Translations: [Irritable bowel syndrome with constipation] 07-26-2023 Chronic Other gastrointestinal disorders (1 source) Irritable bowel syndrome with constipation Chronic Other gastrointestinal disorders (10 sources) Dysphagia; Translations: [Dysphagia, unspecified] 09-28-2022 Episodic Other gastrointestinal disorders (4 sources) Heartburn; Translations: [Heartburn] Episodic Other gastrointestinal disorders (7 sources) Constipation; Translations: [Constipation, unspecified] Episodic Other inflammatory condition of skin (4 sources) Psoriatic arthritis; Translations: [Arthropathic psoriasis, unspecified] 09-18-2023 Chronic Other inflammatory condition of skin (1 source) Arthropathic psoriasis, unspecified; Translations: [Psoriatic arthropathy] 01-29-2024 Chronic Other inflammatory condition of skin (1 [...] Onset: 4 Episodic Other non-traumatic joint disorders (3 sources) Hip pain; Translations: [Pain in left [...] Chronic Other nutritional; endocrine; and metabolic disorders (5 sources) Obesity caused by energy imbalance; Translations: [...] STATE] Onset: 3 Episodic Residual codes; unclassified (6 sources) Edema of left lower limb; Translations: [Localized edema] 08-24-2017 Episodic Rheumatoid arthritis and related disease (11 sources) Inflammatory polyarthropathy; Translations: [Inflammatory polyarthropathy] Chronic Spondylosis; intervertebral disc disorders; other back problems (20 sources) Lumbar spondylosis; Translations: [Spondylosis without myelopathy or radiculopathy, lumbar region] Chronic Sprains and strains (7 sources) Strain of muscle(s) and tendon(s) of the rotator cuff of right shoulder, subsequent encounter; Translations: [Strain of muscle, fascia and tendon of lower back, initial encounter] Episodic Superficial injury; contusion (5 sources) Contusion of right shoulder, initial encounter; Translations: [Contusion of left hip, initial encounter] Onset: Episodic Thyroid disorders (5 sources) Hypothyroidism; Translations: [Hypothyroidism, unspecified] 07-30-2023 Chronic [...] Test Name Value Interpretation Reference Range Facility Basophils Auto (Bld) [#/Vol] on 12-31-2023 Basophils (Bld) [#/Vol] 0.0 10 3/uL 0.0-0.1 [facility] Basophils/100 WBC Auto (Bld) on 12-31-2023 Basophils/100 WBC (Bld) 0.5 % 0.2-2.0 [facility] Eosinophils/100 WBC Auto (Bl d)on 12-31-2023 Eosinophils/100 WBC (Bld) 4.9 % 0.9-7.0 [facility] Erythrocyte distribution wid th Auto (RBC) [Ratio]on 12-31-2023 Erythrocyte distribution width (RBC) [Ratio] 15.1 % High 11.0-15.0 [facility] Estimated glomerular filtrat ion rate (GFR) non- Americanon 12-31-2023 GFR/1.73 sq M.predicted among non-blacks MDRD (S/P/Bld) [Vol rate/Area] 55 mL/min/{1.73_m2} Low >=60 [facility] Globulin Calc (S) [Mass/Vol] on 12-31-2023 Globulin (S) [Mass/Vol] 3.2 g/dL [facility] Hematocrit Auto (Bld) [Volum e fraction]on 12-31-2023 Hematocrit (Bld) [Volume fraction] 35.0 % Low 36.0-48.0 [facility] Hemoglobin [Mass/volume] in Bloodon 12-31-2023 Hemoglobin (Bld) [Mass/Vol] 11.4 g/dL Low 12.0-16.0 [facility] Laboratory - Chemistry and C hemistry - challengeon 12-31-2023 Albumin [Mass/Vol] 3.3 g/dL Low 3.4-5.[address] [facility] ALP [Catalytic activity/Vol] 93 U/L 46-116 [facility] ALT [Catalytic activity/Vol] 31 U/L 14-59 [facility] AST [Catalytic activity/Vol] 20 U/L 15-37 [facility] Bilirubin [Mass/Vol] 0.6 mg/dL 0.2-1.0 [facility] Bilirubin.direct [Mass/Vol] 0.1 mg/dL 0.0-0.2 [facility] Creatinine [Mass/Vol] 1.00 mg/dL 0.55-1.02 [facility] GFR/1.73 sq M.predicted MDRD (S/P/Bld) [Vol rate/Area] mL/min/{1.73_m2} >=60 [facility] Protein [Mass/Vol] 6.5 g/dL 6.4-8.[address] [facility] Laboratory - Hematology and Cell countson 12-31-2023 ESR (Bld) [Velocity] 19 mm/h <=30 [facility] Immature granulocytes/100 WBC (Bld) 0.4 % 0.0-0.5 [facility] Leukocytes [#/volume] correc loan for nucleated erythrocytes in Blood by Automated counon 12-31-2023 WBC corrected for nucl RBC Auto (Bld) [#/Vol] 5.7 10 3/uL 4.0-11.0 [facility] Lymphocytes Auto (Bld) [#/Vo l]on 12-31-2023 Lymphocytes (Bld) [#/Vol] 1.4 10 3/uL 1.2-3.8 [facility] Lymphocytes/100 WBC Auto (Bl d)on 12-31-2023 Lymphocytes/100 WBC (Bld) 24.7 % 20.5-60.0 [facility] MCH Auto (RBC) [Entitic mass ]on 12-31-2023 MCH (RBC) [Entitic mass] 29.2 pg 26.7-34.0 [facility] MCHC Auto (RBC) [Mass/Vol]on 12-31-2023 MCHC (RBC) [Mass/Vol] 32.6 g/dL 29.9-35.[address] [facility] MCV Auto (RBC) [Entitic vol] on 12-31-2023 MCV (RBC) [Entitic vol] 89.5 fL 81.0-99.0 [facility] Monocytes Auto (Bld) [#/Vol] on 12-31-2023 Monocytes (Bld) [#/Vol] 0.6 10 3/uL 0.3-0.8 [facility] Monocytes/100 WBC Auto (Bld) on 12-31-2023 Monocytes/100 WBC (Bld) 10.4 % 1.7-12.0 [facility] Neutrophils Auto (Bld) [#/Vo l]on 12-31-2023 Neutrophils (Bld) [#/Vol] 3.4 10 3/uL 1.4-6.5 [facility] Neutrophils/100 WBC Auto (Bl d)on 12-31-2023 Neutrophils/100 WBC (Bld) 59.1 % 43.0-75.0 [facility] No Panel Informationon 12-30 Eosinophils # (Auto) 0.3 10 3/uL 0.0-0.[address] [facility] Immature Granulocyte # (Auto) 0.02 10 3/uL 0.00-0.03 [facility] Platelet mean volume Auto (B ld) [Entitic vol]on 12-31-2023 Platelet mean volume (Bld) [Entitic vol] 11.7 fL 9.5-13.5 [facility] Platelets Auto (Bld) [#/Vol] on 12-31-2023 Platelets (Bld) [#/Vol] 228 10 3/uL 150-450 [facility] RBC Auto (Bld) [#/Vol]on RBC (Bld) [#/Vol] 3.91 10 6/uL Low 4.20-5.40 [facility] Serum or plasma albumin/glob ulin mass ratioon 12-31-2023 Albumin/Globulin [Mass ratio] 1.0 {ratio} [facility] Basophils Auto (Bld) [#/Vol] on 12-03-2023 Basophils (Bld) [#/Vol] 0.0 10 3/uL 0.0-0.1 [facility] Basophils/100 WBC Auto (Bld) on 12-03-2023 Basophils/100 WBC (Bld) 0.4 % 0.2-2.0 [facility] Eosinophils/100 WBC Auto (Bl d)on 12-03-2023 Eosinophils/100 WBC (Bld) 3.2 % 0.9-7.0 [facility] Erythrocyte distribution wid th Auto (RBC) [Ratio]on 12-03-2023 Erythrocyte distribution width (RBC) [Ratio] 14.5 % 11.0-15.0 [facility] Estimated glomerular filtrat ion rate (GFR) non- Americanon 12-03-2023 GFR/1.73 sq M.predicted among non-blacks MDRD (S/P/Bld) [Vol rate/Area] 59 mL/min/{1.73_m2} Low >=60 [facility] Globulin Calc (S) [Mass/Vol] on 12-03-2023 Globulin (S) [Mass/Vol] 3.6 g/dL [facility] Hematocrit Auto (Bld) [Volum e fraction]on 12-03-2023 Hematocrit (Bld) [Volume fraction] 37.9 % 36.0-48.0 [facility] Hemoglobin [Mass/volume] in Bloodon 12-03-2023 Hemoglobin (Bld) [Mass/Vol] 12.3 g/dL 12.0-16.0 [facility] Laboratory - Chemistry and C hemistry - challengeon 12-03-2023 Albumin [Mass/Vol] 3.4 g/dL 3.4-5.[address] [facility] ALP [Catalytic activity/Vol] 95 U/L 46-116 [facility] ALT [Catalytic activity/Vol] 27 U/L 14-59 [facility] AST [Catalytic activity/Vol] 23 U/L 15-37 [facility] Bilirubin [Mass/Vol] 0.5 mg/dL 0.2-1.0 [facility] Bilirubin.direct [Mass/Vol] 0.1 mg/dL 0.0-0.2 [facility] Creatinine [Mass/Vol] 0.94 mg/dL 0.55-1.02 [facility] GFR/1.73 sq M.predicted MDRD (S/P/Bld) [Vol rate/Area] mL/min/{1.73_m2} >=60 [facility] Protein [Mass/Vol] 7.0 g/dL 6.4-8.[address] [facility] Laboratory - Hematology and Cell countson 12-03-2023 ESR (Bld) [Velocity] 22 mm/h <=30 [facility] Immature granulocytes/100 WBC (Bld) 0.1 % 0.0-0.5 [facility] Leukocytes [#/volume] correc loan for nucleated erythrocytes in Blood by Automated counon 12-03-2023 WBC corrected for nucl RBC Auto (Bld) [#/Vol] 7.5 10 3/uL 4.0-11.0 [facility] Lymphocytes Auto (Bld) [#/Vo l]on 12-03-2023 Lymphocytes (Bld) [#/Vol] 1.6 10 3/uL 1.2-3.8 [facility] Lymphocytes/100 WBC Auto (Bl d)on 12-03-2023 Lymphocytes/100 WBC (Bld) 21.7 % 20.5-60.0 [facility] MCH Auto (RBC) [Entitic mass ]on 12-03-2023 MCH (RBC) [Entitic mass] 28.9 pg 26.7-34.0 [facility] MCHC Auto (RBC) [Mass/Vol]on 12-03-2023 MCHC (RBC) [Mass/Vol] 32.5 g/dL 29.9-35.2 [facility] MCV Auto (RBC) [Entitic vol] on 12-03-2023 MCV (RBC) [Entitic vol] 89.0 fL 81.0-99.0 [facility] Monocytes Auto (Bld) [#/Vol] on 12-03-2023 Monocytes (Bld) [#/Vol] 0.7 10 3/uL 0.3-0.8 [facility] Monocytes/100 WBC Auto (Bld) on 12-03-2023 Monocytes/100 WBC (Bld) 9.1 % 1.7-12.0 [facility] Neutrophils Auto (Bld) [#/Vo l]on 12-03-2023 Neutrophils (Bld) [#/Vol] 4.9 10 3/uL 1.4-6.5 [facility] Neutrophils/100 WBC Auto (Bl d)on 12-03-2023 Neutrophils/100 WBC (Bld) 65.5 % 43.0-75.0 [facility] No Panel Informationon 12-02 Eosinophils # (Auto) 0.2 10 3/uL 0.0-0.7 [facility] Immature Granulocyte # (Auto) 0.01 10 3/uL 0.00-0.03 [facility] Platelet mean volume Auto (B ld) [Entitic vol]on 12-03-2023 Platelet mean volume (Bld) [Entitic vol] 11.6 fL 9.5-13.5 [facility] Platelets Auto (Bld) [#/Vol] on 12-03-2023 Platelets (Bld) [#/Vol] 250 10 3/uL 150-450 [facility] RBC Auto (Bld) [#/Vol]on RBC (Bld) [#/Vol] 4.26 10 6/uL 4.20-5.40 [facility] Serum or plasma albumin/glob ulin mass ratioon 12-03-2023 Albumin/Globulin [Mass ratio] 0.9 {ratio} [facility] Basophils Auto (Bld) [#/Vol] on 11-19-2023 Basophils (Bld) [#/Vol] 0.0 10 3/uL 0.0-0.1 [facility] Basophils/100 WBC Auto (Bld) on 11-19-2023 Basophils/100 WBC (Bld) 0.3 % 0.2-2.0 [facility] Eosinophils/100 WBC Auto (Bl d)on 11-19-2023 Eosinophils/100 WBC (Bld) 1.7 % 0.9-7.0 [facility] Erythrocyte distribution wid th Auto (RBC) [Ratio]on 11-19-2023 Erythrocyte distribution width (RBC) [Ratio] 14.0 % 11.0-15.0 [facility] Estimated glomerular filtrat ion rate (GFR) non- Americanon 11-19-2023 GFR/1.73 sq M.predicted among non-blacks MDRD (S/P/Bld) [Vol rate/Area] 59 mL/min/{1.73_m2} Low >=60 [facility] Globulin Calc (S) [Mass/Vol] on 11-19-2023 Globulin (S) [Mass/Vol] 3.8 g/dL [facility] Hematocrit Auto (Bld) [Volum e fraction]on 11-19-2023 Hematocrit (Bld) [Volume fraction] 38.3 % 36.0-48.0 [facility] Hemoglobin [Mass/volume] in Bloodon 11-19-2023 Hemoglobin (Bld) [Mass/Vol] 12.2 g/dL 12.0-16.0 [facility] Laboratory - Chemistry and C hemistry - challengeon 11-19-2023 Albumin [Mass/Vol] 3.7 g/dL 3.4-5.[address] [facility] ALP [Catalytic activity/Vol] 104 U/L 46-116 [facility] ALT [Catalytic activity/Vol] 24 U/L 14-59 [facility] AST [Catalytic activity/Vol] 17 U/L 15-37 [facility] Bilirubin [Mass/Vol] 0.4 mg/dL 0.2-1.0 [facility] Bilirubin.direct [Mass/Vol] 0.1 mg/dL 0.0-0.2 [facility] Creatinine [Mass/Vol] 0.94 mg/dL 0.55-1.02 [facility] GFR/1.73 sq M.predicted MDRD (S/P/Bld) [Vol rate/Area] mL/min/{1.73_m2} >=60 [facility] Protein [Mass/Vol] 7.5 g/dL 6.4-8.[address] [facility] Laboratory - Hematology and Cell countson 11-19-2023 ESR (Bld) [Velocity] 22 mm/h <=30 [facility] Immature granulocytes/100 WBC (Bld) 0.2 % 0.0-0.5 [facility] Leukocytes [#/volume] correc loan for nucleated erythrocytes in Blood by Automated counon 11-19-2023 WBC corrected for nucl RBC Auto (Bld) [#/Vol] 9.3 10 3/uL 4.0-11.0 [facility] Lymphocytes Auto (Bld) [#/Vo l]on 11-19-2023 Lymphocytes (Bld) [#/Vol] 1.4 10 3/uL 1.2-3.8 [facility] Lymphocytes/100 WBC Auto (Bl d)on 11-19-2023 Lymphocytes/100 WBC (Bld) 15.3 % Low 20.5-60.0 [facility] MCH Auto (RBC) [Entitic mass ]on 11-19-2023 MCH (RBC) [Entitic mass] 27.7 pg 26.7-34.0 [facility] MCHC Auto (RBC) [Mass/Vol]on 11-19-2023 MCHC (RBC) [Mass/Vol] 31.9 g/dL 29.9-35.2 [facility] MCV Auto (RBC) [Entitic vol] on 11-19-2023 MCV (RBC) [Entitic vol] 87.0 fL 81.0-99.0 [facility] Monocytes Auto (Bld) [#/Vol] on 11-19-2023 Monocytes (Bld) [#/Vol] 0.7 10 3/uL 0.3-0.8 [facility] Monocytes/100 WBC Auto (Bld) on 11-19-2023 Monocytes/100 WBC (Bld) 7.2 % 1.7-12.0 [facility] Neutrophils Auto (Bld) [#/Vo l]on 11-19-2023 Neutrophils (Bld) [#/Vol] 7.0 10 3/uL High 1.4-6.5 [facility] Neutrophils/100 WBC Auto (Bl d)on 11-19-2023 Neutrophils/100 WBC (Bld) 75.3 % High 43.0-75.0 [facility] No Panel Informationon 11-18 Eosinophils # (Auto) 0.2 10 3/uL 0.0-0.[address] [facility] Immature Granulocyte # (Auto) 0.02 10 3/uL 0.00-0.03 [facility] Platelet mean volume Auto (B ld) [Entitic vol]on 11-19-2023 Platelet mean volume (Bld) [Entitic vol] 11.4 fL 9.5-13.5 [facility] Platelets Auto (Bld) [#/Vol] on 11-19-2023 Platelets (Bld) [#/Vol] 296 10 3/uL 150-450 [facility] RBC Auto (Bld) [#/Vol]on RBC (Bld) [#/Vol] 4.40 10 6/uL 4.20-5.40 [facility] Serum or plasma albumin/glob ulin mass ratioon 11-19-2023 Albumin/Globulin [Mass ratio] 1.0 {ratio} [facility] XR chest 2V*on 09-13-2023 XR chest 2V* [facility] Main [address] [address] XRay Report Signed Patient: Lizzy Welsh MR#: [id number] : 1950 Acct:[id number] Age/Sex: 73 / F ADM Date: 09/13/23 Loc: ICXD Room: [facility] Attending Dr: Tano Tsai MD Copies to: [...] Anny Powell M.D.09/13/2023 5:13 PM Dictation Location: [place] [address] Transcribed By: [facility] 09/13/231712 Dictated By: Anny Powell II, MD 09/13/231711 Signed By: 09/13/231712 Normal [facility] XR hand BI 2Von 09-13-2023 XR hand BI 2V [facility] [place] [address] XRay Report Signed Patient: Lizzy Welsh MR#: [id number] : 1950 Acct:[id number] Age/Sex: 73 / F ADM Date: 09/13/23 Loc: XD Room: [facility] Attending Dr: Tano Tsai MD Copies to: [...] Anny Powell M.D.09/13/2023 5:21 PM Dictation Location: [place] [address] Transcribed By: [facility] 09/13/23 172 Dictated By: Anny Powell II, MD 09/13/23 1719 Signed By: 09/13/23 1721 Normal [facility] Alanine aminotransferase [En zymatic activity/volume] in Serum or PlasmaOrdered By: Tano Tsai on 09-12-2023 ALT [Catalytic activity/Vol] 18 U/L 7-52 [facility] Albumin [Mass/volume] in Ser um or Plasma by Bromocresol green (BCG) dye binding methoOrdered By: Tano Tsai on 09-12-2023 Albumin BCG dye [Mass/Vol] 4.2 g/dL 3.5-5.7 [facility] Alkaline phosphatase [Enzyma tic activity/volume] in Serum or PlasmaOrdered By: Tano Tsai on 09-12-2023 ALP [Catalytic activity/Vol] 82 U/L 34-104 [facility] Aspartate aminotransferase [ Enzymatic activity/volume] in Serum or PlasmaOrdered By: Tano Tsai on 09-12-2023 AST [Catalytic activity/Vol] 16 U/L 13-39 [facility] Basophils Auto (Bld) [#/Vol] Ordered By: Tano Tsai on 09-12-2023 Basophils (Bld) [#/Vol] 0.1 10*3/uL 0.0-0.2 [facility] Basophils/100 WBC Auto (Bld) Ordered By: Tano Tsai on 04-24-2024 Basophils/100 WBC (Bld) 0.7 % . [facility] Bilirubin.total [Mass/volume ] in Serum or PlasmaOrdered By: Tano Tsai on 09-12-2023 Bilirubin [Mass/Vol] 0.5 mg/dL 0.3-1.0 [facility] C reactive protein [Mass/vol ume] in Serum or PlasmaOrdered By: Tano Tsai on 09-12-2023 CRP [Mass/Vol] 2.1 mg/dL 0.0-0.5 [facility] C-Reactive Proteinon 024 C-Reactive Protein 2.1 mg/dL High 0.0-0.5 [facility] Comment on above: Result Comment: PERF ORMED BY: [place] [address] PATHOLOGIST DESIGN SALES CONSULTANT VICENTE MONTEZ M.D. Performed By: #### C MP, ESR, PTH, CBC, CRP #### [facility] [address] #### HBCAB, HBSAB, HBSAG, HCV RX PCR #### [facility] , Calcium [Mass/volume] in Ser um or PlasmaOrdered By: Tano Tsai on 09-12-2023 Calcium [Mass/Vol] 9.9 mg/dL 8.6-10.[address] [facility] Carbon dioxide, total [Moles /volume] in Serum or PlasmaOrdered By: Tano Tsai on 09-12-2023 CO2 [Moles/Vol] 31.5 mmol/L 21.0-31.0 [facility] Chloride [Moles/volume] in S concha or PlasmaOrdered By: Tano Tsai on 09-12-2023 Chloride [Moles/Vol] 105 mmol/L 98-107 [facility] Complete Blood Count Auto Di ffon 09-12-2023 Basophils (Bld) [#/Vol] 0.1 10*3/uL Normal 0.0-0.2 [facility] Comment on above: Performed By: #### C MP, ESR, PTH, CBC, CRP #### [facility] [address] [place] [address] #### HBCAB, HBSAB, HBSAG, HCV RX PCR #### [facility] , Basophils/100 WBC (Bld) 0.7 % Normal . [facility] Comment on above: Performed By: #### C MP, ESR, PTH, CBC, CRP #### [address] #### HBCAB, HBSAB, HBSAG, HCV RX PCR #### [facility] , Eosinophils (Bld) [#/Vol] 0.3 10*3/uL Normal 0.0-0.45 [facility] Comment on above: Performed By: #### C MP, ESR, PTH, CBC, CRP #### [address] #### HBCAB, HBSAB, HBSAG, HCV RX PCR #### [facility] , Eosinophils/100 WBC (Bld) 3.3 % Normal . [facility] Comment on above: Performed By: #### C MP, ESR, PTH, CBC, CRP #### [address] #### HBCAB, HBSAB, HBSAG, HCV RX PCR #### [facility] , Erythrocyte distribution width (RBC) [Ratio] 14.8 % Normal 11.9-15.3 [facility] Comment on above: Performed By: #### C MP, ESR, PTH, CBC, CRP #### [address] #### HBCAB, HBSAB, HBSAG, HCV RX PCR #### [facility] , Hematocrit (Bld) [Volume fraction] 40.9 % Normal 34.0-46.4 [facility] Comment on above: Performed By: #### C MP, ESR, PTH, CBC, CRP #### [place] [address] [place] #### HBCAB, HBSAB, HBSAG, HCV RX PCR #### [facility] , Hemoglobin (Bld) [Mass/Vol] 13.2 g/dL Normal 11.8-15.4 [facility] Comment on above: Performed By: #### C MP, ESR, PTH, CBC, CRP #### [address] #### HBCAB, HBSAB, HBSAG, HCV RX PCR #### [facility] , Lymphocytes (Bld) [#/Vol] 1.9 10*3/uL Normal 1.00-4.8 [facility] Comment on above: Performed By: #### C MP, ESR, PTH, CBC, CRP #### [address] #### HBCAB, HBSAB, HBSAG, HCV RX PCR #### [facility] , Lymphocytes/100 WBC (Bld) 21.1 % Normal . [facility] Comment on above: Performed By: #### C MP, ESR, PTH, CBC, CRP #### [address] #### HBCAB, HBSAB, HBSAG, HCV RX PCR #### [facility] , MCH (RBC) [Entitic mass] 27.6 pg Normal 24.7-34.3 [facility] Comment on above: Performed By: #### C MP, ESR, PTH, CBC, CRP #### [address] #### HBCAB, HBSAB, HBSAG, HCV RX PCR #### [facility] , MCV (RBC) [Entitic vol] 85.2 fL Normal 80-100 [facility] Comment on above: Performed By: #### C MP, ESR, PTH, CBC, CRP #### [address] #### HBCAB, HBSAB, HBSAG, HCV RX PCR #### [facility] , Mean Corpuscular HGB Conc 32.4 g/dL Normal 32.0-35.0 [facility] Comment on above: Performed By: #### C MP, ESR, PTH, CBC, CRP #### [address] #### HBCAB, HBSAB, HBSAG, HCV RX PCR #### [facility] , Monocytes (Bld) [#/Vol] 1.0 10*3/uL High 0.0-0.8 [facility] Comment on above: Performed By: #### C MP, ESR, PTH, CBC, CRP #### [address] #### HBCAB, HBSAB, HBSAG, HCV RX PCR #### [facility] , Monocytes/100 WBC (Bld) 10.5 % Normal . [facility] Comment on above: Performed By: #### C MP, ESR, PTH, CBC, CRP #### [address] #### HBCAB, HBSAB, HBSAG, HCV RX PCR #### [facility] , Neutrophils (Bld) [#/Vol] 5.9 10*3/uL Normal 1.8-7.7 [facility] Comment on above: Performed By: #### C MP, ESR, PTH, CBC, CRP #### [address] #### HBCAB, HBSAB, HBSAG, HCV RX PCR #### [facility] , Neutrophils/100 WBC (Bld) 64.4 % Normal . [facility] Comment on above: Performed By: #### C MP, ESR, PTH, CBC, CRP #### [address] #### HBCAB, HBSAB, HBSAG, HCV RX PCR #### [facility] , NRBC% 0.2 /100{WBC} Normal 0-0.5 [facility] Comment on above: Performed By: #### C MP, ESR, PTH, CBC, CRP #### [address] #### HBCAB, HBSAB, HBSAG, HCV RX PCR #### [facility] , Platelet mean volume (Bld) [Entitic vol] 10.3 fL Normal 6.3-10.7 [facility] Comment on above: Performed By: #### C MP, ESR, PTH, CBC, CRP #### [address] #### HBCAB, HBSAB, HBSAG, HCV RX PCR #### [facility] , Platelets (Bld) [#/Vol] 253 10*3/uL Normal 150-450 [facility] Comment on above: Performed By: #### C MP, ESR, PTH, CBC, CRP #### [address] #### HBCAB, HBSAB, HBSAG, HCV RX PCR #### [facility] , RBC (Bld) [#/Vol] 4.80 10*6/uL Normal 3.60-5.00 [facility] Comment on above: Performed By: #### C MP, ESR, PTH, CBC, CRP #### [address] #### HBCAB, HBSAB, HBSAG, HCV RX PCR #### [facility] , WBC (Bld) [#/Vol] 9.2 10*3/uL Normal 3.8-11.6 [facility] Comment on above: Performed By: #### C MP, ESR, PTH, CBC, CRP #### [address] #### HBCAB, HBSAB, HBSAG, HCV RX PCR #### [facility] , Comprehensive Metabolic Pane mayur 09-12-2023 Albumin [Mass/Vol] 4.2 g/dL Normal 3.5-5.7 [facility] Comment on above: Performed By: #### C MP, ESR, PTH, CBC, CRP #### [address] #### HBCAB, HBSAB, HBSAG, HCV RX PCR #### [facility] , Albumin/Globulin [Mass ratio] 1.4 {ratio} Normal [facility] Comment on above: Performed By: #### C MP, ESR, PTH, CBC, CRP #### [address] #### HBCAB, HBSAB, HBSAG, HCV RX PCR #### [facility] , ALP [Catalytic activity/Vol] 82 U/L Normal 34-104 [facility] Comment on above: Performed By: #### C MP, ESR, PTH, CBC, CRP #### [address] #### HBCAB, HBSAB, HBSAG, HCV RX PCR #### [facility] , ALT [Catalytic activity/Vol] 18 U/L Normal 7-52 [facility] Comment on above: Performed By: #### C MP, ESR, PTH, CBC, CRP #### [address] #### HBCAB, HBSAB, HBSAG, HCV RX PCR #### [facility] , Anion gap [Moles/Vol] 9.7 mmol/L Normal 6.0-15.0 [facility] Comment on above: Performed By: #### C MP, ESR, PTH, CBC, CRP #### [place] [address] [place] #### HBCAB, HBSAB, HBSAG, HCV RX PCR #### [facility] , AST [Catalytic activity/Vol] 16 U/L Normal 13-39 [facility] Comment on above: Performed By: #### C MP, ESR, PTH, CBC, CRP #### [place] [address] [place] #### HBCAB, HBSAB, HBSAG, HCV RX PCR #### [facility] , Bilirubin [Mass/Vol] 0.5 mg/dL Normal 0.3-1.0 [facility] Comment on above: Performed By: #### C MP, ESR, PTH, CBC, CRP #### [place] [address] [place] #### HBCAB, HBSAB, HBSAG, HCV RX PCR #### [facility] , Calcium [Mass/Vol] 9.9 mg/dL Normal 8.6-10.3 [facility] Comment on above: Performed By: #### C MP, ESR, PTH, CBC, CRP #### [address] #### HBCAB, HBSAB, HBSAG, HCV RX PCR #### [facility] , Chloride [Moles/Vol] 105 mmol/L Normal 98-107 [facility] Comment on above: Performed By: #### C MP, ESR, PTH, CBC, CRP #### [address] #### HBCAB, HBSAB, HBSAG, HCV RX PCR #### [facility] , CO2 [Moles/Vol] 31.5 mmol/L High 21.0-31.0 [facility] Comment on above: Performed By: #### C MP, ESR, PTH, CBC, CRP #### [place] [address] [place] #### HBCAB, HBSAB, HBSAG, HCV RX PCR #### [facility] , Creatinine [Mass/Vol] 0.74 mg/dL Normal 0.60-1.20 [facility] Comment on above: Performed By: #### C MP, ESR, PTH, CBC, CRP #### [place] [address] [place] #### HBCAB, HBSAB, HBSAG, HCV RX PCR #### [facility] , GFR/1.73 sq M.predicted MDRD (S/P/Bld) [Vol rate/Area] mL/min/{1.73_m2} Normal [facility] Comment on above: Performed By: #### C MP, ESR, PTH, CBC, CRP #### [address] #### HBCAB, HBSAB, HBSAG, HCV RX PCR #### [facility] , Globulin (S) [Mass/Vol] 2.9 g/dL Normal [facility] Comment on above: Performed By: #### C MP, ESR, PTH, CBC, CRP #### [address] #### HBCAB, HBSAB, HBSAG, HCV RX PCR #### [facility] , Glucose [Mass/Vol] 99 mg/dL Normal 70-100 [facility] Comment on above: Result Comment: [facility] Glucose Reference Range is dependent on time and content of last meal. Glucose of more than 200 mg/dL in a nonstressed, ambulatory subject supports the diagnosis of Diabetes Mellitus. ADA recommended reference range Performed By: #### C MP, ESR, PTH, CBC, CRP #### [address] #### HBCAB, HBSAB, HBSAG, HCV RX PCR #### [facility] , Potassium [Moles/Vol] 4.2 mmol/L Normal 3.5-5.1 [facility] Comment on above: Performed By: #### C MP, ESR, PTH, CBC, CRP #### [place] [address] [place] #### HBCAB, HBSAB, HBSAG, HCV RX PCR #### [facility] , Protein [Mass/Vol] 7.1 g/dL Normal 6.4-8.9 [facility] Comment on above: Performed By: #### C MP, ESR, PTH, CBC, CRP #### [place] [address] [place] #### HBCAB, HBSAB, HBSAG, HCV RX PCR #### [facility] , Sodium [Moles/Vol] 142 mmol/L Normal 136-145 [facility] Comment on above: Performed By: #### C MP, ESR, PTH, CBC, CRP #### [facility] [address] [place] [address] [place] #### HBCAB, HBSAB, HBSAG, HCV RX PCR #### [facility] , Urea nitrogen [Mass/Vol] 28 mg/dL High 7-25 [facility] Comment on above: Performed By: #### C MP, ESR, PTH, CBC, CRP #### [place] [address] [place] #### HBCAB, HBSAB, HBSAG, HCV RX PCR #### [facility] , Creatinine [Mass/volume] in Serum or PlasmaOrdered By: Tano Tsai on 09-12-2023 Creatinine [Mass/Vol] 0.74 mg/dL 0.60-1.20 [facility] Eosinophils Auto (Bld) [#/Vo l]Ordered By: Tano Tsai on 09-12-2023 Eosinophils (Bld) [#/Vol] 0.3 10*3/uL 0.0-0.45 [facility] Eosinophils/100 WBC Auto (Bl d)Ordered By: Tano Tsai on 09-12-2023 Eosinophils/100 WBC (Bld) 3.3 % . [facility] Erythrocyte Sedimentation Ra lilo 09-12-2023 ESR (Bld) [Velocity] 26 mm/h Normal 0-29 [facility] Comment on above: Result Comment: PERF ORMED BY: [place] [address] PATHOLOGIST DESIGN SALES CONSULTANT VICENTE MONTEZ M.D. Performed By: #### C MP, ESR, PTH, CBC, CRP #### [place] [address] [place] #### HBCAB, HBSAB, HBSAG, HCV RX PCR #### [facility] , Erythrocyte distribution wid th Auto (RBC) [Ratio]Ordered By: Taon Tsai on 09-12-2023 Erythrocyte distribution width (RBC) [Ratio] 14.8 % 11.9-15.3 [facility] Erythrocyte sedimentation ra te by Photometric methodOrdered By: Tano Tsai on 09-12-2023 ESR Photometric method (Bld) [Velocity] 26 mm/hr 0-29 [facility] Globulin Calc (S) [Mass/Vol] Ordered By: Tano Tsai on 09-12-2023 Globulin (S) [Mass/Vol] 2.9 g/dL [facility] Glucose [Mass/volume] in Ser um or PlasmaOrdered By: Tano Tsai on 09-12-2023 Glucose [Mass/Vol] 99 mg/dL 70-[address] [facility] Comment on above: ADA recommended refe rence rangeRandom Glucose Reference Range is dependent on time and content of last meal. Glucose of more than 200 mg/dL in a nonstressed, ambulatory subject supports the diagnosis of Diabetes Mellitus. Hematocrit Auto (Bld) [Volum e fraction]Ordered By: Tano Tsai on 09-12-2023 Hematocrit (Bld) [Volume fraction] 40.9 % 34.0-46.4 [facility] Hemoglobin [Mass/volume] in BloodOrdered By: Tano Tsai on 09-12-2023 Hemoglobin (Bld) [Mass/Vol] 13.2 g/dL 11.8-15.4 [facility] Hep C Ab wRfx to Qnt PCRon 0 09-12-2023 Hepatitis C Virus Antibody Non-Reactive Normal Non Reactive [facility] Comment on above: Performed By: #### C MP, ESR, PTH, CBC, CRP #### [facility] [address] #### HBCAB, HBSAB, HBSAG, HCV RX PCR #### [facility] , Interpretation Hepatitis C Normal . [facility] Comment on above: Result Comment: Not infected with HCV unless early or acute infection is suspected (which may be delayed in an immunocompromised individual), or other evidence exists to indicate HCV infection. Performed By: #### C MP, ESR, PTH, CBC, CRP #### [address] #### HBCAB, HBSAB, HBSAG, HCV RX PCR #### [facility] , Hepatitis B Core Antibodyon 09-12-2023 Hepatitis B Core Antibody Negative Normal Negative [facility] Comment on above: Result Comment: Perf ormed at: - [facility] [address] [id number] [employer] Tester: Natanael Banegas PhD, Phone: [phone] Performed By: #### C MP, ESR, PTH, CBC, CRP ####[address]#### HBCAB, HBSAB, HBSAG, HCV RX PCR ####[facility] , Hepatitis B Surface Antibody on 09-12-2023 Hepatitis B Surface Antibody Non-Reactive Normal . [facility] Comment on above: Result Comment: Non Reactive: Inconsistent with immunity, less than 10 mIU/mL Reactive: Consistent with immunity, greater than 9.9 mIU/mL Performed By: #### C MP, ESR, PTH, CBC, CRP #### [address] #### HBCAB, HBSAB, HBSAG, HCV RX PCR #### [facility] , Hepatitis B Surface Antigeno n 09-12-2023 HBsAg Screen Negative Normal Negative [facility] Comment on above: Result Comment: PERF ORMED BY: [place] [address] PATHOLOGIST DESIGN SALES CONSULTANT VICENTE MONTEZ M.D. Performed By: #### C MP, ESR, PTH, CBC, CRP ####[address]#### HBCAB, HBSAB, HBSAG, HCV RX PCR ####[facility] , Hepatitis B virus surface Ab [Presence] in SerumOrdered By: Tano Tsai on 09-12-2023 HBV surface Ab Ql (S) Non-Reactive . [facility] Comment on above: Non Reactive: Incons istent with immunity, less than 10 mIU/mL Reactive: Consistent with immunity, greater than 9.9 mIU/mL Hepatitis B virus surface Ag [Presence] in Serum or Plasma by ImmunoassayOrdered By: Tano Tsai on 09-12-2023 HBV surface Ag IA Ql Negative Negative [facility] Hepatitis C virus IgG Ab [Pr esence] in Serum or Plasma by ImmunoassayOrdered By: Tano Tsai on 09-12-2023 HCV IgG IA Ql Non-Reactive Non Reactive [facility] Leukocytes [#/volume] correc loan for nucleated erythrocytes in Blood by Automated counOrdered By: Tano Tsai on 09-12-2023 WBC corrected for nucl RBC Auto (Bld) [#/Vol] 9.2 10*3/uL 3.8-11.6 [facility] Lymphocytes Auto (Bld) [#/Vo l]Ordered By: Tano Tsai on 09-12-2023 Lymphocytes (Bld) [#/Vol] 1.9 10*3/uL 1.00-4.8 [facility] Lymphocytes/100 WBC Auto (Bl d)Ordered By: Tano Tsai on 09-12-2023 Lymphocytes/100 WBC (Bld) 21.1 % . [facility] MCH Auto (RBC) [Entitic mass ]Ordered By: Tano Tsai on 09-12-2023 MCH (RBC) [Entitic mass] 27.6 pg 24.7-34.3 [facility] MCHC Auto (RBC) [Mass/Vol]Or dered By: Tano Tsai on 09-12-2023 MCHC (RBC) [Mass/Vol] 32.4 g/dL 32.0-35.0 [facility] MCV Auto (RBC) [Entitic vol] Ordered By: Tano Tsai on 09-12-2023 MCV (RBC) [Entitic vol] 85.2 fL 80-100 [facility] Monocytes Auto (Bld) [#/Vol] Ordered By: Tano Tsai on 09-12-2023 Monocytes (Bld) [#/Vol] 1.0 10*3/uL 0.0-0.8 [facility] Monocytes/100 WBC Auto (Bld) Ordered By: Tano Tsai on 09-12-2023 Monocytes/100 WBC (Bld) 10.5 % . [facility] Neutrophils Auto (Bld) [#/Vo l]Ordered By: Tano Tsai on 09-12-2023 Neutrophils (Bld) [#/Vol] 5.9 10*3/uL 1.8-7.7 [facility] Neutrophils/100 WBC Auto (Bl d)Ordered By: Tano Tsai on 09-12-2023 Neutrophils/100 WBC (Bld) 64.4 % . [facility] No Panel InformationOrdered By: Tano Tsai on 09-12-2023 Estimated GFR (CKD-EPI) > 60.0 mL/Min [facility] Hepatitis B Core Total Antibody Negative Negative [facility] Comment on above: Performed at: [place] [id number] Director: Natanael Banegas PhD, Phone: [phone] Hepatitis C Interpretation See comment . [facility] Comment on above: Not infected with HC V unless early or acute infection issuspected (which may be delayed in an immunocompromisedindividual), or other evidence exists to indicate HCVinfection. Pharmacy Creatinine Clearance (Chem N/A [facility] Nucleated erythrocytes [Pres ence] in Blood by Automated countOrdered By: Tano Tsai on 09-12-2023 Nucleated RBC Auto Ql (Bld) 0.2 /100{WBC} 0-0.5 [facility] Parathyrin.intact [Mass/volu me] in Serum or PlasmaOrdered By: Tano Tsai on 09-12-2023 Parathyrin.intact [Mass/Vol] 34.2 pg/mL [facility] Parathyroid Hormone Intacton 09-12-2023 Parathyroid Hormone Intact 34.2 pg/mL Normal [facility] Comment on above: Result Comment: PERF ORMED BY: [facility] [address] [place] [address] PATHOLOGIST DESIGN SALES CONSULTANT VICENTE MONTEZ M.D. Performed By: #### C MP, ESR, PTH, CBC, CRP #### [address] #### HBCAB, HBSAB, HBSAG, HCV RX PCR #### [facility] , Platelet mean volume Auto (B ld) [Entitic vol]Ordered By: Tano Tsai on 09-12-2023 Platelet mean volume (Bld) [Entitic vol] 10.3 fL 6.3-10.7 [facility] Platelets Auto (Bld) [#/Vol] Ordered By: Tano Tsai on 09-12-2023 Platelets (Bld) [#/Vol] 253 10*3/uL 150-450 [facility] Potassium [Moles/volume] in Serum or PlasmaOrdered By: Tano Tsai on 09-12-2023 Potassium [Moles/Vol] 4.2 mmol/L 3.5-5.1 [facility] Protein [Mass/volume] in Ser um or PlasmaOrdered By: Tano Tsai on 09-12-2023 Protein [Mass/Vol] 7.1 g/dL 6.4-8.[address] [facility] RBC Auto (Bld) [#/Vol]Ordere d By: Tano Tsai on 09-12-2023 RBC (Bld) [#/Vol] 4.80 10*6/uL 3.60-5.00 [facility] Serum or plasma albumin/glob ulin mass ratioOrdered By: Tano Tsai on 09-12-2023 Albumin/Globulin [Mass ratio] 1.4 {ratio} [facility] Serum or plasma anion gap de terminationOrdered By: Tano Tsai on 09-12-2023 Anion gap [Moles/Vol] 9.7 mmol/L 6.0-15.0 [facility] Sodium [Moles/volume] in Ser um or PlasmaOrdered By: Tano Tsai on 09-12-2023 Sodium [Moles/Vol] 142 mmol/L 136-[address] [facility] Urea nitrogen [Mass/volume] in Serum or PlasmaOrdered By: Tano Tsai on 09-12-2023 Urea nitrogen [Mass/Vol] 28 mg/dL 7-25 [facility] WBC Auto (Bld) [#/Vol]Ordere d By: Tano Tsai on 09-12-2023 WBC (Bld) [#/Vol] 9.2 10*3/uL 3.8-11.[address] [facility] Basophils Auto (Bld) [#/Vol] on 08-03-2023 Basophils (Bld) [#/Vol] 0.1 10 3/uL 0.0-0.1 [facility] Basophils/100 WBC Auto (Bld) on 08-03-2023 Basophils/100 WBC (Bld) 0.6 % 0.2-2.0 [facility] Eosinophils/100 WBC Auto (Bl d)on 08-03-2023 Eosinophils/100 WBC (Bld) 3.2 % 0.9-7.0 [facility] Erythrocyte distribution wid th Auto (RBC) [Ratio]on 08-03-2023 Erythrocyte distribution width (RBC) [Ratio] 13.7 % 11.0-15.0 [facility] Estimated glomerular filtrat ion rate (GFR) non- Americanon 08-03-2023 GFR/1.73 sq M.predicted among non-blacks MDRD (S/P/Bld) [Vol rate/Area] mL/min/{1.73_m2} >=60 [facility] Globulin Calc (S) [Mass/Vol] on 08-03-2023 Globulin (S) [Mass/Vol] 3.8 g/dL [facility] Hematocrit Auto (Bld) [Volum e fraction]on 08-03-2023 Hematocrit (Bld) [Volume fraction] 38.0 % 36.0-48.0 [facility] Hemoglobin [Mass/volume] in Bloodon 08-03-2023 Hemoglobin (Bld) [Mass/Vol] 11.9 g/dL 12.0-16.0 [facility] Laboratory - Chemistry and C hemistry - challengeon 08-03-2023 Albumin [Mass/Vol] 3.4 g/dL 3.4-5.[address] [facility] ALP [Catalytic activity/Vol] 110 U/L 46-116 [facility] ALT [Catalytic activity/Vol] 21 U/L 14-59 [facility] AST [Catalytic activity/Vol] 18 U/L 15-37 [facility] Bilirubin [Mass/Vol] 0.3 mg/dL 0.2-1.0 [facility] Calcium [Mass/Vol] 8.8 mg/dL 8.5-10.[address] [facility] Chloride [Moles/Vol] 103 mmol/L 98-107 [facility] CO2 [Moles/Vol] 32.4 mmol/L 21.0-32.0 [facility] Cobalamin (Vitamin B12) [Mass/Vol] 803.0 pg/mL 193.0-986.0 [facility] Creatinine [Mass/Vol] 0.88 mg/dL 0.55-1.02 [facility] GFR/1.73 sq M.predicted MDRD (S/P/Bld) [Vol rate/Area] mL/min/{1.73_m2} >=60 [facility] Glucose [Mass/Vol] 150 mg/dL 74-[address] [facility] Potassium [Moles/Vol] 3.6 mmol/L 3.5-5.1 [facility] Protein [Mass/Vol] 7.2 g/dL 6.4-8.[address] [facility] Sodium [Moles/Vol] 143 mmol/L 136-[address] [facility] TSH Qn 1.282 m[IU]/L 0.358-3.740 [facility] Urea nitrogen [Mass/Vol] 26.0 mg/dL 7.0-18.0 [facility] Urea nitrogen/Creatinine [Mass ratio] 29.5 mg/mg [facility] Laboratory - Hematology and Cell countson 08-03-2023 Immature granulocytes/100 WBC (Bld) 0.3 % 0.0-0.5 [facility] Leukocytes [#/volume] correc loan for nucleated erythrocytes in Blood by Automated counon 08-03-2023 WBC corrected for nucl RBC Auto (Bld) [#/Vol] 8.8 10 3/uL 4.0-11.0 [facility] Lymphocytes Auto (Bld) [#/Vo l]on 08-03-2023 Lymphocytes (Bld) [#/Vol] 2.0 10 3/uL 1.2-3.8 [facility] Lymphocytes/100 WBC Auto (Bl d)on 08-03-2023 Lymphocytes/100 WBC (Bld) 22.7 % 20.5-60.0 [facility] MCH Auto (RBC) [Entitic mass ]on 08-03-2023 MCH (RBC) [Entitic mass] 27.5 pg 26.7-34.0 [facility] MCHC Auto (RBC) [Mass/Vol]on 08-03-2023 MCHC (RBC) [Mass/Vol] 31.3 g/dL 29.9-35.2 [facility] MCV Auto (RBC) [Entitic vol] on 08-03-2023 MCV (RBC) [Entitic vol] 87.8 fL 81.0-99.0 [facility] Monocytes Auto (Bld) [#/Vol] on 08-03-2023 Monocytes (Bld) [#/Vol] 0.9 10 3/uL 0.3-0.8 [facility] Monocytes/100 WBC Auto (Bld) on 08-03-2023 Monocytes/100 WBC (Bld) 9.9 % 1.7-12.0 [facility] Neutrophils Auto (Bld) [#/Vo l]on 08-03-2023 Neutrophils (Bld) [#/Vol] 5.6 10 3/uL 1.4-6.5 [facility] Neutrophils/100 WBC Auto (Bl d)on 08-03-2023 Neutrophils/100 WBC (Bld) 63.3 % 43.0-75.0 [facility] No Panel Informationon 08-02 C-Reactive Protein, Quantitative 1.82 mg/dL <=0.50 [facility] Eosinophils # (Auto) 0.3 10 3/uL 0.0-0.7 [facility] Immature Granulocyte # (Auto) 0.03 10 3/uL 0.00-0.03 [facility] Platelet mean volume Auto (B ld) [Entitic vol]on 08-03-2023 Platelet mean volume (Bld) [Entitic vol] 11.6 fL 9.5-13.5 [facility] Platelets Auto (Bld) [#/Vol] on 08-03-2023 Platelets (Bld) [#/Vol] 279 10 3/uL 150-450 [facility] RBC Auto (Bld) [#/Vol]on RBC (Bld) [#/Vol] 4.33 10 6/uL 4.20-5.40 [facility] Serum nuclear antibody titer on 08-03-2023 Nuclear Ab (S) [Titer] Negative . [facility] Comment on above: Negative <1:80 Borde rline 1:80 Positive >1:80ICAP nomenclature: AC-0For more information about Hep-2 cell patterns useANApatterns.org, the official website for theInternational Consensus on Antinuclear Antibody (ALFONZO)Patterns (ICAP).Performed at: [facility] [place], [place] [id number] Director: Natanael Banegas PhD, Phone: [phone] Serum or plasma albumin/glob ulin mass ratioon 08-03-2023 Albumin/Globulin [Mass ratio] 0.9 {ratio} [facility] Serum or plasma anion gap de terminationon 08-03-2023 Anion gap [Moles/Vol] 11.2 mmol/L [facility] Serum or plasma cyclic adeno sine monophosphate measurement (moles/volume)on 08-03-2023 Adenosine monophosphate.cyclic [Moles/Vol] 3 units 0-19 [facility] Comment on above: Negative <20 Weak po sitive 20 - 39 Moderate positive 40 - 59 Strong positive >59Performed at: [facility] [place], [place] [id number] Director: Natanael Banegas PhD, Phone: [phone] MR LUMBAR SPINE W AND WO CON [...] 12/20/2022 Submitting Physician: GUSTAVO LI MD Location: [facility] Other External # FINAL DIAGNOSIS A. DUODENAL POLYP, BIOPSY: -- SMALL INTESTINAL MUCOSA DEMONSTRATING DILATED LYMPHATIC VESSELS, NO DYSPLASIA IDENTIFIED. Note: Multiple deeper levels were examined. Electronically Signed Out By ANNY CHU MD/[facility] By the signature on this report, the individual or group listed as making the Final Interpretation/Diagnos is certifies that they have reviewed this case. Diagnostic interpretation performed at [facility] [id number] [place] [address]. [place] [id number] Clinical History: Physician Contact Number: [phone] Ischemic Time (A): 09:35 Fixative (A): Formalin [...] submitted in toto in one cassette. 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 Refer to note in patient chart for documentation of history and physical. Providers: Gustavo Li MD (Doctor), Sara Castillo, RN (Nurse), Maciel Ferrer, Auto Service Representative Referring: Gustavo Li MD Medicines: See the [...] biopsy result. 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 All rights reserved. The codes documented in this report are preliminary and upon sandblaster glass review may be revised to meet current compliance requirements. Attending Participation: I personally performed the entire procedure. MD Gustavo Enamorado MD 12/12/2022 9:49:01 AM This report has been signed electronically. Number of Addenda: 0 Note Initiated On: 12/12/2022 9:15 AM Total Procedure Duration Time 0 hours 21 minutes [address] [facility] Work Phone: Radiology Study observation (narrative) [facility] Work Phone: Endoscopic Ultrasound (Upper )Ordered By: Gustavo Li on 12-12-[address] [facility] Work Phone: No Panel Informationon 12-12 [employer] DO Work Phone: [email or web address]} [employer] DO Work Phone: [employer] DO Work Phone: Order Reconciliationon 12-12 [...] 750 mg daily Normal [facility] 12-12-2022 [facility] Surgical Pathology Department Name LIZZY WELSH Pathologist: ANNY CHU MD Date of Procedure: 12/12/2022 Date Received: 12/12/2022 Date Reported 12/20/2022 Submitting Physician: GUSTAVO LI MD Location: [facility] Other External # FINAL DIAGNOSIS A. DUODENAL POLYP, BIOPSY: -- SMALL INTESTINAL MUCOSA DEMONSTRATING DILATED LYMPHATIC VESSELS, NO DYSPLASIA IDENTIFIED. Note: Multiple deeper levels were examined. Electronically Signed Out By ANNY CHU MD/[facility] By the signature on this report, the individual or group listed as making the Final Interpretation/Diagnos is certifies that they have reviewed this case. Diagnostic interpretation performed at [place] [address] Clinical History: Physician Contact Number: [phone] Ischemic Time (A): 09:35 Fixative (A): Formalin [...] submitted in toto in one cassette. mrs/12/13/2022 [facility] Department of Pathology [address] [place] [address] Normal [facility] Comment on above: Performed By: #### U [facility] #### [facility] Surgical Pathology Department [address] [place] [address] Upper EUSon 12-12-2022 Upper EUS PATIENTNAME Patient Name: Lizzy Welsh EXAMDATE Procedure Date: 12/12/2022 9:15 AM PATIENTID PATIENTACCOUNTNUM PATIENTDOB Date of : 1950 ADMITTYPE Admit Type: Outpatient PATIENTROOM Site: [facility] ETHNICITY Ethnicity: Not or RACE Race: White PROVDR Attending MD: Gustavo Li MD, [id number] ENDOPROCEDURENAME Procedure: Upper EUS INDICATION Indications: Duodenal mucosal mass/polyp found on endoscopy, 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 Refer to note in patient chart for documentation of history and physical. PRIMARYPROVIDER Providers: Gustavo Li MD (Doctor), Sara Castillo RN (Nurse), Maciel Ferrer, Auto Service Representative EDREFPROVIDER Referring: Gustavo Li MD CURRENT_MEDS Medicines: [...] result. 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 All rights reserved. The codes documented in this report are preliminary and upon sandblaster glass review may be revised to meet current compliance requirements. ATTDRPART Attending Participation: I personally performed the entire procedure. SIGNATURENAME MD Gustavo Enamorado MD SIGNATUREDATE 12/12/2022 9:49:01 AM SIGNATUREONFILEIND This report has been signed electronically. NUMADDENDA Number of Addenda: 0 INITIATEDON Note Initiated On: 12/12/2022 9:15 AM TOTPROCTIME Total Procedure Duration Time 0 hours 21 minutes 39 seconds Normal [facility] Mauyr 09-28-2022 L -- ---- Specimen: [id number] Received: 09/28/22 Status: SALVADOR Enrique Num: [id number] Spec Type: Surgical Subm Dr: Niurka Oliveira MD Tissues: A Duodenum - Biopsy (DUODENUM BX) B Esophagus Biopsy (ESOPHABEAL BX) Procedures: HE/4, Gross/Micro L4/2 ---- Age/ Patient Sex Location Account Attending Physician ---- Lizzy Welsh 72/F [id number] Niurka Oliveira MD ---- SPEC NUM: [id number] RECD: 09/28/22 STATUS: SALVADOR ENRIQUE NUM: [id number] ELVA: 09/28/22- [facility] DR: Niurka Oliveira MD ENTERED: 09/28/[address] [facility] [address]: IDA TYPE: Surgical DEPT: S ORDERED: [...] one cassette labeled C1. ---- ---- Specimen: [id number] Received: 09/28/22102 Status: SALVADOR Enrique Num: [id number] Spec Type: Surgical Subm Dr: Niurka Oliveira MD Tissues: A Duodenum - Biopsy (DUODENUM BX) B Esophagus Biopsy (ESOPHABEAL BX) Procedures: Roxie GARCIA/Kashif L4/2 ---- Patient: Lizzy Welsh [id number] (Continued) ---- Signed (signature on file) Baylee Newton MD 09/29/[address] [facility] ZAK - TSHon 07-19-2022 TSH 1.271 uIU/mL Normal 0.358-3.740 [facility] Comment on above: Performed By: #### D ATTSH #### [facility] [address] [place] [address] [address] Gertrudis Peres TSH RANGE SEE BELOW Normal [facility] Comment on above: Result Comment: <0.3 4 UIU/ml HYPERTHYROID 0.34-5.60 UIU/ml EUTHYROID >5.60 UIU/ml HYPOTHYROID Performed By: #### D ATTSH #### [facility] [address] [address] [address] Gertrudis Peres ZAK - VITAMIN Don 07-19-2022 VIT D 25-OH 26.5 ng/mL Normal [facility] Comment on above: Performed By: #### D ATVITD #### [facility] [address] [place] [address] [address] Gertrudis Peres VIT D RANGES SEE BELOW Normal [facility] Comment on above: Result Comment: <20 ng/mL Vit D deficient 20 - <30 ng/mL Vit D insufficient 30 - 100 ng/mL Vit D sufficient >100 ng/mL Potential Toxicity Performed By: #### D ATVITD #### [facility] [address] [place] [address] Dr. Gertrudis Peres MG MAMM SCREEN 3D MANDY CADon 06-13-2022 MG MAMM SCREEN 3D MANDY CAD Patient: LIZZY WELSH Exam Date: 06/13/2022 : 1950 Gender:F Ordering : DR MCKINLEY ALFARO D.O. Admission #: [id number] Family : Order #: [id number] CLICK HERE TO VIEW EXAM RADIOLOGY REPORT [...] Treatments None Family Cancers None LOCATION: [facility] BREAST COMPOSITION: Scattered areas fibroglandular density. FINDINGS: [...] Rose M.D. on 06/14/2022 at 11:[address] [facility] XR DEXA BONE DENSITYon 06-13 XR [...] by: TIFFANY ROSE Date: 2022-06-13 14:[address] [facility] PAP ACOG PANEL 2: 30 to 65on 06-10-2022 . . Normal [facility] Comment on above: Performed By: #### 4 [id number] #### [facility] [address] [place] [address] Dr. Gertrudis Peres Age Gdln ACOG Testing Comment Normal [facility] Comment on above: Result Comment: <21 or >65 or no age provided Performed By: #### [id number] #### [facility] [address] [address] [address] Gertrudis Peres DIAGNOSIS: Comment Normal [facility] Comment on above: Result Comment: NEGA TIVE FOR INTRAEPITHELIAL LESION OR MALIGNANCY. Performed By: #### 4 [id number] #### [facility] [address] [address] [address] Gertrudis Peres Methodology: Comment Normal [facility] Comment on above: Result Comment: This liquid based ThinPrep(R) pap test was screened with the use of an image guided system. Performed By: #### 4 [id number] #### [facility] [address] [address] [address] Gertrudis Peres Note: Comment Normal [facility] Comment on above: Result Comment: The Pap smear is a screening test designed to aid in the detection of premalignant and malignant conditions of the uterine cervix. It is not a diagnostic procedure and should not be used as the sole means of detecting cervical cancer. Both false-positive and false-negative reports do occur. . Performed By: #### 4 [id number] #### [facility] [address] [place] [address] Dr. Gertrudis Peres Performed by: Comment Normal [facility] Comment on above: Result Comment: [employer] Coordinator (ASCP) Performed By: #### 4 [id number] #### [facility] [address] [place] [address] Dr. Gertrudis Peres Specimen adequacy: Comment Normal [facility] Comment on above: Result Comment: Sati sfactory for evaluation. Endocervical and/or squamous metaplastic cells (endocervical component) are present. Performed By: #### 4 [id number] #### [facility] [address] [place] [address] Dr. Gertrudis Peres XR HIPS MANDY 5V [...] NICANOR NAQVI Date: 2022-05-03 16:34 Normal [facility] CBC AUTO DIFFon 03-31-2022 BASO # 0.0 103/ul Normal 0.0-0.[address] [facility] Comment on above: Performed By: #### C BC #### [facility] [address] [place] [address] Dr. Gertrudis Peres Basophils/100 WBC (Bld) 0.5 % Normal 0.2-2.0 [facility] Comment on above: Performed By: #### C BC #### [facility] [address] [place] [address] Dr. Gertrudis Peres EO # 0.3 103/ul Normal 0.0-0.[address] [facility] Comment on above: Performed By: #### C BC #### [facility] [address] [place] [address] Dr. Gertrudis Peres Eosinophils/100 WBC (Bld) 4.3 % Normal 0.9-7.[address] [facility] Comment on above: Performed By: #### C BC #### [facility] [address] [place] [address] Dr. Gertrudis Peres Erythrocyte distribution width (RBC) [Ratio] 13.2 % Normal 11.0-15.[address] [facility] Comment on above: Performed By: #### C BC #### [facility] [address] [place] [address] Dr. Gertrudis Peres Hematocrit (Bld) [Volume fraction] 37.9 % Normal 36.0-48.[address] [facility] Comment on above: Performed By: #### C BC #### [facility] [address] [place] [address] Dr. Gertrudis Peres Hemoglobin (Bld) [Mass/Vol] 12.7 g/dL Normal 12.0-16.0 [facility] Comment on above: Performed By: #### C BC #### [facility] [address] [place] [address] Dr. Gertrudis Peres IG # 0.02 10e3/ul Normal 0.00-0.[address] [facility] Comment on above: Performed By: #### C BC #### [facility] [address] [place] [address] Dr. Gertrudis Peres IG % 0.3 % Normal 0.0-0.[address] [facility] Comment on above: Performed By: #### C BC #### [facility] [address] [place] [address] Dr. Gertrudis Peres LYMPH # 1.7 103/ul Normal 1.2-3.8 [facility] Comment on above: Performed By: #### C BC #### [facility] [address] [place] [address] Dr. Gertrudis Peres Lymphocytes/100 WBC (Bld) 26.4 % Normal 20.5-60.0 [facility] Comment on above: Performed By: #### C BC #### [facility] [address] [place] [address] Dr. Gertrudis Peres MANUAL DIFF REQ NO Normal [facility] Comment on above: Performed By: #### C BC #### [facility] [address] [place] [address] Dr. Gertrudis Peres MCH (RBC) [Entitic mass] 28.6 pg Normal 26.7-34.[address] [facility] Comment on above: Performed By: #### C BC #### [facility] [address] [place] [address] Dr. Gertrudis Peres MCHC (RBC) [Mass/Vol] 33.5 g/dL Normal 29.9-35.[address] [facility] Comment on above: Performed By: #### C BC #### [facility] [address] [place] [address] Dr. Gertrudis Peres MCV (RBC) [Entitic vol] 85.4 fL Normal 81.0-99.0 [facility] Comment on above: Performed By: #### C BC #### [facility] [address] [place] [address] Dr. Gertrudis Peres MONO # 0.5 103/ul Normal 0.3-0.[address] [facility] Comment on above: Performed By: #### C BC #### [facility] [address] [place] [address] Dr. Gertrudis Peres Monocytes/100 WBC (Bld) 8.1 % Normal 1.7-12.0 [facility] Comment on above: Performed By: #### C BC #### [facility] [address] [place] [address] Dr. Gertrudis Peres NEUT # 3.9 103/ul Normal 1.4-6.[address] [facility] Comment on above: Performed By: #### C BC #### [facility] [address] [place] [address] Dr. Gertrudis Peres Neutrophils/100 WBC (Bld) 60.4 % Normal 43.0-75.[address] [facility] Comment on above: Performed By: #### C BC #### [facility] [address] [place] [address] Dr. Gertrudis Peres Platelet mean volume (Bld) [Entitic vol] 11.3 fL Normal 9.5-13.[address] [facility] Comment on above: Performed By: #### C BC #### [facility] [address] [place] [address] Dr. Gertrudis Peres PLT 215 103/ul Normal 150-[address] [facility] Comment on above: Performed By: #### C BC #### [facility] [address] [place] [address] Dr. Gertrudis Peres RBC 4.44 106/ul Normal 4.20-5.[address] [facility] Comment on above: Performed By: #### C BC #### [facility] [address] [place] [address] Dr. Gertrudis Peres WBC 6.5 103/ul Normal 4.0-11.[address] [facility] Comment on above: Performed By: #### C BC #### [facility] [address] [place] [address] Dr. Gertrudis Peres PROF 14(COMP METB)on 022 Albumin [Mass/Vol] 3.7 g/dL Normal 3.4-5.0 [facility] Comment on above: Performed By: #### C MP #### [facility] [address] [place] [address] Dr. Gertrudis Peres Albumin/Globulin [Mass ratio] 1.1 {ratio} Normal [facility] Comment on above: Performed By: #### C MP #### [facility] [address] [place] [address] Dr. Gertrudis Peres ALP [Catalytic activity/Vol] 112 U/L Normal 46-[address] [facility] Comment on above: Performed By: #### C MP #### [facility] [address] [place] [address] Dr. Gertrudis Peres ALT [Catalytic activity/Vol] 23 U/L Normal 14-[address] [facility] Comment on above: Performed By: #### C MP #### [facility] [address] [place] [address] Dr. Gertrudis Peres Anion gap [Moles/Vol] 7.1 mmol/L Normal [facility] Comment on above: Performed By: #### C MP #### [facility] [address] [place] [address] Dr. Gertrudis Peres AST [Catalytic activity/Vol] 18 U/L Normal 15-[address] [facility] Comment on above: Performed By: #### C MP #### [facility] [address] [place] [address] Dr. Gertrudis Peres Bilirubin [Mass/Vol] 0.4 mg/dL Normal 0.2-1.[address] [facility] Comment on above: Performed By: #### C MP #### [facility] [address] [address] [address] Gertrudis Peres Calcium [Mass/Vol] 8.6 mg/dL Normal 8.5-10.1 [facility] Comment on above: Performed By: #### C MP #### [facility] [address] [address] [address] Gertrudis Peres Chloride [Moles/Vol] 105 mmol/L Normal 98-[address] [facility] Comment on above: Performed By: #### C MP #### [facility] [address] [address] [address] Gertrudis Peres CO2 [Moles/Vol] 34.0 mmol/L Critically high 21.0-32.[address] [facility] Comment on above: Performed By: #### C MP #### [facility] [address] [address] [address] Gertrudis Peres Creatinine [Mass/Vol] 0.80 mg/dL Normal 0.55-1.[address] [facility] Comment on above: Performed By: #### C MP #### [facility] [address] [address] [address] Gertrudis Peres EGFR-AF ETHIOPIAN >60 Normal >=60 [facility] Comment on above: Performed By: #### C MP #### [facility] [address] [address] [address] Gertrudis Peres EGFR-NON AF ETHIOPIAN >60 Normal >=[address] [facility] Comment on above: Performed By: #### C MP #### [facility] [address] [address] [address] Gertrudis Peres Globulin (S) [Mass/Vol] 3.5 g/dL Normal [facility] Comment on above: Performed By: #### C MP #### [facility] [address] [address] [address] Gertrudis Peres Glucose [Mass/Vol] 119 mg/dL Critically high 74-106 [facility] Comment on above: Performed By: #### C MP #### [facility] [address] [address] [address] Gertrudis Peres Potassium [Moles/Vol] 3.1 mmol/L Critically low 3.5-5.[address] [facility] Comment on above: Performed By: #### C MP #### [facility] [address] [address] [address] Gertrudis Peres Protein [Mass/Vol] 7.2 g/dL Normal 6.4-8.2 [facility] Comment on above: Performed By: #### C MP #### [facility] [address] [address] [address] Gertrudis Peres Sodium [Moles/Vol] 143 mmol/L Normal 136-145 [facility] Comment on above: Performed By: #### C MP #### [facility] [address] [address] [address] Gertrudis Peres Urea nitrogen [Mass/Vol] 24.0 mg/dL Critically high 7.0-18.[address] [facility] Comment on above: Performed By: #### C MP #### [facility] [address] [address] [address] Gertrudis Peres Urea nitrogen/Creatinine [Mass ratio] 30.0 mg/mg Normal [facility] Comment on above: Performed By: #### C MP #### [facility] [address] [address] [address] Gertrudis Peres US SINGLE QUAD UMBILon [...] TIFFANY ROSE Date: 2021-09-29 14:52 Normal [facility] CBC with Diffon 05-17-2019 Abs. Basophil 0.05 k/uL Normal 0.00-0.20 [facility] Comment on above: Performed By: #### C MPX, CDP #### [facility] [address] [place], [place] [id number] Construction Materials Tester: Peter Conklin MD Abs.Imm.Granulocyte <0.03 Normal 0.00-0.30 [facility] Comment on above: Performed By: #### C MPX, CDP #### [facility] [address] [place], [place] [address] [employer] Tester: Peter Conklin MD Abs.Neutrophil (Seg) 4.64 k/uL Normal 1.50-8.10 [facility] Comment on above: Performed By: #### C MPX, CDP #### [facility] [address] [place], [facility]83 [employer] Tester: Peter Conklin MD Basophils/100 WBC (Bld) 1 % Normal 0-2 [facility] Comment on above: Performed By: #### C MPX, CDP #### [facility] [address] [place] [address] [employer] Tester: Peter Conklin MD Eosinophils #/vol (Bld) 0.35 10*3/uL Normal 0.00-0.44 [facility] Comment on above: Performed By: #### C MPX, CDP #### [facility] [address] [place], [place] [id number] [employer] Tester: Peter Conklin MD Eosinophils/100 WBC (Bld) 4 % Normal 1-4 [facility] Comment on above: Performed By: #### C MPX, CDP #### [facility] [address] [place], [place] [id number] [employer] Tester: Peter Conklin MD Erythrocyte distribution width Ratio (RBC) 13.8 % Normal 11.8-14.4 [facility] Comment on above: Performed By: #### C MPX, CDP #### [facility] [address] [place], [facility]83 [employer] Tester: Peter Conklin MD Hematocrit Volume Fraction (Bld) 44.8 % Normal 36.3-47.1 [facility] Comment on above: Performed By: #### C MPX, CDP #### [facility] [address] [place], [facility]83 [employer] Tester: Peter Conklin MD Hemoglobin mass conc (Bld) 14.1 g/dL Normal 11.9-15.1 [facility] Comment on above: Performed By: #### C MPX, CDP #### [address] [place], [facility]83 [employer] Tester: Peter Conklin MD Immature granulocytes #/vol (Bld) 0 % Normal 0 [facility] Comment on above: Performed By: #### C MPX, CDP #### [address] [place], [facility]83 [employer] Tester: Peter Conklin MD Lymphocytes #/vol (Bld) 2.23 10*3/uL Normal 1.10-3.70 [facility] Comment on above: Performed By: #### C MPX, CDP #### [address] [place], [facility]83 [employer] Tester: Peter Conklin MD Lymphocytes/100 WBC (Bld) 27 % Normal 24-43 [facility] Comment on above: Performed By: #### C MPX, CDP #### [facility] [address] [place], [facility]83 [employer] Tester: Peter Conklin MD MCH Entitic mass (RBC) 27.8 pg Normal 25.2-33.5 [facility] Comment on above: Performed By: #### C MPX, CDP #### [facility] [address] [place] [id number] [employer] Tester: Peter Conklin MD MCHC mass conc (RBC) 31.5 g/dL Normal 28.4-34.8 [facility] Comment on above: Performed By: #### C MPX, CDP #### [facility] [address] [place], [place] [id number] [employer] Tester: Peter Conklin MD MCV Entitic volume (RBC) 88.4 fL Normal 82.6-102.9 [facility] Comment on above: Performed By: #### C MPX, CDP #### [facility] [address] [place], [place] [id number] [employer] Tester: Peter Conklin MD Monocytes #/vol (Bld) 0.84 10*3/uL Normal 0.10-1.20 [facility] Comment on above: Performed By: #### C MPX, CDP #### [facility] [address] [place], [place] 108[address]83 [employer] Tester: Peter Conklin MD Monocytes/100 WBC (Bld) 10 % Normal 3-12 [facility] Comment on above: Performed By: #### C MPX, CDP #### [facility] [address] [place], [place] [id number] [employer] Tester: Peter Conklin MD Neutrophil (Seg) 58 % Normal 36-65 [facility] Comment on above: Performed By: #### C MPX, CDP #### [facility] [address] [place], [place] [id number] [employer] Tester: Peter Conklin MD NRBC Automated 0.0 per 100 WBC Normal 0.0 [facility] Comment on above: Performed By: #### C MPX, CDP #### [facility] [address] [place] [address] [employer] Tester: Peter Conklin MD Platelet mean volume Entitic volume (Bld) 11.7 fL Normal 8.1-13.5 [facility] Comment on above: Performed By: #### C MPX, CDP #### [facility] [address] [place] [address] [employer] Tester: Peter Conklin MD Platelets #/vol (Bld) 269 10*3/uL Normal 138-453 [facility] Comment on above: Performed By: #### C MPX, CDP #### [facility] [address] [place], [place] [id number] [employer] Tester: Peter Conklin MD RBC #/vol (Bld) 5.07 10*6/uL Normal 3.95-5.11 [facility] Comment on above: Performed By: #### C MPX, CDP #### [facility] [address] [place] [address] [employer] Tester: Peter Conklin MD WBC #/vol (Bld) 8.1 10*3/uL Normal 3.5-11.3 [facility] Comment on above: Performed By: #### C MPX, CDP #### [facility] [address] [place], [place] [address]83 [employer] Tester: Peter Conklin MD Auto Diff Performed NOT REPORTED Normal [facility] Comment on above: Performed By: #### C MPX, CDP #### [facility] [address] [place] [address] [employer] Tester: Peter Conklin MD Platelets #/vol (Bld) NOT REPORTED Normal [facility] Comment on above: Performed By: #### C MPX, CDP #### [facility] [address] [place], [place] [id number] [employer] Tester: Peter Conklin MD RBC morphology finding Nom (Bld) NOT REPORTED Normal [facility] Comment on above: Performed By: #### C MPX, CDP #### [facility] [address] [place] [address] [employer] Tester: Peter Conklin MD WBC Morphology NOT REPORTED Normal [facility] Comment on above: Performed By: #### C MPX, CDP #### [facility] [address] [place] [address] [employer] Materials Tester: Peter Conklin MD CT ABDOMEN PELVIS WO [...] MD 10/04/18 Final result Normal [facility] Comp Metabolic Pr/rfx MGon 0 10-04-2018 (cont.) Normal [facility] Comment on above: Result Comment: Aver age GFR for 60-69 years old: 85 mL/min/1.73sq m Chronic Kidney Disease: <60 mL/min/1.73sq m Kidney failure: <15 mL/min/1.73sq m eGFR calculated using average adult body mass. Additional eGFR calculator available at: http://[email or web address]/multiple_crcl_2012.htm Performed By: #### C MPX, CDP #### [facility] [address] [place], [place] [id number] [employer] Tester: Peter Conklin MD Albumin mass conc 4.3 g/dL Normal 3.5-5.2 [facility] Comment on above: Performed By: #### C MPX, CDP #### [facility] [address] [place] [address] [employer] Tester: Peter Conklin MD Albumin/Globulin mass ratio 1.2 {ratio} Normal 1.0-2.5 [facility] Comment on above: Performed By: #### C MPX, CDP #### [facility] [address] [place] [address] [employer] Tester: Peter Conklin MD Alkaline Phos 184 U/L High 35-104 [facility] Comment on above: Performed By: #### C MPX, CDP #### [facility] [address] [place], [place] 4079483 [employer] Tester: Peter Conklin MD ALT enzyme act/vol 16 U/L Normal 5-33 [facility] Comment on above: Performed By: #### C MPX, CDP #### [facility] [address] [place] [address] [employer] Tester: Peter Conklin MD Anion gap molar conc 13 mmol/L Normal 9-17 [facility] Comment on above: Performed By: #### C MPX, CDP #### [facility] [address] [place] [address] [employer] Tester: Peter Conklin MD AST enzyme act/vol 20 U/L Normal <32 [facility] Comment on above: Performed By: #### C MPX, CDP #### [facility] [address] [place], [place] 9708483 [employer] Tester: Peter Conklin MD Bilirubin Ql (U) 0.36 mg/dL Normal 0.3-1.2 [facility] Comment on above: Performed By: #### C MPX, CDP #### [facility] [address] [place], [place] [address]83 [employer] Tester: Peter Conklin MD BUN/CRE Ratio 53 High 9-20 [facility] Comment on above: Performed By: #### C MPX, CDP #### [facility] [address] [place], [place] 104[address]83 [employer] Tester: Peter Conklin MD Calcium mass conc 9.2 mg/dL Normal 8.6-10.4 [facility] Comment on above: Performed By: #### C MPX, CDP #### [facility] [address] [place], [place] [address]83 [employer] Tester: Peter Conklin MD Chloride molar conc 103 mmol/L Normal 98-107 [facility] Comment on above: Performed By: #### C MPX, CDP #### [facility] [address] [place], [place] 490[address]83 [employer] Tester: Peter Conklin MD CO2 molar conc 25 mmol/L Normal 20-31 [facility] Comment on above: Performed By: #### C MPX, CDP #### [facility] [address] [place], [place] [address]84[address]83 [employer] Tester: Peter Conklin MD Creatinine mass conc 0.60 mg/dL Normal 0.50-0.90 [facility] Comment on above: Performed By: #### C MPX, CDP #### [facility] [address] [place], [place] [address]27083 [employer] Tester: Peter Conklin MD GFR, Amer >60 Normal >60 [facility] Comment on above: Performed By: #### C MPX, CDP #### [facility] [address] [place], [place] [address]83 [employer] Tester: Peter Conklin MD GFR,non Amer >60 Normal >60 [facility] Comment on above: Performed By: #### C MPX, CDP #### [facility] [address] [place], [place] 8435383 [employer] Tester: Peter Conklin MD Glucose mass conc 123 mg/dL High 70-99 [facility] Comment on above: Performed By: #### C MPX, CDP #### [facility] [address] [place], [place] 4665[address] [employer] Tester: Peter Conklin MD Potassium molar conc 4.0 mmol/L Normal 3.7-5.3 [facility] Comment on above: Performed By: #### C MPX, CDP #### [facility] [address] [place], [place] [address]83 [employer] Tester: Peter Conklin MD Protein mass conc 7.8 g/dL Normal 6.4-8.3 [facility] Comment on above: Performed By: #### C MPX, CDP #### [facility] [address] [place], [place] [address]83 [employer] Tester: Peter Conklin MD Sodium molar conc 141 mmol/L Normal 135-144 [facility] Comment on above: Performed By: #### C MPX, CDP #### [facility] [address] [place], [place] 209[address]83 [employer] Tester: Peter Conklin MD Staging: Normal [facility] Comment on above: Result Comment: Stag e 1: Some kidney damage normal GFR Stage 2: Mild kidney damage GFR 60-89 Stage 3: Moderate kidney damage GFR 30-59 Stage 4: Severe kidney damage GFR 15-29 Stage 5: Severe kidney damage GFR <15 ESRD - chronic treatment by dialysis or transplant Performed By: #### C MPX, CDP #### [facility] [address] [place] [address] [employer] Tester: Peter Conklin MD Urea nitrogen mass conc 32 mg/dL High 8-23 [facility] Comment on above: Performed By: #### C MPX, CDP #### [facility] [address] [place], [place] [address]44[address]83 [employer] Tester: Peter Conklin MD Urinalysis, Routineon 2018 Acetoacetic Acid,Ur Negative Normal NEG [facility] Comment on above: Performed By: #### U A, UMICAO #### [address] [place], [place] [address]803183 [employer] Tester: Peter Conklin MD Bilirubin, SemiQt,Ur Negative Normal NEG [facility] Comment on above: Performed By: #### U A, UMICAO #### [address] [place] [address] [employer] Tester: Peter Conklin MD Color Nom (U) YELLOW Normal L [facility] Comment on above: Performed By: #### U A, UMICAO #### [facility] [address] [place], [place] 9217483 [employer] Tester: Peter Conklin MD Glucose,Semi-qnt,Ur Negative Normal NEG [facility] Comment on above: Performed By: #### U A, UMICAO #### [facility] [address] [place], [place] 1495783 [employer] Tester: Peter Conklin MD Hemoglobin, Ur 3+ Abnormal NEG [facility] Comment on above: Performed By: #### U A, UMICAO #### [facility] [address] [place] [address] [employer] Tester: Peter Conklin MD Leuckocyte Esterase SMALL Abnormal NEG [facility] Comment on above: Performed By: #### U A, UMICAO #### [facility] [address] [place] [address] [employer] Tester: Peter Conklin MD Nitrite,Ur Negative Normal NEG [facility] Comment on above: Performed By: #### U A, UMICAO #### [facility] [address] [place] [address] [employer] Tester: Peter Conklin MD PH,Ur 5.5 Normal 5.0-9.0 [facility] Comment on above: Performed By: #### U A, UMICAO #### [facility] [address] [place] [address] [employer] Tester: Peter Conklin MD Protein mass conc (U) TRACE Abnormal NEG [facility] Comment on above: Performed By: #### U A, UMICAO #### [facility] [address] [place], [place] 7870483 [employer] Tester: Peter Conklin MD Spec. [place],Ur >1.030 High 1.010-1.020 [facility] Comment on above: Performed By: #### U A, UMICAO #### [facility] [address] [place] [address] [employer] Tester: Peter Conklin MD Turbidity SLIGHTLY CLOUDY Abnormal CLEAR [facility] Comment on above: Performed By: #### U A, UMICAO #### [facility] [address] [place], [place] [address]83 [employer] Tester: Peter Conklin MD Urobilinogen,Ur Normal Normal NORM [facility] Comment on above: Performed By: #### U A, UMICAO #### [facility] [address] [place], [place] 8[address]83 [employer] Tester: Peter Conklin MD Comment NOT REPORTED Normal [facility] Comment on above: Performed By: #### U A, UMICAO #### [facility] [address] [place], [place] [id number] [employer] Tester: Peter Conklin MD Urinalysis,Microon 9 ----- Normal [facility] Comment on above: Performed By: #### U A, UMICAO #### [facility] [address] [place], [place] 107[address] [employer] Tester: Peter Conklin MD Bacteria LM.HPF #/area (Urine sed) TRACE Abnormal [facility] Comment on above: Performed By: #### U A, UMICAO #### [facility] [address] [place], [facility]83 [employer] Tester: Peter Conklin MD Epithelial cells LM.HPF #/area (Urine sed) 2 TO 5 Normal 0-25 [facility] Comment on above: Performed By: #### U A, UMICAO #### [facility] [address] [place], [place] [address] [employer] Tester: Peter Conklin MD Mucus Strands TRACE Abnormal [facility] Comment on above: Performed By: #### U A, UMICAO #### [facility] [address] [place], [place] [address]83 [employer] Tester: Peter Conklin MD RBC #/vol (U) 50 TO 100 Normal 0-2 [facility] Comment on above: Performed By: #### U A, UMICAO #### [facility] [address] [place], [place] [address]133[address] [employer] Tester: Peter Conklin MD WBC #/vol (U) 2 TO 5 Normal 0-5 [facility] Comment on above: Performed By: #### U A, UMICAO #### [facility] [address] [place] [address] [employer] Tester: Peter Conklin MD Amorphous sediment LM Ql (Urine sed) NOT REPORTED Normal NONE [facility] Comment on above: Performed By: #### U A, UMICAO #### [facility] [address] [place] [address] [employer] Tester: Peter Conklin MD Casts LM.LPF #/area (Urine sed) NOT REPORTED Normal [facility] Comment on above: Performed By: #### U A, UMICAO #### [facility] [address] [place] [address] [employer] Tester: Peter Conklin MD Crystals LM Nom (Urine sed) NOT REPORTED Normal NONE [facility] Comment on above: Performed By: #### U A, UMICAO #### [facility] [address] [place] [address] [employer] Tester: Peter Conklin MD Epithelial, Renal NOT REPORTED Normal 0 [facility] Comment on above: Performed By: #### U A, UMICAO #### [facility] [address] [place] [address] [employer] Tester: Peter Conklin MD Other Observations NOT REPORTED Normal NREQ [facility] Comment on above: Performed By: #### U A, UMICAO #### [facility] [address] [place] [address] [employer] Tester: Peter Conklin MD Trichomonas NOT REPORTED Normal NONE [facility] Comment on above: Performed By: #### U A, UMICAO #### [facility] [address] [place] [address] [employer] Tester: Peter Conklin MD Yeast LM Ql (Urine sed) NOT REPORTED Normal NONE [facility] Comment on above: Performed By: #### U A, UMICAO #### [facility] [address] [place] [address] [employer] Tester: Peter Conklin MD Vital Signs Date Time Vital Sign Value Performing Clinician Facility 01-29-2024 10:03-0400 Body height 160.02 cm [facility] 01-29-2024 10:03-0400 Body mass index (BMI) [Ratio] 37.2 kg/m2 [facility] 01-29-2024 10:03-0400 Body weight 95.36 kg [facility] 01-29-2024 10:03-0400 Diastolic blood pressure 78 mm[Hg] [facility] 01-29-2024 10:03-0400 Heart rate 61 /min [facility] 01-29-2024 10:03-0400 Respiratory rate 12 /min [facility] 01-29-2024 10:03-0400 Systolic blood pressure 139 mm[Hg] [facility] 10-30-2023 09:35-0400 Body height 160.02 cm DO Mckinley Ball Work Phone: [facility] 10-30-2023 09:35-0400 Body mass index (BMI) [Ratio] 37.3 kg/m2 DO Mckinley Ball Work Phone: [facility] 10-30-2023 09:35-0400 Body weight 95.42 kg DO Mckinley Ball Work Phone: [facility] 10-30-2023 09:35-0400 Diastolic blood pressure 89 mm[Hg] DO Mckinley Ball Work Phone: [facility] 10-30-2023 09:35-0400 Heart rate 82 /min DO Mckinley Ball Work Phone: [facility] 10-30-2023 09:35-0400 Respiratory rate 12 /min DO Mckinley Ball Work Phone: [facility] 10-30-2023 09:35-0400 Systolic blood pressure 164 mm[Hg] DO Mckinley Ball Work Phone: [facility] 10-12-2023 09:18-0400 Body height 160.02 cm DO Mckinley Ball Work Phone: [facility] 10-12-2023 09:18-0400 Body mass index (BMI) [Ratio] 37 kg/m2 DO Mckinley Ball Work Phone: [facility] 10-12-2023 09:18-0400 Body weight 94.85 kg DO Mckinley Ball Work Phone: [facility] 10-12-2023 09:18-0400 Diastolic blood pressure 77 mm[Hg] DO Mckinley Ball Work Phone: [facility] 10-12-2023 09:18-0400 Heart rate 77 /min DO Mckinley Ball Work Phone: [facility] 10-12-2023 09:18-0400 Respiratory rate 12 /min DO Mckinley Ball Work Phone: [facility] 10-12-2023 09:18-0400 Systolic blood pressure 148 mm[Hg] DO Mckinley Ball Work Phone: [facility] 07-30-2023 15:01-0400 Body height 160.02 cm DO Mckinley Ball Work Phone: [facility] 07-30-2023 15:01-0400 Body mass index (BMI) [Ratio] 36.6 kg/m2 DO Mckinley Ball Work Phone: [facility] 07-30-2023 15:01-0400 Body weight 93.66 kg DO Mckinley Ball Work Phone: [facility] 07-30-2023 15:01-0400 Diastolic blood pressure 90 mm[Hg] DO Mckinley Ball Work Phone: [facility] 07-30-2023 15:01-0400 Heart rate 75 /min DO Mckinley Ball Work Phone: [facility] 07-30-2023 15:01-0400 Systolic blood pressure 149 mm[Hg] DO Mckinley Ball Work Phone: [facility] 06-13-2023 09:00-0500 Body height 161.29 cm Mckinley Ball Other [facility] Other 06-13-2023 09:00-0500 Body mass index (BMI) [Ratio] 35.43 kg/m2 Mckinley Ball Other [facility] Other 06-13-2023 09:00-0500 Body weight 92.17 kg Mckinley Ball Other [facility] Other 06-13-2023 09:00-0500 Diastolic blood pressure 77 mm[Hg] Mckinley Ball Other [facility] Other 06-13-2023 09:00-0500 Respiratory rate 12 /min Mckinley Ball Other [facility] Other 06-13-2023 09:00-0500 Systolic blood pressure 127 mm[Hg] Mckinley Ball Other [facility] Other 05-03-2023 08:30-0500 Body height 161.29 cm Mckinley Ball Other [facility] Other 05-03-2023 08:30-0500 Body mass index (BMI) [Ratio] 35.39 kg/m2 Mckinley Ball Other [facility] Other 05-03-2023 08:30-0500 Body weight 92.08 kg Mckinley Ball Other [facility] Other 05-03-2023 08:30-0500 Diastolic blood pressure 79 mm[Hg] Mckinley Ball Other [facility] Other 05-03-2023 08:30-0500 Respiratory rate 12 /min Mckinley Ball Other [facility] Other 05-03-2023 08:30-0500 Systolic blood pressure 133 mm[Hg] Mckinley Ball Other [facility] Other 03-08-2023 09:30-0400 Body height 161.29 cm Mckinley Ball Other [facility] Other 03-08-2023 09:30-0400 Body mass index (BMI) [Ratio] 35.01 kg/m2 Mckinley Ball Other [facility] Other 03-08-2023 09:30-0400 Body weight 91.08 kg Mckinley Ball Other [facility] Other 03-08-2023 09:30-0400 Diastolic blood pressure 83 mm[Hg] Mckinley Ball Other [facility] Other 03-08-2023 09:30-0400 Respiratory rate 12 /min Mckinley Ball Other [facility] Other 03-08-2023 09:30-0400 Systolic blood pressure 134 mm[Hg] Mckinley Ball Other [facility] Other 01-04-2023 11:30-0400 Body height 161.29 cm Mckinley Ball Other [facility] Other 01-04-2023 11:30-0400 Body mass index (BMI) [Ratio] 34.69 kg/m2 Mckinley Ball Other [facility] Other 01-04-2023 11:30-0400 Body weight 90.27 kg Mckinley Ball Other [facility] Other 01-04-2023 11:30-0400 Diastolic blood pressure 81 mm[Hg] Mckinley Ball Other [facility] Other 01-04-2023 11:30-0400 Respiratory rate 12 /min Mckinley Ball Other [facility] Other 01-04-2023 11:30-0400 Systolic blood pressure 131 mm[Hg] Mckinley Ball Other [facility] Other 12-12-2022 07:50-0400 Body height 153.1 cm Gustavo Li MD Work Phone: [facility] 12-12-2022 07:50-0400 Body mass index (BMI) [Ratio] 38.4 kg/m2 Gustavo Li MD Work Phone: [facility] 12-12-2022 07:50-0400 Body weight 90 kg Gustavo Li MD Work Phone: [facility] 11-01-2022 14:30-0400 Body height 161.29 cm Keara Bullard Other [facility] Other 11-01-2022 14:30-0400 Body mass index (BMI) [Ratio] 35.22 kg/m2 Keara Bullard Other [facility] Other 11-01-2022 14:30-0400 Body weight 91.63 kg Keara Bullard Other [facility] Other 11-01-2022 14:30-0400 Diastolic blood pressure 84 mm[Hg] Keara Bullard Other [employer] Other 11-01-2022 14:30-0400 Systolic blood pressure 130 mm[Hg] Keara Bullard Other [employer] Other 09-28-2022 10:05-0400 Diastolic blood pressure 75 mm[Hg] DO Mclaughlin [employer] Work Phone: [facility] 09-28-2022 10:05-0400 Heart rate 60 /min DO Arnoldo [employer] Work Phone: [facility] 09-28-2022 10:05-0400 Respiratory rate 16 /min DO Arnoldo [employer] Work Phone: [facility] 09-28-2022 10:05-0400 SaO2% (BldA) [Mass fraction] 98 % DO Arnoldo [employer] Work Phone: [facility] 09-28-2022 10:05-0400 Systolic blood pressure 153 mm[Hg] DO Arnoldo [employer] Work Phone: [facility] 09-28-2022 07:48-0400 Body height 160.02 cm DO Arnoldo [employer] Work Phone: [facility] 09-28-2022 07:48-0400 Body temperature 98.9 [degF] DO Arnoldo [employer] Work Phone: [facility] 09-28-2022 07:48-0400 Body weight 93.89 kg DO Arnoldo [employer] Work Phone: [facility] 07-04-2022 09:30-0500 Body height 161.29 cm Mckinley Ball Other [facility] Other 07-04-2022 09:30-0500 Body mass index (BMI) [Ratio] 36.3 kg/m2 Mckinley Ball Other [facility] Other 07-04-2022 09:30-0500 Body weight 94.44 kg Mckinley Ball Other [facility] Other 07-04-2022 09:30-0500 Diastolic blood pressure 78 mm[Hg] Mckinley Ball Other [facility] Other 07-04-2022 09:30-0500 Respiratory rate 12 /min Mckinley Ball Other [facility] Other 07-04-2022 09:30-0500 Systolic blood pressure 122 mm[Hg] Mckinley Ball Other [facility] Other 03-09-2022 15:30-0400 Body height 161.29 cm Arabella Pimentelault Other [employer] Other 03-09-2022 15:30-0400 Body mass index (BMI) [Ratio] 36.79 kg/m2 Arabella Pimentelault Other [facility] Other 03-09-2022 15:30-0400 Body temperature 97.1 [degF] Arabella Hawk Other [facility] Other 03-09-2022 15:30-0400 Body weight 95.71 kg Arabella Pimentelault Other [facility] Other 03-09-2022 15:30-0400 Diastolic blood pressure 85 mm[Hg] Arabella Pimentelault Other [facility] Other 03-09-2022 15:30-0400 Respiratory rate 18 /min Arabella Hawk Other [facility] Other 03-09-2022 15:30-0400 SaO2% (BldA) [Mass fraction] 99 % Arabella Hawk Other [facility] Other 03-09-2022 15:30-0400 Systolic blood pressure 135 mm[Hg] Arabella Hawk Other [facility] Other Encounters Encounter Date Encounter Type Care Provider Facility Start: 01-29-2024 End: 01-29-2024 ambulatory [facility] Work Phone: Start: 01-29-2024 End: 01-29-2024 Patient encounter procedure [facility] Work Phone: Start: 12-31-2023 Non-patient / Non-visit [facility] Work Phone: Start: 12-03-2023 Non-patient / Non-visit [facility] Work Phone: Start: 11-19-2023 Non-patient / Non-visit [facility] Work Phone: Start: 10-30-2023 End: 10-30-2023 ambulatory DO Mckinley Ball Work Phone: [facility] Work Phone: Start: 10-30-2023 End: 10-30-2023 Patient encounter procedure DO Mckinley Ball Work Phone: [facility] Work Phone: Start: 10-12-2023 End: 10-12-2023 ambulatory DO Mckinley Ball Work Phone: [facility] Work Phone: Start: 10-12-2023 End: 10-12-2023 Patient encounter procedure DO Mckinley Ball Work Phone: [facility] Work Phone: Start: 09-13-2023 End: 09-13-2023 ambulatory Mckinley Ball Facility:[facility] Start: 09-13-2023 End: 09-13-2023 ambulatory DO Mckinley Ball Work Phone: [facility] Work Phone: Start: 09-13-2023 End: 09-13-2023 Patient encounter procedure DO Mckinley Ball Work Phone: [facility] [address] Work Phone: Start: 09-12-2023 End: 09-12-2023 ambulatory Mckinley Alfaro Facility:[facility] Start: 09-12-2023 End: 09-12-2023 ambulatory DO Mckinley Alfaro Work Phone: [facility] Work Phone: Start: 09-12-2023 End: 09-12-2023 Patient encounter procedure DO Mckinley Alfaro Work Phone: [facility] [address] Work Phone: Start: 09-06-2023 End: 09-07-2023 ambulatory JIL HONG Not Available Start: 08-23-2023 End: 08-23-2023 ambulatory JIL HONG Not Available Start: 08-03-2023 Non-patient / Non-visit DO Augie Alfaro Work Phone: [facility] Work Phone: Start: 07-30-2023 End: 07-30-2023 Patient encounter procedure DO Mckinley Alfaro Work Phone: [facility] Work Phone: Start: 07-26-2023 End: 07-27-2023 ambulatory JIL HONG Not Available Start: 07-10-2023 End: 07-10-2023 ambulatory JIL HONG Not Available Start: 06-15-2023 End: 06-15-2023 ambulatory LYRIC RODRIGUEZ Not Available Start: 06-13-2023 Office outpatient vi sit 15 minutes Mckinley Alfaro [facility] Start: 06-13-2023 End: 06-14-2023 ambulatory JOHN JEROME [facility] [employer] Other Start: 06-12-2023 End: 06-12-2023 ambulatory DELL JOHNSON Not Available Start: 06-11-2023 End: 06-11-2023 ambulatory IVONNE CASTELLANO Not Available Start: 06-07-2023 End: 06-07-2023 ambulatory IVONNE RICHARDSONY Not Available Start: 06-05-2023 End: 06-05-2023 ambulatory IVONNE BORREROBLEY Not Available Start: 05-31-2023 End: 05-31-2023 ambulatory IVONNE BORREROBLEY Not Available Start: 05-29-2023 End: 05-29-2023 ambulatory RACHELLE JETER Not Available Start: 05-24-2023 End: 05-24-2023 ambulatory RACHELLE JETER Not Available Start: 05-22-2023 End: 05-22-2023 ambulatory RACHELLE JETER Not Available Start: 05-18-2023 End: 05-18-2023 ambulatory Mckinley Saleem Other [facility] Other Start: 05-18-2023 Telephone encounter Mckinley Alfaro [facility] Start: 05-10-2023 End: 05-10-2023 ambulatory RACHELLE JETER Not Available Start: 05-08-2023 End: 05-08-2023 ambulatory JIL HONG Not Available Start: 05-07-2023 End: 05-08-2023 ambulatory AL SALGADO Not Available Start: 05-03-2023 End: 05-03-2023 ambulatory IVONNE RICHARDSONY [facility] [employer] Other Start: 05-03-2023 Office outpatient vi sit [address] [facility] Start: 04-30-2023 End: 05-01-2023 ambulatory IVONNE BORREROBLEY Not Available Start: 04-25-2023 End: 04-25-2023 ambulatory JOHN Keeley AYALAING Not Available Start: 04-20-2023 End: 04-21-2023 ambulatory [...] 03-08-2023 End: 03-08-2023 ambulatory Mckinley Alfaro Other [employer] Other Start: 03-08-2023 Office outpatient vi sit [address] [facility] Start: 02-07-2023 End: 02-07-2023 ambulatory Mckinley Alfaro Other [employer] Other Start: 02-07-2023 Telephone encounter Mckinley BRYANT G [facility] Start: 01-04-2023 End: 01-04-2023 ambulatory Mckinley Alfaro Other [facility] Other Start: 01-04-2023 Encounter for other preprocedural examination Mckinley Alfaro [facility] Start: 01-04-2023 Office outpatient vi sit [address] [facility] Start: 12-21-2022 Message Mckinley chase Work Phone: [facility] a 219 DO Work Phone: Start: 12-12-2022 End: 12-12-[address] Gustavo Li Facility:Replaced by [facility] Start: 12-12-2022 End: 12-12-2022 Subsequent hospital visit by physician Gustavo Li MD Work Phone: [facility] Comment on above: Polyp of stomach and duodenum Start: 11-16-2022 End: 11-16-2022 ambulatory Mckinley Alfrao Other [facility] Other Start: 11-16-2022 Telephone encounter Mckinley BRYANT G [facility] Start: 11-01-2022 End: 11-01-2022 ambulatory Keara Bullard Other [employer] Other Start: 11-01-2022 Office outpatient vi sit [address] [facility] Start: 09-28-2022 End: 09-28-2022 ambulatory Niurka Oliveira Facility:[facility] Start: 09-28-2022 End: 09-28-2022 Admission to same day surgery center DO Arnoldo House Work Phone: [facility] Work Phone: Start: 09-28-2022 End: 09-28-2022 ambulatory DO Arnodlo House Work Phone: [facility] Work Phone: Start: 07-20-2022 End: 07-20-2022 ambulatory Mckinley Alfaro Other [facility] Other Start: 07-20-2022 Telephone encounter Mckinley Alfaro [facility] Start: 07-19-2022 End: 07-20-[address] MCKINLEY ALFARO Facility:[facility] Start: 07-04-2022 End: 07-04-2022 ambulatory Mckinley Alfaro Other [facility] Other Start: 07-04-2022 Office outpatient vi sit [address] [facility] Start: 06-14-2022 End: 06-14-2022 ambulatory Arabella Arechiga Other [employer] Other Start: 06-14-2022 Telephone encounter Arabella vega [facility] Start: 06-13-2022 End: 06-14-[address] MCKINLEY ALFARO Facility:[facility] Start: 06-07-2022 End: 06-07-[address] MCKINLEY ALFARO Facility:[facility] Start: 05-03-2022 End: 05-04-[address] MCKINLEY ALFARO Facility:[facility] Start: 03-31-2022 End: 04-01-[address] MCKINLEY ALFARO Facility:[facility] Start: 03-09-2022 End: 03-09-2022 ambulatory Arabella Aerchiga Other [employer] Other Start: 03-09-2022 Office outpatient vi sit 15 minutes Arabella Arechiga [facility] Start: 09-29-2021 End: 09-30-[address] MCKINLEY ALFARO Facility: Start: 10-05-2018 End: 10-05-2018 Emergency department patient visit MCKINLEY Levon SALEEM [facility] Start: 10-04-2018 End: 10-04-2018 Emergency department patient visit HARJIT COELLOCHAN [facility] Start: 09-25-2017 End: 09-26-2017 Ambulatory DEFAULT PHYSICIAN Facility[facility] Start: 09-07-2017 End: 09-08-2017 Ambulatory DEFAULT PHYSICIAN Facility:[facility] Procedures Date Procedure Procedure Detail Performing Clinician Start: 09-13-2023 Plain X-ray of bilateral hands DO Grayson Alfaro Work Phone: Start: 09-13-2023 Plain chest X-ray DO Mckinley Alfaro Work Phone: Start: 12-12-2022 SURGICAL PATHOLOGY RESULTS Gustavo Li MD Work Phone: Start: 12-12-2022 Esophagoscopy flexible transoral ultrasound exam Gustavo Li MD Work Phone: Start: 09-28-2022 Esophagogastroduodenoscopy DO Arnoldo kowalski Work Phone: Start: 10-04-2018 Urinalysis microscopic only HARJIT NE Start: 10-04-2018 Urnls dip stick/tablet rgnt auto w/o microscopy HARJIT EIPIPER Start: 10-04-2018 Ct abdomen & pelvis w/o contrast material HARJIT EINALDOES Start: 10-04-2018 INSERT PERIPHERAL IV HARJIT EIPIPER Start: 10-04-2018 Blood count complete auto&auto difrntl wbc HARJIT NE Plan of Treatment Date Care Activity Detail Author Start: 09-12-2023 Hepatitis B core antibody measurement [facility] Start: 09-12-2023 [facility] Start: 01-19-2023 Influenza vaccination Influenza Vaccine (#1) [facility] Start: 09-28-2022 [facility] Start: 2017 Pneumococcal Vaccine: 65+ Years (1 - PCV) Pneumococcal Vaccine: 65+ Years (1 - PCV) [facility] Start: 2002 Zoster Vaccines (1 of 2) Zoster Vaccines (1 of 2) [facility] Start: 1992 Screening for malignant neoplasm of breast Mammogram [facility] Start: 1974 DTaP/Tdap/Td Vaccines (1 - Tdap) DTaP/Tdap/Td Vaccines (1 - Tdap) [facility] Start: 1970 Hepatitis C screening Hepatitis C Screening [facility] Start: 1952 COVID-19 Vaccine (#1) COVID-19 Vaccine (#1) [facility] Start: 1952 Lipid panel Lipid Panel [facility] Start: 1952 Screening for malignant neoplasm of colon [facility] Start: 1952 Screening for osteoporosis Bone Density Scan [facility] Start: 1952 Yearly Adult Physical Yearly Adult Physical [facility] Comprehensive metabo lic 2000 panel - Serum or Plasma [facility] Hepatitis B virus jimenez rface Ab [Presence] in Serum [facility] Hepatitis B virus jimenez rface Ag [Presence] in Serum or Plasma by Immunoassay [facility] Hepatitis C virus Ig G Ab [Presence] in Serum or Plasma by Immunoassay [facility] MG Breast - bilatera l Screening [facility] Patient Education Esophageal Dil ation Hiatal Hernia (DC) Stomach Polyps [facility] Work Phone: Rheumatoid factor [Units/volume] in Serum or Plasma [facility] Thyroid stimulating immunoglobulins actual/normal in Serum [facility] XR Hip - left 2 Views [facility] Immunizations Immunization Date Immunization Notes Care Provider Radha gunn 01-29-2024 influenza, high dose seasonal, preservative-free [facility] 03-08-2023 influenza virus vaccine, unspecified formulation DO Mckinley Alfaro Work Phone: [facility] 03-08-2023 influenza, high dose seasonal, preservative-free Mckinley Alfaro Other [employer] Other 04-07-2022 diphtheria, tetanus toxoids and acellular pertussis vaccine, unspecified formulation Mckinley Alfaro Other [facility] 03-01-2022 influenza virus vaccine, split virus (incl. purified surface antigen) Mckinley Alfaro Other [employer] Other 03-01-2022 influenza virus vaccine, unspecified formulation DO Mckinley Alfaro Work Phone: [facility] 08-04-2019 pneumococcal conjuga te vaccine, 13 valent Mckinley Alfaro Other [facility] Payers Date Payer Category Payer Self-pay [id number] 2022 Unknown [id number] 2015 Unknown [id number] 2015 Unknown [id number] 1959 Medicare [id number] 2.16.840.1.888603.19 1959 Self-pay [id number] 1959 Unknown [id number] 2.16.840.1.244786.19 1952 Unknown [id number] 2.16.840.1.034287.3.579.2.1 73 1952 Unknown [id number] 2.16.840.1.602127.3.579.2.1 73 1952 Unknown [id number] 2.16.840.1.051757.3.579.2.5 93 1952 Unknown [id number] 2.16.840.1.642419.3.579.2.5 93 1952 Unknown [id number] 2.16.840.1.795556.3.579.2.5 93 1952 Unknown [id number] 2.16.840.1.775820.3.579.2.5 93 1952 Unknown [id number] 2.16.840.1.578938.3.579.2.5 93 1952 Unknown [id number] 2.16.840.1.671889.3.579.2.1 069 1952 Unknown [id number] 2.16.840.1.466232.3.579.2.1 259 1952 Unknown [id number] 2.16.840.1.218662.3.579.2.1 259 1952 Unknown [id number] 2.16.840.1.680909.3.579.2.1 259 1952 Unknown [id number] 2.16.840.1.566605.3.579.2.1 259 1952 Unknown [id number] 2.16.840.1.315738.3.579.2.1 259 1952 Unknown [id number] 2.16.840.1.840017.3.579.2.1 259 1952 Unknown [id number] 2.16.840.1.017437.3.579.2.1 259 1952 Unknown [id number] 2.16.840.1.325126.3.579.2.1 259 1952 Unknown [id number] 2.16.840.1.838580.3.579.2.1 259 1952 Unknown [id number] 2.16.840.1.845475.3.579.2.1 259 1952 Unknown [id number] 2.16.840.1.630552.3.579.2.1 259 1952 Unknown [id number] 2.16.840.1.196141.3.579.2.1 259 1952 Unknown [id number] 2.16.840.1.937469.3.579.2.1 259 1952 Unknown [id number] 2.16.840.1.947211.3.579.2.1 259 1952 Unknown [id number] 2.16.840.1.955952.3.579.2.1 259 1952 Unknown [id number] 2.16.840.1.311498.3.579.2.1 259 1952 Unknown [id number] 2.16.840.1.864294.3.579.2.1 259 1952 Unknown [id number] 2.16.840.1.762268.3.579.2.1 259 1952 Unknown [id number] 2.16.840.1.789588.3.579.2.1 259 1952 Unknown [id number] 2.16.840.1.183686.3.579.2.1 259 1952 Unknown [id number] 2.16.840.1.769512.3.579.2.1 259 1952 Unknown [id number] 2.16.840.1.377957.3.579.2.1 259 1952 Unknown [id number] 2.16.840.1.260345.3.579.2.1 259 1952 Unknown [id number] 2.16.840.1.831229.3.579.2.1 259 1952 Unknown [id number] 2.16.840.1.351129.3.579.2.1 259 1952 Unknown [id number] 2.16.840.1.104025.3.579.2.1 259 1952 Unknown [id number] 2.16.840.1.495122.3.579.2.1 259 1952 Unknown [id number] 2.16.840.1.163460.3.579.2.1 259 1952 Unknown [id number] 2.16.840.1.168998.3.579.2.1 259 Medicare Medicare-OP No Part B [id number] Unknown Unknown [id number] 2.16.840.1.717108.3.579.2.5 93 Unknown [id number] 2.16.840.1.702267.3.579.2.5 31 Unknown [id number] 2.16.840.1.195831.3.579.2.5 31 Unknown [id number] 2.16.840.1.916268.3.579.2.5 31 Worker's Compensation [employer] [facility] [id number] Social History Date Type Detail Facility Unknown if ever smoked [facility] Other Sex Assigned At [facility] Other Start: 09-28-2022 Tobacco smoking status LAIS Never smoked tobacco (finding) [facility] Start: 1950 Sex Assigned At Female F [facility] Tobacco smoking status [facility] Tobacco smoking consumption unknown [facility] Work Phone: Start: 1950 Sex Assigned At Not on file U [facility] Work Phone: Goals Date Patient [...] Orthopedics w/ increased pain or trigger finger [facility] Other 12-14-2023 Evaluation note* Encounter Date Diagnosis [...] index [BMI] 35.0-35.9, adult (ICD-10 - Z68.35) [facility] Other 10-19-2023 Evaluation note* Encounter Date Diagnosis [...] to r/o fracture Continue Mobic and add Greenwood for now. Consider PT if XR negative Feb, Right hip pain (ICD-10 - M25.551) XR to determine degree of arthritis and r/o fx. ROM exercises COntinue Mobic and add Greenwood for now. Feb, Seborrheic dermatitis (ICD-10 - [...] index [BMI] 35.0-35.9, adult (ICD-10 - Z68.35) [facility] Other 08-17-2023 Evaluation note* Encounter Date Diagnosis [...] also instructed to stop Mobic and start Greenwood, 7 days prior to her procedure. Dec, Gastroesophageal reflux disease with esophagitis without hemorrhage (ICD-10 - K21.00) Stable, continue medication w/o interruption Dec, Traumatic complete tear of right rotator cuff, subsequent encounter (ICD-10 - S46.011D) Scheduled for arthroscopic repair w/ Dr. Hong. 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 Refer to note in patient chart for documentation of history and physical. Providers: Gustavo Li MD (Doctor), Sara Castillo RN (Nurse), Maciel Ferrer, Auto Service Representative Referring: Gustavo Li MD Medicines: See the [...] biopsy result. 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 Discussed options of treatment due to pt leaving for [place] on Sunday. SHe is agreeable to kenalog [...] Oct, Right hip pain (ICD-10 - M25.551) [facility] Other [facility]* Encounter Date Diagnosis Assessment [...] exercise for 30 minutes, 3-5 times weekly. [facility] Other 10-20-2022 Evaluation note* Encounter Date Diagnosis [...] with primary care provider to discuss reaction. [facility] Other Evaluation noteNo InformationN[employer] Other Evaluation note* Diagnosis Onset Date Resolution Status Dysphagia acute [facility] Work Phone: Evaluation note* Diagnosis Polyp of stomach and duodenum documented in this encounter [facility] Work Phone: Evaluation note* Diagnosis Onset Date Resolution Status Age-related osteoporosis wit hout current pathological fracture acute Dupuytren's contracture of right hand acute GERD (gastroesophageal reflux disease) acute Hypertension acute Inflammatory polyarthritis a cute Lumbar spondylosis acute Trigger finger acute Medicare annual wellness visit, subsequent noneactive Screening mammogram for breast cancer noneactive [facility] Work Phone: Evaluation note* Diagnosis Onset [...] Strain of hip and thigh acut e [facility] Work Phone: Evaluation note* Diagnosis Onset Date Resolution Status Left hip pain acute Primary osteoarthritis of hip acute Strain of hip and thigh acut e Age-related osteoporosis wit hout current pathological fracture acute Fibromyalgia acute GERD (gastroesophageal reflux disease) acute Hypertension acute Inflammatory polyarthritis a cute Lumbar spondylosis acute Trigger finger acute [facility] Work Phone: Evaluation note* Diagnosis Onset Date Resolution Status Age-related osteoporosis wit hout current pathological fracture acute Fibromyalgia acute GERD (gastroesophageal reflux disease) acute Hypertension acute Lumbar spondylosis acute Opiate analgesic use agreement exists acute Psoriatic arthritis acute [facility] Work Phone: Histwdq general Narrative - Reported* Type Description Date Medical History Hypertension Medical History Acid reflux Medical History Hiatal hernia Surgical History back surgery x3 Surgical History Neck Surgery Surgical History shoulder arthroscopy Surgical History hysterectomy Surgical History cholecystectomy Hospitalization History see above [facility] Other Hismulv general Narrative - Reported* Type Description Date Medical History Hypertension Medical History Acid reflux Medical History Hiatal hernia Surgical History back surgery x3 Surgical History Neck Surgery Surgical History shoulder arthroscopy Surgical History hysterectomy Surgical History cholecystectomy Surgical History EGD w/ bx and dilatation 09/2022 Hospitalization History see above [facility] Other Hisjxko general Narrative - Reported* Type Description Date Medical History Hypertension Medical History Acid reflux Medical History Hiatal hernia Surgical History back surgery x3 Surgical History Neck Surgery Surgical History shoulder arthroscopy Surgical History hysterectomy Surgical History cholecystectomy Surgical History EGD w/ bx and dilatation 09/2022 Surgical History Right shoulder arthroscopy 02/07 23 Hospitalization History see above [facility] Other Hispdnw general Narrative - Reported* Type Description Date Medical History Hypertension Medical History Acid reflux Medical History Hiatal hernia Surgical History back surgery x3 Surgical History Neck Surgery Surgical History shoulder arthroscopy Surgical History hysterectomy Surgical History cholecystectomy Surgical History EGD w/ bx and dilatation 09/2022 Surgical History Right shoulder arthroscopy 02/07 23 Surgical History Endoscopic US 11/2022 Hospitalization History see above [facility] Other Hospital Discharge instructions Additional Instructions DISCHARGE [...] if you have any problems. -Office number [phone] Work Phone: Summary Purpose Family History Relationship [...] cancer Unknown Not Specified Heart disease Unknown Relationship Condition Age at Onset Recorded Date/T ricardo father History of coronary artery bypass surgery Unknown Diabetes mellitus Unknown Dementia Unknown mother Hypertension Unknown Myocardial infarction Unknown sister Diabetes mellitus Unknown father Heart disease Unknown family member Family history of colon cancer Unknown mother Heart disease Unknown Advance Directives Advance Directive [...] Hypertension Inflammatory polyarthritis Lumbar spondylosis Trigger finger Chief Complaint 3 month follow up Reason for Visit Age-related osteopor osis without current pathological fracture Fibromyalgia GERD (gastroesophageal reflux disease) Hypertension Lumbar spondylosis Opiate analgesic use agreement exists Psoriatic arthritis Additional Source Comments INFORMATION SOURCE (unrecogn ized section and content) DATE CREATED AUTHOR 11/08/[address] [facility] DATE CREATED AUTHOR AUTHOR'S ORGANIZ ATION 10/13/2018 [facility] DATE CREATED AUTHOR AUTHOR'S ORGANIZ ATION 07/21/2022 [facility] DATE CREATED AUTHOR AUTHOR'S ORGANIZ ATION 12/21/2022 [facility] DATE CREATED AUTHOR AUTHOR'S ORGANIZ ATION 12/22/2022 [facility] DATE CREATED AUTHOR AUTHOR'S ORGANIZ ATION 09/10/2023 [facility] EPIC DATE CREATED AUTHOR AUTHOR'S ORGANIZ ATION 09/21/2023 [facility] REASON FOR VISIT (unrecogniz ed section and content) Reason Comments Other EGD/EUS D49.0 [id number] Care Teams (unrecognized sec tion and content) Team Status: Active Member Role Status Lara Alfaro DO Primary Care Provider Active Team Status: Active Member Role Status Lara Alfaro DO Primary Care Provide r, Attending Provider Active Start: August 03, 2023 Team Status: Inactive Member Role Status Lara Alfaro DO Primary Care Provider Active Start: September 12, 2023 End: September 12, 2023 Tano Tsai MD Attending Provider Active St art: September 12, 2023 End: September 12, 2023 Team Status: Inactive Member Role Status Lraa Alfaro DO Primary Care Provider Active Start: [...] Active Niurka Oliveira MD Attending Provider Active Media Director Relationship Specialty Start Date End Date Mckinley Alfaro DO PCP - General 12/08/22 Team Status: Inactive Member Role Status Lara Alfaro DO Primary Care Provide r, Attending Provider Active Start: July 30, 2023 End: July 30, 2023 Team Status: Active Member Role Status Lara Alfaro DO Primary Care Provide r, Attending Provider Active Start: November 19, 2023 Team Status: Active Member Role Status Lara Alfaro DO Primary Care Provider Active Start: December 03, 2023 Taon Tsai MD Attending Provider Active St art: December 03, 2023 Team Status: Active Member Role Status Lara Alfaro DO Primary Care Provider Active Start: December 31, 2023 Tano Tsai MD Attending Provider Active St art: December 31, 2023 Team Status: Inactive Member Role Status Dates Mckinley Alfaro , DO Primary Care Provide r, Attending Provider Active Start: January 29, 2024 End: January 29, 2024 Goals (unrecognized section and content) Goals may [...] BE BASED ON THE PRIMARY CLINICAL RECORDS. [facility] [employer] provides no warranty or guarantee of the accuracy or completeness of information in this document.
--- OUTSIDE RECORDS SUMMARY | 2024-02-26 12:09 | XMS_ITS | CCD ---
Author Organization [facility] Care Team Providers Care Radio Mechanic Name Role Phone PHYSICIAN, DEFAULT Unavailable Unavailable [...] DR SHARPE Consulting Unavailable ZIEBER, DR TIFFANY Vasuqez Consulting Unavailable BALL, DR LOPEZ Primary Care [...] Care Provider MD Niurka Oliveira Attending Provider [phone] Keara Bullard Unavailable Mckinley Alfaro Unavailable Dinary, [...] Primary Care Unavailable Tano Tsai Attending Unavailable aTno Tsai Admitting Unavailable Allergies Allergy Classification Reported Allergen(s) Allergy Type Date of Onset Reaction(s) Facility Adhesive Tape (1 source) Adhesive Tape Substance Allergy 10-30-[address] [facility] Dihydrofolate Reductase Inhibitors (antibiotic) (1 source) Trimethoprim Drug Allergy 10-30-[address] [facility] Nitrofurantoin (1 source) Nitrofurantoin Drug Allergy 10-30-19 24 Comment:Macrob id [facility] Penicillins (antibiotic) (1 source) Penicillins Drug Allergy 10-30-19 24 Swelling of Lip/Tongue/Thr oat [facility] Sulfonamides (antibiotic) (1 source) Sulfamethoxazole Drug Allergy 10-30-[address] [facility] tiZANidine (1 source) tiZANidine Drug Allergy 10-30-[address] [facility] (6 sources) Penicillin G Drug Allergy anaphylaxis [employer] Other (1 source) Penicillin Drug Allergy 01-23-20 15 [facility] Repository (6 sources) Adhesive Tape; Translations: [adhesive tape] Propensity to adverse reactions 02-24-[address] [facility] (7 sources) Penicillins; Translations: [Penicillins] Allergy to substance 02-24-20 17 Swelling of Lip/Tongue/Thr oat [facility] (6 sources) Adhesive Tape Drug allergy 04-19-20 16 Unknown [employer] Other (10 sources) Nitrofurantoin Drug Allergy 07-30-19 24 Comment:Macrob id [facility] (6 sources) Sulfamethoxazole / Trimethoprim Drug Allergy Unknown [employer] Other (6 sources) tiZANidine Comfort Pac *MUSCULOSKELETAL THERAPY AG Propensity to adverse reactions Comment:Could not sleep/rest. [employer] Other (6 sources) Substance with penicillin structure and antibacterial mechanism of action (substance) Drug allergy 04-19-20 16 Unknown [employer] Other (5 sources) Sulfamethoxazole; Translations: [sulfamethoxazole] Drug Allergy 07-30-[address] [facility] (5 sources) tiZANidine; Translations: [tizanidine] Drug Allergy 07-30-[address] [facility] (5 sources) Trimethoprim; Translations: [trimethoprim] Drug Allergy 07-30-[address] [facility] (1 source) Nitrofurantoin Drug Allergy 07-30-19 [facility] Repository Medications Current Medications Medication Drug [...] th every twenty-four hours Biotin Maximum Strength 31342 MCG 1 tablet Orally Once a day PRN Active take 1 tablet by romulo th every twenty-four hours Biotin Maximum Strength 27425 MCG 1 tablet Orally Once a day PRN Active Biotin Maximum Strength 32892 MCG (7 sources) take 1 tablet by romulo th once daily as needed Biotin Maximum Strength 35362 MCG 1 tablet Orally Once a day PRN Active take 1 tablet by mouth once gayla y Biotin Maximum Strength 05663 MCG 1 tablet Orally Once a day [...] Start: 05-17-2023 take 1 capsule by mo [facility] every twenty-four hours Potassium Chloride ER 10 [...] injection (8 sources) Bisphosphonate Start: 07-26-2023 Zoledronic Wnla-Fhmjvaoa-Sqidj (Reclast) 5 mg/100 mL piggyback Active EACH [...] / neomycin 3.5 mg/ml / polymyxin b 16486 unt/ml otic solution (12 sources) Aminoglycoside Antibacterial, Polymyxin-class Antibacterial, Corticosteroid Start: 03-09-2022 Qpdafltq-Vubbozmcb-GR 3.5-86692-7 4 drops into affected ear Otic Three [...] 8:46am Meclizine (12 sources) Antiemetic Meclizine HCl KS N Not-Taking/PRN Meclizine HCl KS N Not-Taking Meclizine HCl KS N Active methylPREDNISolone 4 mg oral tablet [...] 24, 2017 12:00am October 21, 2018 8:46am [place] 4-Occ-Fkb-Fish Oil (Fish Oil) 1,000 mg (120 mg-180 mg) Capsule (6 sources) Start: 02-23-2017 End: 08-24-2017 take 1 capsule by mouth once daily [place] 1-Dbv-Duu-Fish Oil (Fish Oil) 1,000 mg (120 mg-180 mg) Capsule Discontinued 1 CAP PO Daily February 23, 2017 12:00am August 24, 2017 7:39am [place] Red (6 sources) Start: 04-02-2018 End: 09-28-2022 take 1 tablet by mouth once daily [place] Red Discontinued 1 TAB PO Daily [...] (1 source) Drug therapy finding; Translations: [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 Basophils/100 WBC Auto (Bld) on 12-31-2023 Basophils/100 WBC (Bld) 0.5 % 0.2-2.0 [facility] Eosinophils/100 WBC Auto (Bl d)on 12-31-2023 Eosinophils/100 WBC (Bld) 4.9 % 0.9-7.0 [facility] Erythrocyte distribution wid th Auto (RBC) [Ratio]on 12-31-2023 Erythrocyte distribution width (RBC) [Ratio] 15.1 % High 11.0-15.0 [facility] Estimated glomerular filtrat ion rate (GFR) non- Americanon 12-31-2023 GFR/1.73 sq M.predicted among non-blacks MDRD (S/P/Bld) [Vol rate/Area] 55 mL/min/{1.73_m2} Low >=60 [facility] Globulin Calc (S) [Mass/Vol] on 12-31-2023 Globulin (S) [Mass/Vol] 3.2 g/dL [facility] Hematocrit Auto (Bld) [Volum e fraction]on 12-31-2023 Hematocrit (Bld) [Volume fraction] 35.0 % Low 36.0-48.0 [facility] Hemoglobin [Mass/volume] in Bloodon 12-31-2023 Hemoglobin (Bld) [Mass/Vol] 11.4 g/dL Low 12.0-16.0 [facility] Laboratory - Chemistry and C hemistry - challengeon 12-31-2023 Albumin [Mass/Vol] 3.3 g/dL Low 3.4-5.0 [facility] ALP [Catalytic activity/Vol] 93 U/L 46-116 [facility] ALT [Catalytic activity/Vol] 31 U/L 14-59 [facility] AST [Catalytic activity/Vol] 20 U/L 15-37 [facility] Bilirubin [Mass/Vol] 0.6 mg/dL 0.2-1.0 [facility] Bilirubin.direct [Mass/Vol] 0.1 mg/dL 0.0-0.2 [facility] Creatinine [Mass/Vol] 1.00 mg/dL 0.55-1.02 [facility] GFR/1.73 sq M.predicted MDRD (S/P/Bld) [Vol rate/Area] mL/min/{1.73_m2} >=60 [facility] Protein [Mass/Vol] 6.5 g/dL 6.4-8.2 [facility] Laboratory - Hematology and Cell countson 12-31-2023 ESR (Bld) [Velocity] 19 mm/h <=30 [facility] Immature granulocytes/100 WBC (Bld) 0.4 % 0.0-0.5 [facility] Leukocytes [#/volume] correc loan for nucleated erythrocytes in Blood by Automated counon 12-31-2023 WBC corrected for nucl RBC Auto (Bld) [#/Vol] 5.7 10 3/uL 4.0-11.0 [facility] Lymphocytes Auto (Bld) [#/Vo l]on 12-31-2023 Lymphocytes (Bld) [#/Vol] 1.4 10 3/uL 1.2-3.8 [facility] Lymphocytes/100 WBC Auto (Bl d)on 12-31-2023 Lymphocytes/100 WBC (Bld) 24.7 % 20.5-60.0 [facility] MCH Auto (RBC) [Entitic mass ]on 12-31-2023 MCH (RBC) [Entitic mass] 29.2 pg 26.7-34.0 [facility] MCHC Auto (RBC) [Mass/Vol]on 12-31-2023 MCHC (RBC) [Mass/Vol] 32.6 g/dL 29.9-35.2 [facility] MCV Auto (RBC) [Entitic vol] on 12-31-2023 MCV (RBC) [Entitic vol] 89.5 fL 81.0-99.0 [facility] Monocytes Auto (Bld) [#/Vol] on 12-31-2023 Monocytes (Bld) [#/Vol] 0.6 10 3/uL 0.3-0.8 [facility] Monocytes/100 WBC Auto (Bld) on 12-31-2023 Monocytes/100 WBC (Bld) 10.4 % 1.7-12.0 [facility] Neutrophils Auto (Bld) [#/Vo l]on 12-31-2023 Neutrophils (Bld) [#/Vol] 3.4 10 3/uL 1.4-6.5 [facility] Neutrophils/100 WBC Auto (Bl d)on 12-31-2023 Neutrophils/100 WBC (Bld) 59.1 % 43.0-75.0 [facility] No Panel Informationon 12-30 Eosinophils # (Auto) 0.3 10 3/uL 0.0-0.7 [facility] Immature Granulocyte # (Auto) 0.02 10 3/uL 0.00-0.03 [facility] Platelet mean volume Auto (B ld) [Entitic vol]on 12-31-2023 Platelet mean volume (Bld) [Entitic vol] 11.7 fL 9.5-13.5 [facility] Platelets Auto (Bld) [#/Vol] on 12-31-2023 Platelets (Bld) [#/Vol] 228 10 3/uL 150-450 [facility] RBC Auto (Bld) [#/Vol]on RBC (Bld) [#/Vol] 3.91 10 6/uL Low 4.20-5.40 [facility] Serum or plasma albumin/glob ulin mass ratioon 12-31-2023 Albumin/Globulin [Mass ratio] 1.0 {ratio} [facility] Basophils Auto (Bld) [#/Vol] on 12-03-2023 Basophils (Bld) [#/Vol] 0.0 10 3/uL 0.0-0.1 [facility] Basophils/100 WBC Auto (Bld) on 12-03-2023 Basophils/100 WBC (Bld) 0.4 % 0.2-2.0 [facility] Eosinophils/100 WBC Auto (Bl d)on 12-03-2023 Eosinophils/100 WBC (Bld) 3.2 % 0.9-7.0 [facility] Erythrocyte distribution wid th Auto (RBC) [Ratio]on 12-03-2023 Erythrocyte distribution width (RBC) [Ratio] 14.5 % 11.0-15.0 [facility] Estimated glomerular filtrat ion rate (GFR) non- Americanon 12-03-2023 GFR/1.73 sq M.predicted among non-blacks MDRD (S/P/Bld) [Vol rate/Area] 59 mL/min/{1.73_m2} Low >=60 [facility] Globulin Calc (S) [Mass/Vol] on 12-03-2023 Globulin (S) [Mass/Vol] 3.6 g/dL [facility] Hematocrit Auto (Bld) [Volum e fraction]on 12-03-2023 Hematocrit (Bld) [Volume fraction] 37.9 % 36.0-48.0 [facility] Hemoglobin [Mass/volume] in Bloodon 12-03-2023 Hemoglobin (Bld) [Mass/Vol] 12.3 g/dL 12.0-16.0 [facility] Laboratory - Chemistry and C hemistry - challengeon 12-03-2023 Albumin [Mass/Vol] 3.4 g/dL 3.4-5.0 [facility] ALP [Catalytic activity/Vol] 95 U/L 46-116 [facility] ALT [Catalytic activity/Vol] 27 U/L 14-59 [facility] AST [Catalytic activity/Vol] 23 U/L 15-37 [facility] Bilirubin [Mass/Vol] 0.5 mg/dL 0.2-1.0 [facility] Bilirubin.direct [Mass/Vol] 0.1 mg/dL 0.0-0.2 [facility] Creatinine [Mass/Vol] 0.94 mg/dL 0.55-1.02 [facility] GFR/1.73 sq M.predicted MDRD (S/P/Bld) [Vol rate/Area] mL/min/{1.73_m2} >=60 [facility] Protein [Mass/Vol] 7.0 g/dL 6.4-8.2 [facility] Laboratory - Hematology and Cell countson 12-03-2023 ESR (Bld) [Velocity] 22 mm/h <=30 [facility] Immature granulocytes/100 WBC (Bld) 0.1 % 0.0-0.5 [facility] Leukocytes [#/volume] correc loan for nucleated erythrocytes in Blood by Automated counon 12-03-2023 WBC corrected for nucl RBC Auto (Bld) [#/Vol] 7.5 10 3/uL 4.0-11.0 [facility] Lymphocytes Auto (Bld) [#/Vo l]on 12-03-2023 Lymphocytes (Bld) [#/Vol] 1.6 10 3/uL 1.2-3.8 [facility] Lymphocytes/100 WBC Auto (Bl d)on 12-03-2023 Lymphocytes/100 WBC (Bld) 21.7 % 20.5-60.0 [facility] MCH Auto (RBC) [Entitic mass ]on 12-03-2023 MCH (RBC) [Entitic mass] 28.9 pg 26.7-34.0 [facility] MCHC Auto (RBC) [Mass/Vol]on 12-03-2023 MCHC (RBC) [Mass/Vol] 32.5 g/dL 29.9-35.2 [facility] MCV Auto (RBC) [Entitic vol] on 12-03-2023 MCV (RBC) [Entitic vol] 89.0 fL 81.0-99.0 [facility] Monocytes Auto (Bld) [#/Vol] on 12-03-2023 Monocytes (Bld) [#/Vol] 0.7 10 3/uL 0.3-0.8 [facility] Monocytes/100 WBC Auto (Bld) on 12-03-2023 Monocytes/100 WBC (Bld) 9.1 % 1.7-12.0 [facility] Neutrophils Auto (Bld) [#/Vo l]on 12-03-2023 Neutrophils (Bld) [#/Vol] 4.9 10 3/uL 1.4-6.5 [facility] Neutrophils/100 WBC Auto (Bl d)on 12-03-2023 Neutrophils/100 WBC (Bld) 65.5 % 43.0-75.0 [facility] No Panel Informationon 12-02 Eosinophils # (Auto) 0.2 10 3/uL 0.0-0.7 [facility] Immature Granulocyte # (Auto) 0.01 10 3/uL 0.00-0.03 [facility] Platelet mean volume Auto (B ld) [Entitic vol]on 12-03-2023 Platelet mean volume (Bld) [Entitic vol] 11.6 fL 9.5-13.5 [facility] Platelets Auto (Bld) [#/Vol] on 12-03-2023 Platelets (Bld) [#/Vol] 250 10 3/uL 150-450 [facility] RBC Auto (Bld) [#/Vol]on RBC (Bld) [#/Vol] 4.26 10 6/uL 4.20-5.40 [facility] Serum or plasma albumin/glob ulin mass ratioon 12-03-2023 Albumin/Globulin [Mass ratio] 0.9 {ratio} [facility] Basophils Auto (Bld) [#/Vol] on 11-19-2023 Basophils (Bld) [#/Vol] 0.0 10 3/uL 0.0-0.1 [facility] Basophils/100 WBC Auto (Bld) on 11-19-2023 Basophils/100 WBC (Bld) 0.3 % 0.2-2.0 [facility] Eosinophils/100 WBC Auto (Bl d)on 11-19-2023 Eosinophils/100 WBC (Bld) 1.7 % 0.9-7.0 [facility] Erythrocyte distribution wid th Auto (RBC) [Ratio]on 11-19-2023 Erythrocyte distribution width (RBC) [Ratio] 14.0 % 11.0-15.0 [facility] Estimated glomerular filtrat ion rate (GFR) non- Americanon 11-19-2023 GFR/1.73 sq M.predicted among non-blacks MDRD (S/P/Bld) [Vol rate/Area] 59 mL/min/{1.73_m2} Low >=60 [facility] Globulin Calc (S) [Mass/Vol] on 11-19-2023 Globulin (S) [Mass/Vol] 3.8 g/dL [facility] Hematocrit Auto (Bld) [Volum e fraction]on 11-19-2023 Hematocrit (Bld) [Volume fraction] 38.3 % 36.0-48.0 [facility] Hemoglobin [Mass/volume] in Bloodon 11-19-2023 Hemoglobin (Bld) [Mass/Vol] 12.2 g/dL 12.0-16.0 [facility] Laboratory - Chemistry and C hemistry - challengeon 11-19-2023 Albumin [Mass/Vol] 3.7 g/dL 3.4-5.0 [facility] ALP [Catalytic activity/Vol] 104 U/L 46-116 [facility] ALT [Catalytic activity/Vol] 24 U/L 14-59 [facility] AST [Catalytic activity/Vol] 17 U/L 15-37 [facility] Bilirubin [Mass/Vol] 0.4 mg/dL 0.2-1.0 [facility] Bilirubin.direct [Mass/Vol] 0.1 mg/dL 0.0-0.2 [facility] Creatinine [Mass/Vol] 0.94 mg/dL 0.55-1.02 [facility] GFR/1.73 sq M.predicted MDRD (S/P/Bld) [Vol rate/Area] mL/min/{1.73_m2} >=60 [facility] Protein [Mass/Vol] 7.5 g/dL 6.4-8.2 [facility] Laboratory - Hematology and Cell countson 11-19-2023 ESR (Bld) [Velocity] 22 mm/h <=30 [facility] Immature granulocytes/100 WBC (Bld) 0.2 % 0.0-0.5 [facility] Leukocytes [#/volume] correc loan for nucleated erythrocytes in Blood by Automated counon 11-19-2023 WBC corrected for nucl RBC Auto (Bld) [#/Vol] 9.3 10 3/uL 4.0-11.0 [facility] Lymphocytes Auto (Bld) [#/Vo l]on 11-19-2023 Lymphocytes (Bld) [#/Vol] 1.4 10 3/uL 1.2-3.8 [facility] Lymphocytes/100 WBC Auto (Bl d)on 11-19-2023 Lymphocytes/100 WBC (Bld) 15.3 % Low 20.5-60.0 [facility] MCH Auto (RBC) [Entitic mass ]on 11-19-2023 MCH (RBC) [Entitic mass] 27.7 pg 26.7-34.0 [facility] MCHC Auto (RBC) [Mass/Vol]on 11-19-2023 MCHC (RBC) [Mass/Vol] 31.9 g/dL 29.9-35.2 [facility] MCV Auto (RBC) [Entitic vol] on 11-19-2023 MCV (RBC) [Entitic vol] 87.0 fL 81.0-99.0 [facility] Monocytes Auto (Bld) [#/Vol] on 11-19-2023 Monocytes (Bld) [#/Vol] 0.7 10 3/uL 0.3-0.8 [facility] Monocytes/100 WBC Auto (Bld) on 11-19-2023 Monocytes/100 WBC (Bld) 7.2 % 1.7-12.0 [facility] Neutrophils Auto (Bld) [#/Vo l]on 11-19-2023 Neutrophils (Bld) [#/Vol] 7.0 10 3/uL High 1.4-6.5 [facility] Neutrophils/100 WBC Auto (Bl d)on 11-19-2023 Neutrophils/100 WBC (Bld) 75.3 % High 43.0-75.0 [facility] No Panel Informationon 11-18 Eosinophils # (Auto) 0.2 10 3/uL 0.0-0.7 [facility] Immature Granulocyte # (Auto) 0.02 10 3/uL 0.00-0.03 [facility] Platelet mean volume Auto (B ld) [Entitic vol]on 11-19-2023 Platelet mean volume (Bld) [Entitic vol] 11.4 fL 9.5-13.5 [facility] Platelets Auto (Bld) [#/Vol] on 11-19-2023 Platelets (Bld) [#/Vol] 296 10 3/uL 150-450 [facility] RBC Auto (Bld) [#/Vol]on RBC (Bld) [#/Vol] 4.40 10 6/uL 4.20-5.40 [facility] Serum or plasma albumin/glob ulin mass ratioon 11-19-2023 Albumin/Globulin [Mass ratio] 1.0 {ratio} [facility] XR chest 2V*on 09-13-2023 XR chest 2V* [facility] Main [address] [address] XRay Report Signed Patient: Lizzy Welsh MR#: [id number] : 1950 Acct:[id number] Age/Sex: 73 / F ADM Date: 09/13/23 Loc: ICXD Room: [facility]: [facility] Attending Dr: Tano Tsai MD Copies to: [...] Anny Powell M.D.09/13/2023 5:13 PM Dictation Location: [place] [address] Transcribed By: [facility] 09/13/231712 Dictated By: Anny Powell II, MD 09/13/231711 Signed By: 09/13/231712 Normal [facility] XR hand BI 2Von 09-13-2023 XR hand BI 2V [facility] [place] [address] XRay Report Signed Patient: Lizzy Welsh MR#: [id number] : 1950 Acct:[id number] Age/Sex: 73 / F ADM Date: 09/13/23 Loc: XD Room: Type: [facility] Attending Dr: Tano Tsai MD Copies to: [...] Anny Powell M.D.09/13/2023 5:21 PM Dictation Location: [place] [address] Transcribed By: [facility] 09/13/23 172 Dictated By: Anny Poewll II, MD 09/13/23 1719 Signed By: 09/13/23 1721 Normal [facility] Alanine aminotransferase [En zymatic activity/volume] in Serum or PlasmaOrdered By: Tano Tsai on 09-12-2023 ALT [Catalytic activity/Vol] 18 U/L 7-52 [facility] Albumin [Mass/volume] in Ser um or Plasma by Bromocresol green (BCG) dye binding methoOrdered By: Tano Tsai on 09-12-2023 Albumin BCG dye [Mass/Vol] 4.2 g/dL 3.5-5.7 [facility] Alkaline phosphatase [Enzyma tic activity/volume] in Serum or PlasmaOrdered By: Tano Tsai on 09-12-2023 ALP [Catalytic activity/Vol] 82 U/L 34-104 [facility] Aspartate aminotransferase [ Enzymatic activity/volume] in Serum or PlasmaOrdered By: Tano Tsai on 09-12-2023 AST [Catalytic activity/Vol] 16 U/L 13-39 [facility] Basophils Auto (Bld) [#/Vol] Ordered By: Tano Tsai on 09-12-2023 Basophils (Bld) [#/Vol] 0.1 10*3/uL 0.0-0.2 [facility] Basophils/100 WBC Auto (Bld) Ordered By: Tano Tsai on 04-24-2024 Basophils/100 WBC (Bld) 0.7 % . [facility] Bilirubin.total [Mass/volume ] in Serum or PlasmaOrdered By: Tano Tsai on 09-12-2023 Bilirubin [Mass/Vol] 0.5 mg/dL 0.3-1.0 [facility] C reactive protein [Mass/vol ume] in Serum or PlasmaOrdered By: Tano Tsai on 09-12-2023 CRP [Mass/Vol] 2.1 mg/dL 0.0-0.5 [facility] C-Reactive Proteinon 024 C-Reactive Protein 2.1 mg/dL High 0.0-0.5 [facility] Comment on above: Result Comment: PERF ORMED BY: [place] [address] PATHOLOGIST ENGRAVER [employer]OMAT[employer] VICENTE MONTEZ M.D. Performed By: #### C MP, ESR, PTH, CBC, CRP #### [facility] [address] #### HBCAB, HBSAB, HBSAG, HCV RX PCR #### [facility] , Calcium [Mass/volume] in Ser um or PlasmaOrdered By: Tano Tsai on 09-12-2023 Calcium [Mass/Vol] 9.9 mg/dL 8.6-10.3 [facility] Carbon dioxide, total [Moles /volume] in Serum or PlasmaOrdered By: Tano Tsai on 09-12-2023 CO2 [Moles/Vol] 31.5 mmol/L 21.0-31.0 [facility] Chloride [Moles/volume] in S concha or PlasmaOrdered By: Tano Tsai on 09-12-2023 Chloride [Moles/Vol] 105 mmol/L 98-107 [facility] Complete Blood Count Auto Di ffon 09-12-2023 Basophils (Bld) [#/Vol] 0.1 10*3/uL Normal 0.0-0.2 [facility] Comment on above: Performed By: #### C MP, ESR, PTH, CBC, CRP #### [facility] [address] [place] [address] #### HBCAB, HBSAB, HBSAG, HCV RX PCR #### [facility] , Basophils/100 WBC (Bld) 0.7 % Normal . [facility] Comment on above: Performed By: #### C MP, ESR, PTH, CBC, CRP #### [address] #### HBCAB, HBSAB, HBSAG, HCV RX PCR #### [facility] , Eosinophils (Bld) [#/Vol] 0.3 10*3/uL Normal 0.0-0.45 [facility] Comment on above: Performed By: #### C MP, ESR, PTH, CBC, CRP #### [address] #### HBCAB, HBSAB, HBSAG, HCV RX PCR #### [facility] , Eosinophils/100 WBC (Bld) 3.3 % Normal . [facility] Comment on above: Performed By: #### C MP, ESR, PTH, CBC, CRP #### [address] #### HBCAB, HBSAB, HBSAG, HCV RX PCR #### [facility] , Erythrocyte distribution width (RBC) [Ratio] 14.8 % Normal 11.9-15.3 [facility] Comment on above: Performed By: #### C MP, ESR, PTH, CBC, CRP #### [address] #### HBCAB, HBSAB, HBSAG, HCV RX PCR #### [facility] , Hematocrit (Bld) [Volume fraction] 40.9 % Normal 34.0-46.4 [facility] Comment on above: Performed By: #### C MP, ESR, PTH, CBC, CRP #### [place] [address] [place] #### HBCAB, HBSAB, HBSAG, HCV RX PCR #### [facility] , Hemoglobin (Bld) [Mass/Vol] 13.2 g/dL Normal 11.8-15.4 [facility] Comment on above: Performed By: #### C MP, ESR, PTH, CBC, CRP #### [address] #### HBCAB, HBSAB, HBSAG, HCV RX PCR #### [facility] , Lymphocytes (Bld) [#/Vol] 1.9 10*3/uL Normal 1.00-4.8 [facility] Comment on above: Performed By: #### C MP, ESR, PTH, CBC, CRP #### [address] #### HBCAB, HBSAB, HBSAG, HCV RX PCR #### [facility] , Lymphocytes/100 WBC (Bld) 21.1 % Normal . [facility] Comment on above: Performed By: #### C MP, ESR, PTH, CBC, CRP #### [address] #### HBCAB, HBSAB, HBSAG, HCV RX PCR #### [facility] , MCH (RBC) [Entitic mass] 27.6 pg Normal 24.7-34.3 [facility] Comment on above: Performed By: #### C MP, ESR, PTH, CBC, CRP #### [address] #### HBCAB, HBSAB, HBSAG, HCV RX PCR #### [facility] , MCV (RBC) [Entitic vol] 85.2 fL Normal 80-100 [facility] Comment on above: Performed By: #### C MP, ESR, PTH, CBC, CRP #### [address] #### HBCAB, HBSAB, HBSAG, HCV RX PCR #### [facility] , Mean Corpuscular HGB Conc 32.4 g/dL Normal 32.0-35.0 [facility] Comment on above: Performed By: #### C MP, ESR, PTH, CBC, CRP #### [address] #### HBCAB, HBSAB, HBSAG, HCV RX PCR #### [facility] , Monocytes (Bld) [#/Vol] 1.0 10*3/uL High 0.0-0.8 [facility] Comment on above: Performed By: #### C MP, ESR, PTH, CBC, CRP #### [address] #### HBCAB, HBSAB, HBSAG, HCV RX PCR #### [facility] , Monocytes/100 WBC (Bld) 10.5 % Normal . [facility] Comment on above: Performed By: #### C MP, ESR, PTH, CBC, CRP #### [address] #### HBCAB, HBSAB, HBSAG, HCV RX PCR #### [facility] , Neutrophils (Bld) [#/Vol] 5.9 10*3/uL Normal 1.8-7.7 [facility] Comment on above: Performed By: #### C MP, ESR, PTH, CBC, CRP #### [address] #### HBCAB, HBSAB, HBSAG, HCV RX PCR #### [facility] , Neutrophils/100 WBC (Bld) 64.4 % Normal . [facility] Comment on above: Performed By: #### C MP, ESR, PTH, CBC, CRP #### [address] #### HBCAB, HBSAB, HBSAG, HCV RX PCR #### [facility] , NRBC% 0.2 /100{WBC} Normal 0-0.5 [facility] Comment on above: Performed By: #### C MP, ESR, PTH, CBC, CRP #### [address] #### HBCAB, HBSAB, HBSAG, HCV RX PCR #### [facility] , Platelet mean volume (Bld) [Entitic vol] 10.3 fL Normal 6.3-10.7 [facility] Comment on above: Performed By: #### C MP, ESR, PTH, CBC, CRP #### [address] #### HBCAB, HBSAB, HBSAG, HCV RX PCR #### [facility] , Platelets (Bld) [#/Vol] 253 10*3/uL Normal 150-450 [facility] Comment on above: Performed By: #### C MP, ESR, PTH, CBC, CRP #### [address] [address] #### HBCAB, HBSAB, HBSAG, HCV RX PCR #### [facility] , RBC (Bld) [#/Vol] 4.80 10*6/uL Normal 3.60-5.00 [facility] Comment on above: Performed By: #### C MP, ESR, PTH, CBC, CRP #### [address] #### HBCAB, HBSAB, HBSAG, HCV RX PCR #### [facility] , WBC (Bld) [#/Vol] 9.2 10*3/uL Normal 3.8-11.6 [facility] Comment on above: Performed By: #### C MP, ESR, PTH, CBC, CRP #### [address] #### HBCAB, HBSAB, HBSAG, HCV RX PCR #### [facility] , Comprehensive Metabolic Pane mayur 09-12-2023 Albumin [Mass/Vol] 4.2 g/dL Normal 3.5-5.7 [facility] Comment on above: Performed By: #### C MP, ESR, PTH, CBC, CRP #### [address] #### HBCAB, HBSAB, HBSAG, HCV RX PCR #### [facility] , Albumin/Globulin [Mass ratio] 1.4 {ratio} Normal [facility] Comment on above: Performed By: #### C MP, ESR, PTH, CBC, CRP #### [address] #### HBCAB, HBSAB, HBSAG, HCV RX PCR #### [facility] , ALP [Catalytic activity/Vol] 82 U/L Normal 34-104 [facility] Comment on above: Performed By: #### C MP, ESR, PTH, CBC, CRP #### [address] #### HBCAB, HBSAB, HBSAG, HCV RX PCR #### [facility] , ALT [Catalytic activity/Vol] 18 U/L Normal 7-52 [facility] Comment on above: Performed By: #### C MP, ESR, PTH, CBC, CRP #### [address] #### HBCAB, HBSAB, HBSAG, HCV RX PCR #### [facility] , Anion gap [Moles/Vol] 9.7 mmol/L Normal 6.0-15.0 [facility] Comment on above: Performed By: #### C MP, ESR, PTH, CBC, CRP #### [place] [address] [place] #### HBCAB, HBSAB, HBSAG, HCV RX PCR #### [facility] , AST [Catalytic activity/Vol] 16 U/L Normal 13-39 [facility] Comment on above: Performed By: #### C MP, ESR, PTH, CBC, CRP #### [place] [address] [place] #### HBCAB, HBSAB, HBSAG, HCV RX PCR #### [facility] , Bilirubin [Mass/Vol] 0.5 mg/dL Normal 0.3-1.0 [facility] Comment on above: Performed By: #### C MP, ESR, PTH, CBC, CRP #### [place] [address] [place] #### HBCAB, HBSAB, HBSAG, HCV RX PCR #### [facility] , Calcium [Mass/Vol] 9.9 mg/dL Normal 8.6-10.3 [facility] Comment on above: Performed By: #### C MP, ESR, PTH, CBC, CRP #### [address] #### HBCAB, HBSAB, HBSAG, HCV RX PCR #### [facility] , Chloride [Moles/Vol] 105 mmol/L Normal 98-107 [facility] Comment on above: Performed By: #### C MP, ESR, PTH, CBC, CRP #### [address] #### HBCAB, HBSAB, HBSAG, HCV RX PCR #### [facility] , CO2 [Moles/Vol] 31.5 mmol/L High 21.0-31.0 [facility] Comment on above: Performed By: #### C MP, ESR, PTH, CBC, CRP #### [place] [address] [place] #### HBCAB, HBSAB, HBSAG, HCV RX PCR #### [facility] , Creatinine [Mass/Vol] 0.74 mg/dL Normal 0.60-1.20 [facility] Comment on above: Performed By: #### C MP, ESR, PTH, CBC, CRP #### [place] [address] [place] #### HBCAB, HBSAB, HBSAG, HCV RX PCR #### [facility] , GFR/1.73 sq M.predicted MDRD (S/P/Bld) [Vol rate/Area] mL/min/{1.73_m2} Normal [facility] Comment on above: Performed By: #### C MP, ESR, PTH, CBC, CRP #### [address] #### HBCAB, HBSAB, HBSAG, HCV RX PCR #### [facility] , Globulin (S) [Mass/Vol] 2.9 g/dL Normal [facility] Comment on above: Performed By: #### C MP, ESR, PTH, CBC, CRP #### [address] #### HBCAB, HBSAB, HBSAG, HCV RX PCR #### [facility] , Glucose [Mass/Vol] 99 mg/dL Normal 70-100 [facility] Comment on above: Result Comment: [facility] Glucose Reference Range is dependent on time and content of last meal. Glucose of more than 200 mg/dL in a nonstressed, ambulatory subject supports the diagnosis of Diabetes Mellitus. ADA recommended reference range Performed By: #### C MP, ESR, PTH, CBC, CRP #### [address] #### HBCAB, HBSAB, HBSAG, HCV RX PCR #### [facility] , Potassium [Moles/Vol] 4.2 mmol/L Normal 3.5-5.1 [facility] Comment on above: Performed By: #### C MP, ESR, PTH, CBC, CRP #### [place] [address] [place] #### HBCAB, HBSAB, HBSAG, HCV RX PCR #### [facility] , Protein [Mass/Vol] 7.1 g/dL Normal 6.4-8.9 [facility] Comment on above: Performed By: #### C MP, ESR, PTH, CBC, CRP #### [place] [address] [place] #### HBCAB, HBSAB, HBSAG, HCV RX PCR #### [facility] , Sodium [Moles/Vol] 142 mmol/L Normal 136-145 [facility] Comment on above: Performed By: #### C MP, ESR, PTH, CBC, CRP #### [facility] [address] [place] [address] [place] #### HBCAB, HBSAB, HBSAG, HCV RX PCR #### [facility] , Urea nitrogen [Mass/Vol] 28 mg/dL High 7-25 [facility] Comment on above: Performed By: #### C MP, ESR, PTH, CBC, CRP #### [place] [address] [place] #### HBCAB, HBSAB, HBSAG, HCV RX PCR #### [facility] , Creatinine [Mass/volume] in Serum or PlasmaOrdered By: Tano Tsai on 09-12-2023 Creatinine [Mass/Vol] 0.74 mg/dL 0.60-1.20 [facility] Eosinophils Auto (Bld) [#/Vo l]Ordered By: Tano Tsai on 09-12-2023 Eosinophils (Bld) [#/Vol] 0.3 10*3/uL 0.0-0.45 [facility] Eosinophils/100 WBC Auto (Bl d)Ordered By: Tano Tsai on 09-12-2023 Eosinophils/100 WBC (Bld) 3.3 % . [facility] Erythrocyte Sedimentation Ra lilo 09-12-2023 ESR (Bld) [Velocity] 26 mm/h Normal 0-29 [facility] Comment on above: Result Comment: PERF ORMED BY: [place] [address] PATHOLOGIST ENGRAVER [employer]OM[employer] VICENTE MONTEZ M.D. Performed By: #### C MP, ESR, PTH, CBC, CRP #### [place] [address] [place] #### HBCAB, HBSAB, HBSAG, HCV RX PCR #### [facility] , Erythrocyte distribution wid th Auto (RBC) [Ratio]Ordered By: Tano Tsai on 09-12-2023 Erythrocyte distribution width (RBC) [Ratio] 14.8 % 11.9-15.3 [facility] Erythrocyte sedimentation ra te by Photometric methodOrdered By: Tano Tsai on 09-12-2023 ESR Photometric method (Bld) [Velocity] 26 mm/hr 0-29 [facility] Globulin Calc (S) [Mass/Vol] Ordered By: Tano Tsai on 09-12-2023 Globulin (S) [Mass/Vol] 2.9 g/dL [facility] Glucose [Mass/volume] in Ser um or PlasmaOrdered By: Tano Tsai on 09-12-2023 Glucose [Mass/Vol] 99 mg/dL 70-100 [facility] Comment on above: ADA recommended refe rence rangeRandom Glucose Reference Range is dependent on time and content of last meal. Glucose of more than 200 mg/dL in a nonstressed, ambulatory subject supports the diagnosis of Diabetes Mellitus. Hematocrit Auto (Bld) [Volum e fraction]Ordered By: Tano Tsai on 09-12-2023 Hematocrit (Bld) [Volume fraction] 40.9 % 34.0-46.4 [facility] Hemoglobin [Mass/volume] in BloodOrdered By: Tano Tsai on 09-12-2023 Hemoglobin (Bld) [Mass/Vol] 13.2 g/dL 11.8-15.4 [facility] Hep C Ab wRfx to Qnt PCRon 0 09-12-2023 Hepatitis C Virus Antibody Non-Reactive Normal Non Reactive [facility] Comment on above: Performed By: #### C MP, ESR, PTH, CBC, CRP #### [facility] [address] #### HBCAB, HBSAB, HBSAG, HCV RX PCR #### [facility] , Interpretation Hepatitis C Normal . [facility] Comment on above: Result Comment: Not infected with HCV unless early or acute infection is suspected (which may be delayed in an immunocompromised individual), or other evidence exists to indicate HCV infection. Performed By: #### C MP, ESR, PTH, CBC, CRP #### [address] #### HBCAB, HBSAB, HBSAG, HCV RX PCR #### [facility] , Hepatitis B Core Antibodyon 09-12-2023 Hepatitis B Core Antibody Negative Normal Negative [facility] Comment on above: Result Comment: Perf ormed at: - [facility] [address] [id number] Worm Raiser: Natanael Banegas PhD, Phone: [phone] Performed By: #### C MP, ESR, PTH, CBC, CRP ####[address]#### HBCAB, HBSAB, HBSAG, HCV RX PCR ####[facility] , Hepatitis B Surface Antibody on 09-12-2023 Hepatitis B Surface Antibody Non-Reactive Normal . [facility] Comment on above: Result Comment: Non Reactive: Inconsistent with immunity, less than 10 mIU/mL Reactive: Consistent with immunity, greater than 9.9 mIU/mL Performed By: #### C MP, ESR, PTH, CBC, CRP #### [address] #### HBCAB, HBSAB, HBSAG, HCV RX PCR #### [facility] , Hepatitis B Surface Antigeno n 09-12-2023 HBsAg Screen Negative Normal Negative [facility] Comment on above: Result Comment: PERF ORMED BY: [place] [address] PATHOLOGIST ENGRAVER AUTOM[employer] VICENTE MONTEZ M.D. Performed By: #### C MP, ESR, PTH, CBC, CRP ####[address]#### HBCAB, HBSAB, HBSAG, HCV RX PCR ####[facility] , Hepatitis B virus surface Ab [Presence] in SerumOrdered By: Tano Tsai on 09-12-2023 HBV surface Ab Ql (S) Non-Reactive . [facility] Comment on above: Non Reactive: Incons istent with immunity, less than 10 mIU/mL Reactive: Consistent with immunity, greater than 9.9 mIU/mL Hepatitis B virus surface Ag [Presence] in Serum or Plasma by ImmunoassayOrdered By: Tano Tsai on 09-12-2023 HBV surface Ag IA Ql Negative Negative [facility] Hepatitis C virus IgG Ab [Pr esence] in Serum or Plasma by ImmunoassayOrdered By: Tano Tsai on 09-12-2023 HCV IgG IA Ql Non-Reactive Non Reactive [facility] Leukocytes [#/volume] correc loan for nucleated erythrocytes in Blood by Automated counOrdered By: Tano Tsai on 09-12-2023 WBC corrected for nucl RBC Auto (Bld) [#/Vol] 9.2 10*3/uL 3.8-11.6 [facility] Lymphocytes Auto (Bld) [#/Vo l]Ordered By: Tano Tsai on 09-12-2023 Lymphocytes (Bld) [#/Vol] 1.9 10*3/uL 1.00-4.8 [facility] Lymphocytes/100 WBC Auto (Bl d)Ordered By: Tano Tsai on 09-12-2023 Lymphocytes/100 WBC (Bld) 21.1 % . [facility] MCH Auto (RBC) [Entitic mass ]Ordered By: Tano Tsai on 09-12-2023 MCH (RBC) [Entitic mass] 27.6 pg 24.7-34.3 [facility] MCHC Auto (RBC) [Mass/Vol]Or dered By: Tano Tsai on 09-12-2023 MCHC (RBC) [Mass/Vol] 32.4 g/dL 32.0-35.0 [facility] MCV Auto (RBC) [Entitic vol] Ordered By: Tano Tsai on 09-12-2023 MCV (RBC) [Entitic vol] 85.2 fL 80-100 [facility] Monocytes Auto (Bld) [#/Vol] Ordered By: Tano Tsai on 09-12-2023 Monocytes (Bld) [#/Vol] 1.0 10*3/uL 0.0-0.8 [facility] Monocytes/100 WBC Auto (Bld) Ordered By: Tano Tsai on 09-12-2023 Monocytes/100 WBC (Bld) 10.5 % . [facility] Neutrophils Auto (Bld) [#/Vo l]Ordered By: Tano Tsai on 09-12-2023 Neutrophils (Bld) [#/Vol] 5.9 10*3/uL 1.8-7.7 [facility] Neutrophils/100 WBC Auto (Bl d)Ordered By: Tano Tsai on 09-12-2023 Neutrophils/100 WBC (Bld) 64.4 % . [facility] No Panel InformationOrdered By: Tano Tsai on 09-12-2023 Estimated GFR (CKD-EPI) > 60.0 mL/Min [facility] Hepatitis B Core Total Antibody Negative Negative [facility] Comment on above: Performed at: [place] [id number] Director: Natanael Banegas PhD, Phone: [phone] Hepatitis C Interpretation See comment . [facility] Comment on above: Not infected with HC V unless early or acute infection issuspected (which may be delayed in an immunocompromisedindividual), or other evidence exists to indicate HCVinfection. Pharmacy Creatinine Clearance (Chem N/A [facility] Nucleated erythrocytes [Pres ence] in Blood by Automated countOrdered By: Tano Tsai on 09-12-2023 Nucleated RBC Auto Ql (Bld) 0.2 /100{WBC} 0-0.5 [facility] Parathyrin.intact [Mass/volu me] in Serum or PlasmaOrdered By: Tano Tsai on 09-12-2023 Parathyrin.intact [Mass/Vol] 34.2 pg/mL [facility] Parathyroid Hormone Intacton 09-12-2023 Parathyroid Hormone Intact 34.2 pg/mL Normal [facility] Comment on above: Result Comment: PERF ORMED BY: [facility] [address] [place] [address] PATHOLOGIST ENGRAVER [employer] VICENTE MONTEZ M.D. Performed By: #### C MP, ESR, PTH, CBC, CRP #### [address] #### HBCAB, HBSAB, HBSAG, HCV RX PCR #### [facility] , Platelet mean volume Auto (B ld) [Entitic vol]Ordered By: Tano Tsai on 09-12-2023 Platelet mean volume (Bld) [Entitic vol] 10.3 fL 6.3-10.7 [facility] Platelets Auto (Bld) [#/Vol] Ordered By: Tano Tsai on 09-12-2023 Platelets (Bld) [#/Vol] 253 10*3/uL 150-450 [facility] Potassium [Moles/volume] in Serum or PlasmaOrdered By: Tano Tsai on 09-12-2023 Potassium [Moles/Vol] 4.2 mmol/L 3.5-5.1 [facility] Protein [Mass/volume] in Ser um or PlasmaOrdered By: Tano Tsai on 09-12-2023 Protein [Mass/Vol] 7.1 g/dL 6.4-8.9 [facility] RBC Auto (Bld) [#/Vol]Ordere d By: Tano Tsai on 09-12-2023 RBC (Bld) [#/Vol] 4.80 10*6/uL 3.60-5.00 [facility] Serum or plasma albumin/glob ulin mass ratioOrdered By: Tano Tsai on 09-12-2023 Albumin/Globulin [Mass ratio] 1.4 {ratio} [facility] Serum or plasma anion gap de terminationOrdered By: Tano Tsai on 09-12-2023 Anion gap [Moles/Vol] 9.7 mmol/L 6.0-15.0 [facility] Sodium [Moles/volume] in Ser um or PlasmaOrdered By: Tano sTai on 09-12-2023 Sodium [Moles/Vol] 142 mmol/L 136-145 [facility] Urea nitrogen [Mass/volume] in Serum or PlasmaOrdered By: Tano Tsai on 09-12-2023 Urea nitrogen [Mass/Vol] 28 mg/dL 7-25 [facility] WBC Auto (Bld) [#/Vol]Ordere d By: Tano Tsai on 09-12-2023 WBC (Bld) [#/Vol] 9.2 10*3/uL 3.8-11.6 [facility] Basophils Auto (Bld) [#/Vol] on 08-03-2023 Basophils (Bld) [#/Vol] 0.1 10 3/uL 0.0-0.1 [facility] Basophils/100 WBC Auto (Bld) on 08-03-2023 Basophils/100 WBC (Bld) 0.6 % 0.2-2.0 [facility] Eosinophils/100 WBC Auto (Bl d)on 08-03-2023 Eosinophils/100 WBC (Bld) 3.2 % 0.9-7.0 [facility] Erythrocyte distribution wid th Auto (RBC) [Ratio]on 08-03-2023 Erythrocyte distribution width (RBC) [Ratio] 13.7 % 11.0-15.0 [facility] Estimated glomerular filtrat ion rate (GFR) non- Americanon 08-03-2023 GFR/1.73 sq M.predicted among non-blacks MDRD (S/P/Bld) [Vol rate/Area] mL/min/{1.73_m2} >=60 [facility] Globulin Calc (S) [Mass/Vol] on 08-03-2023 Globulin (S) [Mass/Vol] 3.8 g/dL [facility] Hematocrit Auto (Bld) [Volum e fraction]on 08-03-2023 Hematocrit (Bld) [Volume fraction] 38.0 % 36.0-48.0 [facility] Hemoglobin [Mass/volume] in Bloodon 08-03-2023 Hemoglobin (Bld) [Mass/Vol] 11.9 g/dL 12.0-16.0 [facility] Laboratory - Chemistry and C hemistry - challengeon 08-03-2023 Albumin [Mass/Vol] 3.4 g/dL 3.4-5.0 [facility] ALP [Catalytic activity/Vol] 110 U/L 46-116 [facility] ALT [Catalytic activity/Vol] 21 U/L 14-59 [facility] AST [Catalytic activity/Vol] 18 U/L 15-37 [facility] Bilirubin [Mass/Vol] 0.3 mg/dL 0.2-1.0 [facility] Calcium [Mass/Vol] 8.8 mg/dL 8.5-10.1 [facility] Chloride [Moles/Vol] 103 mmol/L 98-107 [facility] CO2 [Moles/Vol] 32.4 mmol/L 21.0-32.0 [facility] Cobalamin (Vitamin B12) [Mass/Vol] 803.0 pg/mL 193.0-986.0 [facility] Creatinine [Mass/Vol] 0.88 mg/dL 0.55-1.02 [facility] GFR/1.73 sq M.predicted MDRD (S/P/Bld) [Vol rate/Area] mL/min/{1.73_m2} >=60 [facility] Glucose [Mass/Vol] 150 mg/dL 74-106 [facility] Potassium [Moles/Vol] 3.6 mmol/L 3.5-5.1 [facility] Protein [Mass/Vol] 7.2 g/dL 6.4-8.2 [facility] Sodium [Moles/Vol] 143 mmol/L 136-145 [facility] TSH Qn 1.282 m[IU]/L 0.358-3.740 [facility] Urea nitrogen [Mass/Vol] 26.0 mg/dL 7.0-18.0 [facility] Urea nitrogen/Creatinine [Mass ratio] 29.5 mg/mg [facility] Laboratory - Hematology and Cell countson 08-03-2023 Immature granulocytes/100 WBC (Bld) 0.3 % 0.0-0.5 [facility] Leukocytes [#/volume] correc loan for nucleated erythrocytes in Blood by Automated counon 08-03-2023 WBC corrected for nucl RBC Auto (Bld) [#/Vol] 8.8 10 3/uL 4.0-11.0 [facility] Lymphocytes Auto (Bld) [#/Vo l]on 08-03-2023 Lymphocytes (Bld) [#/Vol] 2.0 10 3/uL 1.2-3.8 [facility] Lymphocytes/100 WBC Auto (Bl d)on 08-03-2023 Lymphocytes/100 WBC (Bld) 22.7 % 20.5-60.0 [facility] MCH Auto (RBC) [Entitic mass ]on 08-03-2023 MCH (RBC) [Entitic mass] 27.5 pg 26.7-34.0 [facility] MCHC Auto (RBC) [Mass/Vol]on 08-03-2023 MCHC (RBC) [Mass/Vol] 31.3 g/dL 29.9-35.2 [facility] MCV Auto (RBC) [Entitic vol] on 08-03-2023 MCV (RBC) [Entitic vol] 87.8 fL 81.0-99.0 [facility] Monocytes Auto (Bld) [#/Vol] on 08-03-2023 Monocytes (Bld) [#/Vol] 0.9 10 3/uL 0.3-0.8 [facility] Monocytes/100 WBC Auto (Bld) on 08-03-2023 Monocytes/100 WBC (Bld) 9.9 % 1.7-12.0 [facility] Neutrophils Auto (Bld) [#/Vo l]on 08-03-2023 Neutrophils (Bld) [#/Vol] 5.6 10 3/uL 1.4-6.5 [facility] Neutrophils/100 WBC Auto (Bl d)on 08-03-2023 Neutrophils/100 WBC (Bld) 63.3 % 43.0-75.0 [facility] No Panel Informationon 08-02 C-Reactive Protein, Quantitative 1.82 mg/dL <=0.50 [facility] Eosinophils # (Auto) 0.3 10 3/uL 0.0-0.7 [facility] Immature Granulocyte # (Auto) 0.03 10 3/uL 0.00-0.03 [facility] Platelet mean volume Auto (B ld) [Entitic vol]on 08-03-2023 Platelet mean volume (Bld) [Entitic vol] 11.6 fL 9.5-13.5 [facility] Platelets Auto (Bld) [#/Vol] on 08-03-2023 Platelets (Bld) [#/Vol] 279 10 3/uL 150-450 [facility] RBC Auto (Bld) [#/Vol]on RBC (Bld) [#/Vol] 4.33 10 6/uL 4.20-5.40 [facility] Serum nuclear antibody titer on 08-03-2023 Nuclear Ab (S) [Titer] Negative . [facility] Comment on above: Negative <1:80 Borde rline 1:80 Positive >1:80ICAP nomenclature: AC-0For more information about Hep-2 cell patterns useANApatterns.org, the official website for theInternational Consensus on Antinuclear Antibody (ALFONZO)Patterns (ICAP).Performed at: [employer] [place], [place] [id number] Director: Natanael Banegas PhD, Phone: [phone] Serum or plasma albumin/glob ulin mass ratioon 08-03-2023 Albumin/Globulin [Mass ratio] 0.9 {ratio} [facility] Serum or plasma anion gap de terminationon 08-03-2023 Anion gap [Moles/Vol] 11.2 mmol/L [facility] Serum or plasma cyclic adeno sine monophosphate measurement (moles/volume)on 08-03-2023 Adenosine monophosphate.cyclic [Moles/Vol] 3 units 0-19 [facility] Comment on above: Negative <20 Weak po sitive 20 - 39 Moderate positive 40 - 59 Strong positive >59Performed at: [employer] [place], [place] [id number] Director: Natanael Banegas PhD, Phone: [phone] MR LUMBAR SPINE W AND WO CON [...] 12/20/2022 Submitting Physician: GUSTAVO LI MD Location: [facility] Other External # FINAL DIAGNOSIS A. DUODENAL POLYP, BIOPSY: -- SMALL INTESTINAL MUCOSA DEMONSTRATING DILATED LYMPHATIC VESSELS, NO DYSPLASIA IDENTIFIED. Note: Multiple deeper levels were examined. Electronically Signed Out By ANNY CHU MD/[facility] By the signature on this report, the individual or group listed as making the Final Interpretation/Diagnos is certifies that they have reviewed this case. Diagnostic interpretation performed at [facility] [id number] [place] [address]. [place] [id number] Clinical History: Physician Contact Number: [phone] Ischemic Time (A): 09:35 Fixative (A): Formalin [...] submitted in toto in one cassette. 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 Refer to note in patient chart for documentation of history and physical. Providers: Gustavo Li MD (Doctor), Sara Castillo, RN (Nurse), Maciel Ferrer, Outside Contractor Sales Referring: Gustavo Li MD Medicines: See the [...] biopsy result. 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 All rights reserved. The codes documented in this report are preliminary and upon field service coordinator review may be revised to meet current compliance requirements. Attending Participation: I personally performed the entire procedure. MD Gustavo Enamorado MD 12/12/2022 9:49:01 AM This report has been signed electronically. Number of Addenda: 0 Note Initiated On: 12/12/2022 9:15 AM Total Procedure Duration Time 0 hours 21 minutes 39 seconds [facility] Work Phone: Radiology Study observation (narrative) [facility] Work Phone: Endoscopic Ultrasound (Upper )Ordered By: Gustavo Li on 12-12-2022 [facility] Work Phone: No Panel Informationon 12-12 [employer] 219 DO Work Phone: [email or web address]} [employer] 219 DO Work Phone: [employer] 219 DO Work Phone: Order Reconciliationon 12-12 [...] day gummy Tums [address] [facility] 12-12-2022 [facility] Surgical Pathology Department Name LIZZY WELSH Pathologist: ANNY CHU MD Date of Procedure: 12/12/2022 Date Received: 12/12/2022 Date Reported 12/20/2022 Submitting Physician: GUSTAVO LI MD Location: [facility] Other External # FINAL DIAGNOSIS A. DUODENAL POLYP, BIOPSY: -- SMALL INTESTINAL MUCOSA DEMONSTRATING DILATED LYMPHATIC VESSELS, NO DYSPLASIA IDENTIFIED. Note: Multiple deeper levels were examined. Electronically Signed Out By ANNY CHU MD/[facility] By the signature on this report, the individual or group listed as making the Final Interpretation/Diagnos is certifies that they have reviewed this case. Diagnostic interpretation performed at [place] [address] Clinical History: Physician Contact Number: [phone] Ischemic Time (A): 09:35 Fixative (A): Formalin [...] submitted in toto in one cassette. mrs/12/13/2022 [facility] Department of Pathology [address] [place] [address] Normal [facility] Comment on above: Performed By: #### [facility] #### [facility] Surgical Pathology Department [address] [place] [address] Upper EUSon 12-12-2022 Upper EUS PATIENTNAME Patient Name: Lizzy Welsh EXAMDATE Procedure Date: 12/12/2022 9:15 AM PATIENTID PATIENTACCOUNTNUM PATIENTDOB Date of : 1950 ADMITTYPE Admit Type: Outpatient PATIENTROOM Site: [facility] ETHNICITY Ethnicity: Not or RACE Race: White PROVDR Attending MD: Gustavo Li MD, [id number] ENDOPROCEDURENAME Procedure: Upper EUS INDICATION Indications: Duodenal mucosal mass/polyp found on endoscopy, 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 Refer to note in patient chart for documentation of history and physical. PRIMARYPROVIDER Providers: Gustavo Li MD (Doctor), Sara Castillo RN (Nurse), Maciel Ferrer, Outside Contractor Sales EDREFPROVIDER Referring: Gustavo Li MD CURRENT_MEDS Medicines: [...] result. 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 All rights reserved. The codes documented in this report are preliminary and upon field service coordinator review may be revised to meet current compliance requirements. ATTDRPART Attending Participation: I personally performed the entire procedure. SIGNATURENAME MD Gustavo Enamorado MD SIGNATUREDATE 12/12/2022 9:49:01 AM SIGNATUREONFILEIND This report has been signed electronically. NUMADDENDA Number of Addenda: 0 INITIATEDON Note Initiated On: 12/12/2022 9:15 AM TOTPROCTIME Total Procedure Duration Time 0 hours 21 minutes 39 seconds Normal [facility] Mayur 09-28-2022 L -- ---- Specimen: [id number] Received: 09/28/22 Status: SALVADOR Enrique Num: [id number] Spec Type: Surgical Subm Dr: Niurka Oliveira MD Tissues: A Duodenum - Biopsy (DUODENUM BX) B Esophagus Biopsy (ESOPHABEAL BX) Procedures: HE/4, Gross/Micro L4/2 ---- Age/ Patient Sex Location Account Attending Physician ---- Lizzy Welsh 72/F [id number] Niurka Oliveira MD ---- SPEC NUM: [id number] RECD: 09/28/22 STATUS: SALVADOR ENRIQUE NUM: [id number] ELVA: 09/28/22- [facility] DR: Niurka Oliveira MD ENTERED: 09/28/22 [facility] DR: IDA TYPE: Surgical DEPT: S ORDERED: [...] one cassette labeled C1. ---- ---- Specimen: [id number] Received: 09/28/22102 Status: SALVADOR Enrique Num: [id number] Spec Type: Surgical Subm Dr: Niurka Oliveira MD Tissues: A Duodenum - Biopsy (DUODENUM BX) B Esophagus Biopsy (ESOPHABEAL BX) Procedures: Roxie GARCIA/Kashif L4/2 ---- Patient: Lizzy Welsh [id number] (Continued) ---- Signed (signature on file) Baylee Newton MD 09/29/22 1009 Normal [facility] ZAK - TSHon 07-19-2022 TSH 1.271 uIU/mL Normal 0.358-3.740 [facility] Comment on above: Performed By: #### D ATTSH #### [facility] [address] [address] [address] Gertrudis Peres TSH RANGE SEE BELOW Normal [facility] Comment on above: Result Comment: <0.3 4 UIU/ml HYPERTHYROID 0.34-5.60 UIU/ml EUTHYROID >5.60 UIU/ml HYPOTHYROID Performed By: #### D ATTSH #### [facility] [address] [address] [address] Gertrudis Peres ZAK - VITAMIN Don 07-19-2022 VIT D 25-OH 26.5 ng/mL Normal [facility] Comment on above: Performed By: #### D ATVITD #### [facility] [address] [address] [address] Gertrudis Peres VIT D RANGES SEE BELOW Normal [facility] Comment on above: Result Comment: <20 ng/mL Vit D deficient 20 - <30 ng/mL Vit D insufficient 30 - 100 ng/mL Vit D sufficient >100 ng/mL Potential Toxicity Performed By: #### D ATVITD #### [facility] [address] [place] [address] Dr. Gertrudis Peres MG MAMM SCREEN 3D MANDY CADon 06-13-2022 MG MAMM SCREEN 3D MANDY CAD Patient: LIZZY WELSH Exam Date: 06/13/2022 : 1950 Gender:F Ordering : DR MCKINLEY ALFARO D.O. Admission #: [id number] Family : Order #: [id number] CLICK HERE TO VIEW EXAM RADIOLOGY REPORT [...] Treatments None Family Cancers None LOCATION: [facility] BREAST COMPOSITION: Scattered areas fibroglandular density. [...] Rose M.D. on 06/14/2022 at 11:22 Normal [facility] XR DEXA BONE DENSITYon 06-13 XR [...] by: TIFFANY ROSE Date: 2022-06-13 14:55 Normal [facility] PAP ACOG PANEL 2: 30 to 65on 06-10-2022 . . Normal [facility] Comment on above: Performed By: #### 4 [id number] #### [facility] [address] [place] [address] Dr. Gertrudis Peres Age Gdln ACOG Testing Comment Normal [facility] Comment on above: Result Comment: <21 or >65 or no age provided Performed By: #### 4 [id number] #### [facility] [address] [address] [address] Gertrudis Peres DIAGNOSIS: Comment Normal [facility] Comment on above: Result Comment: NEGA TIVE FOR INTRAEPITHELIAL LESION OR MALIGNANCY. Performed By: #### 4 [id number] #### [facility] [address] [address] [address] Gertrudis Peres Methodology: Comment Normal [facility] Comment on above: Result Comment: This liquid based ThinPrep(R) pap test was screened with the use of an image guided system. Performed By: #### 4 [id number] #### [facility] [address] [address] [address] Gertrudis Peres Note: Comment Normal [facility] Comment on above: Result Comment: The Pap smear is a screening test designed to aid in the detection of premalignant and malignant conditions of the uterine cervix. It is not a diagnostic procedure and should not be used as the sole means of detecting cervical cancer. Both false-positive and false-negative reports do occur. . Performed By: #### 4 [id number] #### [facility] [address] [place] [address] Dr. Gertrudis Peres Performed by: Comment Normal [facility] Comment on above: Result Comment: [employer] (ASCP) Performed By: #### 4 [id number] #### [facility] [address] [place] [address] Dr. Gertrudis Peres Specimen adequacy: Comment Normal [facility] Comment on above: Result Comment: Sati sfactory for evaluation. Endocervical and/or squamous metaplastic cells (endocervical component) are present. Performed By: #### 4 [id number] #### [facility] [address] [place] [address] Dr. Gertrudis Peres XR HIPS MANDY 5V [...] NICANOR NAQVI Date: 2022-05-03 16:34 Normal [facility] CBC AUTO DIFFon 03-31-2022 BASO # 0.0 103/ul Normal 0.0-0.1 [facility] Comment on above: Performed By: #### C BC #### [facility] [address] [place] [address] Dr. Gertrudis Peres Basophils/100 WBC (Bld) 0.5 % Normal 0.2-2.0 [facility] Comment on above: Performed By: #### C BC #### [facility] [address] [place] [address] Dr. Gertrudis Peres EO # 0.3 103/ul Normal 0.0-0.7 [facility] Comment on above: Performed By: #### C BC #### [facility] [address] [place] [address] Dr. Gertrudis Peres Eosinophils/100 WBC (Bld) 4.3 % Normal 0.9-7.0 [facility] Comment on above: Performed By: #### C BC #### [facility] [address] [place] [address] Dr. Gertrudis Peres Erythrocyte distribution width (RBC) [Ratio] 13.2 % Normal 11.0-15.0 [facility] Comment on above: Performed By: #### C BC #### [facility] [address] [place] [address] Dr. Gertrudis Peres Hematocrit (Bld) [Volume fraction] 37.9 % Normal 36.0-48.0 [facility] Comment on above: Performed By: #### C BC #### [facility] [address] [place] [address] Dr. Gertrudis Peres Hemoglobin (Bld) [Mass/Vol] 12.7 g/dL Normal 12.0-16.0 [facility] Comment on above: Performed By: #### C BC #### [facility] [address] [place] [address] Dr. Gertrudis Peres IG # 0.02 10e3/ul Normal 0.00-0.03 [facility] Comment on above: Performed By: #### C BC #### [facility] [address] [place] [address] Dr. Gertrudis Prees IG % 0.3 % Normal 0.0-0.5 [facility] Comment on above: Performed By: #### C BC #### [facility] [address] [place] [address] Dr. Gertrudis Peres LYMPH # 1.7 103/ul Normal 1.2-3.8 [facility] Comment on above: Performed By: #### C BC #### [facility] [address] [place] [address] Dr. Gertrudis Peres Lymphocytes/100 WBC (Bld) 26.4 % Normal 20.5-60.0 [facility] Comment on above: Performed By: #### C BC #### [facility] [address] [place] [address] Dr. Gertrudis Peres MANUAL DIFF REQ NO Normal [facility] Comment on above: Performed By: #### C BC #### [facility] [address] [place] [address] Dr. Gertrudis Peres MCH (RBC) [Entitic mass] 28.6 pg Normal 26.7-34.0 [facility] Comment on above: Performed By: #### C BC #### [facility] [address] [place] [address] Dr. Gertrudis Peres MCHC (RBC) [Mass/Vol] 33.5 g/dL Normal 29.9-35.2 [facility] Comment on above: Performed By: #### C BC #### [facility] [address] [place] [address] Dr. Gertrudis Peres MCV (RBC) [Entitic vol] 85.4 fL Normal 81.0-99.0 [facility] Comment on above: Performed By: #### C BC #### [facility] [address] [place] [address] Dr. Gertrudis Peres MONO # 0.5 103/ul Normal 0.3-0.8 [facility] Comment on above: Performed By: #### C BC #### [facility] [address] [place] [address] Dr. Gertrudis Peres Monocytes/100 WBC (Bld) 8.1 % Normal 1.7-12.0 [facility] Comment on above: Performed By: #### C BC #### [facility] [address] [place] [address] Dr. Gertrudis Peres NEUT # 3.9 103/ul Normal 1.4-6.5 [facility] Comment on above: Performed By: #### C BC #### [facility] [address] [place] [address] Dr. Gertrudis Peres Neutrophils/100 WBC (Bld) 60.4 % Normal 43.0-75.0 [facility] Comment on above: Performed By: #### C BC #### [facility] [address] [place] [address] Dr. Gertrudis Peres Platelet mean volume (Bld) [Entitic vol] 11.3 fL Normal 9.5-13.5 [facility] Comment on above: Performed By: #### C BC #### [facility] [address] [place] [address] Dr. Gertrudis Peres PLT 215 103/ul Normal 150-450 [facility] Comment on above: Performed By: #### C BC #### [facility] [address] [place] [address] Dr. Gertrudis Peres RBC 4.44 106/ul Normal 4.20-5.40 [facility] Comment on above: Performed By: #### C BC #### [facility] [address] [place] [address] Dr. Gertrudis Peres WBC 6.5 103/ul Normal 4.0-11.0 [facility] Comment on above: Performed By: #### C BC #### [facility] [address] [place] [address] Dr. Gertrudis Peres PROF 14(COMP METB)on 022 Albumin [Mass/Vol] 3.7 g/dL Normal 3.4-5.0 [facility] Comment on above: Performed By: #### C MP #### [facility] [address] [place] [address] Dr. Gertrudis Peres Albumin/Globulin [Mass ratio] 1.1 {ratio} Normal [facility] Comment on above: Performed By: #### C MP #### [facility] [address] [place] [address] Dr. Gertrudis Peres ALP [Catalytic activity/Vol] 112 U/L Normal 46-116 [facility] Comment on above: Performed By: #### C MP #### [facility] [address] [place] [address] Dr. Gertrudis Peres ALT [Catalytic activity/Vol] 23 U/L Normal 14-59 [facility] Comment on above: Performed By: #### C MP #### [facility] [address] [place] [address] Dr. Gertrudis Peres Anion gap [Moles/Vol] 7.1 mmol/L Normal [facility] Comment on above: Performed By: #### C MP #### [facility] [address] [place] [address] Dr. Gertrudis Peres AST [Catalytic activity/Vol] 18 U/L Normal 15-37 [facility] Comment on above: Performed By: #### C MP #### [facility] [address] [place] [address] Dr. Gertrudis Peres Bilirubin [Mass/Vol] 0.4 mg/dL Normal 0.2-1.0 [facility] Comment on above: Performed By: #### C MP #### [facility] [address] [address] [address] Gertrudis Peres Calcium [Mass/Vol] 8.6 mg/dL Normal 8.5-10.1 [facility] Comment on above: Performed By: #### C MP #### [facility] [address] [address] [address] Gertrudis Peres Chloride [Moles/Vol] 105 mmol/L Normal 98-107 [facility] Comment on above: Performed By: #### C MP #### [facility] [address] [address] [address] Gertrudis Peres CO2 [Moles/Vol] 34.0 mmol/L Critically high 21.0-32.0 [facility] Comment on above: Performed By: #### C MP #### [facility] [address] [address] [address] Gertrudis Peres Creatinine [Mass/Vol] 0.80 mg/dL Normal 0.55-1.02 [facility] Comment on above: Performed By: #### C MP #### [facility] [address] [address] [address] Gertrudis Peres EGFR-AF BARBADIAN >60 Normal >=60 [facility] Comment on above: Performed By: #### C MP #### [facility] [address] [address] [address] Gertrudis Peres EGFR-NON AF BARBADIAN >60 Normal >=60 [facility] Comment on above: Performed By: #### C MP #### [facility] [address] [address] [address] Gertrudis Peres Globulin (S) [Mass/Vol] 3.5 g/dL Normal [facility] Comment on above: Performed By: #### C MP #### [facility] [address] [address] [address] Gertrudis Peres Glucose [Mass/Vol] 119 mg/dL Critically high 74-106 [facility] Comment on above: Performed By: #### C MP #### [facility] [address] [address] [address] Gertrudis Peres Potassium [Moles/Vol] 3.1 mmol/L Critically low 3.5-5.1 [facility] Comment on above: Performed By: #### C MP #### [facility] [address] [address] [address] Gertrudis Peres Protein [Mass/Vol] 7.2 g/dL Normal 6.4-8.2 [facility] Comment on above: Performed By: #### C MP #### [facility] [address] [address] [address] Gertrudis Peres Sodium [Moles/Vol] 143 mmol/L Normal 136-145 [facility] Comment on above: Performed By: #### C MP #### [facility] [address] [address] [address] Gertrudis Peres Urea nitrogen [Mass/Vol] 24.0 mg/dL Critically high 7.0-18.0 [facility] Comment on above: Performed By: #### C MP #### [facility] [address] [address] [address] Gertrudis Peres Urea nitrogen/Creatinine [Mass ratio] 30.0 mg/mg Normal [facility] Comment on above: Performed By: #### C MP #### [facility] [address] [address] [address] Gertrudis Peres US SINGLE QUAD UMBILon [...] TIFFANY ROSE Date: 2021-09-29 14:52 Normal [facility] CBC with Diffon 05-17-2019 Abs. Basophil 0.05 k/uL Normal 0.00-0.20 [facility] Comment on above: Performed By: #### C MPX, CDP #### [facility] [address] [place], [place] [id number] Worm Raiser: Peter Conklin MD Abs.Imm.Granulocyte <0.03 Normal 0.00-0.30 [facility] Comment on above: Performed By: #### C MPX, CDP #### [facility] [address] [place], [place] [address] Worm Raiser: Peter Conklin MD Abs.Neutrophil (Seg) 4.64 k/uL Normal 1.50-8.10 [facility] Comment on above: Performed By: #### C MPX, CDP #### [facility] [address] [place], [facility] Worm Raiser: Peter Conklin MD Basophils/100 WBC (Bld) 1 % Normal 0-2 [facility] Comment on above: Performed By: #### C MPX, CDP #### [facility] [address] [place] [address] Worm Raiser: Peter Conklin MD Eosinophils #/vol (Bld) 0.35 10*3/uL Normal 0.00-0.44 [facility] Comment on above: Performed By: #### C MPX, CDP #### [facility] [address] [place], [place] [id number] Worm Raiser: Peter Conklin MD Eosinophils/100 WBC (Bld) 4 % Normal 1-4 [facility] Comment on above: Performed By: #### C MPX, CDP #### [facility] [address] [place], [place] [id number] Worm Raiser: Peter Conklin MD Erythrocyte distribution width Ratio (RBC) 13.8 % Normal 11.8-14.4 [facility] Comment on above: Performed By: #### C MPX, CDP #### [facility] [address] [place], [facility] Worm Raiser: Peter Conklin MD Hematocrit Volume Fraction (Bld) 44.8 % Normal 36.3-47.1 [facility] Comment on above: Performed By: #### C MPX, CDP #### [facility] [address] [place], [facility] Worm Raiser: Peter Conklin MD Hemoglobin mass conc (Bld) 14.1 g/dL Normal 11.9-15.1 [facility] Comment on above: Performed By: #### C MPX, CDP #### [address] [place], [facility] Worm Raiser: Peter Conklin MD Immature granulocytes #/vol (Bld) 0 % Normal 0 [facility] Comment on above: Performed By: #### C MPX, CDP #### [address] [place], [facility]83 Worm Raiser: Peter Conklin MD Lymphocytes #/vol (Bld) 2.23 10*3/uL Normal 1.10-3.70 [facility] Comment on above: Performed By: #### C MPX, CDP #### [address] [place], [facility]83 Worm Raiser: Peter Conklin MD Lymphocytes/100 WBC (Bld) 27 % Normal 24-43 [facility] Comment on above: Performed By: #### C MPX, CDP #### [facility] [address] [place], [facility]83 Worm Raiser: Peter Conklin MD MCH Entitic mass (RBC) 27.8 pg Normal 25.2-33.5 [facility] Comment on above: Performed By: #### C MPX, CDP #### [facility] [address] [place] [id number] Worm Raiser: Peter Conklin MD MCHC mass conc (RBC) 31.5 g/dL Normal 28.4-34.8 [facility] Comment on above: Performed By: #### C MPX, CDP #### [facility] [address] [place], [place] [id number] Worm Raiser: Peter Conklin MD MCV Entitic volume (RBC) 88.4 fL Normal 82.6-102.9 [facility] Comment on above: Performed By: #### C MPX, CDP #### [facility] [address] [place], [place] [id number] Worm Raiser: Peter Conklin MD Monocytes #/vol (Bld) 0.84 10*3/uL Normal 0.10-1.20 [facility] Comment on above: Performed By: #### C MPX, CDP #### [facility] [address] [place], [place] [id number] Worm Raiser: Peter Conklin MD Monocytes/100 WBC (Bld) 10 % Normal 3-12 [facility] Comment on above: Performed By: #### C MPX, CDP #### [facility] [address] [place], [place] [id number] Worm Raiser: Peter Conklin MD Neutrophil (Seg) 58 % Normal 36-65 [facility] Comment on above: Performed By: #### C MPX, CDP #### [facility] [address] [place], [place] [id number] Worm Raiser: Peter Conklin MD NRBC Automated 0.0 per 100 WBC Normal 0.0 [facility] Comment on above: Performed By: #### C MPX, CDP #### [facility] [address] [place] [address] Worm Raiser: Peter Conklin MD Platelet mean volume Entitic volume (Bld) 11.7 fL Normal 8.1-13.5 [facility] Comment on above: Performed By: #### C MPX, CDP #### [facility] [address] [place] [address] Worm Raiser: Peter Conklin MD Platelets #/vol (Bld) 269 10*3/uL Normal 138-453 [facility] Comment on above: Performed By: #### C MPX, CDP #### [facility] [address] [place], [place] [id number] Worm Raiser: Peter Conklin MD RBC #/vol (Bld) 5.07 10*6/uL Normal 3.95-5.11 [facility] Comment on above: Performed By: #### C MPX, CDP #### [facility] [address] [place] [address] Worm Raiser: Peter Conklin MD WBC #/vol (Bld) 8.1 10*3/uL Normal 3.5-11.3 [facility] Comment on above: Performed By: #### C MPX, CDP #### [facility] [address] [place], [place] [id number] Worm Raiser: Peter Conklin MD Auto Diff Performed NOT REPORTED Normal [facility] Comment on above: Performed By: #### C MPX, CDP #### [facility] [address] [place] [address] Worm Raiser: Peter Conklin MD Platelets #/vol (Bld) NOT REPORTED Normal [facility] Comment on above: Performed By: #### C MPX, CDP #### [facility] [address] [place], [place] [id number] Worm Raiser: Peter Conklin MD RBC morphology finding Nom (Bld) NOT REPORTED Normal [facility] Comment on above: Performed By: #### C MPX, CDP #### [facility] [address] [place] [address] Worm Raiser: Peter Conklin MD WBC Morphology NOT REPORTED Normal [facility] Comment on above: Performed By: #### C MPX, CDP #### [facility] [address] [place] [address] Worm Raiser: Peter Conklin MD CT ABDOMEN PELVIS WO [...] Sushant Dobbs MD 10/04/18 Final result Normal [facility] Comp Metabolic Pr/rfx MGon 0 10-04-2018 (cont.) Normal [facility] Comment on above: Result Comment: Aver age GFR for 60-69 years old: 85 mL/min/1.73sq m Chronic Kidney Disease: <60 mL/min/1.73sq m Kidney failure: <15 mL/min/1.73sq m eGFR calculated using average adult body mass. Additional eGFR calculator available at: http://www.[employer]/multiple_crcl_2012.htm Performed By: #### C MPX, CDP #### [facility] [address] [place], [place] [id number] Worm Raiser: Peter Conklin MD Albumin mass conc 4.3 g/dL Normal 3.5-5.2 [facility] Comment on above: Performed By: #### C MPX, CDP #### [facility] [address] [place] [address] Worm Raiser: Peter Conklin MD Albumin/Globulin mass ratio 1.2 {ratio} Normal 1.0-2.5 [facility] Comment on above: Performed By: #### C MPX, CDP #### [facility] [address] [place] [address] Worm Raiser: Peter Conklin MD Alkaline Phos 184 U/L High 35-104 [facility] Comment on above: Performed By: #### C MPX, CDP #### [facility] [address] [place], [place] [id number] Worm Raiser: Peter Conklin MD ALT enzyme act/vol 16 U/L Normal 5-33 [facility] Comment on above: Performed By: #### C MPX, CDP #### [facility] [address] [place] [address] Worm Raiser: Peter Conklin MD Anion gap molar conc 13 mmol/L Normal 9-17 [facility] Comment on above: Performed By: #### C MPX, CDP #### [facility] [address] [place] [address] Worm Raiser: Peter Conklin MD AST enzyme act/vol 20 U/L Normal <32 [facility] Comment on above: Performed By: #### C MPX, CDP #### [facility] [address] [place], [place] [id number] Worm Raiser: Peter Conklin MD Bilirubin Ql (U) 0.36 mg/dL Normal 0.3-1.2 [facility] Comment on above: Performed By: #### C MPX, CDP #### [facility] [address] [place], [place] [id number] Worm Raiser: Peter Conklin MD BUN/CRE Ratio 53 High 9-20 [facility] Comment on above: Performed By: #### C MPX, CDP #### [facility] [address] [place], [place] [phone] Worm Raiser: Peter Conklin MD Calcium mass conc 9.2 mg/dL Normal 8.6-10.4 [facility] Comment on above: Performed By: #### C MPX, CDP #### [facility] [address] [place], [place] [phone] Worm Raiser: Peter Conklin MD Chloride molar conc 103 mmol/L Normal 98-107 [facility] Comment on above: Performed By: #### C MPX, CDP #### [facility] [address] [place], [place] [id number] Worm Raiser: Peter Conklin MD CO2 molar conc 25 mmol/L Normal 20-31 [facility] Comment on above: Performed By: #### C MPX, CDP #### [facility] [address] [place], [place] [phone] Worm Raiser: Peter Conklin MD Creatinine mass conc 0.60 mg/dL Normal 0.50-0.90 [facility] Comment on above: Performed By: #### C MPX, CDP #### [facility] [address] [place], [place] [id number] Worm Raiser: Peter Conklin MD GFR, Amer >60 Normal >60 [facility] Comment on above: Performed By: #### C MPX, CDP #### [facility] [address] [place], [place] [phone] Worm Raiser: Peter Conklin MD GFR,non Amer >60 Normal >60 [facility] Comment on above: Performed By: #### C MPX, CDP #### [facility] [address] [place], [place] [phone] Worm Raiser: Peter Conklin MD Glucose mass conc 123 mg/dL High 70-99 [facility] Comment on above: Performed By: #### C MPX, CDP #### [facility] [address] [place], [place] [phone] Worm Raiser: Peter Conklin MD Potassium molar conc 4.0 mmol/L Normal 3.7-5.3 [facility] Comment on above: Performed By: #### C MPX, CDP #### [facility] [address] [place], [place] [phone] Worm Raiser: Peter Conklin MD Protein mass conc 7.8 g/dL Normal 6.4-8.3 [facility] Comment on above: Performed By: #### C MPX, CDP #### [facility] [address] [place], [place] [phone] Worm Raiser: Peter Conklin MD Sodium molar conc 141 mmol/L Normal 135-144 [facility] Comment on above: Performed By: #### C MPX, CDP #### [facility] [address] [place], [place] [phone] Worm Raiser: Peter Conklin MD Staging: Normal [facility] Comment on above: Result Comment: Stag e 1: Some kidney damage normal GFR Stage 2: Mild kidney damage GFR 60-89 Stage 3: Moderate kidney damage GFR 30-59 Stage 4: Severe kidney damage GFR 15-29 Stage 5: Severe kidney damage GFR <15 ESRD - chronic treatment by dialysis or transplant Performed By: #### C MPX, CDP #### [facility] [address] [place] [address] Worm Raiser: Peter Conklin MD Urea nitrogen mass conc 32 mg/dL High 8-23 [facility] Comment on above: Performed By: #### C MPX, CDP #### [facility] [address] [place], [place] [phone] Worm Raiser: Peter Conklin MD Urinalysis, Routineon 2018 Acetoacetic Acid,Ur Negative Normal NEG [facility] Comment on above: Performed By: #### U A, UMICAO #### [address] [place], [place] [phone] Worm Raiser: Peter Conklin MD Bilirubin, SemiQt,Ur Negative Normal NEG [facility] Comment on above: Performed By: #### U A, UMICAO #### [address] [place] [address] Worm Raiser: Peter Conklin MD Color Nom (U) YELLOW Normal L [facility] Comment on above: Performed By: #### U A, UMICAO #### [facility] [address] [place], [place] [phone] Worm Raiser: Peter Conklin MD Glucose,Semi-qnt,Ur Negative Normal NEG [facility] Comment on above: Performed By: #### U A, UMICAO #### [facility] [address] [place], [place] [phone] Worm Raiser: Peter Conklin MD Hemoglobin, Ur 3+ Abnormal NEG [facility] Comment on above: Performed By: #### U A, UMICAO #### [facility] [address] [place] [address] Worm Raiser: Peter Conklin MD Leuckocyte Esterase SMALL Abnormal NEG [facility] Comment on above: Performed By: #### U A, UMICAO #### [facility] [address] [place] [address] Worm Raiser: Peter Conklin MD Nitrite,Ur Negative Normal NEG [facility] Comment on above: Performed By: #### U A, UMICAO #### [facility] [address] [place] [address] Worm Raiser: Peter Conklin MD PH,Ur 5.5 Normal 5.0-9.0 [facility] Comment on above: Performed By: #### U A, UMICAO #### [facility] [address] [place] [address] Worm Raiser: Peter Conklin MD Protein mass conc (U) TRACE Abnormal NEG [facility] Comment on above: Performed By: #### U A, UMICAO #### [facility] [address] [place], [place] [phone] Worm Raiser: Peter Conklin MD Spec. Cal[place]a,Ur >1.030 High 1.010-1.020 [facility] Comment on above: Performed By: #### U A, UMICAO #### [facility] [address] [place] [address] Worm Raiser: Peter Conklin MD Turbidity SLIGHTLY CLOUDY Abnormal CLEAR [facility] Comment on above: Performed By: #### U A, UMICAO #### [facility] [address] [place], [place] [phone] Worm Raiser: Peter Conklin MD Urobilinogen,Ur Normal Normal NORM [facility] Comment on above: Performed By: #### U A, UMICAO #### [facility] [address] [place], [place] [phone] Worm Raiser: Peter Conklin MD Comment NOT REPORTED Normal [facility] Comment on above: Performed By: #### U A, UMICAO #### [facility] [address] [place], [place] [phone] Worm Raiser: Peter Conklin MD Urinalysis,Microon 9 ----- Normal [facility] Comment on above: Performed By: #### U A, UMICAO #### [facility] [address] [place], [place] [phone] Worm Raiser: Peter Conklin MD Bacteria LM.HPF #/area (Urine sed) TRACE Abnormal [facility] Comment on above: Performed By: #### U A, UMICAO #### [facility] [address] [place], [facility] Worm Raiser: Peter Conklin MD Epithelial cells LM.HPF #/area (Urine sed) 2 TO 5 Normal 0-25 [facility] Comment on above: Performed By: #### U A, UMICAO #### [facility] [address] [place], [place] [phone] Worm Raiser: Peter Conklin MD Mucus Strands TRACE Abnormal [facility] Comment on above: Performed By: #### U A, UMICAO #### [facility] [address] [place], [place] [phone] Worm Raiser: Peter Conklin MD RBC #/vol (U) 50 TO 100 Normal 0-2 [facility] Comment on above: Performed By: #### U A, UMICAO #### [facility] [address] [place], [place] [phone] Worm Raiser: Peter Conklin MD WBC #/vol (U) 2 TO 5 Normal 0-5 [facility] Comment on above: Performed By: #### U A, UMICAO #### [facility] [address] [place] [address] Worm Raiser: Peter Conklin MD Amorphous sediment LM Ql (Urine sed) NOT REPORTED Normal NONE [facility] Comment on above: Performed By: #### U A, UMICAO #### [facility] [address] [place] [address] Worm Raiser: Peter Conklin MD Casts LM.LPF #/area (Urine sed) NOT REPORTED Normal [facility] Comment on above: Performed By: #### U A, UMICAO #### [facility] [address] [place] [address] Worm Raiser: Peter Conklin MD Crystals LM Nom (Urine sed) NOT REPORTED Normal NONE [facility] Comment on above: Performed By: #### U A, UMICAO #### [facility] [address] [place] [address] Worm Raiser: Peter Conklin MD Epithelial, Renal NOT REPORTED Normal 0 [facility] Comment on above: Performed By: #### U A, UMICAO #### [facility] [address] [place] [address] Worm Raiser: Peter Conklin MD Other Observations NOT REPORTED Normal NREQ [facility] Comment on above: Performed By: #### U A, UMICAO #### [facility] [address] [place] [address] Worm Raiser: Peter Conklin MD Trichomonas NOT REPORTED Normal NONE [facility] Comment on above: Performed By: #### U A, UMICAO #### [facility] [address] [place] [address] Worm Raiser: Peter Conklin MD Yeast LM Ql (Urine sed) NOT REPORTED Normal NONE [facility] Comment on above: Performed By: #### U A, UMICAO #### [facility] [address] [place] [address] Worm Raiser: Peter Conklin MD Vital Signs Date Time Vital Sign Value Performing Clinician Facility 01-29-2024 10:03-0400 Body height 160.02 cm [facility] 01-29-2024 10:03-0400 Body mass index (BMI) [Ratio] 37.2 kg/m2 [facility] 01-29-2024 10:03-0400 Body weight 95.36 kg [facility] 01-29-2024 10:03-0400 Diastolic blood pressure 78 mm[Hg] [facility] 01-29-2024 10:03-0400 Heart rate 61 /min [facility] 01-29-2024 10:03-0400 Respiratory rate 12 /min [facility] 01-29-2024 10:03-0400 Systolic blood pressure 139 mm[Hg] [facility] 10-30-2023 09:35-0400 Body height 160.02 cm DO Mckinley Ball Work Phone: [facility] 10-30-2023 09:35-0400 Body mass index (BMI) [Ratio] 37.3 kg/m2 DO Mckinley Ball Work Phone: [facility] 10-30-2023 09:35-0400 Body weight 95.42 kg DO Mckinley Ball Work Phone: [facility] 10-30-2023 09:35-0400 Diastolic blood pressure 89 mm[Hg] DO Mckinley Ball Work Phone: [facility] 10-30-2023 09:35-0400 Heart rate 82 /min DO Mckinley Ball Work Phone: [facility] 10-30-2023 09:35-0400 Respiratory rate 12 /min DO Mckinley Ball Work Phone: [facility] 10-30-2023 09:35-0400 Systolic blood pressure 164 mm[Hg] DO Mckinley Ball Work Phone: [facility] 10-12-2023 09:18-0400 Body height 160.02 cm DO Mckinley Ball Work Phone: [facility] 10-12-2023 09:18-0400 Body mass index (BMI) [Ratio] 37 kg/m2 DO Mckinley Ball Work Phone: [facility] 10-12-2023 09:18-0400 Body weight 94.85 kg DO Mckinley Ball Work Phone: [facility] 10-12-2023 09:18-0400 Diastolic blood pressure 77 mm[Hg] DO Mckinley Ball Work Phone: [facility] 10-12-2023 09:18-0400 Heart rate 77 /min DO Mckinley Ball Work Phone: [facility] 10-12-2023 09:18-0400 Respiratory rate 12 /min DO Mckinley Ball Work Phone: [facility] 10-12-2023 09:18-0400 Systolic blood pressure 148 mm[Hg] DO Mckinley Ball Work Phone: [facility] 07-30-2023 15:01-0400 Body height 160.02 cm DO Mckinley Ball Work Phone: [facility] 07-30-2023 15:01-0400 Body mass index (BMI) [Ratio] 36.6 kg/m2 DO Mckinley Ball Work Phone: [facility] 07-30-2023 15:01-0400 Body weight 93.66 kg DO Mckinley Ball Work Phone: [facility] 07-30-2023 15:01-0400 Diastolic blood pressure 90 mm[Hg] DO Mckinley Ball Work Phone: [facility] 07-30-2023 15:01-0400 Heart rate 75 /min DO Mckinley Ball Work Phone: [facility] 07-30-2023 15:01-0400 Systolic blood pressure 149 mm[Hg] DO Mckinley Ball Work Phone: [facility] 06-13-2023 09:00-0500 Body height 161.29 cm Mckinley Ball Other [employer] Other 06-13-2023 09:00-0500 Body mass index (BMI) [Ratio] 35.43 kg/m2 Mckinley Ball Other [employer] Other 06-13-2023 09:00-0500 Body weight 92.17 kg Mckinley Ball Other [employer] Other 06-13-2023 09:00-0500 Diastolic blood pressure 77 mm[Hg] Mckinley Ball Other [employer] Other 06-13-2023 09:00-0500 Respiratory rate 12 /min Mckinley Ball Other [employer] Other 06-13-2023 09:00-0500 Systolic blood pressure 127 mm[Hg] Mckinley Ball Other [employer] Other 05-03-2023 08:30-0500 Body height 161.29 cm Mckinley Ball Other [employer] Other 05-03-2023 08:30-0500 Body mass index (BMI) [Ratio] 35.39 kg/m2 Mckinley Ball Other [employer] Other 05-03-2023 08:30-0500 Body weight 92.08 kg Mckinley Ball Other [employer] Other 05-03-2023 08:30-0500 Diastolic blood pressure 79 mm[Hg] Mckinley Ball Other [employer] Other 05-03-2023 08:30-0500 Respiratory rate 12 /min Mckinley Ball Other [employer] Other 05-03-2023 08:30-0500 Systolic blood pressure 133 mm[Hg] Mckinley Ball Other [employer] Other 03-08-2023 09:30-0400 Body height 161.29 cm Mckinley Ball Other [employer] Other 03-08-2023 09:30-0400 Body mass index (BMI) [Ratio] 35.01 kg/m2 Mckinley Ball Other [employer] Other 03-08-2023 09:30-0400 Body weight 91.08 kg Mckinley Ball Other [employer] Other 03-08-2023 09:30-0400 Diastolic blood pressure 83 mm[Hg] Mckinley Ball Other [employer] Other 03-08-2023 09:30-0400 Respiratory rate 12 /min Mckinley Ball Other [employer] Other 03-08-2023 09:30-0400 Systolic blood pressure 134 mm[Hg] Mckinley Ball Other [employer] Other 01-04-2023 11:30-0400 Body height 161.29 cm Mckinley Ball Other [employer] Other 01-04-2023 11:30-0400 Body mass index (BMI) [Ratio] 34.69 kg/m2 Mckinley Ball Other [employer] Other 01-04-2023 11:30-0400 Body weight 90.27 kg Mckinley Ball Other [employer] Other 01-04-2023 11:30-0400 Diastolic blood pressure 81 mm[Hg] Mckinley Ball Other [employer] Other 01-04-2023 11:30-0400 Respiratory rate 12 /min Mckinley Ball Other [employer] Other 01-04-2023 11:30-0400 Systolic blood pressure 131 mm[Hg] Mckinley Ball Other [employer] Other 12-12-2022 07:50-0400 Body height 153.1 cm Gustavo Li MD Work Phone: [facility] 12-12-2022 07:50-0400 Body mass index (BMI) [Ratio] 38.4 kg/m2 Gustavo Li MD Work Phone: [facility] 12-12-2022 07:50-0400 Body weight 90 kg Gustavo Li MD Work Phone: [facility] 11-01-2022 14:30-0400 Body height 161.29 cm Keara Bullard Other [employer] Other 11-01-2022 14:30-0400 Body mass index (BMI) [Ratio] 35.22 kg/m2 Keara Bullard Other [employer] Other 11-01-2022 14:30-0400 Body weight 91.63 kg Keara Bullard Other [employer] Other 11-01-2022 14:30-0400 Diastolic blood pressure 84 mm[Hg] Keara Bullard Other [employer] Other 11-01-2022 14:30-0400 Systolic blood pressure 130 mm[Hg] Keara Bullard Other [employer] Other 09-28-2022 10:05-0400 Diastolic blood pressure 75 mm[Hg] DO Mclaughlin [employer] Work Phone: [facility] 09-28-2022 10:05-0400 Heart rate 60 /min DO Arnoldo [employer] Work Phone: [facility] 09-28-2022 10:05-0400 Respiratory rate 16 /min DO Arnoldo [employer] Work Phone: [facility] 09-28-2022 10:05-0400 SaO2% (BldA) [Mass fraction] 98 % DO Arnoldo [employer] Work Phone: [facility] 09-28-2022 10:05-0400 Systolic blood pressure 153 mm[Hg] DO Arnoldo [employer] Work Phone: [facility] 09-28-2022 07:48-0400 Body height 160.02 cm DO Arnoldo [employer] Work Phone: [facility] 09-28-2022 07:48-0400 Body temperature 98.9 [degF] DO Arnoldo [employer] Work Phone: [facility] 09-28-2022 07:48-0400 Body weight 93.89 kg DO Arnoldo [employer] Work Phone: [facility] 07-04-2022 09:30-0500 Body height 161.29 cm Mckinley Ball Other [employer] Other 07-04-2022 09:30-0500 Body mass index (BMI) [Ratio] 36.3 kg/m2 Mckinley Ball Other [employer] Other 07-04-2022 09:30-0500 Body weight 94.44 kg Mckinley Ball Other [employer] Other 07-04-2022 09:30-0500 Diastolic blood pressure 78 mm[Hg] Mckinley Ball Other [employer] Other 07-04-2022 09:30-0500 Respiratory rate 12 /min Mckinley Ball Other [employer] Other 07-04-2022 09:30-0500 Systolic blood pressure 122 mm[Hg] Mckinley Ball Other [employer] Other 03-09-2022 15:30-0400 Body height 161.29 cm Arabella Pimentelault Other [employer] Other 03-09-2022 15:30-0400 Body mass index (BMI) [Ratio] 36.79 kg/m2 Arabella Pimentelault Other [employer] Other 03-09-2022 15:30-0400 Body temperature 97.1 [degF] Arabella Hawk Other [employer] Other 03-09-2022 15:30-0400 Body weight 95.71 kg Arabella Pimentelault Other [employer] Other 03-09-2022 15:30-0400 Diastolic blood pressure 85 mm[Hg] Arabella Pimentelault Other [employer] Other 03-09-2022 15:30-0400 Respiratory rate 18 /min Arabella Hawk Other [employer] Other 03-09-2022 15:30-0400 SaO2% (BldA) [Mass fraction] 99 % Arabella Hawk Other [employer] Other 03-09-2022 15:30-0400 Systolic blood pressure 135 mm[Hg] Arabella Hawk Other [employer] Other Encounters Encounter Date Encounter Type Care Provider Facility Start: 01-29-2024 End: 01-29-2024 ambulatory [facility] Work Phone: Start: 01-29-2024 End: 01-29-2024 Patient encounter procedure [facility] Phys[facility] Work Phone: Start: 12-31-2023 Non-patient / Non-visit [facility]ician [facility] Work Phone: Start: 12-03-2023 Non-patient / Non-visit [facility] Work Phone: Start: 11-19-2023 Non-patient / Non-visit [facility] Work Phone: Start: 10-30-2023 End: 10-30-2023 ambulatory DO Mckinley Ball Work Phone: [facility] Work Phone: Start: 10-30-2023 End: 10-30-2023 Patient encounter procedure DO Mckinley Ball Work Phone: [facility]ician [facility] Work Phone: Start: 10-12-2023 End: 10-12-2023 ambulatory DO Mckinley Ball Work Phone: [facility] Work Phone: Start: 10-12-2023 End: 10-12-2023 Patient encounter procedure DO Mckinley Ball Work Phone: [facility] Work Phone: Start: 09-13-2023 End: 09-13-2023 ambulatory Mckinley Ball Facility:[facility] Start: 09-13-2023 End: 09-13-2023 ambulatory DO Mckinley Ball Work Phone: [facility] Work Phone: Start: 09-13-2023 End: 09-13-2023 Patient encounter procedure DO Mckinley Ball Work Phone: [facility] [address] Work Phone: Start: 09-12-2023 End: 09-12-2023 ambulatory Mckinley Alfaro Facility:[facility] Start: 09-12-2023 End: 09-12-2023 ambulatory DO Mckinley Alfaro Work Phone: [facility] Work Phone: Start: 09-12-2023 End: 09-12-2023 Patient encounter procedure DO Mckinley Alfaro Work Phone: [facility] [address] Work Phone: Start: 09-06-2023 End: 09-07-2023 ambulatory JIL HONG Not Available Start: 08-23-2023 End: 08-23-2023 ambulatory JIL HONG Not Available Start: 08-03-2023 Non-patient / Non-visit DO Augie Alfaro Work Phone: [facility] Work Phone: Start: 07-30-2023 End: 07-30-2023 Patient encounter procedure DO Mckinley Alfaro Work Phone: [facility] Work Phone: Start: 07-26-2023 End: 07-27-2023 ambulatory JIL HONG Not Available Start: 07-10-2023 End: 07-10-2023 ambulatory JIL HONG Not Available Start: 06-15-2023 End: 06-15-2023 ambulatory LYRIC RODRIGUEZ Not Available Start: 06-13-2023 Office outpatient vi sit 15 minutes Mckinley Alfaro [facility] Start: 06-13-2023 End: 06-14-2023 ambulatory JOHN JEROME [facility] [employer] Other Start: 06-12-2023 End: 06-12-2023 ambulatory DELL [...] Available Start: 05-22-2023 End: 05-22-2023 ambulatory RACHELLE EJTER Not Available Start: 05-18-2023 End: 05-18-2023 ambulatory Mckinley Saleem Other [employer] Other Start: 05-18-2023 Telephone encounter Mckinley Alfaro [facility] Start: 05-10-2023 End: 05-10-2023 ambulatory RACHELLE JETER Not Available Start: 05-08-2023 End: 05-08-2023 ambulatory JIL HONG Not Available Start: 05-07-2023 End: 05-08-2023 ambulatory AL SALGADO Not Available Start: 05-03-2023 End: 05-03-2023 ambulatory IVONNE RICHARDSONY [facility] [employer] Other Start: 05-03-2023 Office outpatient vi sit 15 minutes Mckinley Alfaro [facility] Start: 04-30-2023 End: 05-01-2023 ambulatory IVONNE BORREROBLEY [...] 03-08-2023 End: 03-08-2023 ambulatory Mckinley Alfaro Other [employer] Other Start: 03-08-2023 Office outpatient vi sit 15 minutes Mckinley Alfaro [facility] Start: 02-07-2023 End: 02-07-2023 ambulatory Mckinley Alfaro Other [employer] Other Start: 02-07-2023 Telephone encounter Mckinley BRYANT [facility] Start: 01-04-2023 End: 01-04-2023 ambulatory Mckinley Alfaro Other [employer] Other Start: 01-04-2023 Encounter for other preprocedural examination Mckinley Alfaro [facility] Start: 01-04-2023 Office outpatient vi sit 25 minutes Mckinley Alfaro [facility] Start: 12-21-2022 Message Mckinley chase Work Phone: [facility] a 219 DO Work Phone: Start: 12-12-2022 End: 12-12-[address] Gustavo Li Facility:[facility] Start: 12-12-2022 End: 12-12-2022 Subsequent hospital visit by physician Gustavo Li MD Work Phone: [facility] Comment on above: Polyp of stomach and duodenum Start: 11-16-2022 End: 11-16-2022 ambulatory Mckinley Alfaro Other [employer] Other Start: 11-16-2022 Telephone encounter Mckinley BRYANT G [facility] Start: 11-01-2022 End: 11-01-2022 ambulatory Keara Bullard Other [employer] Other Start: 11-01-2022 Office outpatient vi sit 15 minutes Keara Bullard [facility] Start: 09-28-2022 End: 09-28-2022 ambulatory Niurka Oliveira Facility:[facility] Start: 09-28-2022 End: 09-28-2022 Admission to [facility] day surgery center DO Arnoldo House Work Phone: [facility] Work Phone: Start: 09-28-2022 End: 09-28-2022 ambulatory DO Arnoldo House Work Phone: [facility] Work Phone: Start: 07-20-2022 End: 07-20-2022 ambulatory Mckinley Alfaro Other [employer] Other Start: 07-20-2022 Telephone encounter Mckinley Alfaro [facility] Start: 07-19-2022 End: 07-20-[address] MCKINLEY ALFARO Facility:[facility]1 Start: 07-04-2022 End: 07-04-2022 ambulatory Mckinley Alfaro Other [employer] Other Start: 07-04-2022 Office outpatient vi sit 25 minutes Mckinley Alfaro [facility] Start: 06-14-2022 End: 06-14-2022 ambulatory Arabella Arechiga Other [employer] Other Start: 06-14-2022 Telephone encounter Arabella vega [facility] Start: 06-13-2022 End: 06-14-[address] MCKINLEY ALFARO Facility:[facility] Start: 06-07-2022 End: 06-07-[address] MCKINLEY ALFARO Facility:[facility] Start: 05-03-2022 End: 05-04-[address] MCKINLEY ALFARO Facility:[facility] Start: 03-31-2022 End: 04-01-[address] MCKINLEY ALFARO Facility:[facility] Start: 03-09-2022 End: 03-09-2022 ambulatory Arabella Arechiga Other [employer] Other Start: 03-09-2022 Office outpatient vi sit 15 minutes Arabella Arechiga [facility] Start: 09-29-2021 End: 09-30-[address] MCKINLEY ALFARO Facility: Start: 10-05-2018 End: 10-05-2018 Emergency department patient visit MCKINLEY Levon SALEEM [facility] Start: 10-04-2018 End: 10-04-2018 Emergency department patient visit HARJIT COELLOCHAN [facility] Start: 09-25-2017 End: 09-26-2017 Ambulatory DEFAULT PHYSICIAN Facility:[facility] Start: 09-07-2017 End: 09-08-2017 Ambulatory DEFAULT PHYSICIAN Facility:[facility] Procedures Date Procedure Procedure Detail Performing [...] Start: 09-12-2023 Hepatitis B core antibody measurement [facility] Start: 09-12-2023 [facility] Start: 01-19-2023 Influenza vaccination Influenza Vaccine (#1) [facility] Start: 09-28-2022 [facility] Start: 2017 Pneumococcal Vaccine: 65+ Years (1 - PCV) Pneumococcal Vaccine: 65+ Years (1 - PCV) [facility] Start: 2002 Zoster Vaccines (1 of 2) Zoster Vaccines (1 of 2) [facility] Start: 1992 Screening for malignant neoplasm of breast Mammogram [facility] Start: 1974 DTaP/Tdap/Td Vaccines (1 - Tdap) DTaP/Tdap/Td Vaccines (1 - Tdap) [facility] Start: 1970 Hepatitis C screening Hepatitis C Screening [facility] Start: 1952 COVID-19 Vaccine (#1) COVID-19 Vaccine (#1) [facility] Start: 1952 Lipid panel Lipid Panel [facility] Start: 1952 Screening for malignant neoplasm of colon [facility] Start: 1952 Screening for osteoporosis Bone Density Scan [facility] Start: 1950 Yearly Adult Physical Yearly Adult Physical [facility] Comprehensive metabo lic 2000 panel - Serum or Plasma [facility] Hepatitis B virus jimenez rface Ab [Presence] in Serum [facility] Hepatitis B virus jimenez rface Ag [Presence] in Serum or Plasma by Immunoassay [facility] Hepatitis C virus Ig G Ab [Presence] in Serum or Plasma by Immunoassay [facility] MG Breast - bilatera l Screening [facility] Patient Education Esophageal Dil ation Hiatal Hernia (DC) Stomach Polyps [facility] Work Phone: Rheumatoid factor [Units/volume] in Serum or Plasma [facility] Thyroid stimulating immunoglobulins actual/normal in Serum [facility] XR Hip - left 2 Views [facility] Immunizations Immunization Date Immunization Notes Care Provider Radha gunn 01-29-2024 influenza, high dose seasonal, preservative-free [facility] 03-08-2023 influenza virus vaccine, unspecified formulation DO Mckinley Alfaro Work Phone: [facility] 03-08-2023 influenza, high dose seasonal, preservative-free Mckinley Alfaro Other [employer] Other 04-07-2022 diphtheria, tetanus toxoids and acellular pertussis vaccine, unspecified formulation Mckinley Alfaro Other [facility] 03-01-2022 influenza virus vaccine, split virus (incl. purified surface antigen) Mckinley Alfaro Other [employer] Other 03-01-2022 influenza virus vaccine, unspecified formulation DO Mckinley Alfaro Work Phone: [facility] 08-04-2019 pneumococcal conjuga te vaccine, 13 valent Mckinley Alfaro Other [facility] Payers Date Payer Category Payer Self-pay [id number] 2022 Unknown [id number] 2015 Unknown [id number] 2015 Unknown [id number] 1959 Medicare [id number] 2.16.840.1.645740.19 1959 Self-pay [id number] 1959 Unknown [id number] 2.16.840.1.377899.19 1952 Unknown [id number] 2.16.840.1.180327.3.579.2.1 73 1952 Unknown [id number] 2.16.840.1.074404.3.579.2.1 73 1952 Unknown [id number] 2.16.840.1.332482.3.579.2.5 93 1952 Unknown [id number] 2.16.840.1.759036.3.579.2.5 93 1952 Unknown [id number] 2.16.840.1.585844.3.579.2.5 93 1952 Unknown [id number] 2.16.840.1.816999.3.579.2.5 93 1952 Unknown [id number] 2.16.840.1.684254.3.579.2.5 93 1952 Unknown [id number] 2.16.840.1.242263.3.579.2.1 069 1952 Unknown [id number] 2.16.840.1.271271.3.579.2.1 259 1952 Unknown [id number] 2.16.840.1.892645.3.579.2.1 259 1952 Unknown [id number] 2.16.840.1.834266.3.579.2.1 259 1952 Unknown [id number] 2.16.840.1.652750.3.579.2.1 259 1952 Unknown [id number] 2.16.840.1.667487.3.579.2.1 259 1952 Unknown [id number] 2.16.840.1.532391.3.579.2.1 259 1952 Unknown [id number] 2.16.840.1.343993.3.579.2.1 259 1952 Unknown [id number] 2.16.840.1.064935.3.579.2.1 259 1952 Unknown [id number] 2.16.840.1.984987.3.579.2.1 259 1952 Unknown [id number] 2.16.840.1.023572.3.579.2.1 259 1952 Unknown [id number] 2.16.840.1.453376.3.579.2.1 259 1952 Unknown [id number] 2.16.840.1.601010.3.579.2.1 259 1952 Unknown [id number] 2.16.840.1.017773.3.579.2.1 259 1952 Unknown [id number] 2.16.840.1.488850.3.579.2.1 259 1952 Unknown [id number] 2.16.840.1.136598.3.579.2.1 259 1952 Unknown [id number] 2.16.840.1.641231.3.579.2.1 259 1952 Unknown [id number] 2.16.840.1.711320.3.579.2.1 259 1952 Unknown [id number] 2.16.840.1.487154.3.579.2.1 259 1952 Unknown [id number] 2.16.840.1.528917.3.579.2.1 259 1952 Unknown [id number] 2.16.840.1.484535.3.579.2.1 259 1952 Unknown [id number] 2.16.840.1.585148.3.579.2.1 259 1952 Unknown [id number] 2.16.840.1.714001.3.579.2.1 259 1952 Unknown [id number] 2.16.840.1.963759.3.579.2.1 259 1952 Unknown [id number] 2.16.840.1.678975.3.579.2.1 259 1952 Unknown [id number] 2.16.840.1.377253.3.579.2.1 259 1952 Unknown [id number] 2.16.840.1.520874.3.579.2.1 259 1952 Unknown [id number] 2.16.840.1.652132.3.579.2.1 259 1952 Unknown [id number] 2.16.840.1.266452.3.579.2.1 259 1952 Unknown [id number] 2.16.840.1.054167.3.579.2.1 259 Medicare Medicare-OP No Part B [id number] Unknown Unknown [id number] 2.16.840.1.527125.3.579.2.5 93 Unknown [id number] 2.16.840.1.729011.3.579.2.5 31 Unknown [id number] 2.16.840.1.989045.3.579.2.5 31 Unknown [id number] 2.16.840.1.869009.3.579.2.5 31 Worker's Compensation [employer] [facility] [id number] Social History Date Type Detail Facility Unknown if ever smoked [facility] [employer] Other Sex Assigned At [facility] [employer] Other Start: 09-28-2022 Tobacco smoking status OKIS Never smoked tobacco (finding) [facility] Start: 1950 Sex Assigned At Female F [facility] Tobacco smoking status [facility] Tobacco smoking consumption unknown [facility] Work Phone: Start: 1950 Sex Assigned At Not on file [facility] Work Phone: Goals Date Patient [...] Orthopedics w/ increased pain or trigger finger [employer] Other 12-14-2023 Evaluation note* Encounter Date Diagnosis [...] index [BMI] 35.0-35.9, adult (ICD-10 - Z68.35) [employer] Other 10-19-2023 Evaluation note* Encounter Date Diagnosis [...] to r/o fracture Continue Mobic and add [place] for now. Consider PT if XR negative Feb, Right hip pain (ICD-10 - M25.551) XR to determine degree of arthritis and r/o fx. ROM exercises COntinue Mobic and add [place] for now. Feb, Seborrheic dermatitis (ICD-10 - [...] index [BMI] 35.0-35.9, adult (ICD-10 - Z68.35) [employer] Other 08-17-2023 Evaluation note* Encounter Date Diagnosis [...] also instructed to stop Mobic and start [place], 7 days prior to her procedure. Dec, Gastroesophageal reflux disease with esophagitis without hemorrhage (ICD-10 - K21.00) Stable, continue medication w/o interruption Dec, Traumatic complete tear of right rotator cuff, subsequent encounter (ICD-10 - S46.011D) Scheduled for arthroscopic repair w/ Dr. Hong. 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 Refer to note in patient chart for documentation of history and physical. Providers: Gustavo Li MD (Doctor), Sara Castillo RN (Nurse), Maciel Ferrer, Outside Contractor Sales Referring: Gustavo Li MD Medicines: See the [...] biopsy result. 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 Discussed options of treatment due to pt leaving for [place] on Sunday. SHe is agreeable to kenalog [...] Oct, Right hip pain (ICD-10 - M25.551) [employer] [facility]* Encounter Date Diagnosis Assessment [...] exercise for 30 minutes, 3-5 times weekly. [employer] Other 10-20-2022 Evaluation note* Encounter Date Diagnosis [...] with primary care provider to discuss reaction. [employer] Other Evaluation [employer]No [employer] Other Evaluation note* Diagnosis Onset Date Resolution Status Dysphagia acute [facility] Work Phone: Evaluation note* Diagnosis Polyp of stomach and duodenum documented in this encounter [facility] Work Phone: Evaluation note* Diagnosis Onset Date Resolution Status Age-related osteoporosis wit hout current pathological fracture acute Dupuytren's contracture of right hand acute GERD (gastroesophageal reflux disease) acute Hypertension acute Inflammatory polyarthritis a cute Lumbar spondylosis acute Trigger finger acute Medicare annual wellness visit, subsequent noneactive Screening mammogram for breast cancer noneactive [facility] Work Phone: Evaluation note* Diagnosis Onset [...] Strain of hip and thigh acut e [facility] Work Phone: Evaluation note* Diagnosis Onset Date Resolution Status Left hip pain acute Primary osteoarthritis of hip acute Strain of hip and thigh acut e Age-related osteoporosis wit hout current pathological fracture acute Fibromyalgia acute GERD (gastroesophageal reflux disease) acute Hypertension acute Inflammatory polyarthritis a cute Lumbar spondylosis acute Trigger finger acute [facility] Work Phone: Evaluation note* Diagnosis Onset Date Resolution Status Age-related osteoporosis wit hout current pathological fracture acute Fibromyalgia acute GERD (gastroesophageal reflux disease) acute Hypertension acute Lumbar spondylosis acute Opiate analgesic use agreement exists acute Psoriatic arthritis acute [facility] Work Phone: Hisgxeb general Narrative - Reported* Type Description Date Medical History Hypertension Medical History Acid reflux Medical History Hiatal hernia Surgical History back surgery x3 Surgical History Neck Surgery Surgical History shoulder arthroscopy Surgical History hysterectomy Surgical History cholecystectomy Hospitalization History see above [employer] Other Hisjvrf general Narrative - Reported* Type Description Date Medical History Hypertension Medical History Acid reflux Medical History Hiatal hernia Surgical History back surgery x3 Surgical History Neck Surgery Surgical History shoulder arthroscopy Surgical History hysterectomy Surgical History cholecystectomy Surgical History EGD w/ bx and dilatation 09/2022 Hospitalization History see above [employer] Other Hisclns general Narrative - Reported* Type Description Date Medical History Hypertension Medical History Acid reflux Medical History Hiatal hernia Surgical History back surgery x3 Surgical History Neck Surgery Surgical History shoulder arthroscopy Surgical History hysterectomy Surgical History cholecystectomy Surgical History EGD w/ bx and dilatation 09/2022 Surgical History Right shoulder arthroscopy 02/07 23 Hospitalization History see above [employer] Other Hisoprg general Narrative - Reported* Type Description Date Medical History Hypertension Medical History Acid reflux Medical History Hiatal hernia Surgical History back surgery x3 Surgical History Neck Surgery Surgical History shoulder arthroscopy Surgical History hysterectomy Surgical History cholecystectomy Surgical History EGD w/ bx and dilatation 09/2022 Surgical History Right shoulder arthroscopy 02/07 23 Surgical History Endoscopic US 11/2022 Hospitalization History see above [employer] Other Hospital Discharge instructions Additional Instructions DISCHARGE [...] if you have any problems. -Office number [phone] Work Phone: Summary Purpose Family History [...] section and content) DATE CREATED AUTHOR 11/08/2017 [facility] DATE CREATED AUTHOR AUTHOR'S ORGANIZ ATION 10/13/2018 [facility] DATE CREATED AUTHOR AUTHOR'S ORGANIZ ATION 07/21/2022 [facility] DATE CREATED AUTHOR AUTHOR'S ORGANIZ ATION 12/21/2022 [facility] DATE CREATED AUTHOR AUTHOR'S ORGANIZ ATION 12/22/2022 [facility] DATE CREATED AUTHOR AUTHOR'S ORGANIZ ATION 09/10/2023 [facility] EP[facility] DATE CREATED AUTHOR AUTHOR'S ORGANIZ ATION 09/21/2023 [facility] REASON FOR VISIT (unrecogniz ed section and content) Reason Comments Other EGD/EUS D49.0 [id number] Care Teams (unrecognized sec tion and content) [...] Active Niurka Oliveira MD Attending Provider Active 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 [facility] [employer] provides no warranty or guarantee of the accuracy or completeness of information in this document.
[2024-02-26 13:09] LABS: Bilirubin Direct 0.2 mg/dL (0.0-0.2)
== END 2024-02-26 11:58 | disposition home or self-care (01) ==
LOC: LAB 11:57
PROVIDERS: PCP Internal Medicine; Visit Provider Internal Medicine Rheumatology
DX: L40.51 Distal interphalangeal psoriatic arthropathy (principal)
CPT/HCPCS: 36415; 82248; 85652

== ENCOUNTER 2024-03-27 11:58 | Outpatient (OUT) | payer MEDICARE, OTHER, SELFPAY ==
--- NOTE | 2024-03-27 12:01 | CT_ITS ---
The [address] [address] Patient Name: FAHEEM MUÑOZ MRN: [id number] date: 1950 Sex: F Assigned Patient Location: CT Current Patient Location: Accession/Order Number: [id number] Exam Date: 03/27/2024 12:58 Report Date: 03/31/2024 13:49 At the request of: JESSICA MONGE Procedure: CT abdomen pelvis w con EXAMINATION: CT abdomen pelvis w con HISTORY: Abdominal Pain COMPARISON: No relevant comparison available. TECHNIQUE: CT images were created with IV contrast. Axial, Coronal, and Sagittal images. Dose reduction techniques were achieved by using automated exposure control and/or adjustment of mA and/or kV according to patient size and/or use of iterative reconstruction technique. FINDINGS: LUNG BASES: No visible pulmonary or pleural disease. LIVER: Diffuse hypoattenuation the liver consistent with hepatic steatosis BILIARY: Dilated biliary tree likely related to prior cholecystectomy PANCREAS: Moderate diffuse atrophy SPLEEN: No enlargement or focal lesion. ADRENALS: No mass or enlargement. KIDNEYS: No mass, obstruction, or calcification. BOWEL/MESENTERY: Multiple bilateral cortical hypodensities likely cysts. No hydronephrosis or obstructing nephrolithiasis AORTA/VASCULAR: No aneurysm or dissection. RETROPERITONEUM: No mass or adenopathy. LYMPH NODES: No adenopathy. URINARY BLADDER: No visible focal wall thickening, lesion, or calculus. PELVIC ORGANS: Hysterectomy ABDOMINAL WALL: No mass or hernia. BONES: No bony lesion or fracture. OTHER: Negative. CT/CT abdomen pelvis w con IMPRESSION: Hepatic steatosis No acute intraperitoneal abnormality Electronically authenticated by: COBY HICKMAN Date: 03/31/2024 13:49
--- OUTSIDE RECORDS SUMMARY | 2024-03-27 12:11 | XMS_ITS | CCD ---
Author Organization [facility] Care Team Providers Care Roll Picker Name Role Phone PHYSICIAN, DEFAULT Unavailable Unavailable [...] Unavailable DO Arnoldo Nixon Primary Care Provider [phone] MD Niurka Oliveira Attending Provider Keara Bullard Unavailable [phone] Mckinley Alfaro Unavailable Dinary, Dr. Lopes [...] Unavailable Ball, DO Mckinley Primary Care Provider [phone] MD Tano Tsai Attending Provider [phone] Niurka Oliveira Attending UnavailNiurka Nichols Admitting UnavailArnoldo Sutton Primary Care Unavailable Saleem, cMkinley Primary Care Unavailable Tano Tsai Attending Unavailable Tano Tsai Admitting Unavailable Mckinley Alfaro Primary Care Unavailable Tano Tsai Attending Unavailable Tano Tsai Admitting Unavailable Allergies Allergy Classification Reported Allergen(s) Allergy Type Date of Onset Reaction(s) Facility Adhesive Tape (1 source) Adhesive Tape Substance Allergy 10-30-19 24 Redness of Skin [facility] Dihydrofolate Reductase Inhibitors (antibiotic) (1 source) Trimethoprim Drug Allergy 10-30-19 24 Unknown Reaction [facility] Nitrofurantoin (1 source) Nitrofurantoin Drug Allergy 10-30-19 24 Comment:Macrob id [facility] Penicillins (antibiotic) (1 source) Penicillins Drug Allergy 10-30-19 24 Swelling of Lip/Tongue/Thr oat [facility] Sulfonamides (antibiotic) (1 source) Sulfamethoxazole Drug Allergy 10-30-19 24 Unknown Reaction [facility] tiZANidine (1 source) tiZANidine Drug Allergy 10-30-19 24 Insomnia [facility] (6 sources) Penicillin G Drug Allergy anaphylaxis [facility] Other (1 source) Penicillin Drug Allergy 01-23-20 15 [facility] (7 sources) Adhesive Tape; Translations: [adhesive tape] Propensity to adverse reactions 02-24-20 17 Redness of Skin [facility] (8 sources) Penicillins; Translations: [Penicillins] Allergy to substance 02-24-20 17 Swelling of Lip/Tongue/Thr oat [facility] (6 sources) Adhesive Tape Drug allergy 04-19-20 16 Unknown [facility] Other (11 sources) Nitrofurantoin Drug Allergy 07-30-19 Comment:Macrob id [facility] (6 sources) Sulfamethoxazole / Trimethoprim Drug Allergy Unknown [facility] Other (6 sources) tiZANidine Comfort Pac *MUSCULOSKELETAL THERAPY AG Propensity to adverse reactions Comment:Could not sleep/rest. [facility] Other (6 sources) Substance with penicillin structure and antibacterial mechanism of action (substance) Drug allergy 04-19-20 16 Unknown [facility] Other (6 sources) Sulfamethoxazole; Translations: [sulfamethoxazole] Drug Allergy 07-30-19 24 Unknown Reaction [facility] (6 sources) tiZANidine; Translations: [tizanidine] Drug Allergy 07-30-19 24 Insomnia [facility] (6 sources) Trimethoprim; Translations: [trimethoprim] Drug Allergy 07-30-19 Unknown Reaction [facility] (1 source) Nitrofurantoin Drug Allergy 07-30-19 [facility] Repository Medications Current Medications Medication Drug Class(es) Dates Sig (Normalized) Sig (Original) atenolol 100 mg oral tablet (20 sources) [...] th every twenty-four hours Biotin Maximum Strength 05954 MCG 1 tablet Orally Once a day PRN Active take 1 tablet by romulo th every twenty-four hours Biotin Maximum Strength 63852 MCG 1 tablet Orally Once a day PRN Active Biotin Maximum Strength 52561 MCG (7 sources) take 1 tablet by romulo th once daily as needed Biotin Maximum Strength 61051 MCG 1 tablet Orally Once a day PRN Active take 1 tablet by mouth once gayla y Biotin Maximum Strength 06863 MCG 1 tablet Orally Once a day Active dimenhyDRINATE 50 mg oral tablet (14 sources) Start: 07-26-2023 take 50 mg by mouth every six hours Dimenhydrinate Active 50 MG PO Every 6 hours July 26, 2023 1:00am take 1 tablet by mouth every six hours Dramamine 50 MG 1 tablet as needed Orally every 6 hrs Active folic acid 1 mg oral tablet (2 sources) Start: 10-30-2023 take 1 mg by mouth once daily Folic Acid Active 1 MG PO Daily October 30, 2023 12:00am hydroCHLOROthiazide 25 mg oral tablet (11 sources) Thiazide Diuretic Start: 03-10-2024 take 1 tablet by mouth once daily Hydrochlorothiazide Active 0 .ROUTE .COMPLEX 90 March 10, 2024 10:41am TAKE 1 TABLET BY MOUTH EVERY DAY Start: 09-28-2022 End: 03-10-2024 take 25 mg by mouth once daily Hydrochlorothiazide Discontinued 25 MG PO Daily September 28, 2022 12:00am March 10, 2024 10:41am meloxicam 15 mg oral tablet (18 sources) Nonsteroidal Anti-inflammatory Drug Start: 01-29-2024 take 15 mg by mouth once daily Meloxicam Active 15 MG PO Daily January 29, 2024 12:00am Start: 02-23-2017 End: 07-26-2023 take 15 mg by mouth once daily Meloxicam Discontinued 15 MG PO Daily February 23, 2017 12:00am July 26, 2023 2:57pm methotrexate 2.5 mg oral tablet (2 sources) Folate Analog Metabolic Inhibitor Start: 10-30-2023 take [...] chloride 10 meq extended release oral capsule (8 sources) Start: 07-26-2023 take 10 mEq by mouth once daily Potassium Chloride Active 10 MEQ PO Daily July 26, 2023 1:00am Start: 05-17-2023 take 1 capsule by [facility] every twenty-four hours Potassium Chloride ER 10 MEQ 1 capsule with food Orally Once a day for 30 days Apr, Active predniSONE 20 mg oral tablet (1 source) Start: 06-13-2023 predniSONE 20 MG 1 tablet Orally bid w/ food x 5 days then qd w/ food x 5 days for 10 days May, Active triamcinolone acetonide 0.005 mg/mg topical ointment (18 sources) Corticosteroid Start: 07-26-2023 Triamcinolone Acetonide Active 1 APPLIC TOPICAL Twice daily July 26, 2023 1:00am Start: 03-08-2023 Triamcinolone Acetonide 0.5 % 1 application Externally Twice a day for 30 days Feb, Active Start: 11-01-2022 Kenalog-40 Oct, 40 mg 100 ml zoledronic acid 0.05 mg/ml injection (9 sources) Bisphosphonate Start: 07-26-2023 Zoledronic Drkp-Aoflrflz-Iwyro (Reclast) 5 mg/100 mL piggyback Active EACH IV As Directed July 26, 2023 1:00am Start: 05-03-2023 Reclast 5 MG/1 00ML as directed Intravenous Apr, Active Completed/Discontinued Medications Medication Drug Class(es) Dates Sig (Normalized) Sig (Original) acetaminophen 325 mg / HYDROcodone bitartrate 5 mg oral tablet (20 sources) Opioid Agonist Start: 07-26-2023 End: 01-29-2024 take 1 tablet by mouth twice daily Hydrocodone-Acetami nophen Discontinued 1 TAB PO Twice daily 60 30 October 12, 2023 December 10, 2023 6:35am start 10/11 Start: 06-13-2023 take 1 tablet [...] for pain for 7 days Feb, Active aspirin 81 mg delayed release oral tablet (7 sources) Platelet Aggregation Inhibitor, Nonsteroidal Anti-inflammatory Drug Start: 04-02-2018 End: 09-28-2022 take 1 tablet by mouth once daily Aspirin (Aspir-81) 81 mg Tablet,Delayed Release (Dr/Ec) Discontinued 81 MG PO Daily April 02, 2018 1:00am September 28, 2022 7:46am Calcium (7 sources) Phosphate Binder, Calcium Start: 09-28-2022 End: 07-26-2023 take 500 mg by mouth once daily Calcium Discontinued 500 MG PO Daily September 28, 2022 12:00am July 26, 2023 2:56pm Start: 09-28-2022 take 500 mg by mouth once gayla y Calcium Active 500 MG PO Daily September 28, 2022 12:00am Calcium Carb-Magnesium Carb,Ox (Eliud-Mag) 200 mg calcium- 100 mg Tablet,Chewable (3 sources) Start: 02-23-2017 End: 08-24-2017 take 1 [...] 7:39am calcium carbonate 750 mg chewable tablet (14 sources) Start: 09-28-2022 End: 07-26-2023 take 1 [...] 2018 8:46am cholecalciferol 0.025 mg oral tablet (7 sources) Vitamin D Start: 09-28-2022 End: 07-26-2023 take 1 tablet by mouth once daily Cholecalciferol (Vitamin D3) (Vitamin D3) 25 mcg (1,000 unit) Tablet Discontinued 25 MCG PO Daily September 28, 2022 12:00am July 26, 2023 2:56pm hydroCHLOROthiazide 12.5 mg / olmesartan medoxomil 20 mg oral tablet (7 sources) Thiazide Diuretic, Angiotensin 2 Receptor Natacha Start: 04-02-2018 End: 10-21-2018 take 1 tablet by mouth once daily Olmesartan-Hydrochl orothiazide (Benicar Hct) 20-12.5 mg Tablet Discontinued 1 TAB PO Daily April 02, 2018 1:00am October 21, 2018 8:47am hydroCHLOROthiazide 12.5 mg / valsartan 80 mg oral tablet (14 sources) Thiazide Diuretic, Angiotensin 2 Receptor Natacha [...] / neomycin 3.5 mg/ml / polymyxin b 08437 unt/ml otic solution (12 sources) Aminoglycoside Antibacterial, Polymyxin-class Antibacterial, Corticosteroid Start: 03-09-2022 Tfnexxbn-Ocpfgnyfi-DL 3.5-98490-3 4 drops into affected ear Otic Three times a day for 7 day(s) Feb, Not-Taking/PRN inulin 2000 mg chewable tablet (7 sources) Start: 09-28-2022 End: 07-26-2023 take 1 tablet by mouth once daily Inulin (Fiber Gummies) 2 gram Tablet,Chewable Discontinued 1 GM PO Daily September 28, 2022 12:00am July 26, 2023 2:56pm Magnesium (7 sources) Start: 04-08-2018 End: 10-21-2018 take 250 mg by mouth once daily Magnesium Discontinued 250 MG PO Daily April 08, 2018 1:00am October 21, 2018 8:46am Meclizine (12 sources) Antiemetic Meclizine HCl UT N Not-Taking/PRN Meclizine HCl UT N Not-Taking Meclizine HCl UT N Active methylPREDNISolone 4 mg oral tablet (20 sources) Corticosteroid Start: 03-09-2022 methylPREDNISolone 4 MG as directed Orally daily for 6 days Oct, Not-Taking/PRN Multivitamin With Minerals (Hair,Skin And Nails) Tablet (7 sources) Start: 08-24-2017 End: 10-21-2018 take 1 tablet by mouth once daily Multivitamin With Minerals (Hair,Skin And Nails) Tablet Discontinued 1 TAB PO Daily August 24, 2017 12:00am October 21, 2018 8:46am [place] 4-Jtw-Tpg-Fish Oil (Fish Oil) 1,000 mg (120 mg-180 mg) Capsule (7 sources) Start: 02-23-2017 End: 08-24-2017 take 1 capsule by mouth once daily [place] 7-Opd-Jtl-Fish Oil (Fish Oil) 1,000 mg (120 mg-180 mg) Capsule Discontinued 1 CAP PO Daily February 23, 2017 12:00am August 24, 2017 7:39am [place] Red (7 sources) Start: 04-02-2018 End: 09-28-2022 take 1 tablet by mouth once daily [place] Red Discontinued 1 TAB PO Daily April [...] Not-Taking/PRN traMADol hydrochloride 50 mg oral tablet (12 sources) Opioid Agonist Start: 09-28-2022 End: 07-26-2023 [...] Complications of surgical procedures or medical care (7 sources) Non-healing surgical wound; Translations: [Other complications [...] Translations: [Vitamin D deficiency, unspecified] Chronic Osteoarthritis (20 sources) Osteoarthritis of joint of right shoulder region; Translations: [Primary osteoarthritis, right shoulder] Chronic Osteoporosis (20 sources) Senile osteoporosis; Translations: [Age-related osteoporosis without current pathological fracture] Onset: 3 Chronic Other aftercare (2 sources) Drug therapy finding; Translations: [care home (current) use of opiate analgesic] 10-30-2023 Episodic Other aftercare (2 sources) 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; Translations: [Long-term (current) use of other medications] 01-29-2024 Episodic Other and unspecified benign neoplasm (8 sources) Benign neoplasm of stomach; Translations: [Polyp of stomach and duodenum] Episodic Other and unspecified benign neoplasm (2 sources) Polyp of stomach and duodenum; Translations: [Polyp of stomach and duodenum] Onset: 07-25-202 3 Episodic Other and unspecified benign neoplasm (1 source) Mass of digestive structure; Translations: [Polyp of stomach and duodenum] 12-21-2022 Episodic Other connective tissue disease (9 sources) Fibromyalgia; Translations: [Fibromyalgia] 10-28-2023 Episodic Other connective tissue disease (1 source) Unspecified disorder of synovium and tendon, unspecified site Episodic Other connective tissue disease (6 sources) Dupuytren's contracture; Translations: [Palmar fascial fibromatosis [Dupuytren]] 07-30-2023 Episodic Other connective tissue disease (6 sources) Triggering of digit; Translations: [Trigger finger, [...] hand] Onset: Episodic Other connective tissue disease (4 sources) Fibromyalgia; Translations: [Myalgia and myositis, unspecified] 10-30-2023 Episodic Other ear and sense organ disorders (1 source) Impacted cerumen, right ear Episodic Other gastrointestinal disorders (17 sources) Irritable bowel syndrome characterized by constipation; Translations: [Irritable bowel syndrome with constipation] 07-26-2023 Chronic Other gastrointestinal disorders (1 source) Irritable bowel syndrome with constipation Chronic Other gastrointestinal disorders (11 sources) Dysphagia; Translations: [Dysphagia, unspecified] 09-28-2022 Episodic Other gastrointestinal disorders (4 sources) Heartburn; Translations: [Heartburn] Episodic Other gastrointestinal disorders (7 sources) Constipation; Translations: [Constipation, unspecified] Episodic Other inflammatory condition of skin (6 sources) Psoriatic arthritis; Translations: [Arthropathic psoriasis, unspecified] 09-18-2023 Chronic Other inflammatory condition of skin (3 sources) Arthropathic psoriasis, unspecified; Translations: [Psoriatic arthropathy] 01-29-2024 [...] Onset: 4 Episodic Other non-traumatic joint disorders (4 sources) Hip pain; Translations: [Pain in left [...] Chronic Other nutritional; endocrine; and metabolic disorders (6 sources) Obesity caused by energy imbalance; Translations: [...] STATE] Onset: 3 Episodic Residual codes; unclassified (7 sources) Edema of left lower limb; Translations: [Localized edema] 08-24-2017 Episodic Rheumatoid arthritis and related disease (12 sources) Inflammatory polyarthropathy; Translations: [Inflammatory polyarthropathy] Chronic Spondylosis; intervertebral disc disorders; other back problems (20 sources) Lumbar spondylosis; Translations: [Spondylosis without myelopathy or radiculopathy, lumbar region] Chronic Sprains and strains (8 sources) Strain of muscle(s) and tendon(s) of the rotator cuff of right shoulder, subsequent encounter; Translations: [Strain of muscle, fascia and tendon of lower back, initial encounter] Episodic Superficial injury; contusion (5 sources) Contusion of right shoulder, initial encounter; Translations: [Contusion of left hip, initial encounter] Onset: 2 Episodic Thyroid disorders (6 sources) Hypothyroidism; Translations: [Hypothyroidism, unspecified] 07-30-2023 Chronic [...] Test Name Value Interpretation Reference Range Facility Laboratory - Chemistry and C hemistry - challengeon 02-26-2024 Bilirubin.direct [Mass/Vol] 0.2 mg/dL 0.0-0.2 [facility] No Panel Informationon 02-25 Miscellaneous Test COMMENT . [facility] Comment on above: Test Ordered: [id number] Sedimentation Rate-WestergrenSedimentation Rate-Westergren 17 mm/hr CB Reference Range: 0-40Performed at: - [facility] [id number] [place], [place] [id number] Director: Natanael Banegas PhD, Phone: [phone] Basophils Auto (Bld) [#/Vol] on 12-31-2023 Basophils (Bld) [#/Vol] 0.0 10 3/uL 0.0-0.1 [facility] Basophils/100 WBC Auto (Bld) on 12-31-2023 Basophils/100 WBC (Bld) 0.5 % 0.2-2.0 [facility] Eosinophils/100 WBC Auto (Bl d)on 12-31-2023 Eosinophils/100 WBC (Bld) 4.9 % 0.9-7.0 [facility] Erythrocyte distribution wid th Auto (RBC) [Ratio]on 12-31-2023 Erythrocyte distribution width (RBC) [Ratio] 15.1 % High 11.0-15.0 [facility] Estimated glomerular filtrat ion rate (GFR) non- Americanon 12-31-2023 GFR/1.73 sq M.predicted among non-blacks MDRD (S/P/Bld) [Vol rate/Area] 55 mL/min/{1.73_m2} Low >=60 [facility] Globulin Calc (S) [Mass/Vol] on 12-31-2023 Globulin (S) [Mass/Vol] 3.2 g/dL [facility] Hematocrit Auto (Bld) [Volum e fraction]on 12-31-2023 Hematocrit (Bld) [Volume fraction] 35.0 % Low 36.0-48.0 [facility] Hemoglobin [Mass/volume] in Bloodon 12-31-2023 Hemoglobin (Bld) [Mass/Vol] 11.4 g/dL Low 12.0-16.0 [facility] Laboratory - Chemistry and C hemistry - challengeon 12-31-2023 Albumin [Mass/Vol] 3.3 g/dL Low 3.4-5.0 [facility] ALP [Catalytic activity/Vol] 93 U/L 46-116 [facility] ALT [Catalytic activity/Vol] 31 U/L 14-59 [facility] AST [Catalytic activity/Vol] 20 U/L 15-37 [facility] Bilirubin [Mass/Vol] 0.6 mg/dL 0.2-1.[address] [facility] Bilirubin.direct [Mass/Vol] 0.1 mg/dL 0.0-0.2 [facility] Creatinine [Mass/Vol] 1.00 mg/dL 0.55-1.02 [facility] GFR/1.73 sq M.predicted MDRD (S/P/Bld) [Vol rate/Area] mL/min/{1.73_m2} >=60 [facility] Protein [Mass/Vol] 6.5 g/dL 6.4-8.2 [facility] Laboratory - Hematology and Cell countson 12-31-2023 ESR (Bld) [Velocity] 19 mm/h <=[address] [facility] Immature granulocytes/100 WBC (Bld) 0.4 % 0.0-0.5 [facility] Leukocytes [#/volume] correc loan for nucleated erythrocytes in Blood by Automated counon 12-31-2023 WBC corrected for nucl RBC Auto (Bld) [#/Vol] 5.7 10 3/uL 4.0-11.0 [facility] Lymphocytes Auto (Bld) [#/Vo l]on 12-31-2023 Lymphocytes (Bld) [#/Vol] 1.4 10 3/uL 1.2-3.8 [facility] Lymphocytes/100 WBC Auto (Bl d)on 12-31-2023 Lymphocytes/100 WBC (Bld) 24.7 % 20.5-60.0 [facility] MCH Auto (RBC) [Entitic mass ]on 12-31-2023 MCH (RBC) [Entitic mass] 29.2 pg 26.7-34.0 [facility] MCHC Auto (RBC) [Mass/Vol]on 12-31-2023 MCHC (RBC) [Mass/Vol] 32.6 g/dL 29.9-35.2 [facility] MCV Auto (RBC) [Entitic vol] on 12-31-2023 MCV (RBC) [Entitic vol] 89.5 fL 81.0-99.0 [facility] Monocytes Auto (Bld) [#/Vol] on 12-31-2023 Monocytes (Bld) [#/Vol] 0.6 10 3/uL 0.3-0.8 [facility] Monocytes/100 WBC Auto (Bld) on 12-31-2023 Monocytes/100 WBC (Bld) 10.4 % 1.7-12.0 [facility] Neutrophils Auto (Bld) [#/Vo l]on 12-31-2023 Neutrophils (Bld) [#/Vol] 3.4 10 3/uL 1.4-6.5 [facility] Neutrophils/100 WBC Auto (Bl d)on 12-31-2023 Neutrophils/100 WBC (Bld) 59.1 % 43.0-75.0 [facility] No Panel Informationon 12-30 Eosinophils # (Auto) 0.3 10 3/uL 0.0-0.7 [facility] Immature Granulocyte # (Auto) 0.02 10 3/uL 0.00-0.03 [facility] Platelet mean volume Auto (B ld) [Entitic vol]on 12-31-2023 Platelet mean volume (Bld) [Entitic vol] 11.7 fL 9.5-13.5 [facility] Platelets Auto (Bld) [#/Vol] on 12-31-2023 Platelets (Bld) [#/Vol] 228 10 3/uL 150-450 [facility] RBC Auto (Bld) [#/Vol]on RBC (Bld) [#/Vol] 3.91 10 6/uL Low 4.20-5.40 [facility] Serum or plasma albumin/glob ulin mass ratioon 12-31-2023 Albumin/Globulin [Mass ratio] 1.0 {ratio} [facility] Basophils Auto (Bld) [#/Vol] on 12-03-2023 Basophils (Bld) [#/Vol] 0.0 10 3/uL 0.0-0.1 [facility] Basophils/100 WBC Auto (Bld) on 12-03-2023 Basophils/100 WBC (Bld) 0.4 % 0.2-2.0 [facility] Eosinophils/100 WBC Auto (Bl d)on 12-03-2023 Eosinophils/100 WBC (Bld) 3.2 % 0.9-7.0 [facility] Erythrocyte distribution wid th Auto (RBC) [Ratio]on 12-03-2023 Erythrocyte distribution width (RBC) [Ratio] 14.5 % 11.0-15.0 [facility] Estimated glomerular filtrat ion rate (GFR) non- Americanon 12-03-2023 GFR/1.73 sq M.predicted among non-blacks MDRD (S/P/Bld) [Vol rate/Area] 59 mL/min/{1.73_m2} Low >=60 [facility] Globulin Calc (S) [Mass/Vol] on 12-03-2023 Globulin (S) [Mass/Vol] 3.6 g/dL [facility] Hematocrit Auto (Bld) [Volum e fraction]on 12-03-2023 Hematocrit (Bld) [Volume fraction] 37.9 % 36.0-48.0 [facility] Hemoglobin [Mass/volume] in Bloodon 12-03-2023 Hemoglobin (Bld) [Mass/Vol] 12.3 g/dL 12.0-16.0 [facility] Laboratory - Chemistry and C hemistry - challengeon 12-03-2023 Albumin [Mass/Vol] 3.4 g/dL 3.4-5.0 [facility] ALP [Catalytic activity/Vol] 95 U/L 46-116 [facility] ALT [Catalytic activity/Vol] 27 U/L 14-59 [facility] AST [Catalytic activity/Vol] 23 U/L 15-37 [facility] Bilirubin [Mass/Vol] 0.5 mg/dL 0.2-1.[address] [facility] Bilirubin.direct [Mass/Vol] 0.1 mg/dL 0.0-0.2 [facility] Creatinine [Mass/Vol] 0.94 mg/dL 0.55-1.02 [facility] GFR/1.73 sq M.predicted MDRD (S/P/Bld) [Vol rate/Area] mL/min/{1.73_m2} >=60 [facility] Protein [Mass/Vol] 7.0 g/dL 6.4-8.2 [facility] Laboratory - Hematology and Cell countson 12-03-2023 ESR (Bld) [Velocity] 22 mm/h <=[address] [facility] Immature granulocytes/100 WBC (Bld) 0.1 % 0.0-0.5 [facility] Leukocytes [#/volume] correc loan for nucleated erythrocytes in Blood by Automated counon 12-03-2023 WBC corrected for nucl RBC Auto (Bld) [#/Vol] 7.5 10 3/uL 4.0-11.0 [facility] Lymphocytes Auto (Bld) [#/Vo l]on 12-03-2023 Lymphocytes (Bld) [#/Vol] 1.6 10 3/uL 1.2-3.8 [facility] Lymphocytes/100 WBC Auto (Bl d)on 12-03-2023 Lymphocytes/100 WBC (Bld) 21.7 % 20.5-60.0 [facility] MCH Auto (RBC) [Entitic mass ]on 12-03-2023 MCH (RBC) [Entitic mass] 28.9 pg 26.7-34.0 [facility] MCHC Auto (RBC) [Mass/Vol]on 12-03-2023 MCHC (RBC) [Mass/Vol] 32.5 g/dL 29.9-35.2 [facility] MCV Auto (RBC) [Entitic vol] on 12-03-2023 MCV (RBC) [Entitic vol] 89.0 fL 81.0-99.0 [facility] Monocytes Auto (Bld) [#/Vol] on 12-03-2023 Monocytes (Bld) [#/Vol] 0.7 10 3/uL 0.3-0.8 [facility] Monocytes/100 WBC Auto (Bld) on 12-03-2023 Monocytes/100 WBC (Bld) 9.1 % 1.7-12.0 [facility] Neutrophils Auto (Bld) [#/Vo l]on 12-03-2023 Neutrophils (Bld) [#/Vol] 4.9 10 3/uL 1.4-6.5 [facility] Neutrophils/100 WBC Auto (Bl d)on 12-03-2023 Neutrophils/100 WBC (Bld) 65.5 % 43.0-75.0 [facility] No Panel Informationon 12-02 Eosinophils # (Auto) 0.2 10 3/uL 0.0-0.7 [facility] Immature Granulocyte # (Auto) 0.01 10 3/uL 0.00-0.03 [facility] Platelet mean volume Auto (B ld) [Entitic vol]on 12-03-2023 Platelet mean volume (Bld) [Entitic vol] 11.6 fL 9.5-13.5 [facility] Platelets Auto (Bld) [#/Vol] on 12-03-2023 Platelets (Bld) [#/Vol] 250 10 3/uL 150-450 [facility] RBC Auto (Bld) [#/Vol]on RBC (Bld) [#/Vol] 4.26 10 6/uL 4.20-5.40 [facility] Serum or plasma albumin/glob ulin mass ratioon 12-03-2023 Albumin/Globulin [Mass ratio] 0.9 {ratio} [facility] Basophils Auto (Bld) [#/Vol] on 11-19-2023 Basophils (Bld) [#/Vol] 0.0 10 3/uL 0.0-0.1 [facility] Basophils/100 WBC Auto (Bld) on 11-19-2023 Basophils/100 WBC (Bld) 0.3 % 0.2-2.0 [facility] Eosinophils/100 WBC Auto (Bl d)on 11-19-2023 Eosinophils/100 WBC (Bld) 1.7 % 0.9-7.0 [facility] Erythrocyte distribution wid th Auto (RBC) [Ratio]on 11-19-2023 Erythrocyte distribution width (RBC) [Ratio] 14.0 % 11.0-15.0 [facility] Estimated glomerular filtrat ion rate (GFR) non- Americanon 11-19-2023 GFR/1.73 sq M.predicted among non-blacks MDRD (S/P/Bld) [Vol rate/Area] 59 mL/min/{1.73_m2} Low >=60 [facility] Globulin Calc (S) [Mass/Vol] on 11-19-2023 Globulin (S) [Mass/Vol] 3.8 g/dL [facility] Hematocrit Auto (Bld) [Volum e fraction]on 11-19-2023 Hematocrit (Bld) [Volume fraction] 38.3 % 36.0-48.0 [facility] Hemoglobin [Mass/volume] in Bloodon 11-19-2023 Hemoglobin (Bld) [Mass/Vol] 12.2 g/dL 12.0-16.0 [facility] Laboratory - Chemistry and C hemistry - challengeon 11-19-2023 Albumin [Mass/Vol] 3.7 g/dL 3.4-5.0 [facility] ALP [Catalytic activity/Vol] 104 U/L 46-116 [facility] ALT [Catalytic activity/Vol] 24 U/L 14-59 [facility] AST [Catalytic activity/Vol] 17 U/L 15-37 [facility] Bilirubin [Mass/Vol] 0.4 mg/dL 0.2-1.[address] [facility] Bilirubin.direct [Mass/Vol] 0.1 mg/dL 0.0-0.2 [facility] Creatinine [Mass/Vol] 0.94 mg/dL 0.55-1.02 [facility] GFR/1.73 sq M.predicted MDRD (S/P/Bld) [Vol rate/Area] mL/min/{1.73_m2} >=60 [facility] Protein [Mass/Vol] 7.5 g/dL 6.4-8.2 [facility] Laboratory - Hematology and Cell countson 11-19-2023 ESR (Bld) [Velocity] 22 mm/h <=[address] [facility] Immature granulocytes/100 WBC (Bld) 0.2 % 0.0-0.5 [facility] Leukocytes [#/volume] correc loan for nucleated erythrocytes in Blood by Automated counon 11-19-2023 WBC corrected for nucl RBC Auto (Bld) [#/Vol] 9.3 10 3/uL 4.0-11.0 [facility] Lymphocytes Auto (Bld) [#/Vo l]on 11-19-2023 Lymphocytes (Bld) [#/Vol] 1.4 10 3/uL 1.2-3.8 [facility] Lymphocytes/100 WBC Auto (Bl d)on 11-19-2023 Lymphocytes/100 WBC (Bld) 15.3 % Low 20.5-60.0 [facility] MCH Auto (RBC) [Entitic mass ]on 11-19-2023 MCH (RBC) [Entitic mass] 27.7 pg 26.7-34.0 [facility] MCHC Auto (RBC) [Mass/Vol]on 11-19-2023 MCHC (RBC) [Mass/Vol] 31.9 g/dL 29.9-35.2 [facility] MCV Auto (RBC) [Entitic vol] on 11-19-2023 MCV (RBC) [Entitic vol] 87.0 fL 81.0-99.0 [facility] Monocytes Auto (Bld) [#/Vol] on 11-19-2023 Monocytes (Bld) [#/Vol] 0.7 10 3/uL 0.3-0.8 [facility] Monocytes/100 WBC Auto (Bld) on 11-19-2023 Monocytes/100 WBC (Bld) 7.2 % 1.7-12.0 [facility] Neutrophils Auto (Bld) [#/Vo l]on 11-19-2023 Neutrophils (Bld) [#/Vol] 7.0 10 3/uL High 1.4-6.5 [facility] Neutrophils/100 WBC Auto (Bl d)on 11-19-2023 Neutrophils/100 WBC (Bld) 75.3 % High 43.0-75.0 [facility] No Panel Informationon 11-18 Eosinophils # (Auto) 0.2 10 3/uL 0.0-0.7 [facility] Immature Granulocyte # (Auto) 0.02 10 3/uL 0.00-0.03 [facility] Platelet mean volume Auto (B ld) [Entitic vol]on 11-19-2023 Platelet mean volume (Bld) [Entitic vol] 11.4 fL 9.5-13.5 [facility] Platelets Auto (Bld) [#/Vol] on 11-19-2023 Platelets (Bld) [#/Vol] 296 10 3/uL 150-450 [facility] RBC Auto (Bld) [#/Vol]on RBC (Bld) [#/Vol] 4.40 10 6/uL 4.20-5.40 [facility] Serum or plasma albumin/glob ulin mass ratioon 11-19-2023 Albumin/Globulin [Mass ratio] 1.0 {ratio} [facility] XR chest 2V*on 09-13-2023 XR chest 2V* [facility] Main [address] [address] XRay Report Signed Patient: Lizzy Welsh MR#: [id number] : 1950 Acct:[id number] Age/Sex: 73 / F ADM Date: 09/13/23 Loc: ICXD Room: Type: [facility] Attending Dr: Tano Tsai MD Copies to: [...] Anny Powell M.D.09/13/2023 5:13 PM Dictation Location: [place] [address] Transcribed By: [facility] 09/13/231712 Dictated By: Anny Powell II, MD 09/13/231711 Signed By: 09/13/231712 Normal [facility] XR hand BI 2Von 09-13-2023 XR hand BI 2V [facility] Main [address] [address] XRay Report Signed Patient: Lizzy Welsh MR#: [id number] : 1950 Acct:[id number] Age/Sex: 73 / F ADM Date: 09/13/23 Loc: ICXD Room: Type: [facility] Attending Dr: Tano Tsai MD Copies to: [...] Anny Powell M.D.09/13/2023 5:21 PM Dictation Location: [place] [address] Transcribed By: [facility] 09/13/23 172 Dictated By: Anny Powell II, MD 09/13/23 1719 Signed By: 09/13/23 1721 Normal [facility] Alanine aminotransferase [En zymatic activity/volume] in Serum or PlasmaOrdered By: Tano Tsai on 09-12-2023 ALT [Catalytic activity/Vol] 18 U/L 7-52 [facility] Albumin [Mass/volume] in Ser um or Plasma by Bromocresol green (BCG) dye binding methoOrdered By: Tano Tsai on 09-12-2023 Albumin BCG dye [Mass/Vol] 4.2 g/dL 3.5-5.7 [facility] Alkaline phosphatase [Enzyma tic activity/volume] in Serum or PlasmaOrdered By: Tano Tsai on 09-12-2023 ALP [Catalytic activity/Vol] 82 U/L 34-104 [facility] Aspartate aminotransferase [ Enzymatic activity/volume] in Serum or PlasmaOrdered By: Tano Tsai on 09-12-2023 AST [Catalytic activity/Vol] 16 U/L 13-39 [facility] Basophils Auto (Bld) [#/Vol] Ordered By: Tano Tsai on 09-12-2023 Basophils (Bld) [#/Vol] 0.1 10*3/uL 0.0-0.2 [facility] Basophils/100 WBC Auto (Bld) Ordered By: Tano Tsai on 09-12-2023 Basophils/100 WBC (Bld) 0.7 % . [facility] Bilirubin.total [Mass/volume ] in Serum or PlasmaOrdered By: Tano Tsai on 09-12-2023 Bilirubin [Mass/Vol] 0.5 mg/dL 0.3-1.[address] [facility] C reactive protein [Mass/vol ume] in Serum or PlasmaOrdered By: Tano Tsai on 09-12-2023 CRP [Mass/Vol] 2.1 mg/dL 0.0-0.5 [facility] C-Reactive Proteinon 024 C-Reactive Protein 2.1 mg/dL High 0.0-0.5 [facility] Comment on above: Result Comment: PERF ORMED BY: [place] [address] PATHOLOGIST [employer] VICENTE MONTEZ M.D. Performed By: #### C MP, ESR, PTH, CBC, CRP #### [facility] [address] [place] [address] [place] #### HBCAB, HBSAB, HBSAG, HCV RX PCR #### [facility] , Calcium [Mass/volume] in Ser um or PlasmaOrdered By: Tano Tsai on 09-12-2023 Calcium [Mass/Vol] 9.9 mg/dL 8.6-10.3 [facility] Carbon dioxide, total [Moles /volume] in Serum or PlasmaOrdered By: Tano Tsai on 09-12-2023 CO2 [Moles/Vol] 31.5 mmol/L 21.0-31.0 [facility] Chloride [Moles/volume] in S concha or PlasmaOrdered By: Tano Tsai on 09-12-2023 Chloride [Moles/Vol] 105 mmol/L 98-[address] [facility] Complete Blood Count Auto Di ffon 09-12-2023 Basophils (Bld) [#/Vol] 0.1 10*3/uL Normal 0.0-0.2 [facility] Comment on above: Performed By: #### C MP, ESR, PTH, CBC, CRP #### [address] #### HBCAB, HBSAB, HBSAG, HCV RX PCR #### [facility] , Basophils/100 WBC (Bld) 0.7 % Normal . [facility] Comment on above: Performed By: #### C MP, ESR, PTH, CBC, CRP #### [address] #### HBCAB, HBSAB, HBSAG, HCV RX PCR #### [facility] , Eosinophils (Bld) [#/Vol] 0.3 10*3/uL Normal 0.0-0.45 [facility] Comment on above: Performed By: #### C MP, ESR, PTH, CBC, CRP #### [place] [address] [place] #### HBCAB, HBSAB, HBSAG, HCV RX PCR #### [facility] , Eosinophils/100 WBC (Bld) 3.3 % Normal . [facility] Comment on above: Performed By: #### C MP, ESR, PTH, CBC, CRP #### [place] [address] [place] #### HBCAB, HBSAB, HBSAG, HCV RX PCR #### [facility] , Erythrocyte distribution width (RBC) [Ratio] 14.8 % Normal 11.9-15.3 [facility] Comment on above: Performed By: #### C MP, ESR, PTH, CBC, CRP #### [address] #### HBCAB, HBSAB, HBSAG, HCV RX PCR #### [facility] , Hematocrit (Bld) [Volume fraction] 40.9 % Normal 34.0-46.4 [facility] Comment on above: Performed By: #### C MP, ESR, PTH, CBC, CRP #### [address] #### HBCAB, HBSAB, HBSAG, HCV RX PCR #### [facility] , Hemoglobin (Bld) [Mass/Vol] 13.2 g/dL Normal 11.8-15.4 [facility] Comment on above: Performed By: #### C MP, ESR, PTH, CBC, CRP #### [address] #### HBCAB, HBSAB, HBSAG, HCV RX PCR #### [facility] , Lymphocytes (Bld) [#/Vol] 1.9 10*3/uL Normal 1.00-4.8 [facility] Comment on above: Performed By: #### C MP, ESR, PTH, CBC, CRP #### [address] #### HBCAB, HBSAB, HBSAG, HCV RX PCR #### [facility] , Lymphocytes/100 WBC (Bld) 21.1 % Normal . [facility] Comment on above: Performed By: #### C MP, ESR, PTH, CBC, CRP #### [address] #### HBCAB, HBSAB, HBSAG, HCV RX PCR #### [facility] , MCH (RBC) [Entitic mass] 27.6 pg Normal 24.7-34.3 [facility] Comment on above: Performed By: #### C MP, ESR, PTH, CBC, CRP #### [address] #### HBCAB, HBSAB, HBSAG, HCV RX PCR #### [facility] , MCV (RBC) [Entitic vol] 85.2 fL Normal 80-100 [facility] Comment on above: Performed By: #### C MP, ESR, PTH, CBC, CRP #### [address] #### HBCAB, HBSAB, HBSAG, HCV RX PCR #### [facility] , Mean Corpuscular HGB Conc 32.4 g/dL Normal 32.0-35.0 [facility] Comment on above: Performed By: #### C MP, ESR, PTH, CBC, CRP #### [address] #### HBCAB, HBSAB, HBSAG, HCV RX PCR #### [facility] , Monocytes (Bld) [#/Vol] 1.0 10*3/uL High 0.0-0.8 [facility] Comment on above: Performed By: #### C MP, ESR, PTH, CBC, CRP #### [address] #### HBCAB, HBSAB, HBSAG, HCV RX PCR #### [facility] , Monocytes/100 WBC (Bld) 10.5 % Normal . [facility] Comment on above: Performed By: #### C MP, ESR, PTH, CBC, CRP #### [place] [address] [place] #### HBCAB, HBSAB, HBSAG, HCV RX PCR #### [facility] , Neutrophils (Bld) [#/Vol] 5.9 10*3/uL Normal 1.8-7.7 [facility] Comment on above: Performed By: #### C MP, ESR, PTH, CBC, CRP #### [address] #### HBCAB, HBSAB, HBSAG, HCV RX PCR #### [facility] , Neutrophils/100 WBC (Bld) 64.4 % Normal . [facility] Comment on above: Performed By: #### C MP, ESR, PTH, CBC, CRP #### [place] [address] [place] #### HBCAB, HBSAB, HBSAG, HCV RX PCR #### [facility] , NRBC% 0.2 /100{WBC} Normal 0-0.5 [facility] Comment on above: Performed By: #### C MP, ESR, PTH, CBC, CRP #### [address] #### HBCAB, HBSAB, HBSAG, HCV RX PCR #### [facility] , Platelet mean volume (Bld) [Entitic vol] 10.3 fL Normal 6.3-10.7 [facility] Comment on above: Performed By: #### C MP, ESR, PTH, CBC, CRP #### [address] #### HBCAB, HBSAB, HBSAG, HCV RX PCR #### [facility] , Platelets (Bld) [#/Vol] 253 10*3/uL Normal 150-450 [facility] Comment on above: Performed By: #### C MP, ESR, PTH, CBC, CRP #### [place] [address] [place] #### HBCAB, HBSAB, HBSAG, HCV RX PCR #### [facility] , RBC (Bld) [#/Vol] 4.80 10*6/uL Normal 3.60-5.00 [facility] Comment on above: Performed By: #### C MP, ESR, PTH, CBC, CRP #### [place] [address] [place] #### HBCAB, HBSAB, HBSAG, HCV RX PCR #### [facility] , WBC (Bld) [#/Vol] 9.2 10*3/uL Normal 3.8-11.6 [facility] Comment on above: Performed By: #### C MP, ESR, PTH, CBC, CRP #### [address] #### HBCAB, HBSAB, HBSAG, HCV RX PCR #### [facility] , Comprehensive Metabolic Pane mayur 09-12-2023 Albumin [Mass/Vol] 4.2 g/dL Normal 3.5-5.7 [facility] Comment on above: Performed By: #### C MP, ESR, PTH, CBC, CRP #### [address] #### HBCAB, HBSAB, HBSAG, HCV RX PCR #### [facility] , Albumin/Globulin [Mass ratio] 1.4 {ratio} Normal [facility] Comment on above: Performed By: #### C MP, ESR, PTH, CBC, CRP #### [address] #### HBCAB, HBSAB, HBSAG, HCV RX PCR #### [facility] , ALP [Catalytic activity/Vol] 82 U/L Normal 34-104 [facility] Comment on above: Performed By: #### C MP, ESR, PTH, CBC, CRP #### [address] #### HBCAB, HBSAB, HBSAG, HCV RX PCR #### [facility] , ALT [Catalytic activity/Vol] 18 U/L Normal 7-52 [facility] Comment on above: Performed By: #### C MP, ESR, PTH, CBC, CRP #### [address] #### HBCAB, HBSAB, HBSAG, HCV RX PCR #### [facility] , Anion gap [Moles/Vol] 9.7 mmol/L Normal 6.0-15.0 [facility] Comment on above: Performed By: #### C MP, ESR, PTH, CBC, CRP #### [address] #### HBCAB, HBSAB, HBSAG, HCV RX PCR #### [facility] , AST [Catalytic activity/Vol] 16 U/L Normal 13-39 [facility] Comment on above: Performed By: #### C MP, ESR, PTH, CBC, CRP #### [address] #### HBCAB, HBSAB, HBSAG, HCV RX PCR #### [facility] , Bilirubin [Mass/Vol] 0.5 mg/dL Normal 0.3-1.0 [facility] Comment on above: Performed By: #### C MP, ESR, PTH, CBC, CRP #### [address] #### HBCAB, HBSAB, HBSAG, HCV RX PCR #### [facility] , Calcium [Mass/Vol] 9.9 mg/dL Normal 8.6-10.3 [facility] Comment on above: Performed By: #### C MP, ESR, PTH, CBC, CRP #### [address] #### HBCAB, HBSAB, HBSAG, HCV RX PCR #### [facility] , Chloride [Moles/Vol] 105 mmol/L Normal 98-107 [facility] Comment on above: Performed By: #### C MP, ESR, PTH, CBC, CRP #### [address] #### HBCAB, HBSAB, HBSAG, HCV RX PCR #### [facility] , CO2 [Moles/Vol] 31.5 mmol/L High 21.0-31.0 [facility] Comment on above: Performed By: #### C MP, ESR, PTH, CBC, CRP #### [place] [address] [place] #### HBCAB, HBSAB, HBSAG, HCV RX PCR #### [facility] , Creatinine [Mass/Vol] 0.74 mg/dL Normal 0.60-1.20 [facility] Comment on above: Performed By: #### C MP, ESR, PTH, CBC, CRP #### [address] #### HBCAB, HBSAB, HBSAG, HCV RX PCR #### [facility] , GFR/1.73 sq M.predicted MDRD (S/P/Bld) [Vol rate/Area] mL/min/{1.73_m2} Normal [facility] Comment on above: Performed By: #### C MP, ESR, PTH, CBC, CRP #### [address] #### HBCAB, HBSAB, HBSAG, HCV RX PCR #### [facility] , Globulin (S) [Mass/Vol] 2.9 g/dL Normal T [facility] Comment on above: Performed By: #### C MP, ESR, PTH, CBC, CRP #### [address] #### HBCAB, HBSAB, HBSAG, HCV RX PCR #### [facility] , Glucose [Mass/Vol] 99 mg/dL Normal 70-100 [facility] Comment on above: Result Comment: [place] Glucose Reference Range is dependent on time and content of last meal. Glucose of more than 200 mg/dL in a nonstressed, ambulatory subject supports the diagnosis of Diabetes Mellitus. ADA recommended reference range Performed By: #### C MP, ESR, PTH, CBC, CRP #### [place] [address] [place] #### HBCAB, HBSAB, HBSAG, HCV RX PCR #### [facility] , Potassium [Moles/Vol] 4.2 mmol/L Normal 3.5-5.1 [facility] Comment on above: Performed By: #### C MP, ESR, PTH, CBC, CRP #### [place] [address] [place] #### HBCAB, HBSAB, HBSAG, HCV RX PCR #### [facility] , Protein [Mass/Vol] 7.1 g/dL Normal 6.4-8.9 [facility] Comment on above: Performed By: #### C MP, ESR, PTH, CBC, CRP #### [facility] [address] [place] [address] [place] #### HBCAB, HBSAB, HBSAG, HCV RX PCR #### [facility] , Sodium [Moles/Vol] 142 mmol/L Normal 136-145 [facility] Comment on above: Performed By: #### C MP, ESR, PTH, CBC, CRP #### [place] [address] [place] #### HBCAB, HBSAB, HBSAG, HCV RX PCR #### [facility] , Urea nitrogen [Mass/Vol] 28 mg/dL High 7-25 [facility] Comment on above: Performed By: #### C MP, ESR, PTH, CBC, CRP #### [facility] [address] [place] [address] [place] #### HBCAB, HBSAB, HBSAG, HCV RX PCR #### [facility] , Creatinine [Mass/volume] in Serum or PlasmaOrdered By: Tano Tsai on 09-12-2023 Creatinine [Mass/Vol] 0.74 mg/dL 0.60-1.20 [facility] Eosinophils Auto (Bld) [#/Vo l]Ordered By: Tano Tsai on 09-12-2023 Eosinophils (Bld) [#/Vol] 0.3 10*3/uL 0.0-0.45 [facility] Eosinophils/100 WBC Auto (Bl d)Ordered By: Tano Tsai on 09-12-2023 Eosinophils/100 WBC (Bld) 3.3 % . [facility] Erythrocyte Sedimentation Ra lilo 09-12-2023 ESR (Bld) [Velocity] 26 mm/h Normal 0-29 [facility] Comment on above: Result Comment: PERF ORMED BY: [facility] [address] [place] [address] PATHOLOGIST [employer] SAL[employer] TRAINER VICENTE MONTEZ M.D. Performed By: #### C MP, ESR, PTH, CBC, CRP #### [facility] [address] [place] [address] [place] #### HBCAB, HBSAB, HBSAG, HCV RX PCR #### [facility] , Erythrocyte distribution wid th Auto (RBC) [Ratio]Ordered By: Tano Tsai on 09-12-2023 Erythrocyte distribution width (RBC) [Ratio] 14.8 % 11.9-15.3 [facility] Erythrocyte sedimentation ra te by Photometric methodOrdered By: Tano Tsai on 09-12-2023 ESR Photometric method (Bld) [Velocity] 26 mm/hr 0-29 [facility] Globulin Calc (S) [Mass/Vol] Ordered By: Tano Tsai on 09-12-2023 Globulin (S) [Mass/Vol] 2.9 g/dL [facility] Glucose [Mass/volume] in Ser um or PlasmaOrdered By: Tano Tsai on 09-12-2023 Glucose [Mass/Vol] 99 mg/dL 70-100 [facility] Comment on above: ADA recommended refe rence rangeRandom Glucose Reference Range is dependent on time and content of last meal. Glucose of more than 200 mg/dL in a nonstressed, ambulatory subject supports the diagnosis of Diabetes Mellitus. Hematocrit Auto (Bld) [Volum e fraction]Ordered By: Tano Tsai on 09-12-2023 Hematocrit (Bld) [Volume fraction] 40.9 % 34.0-46.4 [facility] Hemoglobin [Mass/volume] in BloodOrdered By: Tano Tsai on 09-12-2023 Hemoglobin (Bld) [Mass/Vol] 13.2 g/dL 11.8-15.4 [facility] Hep C Ab wRfx to Qnt PCRon 0 09-12-2023 Hepatitis C Virus Antibody Non-Reactive Normal Non Reactive [facility] Comment on above: Performed By: #### C MP, ESR, PTH, CBC, CRP #### [facility] [address] #### HBCAB, HBSAB, HBSAG, HCV RX PCR #### [facility] , Interpretation Hepatitis C Normal . [facility] Comment on above: Result Comment: Not infected with HCV unless early or acute infection is suspected (which may be delayed in an immunocompromised individual), or other evidence exists to indicate HCV infection. Performed By: #### C MP, ESR, PTH, CBC, CRP #### [address] #### HBCAB, HBSAB, HBSAG, HCV RX PCR #### [facility] , Hepatitis B Core Antibodyon 09-12-2023 Hepatitis B Core Antibody Negative Normal Negative [facility] Comment on above: Result Comment: Perf ormed at: - [facility] [place] [id number] Paper Roller: Natanael Banegas PhD, Phone: [phone] Performed By: #### C MP, ESR, PTH, CBC, CRP ####[address]#### HBCAB, HBSAB, HBSAG, HCV RX PCR ####[facility] , Hepatitis B Surface Antibody on 09-12-2023 Hepatitis B Surface Antibody Non-Reactive Normal . [facility] Comment on above: Result Comment: Non Reactive: Inconsistent with immunity, less than 10 mIU/mL Reactive: Consistent with immunity, greater than 9.9 mIU/mL Performed By: #### C MP, ESR, PTH, CBC, CRP #### [place] [address] [place] #### HBCAB, HBSAB, HBSAG, HCV RX PCR #### [facility] , Hepatitis B Surface Antigeno n 09-12-2023 HBsAg Screen Negative Normal Negative [facility] Comment on above: Result Comment: PERF ORMED BY: [facility] [address] [place] [id number] PATHOLOGIST [employer] SAL[employer] TRAINER VICENTE MONTEZ M.D. Performed By: #### C MP, ESR, PTH, CBC, CRP ####[id number]#### HBCAB, HBSAB, HBSAG, HCV RX PCR ####[facility] , Hepatitis B virus surface Ab [Presence] in SerumOrdered By: Tano Tsai on 09-12-2023 HBV surface Ab Ql (S) Non-Reactive . [facility] Comment on above: Non Reactive: Incons istent with immunity, less than 10 mIU/mL Reactive: Consistent with immunity, greater than 9.9 mIU/mL Hepatitis B virus surface Ag [Presence] in Serum or Plasma by ImmunoassayOrdered By: Tano Tsai on 09-12-2023 HBV surface Ag IA Ql Negative Negative [facility] Hepatitis C virus IgG Ab [Pr esence] in Serum or Plasma by ImmunoassayOrdered By: Tano Tsai on 09-12-2023 HCV IgG IA Ql Non-Reactive Non Reactive [facility] Leukocytes [#/volume] correc loan for nucleated erythrocytes in Blood by Automated counOrdered By: Tano Tsai on 09-12-2023 WBC corrected for nucl RBC Auto (Bld) [#/Vol] 9.2 10*3/uL 3.8-11.6 [facility] Lymphocytes Auto (Bld) [#/Vo l]Ordered By: Tano Tsai on 09-12-2023 Lymphocytes (Bld) [#/Vol] 1.9 10*3/uL 1.00-4.8 [facility] Lymphocytes/100 WBC Auto (Bl d)Ordered By: Tano Tsai on 09-12-2023 Lymphocytes/100 WBC (Bld) 21.1 % . [facility] MCH Auto (RBC) [Entitic mass ]Ordered By: Tano Tsai on 09-12-2023 MCH (RBC) [Entitic mass] 27.6 pg 24.7-34.3 [facility] MCHC Auto (RBC) [Mass/Vol]Or dered By: Tano Tsai on 09-12-2023 MCHC (RBC) [Mass/Vol] 32.4 g/dL 32.0-35.0 [facility] MCV Auto (RBC) [Entitic vol] Ordered By: Tano Tsai on 09-12-2023 MCV (RBC) [Entitic vol] 85.2 fL 80-100 [facility] Monocytes Auto (Bld) [#/Vol] Ordered By: Tano Tsai on 09-12-2023 Monocytes (Bld) [#/Vol] 1.0 10*3/uL 0.0-0.8 [facility] Monocytes/100 WBC Auto (Bld) Ordered By: Tano Tsai on 09-12-2023 Monocytes/100 WBC (Bld) 10.5 % . [facility] Neutrophils Auto (Bld) [#/Vo l]Ordered By: Tano Tsai on 09-12-2023 Neutrophils (Bld) [#/Vol] 5.9 10*3/uL 1.8-7.7 [facility] Neutrophils/100 WBC Auto (Bl d)Ordered By: Tano Tsai on 09-12-2023 Neutrophils/100 WBC (Bld) 64.4 % . [facility] No Panel InformationOrdered By: Tano Tsai on 09-12-2023 Estimated GFR (CKD-EPI) > 60.0 mL/Min [facility] Hepatitis B Core Total Antibody Negative Negative [facility] Comment on above: Performed at: - [address] [id number] Director: Natanael Banegas PhD, Phone: [phone] Hepatitis C Interpretation See comment . [facility] Comment on above: Not infected with HC V unless early or acute infection issuspected (which may be delayed in an immunocompromisedindividual), or other evidence exists to indicate HCVinfection. Pharmacy Creatinine Clearance (Chem N/A [facility] Nucleated erythrocytes [Pres ence] in Blood by Automated countOrdered By: Tano Tsai on 09-12-2023 Nucleated RBC Auto Ql (Bld) 0.2 /100{WBC} 0-0.5 [facility] Parathyrin.intact [Mass/volu me] in Serum or PlasmaOrdered By: Tano Tsai on 09-12-2023 Parathyrin.intact [Mass/Vol] 34.2 pg/mL [facility] Parathyroid Hormone Intacton 09-12-2023 Parathyroid Hormone Intact 34.2 pg/mL Normal [facility] Comment on above: Result Comment: PERF ORMED BY: [place] [address] PATHOLOGIST [employer] SAL[employer] TRAINER VICENTE MONTEZ M.D. Performed By: #### C MP, ESR, PTH, CBC, CRP #### [place] [address] [place] #### HBCAB, HBSAB, HBSAG, HCV RX PCR #### [facility] , Platelet mean volume Auto (B ld) [Entitic vol]Ordered By: Tano Tsai on 09-12-2023 Platelet mean volume (Bld) [Entitic vol] 10.3 fL 6.3-10.7 [facility] Platelets Auto (Bld) [#/Vol] Ordered By: Tano Tsai on 09-12-2023 Platelets (Bld) [#/Vol] 253 10*3/uL 150-450 [facility] Potassium [Moles/volume] in Serum or PlasmaOrdered By: Tano Tsai on 09-12-2023 Potassium [Moles/Vol] 4.2 mmol/L 3.5-5.1 [facility] Protein [Mass/volume] in Ser um or PlasmaOrdered By: Tano Tsai on 09-12-2023 Protein [Mass/Vol] 7.1 g/dL 6.4-8.9 [facility] RBC Auto (Bld) [#/Vol]Ordere d By: Tano Tsai on 09-12-2023 RBC (Bld) [#/Vol] 4.80 10*6/uL 3.60-5.00 [facility] Serum or plasma albumin/glob ulin mass ratioOrdered By: Tano Tsai on 09-12-2023 Albumin/Globulin [Mass ratio] 1.4 {ratio} [facility] Serum or plasma anion gap de terminationOrdered By: Tano Tsai on 09-12-2023 Anion gap [Moles/Vol] 9.7 mmol/L 6.0-15.0 [facility] Sodium [Moles/volume] in Ser um or PlasmaOrdered By: Tano Tsai on 09-12-2023 Sodium [Moles/Vol] 142 mmol/L 136-145 [facility] Urea nitrogen [Mass/volume] in Serum or PlasmaOrdered By: Tano Tsai on 09-12-2023 Urea nitrogen [Mass/Vol] 28 mg/dL 7-25 [facility] WBC Auto (Bld) [#/Vol]Ordere d By: Tano Tsai on 09-12-2023 WBC (Bld) [#/Vol] 9.2 10*3/uL 3.8-11.6 [facility] Basophils Auto (Bld) [#/Vol] on 08-03-2023 Basophils (Bld) [#/Vol] 0.1 10 3/uL 0.0-0.1 [facility] Basophils/100 WBC Auto (Bld) on 08-03-2023 Basophils/100 WBC (Bld) 0.6 % 0.2-2.0 [facility] Eosinophils/100 WBC Auto (Bl d)on 08-03-2023 Eosinophils/100 WBC (Bld) 3.2 % 0.9-7.0 [facility] Erythrocyte distribution wid th Auto (RBC) [Ratio]on 08-03-2023 Erythrocyte distribution width (RBC) [Ratio] 13.7 % 11.0-15.0 [facility] Estimated glomerular filtrat ion rate (GFR) non- Americanon 08-03-2023 GFR/1.73 sq M.predicted among non-blacks MDRD (S/P/Bld) [Vol rate/Area] mL/min/{1.73_m2} >=60 [facility] Globulin Calc (S) [Mass/Vol] on 08-03-2023 Globulin (S) [Mass/Vol] 3.8 g/dL [facility] Hematocrit Auto (Bld) [Volum e fraction]on 08-03-2023 Hematocrit (Bld) [Volume fraction] 38.0 % 36.0-48.0 [facility] Hemoglobin [Mass/volume] in Bloodon 08-03-2023 Hemoglobin (Bld) [Mass/Vol] 11.9 g/dL 12.0-16.0 [facility] - Chemistry and C hemistry - challengeon 08-03-2023 Albumin [Mass/Vol] 3.4 g/dL 3.4-5.0 [facility] ALP [Catalytic activity/Vol] 110 U/L 46-116 [facility] ALT [Catalytic activity/Vol] 21 U/L 14-59 [facility] AST [Catalytic activity/Vol] 18 U/L 15-37 [facility] Bilirubin [Mass/Vol] 0.3 mg/dL 0.2-1.[address] [facility] Calcium [Mass/Vol] 8.8 mg/dL 8.5-10.1 [facility] Chloride [Moles/Vol] 103 mmol/L 98-[address] [facility] CO2 [Moles/Vol] 32.4 mmol/L 21.0-32.0 [facility] Cobalamin (Vitamin B12) [Mass/Vol] 803.0 pg/mL 193.0-986.0 [facility] Creatinine [Mass/Vol] 0.88 mg/dL 0.55-1.02 [facility] GFR/1.73 sq M.predicted MDRD (S/P/Bld) [Vol rate/Area] mL/min/{1.73_m2} >=60 [facility] Glucose [Mass/Vol] 150 mg/dL 74-106 [facility] Potassium [Moles/Vol] 3.6 mmol/L 3.5-5.1 [facility] Protein [Mass/Vol] 7.2 g/dL 6.4-8.2 [facility] Sodium [Moles/Vol] 143 mmol/L 136-145 [facility] TSH Qn 1.282 m[IU]/L 0.358-3.740 [facility] Urea nitrogen [Mass/Vol] 26.0 mg/dL 7.0-18.0 [facility] Urea nitrogen/Creatinine [Mass ratio] 29.5 mg/mg [facility] - Hematology and Cell countson 08-03-2023 Immature granulocytes/100 WBC (Bld) 0.3 % 0.0-0.5 [facility] Leukocytes [#/volume] correc loan for nucleated erythrocytes in Blood by Automated counon 08-03-2023 WBC corrected for nucl RBC Auto (Bld) [#/Vol] 8.8 10 3/uL 4.0-11.0 [facility] Lymphocytes Auto (Bld) [#/Vo l]on 08-03-2023 Lymphocytes (Bld) [#/Vol] 2.0 10 3/uL 1.2-3.8 [facility] Lymphocytes/100 WBC Auto (Bl d)on 08-03-2023 Lymphocytes/100 WBC (Bld) 22.7 % 20.5-60.0 [facility] MCH Auto (RBC) [Entitic mass ]on 08-03-2023 MCH (RBC) [Entitic mass] 27.5 pg 26.7-34.0 [facility] MCHC Auto (RBC) [Mass/Vol]on 08-03-2023 MCHC (RBC) [Mass/Vol] 31.3 g/dL 29.9-35.2 [facility] MCV Auto (RBC) [Entitic vol] on 08-03-2023 MCV (RBC) [Entitic vol] 87.8 fL 81.0-99.0 [facility] Monocytes Auto (Bld) [#/Vol] on 08-03-2023 Monocytes (Bld) [#/Vol] 0.9 10 3/uL 0.3-0.8 [facility] Monocytes/100 WBC Auto (Bld) on 08-03-2023 Monocytes/100 WBC (Bld) 9.9 % 1.7-12.0 [facility] Neutrophils Auto (Bld) [#/Vo l]on 08-03-2023 Neutrophils (Bld) [#/Vol] 5.6 10 3/uL 1.4-6.5 [facility] Neutrophils/100 WBC Auto (Bl d)on 08-03-2023 Neutrophils/100 WBC (Bld) 63.3 % 43.0-75.0 [facility] No Panel Informationon 08-02 C-Reactive Protein, Quantitative 1.82 mg/dL <=0.50 [facility] Eosinophils # (Auto) 0.3 10 3/uL 0.0-0.7 [facility] Immature Granulocyte # (Auto) 0.03 10 3/uL 0.00-0.03 [facility] Platelet mean volume Auto (B ld) [Entitic vol]on 08-03-2023 Platelet mean volume (Bld) [Entitic vol] 11.6 fL 9.5-13.5 [facility] Platelets Auto (Bld) [#/Vol] on 08-03-2023 Platelets (Bld) [#/Vol] 279 10 3/uL 150-450 [facility] RBC Auto (Bld) [#/Vol]on RBC (Bld) [#/Vol] 4.33 10 6/uL 4.20-5.40 [facility] Serum nuclear antibody titer on 08-03-2023 Nuclear Ab (S) [Titer] Negative . [facility] Comment on above: Negative <1:80 Borde rline 1:80 Positive >1:80ICAP nomenclature: AC-0For more information about Hep-2 cell patterns useANApatterns.org, the official website for theInternational Consensus on Antinuclear Antibody (ALFONZO)Patterns (ICAP).Performed at: - [facility] [id number] Director: Natanael Banegas PhD, Phone: [phone] Serum or plasma albumin/glob ulin mass ratioon 08-03-2023 Albumin/Globulin [Mass ratio] 0.9 {ratio} [facility] Serum or plasma anion gap de terminationon 08-03-2023 Anion gap [Moles/Vol] 11.2 mmol/L [facility] Serum or plasma cyclic adeno sine monophosphate measurement (moles/volume)on 08-03-2023 Adenosine monophosphate.cyclic [Moles/Vol] 3 units 0-19 [facility] Comment on above: Negative <20 Weak po sitive 20 - 39 Moderate positive 40 - 59 Strong positive >59Performed at: CB - [facility] [address] [place], [place] [id number] Director: Natanael Banegas PhD, Phone: [phone] MR LUMBAR SPINE W AND WO CON [...] examined. Electronically Signed Out By ANNY CHU MD/[facility] By the signature on this report, the individual or group listed as making the Final Interpretation/Diagnos is certifies that they have reviewed this case. Diagnostic interpretation performed at [place] [address] Clinical History: Physician Contact Number: [phone] Ischemic Time (A): 09:35 Fixative (A): Formalin [...] submitted in toto in one cassette. 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 Refer to note in patient chart for documentation of history and physical. Providers: Gustavo Li MD (Doctor), Sara Castillo RN (Nurse), Maciel Ferrer, Retail Team Member Referring: Gustavo Li MD Medicines: See the [...] biopsy result. 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 All rights reserved. The codes documented in this report are preliminary and upon personal banking advisor review may be revised to meet current compliance requirements. Attending Participation: I personally performed the entire procedure. MD Gustavo Enamorado MD 12/12/2022 9:49:01 AM This report has been signed electronically. Number of Addenda: 0 Note Initiated On: 12/12/2022 9:15 AM Total Procedure Duration Time 0 hours 21 minutes 39 seconds [facility] Work Phone: Radiology Study observation (narrative) [facility] Work Phone: Endoscopic Ultrasound (Upper )Ordered By: Gustavo Li on 12-12-2022 [facility] Work Phone: No Panel Informationon 12-12 [employer] DO Work Phone: [email or web address]} [employer] DO Work Phone: [employer] DO Work Phone: Order Reconciliationon 12-12 Order [...] Metam[facility]il [facility] orally once a day [facility] 12-Dec-2022 07:55 Metamucil [facility] orally once a day [facility] 12-Dec-2022 07:55 Metamucil [facility] is continued [...] mg daily Normal [facility] Surgical Pathology Depar tmenton 12-12-2022 [facility] Surgical Pathology Department Name LIZZY WELSH Pathologist: ANNY CHU MD Date of Procedure: 12/12/2022 Date Received: 12/12/2022 Date Reported 12/20/2022 Submitting Physician: GUSTAVO LI MD Location: [facility] Other External # FINAL DIAGNOSIS A. DUODENAL POLYP, BIOPSY: -- SMALL INTESTINAL MUCOSA DEMONSTRATING DILATED LYMPHATIC VESSELS, NO DYSPLASIA IDENTIFIED. Note: Multiple deeper levels were examined. Electronically Signed Out By ANNY CHU MD/[facility] By the signature on this report, the individual or group listed as making the Final Interpretation/Diagnos is certifies that they have reviewed this case. Diagnostic interpretation performed at [place] [address] Clinical History: Physician Contact Number: [phone] Ischemic Time (A): 09:35 Fixative (A): Formalin [...] submitted in toto in one cassette. mrs/12/13/2022 [facility] Department of Pathology [address] [place] [address] [facility] Comment on above: Performed By: #### U [facility] #### [facility] Surgical Pathology Department [address] [place] [address] Upper EUSon 12-12-2022 Upper EUS PATIENTNAME Patient Name: Lizzy Welsh EXAMDATE Procedure Date: 12/12/2022 9:15 AM PATIENTID PATIENTACCOUNTNUM PATIENTDOB Date of : 1950 ADMITTYPE Admit Type: Outpatient PATIENTROOM Site: [facility] ETHNICITY Ethnicity: Not or RACE Race: White PROVDR Attending MD: Gustavo Li MD, [id number] ENDOPROCEDURENAME Procedure: Upper EUS INDICATION Indications: Duodenal mucosal mass/polyp found on endoscopy, 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 Refer to note in patient chart for documentation of history and physical. PRIMARYPROVIDER Providers: Gustavo Li MD (Doctor), Sara Castillo RN (Nurse), Maciel Ferrer, Retail Team Member EDREFPROVIDER Referring: Gustavo Li MD CURRENT_MEDS Medicines: [...] result. 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 All rights reserved. The codes documented in this report are preliminary and upon personal banking advisor review may be revised to meet current compliance requirements. ATTDRPART Attending Participation: I personally performed the entire procedure. SIGNATURENAME MD Gustavo Enamorado MD SIGNATUREDATE 12/12/2022 9:49:01 AM SIGNATUREONFILEIND This report has been signed electronically. NUMADDENDA Number of Addenda: 0 INITIATEDON Note Initiated On: 12/12/2022 9:15 AM TOTPROCTIME Total Procedure Duration Time 0 hours 21 minutes 39 seconds Normal [facility] Mayur 09-28-2022 L -- ---- Specimen: [id number] Received: 09/28/22 Status: SALVADOR Enrique Num: [id number] Spec Type: Surgical Subm Dr: Niurka Oliveira MD Tissues: A Duodenum - Biopsy (DUODENUM BX) B Esophagus Biopsy (ESOPHABEAL BX) Procedures: HE/4, Gross/Micro L4/2 ---- Age/ Patient Sex Location Account Attending Physician ---- Lizzy Welsh 72/F [id number] Niurka Oliveira MD ---- SPEC NUM: [id number] RECD: 09/28/22 STATUS: SALVADOR PRACHIBrandon NUM: [id number] ELVA: 09/28/22- SUBM DR: Niurka Oliveira MD ENTERED: 09/28/[address] [facility] [address]: SPEC TYPE: Surgical DEPT: S ORDERED: [...] one cassette labeled C1. ---- ---- Specimen: [id number] Received: 09/28/22 Status: SALVADOR Enrique Num: [id number] Spec Type: Surgical Subm Dr: Niurka Oliveira MD Tissues: A Duodenum - Biopsy (DUODENUM BX) B Esophagus Biopsy (ESOPHABEAL BX) Procedures: HE/4, Gross/Micro L4/2 ---- Patient: Lizzy Welsh [id number] (Continued) ---- Signed (signature on file) Baylee Newton MD 09/29/22 1009 Normal [facility] ZAK - TSHon 07-19-2022 TSH 1.271 uIU/mL Normal 0.358-3.740 [facility] Comment on above: Performed By: #### D ATTSH #### [facility] [address] [place] [address] Dr. Gertrudis Peres TSH RANGE SEE BELOW Normal [facility] Comment on above: Result Comment: <0.3 4 UIU/ml HYPERTHYROID 0.34-5.60 UIU/ml EUTHYROID >5.60 UIU/ml HYPOTHYROID Performed By: #### D ATTSH #### [facility] [address] [place] [address] Dr. Gertrudis Peres ZAK - VITAMIN Don 07-19-2022 VIT D 25-OH 26.5 ng/mL Normal [facility] Comment on above: Performed By: #### D ATVITD #### [facility] [address] [place] [address] Dr. Gertrudis Peres VIT D RANGES SEE BELOW Normal [facility] Comment on above: Result Comment: <20 ng/mL Vit D deficient 20 - <30 ng/mL Vit D insufficient 30 - 100 ng/mL Vit D sufficient >100 ng/mL Potential Toxicity Performed By: #### D ATVITD #### [facility] [address] [place] [address] Dr. Gertrudis Peres MG MAMM SCREEN 3D MANDY CADon 06-13-2022 MG MAMM SCREEN 3D MANDY CAD Patient: LIZZY WELSH Exam Date: 06/13/2022 : 1950 Gender:F Ordering : DR MCKINLEY ALFARO D.O. Admission #: [id number] Family : Order #: [id number] CLICK HERE TO VIEW EXAM RADIOLOGY REPORT [...] No Treatments None Family Cancers None LOCATION: [facility] BREAST COMPOSITION: Scattered areas fibroglandular density. [...] M.D. on 06/14/2022 at 11:22 Normal [facility] XR DEXA BONE DENSITYon 06-13 XR DEXA [...] High Fracture Risk Electronically authenticated by: TIFFANY VOJESICADEREK Date: 2022-06-13 14:55 Normal [facility] PAP ACOG PANEL 2: 30 to 65on 06-10-2022 . . Normal [facility] Comment on above: Performed By: #### [id number] #### [facility] [address] [place] [address] Dr. Gertrudis Peres Age Gdln ACOG Testing Comment Normal [facility] Comment on above: Result Comment: <21 or >65 or no age provided Performed By: #### 4 [id number] #### [facility] [address] [place] [address] Dr. Gertrudis Peres DIAGNOSIS: Comment [facility] Comment on above: Result Comment: NEGA TIVE FOR INTRAEPITHELIAL LESION OR MALIGNANCY. Performed By: #### 4 [id number] #### [facility] [address] [place] [address] Dr. Gertrudis Peres Methodology: Comment [facility] Comment on above: Result Comment: This liquid based ThinPrep(R) pap test was screened with the use of an image guided system. Performed By: #### 4 [id number] #### [facility] [address] [place] [address] Dr. Gertrudis Peres Note: Comment [facility] Comment on above: Result Comment: The Pap smear is a screening test designed to aid in the detection of premalignant and malignant conditions of the uterine cervix. It is not a diagnostic procedure and should not be used as the sole means of detecting cervical cancer. Both false-positive and false-negative reports do occur. . Performed By: #### 4 [id number] #### [facility] [address] [place] [address] Dr. Gertrudis Peres Performed by: Comment Normal [facility] Comment on above: Result Comment: [employer] (ASCP) Performed By: #### 4 [id number] #### [facility] [address] [place] [address] Dr. Gertrudis Peres Specimen adequacy: Comment Normal [facility] Comment on above: Result Comment: Sati sfactory for evaluation. Endocervical and/or squamous metaplastic cells (endocervical component) are present. Performed By: #### 4 [id number] #### [facility] [address] [place] [address] [address] Gertrudis Peres XR HIPS MANDY 5V [...] by: NICANOR NAQVI Date: 2022-05-03 16:34 Normal [facility] CBC AUTO DIFFon 03-31-2022 BASO # 0.0 103/ul Normal 0.0-0.1 [facility] Comment on above: Performed By: #### C BC #### [facility] [address] [place] [address] [address] Gertrudis Peres Basophils/100 WBC (Bld) 0.5 % Normal 0.2-2.0 [facility] Comment on above: Performed By: #### C BC #### [facility] [address] [place] [address] [address] Gertrudis Peres EO # 0.3 103/ul Normal 0.0-0.7 [facility] Comment on above: Performed By: #### C BC #### [facility] [address] [place] [address] Dr. Gertrudis Peres Eosinophils/100 WBC (Bld) 4.3 % Normal 0.9-7.0 [facility] Comment on above: Performed By: #### C BC #### [facility] [address] [place] [address] Dr. Gertrudis Peres Erythrocyte distribution width (RBC) [Ratio] 13.2 % Normal 11.0-15.0 [facility] Comment on above: Performed By: #### C BC #### [facility] [address] [place] [address] Dr. Gertrudis Peres Hematocrit (Bld) [Volume fraction] 37.9 % Normal 36.0-48.0 [facility] Comment on above: Performed By: #### C BC #### [facility] [address] [place] [address] Dr. Gertrudis Peres Hemoglobin (Bld) [Mass/Vol] 12.7 g/dL Normal 12.0-16.0 [facility] Comment on above: Performed By: #### C BC #### [facility] [address] [place] [address] Dr. Gertrudis Peres IG # 0.02 10e3/ul Normal 0.00-0.03 [facility] Comment on above: Performed By: #### C BC #### [facility] [address] [place] [address] Dr. Gertrudis Peres IG % 0.3 % Normal 0.0-0.5 [facility] Comment on above: Performed By: #### C BC #### [facility] [address] [place] [address] Dr. Gertrudis Peres LYMPH # 1.7 103/ul Normal 1.2-3.8 [facility] Comment on above: Performed By: #### C BC #### [facility] [address] [place] [address] Dr. Gertrudis Peres Lymphocytes/100 WBC (Bld) 26.4 % Normal 20.5-60.0 [facility] Comment on above: Performed By: #### C BC #### [facility] [address] [place] [address] Dr. Gertrudis Peres MANUAL DIFF REQ NO Normal [facility] Comment on above: Performed By: #### C BC #### [facility] [address] [place] [address] Dr. Gertrudis Peres MCH (RBC) [Entitic mass] 28.6 pg Normal 26.7-34.0 [facility] Comment on above: Performed By: #### C BC #### [facility] [address] [place] [address] Dr. Gertrudis Peres MCHC (RBC) [Mass/Vol] 33.5 g/dL Normal 29.9-35.2 [facility] Comment on above: Performed By: #### C BC #### [facility] [address] [place] [address] Dr. Gertrudis Peres MCV (RBC) [Entitic vol] 85.4 fL Normal 81.0-99.0 [facility] Comment on above: Performed By: #### C BC #### [facility] [address] [place] [address] Dr. Gertrudis Peres MONO # 0.5 103/ul Normal 0.3-0.8 [facility] Comment on above: Performed By: #### C BC #### [facility] [address] [place] [address] Dr. Gertrudis Peres Monocytes/100 WBC (Bld) 8.1 % Normal 1.7-12.0 [facility] Comment on above: Performed By: #### C BC #### [facility] [address] [place] [address] Dr. Gertrudis Peres NEUT # 3.9 103/ul Normal 1.4-6.5 [facility] Comment on above: Performed By: #### C BC #### [facility] [address] [place] [address] Dr. Gertrudis Peres Neutrophils/100 WBC (Bld) 60.4 % Normal 43.0-75.0 [facility] Comment on above: Performed By: #### C BC #### [facility] [address] [place] [address] Dr. Gertrudis Peres Platelet mean volume (Bld) [Entitic vol] 11.3 fL Normal 9.5-13.5 [facility] Comment on above: Performed By: #### C BC #### [facility] [address] [place] [address] Dr. Gertrudis Peres PLT 215 103/ul Normal 150-450 [facility] Comment on above: Performed By: #### C BC #### [facility] [address] [place] [address] Dr. Gertrudis Peres RBC 4.44 106/ul Normal 4.20-5.40 [facility] Comment on above: Performed By: #### C BC #### [facility] [address] [place] [address] Dr. Gertrudis Peres WBC 6.5 103/ul Normal 4.0-11.0 [facility] Comment on above: Performed By: #### C BC #### [facility] [address] [place] [address] Dr. Gertrudis Peres PROF 14(COMP METB)on 022 Albumin [Mass/Vol] 3.7 g/dL Normal 3.4-5.0 [facility] Comment on above: Performed By: #### C MP #### [facility] [address] [place] [address] Dr. Gertrudis Peres Albumin/Globulin [Mass ratio] 1.1 {ratio} Normal [facility] Comment on above: Performed By: #### C MP #### [facility] [address] [place] [address] Dr. Gertrudis Peres ALP [Catalytic activity/Vol] 112 U/L Normal 46-116 [facility] Comment on above: Performed By: #### C MP #### [facility] [address] [place] [address] Dr. Gertrudis Peres ALT [Catalytic activity/Vol] 23 U/L Normal 14-59 [facility] Comment on above: Performed By: #### C MP #### [facility] [address] [address] [address] Gertrudis Peres Anion gap [Moles/Vol] 7.1 mmol/L Normal [facility] Comment on above: Performed By: #### C MP #### [facility] [address] [address] [address] Gertrudis Peres AST [Catalytic activity/Vol] 18 U/L Normal 15-37 [facility] Comment on above: Performed By: #### C MP #### [facility] [address] [address] [address] Gertrudis Peres Bilirubin [Mass/Vol] 0.4 mg/dL Normal 0.2-1.0 [facility] Comment on above: Performed By: #### C MP #### [facility] [address] [place] [address] Dr. Gertrudis Peres Calcium [Mass/Vol] 8.6 mg/dL Normal 8.5-10.1 [facility] Comment on above: Performed By: #### C MP #### [facility] [address] [place] [address] Dr. Gertrudis Peres Chloride [Moles/Vol] 105 mmol/L Normal 98-107 [facility] Comment on above: Performed By: #### C MP #### [facility] [address] [address] [address] Gertrudis Peres CO2 [Moles/Vol] 34.0 mmol/L Critically high 21.0-32.0 [facility] Comment on above: Performed By: #### C MP #### [facility] [address] [address] [address] Gertrudis Peres Creatinine [Mass/Vol] 0.80 mg/dL Normal 0.55-1.02 [facility] Comment on above: Performed By: #### C MP #### [facility] [address] [place] [address] Dr. Gertrudis Peres EGFR-AF IRISH >60 Normal >=60 [facility] Comment on above: Performed By: #### C MP #### [facility] [address] [place] [address] [address] Gertrudis Peres EGFR-NON AF IRISH >60 Normal >=60 [facility] Comment on above: Performed By: #### C MP #### [facility] [address] [address] [address] Gertrudis Peres Globulin (S) [Mass/Vol] 3.5 g/dL Normal [facility] Comment on above: Performed By: #### C MP #### [facility] [address] [address] [address] Gertrudis Peres Glucose [Mass/Vol] 119 mg/dL Critically high 74-106 [facility] Comment on above: Performed By: #### C MP #### [facility] [address] [place] [address] [address] Gertrudis Peres Potassium [Moles/Vol] 3.1 mmol/L Critically low 3.5-5.1 [facility] Comment on above: Performed By: #### C MP #### [facility] [address] [place] [id number] Dr. Gertrudis Peres Protein [Mass/Vol] 7.2 g/dL Normal 6.4-8.2 [facility] Comment on above: Performed By: #### C MP #### [facility] [address] [place] [address] Dr. Gertrudis Peres Sodium [Moles/Vol] 143 mmol/L Normal 136-145 [facility] Comment on above: Performed By: #### C MP #### [facility] [address] [address] [address] Gertrudis Peres Urea nitrogen [Mass/Vol] 24.0 mg/dL Critically high 7.0-18.0 [facility] Comment on above: Performed By: #### C MP #### [facility] [address] [address] [address] Gertrudis Peres Urea nitrogen/Creatinine [Mass ratio] 30.0 mg/mg Normal [facility] Comment on above: Performed By: #### C MP #### [facility] [address] [address] [address] Gertrudis Peres US SINGLE QUAD UMBILon [...] TIFFANY ROSE Date: 2021-09-29 14:52 Normal [facility] CBC with Diffon 10-04-2018 Abs. Basophil 0.05 k/uL Normal 0.00-0.20 [facility] Comment on above: Performed By: #### C MPX, CDP #### [facility] [address] [place] [address] Dr[address] [place] [id number] Paper Roller: Peter Conklin MD Abs.Imm.Granulocyte <0.03 Normal 0.00-0.30 [facility] Comment on above: Performed By: #### C MPX, CDP #### [address] [place], [place] [address] Paper Roller: Peter Conklin MD Abs.Neutrophil (Seg) 4.64 k/uL Normal 1.50-8.10 [facility] Comment on above: Performed By: #### C MPX, CDP #### [address] [place], [facility]83 Paper Roller: Peter Conklin MD Basophils/100 WBC (Bld) 1 % Normal 0-2 [facility] Comment on above: Performed By: #### C MPX, CDP #### [address] [place] [address] Paper Roller: Peter Conklin MD Eosinophils #/vol (Bld) 0.35 10*3/uL Normal 0.00-0.44 [facility] Comment on above: Performed By: #### C MPX, CDP #### [facility] [address] [place], [facility]83 Paper [employer]: Peter Conklin MD Eosinophils/100 WBC (Bld) 4 % Normal 1-4 [facility] Comment on above: Performed By: #### C MPX, CDP #### [facility] [address] [place], [place] [address] Paper [employer]: Peter Conklin MD Erythrocyte distribution width Ratio (RBC) 13.8 % Normal 11.8-14.4 [facility] Comment on above: Performed By: #### C MPX, CDP #### [facility] [address] [place], [facility]83 Paper Rol[employer]: Peter Conklin MD Hematocrit Volume Fraction (Bld) 44.8 % Normal 36.3-47.1 [facility] Comment on above: Performed By: #### C MPX, CDP #### [facility] [address] [place], [facility]83 Paper Roller: Peter Conklin MD Hemoglobin mass conc (Bld) 14.1 g/dL Normal 11.9-15.1 [facility] Comment on above: Performed By: #### C MPX, CDP #### [facility] [address] [place], [facility]83 Paper Roller: Peter Conklin MD Immature granulocytes #/vol (Bld) 0 % Normal 0 [facility] Comment on above: Performed By: #### C MPX, CDP #### [facility] [address] [place], [facility]83 Paper Roller: Peter Conklin MD Lymphocytes #/vol (Bld) 2.23 10*3/uL Normal 1.10-3.70 [facility] Comment on above: Performed By: #### C MPX, CDP #### [facility] [address] [place], [facility]83 Paper [employer]ler: Peter Conklin MD Lymphocytes/100 WBC (Bld) 27 % Normal 24-43 [facility] Comment on above: Performed By: #### C MPX, CDP #### [facility] [address] [place], [place] [id number] Paper [employer]ler: Peter Conklin MD MCH Entitic mass (RBC) 27.8 pg Normal 25.2-33.5 [facility] Comment on above: Performed By: #### C MPX, CDP #### [facility] [address] [place], [place] 488[address]83 Paper [employer]ler: Peter Conklin MD MCHC mass conc (RBC) 31.5 g/dL Normal 28.4-34.8 [facility] Comment on above: Performed By: #### C MPX, CDP #### [facility] [address] [place], [place] 1144483 Paper [employer]: Peter Conklin MD MCV Entitic volume (RBC) 88.4 fL Normal 82.6-102.9 [facility] Comment on above: Performed By: #### C MPX, CDP #### [facility] [address] [place], [place] 2866083 Paper [employer]: Peter Conklin MD Monocytes #/vol (Bld) 0.84 10*3/uL Normal 0.10-1.20 [facility] Comment on above: Performed By: #### C MPX, CDP #### [facility] [address] [place], [place] 1388083 Paper [employer]: Peter Conklin MD Monocytes/100 WBC (Bld) 10 % Normal 3-12 [facility] Comment on above: Performed By: #### C MPX, CDP #### [facility] [address] [place], [place] 2889183 Paper Roller: Peter Conklin MD Neutrophil (Seg) 58 % Normal 36-65 [facility] Comment on above: Performed By: #### C MPX, CDP #### [facility] [address] [place], [place] 099[address]83 [employer]: Peter Conklin MD NRBC Automated 0.0 per 100 WBC Normal 0.0 [facility] Comment on above: Performed By: #### C MPX, CDP #### [facility] [address] [place], [place] [address]3 Paper [employer]ler: Peter Conklin MD Platelet mean volume Entitic volume (Bld) 11.7 fL Normal 8.1-13.5 [facility] Comment on above: Performed By: #### C MPX, CDP #### [facility] [address] [place], [place] 626[address]83 Paper [employer]ler: Peter Conklin MD Platelets #/vol (Bld) 269 10*3/uL Normal 138-453 [facility] Comment on above: Performed By: #### C MPX, CDP #### [address] [place], [place] 7473383 Paper [employer]: Peter Conklin MD RBC #/vol (Bld) 5.07 10*6/uL Normal 3.95-5.11 [facility] Comment on above: Performed By: #### C MPX, CDP #### [facility] [address] [place] [address] Paper Roller: Peter Conklin MD WBC #/vol (Bld) 8.1 10*3/uL Normal 3.5-11.3 [facility] Comment on above: Performed By: #### C MPX, CDP #### [facility] [address] [place] [address] Paper Roller: Peter Conklin MD Auto Diff Performed NOT REPORTED Normal [facility] Comment on above: Performed By: #### C MPX, CDP #### [facility] [address] [place], [place] 623[address]83 Paper [employer]ler: Peter Conklin MD Platelets #/vol (Bld) NOT REPORTED Normal [facility] Comment on above: Performed By: #### C MPX, CDP #### [facility] [address] [place] [address] Paper Roller: Peter Conklin MD RBC morphology finding Nom (Bld) NOT REPORTED Normal [facility] Comment on above: Performed By: #### C MPX, CDP #### [facility] [address] [place] [address] Paper Roller: Peter Conklin MD WBC Morphology NOT REPORTED Normal [facility] Comment on above: Performed By: #### C MPX, CDP #### [facility] [address] [place], [place] 1593983 Paper [employer]: Peter Conklin MD CT ABDOMEN PELVIS WO [...] Sushant Dobbs MD 10/04/18 Final result Normal [facility] Comp Metabolic Pr/rfx MGon 0 10-04-2018 (cont.) Normal [facility] Comment on above: Result Comment: Aver age GFR for 60-69 years old: 85 mL/min/1.73sq m Chronic Kidney Disease: <60 mL/min/1.73sq m Kidney failure: <15 mL/min/1.73sq m eGFR calculated using average adult body mass. Additional eGFR calculator available at: http://[email or web address].Fluent [email or web address]_crcl_2012.htm Performed By: #### C GABRIELLE, CDP #### [facility] [address] [place] [address] [place] [address] Paper [employer]: Peter Conklin MD Albumin mass conc 4.3 g/dL Normal 3.5-5.2 [facility] Comment on above: Performed By: #### C GABRIELLE, CDP #### [facility] [address] [place] [address] [employer]: Peter Conklin MD Albumin/Globulin mass ratio 1.2 {ratio} Normal 1.0-2.5 [facility] Comment on above: Performed By: #### C GABRIELLE, CDP #### [facility] [address] [place] [address] [place] [address] [employer]: Peter Conklin MD Alkaline Phos 184 U/L High 35-104 [facility] Comment on above: Performed By: #### C MPX, CDP #### [facility] [address] [place], [place] 7899683 [employer]: Peter Conklin MD ALT enzyme act/vol 16 U/L Normal 5-33 [facility] Comment on above: Performed By: #### C MPX, CDP #### [facility] [address] [place], [place] 575[address]83 [employer]: Peter Conklin MD Anion gap molar conc 13 mmol/L Normal 9-17 [facility] Comment on above: Performed By: #### C MPX, CDP #### [facility] [address] [place], [place] 9217683 [employer]: Peter Conklin MD AST enzyme act/vol 20 U/L Normal <32 [facility] Comment on above: Performed By: #### C MPX, CDP #### [facility] [address] [place], [place] 1997283 Paper [employer]: Peter Conklin MD Bilirubin Ql (U) 0.36 mg/dL Normal 0.3-1.2 [facility] Comment on above: Performed By: #### C MPX, CDP #### [facility] [address] [place], [place] 1657983 [employer]: Peter Conklin MD BUN/CRE Ratio 53 High 9-20 [facility] Comment on above: Performed By: #### C MPX, CDP #### [facility] [address] [place], [place] 0[address]83 Paper [employer]: Peter Conklin MD Calcium mass conc 9.2 mg/dL Normal 8.6-10.4 [facility] Comment on above: Performed By: #### C MPX, CDP #### [facility] [address] [place], [place] 6038783 Paper [employer]ler: Peter Conklin MD Chloride molar conc 103 mmol/L Normal 98-107 [facility] Comment on above: Performed By: #### C MPX, CDP #### [facility] [address] [place], [place] 2623083 [employer]: Peter Conklin MD CO2 molar conc 25 mmol/L Normal 20-31 [facility] Comment on above: Performed By: #### C MPX, CDP #### [facility] [address] [place], [place] 2418783 Paper [employer]ler: Peter Conklin MD Creatinine mass conc 0.60 mg/dL Normal 0.50-0.90 [facility] Comment on above: Performed By: #### C MPX, CDP #### [facility] [address] [place], [place] 0195383 Paper [employer]: Peter Conklin MD GFR, Amer >60 Normal >60 [facility] Comment on above: Performed By: #### C MPX, CDP #### [facility] [address] [place], [place] 7[address]2483 Paper [employer]ler: Peter Conklin MD GFR,non Amer >60 Normal >60 [facility] Comment on above: Performed By: #### C MPX, CDP #### [facility] [address] [place] [address] Paper Roller: Peter Conklin MD Glucose mass conc 123 mg/dL High 70-99 [facility] Comment on above: Performed By: #### C MPX, CDP #### [facility] [address] [place], [place] 5729383 Paper [employer]ler: ePter Conklin MD Potassium molar conc 4.0 mmol/L Normal 3.7-5.3 [facility] Comment on above: Performed By: #### C MPX, CDP #### [facility] [address] [place], [place] 4390783 Paper [employer]ler: Peter Conklin MD Protein mass conc 7.8 g/dL Normal 6.4-8.3 [facility] Comment on above: Performed By: #### C MPX, CDP #### [facility] [address] [place], [place] 6978483 Paper [employer]ler: Peter Conklin MD Sodium molar conc 141 mmol/L Normal 135-144 [facility] Comment on above: Performed By: #### C MPX, CDP #### [facility] [address] [place], [place] 4932783 Paper [employer]ler: Peter Conklin MD Staging: Normal [facility] Comment on above: Result Comment: Stag e 1: Some kidney damage normal GFR Stage 2: Mild kidney damage GFR 60-89 Stage 3: Moderate kidney damage GFR 30-59 Stage 4: Severe kidney damage GFR 15-29 Stage 5: Severe kidney damage GFR <15 ESRD - chronic treatment by dialysis or transplant Performed By: #### C MPX, CDP #### [facility] [address] [place], [place] 1860283 Paper Roller: Peter Conklin MD Urea nitrogen mass conc 32 mg/dL High 8-23 [facility] Comment on above: Performed By: #### C MPX, CDP #### [facility] [address] [place], [place] 3168783 Paper Roller: Peter Conklin MD Urinalysis, Routineon 2018 Acetoacetic Acid,Ur Negative Normal NEG [facility] Comment on above: Performed By: #### U A, UMICAO #### [facility] [address] [place], [place] 6165183 Paper [employer]ler: Peter Conklin MD Bilirubin, SemiQt,Ur Negative Normal NEG [facility] Comment on above: Performed By: #### U A, UMICAO #### [facility] [address] [place], [place] 4052883 Paper [employer]ler: Peter Conklin MD Color Nom (U) YELLOW Normal YEL [facility] Comment on above: Performed By: #### U A, UMICAO #### [facility] [address] [place] [address] Paper Roller: Peter Conklin MD Glucose,Semi-qnt,Ur Negative Normal NEG [facility] Comment on above: Performed By: #### U A, UMICAO #### [facility] [address] [place] [address] Paper Roller: Peter Conklin MD Hemoglobin, Ur 3+ Abnormal NEG [facility] Comment on above: Performed By: #### U A, UMICAO #### [facility] [address] [place] [address] Paper Roller: Peter Conklin MD Leuckocyte Esterase SMALL Abnormal [facility] Comment on above: Performed By: #### U A, UMICAO #### [facility] [address] [place] [address] Paper Roller: Peter Conklin MD Nitrite,Ur Negative Normal [facility] Comment on above: Performed By: #### U A, UMICAO #### [facility] [address] [place] [address] Paper Roller: Peter Conklin MD PH,Ur 5.5 Normal 5.0-9.0 [facility] Comment on above: Performed By: #### U A, UMICAO #### [facility] [address] [place] [address] Paper Roller: Peter Conklin MD Protein mass conc (U) TRACE Abnormal NEG [facility] Comment on above: Performed By: #### U A, UMICAO #### [facility] [address] [place], [place] 3793883 Paper Roller: Peter Conklin MD Spec. [place],Ur >1.030 High 1.010-1.020 [facility] Comment on above: Performed By: #### U A, UMICAO #### [facility] [address] [place], [place] 5219283 Paper Roller: Peter Conklin MD Turbidity SLIGHTLY CLOUDY Abnormal CLEAR [facility] Comment on above: Performed By: #### U A, UMICAO #### [facility] [address] [place], [place] 6138183 Paper Roller: Peter Conklin MD Urobilinogen,Ur Normal Normal NORM [facility] Comment on above: Performed By: #### U A, UMICAO #### [facility] [address] [place] [address] Paper Roller: Peter Conklin MD Comment NOT REPORTED Normal [facility] Comment on above: Performed By: #### U A, UMICAO #### [facility] [address] [place] [address] Paper Roller: Peter Conklin MD Urinalysis,Microon 9 ----- Normal [facility] Comment on above: Performed By: #### U A, UMICAO #### [facility] [address] [place] [address] Paper Roller: Peter Conklin MD Bacteria LM.HPF #/area (Urine sed) TRACE Abnormal NONE [facility] Comment on above: Performed By: #### U A, UMICAO #### [facility] [address] [place] [address] Paper Roller: Peter Conklin MD Epithelial cells LM.HPF #/area (Urine sed) 2 TO 5 Normal 0-25 [facility] Comment on above: Performed By: #### U A, UMICAO #### [facility] [address] [place], [place] 5912483 Paper Roller: Peter Conklin MD Mucus Strands TRACE Abnormal [facility] Comment on above: Performed By: #### U A, UMICAO #### [facility] [address] [place] [address] Paper Roller: Peter Conkiln MD RBC #/vol (U) 50 TO 100 Normal 0-2 [facility] Comment on above: Performed By: #### U A, UMICAO #### [facility] [address] [place] [address] Paper Roller: Peter Conklin MD WBC #/vol (U) 2 TO 5 Normal 0-5 [facility] Comment on above: Performed By: #### U A, UMICAO #### [facility] [address] [place] [place] [address] Paper Roller: Peter Conklin MD Amorphous sediment LM Ql (Urine sed) NOT REPORTED Normal [facility] Comment on above: Performed By: #### U A, UMICAO #### [facility] [address] [place] [id number] Paper Roller: Peter Conklin MD Casts LM.LPF #/area (Urine sed) NOT REPORTED Normal [facility] Comment on above: Performed By: #### U A, UMICAO #### [facility] [address] [place] [address] Paper Roller: Peter Conklin MD Crystals LM Nom (Urine sed) NOT REPORTED Normal [facility] Comment on above: Performed By: #### U A, UMICAO #### [facility] [address] [place], [facility]83 Paper Roller: Peter Conklin MD Epithelial, Renal NOT REPORTED Normal 0 [facility] Comment on above: Performed By: #### U A, UMICAO #### [facility] [address] [place] [address] Paper Roller: Peter Conklin MD Other Observations NOT REPORTED Normal NREQ [facility] Comment on above: Performed By: #### U A, UMICAO #### [facility] [address] [place] [address] Paper Roller: Peter Conklin MD Trichomonas NOT REPORTED Normal NONE [facility] Comment on above: Performed By: #### U A, UMICAO #### [facility] [address] [place] [address] Paper Roller: Peter Conklin MD Yeast LM Ql (Urine sed) NOT REPORTED Normal NONE [facility] Comment on above: Performed By: #### U A, UMICAO #### [facility] [address] [place] [address] Paper Roller: Peter Conklin MD Vital Signs Date Time Vital Sign Value Performing Clinician Facility 03-13-2024 09:29-0400 Body height 160.02 cm [facility] 03-13-2024 09:290400 Body mass index (BMI) [Ratio] 37.6 kg/m2 [facility] 03-13-2024 09:29-0400 Body weight 96.38 kg [facility] 03-13-2024 09:29-0400 Diastolic blood pressure 81 mm[Hg] [facility] 03-13-2024 09:29-0400 Heart rate 80 /min [facility] 03-13-2024 09:29-0400 Respiratory rate 12 /min [facility] 03-13-2024 09:29-0400 Systolic blood pressure 142 mm[Hg] [facility] 01-29-2024 10:03-0400 Body height 160.02 cm [facility] 01-29-2024 10:03-0400 Body mass index (BMI) [Ratio] 37.2 kg/m2 [facility] 01-29-2024 10:03-0400 Body weight 95.36 kg [facility] 01-29-2024 10:03-0400 Diastolic blood pressure 78 mm[Hg] [facility] 01-29-2024 10:03-0400 Heart rate 61 /min [facility] 01-29-2024 10:03-0400 Respiratory rate 12 /min [facility] 01-29-2024 10:03-0400 Systolic blood pressure 139 mm[Hg] [facility] 10-30-2023 09:35-0400 Body height 160.02 cm DO Mckinley Ball Work Phone: [facility] 10-30-2023 09:35-0400 Body mass index (BMI) [Ratio] 37.3 kg/m2 DO Mckinley Ball Work Phone: [facility] 10-30-2023 09:35-0400 Body weight 95.42 kg DO Mckinley Ball Work Phone: [facility] 10-30-2023 09:35-0400 Diastolic blood pressure 89 mm[Hg] DO Mckinley Ball Work Phone: [facility] 10-30-2023 09:35-0400 Heart rate 82 /min DO Mckinley Ball Work Phone: [facility] 10-30-2023 09:35-0400 Respiratory rate 12 /min DO Mckinely Ball Work Phone: [facility] 10-30-2023 09:35-0400 Systolic blood pressure 164 mm[Hg] DO Mckinley Ball Work Phone: [facility] 10-12-2023 09:18-0400 Body height 160.02 cm DO Mckinley Ball Work Phone: [facility] 10-12-2023 09:18-0400 Body mass index (BMI) [Ratio] 37 kg/m2 DO Mckinley Ball Work Phone: [facility] 10-12-2023 09:18-0400 Body weight 94.85 kg DO Mckinley Ball Work Phone: [facility] 10-12-2023 09:18-0400 Diastolic blood pressure 77 mm[Hg] DO Mckinley Ball Work Phone: [facility] 10-12-2023 09:18-0400 Heart rate 77 /min DO Mckinley Ball Work Phone: [facility] 10-12-2023 09:18-0400 Respiratory rate 12 /min DO Mckinley Ball Work Phone: [facility] 10-12-2023 09:18-0400 Systolic blood pressure 148 mm[Hg] DO Mckinley Ball Work Phone: [facility] 07-30-2023 15:01-0400 Body height 160.02 cm DO Mckinley Ball Work Phone: [facility] 07-30-2023 15:01-0400 Body mass index (BMI) [Ratio] 36.6 kg/m2 DO Mckinley Ball Work Phone: [facility] 07-30-2023 15:01-0400 Body weight 93.66 kg DO Mckinley Ball Work Phone: [facility] 07-30-2023 15:01-0400 Diastolic blood pressure 90 mm[Hg] DO Mckinley Ball Work Phone: [facility] 07-30-2023 15:01-0400 Heart rate 75 /min DO Mckinley Ball Work Phone: [facility] 07-30-2023 15:01-0400 Systolic blood pressure 149 mm[Hg] DO Mckinley Ball Work Phone: [facility] 06-13-2023 09:00-0500 Body height 161.29 cm Mckinley Ball Other [facility] Other 06-13-2023 09:00-0500 Body mass index (BMI) [Ratio] 35.43 kg/m2 Mckinley Ball Other [facility] Other 06-13-2023 09:00-0500 Body weight 92.17 kg Mckinley Ball Other [facility] Other 06-13-2023 09:00-0500 Diastolic blood pressure 77 mm[Hg] Mckinley Ball Other [facility] Other 06-13-2023 09:00-0500 Respiratory rate 12 /min Mckinley Ball Other [facility] Other 06-13-2023 09:00-0500 Systolic blood pressure 127 mm[Hg] Mckinley Ball Other [facility] Other 05-03-2023 08:30-0500 Body height 161.29 cm Mckinley Ball Other [facility] Other 05-03-2023 08:30-0500 Body mass index (BMI) [Ratio] 35.39 kg/m2 Mckinley Ball Other [facility] Other 05-03-2023 08:30-0500 Body weight 92.08 kg Mckinley Ball Other [facility] Other 05-03-2023 08:30-0500 Diastolic blood pressure 79 mm[Hg] Mckinley Ball Other [facility] Other 05-03-2023 08:30-0500 Respiratory rate 12 /min Mckinley Ball Other [facility] Other 05-03-2023 08:30-0500 Systolic blood pressure 133 mm[Hg] Mckinley Ball Other [facility] Other 03-08-2023 09:30-0400 Body height 161.29 cm Mckinley Ball Other [facility] Other 03-08-2023 09:30-0400 Body mass index (BMI) [Ratio] 35.01 kg/m2 Mckinley Ball Other [facility] Other 03-08-2023 09:30-0400 Body weight 91.08 kg Mckinley Ball Other [facility] Other 03-08-2023 09:30-0400 Diastolic blood pressure 83 mm[Hg] Mckinley Ball Other [facility] Other 03-08-2023 09:30-0400 Respiratory rate 12 /min Mckinley Ball Other [facility] Other 03-08-2023 09:30-0400 Systolic blood pressure 134 mm[Hg] Mckinley Ball Other [facility] Other 01-04-2023 11:30-0400 Body height 161.29 cm Mckinley Ball Other [facility] Other 01-04-2023 11:30-0400 Body mass index (BMI) [Ratio] 34.69 kg/m2 Mckinley Ball Other [facility] Other 01-04-2023 11:30-0400 Body weight 90.27 kg Mckinley Ball Other [facility] Other 01-04-2023 11:30-0400 Diastolic blood pressure 81 mm[Hg] Mckinley Ball Other [facility] Other 01-04-2023 11:30-0400 Respiratory rate 12 /min Mckinley Ball Other [facility] Other 01-04-2023 11:30-0400 Systolic blood pressure 131 mm[Hg] Mckinley Ball Other [facility] Other 12-12-2022 07:50-0400 Body height 153.1 cm Gustavo Li MD Work Phone: [facility] 12-12-2022 07:50-0400 Body mass index (BMI) [Ratio] 38.4 kg/m2 Gustavo Li MD Work Phone: [facility] 12-12-2022 07:50-0400 Body weight 90 kg Gustavo Li MD Work Phone: [facility] 11-01-2022 14:30-0400 Body height 161.29 cm Keara Bullard Other [facility] Other 11-01-2022 14:30-0400 Body mass index (BMI) [Ratio] 35.22 kg/m2 Keara Bullard Other [facility] Other 11-01-2022 14:30-0400 Body weight 91.63 kg Keara Bullard Other [facility] Other 11-01-2022 14:30-0400 Diastolic blood pressure 84 mm[Hg] Keara Bullard Other [facility] Other 11-01-2022 14:30-0400 Systolic blood pressure 130 mm[Hg] Keara Bullard Other [facility] Other 09-28-2022 10:05-0400 Diastolic blood pressure 75 mm[Hg] DO [employer] Work Phone: [facility] 09-28-2022 10:05-0400 Heart rate 60 /min DO [employer] Work Phone: [facility] 09-28-2022 10:05-0400 Respiratory rate 16 /min DO [employer] Work Phone: [facility] 09-28-2022 10:05-0400 SaO2% (BldA) [Mass fraction] 98 % DO [employer] Work Phone: [facility] 09-28-2022 10:05-0400 Systolic blood pressure 153 mm[Hg] DO [employer] Work Phone: [facility] 09-28-2022 07:48-0400 Body height 160.02 cm DO Arnoldo Nixon Work Phone: [facility] 09-28-2022 07:48-0400 Body temperature 98.9 [degF] DO Arnoldo Nixon Work Phone: [facility] 09-28-2022 07:48-0400 Body weight 93.89 kg DO Arnoldo Nixon Work Phone: [facility] 07-04-2022 09:30-0500 Body height 161.29 cm Mckinley Ball Other [facility] Other 07-04-2022 09:30-0500 Body mass index (BMI) [Ratio] 36.3 kg/m2 Mckinley Ball Other [facility] Other 07-04-2022 09:30-0500 Body weight 94.44 kg Mckinley Ball Other [facility] Other 07-04-2022 09:30-0500 Diastolic blood pressure 78 mm[Hg] Mckinley Ball Other [facility] Other 07-04-2022 09:30-0500 Respiratory rate 12 /min Mckinley Ball Other [facility] Other 07-04-2022 09:30-0500 Systolic blood pressure 122 mm[Hg] Mckinley Ball Other [facility] Other 03-09-2022 15:30-0400 Body height 161.29 cm Arabella Arechiga Other [facility] Other 03-09-2022 15:30-0400 Body mass index (BMI) [Ratio] 36.79 kg/m2 Arabella Arechiga Other [facility] Other 03-09-2022 15:30-0400 Body temperature 97.1 [degF] Arabella Arechiga Other [facility] Other 03-09-2022 15:30-0400 Body weight 95.71 kg Arabella Arechiga Other [facility] Other 03-09-2022 15:30-0400 Diastolic blood pressure 85 mm[Hg] Arabella Arechiga Other [facility] Other 03-09-2022 15:30-0400 Respiratory rate 18 /min Arabella Arechiga Other [facility] Other 03-09-2022 15:30-0400 SaO2% (BldA) [Mass fraction] 99 % Arabella Arechiga Other [facility] Other 03-09-2022 15:30-0400 Systolic blood pressure 135 mm[Hg] Arabella Arechiga Other [facility] Other Encounters Encounter Date Encounter Type Care Provider Facility Start: 03-13-2024 End: 03-13-2024 ambulatory [facility] Work Phone: Start: 03-13-2024 End: 03-13-2024 Patient encounter procedure [facility] Work Phone: Start: 02-26-2024 Non-patient / Non-visit [facility] Start: 01-29-2024 End: 01-29-2024 ambulatory [facility] Work Phone: Start: 01-29-2024 End: 01-29-2024 Patient encounter procedure [facility] Work Phone: Start: 12-31-2023 Non-patient / Non-visit [facility] Work Phone: Start: 12-03-2023 Non-patient / Non-visit [facility] Work Phone: Start: 11-19-2023 Non-patient / Non-visit [facility] Work Phone: Start: 10-30-2023 End: 10-30-2023 ambulatory DO Mckinley Ball Work Phone: [facility] Work Phone: Start: 10-30-2023 End: 10-30-2023 Patient encounter procedure DO Mckinley Ball Work Phone: [facility] Work Phone: Start: 10-12-2023 End: 10-12-2023 ambulatory DO Mckinley Ball Work Phone: [facility] Work Phone: Start: 10-12-2023 End: 10-12-2023 Patient encounter procedure DO Mckinley Ball Work Phone: [facility] Work Phone: Start: 09-13-2023 End: 09-13-2023 ambulatory Mckinley Ball Facility:[facility] Start: 09-13-2023 End: 09-13-2023 ambulatory DO Mckinley Ball Work Phone: [facility] Work Phone: Start: 09-13-2023 End: 09-13-2023 Patient encounter procedure DO Mckinley Ball Work Phone: [facility] [address] Work Phone: Start: 09-12-2023 End: 09-12-2023 ambulatory Mckinley Ball Facility:[facility] Start: 09-12-2023 End: 09-12-2023 ambulatory DO Mckinley Ball Work Phone: [facility] Work Phone: Start: 09-12-2023 End: 09-12-2023 Patient encounter procedure DO Mckinley Alfaro Work Phone: [facility] [address] Work Phone: Start: 09-06-2023 End: 09-07-2023 ambulatory JIL HONG Not Available Start: 08-23-2023 End: 08-23-2023 ambulatory JIL HONG Not Available Start: 08-03-2023 Non-patient / Non-visit DO Augie Alfaro Work Phone: [facility] Work Phone: Start: 07-30-2023 End: 07-30-2023 Patient encounter procedure DO Mckinley Alfaro Work Phone: [facility] Work Phone: Start: 07-26-2023 End: 07-27-2023 ambulatory JIL HONG Not Available Start: 07-10-2023 End: 07-10-2023 ambulatory JIL HONG Not Available Start: 06-15-2023 End: 06-15-2023 ambulatory LYRIC Soraida RODRIGUEZ Not Available Start: 06-13-2023 Office outpatient vi sit 15 minutes Mckinley Alfaro [facility] Start: 06-13-2023 End: 06-14-2023 ambulatory JOHN JEROME [facility] [employer] Other Start: 06-12-2023 End: 06-12-2023 ambulatory DELL [...] 05-18-2023 End: 05-18-2023 ambulatory Mckinley Alfaro Other [facility] Other Start: 05-18-2023 Telephone encounter Mckinley Saleem G [facility] Start: 05-10-2023 End: 05-10-2023 ambulatory RACHELLE JETER Not Available Start: 05-08-2023 End: 05-08-2023 ambulatory JIL HONG Not Available Start: 05-07-2023 End: 05-08-2023 ambulatory ALMilvia SALGADO Not Available Start: 05-03-2023 End: 05-03-2023 ambulatory IVONNE BORREROADOLPHY [facility] Other Start: 05-03-2023 Office outpatient vi sit 15 minutes Mckinley Alfaro [facility] Start: 04-30-2023 End: 05-01-2023 ambulatory IVONNE BORREROBLEY Not Available Start: 04-25-2023 End: 04-25-2023 ambulatory JOHN B APLING Not Available Start: 04-20-2023 End: 04-21-2023 ambulatory IVONNE RICHARDSONY Not Available Start: 04-17-2023 End: 04-17-2023 ambulatory [...] 03-08-2023 End: 03-08-2023 ambulatory Mckinley Alfaro Other [facility] Other Start: 03-08-2023 Office outpatient vi sit 15 minutes Mckinley Alfaro [facility] Start: 02-07-2023 End: 02-07-2023 ambulatory Mckinley Alfaro Other [facility] Other Start: 02-07-2023 Telephone encounter Mckinley BRYANT G [facility] Start: 01-04-2023 End: 01-04-2023 ambulatory cMkinley Alfaro Other [facility] Other Start: 01-04-2023 Encounter for other preprocedural examination Mckinley Alfaro [facility] Start: 01-04-2023 Office outpatient vi sit 25 minutes Mckinley Alfaro [facility] Start: 12-21-2022 Message Mckinley chase Work Phone: [facility] Work Phone: Start: 12-12-2022 End: 12-12-[address] Gustavo Li Facility:[id number] Start: 12-12-2022 End: 12-12-2022 Subsequent hospital visit by physician Gustavo Li MD Work Phone: [facility] Comment on above: Polyp of stomach and duodenum Start: 11-16-2022 End: 11-16-2022 ambulatory Mckinley Alfaro Other [facility] Other Start: 11-16-2022 Telephone encounter Mckinley BRYANT [facility] Start: 11-01-2022 End: 11-01-2022 ambulatory Keara Bullard Other [facility] Other Start: 11-01-2022 Office outpatient vi sit 15 minutes Keara Bullard [facility] Start: 09-28-2022 End: 09-28-2022 ambulatory Niurka Oliveira Facility:[facility] Start: 09-28-2022 End: 09-28-2022 Admission to same day surgery center DO Arnoldo House Work Phone: [facility] Work Phone: Start: 09-28-2022 End: 09-28-2022 ambulatory DO Arnoldo House Work Phone: [facility] Work Phone: Start: 07-20-2022 End: 07-20-2022 ambulatory Mckinley Alfaro Other [facility] Other Start: 07-20-2022 Telephone encounter Mckinley Alfaro FP [facility] Start: 07-19-2022 End: 07-20-[address] MCKINLEY ALFARO Facility:[facility] Start: 07-04-2022 End: 07-04-2022 ambulatory Mckinley Alfaro Other [facility] Other Start: 07-04-2022 Office outpatient vi sit 25 minutes Mckinley Alfaro [facility] Start: 06-14-2022 End: 06-14-2022 ambulatory Arabella Arechiga Other [facility] Other Start: 06-14-2022 Telephone encounter Arabella Chaconl t [facility] Start: 06-13-2022 End: 06-14-[address] MCKINLEY ALFARO Facility:[facility] Start: 06-07-2022 End: 06-07-[address] MCKINLEY ALFARO Facility:[facility] Start: 05-03-2022 End: 05-04-[address] MCKINLEY ALFARO Facility:[facility] Start: 03-31-2022 End: 04-01-[address] MCKINLEY ALFARO Facility:[facility] Start: 03-09-2022 End: 03-09-2022 ambulatory Arabella Arechiga Other [facility] Other Start: 03-09-2022 Office outpatient vi sit 15 minutes Arabella Arechiga [facility] Start: 09-29-2021 End: 09-30-[address] MCKINLEY ALFARO Facility:[facility] Start: 10-05-2018 End: 10-05-2018 Emergency department patient visit MCKINLEY ALFARO [facility] Start: 10-04-2018 End: 10-04-2018 Emergency department patient visit HARJIT OLIVIA [facility] Start: 09-25-2017 End: 09-26-2017 Ambulatory DEFAULT PHYSICIAN Facility:[facility] Start: 09-07-2017 End: 09-08-2017 Ambulatory DEFAULT PHYSICIAN Facility:[facility] Procedures Date Procedure Procedure Detail [...] abdomen & pelvis w/o contrast material HARJIT EIPIPER Start: 10-04-2018 INSERT PERIPHERAL IV HARJITVic OLIVIA Start: 10-04-2018 Blood count complete auto&auto difrntl wbc HARJIT NE Plan of Treatment Date Care Activity Detail Author Start: 09-12-2023 Hepatitis B core antibody measurement [facility] Start: 09-12-2023 [facility] Start: 01-19-2023 Influenza vaccination Influenza Vaccine (#1) [facility] Start: 09-28-2022 [facility] Start: 2017 Pneumococcal Vaccine: 65+ Years (1 - PCV) Pneumococcal Vaccine: 65+ Years (1 - PCV) [facility] Start: 2002 Zoster Vaccines (1 of 2) Zoster Vaccines (1 of 2) [facility] Start: 1992 Screening for malignant neoplasm of breast Mammogram [facility] Start: 1974 DTaP/Tdap/Td Vaccines (1 - Tdap) DTaP/Tdap/Td Vaccines (1 - Tdap) [facility] Start: 1970 Hepatitis C screening Hepatitis C Screening [facility] Start: 1950 COVID-19 Vaccine (#1) COVID-19 Vaccine (#1) [facility] Start: 1952 Lipid panel Lipid Panel [facility] Start: 1952 Screening for malignant neoplasm of colon [facility] Start: 1952 Screening for osteoporosis Bone Density Scan [facility] Start: 1950 Yearly Adult Physical Yearly Adult Physical [facility] Comprehensive metabo lic 2000 panel - Serum or Plasma [facility] Hepatitis B virus jimenez rface Ab [Presence] in Serum [facility] Hepatitis B virus jimenez rface Ag [Presence] in Serum or Plasma by Immunoassay [facility] Hepatitis C virus Ig G Ab [Presence] in Serum or Plasma by Immunoassay [facility] MG Breast - bilatera l Screening [facility] Patient Education Esophageal Dil ation Hiatal Hernia (DC) Stomach Polyps [facility] Work Phone: Rheumatoid factor [Units/volume] in Serum or Plasma [facility] Thyroid stimulating immunoglobulins actual/normal in Serum [facility] XR Hip - left 2 Views [facility] Immunizations Immunization Date Immunization Notes Care Provider Fa velia 01-29-2024 influenza, high dose seasonal, preservative-free [facility] 03-08-2023 influenza virus vaccine, unspecified formulation DO Mckinley Alfaro Work Phone: [facility] 03-08-2023 influenza, high dose seasonal, preservative-free Mckinley Alfaro Other [facility] Other 04-07-2022 diphtheria, tetanus toxoids and acellular pertussis vaccine, unspecified formulation Mckinley Alfaro Other [facility] 03-01-2022 influenza virus vaccine, split virus (incl. purified surface antigen) Mckinley Alfaro Other [facility] Other 03-01-2022 influenza virus vaccine, unspecified formulation DO Mckinley Alfaro Work Phone: [facility] 08-04-2019 pneumococcal conjuga te vaccine, 13 valent Mckinley Alfaro Other [facility] Payers Date Payer Category Payer Self-pay [id number] 2022 Unknown [id number] 2015 Unknown [id number] 2015 Unknown [id number] 1959 Medicare [id number] 2.16.840.1.616725.19 1959 Self-pay [id number] 1959 Unknown [id number] 2.16.840.1.198615.19 1952 Unknown [id number] 2.16.840.1.244911.3.579.2.1 73 1952 Unknown [id number] 2.16.840.1.447232.3.579.2.1 73 1952 Unknown [id number] 2.16.840.1.899584.3.579.2.5 93 1952 Unknown [id number] 2.16.840.1.288680.3.579.2.5 93 1952 Unknown [id number] 2.16.840.1.891436.3.579.2.5 93 1952 Unknown [id number] 2.16.840.1.773604.3.579.2.5 93 1952 Unknown [id number] 2.16.840.1.561539.3.579.2.5 93 1952 Unknown [id number] 2.16.840.1.733980.3.579.2.1 069 1952 Unknown [id number] 2.16.840.1.485305.3.579.2.1 259 1952 Unknown [id number] 2.16.840.1.926425.3.579.2.1 259 1952 Unknown [id number] 2.16.840.1.183138.3.579.2.1 259 1952 Unknown [id number] 2.16.840.1.723906.3.579.2.1 259 1952 Unknown [id number] 2.16.840.1.507365.3.579.2.1 259 1952 Unknown [id number] 2.16.840.1.890574.3.579.2.1 259 1952 Unknown [id number] 2.16.840.1.328951.3.579.2.1 259 1952 Unknown [id number] 2.16.840.1.844272.3.579.2.1 259 1952 Unknown [id number] 2.16.840.1.298629.3.579.2.1 259 1952 Unknown [id number] 2.16.840.1.256751.3.579.2.1 259 1952 Unknown [id number] 2.16.840.1.803463.3.579.2.1 259 1952 Unknown [id number] 2.16.840.1.398041.3.579.2.1 259 1952 Unknown [id number] 2.16.840.1.733633.3.579.2.1 259 1952 Unknown [id number] 2.16.840.1.246778.3.579.2.1 259 1952 Unknown [id number] 2.16.840.1.586486.3.579.2.1 259 1952 Unknown [id number] 2.16.840.1.697310.3.579.2.1 259 1952 Unknown [id number] 2.16.840.1.328275.3.579.2.1 259 1952 Unknown [id number] 2.16.840.1.385100.3.579.2.1 259 1952 Unknown [id number] 2.16.840.1.459545.3.579.2.1 259 1952 Unknown [id number] 2.16.840.1.726767.3.579.2.1 259 1952 Unknown [id number] 2.16.840.1.999237.3.579.2.1 259 1952 Unknown [id number] 2.16.840.1.376389.3.579.2.1 259 1952 Unknown [id number] 2.16.840.1.100604.3.579.2.1 259 1952 Unknown [id number] 2.16.840.1.327525.3.579.2.1 259 1952 Unknown [id number] 2.16.840.1.119047.3.579.2.1 259 1952 Unknown [id number] 2.16.840.1.481013.3.579.2.1 259 1952 Unknown [id number] 2.16.840.1.166521.3.579.2.1 259 1952 Unknown [id number] 2.16.840.1.057987.3.579.2.1 259 1952 Unknown [id number] 2.16.840.1.292356.3.579.2.1 259 Medicare Medicare-OP No Part B [id number] Unknown Unknown [id number] 2.16.840.1.977512.3.579.2.5 93 Unknown [id number] 2.16.840.1.731348.3.579.2.5 31 Unknown [id number] 2.16.840.1.048482.3.579.2.5 31 Unknown [id number] 2.16.840.1.399681.3.579.2.5 31 Worker's Compensation [employer] [facility] [id number] Social History Date Type Detail Facility Unknown if ever smoked [facility] Other Sex Assigned At [facility] Other Start: 09-28-2022 Tobacco smoking status NHIS Never smoked tobacco (finding) [facility] Start: 1950 Sex Assigned At Female F [facility] Tobacco smoking status [facility] Tobacco smoking consumption unknown [facility] Work Phone: Start: 1950 Sex Assigned At Not on file [facility] Work Phone: Goals Date Patient Goal [...] Orthopedics w/ increased pain or trigger finger [facility] Other 12-14-2023 Evaluation note* Encounter Date Diagnosis [...] index [BMI] 35.0-35.9, adult (ICD-10 - Z68.35) [facility] Other 10-19-2023 Evaluation note* Encounter Date Diagnosis [...] to r/o fracture Continue Mobic and add Grayland for now. Consider PT if XR negative Feb, Right hip pain (ICD-10 - M25.551) XR to determine degree of arthritis and r/o fx. ROM exercises COntinue Mobic and add Grayland for now. Feb, Seborrheic dermatitis (ICD-10 - [...] index [BMI] 35.0-35.9, adult (ICD-10 - Z68.35) [facility] Other 08-17-2023 Evaluation note* Encounter Date Diagnosis [...] also instructed to stop Mobic and start Grayland, 7 days prior to her procedure. Dec, Gastroesophageal reflux disease with esophagitis without hemorrhage (ICD-10 - K21.00) Stable, continue medication w/o interruption Dec, Traumatic complete tear of right rotator cuff, subsequent encounter (ICD-10 - S46.011D) Scheduled for arthroscopic repair w/ Dr. Hong. 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 Refer to note in patient chart for documentation of history and physical. Providers: Gustavo Li MD (Doctor), Sara Castillo RN (Nurse), Maciel Ferrer, Retail Team Member Referring: Gustavo Li MD Medicines: See the [...] biopsy result. 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 Discussed options of treatment due to pt leaving for [place] on Sunday. 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 14 Jun, 2022 Obesity (BMI 30-39.9 ) (ICD-10 - E66.9) This patient has been instructed on a low-fat, high-fiber diet. They are instructed to reduce calories, portion sizes and snacks. It is recommended that they exercise for 30 minutes, 3-5 times weekly. [facility] Other 10-20-2022 Evaluation note* Encounter Date Diagnosis [...] with primary care provider to discuss reaction. [facility] Other Evaluation noteNo InformationNort [employer] Other Evaluation note* Diagnosis Onset Date Resolution Status Dysphagia acute [facility] Work Phone: Evaluation note* Diagnosis Polyp of stomach and duodenum documented in this encounter [facility] Work Phone: Evaluation note* Diagnosis Onset Date Resolution Status Age-related osteoporosis wit hout current pathological fracture acute Dupuytren's contracture of right hand acute GERD (gastroesophageal reflux disease) acute Hypertension acute Inflammatory polyarthritis a cute Lumbar spondylosis acute Trigger finger acute Medicare annual wellness visit, subsequent noneactive Screening mammogram for breast cancer noneactive [facility] Work Phone: Evaluation note* Diagnosis Onset [...] Strain of hip and thigh acut e [facility] Work Phone: Evaluation note* Diagnosis Onset Date Resolution Status Left hip pain acute Primary osteoarthritis of hip acute Strain of hip and thigh acut e Age-related osteoporosis wit hout current pathological fracture acute Fibromyalgia acute GERD (gastroesophageal reflux disease) acute Hypertension acute Inflammatory polyarthritis a cute Lumbar spondylosis acute Trigger finger acute [facility] Work Phone: Evaluation note* Diagnosis Onset Date Resolution Status Age-related osteoporosis wit hout current pathological fracture acute Fibromyalgia acute GERD (gastroesophageal reflux disease) acute Hypertension acute Lumbar spondylosis acute Opiate analgesic use agreement exists acute Psoriatic arthritis acute [facility] Work Phone: Evaluation note* Diagnosis Onset Date Resolution Status Age-related osteoporosis wit hout current pathological fracture acute Fibromyalgia acute GERD (gastroesophageal reflux disease) acute Hypertension acute Lumbar spondylosis acute Opiate analgesic use agreement exists acute Psoriatic arthritis acute Age-related osteoporosis wit hout current pathological fracture acute Fibromyalgia acute GERD (gastroesophageal reflux disease) acute Hypertension acute Lumbar spondylosis acute Psoriatic arthritis acute [facility] Work Phone: Hisgnyh general Narrative - Reported* Type Description Date Medical History Hypertension Medical History Acid reflux Medical History Hiatal hernia Surgical History back surgery x3 Surgical History Neck Surgery Surgical History shoulder arthroscopy Surgical History hysterectomy Surgical History cholecystectomy Hospitalization History see above [facility] Other Hisnpat general Narrative - Reported* Type Description Date Medical History Hypertension Medical History Acid reflux Medical History Hiatal hernia Surgical History back surgery x3 Surgical History Neck Surgery Surgical History shoulder arthroscopy Surgical History hysterectomy Surgical History cholecystectomy Surgical History EGD w/ bx and dilatation 09/2022 Hospitalization History see above [facility] Other Hisusio general Narrative - Reported* Type Description Date Medical History Hypertension Medical History Acid reflux Medical History Hiatal hernia Surgical History back surgery x3 Surgical History Neck Surgery Surgical History shoulder arthroscopy Surgical History hysterectomy Surgical History cholecystectomy Surgical History EGD w/ bx and dilatation 09/2022 Surgical History Right shoulder arthroscopy 02/07 23 Hospitalization History see above [facility] Other History general Narrative - Reported* Type Description Date Medical History Hypertension Medical History Acid reflux Medical History Hiatal hernia Surgical History back surgery x3 Surgical History Neck Surgery Surgical History shoulder arthroscopy Surgical History hysterectomy Surgical History cholecystectomy Surgical History EGD w/ bx and dilatation 09/2022 Surgical History Right shoulder arthroscopy 02/07 23 Surgical History Endoscopic US 11/2022 Hospitalization History see above [facility] Other Hospital Discharge instructions Additional Instructions DISCHARGE [...] if you have any problems. -[facility] number [phone]: Summary Purpose Family History [...] Opiate analgesic use agreement exists Psoriatic arthritis Chief Complaint 3 month follow up Discuss Therapy Reason for Visit Age-related osteopor osis without current pathological fracture Fibromyalgia GERD (gastroesophageal reflux disease) Hypertension Lumbar spondylosis Opiate analgesic use agreement exists Psoriatic arthritis Age-related osteoporosis without current pathological fracture Fibromyalgia GERD (gastroesophageal reflux disease) Hypertension Lumbar spondylosis Psoriatic arthritis Additional Source Comments INFORMATION SOURCE (unrecogn ized section and content) DATE CREATED AUTHOR 11/08/2017 [facility] DATE CREATED AUTHOR AUTHOR'S ORGANIZ ATION 10/13/2018 [facility] DATE CREATED AUTHOR AUTHOR'S ORGANIZ ATION 07/21/2022 [facility] DATE CREATED AUTHOR AUTHOR'S ORGANIZ ATION 12/21/2022 [facility] DATE CREATED AUTHOR AUTHOR'S ORGANIZ ATION 12/22/2022 [facility] DATE CREATED AUTHOR AUTHOR'S ORGANIZ ATION 09/10/[address] [facility] EPIC DATE CREATED AUTHOR AUTHOR'S ORGANIZ ATION 09/21/2023 [facility] REASON FOR VISIT (unrecogniz ed section and content) Reason Comments Other EGD/EUS D49.0 [id number] Care Teams (unrecognized sec tion and content) [...] Active Niurka Oliveira MD Attending Provider Active Roll Picker Relationship Specialty Start Date End Date Mckinley Alfaro DO PCP - General 12/08/22 Team Status: Inactive Member Role Status Dates Mckinley Alfaro DO Primary Care Provide r, Attending Provider Active Start: July 30, 2023 End: July 30, 2023 Team Status: Active Member Role Status Dates Mckinley Alfaro , DO Primary Care Provide r, Attending Provider Active Start: November 19, 2023 Team Status: Active Member Role Status Dates Mckinley Alfaro , DO Primary Care Provider Active Start: December 03, 2023 Tano Tsai MD Attending Provider Active St art: December 03, 2023 Team Status: Active Member Role Status Dates Mckinley Alfaro , DO Primary Care Provider Active Start: December 31, 2023 Tnao Tsai MD Attending Provider Active St art: December 31, 2023 Team Status: Inactive Member Role Status Dates Mckinley Alfaro , DO Primary Care Provide r, Attending Provider Active Start: January 29, 2024 End: January 29, 2024 Team Status: Active Member Role Status Dates Mckinley Alfaro , DO Primary Care Provider Active Start: February 26, 2024 Tano Tsai MD Attending Provider Active St art: February 26, 2024 Team Status: Inactive Member Role Status Dates Mckinley Alfaro , DO Primary Care Provide r, Attending Provider Active Start: March 13, 2024 End: March 13, 2024 Goals (unrecognized section and content) Goals [...] BE BASED ON THE PRIMARY CLINICAL RECORDS. [facility] [employer] provides no warranty or guarantee of the accuracy or completeness of information in this document.
== END 2024-03-27 11:59 | disposition home or self-care (01) ==
LOC: CT 11:58
PROVIDERS: Visit Provider Internal Medicine
DX: R10.9 Unspecified abdominal pain (principal); K76.0 Fatty (change of) liver, not elsewhere classified
CPT/HCPCS: 74177; Q9967

== ENCOUNTER 2024-04-21 08:09 | Outpatient (OUT) | payer MEDICARE, OTHER, SELFPAY ==
--- OUTSIDE RECORDS SUMMARY | 2024-04-21 08:41 | XMS_ITS | CCD ---
Author Organization [facility] Care Team Providers Care Can Carrier Name Role Phone PHYSICIAN, DEFAULT Unavailable Unavailable [...] Provider U filippoailYSABEL Hough Attending Unavailable APLING, OJHN B Referring Unavailable TATTERSALL, RACHELLE Attending Unavailable [...] Substance Allergy 10-30-19 24 Redness of Skin [facility] Dihydrofolate Reductase Inhibitors (antibiotic) (1 source) Trimethoprim Drug Allergy 10-30-19 24 Unknown Reaction [facility] Nitrofurantoin (1 source) Nitrofurantoin Drug Allergy 10-30-19 24 Comment:Macrob id [facility] Penicillins (antibiotic) (1 source) Penicillins Drug Allergy 10-30-19 24 Swelling of Lip/Tongue/Thr oat [facility] Sulfonamides (antibiotic) (1 source) Sulfamethoxazole Drug Allergy 10-30-19 24 Unknown Reaction [facility] tiZANidine (1 source) tiZANidine Drug Allergy 10-30-19 24 Insomnia [facility] (6 sources) Penicillin G Drug Allergy anaphylaxis [facility] Other (1 source) Penicillin Drug Allergy 01-23-20 15 [facility] Repository (7 sources) Adhesive Tape; Translations: [adhesive tape] Propensity to adverse reactions 02-24-20 17 Redness of Skin [facility] (8 sources) Penicillins; Translations: [Penicillins] Allergy to substance 02-24-20 17 Swelling of Lip/Tongue/Thr oat [facility] (6 sources) Adhesive Tape Drug allergy 04-19-20 16 Unknown [facility] Other (11 sources) Nitrofurantoin Drug Allergy 07-30-19 Comment:Macrob id [facility] (6 sources) Sulfamethoxazole / Trimethoprim Drug Allergy Unknown [facility] Other (6 sources) tiZANidine Comfort Pac *MUSCULOSKELETAL THERAPY AG Propensity to adverse reactions Comment:Could not sleep/rest. [facility] Other (6 sources) Substance with penicillin structure and antibacterial mechanism of action (substance) Drug allergy 04-19-20 16 Unknown [facility] Other (6 sources) Sulfamethoxazole; Translations: [sulfamethoxazole] Drug Allergy 07-30-19 24 Unknown Reaction [facility] (6 sources) tiZANidine; Translations: [tizanidine] Drug Allergy 07-30-19 24 Insomnia [facility] (6 sources) Trimethoprim; Translations: [trimethoprim] Drug Allergy 07-30-19 Unknown Reaction [facility] (1 source) Nitrofurantoin Drug Allergy 07-30-19 [facility] Repository Medications Current Medications Medication Drug [...] th every twenty-four hours Biotin Maximum Strength 44971 MCG 1 tablet Orally Once a day PRN Active take 1 tablet by romulo th every twenty-four hours Biotin Maximum Strength 40446 MCG 1 tablet Orally Once a day PRN Active Biotin Maximum Strength 37895 MCG (7 sources) take 1 tablet by romulo th once daily as needed Biotin Maximum Strength 92160 MCG 1 tablet Orally Once a day PRN Active take 1 tablet by mouth once gayla y Biotin Maximum Strength 24894 MCG 1 tablet Orally Once a day [...] 1:00am Start: 05-17-2023 take 1 capsule by [facility] every twenty-four hours Potassium Chloride [...] injection (9 sources) Bisphosphonate Start: 07-26-2023 Zoledronic Ytov-Kobesnqp-Lssce (Reclast) 5 mg/100 mL piggyback Active EACH [...] (14 sources) Thiazide Diuretic, Angiotensin 2 Receptor [place]ca Start: 08-24-2017 End: 04-02-2018 take 1 tablet by mouth once daily Valsartan-Hydrochlo rothiazide Discontinued 1 TAB PO Daily August 24, 2017 12:00am April 02, 2018 10:59am Start: 02-23-2017 End: 04-20-2017 take 1 tablet by mouth once daily Valsartan-Hydrochlorothiazide Discontinu ed 1 TAB PO Daily February 23, 2017 12:00am April 20, 2017 9:52am hydrocortisone 10 mg/ml / neomycin 3.5 mg/ml / polymyxin b 18041 unt/ml otic solution (12 sources) Aminoglycoside Antibacterial, Polymyxin-class Antibacterial, Corticosteroid Start: 03-09-2022 Eaupkria-Uuudzdagn-AM 3.5-31254-2 4 drops into affected ear Otic Three [...] 8:46am Meclizine (12 sources) Antiemetic Meclizine HCl AK N Not-Taking/PRN Meclizine HCl AK N Not-Taking Meclizine HCl AK N Active methylPREDNISolone 4 mg oral tablet [...] 24, 2017 12:00am October 21, 2018 8:46am [place] 9-Ecj-Ujn-Fish Oil (Fish Oil) 1,000 mg (120 mg-180 mg) Capsule (7 sources) Start: 02-23-2017 End: 08-24-2017 take 1 capsule by mouth once daily [place] 7-Ula-Dlh-Fish Oil (Fish Oil) 1,000 mg (120 mg-180 mg) Capsule Discontinued 1 CAP PO Daily February 23, 2017 12:00am August 24, 2017 7:39am [place] Red (7 sources) Start: 04-02-2018 End: 09-28-2022 take 1 tablet by mouth once daily [place] Red Discontinued 1 TAB PO Daily April [...] aftercare (2 sources) Drug therapy finding; Translations: [assisted (current) use of opiate analgesic] 10-30-2023 Episodic Other aftercare (2 sources) 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 [facility] Comment on above: Test Ordered: [id number] Sedimentation Rate-WestergrenSedimentation Rate-Westergren 17 mm/hr CB Reference Range: 0-40Performed at: - [facility] [id number] [place], [place] [id number] Director: Natanael Banegas PhD, Phone: [phone] Basophils Auto (Bld) [#/Vol] on 12-31-2023 Basophils (Bld) [#/Vol] 0.0 10 3/uL 0.0-0.1 [facility] Basophils/100 WBC Auto (Bld) on 12-31-2023 Basophils/100 WBC (Bld) 0.5 % 0.2-2.0 [facility] Eosinophils/100 WBC Auto (Bl d)on 12-31-2023 Eosinophils/100 WBC (Bld) 4.9 % 0.9-7.0 [facility] Erythrocyte distribution wid th Auto (RBC) [Ratio]on 12-31-2023 Erythrocyte distribution width (RBC) [Ratio] 15.1 % High 11.0-15.0 [facility] Estimated glomerular filtrat ion rate (GFR) non- Americanon 12-31-2023 GFR/1.73 sq M.predicted among non-blacks MDRD (S/P/Bld) [Vol rate/Area] 55 mL/min/{1.73_m2} Low >=60 [facility] Globulin Calc (S) [Mass/Vol] on 12-31-2023 Globulin (S) [Mass/Vol] 3.2 g/dL [facility] Hematocrit Auto (Bld) [Volum e fraction]on 12-31-2023 Hematocrit (Bld) [Volume fraction] 35.0 % Low 36.0-48.0 [facility] Hemoglobin [Mass/volume] in Bloodon 12-31-2023 Hemoglobin (Bld) [Mass/Vol] 11.4 g/dL Low 12.0-16.0 [facility] Laboratory - Chemistry and C hemistry - challengeon 12-31-2023 Albumin [Mass/Vol] 3.3 g/dL Low 3.4-5.0 [facility] ALP [Catalytic activity/Vol] 93 U/L 46-116 [facility] ALT [Catalytic activity/Vol] 31 U/L 14-59 [facility] AST [Catalytic activity/Vol] 20 U/L 15-37 [facility] Bilirubin [Mass/Vol] 0.6 mg/dL 0.2-1.0 [facility] Bilirubin.direct [Mass/Vol] 0.1 mg/dL 0.0-0.2 [facility] Creatinine [Mass/Vol] 1.00 mg/dL 0.55-1.02 [facility] GFR/1.73 sq M.predicted MDRD (S/P/Bld) [Vol rate/Area] mL/min/{1.73_m2} >=60 [facility] Protein [Mass/Vol] 6.5 g/dL 6.4-8.2 [facility] Laboratory - Hematology and Cell countson 12-31-2023 ESR (Bld) [Velocity] 19 mm/h <=30 [facility] Immature granulocytes/100 WBC (Bld) 0.4 % 0.0-0.5 [facility] Leukocytes [#/volume] correc loan for nucleated erythrocytes in Blood by Automated counon 12-31-2023 WBC corrected for nucl RBC Auto (Bld) [#/Vol] 5.7 10 3/uL 4.0-11.0 [facility] Lymphocytes Auto (Bld) [#/Vo l]on 12-31-2023 Lymphocytes (Bld) [#/Vol] 1.4 10 3/uL 1.2-3.8 [facility] Lymphocytes/100 WBC Auto (Bl d)on 12-31-2023 Lymphocytes/100 WBC (Bld) 24.7 % 20.5-60.0 [facility] MCH Auto (RBC) [Entitic mass ]on 12-31-2023 MCH (RBC) [Entitic mass] 29.2 pg 26.7-34.0 [facility] MCHC Auto (RBC) [Mass/Vol]on 12-31-2023 MCHC (RBC) [Mass/Vol] 32.6 g/dL 29.9-35.2 [facility] MCV Auto (RBC) [Entitic vol] on 12-31-2023 MCV (RBC) [Entitic vol] 89.5 fL 81.0-99.0 [facility] Monocytes Auto (Bld) [#/Vol] on 12-31-2023 Monocytes (Bld) [#/Vol] 0.6 10 3/uL 0.3-0.8 [facility] Monocytes/100 WBC Auto (Bld) on 12-31-2023 Monocytes/100 WBC (Bld) 10.4 % 1.7-12.0 [facility] Neutrophils Auto (Bld) [#/Vo l]on 12-31-2023 Neutrophils (Bld) [#/Vol] 3.4 10 3/uL 1.4-6.5 [facility] Neutrophils/100 WBC Auto (Bl d)on 12-31-2023 Neutrophils/100 WBC (Bld) 59.1 % 43.0-75.0 [facility] No Panel Informationon 12-30 Eosinophils # (Auto) 0.3 10 3/uL 0.0-0.7 [facility] Immature Granulocyte # (Auto) 0.02 10 3/uL 0.00-0.03 [facility] Platelet mean volume Auto (B ld) [Entitic vol]on 12-31-2023 Platelet mean volume (Bld) [Entitic vol] 11.7 fL 9.5-13.5 [facility] Platelets Auto (Bld) [#/Vol] on 12-31-2023 Platelets (Bld) [#/Vol] 228 10 3/uL 150-450 [facility] RBC Auto (Bld) [#/Vol]on RBC (Bld) [#/Vol] 3.91 10 6/uL Low 4.20-5.40 [facility] Serum or plasma albumin/glob ulin mass ratioon 12-31-2023 Albumin/Globulin [Mass ratio] 1.0 {ratio} [facility] Basophils Auto (Bld) [#/Vol] on 12-03-2023 Basophils (Bld) [#/Vol] 0.0 10 3/uL 0.0-0.1 [facility] Basophils/100 WBC Auto (Bld) on 12-03-2023 Basophils/100 WBC (Bld) 0.4 % 0.2-2.0 [facility] Eosinophils/100 WBC Auto (Bl d)on 12-03-2023 Eosinophils/100 WBC (Bld) 3.2 % 0.9-7.0 [facility] Erythrocyte distribution wid th Auto (RBC) [Ratio]on 12-03-2023 Erythrocyte distribution width (RBC) [Ratio] 14.5 % 11.0-15.0 [facility] Estimated glomerular filtrat ion rate (GFR) non- Americanon 12-03-2023 GFR/1.73 sq M.predicted among non-blacks MDRD (S/P/Bld) [Vol rate/Area] 59 mL/min/{1.73_m2} Low >=60 [facility] Globulin Calc (S) [Mass/Vol] on 12-03-2023 Globulin (S) [Mass/Vol] 3.6 g/dL [facility] Hematocrit Auto (Bld) [Volum e fraction]on 12-03-2023 Hematocrit (Bld) [Volume fraction] 37.9 % 36.0-48.0 [facility] Hemoglobin [Mass/volume] in Bloodon 12-03-2023 Hemoglobin (Bld) [Mass/Vol] 12.3 g/dL 12.0-16.0 [facility] Laboratory - Chemistry and C hemistry - challengeon 12-03-2023 Albumin [Mass/Vol] 3.4 g/dL 3.4-5.0 [facility] ALP [Catalytic activity/Vol] 95 U/L 46-116 [facility] ALT [Catalytic activity/Vol] 27 U/L 14-59 [facility] AST [Catalytic activity/Vol] 23 U/L 15-37 [facility] Bilirubin [Mass/Vol] 0.5 mg/dL 0.2-1.0 [facility] Bilirubin.direct [Mass/Vol] 0.1 mg/dL 0.0-0.2 [facility] Creatinine [Mass/Vol] 0.94 mg/dL 0.55-1.02 [facility] GFR/1.73 sq M.predicted MDRD (S/P/Bld) [Vol rate/Area] mL/min/{1.73_m2} >=60 [facility] Protein [Mass/Vol] 7.0 g/dL 6.4-8.2 [facility] Laboratory - Hematology and Cell countson 12-03-2023 ESR (Bld) [Velocity] 22 mm/h <=30 [facility] Immature granulocytes/100 WBC (Bld) 0.1 % 0.0-0.5 [facility] Leukocytes [#/volume] correc loan for nucleated erythrocytes in Blood by Automated counon 12-03-2023 WBC corrected for nucl RBC Auto (Bld) [#/Vol] 7.5 10 3/uL 4.0-11.0 [facility] Lymphocytes Auto (Bld) [#/Vo l]on 12-03-2023 Lymphocytes (Bld) [#/Vol] 1.6 10 3/uL 1.2-3.8 [facility] Lymphocytes/100 WBC Auto (Bl d)on 12-03-2023 Lymphocytes/100 WBC (Bld) 21.7 % 20.5-60.0 [facility] MCH Auto (RBC) [Entitic mass ]on 12-03-2023 MCH (RBC) [Entitic mass] 28.9 pg 26.7-34.0 [facility] MCHC Auto (RBC) [Mass/Vol]on 12-03-2023 MCHC (RBC) [Mass/Vol] 32.5 g/dL 29.9-35.2 [facility] MCV Auto (RBC) [Entitic vol] on 12-03-2023 MCV (RBC) [Entitic vol] 89.0 fL 81.0-99.0 [facility] Monocytes Auto (Bld) [#/Vol] on 12-03-2023 Monocytes (Bld) [#/Vol] 0.7 10 3/uL 0.3-0.8 [facility] Monocytes/100 WBC Auto (Bld) on 12-03-2023 Monocytes/100 WBC (Bld) 9.1 % 1.7-12.0 [facility] Neutrophils Auto (Bld) [#/Vo l]on 12-03-2023 Neutrophils (Bld) [#/Vol] 4.9 10 3/uL 1.4-6.5 [facility] Neutrophils/100 WBC Auto (Bl d)on 12-03-2023 Neutrophils/100 WBC (Bld) 65.5 % 43.0-75.0 [facility] No Panel Informationon 12-02 Eosinophils # (Auto) 0.2 10 3/uL 0.0-0.7 [facility] Immature Granulocyte # (Auto) 0.01 10 3/uL 0.00-0.03 [facility] Platelet mean volume Auto (B ld) [Entitic vol]on 12-03-2023 Platelet mean volume (Bld) [Entitic vol] 11.6 fL 9.5-13.5 [facility] Platelets Auto (Bld) [#/Vol] on 12-03-2023 Platelets (Bld) [#/Vol] 250 10 3/uL 150-450 [facility] RBC Auto (Bld) [#/Vol]on RBC (Bld) [#/Vol] 4.26 10 6/uL 4.20-5.40 [facility] Serum or plasma albumin/glob ulin mass ratioon 12-03-2023 Albumin/Globulin [Mass ratio] 0.9 {ratio} [facility] Basophils Auto (Bld) [#/Vol] on 11-19-2023 Basophils (Bld) [#/Vol] 0.0 10 3/uL 0.0-0.1 [facility] Basophils/100 WBC Auto (Bld) on 11-19-2023 Basophils/100 WBC (Bld) 0.3 % 0.2-2.0 [facility] Eosinophils/100 WBC Auto (Bl d)on 11-19-2023 Eosinophils/100 WBC (Bld) 1.7 % 0.9-7.0 [facility] Erythrocyte distribution wid th Auto (RBC) [Ratio]on 11-19-2023 Erythrocyte distribution width (RBC) [Ratio] 14.0 % 11.0-15.0 [facility] Estimated glomerular filtrat ion rate (GFR) non- Americanon 11-19-2023 GFR/1.73 sq M.predicted among non-blacks MDRD (S/P/Bld) [Vol rate/Area] 59 mL/min/{1.73_m2} Low >=60 [facility] Globulin Calc (S) [Mass/Vol] on 11-19-2023 Globulin (S) [Mass/Vol] 3.8 g/dL [facility] Hematocrit Auto (Bld) [Volum e fraction]on 11-19-2023 Hematocrit (Bld) [Volume fraction] 38.3 % 36.0-48.0 [facility] Hemoglobin [Mass/volume] in Bloodon 11-19-2023 Hemoglobin (Bld) [Mass/Vol] 12.2 g/dL 12.0-16.0 [facility] Laboratory - Chemistry and C hemistry - challengeon 11-19-2023 Albumin [Mass/Vol] 3.7 g/dL 3.4-5.0 [facility] ALP [Catalytic activity/Vol] 104 U/L 46-116 [facility] ALT [Catalytic activity/Vol] 24 U/L 14-59 [facility] AST [Catalytic activity/Vol] 17 U/L 15-37 [facility] Bilirubin [Mass/Vol] 0.4 mg/dL 0.2-1.0 [facility] Bilirubin.direct [Mass/Vol] 0.1 mg/dL 0.0-0.2 [facility] Creatinine [Mass/Vol] 0.94 mg/dL 0.55-1.02 [facility] GFR/1.73 sq M.predicted MDRD (S/P/Bld) [Vol rate/Area] mL/min/{1.73_m2} >=60 [facility] Protein [Mass/Vol] 7.5 g/dL 6.4-8.2 [facility] Laboratory - Hematology and Cell countson 11-19-2023 ESR (Bld) [Velocity] 22 mm/h <=30 [facility] Immature granulocytes/100 WBC (Bld) 0.2 % 0.0-0.5 [facility] Leukocytes [#/volume] correc loan for nucleated erythrocytes in Blood by Automated counon 11-19-2023 WBC corrected for nucl RBC Auto (Bld) [#/Vol] 9.3 10 3/uL 4.0-11.0 [facility] Lymphocytes Auto (Bld) [#/Vo l]on 11-19-2023 Lymphocytes (Bld) [#/Vol] 1.4 10 3/uL 1.2-3.8 [facility] Lymphocytes/100 WBC Auto (Bl d)on 11-19-2023 Lymphocytes/100 WBC (Bld) 15.3 % Low 20.5-60.0 [facility] MCH Auto (RBC) [Entitic mass ]on 11-19-2023 MCH (RBC) [Entitic mass] 27.7 pg 26.7-34.0 [facility] MCHC Auto (RBC) [Mass/Vol]on 11-19-2023 MCHC (RBC) [Mass/Vol] 31.9 g/dL 29.9-35.2 [facility] MCV Auto (RBC) [Entitic vol] on 11-19-2023 MCV (RBC) [Entitic vol] 87.0 fL 81.0-99.0 [facility] Monocytes Auto (Bld) [#/Vol] on 11-19-2023 Monocytes (Bld) [#/Vol] 0.7 10 3/uL 0.3-0.8 [facility] Monocytes/100 WBC Auto (Bld) on 11-19-2023 Monocytes/100 WBC (Bld) 7.2 % 1.7-12.0 [facility] Neutrophils Auto (Bld) [#/Vo l]on 11-19-2023 Neutrophils (Bld) [#/Vol] 7.0 10 3/uL High 1.4-6.5 [facility] Neutrophils/100 WBC Auto (Bl d)on 11-19-2023 Neutrophils/100 WBC (Bld) 75.3 % High 43.0-75.0 [facility] No Panel Informationon 11-18 Eosinophils # (Auto) 0.2 10 3/uL 0.0-0.7 [facility] Immature Granulocyte # (Auto) 0.02 10 3/uL 0.00-0.03 [facility] Platelet mean volume Auto (B ld) [Entitic vol]on 11-19-2023 Platelet mean volume (Bld) [Entitic vol] 11.4 fL 9.5-13.5 [facility] Platelets Auto (Bld) [#/Vol] on 11-19-2023 Platelets (Bld) [#/Vol] 296 10 3/uL 150-450 [facility] RBC Auto (Bld) [#/Vol]on RBC (Bld) [#/Vol] 4.40 10 6/uL 4.20-5.40 [facility] Serum or plasma albumin/glob ulin mass ratioon 11-19-2023 Albumin/Globulin [Mass ratio] 1.0 {ratio} [facility] XR chest 2V*on 09-13-2023 XR chest 2V* [facility] Main [address] [address] XRay Report Signed Patient: Lizzy Welsh MR#: [id number] : 1950 Acct:[id number] Age/Sex: 73 / F ADM Date: 09/13/23 Loc: ICXD Room: Type: [facility] Attending Dr: Tano Tsai MD Copies to: [...] Anny Powell M.D.09/13/2023 5:13 PM Dictation Location: [place] [address] Transcribed By: [facility] 09/13/231712 Dictated By: Anny Powell II, MD 09/13/231711 Signed By: 09/13/231712 Normal [facility] XR hand BI 2Von 09-13-2023 XR hand BI 2V [facility] Main [address] [address] XRay Report Signed Patient: Lizzy Welsh MR#: [id number] : 1950 Acct:[id number] Age/Sex: 73 / F ADM Date: 09/13/23 Loc: ICXD Room: Type: [facility] Attending Dr: Tano Tsai MD Copies to: [...] Anny Powell M.D.09/13/2023 5:21 PM Dictation Location: [place] [address] Transcribed By: [facility] 09/13/23 172 Dictated By: Anny Powell II, MD 09/13/23 1719 Signed By: 09/13/23 1721 Normal [facility] Alanine aminotransferase [En zymatic activity/volume] in Serum or PlasmaOrdered By: Tano Tsai on 09-12-2023 ALT [Catalytic activity/Vol] 18 U/L 7-52 [facility] Albumin [Mass/volume] in Ser um or Plasma by Bromocresol green (BCG) dye binding methoOrdered By: Tano Tsai on 09-12-2023 Albumin BCG dye [Mass/Vol] 4.2 g/dL 3.5-5.7 [facility] Alkaline phosphatase [Enzyma tic activity/volume] in Serum or PlasmaOrdered By: Tano Tsai on 09-12-2023 ALP [Catalytic activity/Vol] 82 U/L 34-104 [facility] Aspartate aminotransferase [ Enzymatic activity/volume] in Serum or PlasmaOrdered By: Tano Tsai on 09-12-2023 AST [Catalytic activity/Vol] 16 U/L 13-39 [facility] Basophils Auto (Bld) [#/Vol] Ordered By: Tano Tsai on 09-12-2023 Basophils (Bld) [#/Vol] 0.1 10*3/uL 0.0-0.2 [facility] Basophils/100 WBC Auto (Bld) Ordered By: Tano Tsai on 09-12-2023 Basophils/100 WBC (Bld) 0.7 % . [facility] Bilirubin.total [Mass/volume ] in Serum or PlasmaOrdered By: Tano Tsai on 09-12-2023 Bilirubin [Mass/Vol] 0.5 mg/dL 0.3-1.0 [facility] C reactive protein [Mass/vol ume] in Serum or PlasmaOrdered By: Tano Tsai on 09-12-2023 CRP [Mass/Vol] 2.1 mg/dL 0.0-0.5 [facility] C-Reactive Proteinon 024 C-Reactive Protein 2.1 mg/dL High 0.0-0.5 [facility] Comment on above: Result Comment: PERF ORMED BY: [place] [address] PATHOLOGIST GRID CASTER VICENTE MONTEZ M.D. Performed By: #### C MP, ESR, PTH, CBC, CRP #### [facility] [address] [place] [address] [place] #### HBCAB, HBSAB, HBSAG, HCV RX PCR #### [facility] , Calcium [Mass/volume] in Ser um or PlasmaOrdered By: Tano Tsai on 09-12-2023 Calcium [Mass/Vol] 9.9 mg/dL 8.6-10.3 [facility] Carbon dioxide, total [Moles /volume] in Serum or PlasmaOrdered By: Tano Tsai on 09-12-2023 CO2 [Moles/Vol] 31.5 mmol/L 21.0-31.0 [facility] Chloride [Moles/volume] in S concha or PlasmaOrdered By: Tano Tsai on 09-12-2023 Chloride [Moles/Vol] 105 mmol/L 98-107 [facility] Complete Blood Count Auto Di ffon 09-12-2023 Basophils (Bld) [#/Vol] 0.1 10*3/uL Normal 0.0-0.2 [facility] Comment on above: Performed By: #### C MP, ESR, PTH, CBC, CRP #### [address] #### HBCAB, HBSAB, HBSAG, HCV RX PCR #### [facility] , Basophils/100 WBC (Bld) 0.7 % Normal . T eladio [facility] Comment on above: Performed By: #### C MP, ESR, PTH, CBC, CRP #### [address] #### HBCAB, HBSAB, HBSAG, HCV RX PCR #### [facility] , Eosinophils (Bld) [#/Vol] 0.3 10*3/uL Normal 0.0-0.45 [facility] Comment on above: Performed By: #### C MP, ESR, PTH, CBC, CRP #### [place] [address] [place] #### HBCAB, HBSAB, HBSAG, HCV RX PCR #### [facility] , Eosinophils/100 WBC (Bld) 3.3 % Normal . [facility] Comment on above: Performed By: #### C MP, ESR, PTH, CBC, CRP #### [place] [address] [place] #### HBCAB, HBSAB, HBSAG, HCV RX PCR #### [facility] , Erythrocyte distribution width (RBC) [Ratio] 14.8 % Normal 11.9-15.3 [facility] Comment on above: Performed By: #### C MP, ESR, PTH, CBC, CRP #### [address] #### HBCAB, HBSAB, HBSAG, HCV RX PCR #### [facility] , Hematocrit (Bld) [Volume fraction] 40.9 % Normal 34.0-46.4 [facility] Comment on above: Performed By: #### C MP, ESR, PTH, CBC, CRP #### [address] #### HBCAB, HBSAB, HBSAG, HCV RX PCR #### [facility] , Hemoglobin (Bld) [Mass/Vol] 13.2 g/dL Normal 11.8-15.4 [facility] Comment on above: Performed By: #### C MP, ESR, PTH, CBC, CRP #### [address] #### HBCAB, HBSAB, HBSAG, HCV RX PCR #### [facility] , Lymphocytes (Bld) [#/Vol] 1.9 10*3/uL Normal 1.00-4.8 [facility] Comment on above: Performed By: #### C MP, ESR, PTH, CBC, CRP #### [address] #### HBCAB, HBSAB, HBSAG, HCV RX PCR #### [facility] , Lymphocytes/100 WBC (Bld) 21.1 % Normal . [facility] Comment on above: Performed By: #### C MP, ESR, PTH, CBC, CRP #### [address] #### HBCAB, HBSAB, HBSAG, HCV RX PCR #### [facility] , MCH (RBC) [Entitic mass] 27.6 pg Normal 24.7-34.3 [facility] Comment on above: Performed By: #### C MP, ESR, PTH, CBC, CRP #### [address] #### HBCAB, HBSAB, HBSAG, HCV RX PCR #### [facility] , MCV (RBC) [Entitic vol] 85.2 fL Normal 80-100 [facility] Comment on above: Performed By: #### C MP, ESR, PTH, CBC, CRP #### [address] #### HBCAB, HBSAB, HBSAG, HCV RX PCR #### [facility] , Mean Corpuscular HGB Conc 32.4 g/dL Normal 32.0-35.0 [facility] Comment on above: Performed By: #### C MP, ESR, PTH, CBC, CRP #### [address] #### HBCAB, HBSAB, HBSAG, HCV RX PCR #### [facility] , Monocytes (Bld) [#/Vol] 1.0 10*3/uL High 0.0-0.8 [facility] Comment on above: Performed By: #### C MP, ESR, PTH, CBC, CRP #### [address] #### HBCAB, HBSAB, HBSAG, HCV RX PCR #### [facility] , Monocytes/100 WBC (Bld) 10.5 % Normal . [facility] Comment on above: Performed By: #### C MP, ESR, PTH, CBC, CRP #### [place] [address] [place] #### HBCAB, HBSAB, HBSAG, HCV RX PCR #### [facility] , Neutrophils (Bld) [#/Vol] 5.9 10*3/uL Normal 1.8-7.7 [facility] Comment on above: Performed By: #### C MP, ESR, PTH, CBC, CRP #### [address] #### HBCAB, HBSAB, HBSAG, HCV RX PCR #### [facility] , Neutrophils/100 WBC (Bld) 64.4 % Normal . [facility] Comment on above: Performed By: #### C MP, ESR, PTH, CBC, CRP #### [place] [address] [place] #### HBCAB, HBSAB, HBSAG, HCV RX PCR #### [facility] , NRBC% 0.2 /100{WBC} Normal 0-0.5 [facility] Comment on above: Performed By: #### C MP, ESR, PTH, CBC, CRP #### [address] #### HBCAB, HBSAB, HBSAG, HCV RX PCR #### [facility] , Platelet mean volume (Bld) [Entitic vol] 10.3 fL Normal 6.3-10.7 [facility] Comment on above: Performed By: #### C MP, ESR, PTH, CBC, CRP #### [address] #### HBCAB, HBSAB, HBSAG, HCV RX PCR #### [facility] , Platelets (Bld) [#/Vol] 253 10*3/uL Normal 150-450 [facility] Comment on above: Performed By: #### C MP, ESR, PTH, CBC, CRP #### [place] [address] [place] #### HBCAB, HBSAB, HBSAG, HCV RX PCR #### [facility] , RBC (Bld) [#/Vol] 4.80 10*6/uL Normal 3.60-5.00 [facility] Comment on above: Performed By: #### C MP, ESR, PTH, CBC, CRP #### [place] [address] [place] #### HBCAB, HBSAB, HBSAG, HCV RX PCR #### [facility] , WBC (Bld) [#/Vol] 9.2 10*3/uL Normal 3.8-11.6 [facility] Comment on above: Performed By: #### C MP, ESR, PTH, CBC, CRP #### [address] #### HBCAB, HBSAB, HBSAG, HCV RX PCR #### [facility] , Comprehensive Metabolic Pane mayur 09-12-2023 Albumin [Mass/Vol] 4.2 g/dL Normal 3.5-5.7 [facility] Comment on above: Performed By: #### C MP, ESR, PTH, CBC, CRP #### [address] #### HBCAB, HBSAB, HBSAG, HCV RX PCR #### [facility] , Albumin/Globulin [Mass ratio] 1.4 {ratio} Normal [facility] Comment on above: Performed By: #### C MP, ESR, PTH, CBC, CRP #### [address] #### HBCAB, HBSAB, HBSAG, HCV RX PCR #### [facility] , ALP [Catalytic activity/Vol] 82 U/L Normal 34-104 [facility] Comment on above: Performed By: #### C MP, ESR, PTH, CBC, CRP #### [address] #### HBCAB, HBSAB, HBSAG, HCV RX PCR #### [facility] , ALT [Catalytic activity/Vol] 18 U/L Normal 7-52 [facility] Comment on above: Performed By: #### C MP, ESR, PTH, CBC, CRP #### [address] #### HBCAB, HBSAB, HBSAG, HCV RX PCR #### [facility] , Anion gap [Moles/Vol] 9.7 mmol/L Normal 6.0-15.0 [facility] Comment on above: Performed By: #### C MP, ESR, PTH, CBC, CRP #### [address] #### HBCAB, HBSAB, HBSAG, HCV RX PCR #### [facility] , AST [Catalytic activity/Vol] 16 U/L Normal 13-39 [facility] Comment on above: Performed By: #### C MP, ESR, PTH, CBC, CRP #### [address] #### HBCAB, HBSAB, HBSAG, HCV RX PCR #### [facility] , Bilirubin [Mass/Vol] 0.5 mg/dL Normal 0.3-1.0 [facility] Comment on above: Performed By: #### C MP, ESR, PTH, CBC, CRP #### [address] #### HBCAB, HBSAB, HBSAG, HCV RX PCR #### [facility] , Calcium [Mass/Vol] 9.9 mg/dL Normal 8.6-10.3 [facility] Comment on above: Performed By: #### C MP, ESR, PTH, CBC, CRP #### [address] #### HBCAB, HBSAB, HBSAG, HCV RX PCR #### [facility] , Chloride [Moles/Vol] 105 mmol/L Normal 98-107 [facility] Comment on above: Performed By: #### C MP, ESR, PTH, CBC, CRP #### [address] #### HBCAB, HBSAB, HBSAG, HCV RX PCR #### [facility] , CO2 [Moles/Vol] 31.5 mmol/L High 21.0-31.0 [facility] Comment on above: Performed By: #### C MP, ESR, PTH, CBC, CRP #### [place] [address] [place] #### HBCAB, HBSAB, HBSAG, HCV RX PCR #### [facility] , Creatinine [Mass/Vol] 0.74 mg/dL Normal 0.60-1.20 [facility] Comment on above: Performed By: #### C MP, ESR, PTH, CBC, CRP #### [address] #### HBCAB, HBSAB, HBSAG, HCV RX PCR #### [facility] , GFR/1.73 sq M.predicted MDRD (S/P/Bld) [Vol rate/Area] mL/min/{1.73_m2} Normal [facility] Comment on above: Performed By: #### C MP, ESR, PTH, CBC, CRP #### [address] #### HBCAB, HBSAB, HBSAG, HCV RX PCR #### [facility] , Globulin (S) [Mass/Vol] 2.9 g/dL Normal [facility] Comment on above: Performed By: #### C MP, ESR, PTH, CBC, CRP #### [address] #### HBCAB, HBSAB, HBSAG, HCV RX PCR #### [facility] , Glucose [Mass/Vol] 99 mg/dL Normal 70-100 [facility] Comment on above: Result Comment: [facility] Glucose Reference Range is dependent on time and content of last meal. Glucose of more than 200 mg/dL in a nonstressed, ambulatory subject supports the diagnosis of Diabetes Mellitus. ADA recommended reference range Performed By: #### C MP, ESR, PTH, CBC, CRP #### [place] [address] [place] #### HBCAB, HBSAB, HBSAG, HCV RX PCR #### [facility] , Potassium [Moles/Vol] 4.2 mmol/L Normal 3.5-5.1 [facility] Comment on above: Performed By: #### C MP, ESR, PTH, CBC, CRP #### [place] [address] [place] #### HBCAB, HBSAB, HBSAG, HCV RX PCR #### [facility] , Protein [Mass/Vol] 7.1 g/dL Normal 6.4-8.9 [facility] Comment on above: Performed By: #### C MP, ESR, PTH, CBC, CRP #### [facility] [address] [place] [address] [place] #### HBCAB, HBSAB, HBSAG, HCV RX PCR #### [facility] , Sodium [Moles/Vol] 142 mmol/L Normal 136-145 [facility] Comment on above: Performed By: #### C MP, ESR, PTH, CBC, CRP #### [place] [address] [place] #### HBCAB, HBSAB, HBSAG, HCV RX PCR #### [facility] , Urea nitrogen [Mass/Vol] 28 mg/dL High 7-25 [facility] Comment on above: Performed By: #### C MP, ESR, PTH, CBC, CRP #### [facility] [address] [place] [address] [place] #### HBCAB, HBSAB, HBSAG, HCV RX PCR #### [facility] , Creatinine [Mass/volume] in Serum or PlasmaOrdered By: Tano Tsai on 09-12-2023 Creatinine [Mass/Vol] 0.74 mg/dL 0.60-1.20 [facility] Eosinophils Auto (Bld) [#/Vo l]Ordered By: Tano Tsai on 09-12-2023 Eosinophils (Bld) [#/Vol] 0.3 10*3/uL 0.0-0.45 [facility] Eosinophils/100 WBC Auto (Bl d)Ordered By: Tano Tsai on 09-12-2023 Eosinophils/100 WBC (Bld) 3.3 % . [facility] Erythrocyte Sedimentation Ra lilo 09-12-2023 ESR (Bld) [Velocity] 26 mm/h Normal 0-29 [facility] Comment on above: Result Comment: PERF ORMED BY: [facility] [address] [place] [address] PATHOLOGIST GRID CASTER VICENTE MONTEZ M.D. Performed By: #### C MP, ESR, PTH, CBC, CRP #### [facility] [address] [place] [address] [place] #### HBCAB, HBSAB, HBSAG, HCV RX PCR #### [facility] , Erythrocyte distribution wid th Auto (RBC) [Ratio]Ordered By: Tano Tsai on 09-12-2023 Erythrocyte distribution width (RBC) [Ratio] 14.8 % 11.9-15.3 [facility] Erythrocyte sedimentation ra te by Photometric methodOrdered By: Tano Tsai on 09-12-2023 ESR Photometric method (Bld) [Velocity] 26 mm/hr 0-29 [facility] Globulin Calc (S) [Mass/Vol] Ordered By: Tano Tsai on 09-12-2023 Globulin (S) [Mass/Vol] 2.9 g/dL [facility] Glucose [Mass/volume] in Ser um or PlasmaOrdered By: Tano Tsai on 09-12-2023 Glucose [Mass/Vol] 99 mg/dL 70-100 [facility] Comment on above: ADA recommended refe rence rangeRandom Glucose Reference Range is dependent on time and content of last meal. Glucose of more than 200 mg/dL in a nonstressed, ambulatory subject supports the diagnosis of Diabetes Mellitus. Hematocrit Auto (Bld) [Volum e fraction]Ordered By: Tano Tsai on 09-12-2023 Hematocrit (Bld) [Volume fraction] 40.9 % 34.0-46.4 [facility] Hemoglobin [Mass/volume] in BloodOrdered By: Tano Tsai on 09-12-2023 Hemoglobin (Bld) [Mass/Vol] 13.2 g/dL 11.8-15.4 [facility] Hep C Ab wRfx to Qnt PCRon 0 09-12-2023 Hepatitis C Virus Antibody Non-Reactive Normal Non Reactive [facility] Comment on above: Performed By: #### C MP, ESR, PTH, CBC, CRP #### [facility] [address] #### HBCAB, HBSAB, HBSAG, HCV RX PCR #### [facility] , Interpretation Hepatitis C Normal . [facility] Comment on above: Result Comment: Not infected with HCV unless early or acute infection is suspected (which may be delayed in an immunocompromised individual), or other evidence exists to indicate HCV infection. Performed By: #### C MP, ESR, PTH, CBC, CRP #### [address] #### HBCAB, HBSAB, HBSAG, HCV RX PCR #### [facility] , Hepatitis B Core Antibodyon 09-12-2023 Hepatitis B Core Antibody Negative Normal Negative [facility] Comment on above: Result Comment: Perf ormed at: - [facility] [place] [id number] Golf Course Manager: Natanael Banegas PhD, Phone: [phone] Performed By: #### C MP, ESR, PTH, CBC, CRP ####[address]#### HBCAB, HBSAB, HBSAG, HCV RX PCR ####[facility] , Hepatitis B Surface Antibody on 09-12-2023 Hepatitis B Surface Antibody Non-Reactive Normal . [facility] Comment on above: Result Comment: Non Reactive: Inconsistent with immunity, less than 10 mIU/mL Reactive: Consistent with immunity, greater than 9.9 mIU/mL Performed By: #### C MP, ESR, PTH, CBC, CRP #### [place] [address] [place] #### HBCAB, HBSAB, HBSAG, HCV RX PCR #### [facility] , Hepatitis B Surface Antigeno n 09-12-2023 HBsAg Screen Negative Normal Negative [facility] Comment on above: Result Comment: PERF ORMED BY: [facility] [address] [place] [id number] PATHOLOGIST GRID CASTER VICENTE MONTEZ M.D. Performed By: #### C MP, ESR, PTH, CBC, CRP ####[facility] [address]#### HBCAB, HBSAB, HBSAG, HCV RX PCR ####[facility] , Hepatitis B virus surface Ab [Presence] in SerumOrdered By: Tano Tsai on 09-12-2023 HBV surface Ab Ql (S) Non-Reactive . [facility] Comment on above: Non Reactive: Incons istent with immunity, less than 10 mIU/mL Reactive: Consistent with immunity, greater than 9.9 mIU/mL Hepatitis B virus surface Ag [Presence] in Serum or Plasma by ImmunoassayOrdered By: Tano Tsai on 09-12-2023 HBV surface Ag IA Ql Negative Negative [facility] Hepatitis C virus IgG Ab [Pr esence] in Serum or Plasma by ImmunoassayOrdered By: Tano Tsai on 09-12-2023 HCV IgG IA Ql Non-Reactive Non Reactive [facility] Leukocytes [#/volume] correc loan for nucleated erythrocytes in Blood by Automated counOrdered By: Tano Tsai on 09-12-2023 WBC corrected for nucl RBC Auto (Bld) [#/Vol] 9.2 10*3/uL 3.8-11.6 [facility] Lymphocytes Auto (Bld) [#/Vo l]Ordered By: Tano Tsai on 09-12-2023 Lymphocytes (Bld) [#/Vol] 1.9 10*3/uL 1.00-4.8 [facility] Lymphocytes/100 WBC Auto (Bl d)Ordered By: Tano Tsai on 09-12-2023 Lymphocytes/100 WBC (Bld) 21.1 % . [facility] MCH Auto (RBC) [Entitic mass ]Ordered By: Tano Tsai on 09-12-2023 MCH (RBC) [Entitic mass] 27.6 pg 24.7-34.3 [facility] MCHC Auto (RBC) [Mass/Vol]Or dered By: Tano Tsai on 09-12-2023 MCHC (RBC) [Mass/Vol] 32.4 g/dL 32.0-35.0 [facility] MCV Auto (RBC) [Entitic vol] Ordered By: Tano Tsai on 09-12-2023 MCV (RBC) [Entitic vol] 85.2 fL 80-100 [facility] Monocytes Auto (Bld) [#/Vol] Ordered By: Tano Tsai on 09-12-2023 Monocytes (Bld) [#/Vol] 1.0 10*3/uL 0.0-0.8 [facility] Monocytes/100 WBC Auto (Bld) Ordered By: Tano Tsai on 09-12-2023 Monocytes/100 WBC (Bld) 10.5 % . [facility] Neutrophils Auto (Bld) [#/Vo l]Ordered By: Tano Tsai on 09-12-2023 Neutrophils (Bld) [#/Vol] 5.9 10*3/uL 1.8-7.7 [facility] Neutrophils/100 WBC Auto (Bl d)Ordered By: Tano Tsai on 09-12-2023 Neutrophils/100 WBC (Bld) 64.4 % . [facility] No Panel InformationOrdered By: Tano Tsai on 09-12-2023 Estimated GFR (CKD-EPI) > 60.0 mL/Min [facility] Hepatitis B Core Total Antibody Negative Negative [facility] Comment on above: Performed at: - [address] [id number] Director: Natanael Banegas PhD, Phone: [phone] Hepatitis C Interpretation See comment . [facility] Comment on above: Not infected with HC V unless early or acute infection issuspected (which may be delayed in an immunocompromisedindividual), or other evidence exists to indicate HCVinfection. Pharmacy Creatinine Clearance (Chem N/A [facility] Nucleated erythrocytes [Pres ence] in Blood by Automated countOrdered By: Tano Tsai on 09-12-2023 Nucleated RBC Auto Ql (Bld) 0.2 /100{WBC} 0-0.5 [facility] Parathyrin.intact [Mass/volu me] in Serum or PlasmaOrdered By: Tano Tsai on 09-12-2023 Parathyrin.intact [Mass/Vol] 34.2 pg/mL [facility] Parathyroid Hormone Intacton 09-12-2023 Parathyroid Hormone Intact 34.2 pg/mL Normal [facility] Comment on above: Result Comment: PERF ORMED BY: [place] [address] PATHOLOGIST GRID CASTER VICENTE MONTEZ M.D. Performed By: #### C MP, ESR, PTH, CBC, CRP #### [place] [address] [place] #### HBCAB, HBSAB, HBSAG, HCV RX PCR #### [facility] , Platelet mean volume Auto (B ld) [Entitic vol]Ordered By: Tano Tsai on 09-12-2023 Platelet mean volume (Bld) [Entitic vol] 10.3 fL 6.3-10.7 [facility] Platelets Auto (Bld) [#/Vol] Ordered By: Tano Tsai on 09-12-2023 Platelets (Bld) [#/Vol] 253 10*3/uL 150-450 [facility] Potassium [Moles/volume] in Serum or PlasmaOrdered By: Tano Tsai on 09-12-2023 Potassium [Moles/Vol] 4.2 mmol/L 3.5-5.1 [facility] Protein [Mass/volume] in Ser um or PlasmaOrdered By: Tano Tsai on 09-12-2023 Protein [Mass/Vol] 7.1 g/dL 6.4-8.9 [facility] RBC Auto (Bld) [#/Vol]Ordere d By: Tano Tsai on 09-12-2023 RBC (Bld) [#/Vol] 4.80 10*6/uL 3.60-5.00 [facility] Serum or plasma albumin/glob ulin mass ratioOrdered By: Tano Tsai on 09-12-2023 Albumin/Globulin [Mass ratio] 1.4 {ratio} [facility] Serum or plasma anion gap de terminationOrdered By: Tano Tsai on 09-12-2023 Anion gap [Moles/Vol] 9.7 mmol/L 6.0-15.0 [facility] Sodium [Moles/volume] in Ser um or PlasmaOrdered By: Tano Tsai on 09-12-2023 Sodium [Moles/Vol] 142 mmol/L 136-145 [facility] Urea nitrogen [Mass/volume] in Serum or PlasmaOrdered By: Tano Tsai on 09-12-2023 Urea nitrogen [Mass/Vol] 28 mg/dL 7-25 [facility] WBC Auto (Bld) [#/Vol]Ordere d By: Tano Tsai on 09-12-2023 WBC (Bld) [#/Vol] 9.2 10*3/uL 3.8-11.6 [facility] Basophils Auto (Bld) [#/Vol] on 08-03-2023 Basophils (Bld) [#/Vol] 0.1 10 3/uL 0.0-0.1 [facility] Basophils/100 WBC Auto (Bld) on 08-03-2023 Basophils/100 WBC (Bld) 0.6 % 0.2-2.0 [facility] Eosinophils/100 WBC Auto (Bl d)on 08-03-2023 Eosinophils/100 WBC (Bld) 3.2 % 0.9-7.0 [facility] Erythrocyte distribution wid th Auto (RBC) [Ratio]on 08-03-2023 Erythrocyte distribution width (RBC) [Ratio] 13.7 % 11.0-15.0 [facility] Estimated glomerular filtrat ion rate (GFR) non- Americanon 08-03-2023 GFR/1.73 sq M.predicted among non-blacks MDRD (S/P/Bld) [Vol rate/Area] mL/min/{1.73_m2} >=60 [facility] Globulin Calc (S) [Mass/Vol] on 08-03-2023 Globulin (S) [Mass/Vol] 3.8 g/dL [facility] Hematocrit Auto (Bld) [Volum e fraction]on 08-03-2023 Hematocrit (Bld) [Volume fraction] 38.0 % 36.0-48.0 [facility] Hemoglobin [Mass/volume] in Bloodon 08-03-2023 Hemoglobin (Bld) [Mass/Vol] 11.9 g/dL 12.0-16.0 [facility] - Chemistry and C hemistry - challengeon 08-03-2023 Albumin [Mass/Vol] 3.4 g/dL 3.4-5.0 [facility] ALP [Catalytic activity/Vol] 110 U/L 46-116 [facility] ALT [Catalytic activity/Vol] 21 U/L 14-59 [facility] AST [Catalytic activity/Vol] 18 U/L 15-37 [facility] Bilirubin [Mass/Vol] 0.3 mg/dL 0.2-1.0 [facility] Calcium [Mass/Vol] 8.8 mg/dL 8.5-10.1 [facility] Chloride [Moles/Vol] 103 mmol/L 98-107 [facility] CO2 [Moles/Vol] 32.4 mmol/L 21.0-32.0 [facility] Cobalamin (Vitamin B12) [Mass/Vol] 803.0 pg/mL 193.0-986.0 [facility] Creatinine [Mass/Vol] 0.88 mg/dL 0.55-1.02 [facility] GFR/1.73 sq M.predicted MDRD (S/P/Bld) [Vol rate/Area] mL/min/{1.73_m2} >=60 [facility] Glucose [Mass/Vol] 150 mg/dL 74-106 [facility] Potassium [Moles/Vol] 3.6 mmol/L 3.5-5.1 [facility] Protein [Mass/Vol] 7.2 g/dL 6.4-8.2 [facility] Sodium [Moles/Vol] 143 mmol/L 136-145 [facility] TSH Qn 1.282 m[IU]/L 0.358-3.740 [facility] Urea nitrogen [Mass/Vol] 26.0 mg/dL 7.0-18.0 [facility] Urea nitrogen/Creatinine [Mass ratio] 29.5 mg/mg [facility] - Hematology and Cell countson 08-03-2023 Immature granulocytes/100 WBC (Bld) 0.3 % 0.0-0.5 [facility] Leukocytes [#/volume] correc loan for nucleated erythrocytes in Blood by Automated counon 08-03-2023 WBC corrected for nucl RBC Auto (Bld) [#/Vol] 8.8 10 3/uL 4.0-11.0 [facility] Lymphocytes Auto (Bld) [#/Vo l]on 08-03-2023 Lymphocytes (Bld) [#/Vol] 2.0 10 3/uL 1.2-3.8 [facility] Lymphocytes/100 WBC Auto (Bl d)on 08-03-2023 Lymphocytes/100 WBC (Bld) 22.7 % 20.5-60.0 [facility] MCH Auto (RBC) [Entitic mass ]on 08-03-2023 MCH (RBC) [Entitic mass] 27.5 pg 26.7-34.0 [facility] MCHC Auto (RBC) [Mass/Vol]on 08-03-2023 MCHC (RBC) [Mass/Vol] 31.3 g/dL 29.9-35.2 [facility] MCV Auto (RBC) [Entitic vol] on 08-03-2023 MCV (RBC) [Entitic vol] 87.8 fL 81.0-99.0 [facility] Monocytes Auto (Bld) [#/Vol] on 08-03-2023 Monocytes (Bld) [#/Vol] 0.9 10 3/uL 0.3-0.8 [facility] Monocytes/100 WBC Auto (Bld) on 08-03-2023 Monocytes/100 WBC (Bld) 9.9 % 1.7-12.0 [facility] Neutrophils Auto (Bld) [#/Vo l]on 08-03-2023 Neutrophils (Bld) [#/Vol] 5.6 10 3/uL 1.4-6.5 [facility] Neutrophils/100 WBC Auto (Bl d)on 08-03-2023 Neutrophils/100 WBC (Bld) 63.3 % 43.0-75.0 [facility] No Panel Informationon 08-02 C-Reactive Protein, Quantitative 1.82 mg/dL <=0.50 [facility] Eosinophils # (Auto) 0.3 10 3/uL 0.0-0.7 [facility] Immature Granulocyte # (Auto) 0.03 10 3/uL 0.00-0.03 [facility] Platelet mean volume Auto (B ld) [Entitic vol]on 08-03-2023 Platelet mean volume (Bld) [Entitic vol] 11.6 fL 9.5-13.5 [facility] Platelets Auto (Bld) [#/Vol] on 08-03-2023 Platelets (Bld) [#/Vol] 279 10 3/uL 150-450 [facility] RBC Auto (Bld) [#/Vol]on RBC (Bld) [#/Vol] 4.33 10 6/uL 4.20-5.40 [facility] Serum nuclear antibody titer on 08-03-2023 Nuclear Ab (S) [Titer] Negative . [facility] Comment on above: Negative <1:80 Borde rline 1:80 Positive >1:80ICAP nomenclature: AC-0For more information about Hep-2 cell patterns useANApatterns.org, the official website for theInternational Consensus on Antinuclear Antibody (ALFONZO)Patterns (ICAP).Performed at: - [facility] [id number] Director: Natanael Banegas PhD, Phone: [phone] Serum or plasma albumin/glob ulin mass ratioon 08-03-2023 Albumin/Globulin [Mass ratio] 0.9 {ratio} [facility] Serum or plasma anion gap de terminationon 08-03-2023 Anion gap [Moles/Vol] 11.2 mmol/L [facility] Serum or plasma cyclic adeno sine monophosphate measurement (moles/volume)on 08-03-2023 Adenosine monophosphate.cyclic [Moles/Vol] 3 units 0-19 [facility] Comment on above: Negative <20 Weak po sitive 20 - 39 Moderate positive 40 - 59 Strong positive >59Performed at: CB - [facility] [address] [place], [place] [id number] Director: Natanael Banegas PhD, Phone: [phone] MR LUMBAR SPINE W AND WO CON [...] examined. Electronically Signed Out By ANNY CHU MD/[facility] By the signature on this report, the individual or group listed as making the Final Interpretation/Diagnos is certifies that they have reviewed this case. Diagnostic interpretation performed at [place] [address] Clinical History: Physician Contact Number: [phone] Ischemic Time (A): 09:35 Fixative (A): Formalin [...] toto in one cassette. 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 Refer to note in patient chart for documentation of history and physical. Providers: Gustavo Li MD (Doctor), Sara Castillo RN (Nurse), Maciel Ferrer, Bicycle I Assembler Referring: Gustavo Li MD Medicines: See the [...] biopsy result. 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 All rights reserved. The codes documented in this report are preliminary and upon hollow handle knife assembler review may be revised to meet current compliance requirements. Attending Participation: I personally performed the entire procedure. MD Gustavo Enamorado MD 12/12/2022 9:49:01 AM This report has been signed electronically. Number of Addenda: 0 Note Initiated On: 12/12/2022 9:15 AM Total Procedure Duration Time 0 hours 21 minutes 39 seconds [facility] Work Phone: Radiology Study observation (narrative) [facility] Work Phone: Endoscopic Ultrasound (Upper )Ordered By: Gustavo Li on 12-12-2022 [facility] Work Phone: No Panel Informationon 12-12 [employer] DO Work Phone: [email or web address]} Message Bus [employer] DO Work Phone: [employer] DO Work Phone: Order Reconciliationon 12-12 Order [...] Metamucil [facility] orally once a day [facility] 12-Dec-2022 07:55 Metamucil [employer] orally once a day [facility] 12-Dec-2022 07:55 Metamucil [employer] [facility] is [...] [facility] 12-12-2022 [facility] Surgical Pathology Department Name LIZZY WELSH Pathologist: ANNY CHU MD Date of Procedure: 12/12/2022 Date Received: 12/12/2022 Date Reported 12/20/2022 Submitting Physician: GUSTAVO LI MD Location: [facility] Other External # FINAL DIAGNOSIS A. DUODENAL POLYP, BIOPSY: -- SMALL INTESTINAL MUCOSA DEMONSTRATING DILATED LYMPHATIC VESSELS, NO DYSPLASIA IDENTIFIED. Note: Multiple deeper levels were examined. Electronically Signed Out By ANNY CHU MD/[facility] By the signature on this report, the individual or group listed as making the Final Interpretation/Diagnos is certifies that they have reviewed this case. Diagnostic interpretation performed at [place] [address] Clinical History: Physician Contact Number: [phone] Ischemic Time (A): 09:35 Fixative (A): Formalin [...] toto in one cassette. mrs/12/13/2022 [facility] Department of Pathology [address] [place] [address] Normal [facility] Comment on above: Performed By: #### [facility] #### [facility] Surgical Pathology Department [address] [place] [address] Upper EUSon 12-12-2022 Upper EUS PATIENTNAME Patient Name: Lizzy Welsh EXAMDATE Procedure Date: 12/12/2022 9:15 AM PATIENTID PATIENTACCOUNTNUM PATIENTDOB Date of : 1950 ADMITTYPE Admit Type: Outpatient PATIENTROOM Site: [facility] ETHNICITY Ethnicity: Not or RACE Race: White PROVDR Attending MD: Gustavo Li MD, [id number] ENDOPROCEDURENAME Procedure: Upper EUS INDICATION Indications: Duodenal mucosal mass/polyp found on endoscopy, 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 Refer to note in patient chart for documentation of history and physical. PRIMARYPROVIDER Providers: Gustavo Li MD (Doctor), Sara Castillo RN (Nurse), Maciel Ferrer, Bicycle I Assembler EDREFPROVIDER Referring: Gustavo Li MD CURRENT_MEDS Medicines: [...] result. 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 All rights reserved. The codes documented in this report are preliminary and upon hollow handle knife assembler review may be revised to meet current compliance requirements. ATTDRPART Attending Participation: I personally performed the entire procedure. SIGNATURENAME MD Gustavo Enamorado MD SIGNATUREDATE 12/12/2022 9:49:01 AM SIGNATUREONFILEIND This report has been signed electronically. NUMADDENDA Number of Addenda: 0 INITIATEDON Note Initiated On: 12/12/2022 9:15 AM TOTPROCTIME Total Procedure Duration Time 0 hours 21 minutes 39 seconds Normal [facility] Mayur 09-28-2022 L -- ---- Specimen: [id number] Received: 09/28/22 Status: SALVADOR Enrique Num: [id number] Spec Type: Surgical Subm Dr: Niurka Oliveira MD Tissues: A Duodenum - Biopsy (DUODENUM BX) B Esophagus Biopsy (ESOPHABEAL BX) Procedures: HE/4, Gross/Micro L4/2 ---- Age/ Patient Sex Location Account Attending Physician ---- Lizzy Welsh 72/F [id number] Niurka Oliveira MD ---- SPEC NUM: [id number] RECD: 09/28/22 STATUS: SALVADOR PRACHIBrandon NUM: [id number] ELVA: 09/28/22- SUBM DR: Niurka Oliveira MD ENTERED: 09/28/22 [facility] DR: SPEC TYPE: Surgical DEPT: S ORDERED: [...] one cassette labeled C1. ---- ---- Specimen: [id number] Received: 09/28/22 Status: SALVADOR Enrique Num: [id number] Spec Type: Surgical Subm Dr: Niurka Oliveira MD Tissues: A Duodenum - Biopsy (DUODENUM BX) B Esophagus Biopsy (ESOPHABEAL BX) Procedures: HE/4, Gross/Micro L4/2 ---- Patient: Lizzy Welsh [id number] (Continued) ---- Signed (signature on file) Baylee Newton MD 09/29/22 1009 Normal [facility] ZAK - TSHon 07-19-2022 TSH 1.271 uIU/mL Normal 0.358-3.740 [facility] Comment on above: Performed By: #### D ATTSH #### [facility] [address] [place] [address] Dr. Gertrudis Peres TSH RANGE SEE BELOW Normal [facility] Comment on above: Result Comment: <0.3 4 UIU/ml HYPERTHYROID 0.34-5.60 UIU/ml EUTHYROID >5.60 UIU/ml HYPOTHYROID Performed By: #### D ATTSH #### [facility] [address] [place] [address] Dr. Gertrudis Peres ZAK - VITAMIN Don 07-19-2022 VIT D 25-OH 26.5 ng/mL Normal [facility] Comment on above: Performed By: #### D ATVITD #### [facility] [address] [place] [address] Dr. Gertrudis Peres VIT D RANGES SEE BELOW Normal [facility] Comment on above: Result Comment: <20 ng/mL Vit D deficient 20 - <30 ng/mL Vit D insufficient 30 - 100 ng/mL Vit D sufficient >100 ng/mL Potential Toxicity Performed By: #### D ATVITD #### [facility] [address] [place] [address] Dr. Gertrudis Peres MG MAMM SCREEN 3D MANDY CADon 06-13-2022 MG MAMM SCREEN 3D MANDY CAD Patient: LIZZY WELSH Exam Date: 06/13/2022 : 1950 Gender:F Ordering : DR MCKINLEY ALFARO D.O. Admission #: [id number] Family : Order #: [id number] CLICK HERE TO VIEW EXAM RADIOLOGY REPORT [...] No Treatments None Family Cancers None LOCATION: [facility] BREAST COMPOSITION: Scattered areas fibroglandular density. [...] PALPABLE LUMP SHOULD BE BIOPSIED. Dictated by: Tiffnay Rose M.D. on 06/14/2022 at 11:16 Approved by: Tiffany Rose M.D. on 06/14/2022 at 11:22 Normal [facility] XR DEXA BONE DENSITYon 06-13 XR DEXA [...] by: TIFFANY VOJESICADEREK Date: 2022-06-13 14:55 Normal [facility] PAP ACOG PANEL 2: 30 to 65on 06-10-2022 . . Normal [facility] Comment on above: Performed By: #### 4 [id number] #### [facility] [address] [place] [address] Dr. Gertrudis Peres Age Gdln ACOG Testing Comment Normal [facility] Comment on above: Result Comment: <21 or >65 or no age provided Performed By: #### 4 [id number] #### [facility] [address] [place] [address] Dr. Gertrudis Peres DIAGNOSIS: Comment [facility] Comment on above: Result Comment: NEGA TIVE FOR INTRAEPITHELIAL LESION OR MALIGNANCY. Performed By: #### 4 [id number] #### [facility] [address] [place] [address] Dr. Gertrudis Peres Methodology: Comment [facility] Comment on above: Result Comment: This liquid based ThinPrep(R) pap test was screened with the use of an image guided system. Performed By: #### 4 [id number] #### [facility] [address] [place] [address] Dr. Gertrudis Peres Note: Comment [facility] Comment on above: Result Comment: The Pap smear is a screening test designed to aid in the detection of premalignant and malignant conditions of the uterine cervix. It is not a diagnostic procedure and should not be used as the sole means of detecting cervical cancer. Both false-positive and false-negative reports do occur. . Performed By: #### 4 [id number] #### [facility] [address] [place] [address] Dr. Gertrudis Peres Performed by: Comment Normal [facility] Comment on above: Result Comment: Yamilex Shipman Calculation Clerk (ASCP) Performed By: #### 4 [id number] #### [facility] [address] [place] [address] Dr. Gertrudis Peres Specimen adequacy: Comment Normal [facility] Comment on above: Result Comment: Sati sfactory for evaluation. Endocervical and/or squamous metaplastic cells (endocervical component) are present. Performed By: #### 4 [id number] #### [facility] [address] [address] [address] Gertrudis Peres XR HIPS MANDY 5V [...] by: NICANOR NAQVI Date: 2022-05-03 16:34 Normal [facility] CBC AUTO DIFFon 03-31-2022 BASO # 0.0 103/ul Normal 0.0-0.1 [facility] Comment on above: Performed By: #### C BC #### [facility] [address] [address] [address] Gertrudis Peres Basophils/100 WBC (Bld) 0.5 % Normal 0.2-2.0 [facility] Comment on above: Performed By: #### C BC #### [facility] [address] [address] [address] Gertrudis Peres EO # 0.3 103/ul Normal 0.0-0.7 [facility] Comment on above: Performed By: #### C BC #### [facility] [address] [place] [address] Dr. Gertrudis Peres Eosinophils/100 WBC (Bld) 4.3 % Normal 0.9-7.0 [facility] Comment on above: Performed By: #### C BC #### [facility] [address] [place] [address] Dr. Gertrudis Peres Erythrocyte distribution width (RBC) [Ratio] 13.2 % Normal 11.0-15.0 [facility] Comment on above: Performed By: #### C BC #### [facility] [address] [place] [address] Dr. Gertrudis Peres Hematocrit (Bld) [Volume fraction] 37.9 % Normal 36.0-48.0 [facility] Comment on above: Performed By: #### C BC #### [facility] [address] [place] [address] Dr. Gertrudis Peres Hemoglobin (Bld) [Mass/Vol] 12.7 g/dL Normal 12.0-16.0 [facility] Comment on above: Performed By: #### C BC #### [facility] [address] [place] [address] Dr. Gertrudis Peres IG # 0.02 10e3/ul Normal 0.00-0.03 [facility] Comment on above: Performed By: #### C BC #### [facility] [address] [place] [address] Dr. Gertrudis Peres IG % 0.3 % Normal 0.0-0.5 [facility] Comment on above: Performed By: #### C BC #### [facility] [address] [place] [address] Dr. Gertrudis Peres LYMPH # 1.7 103/ul Normal 1.2-3.8 [facility] Comment on above: Performed By: #### C BC #### [facility] [address] [place] [address] Dr. Gertrudis Peres Lymphocytes/100 WBC (Bld) 26.4 % Normal 20.5-60.0 [facility] Comment on above: Performed By: #### C BC #### [facility] [address] [place] [address] Dr. Gertrudis Peres MANUAL DIFF REQ NO Normal [facility] Comment on above: Performed By: #### C BC #### [facility] [address] [place] [address] Dr. Gertrudis Peres MCH (RBC) [Entitic mass] 28.6 pg Normal 26.7-34.0 [facility] Comment on above: Performed By: #### C BC #### [facility] [address] [place] [address] Dr. Gertrudis Peres MCHC (RBC) [Mass/Vol] 33.5 g/dL Normal 29.9-35.2 [facility] Comment on above: Performed By: #### C BC #### [facility] [address] [place] [address] Dr. Gertrudis Peres MCV (RBC) [Entitic vol] 85.4 fL Normal 81.0-99.0 [facility] Comment on above: Performed By: #### C BC #### [facility] [address] [place] [address] Dr. Gertrudis Peres MONO # 0.5 103/ul Normal 0.3-0.8 [facility] Comment on above: Performed By: #### C BC #### [facility] [address] [place] [address] Dr. Gertrudis Peres Monocytes/100 WBC (Bld) 8.1 % Normal 1.7-12.0 [facility] Comment on above: Performed By: #### C BC #### [facility] [address] [place] [address] Dr. Gertrudis Peres NEUT # 3.9 103/ul Normal 1.4-6.5 [facility] Comment on above: Performed By: #### C BC #### [facility] [address] [place] [address] Dr. Gertrudis Peres Neutrophils/100 WBC (Bld) 60.4 % Normal 43.0-75.0 [facility] Comment on above: Performed By: #### C BC #### [facility] [address] [place] [address] Dr. Gertrudis Peres Platelet mean volume (Bld) [Entitic vol] 11.3 fL Normal 9.5-13.5 [facility] Comment on above: Performed By: #### C BC #### [facility] [address] [place] [address] Dr. Gertrudis Peres PLT 215 103/ul Normal 150-450 [facility] Comment on above: Performed By: #### C BC #### [facility] [address] [place] [address] Dr. Gertrudis Peres RBC 4.44 106/ul Normal 4.20-5.40 [facility] Comment on above: Performed By: #### C BC #### [facility] [address] [place] [address] Dr. Gertrudis Peres WBC 6.5 103/ul Normal 4.0-11.0 [facility] Comment on above: Performed By: #### C BC #### [facility] [address] [place] [address] Dr. Gertrudis Peres PROF 14(COMP METB)on 022 Albumin [Mass/Vol] 3.7 g/dL Normal 3.4-5.0 [facility] Comment on above: Performed By: #### C MP #### [facility] [address] [place] [address] Dr. Gertrudis Peres Albumin/Globulin [Mass ratio] 1.1 {ratio} Normal [facility] Comment on above: Performed By: #### C MP #### [facility] [address] [place] [address] Dr. Gertrudis Peres ALP [Catalytic activity/Vol] 112 U/L Normal 46-116 [facility] Comment on above: Performed By: #### C MP #### [facility] [address] [place] [address] Dr. Gertrudis Peres ALT [Catalytic activity/Vol] 23 U/L Normal 14-59 [facility] Comment on above: Performed By: #### C MP #### [facility] [address] [address] [address] Gertrudis Peres Anion gap [Moles/Vol] 7.1 mmol/L Normal [facility] Comment on above: Performed By: #### C MP #### [facility] [address] [address] [address] Gertrudis Peres AST [Catalytic activity/Vol] 18 U/L Normal 15-37 [facility] Comment on above: Performed By: #### C MP #### [facility] [address] [address] [address] Gertrudis Peres Bilirubin [Mass/Vol] 0.4 mg/dL Normal 0.2-1.0 [facility] Comment on above: Performed By: #### C MP #### [facility] [address] [place] [address] Dr. Gertrudis Peres Calcium [Mass/Vol] 8.6 mg/dL Normal 8.5-10.1 [facility] Comment on above: Performed By: #### C MP #### [facility] [address] [place] [address] Dr. Gertrudis Peres Chloride [Moles/Vol] 105 mmol/L Normal 98-107 [facility] Comment on above: Performed By: #### C MP #### [facility] [address] [address] [address] Gertrudis Peres CO2 [Moles/Vol] 34.0 mmol/L Critically high 21.0-32.0 [facility] Comment on above: Performed By: #### C MP #### [facility] [address] [address] [address] Gertrudis Peres Creatinine [Mass/Vol] 0.80 mg/dL Normal 0.55-1.02 [facility] Comment on above: Performed By: #### C MP #### [facility] [address] [place] [address] Dr. Gertrudis Peres EGFR-AF CZECH >60 Normal >=[address] [facility] Comment on above: Performed By: #### C MP #### [facility] [address] [address] [address] Gertrudis Peres EGFR-NON AF CZECH >60 Normal >=60 [facility] Comment on above: Performed By: #### C MP #### [facility] [address] [address] [address] Gertrudis Peres Globulin (S) [Mass/Vol] 3.5 g/dL Normal [facility] Comment on above: Performed By: #### C MP #### [facility] [address] [address] [address] Gertrudis Peres Glucose [Mass/Vol] 119 mg/dL Critically high 74-106 [facility] Comment on above: Performed By: #### C MP #### [facility] [address] [address] [address] Gertrudis Peres Potassium [Moles/Vol] 3.1 mmol/L Critically low 3.5-5.1 [facility] Comment on above: Performed By: #### C MP #### [facility] [address] [address] [address] Gertrudis Peres Protein [Mass/Vol] 7.2 g/dL Normal 6.4-8.2 [facility] Comment on above: Performed By: #### C MP #### [facility] [address] [place] [address] Dr. Gertrudis Peres Sodium [Moles/Vol] 143 mmol/L Normal 136-145 [facility] Comment on above: Performed By: #### C MP #### [facility] [address] [address] [address] Gertrudis Peres Urea nitrogen [Mass/Vol] 24.0 mg/dL Critically high 7.0-18.0 [facility] Comment on above: Performed By: #### C MP #### [facility] [address] [address] [address] Gertrudis Peres Urea nitrogen/Creatinine [Mass ratio] 30.0 mg/mg Normal [facility] Comment on above: Performed By: #### C MP #### [facility] [address] [address] [address] Gertrudis Peres US SINGLE QUAD UMBILon [...] TIFFANY ROSE Date: 2021-09-29 14:52 Normal [facility] CBC with Diffon 10-04-2018 Abs. Basophil 0.05 k/uL Normal 0.00-0.20 [facility] Comment on above: Performed By: #### C MPX, CDP #### [facility] [address] [place] [address] [address] [id number] Golf Course Manager: Peter Conklin MD Abs.Imm.Granulocyte <0.03 Normal 0.00-0.30 [facility] Comment on above: Performed By: #### C MPX, CDP #### [address] [place], [place] [address] Golf Course Manager: Peter Conklin MD Abs.Neutrophil (Seg) 4.64 k/uL Normal 1.50-8.10 [facility] Comment on above: Performed By: #### C MPX, CDP #### [address] [place], [facility] Golf Course Manager: Peter Conklin MD Basophils/100 WBC (Bld) 1 % Normal 0-2 [facility] Comment on above: Performed By: #### C MPX, CDP #### [address] [place] [address] Golf Course Manager: Peter Conklin MD Eosinophils #/vol (Bld) 0.35 10*3/uL Normal 0.00-0.44 [facility] Comment on above: Performed By: #### C MPX, CDP #### [facility] [address] [place], [facility] Golf Course Manager: Peter Conklin MD Eosinophils/100 WBC (Bld) 4 % Normal 1-4 [facility] Comment on above: Performed By: #### C MPX, CDP #### [facility] [address] [place], [place] [address] Golf Course Manager: Peter Conklin MD Erythrocyte distribution width Ratio (RBC) 13.8 % Normal 11.8-14.4 [facility] Comment on above: Performed By: #### C MPX, CDP #### [facility] [address] [place], [facility] Golf Course Manager: Peter Conklin MD Hematocrit Volume Fraction (Bld) 44.8 % Normal 36.3-47.1 [facility] Comment on above: Performed By: #### C MPX, CDP #### [facility] [address] [place], [facility] Golf Course Manager: Peter Conklin MD Hemoglobin mass conc (Bld) 14.1 g/dL Normal 11.9-15.1 [facility] Comment on above: Performed By: #### C MPX, CDP #### [facility] [address] [place], [facility] Golf Course Manager: Peter Conklin MD Immature granulocytes #/vol (Bld) 0 % Normal 0 [facility] Comment on above: Performed By: #### C MPX, CDP #### [facility] [address] [place], [facility] Golf Course Manager: Peter Conklin MD Lymphocytes #/vol (Bld) 2.23 10*3/uL Normal 1.10-3.70 [facility] Comment on above: Performed By: #### C MPX, CDP #### [facility] [address] [place], [facility] Golf Course Manager: Peter Conklin MD Lymphocytes/100 WBC (Bld) 27 % Normal 24-43 [facility] Comment on above: Performed By: #### C MPX, CDP #### [facility] [address] [place], [place] [id number] Golf Course Manager: Peter Conklin MD MCH Entitic mass (RBC) 27.8 pg Normal 25.2-33.5 [facility] Comment on above: Performed By: #### C MPX, CDP #### [facility] [address] [place], [place] [phone] Golf Course Manager: Peter Conklin MD MCHC mass conc (RBC) 31.5 g/dL Normal 28.4-34.8 [facility] Comment on above: Performed By: #### C MPX, CDP #### [facility] [address] [place], [place] [id number] Golf Course Manager: Peter Conklin MD MCV Entitic volume (RBC) 88.4 fL Normal 82.6-102.9 [facility] Comment on above: Performed By: #### C MPX, CDP #### [facility] [address] [place], [place] [id number] Golf Course Manager: Peter Conklin MD Monocytes #/vol (Bld) 0.84 10*3/uL Normal 0.10-1.20 [facility] Comment on above: Performed By: #### C MPX, CDP #### [facility] [address] [place], [place] [id number] Golf Course Manager: Peter Conklin MD Monocytes/100 WBC (Bld) 10 % Normal 3-12 [facility] Comment on above: Performed By: #### C MPX, CDP #### [facility] [address] [place], [place] [id number] Golf Course Manager: Peter Conklin MD Neutrophil (Seg) 58 % Normal 36-65 [facility] Comment on above: Performed By: #### C MPX, CDP #### [facility] [address] [place], [place] [phone] Golf Course Manager: Peter Conklin MD NRBC Automated 0.0 per 100 WBC Normal 0.0 [facility] Comment on above: Performed By: #### C MPX, CDP #### [facility] [address] [place], [place] [id number] Golf Course Manager: Peter Conklin MD Platelet mean volume Entitic volume (Bld) 11.7 fL Normal 8.1-13.5 [facility] Comment on above: Performed By: #### C MPX, CDP #### [facility] [address] [place], [place] [id number] Golf Course Manager: Peter Conklin MD Platelets #/vol (Bld) 269 10*3/uL Normal 138-453 [facility] Comment on above: Performed By: #### C MPX, CDP #### [address] [place], [place] [id number] Golf Course Manager: Peter Conklin MD RBC #/vol (Bld) 5.07 10*6/uL Normal 3.95-5.11 [facility] Comment on above: Performed By: #### C MPX, CDP #### [facility] [address] [place] [address] Golf Course Manager: Peter Conklin MD WBC #/vol (Bld) 8.1 10*3/uL Normal 3.5-11.3 [facility] Comment on above: Performed By: #### C MPX, CDP #### [facility] [address] [place] [address] Golf Course Manager: Peter Conklin MD Auto Diff Performed NOT REPORTED [facility] Comment on above: Performed By: #### C MPX, CDP #### [facility] [address] [place], [place] [phone] Golf Course Manager: Peter Conklin MD Platelets #/vol (Bld) NOT REPORTED Normal [facility] Comment on above: Performed By: #### C MPX, CDP #### [facility] [address] [place] [address] Golf Course Manager: Peter Conklin MD RBC morphology finding Nom (Bld) NOT REPORTED Normal [facility] Comment on above: Performed By: #### C MPX, CDP #### [facility] [address] [place] [address] Golf Course Manager: Peter Conklin MD WBC Morphology NOT REPORTED Normal [facility] Comment on above: Performed By: #### C MPX, CDP #### [facility] [address] [place], [place] [id number] Golf Course Manager: Peter Conklin MD CT ABDOMEN PELVIS WO [...] Sushant Dobbs MD 10/04/18 Final result Normal [facility] Comp Metabolic Pr/rfx MGon 0 10-04-2018 (cont.) Normal [facility] Comment on above: Result Comment: Aver age GFR for 60-69 years old: 85 mL/min/1.73sq m Chronic Kidney Disease: <60 mL/min/1.73sq m Kidney failure: <15 mL/min/1.73sq m eGFR calculated using average adult body mass. Additional eGFR calculator available at: http://www.WIB.Delivery Agent/multiple_crcl_2012.htm Performed By: #### C GABRIELLE, CDP #### [facility] [address] [place] [address] [place] [address] Golf Course Manager: Peter Conklin MD Albumin mass conc 4.3 g/dL Normal 3.5-5.2 [facility] Comment on above: Performed By: #### C GABRIELLE, CDP #### [facility] [address] [place] [address] Golf Course Manager: Peter Conklin MD Albumin/Globulin mass ratio 1.2 {ratio} Normal 1.0-2.5 [facility] Comment on above: Performed By: #### C GABRIELLE, CDP #### [facility] [address] [place] [address] [place] [address] Golf Course Manager: Peter Conklin MD Alkaline Phos 184 U/L High 35-104 [facility] Comment on above: Performed By: #### C MPX, CDP #### [facility] [address] [place], [place] [id number] Golf Course Manager: Peter Conklin MD ALT enzyme act/vol 16 U/L Normal 5-33 [facility] Comment on above: Performed By: #### C MPX, CDP #### [facility] [address] [place], [place] [phone] Golf Course Manager: Peter Conklin MD Anion gap molar conc 13 mmol/L Normal 9-17 [facility] Comment on above: Performed By: #### C MPX, CDP #### [facility] [address] [place], [place] [phone] Golf Course Manager: Peter Conklin MD AST enzyme act/vol 20 U/L Normal <32 [facility] Comment on above: Performed By: #### C MPX, CDP #### [facility] [address] [place], [place] [id number] Golf Course Manager: Peter Conklin MD Bilirubin Ql (U) 0.36 mg/dL Normal 0.3-1.2 [facility] Comment on above: Performed By: #### C MPX, CDP #### [facility] [address] [place], [place] [id number] Golf Course Manager: Peter Conklin MD BUN/CRE Ratio 53 High 9-20 [facility] Comment on above: Performed By: #### C MPX, CDP #### [facility] [address] [place], [place] [id number] [employer] Course Manager: Peter Conklin MD Calcium mass conc 9.2 mg/dL Normal 8.6-10.4 [facility] Comment on above: Performed By: #### C MPX, CDP #### [facility] [address] [place], [place] [id number] [employer] Course Manager: Peter Conklin MD Chloride molar conc 103 mmol/L Normal 98-107 [facility] Comment on above: Performed By: #### C MPX, CDP #### [facility] [address] [place], [place] [id number] [employer] Course Manager: Peter Conklin MD CO2 molar conc 25 mmol/L Normal 20-31 [facility] Comment on above: Performed By: #### C MPX, CDP #### [facility] [address] [place], [place] [id number] [employer] Course Manager: Peter Conklin MD Creatinine mass conc 0.60 mg/dL Normal 0.50-0.90 [facility] Comment on above: Performed By: #### C MPX, CDP #### [facility] [address] [place], [place] [id number] [employer] Course Manager: Peter Conklin MD GFR, Amer >60 Normal >60 [facility] Comment on above: Performed By: #### C MPX, CDP #### [facility] [address] [place], [place] [id number] [employer] Course Manager: Peter Conklin MD GFR,non Amer >60 Normal >60 [facility] Comment on above: Performed By: #### C MPX, CDP #### [facility] [address] [place] [address] [employer] Course Manager: Peter Conklin MD Glucose mass conc 123 mg/dL High 70-99 [facility] Comment on above: Performed By: #### C MPX, CDP #### [facility] [address] [place], [place] [id number] [employer] Course Manager: Peter Conklin MD Potassium molar conc 4.0 mmol/L Normal 3.7-5.3 [facility] Comment on above: Performed By: #### C MPX, CDP #### [facility] [address] [place], [place] [id number] [employer] Course Manager: Peter Conklin MD Protein mass conc 7.8 g/dL Normal 6.4-8.3 [facility] Comment on above: Performed By: #### C MPX, CDP #### [facility] [address] [place], [place] [id number] [employer] Course Manager: Peter Conklin MD Sodium molar conc 141 mmol/L Normal 135-144 [facility] Comment on above: Performed By: #### C MPX, CDP #### [facility] [address] [place], [place] [phone] [employer] Course Manager: Peter Conklin MD Staging: Normal [facility] Comment on above: Result Comment: Stag e 1: Some kidney damage normal GFR Stage 2: Mild kidney damage GFR 60-89 Stage 3: Moderate kidney damage GFR 30-59 Stage 4: Severe kidney damage GFR 15-29 Stage 5: Severe kidney damage GFR <15 ESRD - chronic treatment by dialysis or transplant Performed By: #### C MPX, CDP #### [facility] [address] [place], [place] [id number] [employer] Course Manager: Peter Conklin MD Urea nitrogen mass conc 32 mg/dL High 8-23 [facility] Comment on above: Performed By: #### C MPX, CDP #### [facility] [address] [place], [place] [id number] [employer] Course Manager: Peter Conklin MD Urinalysis, Routineon 2018 Acetoacetic Acid,Ur Negative Normal NEG [facility] Comment on above: Performed By: #### U A, UMICAO #### [facility] [address] [place], [place] [id number] [employer] Course Manager: Peter Conklin MD Bilirubin, SemiQt,Ur Negative Normal NEG [facility] Comment on above: Performed By: #### U A, UMICAO #### [facility] [address] [place], [place] [id number] [employer] Course Manager: Peter Conklin MD Color Nom (U) YELLOW Normal YEL [facility] Comment on above: Performed By: #### U A, UMICAO #### [facility] [address] [place] [address] [employer] Course Manager: Peter Conklin MD Glucose,Semi-qnt,Ur Negative Normal NEG [facility] Comment on above: Performed By: #### U A, UMICAO #### [facility] [address] [place] [address] [employer] Course Manager: Peter Conklin MD Hemoglobin, Ur 3+ Abnormal NEG [facility] Comment on above: Performed By: #### U A, UMICAO #### [facility] [address] [place] [address] [employer] Course Manager: Peter Conklin MD Leuckocyte Esterase SMALL Abnormal [facility] Comment on above: Performed By: #### U A, UMICAO #### [facility] [address] [place] [address] [employer] Course Manager: Peter Conklin MD Nitrite,Ur Negative Normal [facility] Comment on above: Performed By: #### U A, UMICAO #### [facility] [address] [place] [address] [employer] Course Manager: Peter Conklin MD PH,Ur 5.5 Normal 5.0-9.0 [facility] Comment on above: Performed By: #### U A, UMICAO #### [facility] [address] [place] [address] [employer] Course Manager: Peter Conklin MD Protein mass conc (U) TRACE Abnormal [facility] Comment on above: Performed By: #### U A, UMICAO #### [facility] [address] [place], [place] [id number] [employer] Course Manager: Peter Conklin MD Spec. Perham,Ur >1.030 High 1.010-1.020 [facility] Comment on above: Performed By: #### U A, UMICAO #### [facility] [address] [place], [place] [id number] [employer] Course Manager: Peter Conklin MD Turbidity SLIGHTLY CLOUDY Abnormal CLEAR [facility] Comment on above: Performed By: #### U A, UMICAO #### [facility] [address] [place], [place] [phone] [employer] Course Manager: Peter Conklin MD Urobilinogen,Ur Normal Normal NORM [facility] Comment on above: Performed By: #### U A, UMICAO #### [facility] [address] [place] [address] [employer] Course Manager: Peter Conklin MD Comment NOT REPORTED Normal [facility] Comment on above: Performed By: #### U A, UMICAO #### [facility] [address] [place] [address] Golf Course Manager: Peter Conklin MD Urinalysis,Microon 9 ----- Normal [facility] Comment on above: Performed By: #### U A, UMICAO #### [facility] [address] [place] [address] [employer] Course Manager: Peter Conklin MD Bacteria LM.HPF #/area (Urine sed) TRACE Abnormal NONE [facility] Comment on above: Performed By: #### U A, UMICAO #### [facility] [address] [place] [address] Golf Course Manager: Peter Conklin MD Epithelial cells LM.HPF #/area (Urine sed) 2 TO 5 Normal 0-25 [facility] Comment on above: Performed By: #### U A, UMICAO #### [facility] [address] [place], [place] [id number] [employer] Course Manager: Peter Conklin MD Mucus Strands TRACE Abnormal [facility] Comment on above: Performed By: #### U A, UMICAO #### [facility] [address] [place] [address] Golf Course Manager: Peter Conklin MD RBC #/vol (U) 50 TO 100 Normal 0-2 [facility] Comment on above: Performed By: #### U A, UMICAO #### [facility] [address] [place] [address] Golf Course Manager: Peter Conklin MD WBC #/vol (U) 2 TO 5 Normal 0-5 [facility] Comment on above: Performed By: #### U A, UMICAO #### [facility] [address] [place] [address] Golf Course Manager: Peter Conklin MD Amorphous sediment LM Ql (Urine sed) NOT REPORTED Normal [facility] Comment on above: Performed By: #### U A, UMICAO #### [facility] [address] [place] [id number] [employer] Course Manager: Peter Conklin MD Casts LM.LPF #/area (Urine sed) NOT REPORTED Normal [facility] Comment on above: Performed By: #### U A, UMICAO #### [facility] [address] [place] [address] Golf Course Manager: Peter Conklin MD Crystals LM Nom (Urine sed) NOT REPORTED Normal [facility] Comment on above: Performed By: #### U A, UMICAO #### [facility] [address] [place], [facility] Golf Course Manager: Peter Conklin MD Epithelial, Renal NOT REPORTED Normal 0 [facility] Comment on above: Performed By: #### U A, UMICAO #### [facility] [address] [place] [address] Golf Course Manager: Peter Conklin MD Other Observations NOT REPORTED Normal NREQ [facility] Comment on above: Performed By: #### U A, UMICAO #### [facility] [address] [place] [address] Golf Course Manager: Peter Conklin MD Trichomonas NOT REPORTED Normal NONE [facility] Comment on above: Performed By: #### U A, UMICAO #### [facility] [address] [place] [address] Golf Course Manager: Peter Conklin MD Yeast LM Ql (Urine sed) NOT REPORTED Normal NONE [facility] Comment on above: Performed By: #### U A, UMICAO #### [facility] [address] [place] [address] Golf Course Manager: Peter Conklin MD Vital Signs Date Time Vital Sign Value Performing Clinician Facility 03-13-2024 09:29-0400 Body height 160.02 cm [facility] 03-13-2024 09:290400 Body mass index (BMI) [Ratio] 37.6 kg/m2 [facility] 03-13-2024 09:29-0400 Body weight 96.38 kg [facility] 03-13-2024 09:29-0400 Diastolic blood pressure 81 mm[Hg] [facility] 03-13-2024 09:29-0400 Heart rate 80 /min [facility] 03-13-2024 09:29-0400 Respiratory rate 12 /min [facility] 03-13-2024 09:29-0400 Systolic blood pressure 142 mm[Hg] [facility] 01-29-2024 10:03-0400 Body height 160.02 cm [facility] 01-29-2024 10:03-0400 Body mass index (BMI) [Ratio] 37.2 kg/m2 [facility] 01-29-2024 10:03-0400 Body weight 95.36 kg [facility] 01-29-2024 10:03-0400 Diastolic blood pressure 78 mm[Hg] [facility] 01-29-2024 10:03-0400 Heart rate 61 /min [facility] 01-29-2024 10:03-0400 Respiratory rate 12 /min [facility] 01-29-2024 10:03-0400 Systolic blood pressure 139 mm[Hg] [facility] 10-30-2023 09:35-0400 Body height 160.02 cm DO Mckinley Ball Work Phone: [facility] 10-30-2023 09:35-0400 Body mass index (BMI) [Ratio] 37.3 kg/m2 DO Mckinley Ball Work Phone: [facility] 10-30-2023 09:35-0400 Body weight 95.42 kg DO Mckinley Ball Work Phone: [facility] 10-30-2023 09:35-0400 Diastolic blood pressure 89 mm[Hg] DO Mckinley Ball Work Phone: [facility] 10-30-2023 09:35-0400 Heart rate 82 /min DO Mckinley Ball Work Phone: [facility] 10-30-2023 09:35-0400 Respiratory rate 12 /min DO Mckinley Ball Work Phone: [facility] 10-30-2023 09:35-0400 Systolic blood pressure 164 mm[Hg] DO Mckinley Ball Work Phone: [facility] 10-12-2023 09:18-0400 Body height 160.02 cm DO Mckinley Ball Work Phone: [facility] 10-12-2023 09:18-0400 Body mass index (BMI) [Ratio] 37 kg/m2 DO Mckinley Ball Work Phone: [facility] 10-12-2023 09:18-0400 Body weight 94.85 kg DO Mckinley Ball Work Phone: [facility] 10-12-2023 09:18-0400 Diastolic blood pressure 77 mm[Hg] DO Mckinley Ball Work Phone: [facility] 10-12-2023 09:18-0400 Heart rate 77 /min DO Mckinley Ball Work Phone: [facility] 10-12-2023 09:18-0400 Respiratory rate 12 /min DO Mckinley Ball Work Phone: [facility] 10-12-2023 09:18-0400 Systolic blood pressure 148 mm[Hg] DO Mckinley Ball Work Phone: [facility] 07-30-2023 15:01-0400 Body height 160.02 cm DO Mckinley Ball Work Phone: [facility] 07-30-2023 15:01-0400 Body mass index (BMI) [Ratio] 36.6 kg/m2 DO Mckinley Ball Work Phone: [facility] 07-30-2023 15:01-0400 Body weight 93.66 kg DO Mckinley Ball Work Phone: [facility] 07-30-2023 15:01-0400 Diastolic blood pressure 90 mm[Hg] DO Mckinley Ball Work Phone: [facility] 07-30-2023 15:01-0400 Heart rate 75 /min DO Mckinley Ball Work Phone: [facility] 07-30-2023 15:01-0400 Systolic blood pressure 149 mm[Hg] DO Mckinley Ball Work Phone: [facility] 06-13-2023 09:00-0500 Body height 161.29 cm Mckinley Ball Other [facility] [employer] Other 06-13-2023 09:00-0500 Body mass index (BMI) [Ratio] 35.43 kg/m2 Mckinley Ball Other [facility] [employer] Other 06-13-2023 09:00-0500 Body weight 92.17 kg Mckinley Ball Other [facility] [employer] Other 06-13-2023 09:00-0500 Diastolic blood pressure 77 mm[Hg] Mckinley Ball Other [employer] Other 06-13-2023 09:00-0500 Respiratory rate 12 /min Mckinley Ball Other [employer] Other 06-13-2023 09:00-0500 Systolic blood pressure 127 mm[Hg] Mckinley Ball Other [employer] Other 05-03-2023 08:30-0500 Body height 161.29 cm Mckinley Ball Other [employer] Other 05-03-2023 08:30-0500 Body mass index (BMI) [Ratio] 35.39 kg/m2 Mckinley Ball Other [employer] Other 05-03-2023 08:30-0500 Body weight 92.08 kg Mckinley Ball Other [employer] Other 05-03-2023 08:30-0500 Diastolic blood pressure 79 mm[Hg] Mckinley Ball Other [employer] Other 05-03-2023 08:30-0500 Respiratory rate 12 /min Mckinley Ball Other [employer] Other 05-03-2023 08:30-0500 Systolic blood pressure 133 mm[Hg] Mckinley Ball Other [employer] Other 03-08-2023 09:30-0400 Body height 161.29 cm Mckinley Ball Other [employer] Other 03-08-2023 09:30-0400 Body mass index (BMI) [Ratio] 35.01 kg/m2 Mckinley Ball Other [employer] Other 03-08-2023 09:30-0400 Body weight 91.08 kg Mckinley Ball Other [employer] Other 03-08-2023 09:30-0400 Diastolic blood pressure 83 mm[Hg] Mckinley Ball Other [employer] Other 03-08-2023 09:30-0400 Respiratory rate 12 /min Mckinley Ball Other [employer] Other 03-08-2023 09:30-0400 Systolic blood pressure 134 mm[Hg] Mckinley Ball Other [employer] Other 01-04-2023 11:30-0400 Body height 161.29 cm Mckinley Ball Other [employer] Other 01-04-2023 11:30-0400 Body mass index (BMI) [Ratio] 34.69 kg/m2 Mckinley Ball Other [employer] Other 01-04-2023 11:30-0400 Body weight 90.27 kg Mckinley Ball Other [employer] Other 01-04-2023 11:30-0400 Diastolic blood pressure 81 mm[Hg] Mckinley Ball Other [employer] Other 01-04-2023 11:30-0400 Respiratory rate 12 /min Mckinley Ball Other [employer] Other 01-04-2023 11:30-0400 Systolic blood pressure 131 mm[Hg] Mckinley Ball Other [employer] Other 12-12-2022 07:50-0400 Body height 153.1 cm Gustavo Li MD Work Phone: [facility] 12-12-2022 07:50-0400 Body mass index (BMI) [Ratio] 38.4 kg/m2 Gustavo Li MD Work Phone: [facility] 12-12-2022 07:50-0400 Body weight 90 kg Gustavo Li MD Work Phone: [facility] 11-01-2022 14:30-0400 Body height 161.29 cm Keara Bullard Other [employer] Other 11-01-2022 14:30-0400 Body mass index (BMI) [Ratio] 35.22 kg/m2 Keara Bullard Other [employer] Other 11-01-2022 14:30-0400 Body weight 91.63 kg Keara Bullard Other [employer] Other 11-01-2022 14:30-0400 Diastolic blood pressure 84 mm[Hg] Keara Bullard Other [employer] Other 11-01-2022 14:30-0400 Systolic blood pressure 130 mm[Hg] Keara Bullard Other [employer] Other 09-28-2022 10:05-0400 Diastolic blood pressure 75 mm[Hg] DO Larky Work Phone: [facility] 09-28-2022 10:05-0400 Heart rate 60 /min DO Larky Work Phone: [facility] 09-28-2022 10:05-0400 Respiratory rate 16 /min DO Larky Work Phone: [facility] 09-28-2022 10:05-0400 SaO2% (BldA) [Mass fraction] 98 % DO Larky Work Phone: [facility] 09-28-2022 10:05-0400 Systolic blood pressure 153 mm[Hg] DO Larky Work Phone: [facility] 09-28-2022 07:48-0400 Body height 160.02 cm DO Arnoldo Nixon Work Phone: [facility] 09-28-2022 07:48-0400 Body temperature 98.9 [degF] DO Arnoldo Nixon Work Phone: [facility] 09-28-2022 07:48-0400 Body weight 93.89 kg DO Arnoldo Nixon Work Phone: [facility] 07-04-2022 09:30-0500 Body height 161.29 cm Mckinley Ball Other [employer] Other 07-04-2022 09:30-0500 Body mass index (BMI) [Ratio] 36.3 kg/m2 Mckinley Ball Other [employer] Other 07-04-2022 09:30-0500 Body weight 94.44 kg Mckinley Ball Other [employer] Other 07-04-2022 09:30-0500 Diastolic blood pressure 78 mm[Hg] Mckinley Ball Other [employer] Other 07-04-2022 09:30-0500 Respiratory rate 12 /min Mckinley Ball Other [employer] Other 07-04-2022 09:30-0500 Systolic blood pressure 122 mm[Hg] Mckinley Ball Other [employer] Other 03-09-2022 15:30-0400 Body height 161.29 cm Arabella Arechiga Other [employer] Other 03-09-2022 15:30-0400 Body mass index (BMI) [Ratio] 36.79 kg/m2 Arabella Arechiga Other [employer] Other 03-09-2022 15:30-0400 Body temperature 97.1 [degF] Arabella Arechiga Other [employer] Other 03-09-2022 15:30-0400 Body weight 95.71 kg Arabella Arechiga Other [employer] Other 03-09-2022 15:30-0400 Diastolic blood pressure 85 mm[Hg] Arabella Arechiga Other [employer] Other 03-09-2022 15:30-0400 Respiratory rate 18 /min Arabella Arechgia Other [employer] Other 03-09-2022 15:30-0400 SaO2% (BldA) [Mass fraction] 99 % Arabella Arechiga Other [employer] Other 03-09-2022 15:30-0400 Systolic blood pressure 135 mm[Hg] Arabella Arechiga Other [employer] Other Encounters Encounter Date Encounter Type Care Provider Facility Start: 03-13-2024 End: 03-13-2024 ambulatory [facility] Work Phone: Start: 03-13-2024 End: 03-13-2024 Patient encounter procedure [facility] Work Phone: Start: 02-26-2024 Non-patient / [facility] Start: 01-29-2024 End: 01-29-2024 ambulatory [facility] Work Phone: Start: 01-29-2024 End: 01-29-2024 Patient encounter procedure [facility] Work Phone: Start: 12-31-2023 Non-patient / Non-visit [facility] Work Phone: Start: 12-03-2023 Non-patient / Non-visit [facility] Work Phone: Start: 11-19-2023 Non-patient / Non-visit [facility] Work Phone: Start: 10-30-2023 End: 10-30-2023 ambulatory DO Mckinley Ball Work Phone: [facility] Work Phone: Start: 10-30-2023 End: 10-30-2023 Patient encounter procedure DO Mckinley Ball Work Phone: [facility] Work Phone: Start: 10-12-2023 End: 10-12-2023 ambulatory DO Mckinley Ball Work Phone: [facility] Work Phone: Start: 10-12-2023 End: 10-12-2023 Patient encounter procedure DO Mckinley Ball Work Phone: [facility] Work Phone: Start: 09-13-2023 End: 09-13-2023 ambulatory Mckinley Ball Facility:[facility] Start: 09-13-2023 End: 09-13-2023 ambulatory DO Mckinley Ball Work Phone: [facility] Work Phone: Start: 09-13-2023 End: 09-13-2023 Patient encounter procedure DO Mckinley Ball Work Phone: [facility] [address] Work Phone: Start: 09-12-2023 End: 09-12-2023 ambulatory Mckinley Ball Facility:[facility] Start: 09-12-2023 End: 09-12-2023 ambulatory DO Mckinley Ball Work Phone: [facility] Work Phone: Start: 09-12-2023 End: 09-12-2023 Patient encounter procedure DO Mckinley Alfaro Work Phone: [facility] [address] Work Phone: Start: 09-06-2023 End: 09-07-2023 ambulatory JIL HONG Not Available Start: 08-23-2023 End: 08-23-2023 ambulatory JIL HONG Not Available Start: 08-03-2023 Non-patient / Non-visit DO Augie Alfaro Work Phone: [facility] Work Phone: Start: 07-30-2023 End: 07-30-2023 Patient encounter procedure DO Mckinley Alfaro Work Phone: [facility] Work Phone: Start: 07-26-2023 End: 07-27-2023 ambulatory JIL HONG Not Available Start: 07-10-2023 End: 07-10-2023 ambulatory JIL HONG Not Available Start: 06-15-2023 End: 06-15-2023 ambulatory LYRIC Soraida RODRIGUEZ Not Available Start: 06-13-2023 Office outpatient vi sit 15 minutes Mckinley Alfaro [facility] Start: 06-13-2023 End: 06-14-2023 ambulatory JOHN JEROME [facility] [employer] Other Start: 06-12-2023 End: 06-12-2023 ambulatory DELL [...] Not Available Start: 05-22-2023 End: 05-22-2023 ambulatory RAHCELLE JETER Not Available Start: 05-18-2023 End: 05-18-2023 ambulatory Mckinley Alfaro Other [employer] Other Start: 05-18-2023 Telephone encounter Mckinley Saleem [facility] Start: 05-10-2023 End: 05-10-2023 ambulatory RACHELLE JETER Not Available Start: 05-08-2023 End: 05-08-2023 ambulatory JIL HONG Not Available Start: 05-07-2023 End: 05-08-2023 ambulatory ALMilvia SALGADO Not Available Start: 05-03-2023 End: 05-03-2023 ambulatory IVONNE BORREROADOLPHY [employer] Other Start: 05-03-2023 Office outpatient vi sit 15 minutes Mckinley Alfaro [facility] Start: 04-30-2023 End: 05-01-2023 ambulatory IVONNE [...] 03-08-2023 End: 03-08-2023 ambulatory Mckinley Alfaro Other [employer] Other Start: 03-08-2023 Office outpatient vi sit 15 minutes Mckinley Alfaro [facility] Start: 02-07-2023 End: 02-07-2023 ambulatory Mckinley Alfaro Other [employer] Other Start: 02-07-2023 Telephone encounter Mckinley BRYANT [facility] Start: 01-04-2023 End: 01-04-2023 ambulatory Mckinley Alfaro Other [employer] Other Start: 01-04-2023 Encounter for other preprocedural examination Mckinley Alfaro [facility] Start: 01-04-2023 Office outpatient vi sit 25 minutes Mckinley Alfaro [facility] Start: 12-21-2022 Message Mckinley chase Work Phone: [facility] Work Phone: Start: 12-12-2022 End: 12-12-[address] Gustavo Li Facility:[id number] Start: 12-12-2022 End: 12-12-2022 Subsequent hospital visit by physician Gustavo Li MD Work Phone: [facility] Comment on above: Polyp of stomach and duodenum Start: 11-16-2022 End: 11-16-2022 ambulatory Mckinley Alfaro Other [employer] Other Start: 11-16-2022 Telephone encounter Mckinley BRYANT [facility] Start: 11-01-2022 End: 11-01-2022 ambulatory Keara Bullard Other [employer] Other Start: 11-01-2022 Office outpatient vi sit 15 minutes Keara Bullard [facility] Start: 09-28-2022 End: 09-28-2022 ambulatory Niurka Oliveira Facility:[facility] Start: 09-28-2022 End: 09-28-2022 Admission to same day surgery center DO Arnoldo House Work Phone: [facility] Work Phone: Start: 09-28-2022 End: 09-28-2022 ambulatory DO Arnoldo House Work Phone: [facility] Work Phone: Start: 07-20-2022 End: 07-20-2022 ambulatory Mckinley Alfaro Other [employer] Other Start: 07-20-2022 Telephone encounter Mckinley Alfaro FP [facility] Start: 07-19-2022 End: 07-20-[address] MCKINLEY ALFARO Facility:H1 Start: 07-04-2022 End: 07-04-2022 ambulatory Mckilney Alfaro Other [facility] Other Start: 07-04-2022 Office outpatient vi sit 25 minutes Mckinley Alfaro [facility] Start: 06-14-2022 End: 06-14-2022 ambulatory Arabella Arechiga Other [facility] Other Start: 06-14-2022 Telephone encounter Arabella Chaconl t [facility] Start: 06-13-2022 End: 06-14-[address] MCKINLEY ALFARO Facility:[facility]1 Start: 06-07-2022 End: 06-07-[address] MCKINLEY ALFARO Facility:[facility] Start: 05-03-2022 End: 05-04-[address] MCKINLEY ALFARO Facility:[facility]1 Start: 03-31-2022 End: 04-01-[address] MCKINLEY ALFARO Facility:[facility] Start: 03-09-2022 End: 03-09-2022 ambulatory Arabella Arechiga Other [facility] Other Start: 03-09-2022 Office outpatient vi sit 15 minutes Arabella Arechiga [facility] Start: 09-29-2021 End: 09-30-[address] MCKINLEY ALFARO Facility:[facility]1 Start: 10-05-2018 End: 10-05-2018 Emergency department patient visit MCKINLEY ALFARO [facility] Start: 10-04-2018 End: 10-04-2018 Emergency department patient visit HARJIT OLIVIA [facility] Start: 09-25-2017 End: 09-26-2017 Ambulatory DEFAULT PHYSICIAN Facility:[facility] Start: 09-07-2017 End: 09-08-2017 Ambulatory DEFAULT PHYSICIAN Facility:[facility] Procedures Date Procedure Procedure Detail Performing Clinician [...] Start: 09-12-2023 Hepatitis B core antibody measurement [facility] Start: 09-12-2023 [facility] Start: 01-19-2023 Influenza vaccination Influenza Vaccine (#1) [facility] Start: 09-28-2022 [facility] Start: 2017 Pneumococcal Vaccine: 65+ Years (1 - PCV) Pneumococcal Vaccine: 65+ Years (1 - PCV) [facility] Start: 2002 Zoster Vaccines (1 of 2) Zoster Vaccines (1 of 2) [facility] Start: 1992 Screening for malignant neoplasm of breast Mammogram [facility] Start: 1974 DTaP/Tdap/Td Vaccines (1 - Tdap) DTaP/Tdap/Td Vaccines (1 - Tdap) [facility] Start: 1970 Hepatitis C screening Hepatitis C Screening [facility] Start: 1950 COVID-19 Vaccine (#1) COVID-19 Vaccine (#1) [facility] Start: 1952 Lipid panel Lipid Panel [facility] Start: 1950 Screening for malignant neoplasm of colon [facility] Start: 1952 Screening for osteoporosis Bone Density Scan [facility] Start: 1952 Yearly Adult Physical Yearly Adult Physical [facility] Comprehensive metabo lic 2000 panel - Serum or Plasma [facility] Hepatitis B virus jimenez rface Ab [Presence] in Serum [facility] Hepatitis B virus jimenez rface Ag [Presence] in Serum or Plasma by Immunoassay [facility] Hepatitis C virus Ig G Ab [Presence] in Serum or Plasma by Immunoassay [facility] MG Breast - bilatera l Screening [facility] Patient Education Esophageal Dil ation Hiatal Hernia (DC) Stomach Polyps [facility] Work Phone: Rheumatoid factor [Units/volume] in Serum or Plasma [facility] Thyroid stimulating immunoglobulins actual/normal in Serum [facility] XR Hip - left 2 Views [facility] Immunizations Immunization Date Immunization Notes Care Provider Fa velia 01-29-2024 influenza, high dose seasonal, preservative-free [facility] 03-08-2023 influenza virus vaccine, unspecified formulation DO Mckinley Alfaro Work Phone: [facility] 03-08-2023 influenza, high dose seasonal, preservative-free Mckinley Alfaro Other [facility] Other 04-07-2022 diphtheria, tetanus toxoids and acellular pertussis vaccine, unspecified formulation Mckinley Alfaro Other [facility] 03-01-2022 influenza virus vaccine, split virus (incl. purified surface antigen) Mckinley Alfaro Other [facility] Other 03-01-2022 influenza virus vaccine, unspecified formulation DO Mckinley Alfaro Work Phone: [facility] 08-04-2019 pneumococcal conjuga te vaccine, 13 valent Mckinley Alfaro Other [facility] Payers Date Payer Category Payer Self-pay [id number] 2022 Unknown [id number] 2015 Unknown [id number] 2015 Unknown [id number] 1959 Medicare [id number] 2.16.840.1.019009.19 1959 Self-pay [id number] 1959 Unknown [id number] 2.16.840.1.348736.19 1952 Unknown [id number] 2.16.840.1.909071.3.579.2.1 73 1952 Unknown [id number] 2.16.840.1.420789.3.579.2.1 73 1952 Unknown [id number] 2.16.840.1.253793.3.579.2.5 93 1952 Unknown [id number] 2.16.840.1.058648.3.579.2.5 93 1952 Unknown [id number] 2.16.840.1.689137.3.579.2.5 93 1952 Unknown [id number] 2.16.840.1.466875.3.579.2.5 93 1952 Unknown [id number] 2.16.840.1.766368.3.579.2.5 93 1952 Unknown [id number] 2.16.840.1.471892.3.579.2.1 069 1952 Unknown [id number] 2.16.840.1.071325.3.579.2.1 259 1952 Unknown [id number] 2.16.840.1.510730.3.579.2.1 259 1952 Unknown [id number] 2.16.840.1.451487.3.579.2.1 259 1952 Unknown [id number] 2.16.840.1.590122.3.579.2.1 259 1952 Unknown [id number] 2.16.840.1.157035.3.579.2.1 259 1952 Unknown [id number] 2.16.840.1.782044.3.579.2.1 259 1952 Unknown [id number] 2.16.840.1.220833.3.579.2.1 259 1952 Unknown [id number] 2.16.840.1.675594.3.579.2.1 259 1952 Unknown [id number] 2.16.840.1.467397.3.579.2.1 259 1952 Unknown [id number] 2.16.840.1.704261.3.579.2.1 259 1952 Unknown [id number] 2.16.840.1.685185.3.579.2.1 259 1952 Unknown [id number] 2.16.840.1.334880.3.579.2.1 259 1952 Unknown [id number] 2.16.840.1.611645.3.579.2.1 259 1952 Unknown [id number] 2.16.840.1.597649.3.579.2.1 259 1952 Unknown [id number] 2.16.840.1.418678.3.579.2.1 259 1952 Unknown [id number] 2.16.840.1.495286.3.579.2.1 259 1952 Unknown [id number] 2.16.840.1.899942.3.579.2.1 259 1952 Unknown [id number] 2.16.840.1.604103.3.579.2.1 259 1952 Unknown [id number] 2.16.840.1.369979.3.579.2.1 259 1952 Unknown [id number] 2.16.840.1.414530.3.579.2.1 259 1952 Unknown [id number] 2.16.840.1.805838.3.579.2.1 259 1952 Unknown [id number] 2.16.840.1.629412.3.579.2.1 259 1952 Unknown [id number] 2.16.840.1.041478.3.579.2.1 259 1952 Unknown [id number] 2.16.840.1.520676.3.579.2.1 259 1952 Unknown [id number] 2.16.840.1.600684.3.579.2.1 259 1952 Unknown [id number] 2.16.840.1.920649.3.579.2.1 259 1952 Unknown [id number] 2.16.840.1.037746.3.579.2.1 259 1952 Unknown [id number] 2.16.840.1.487546.3.579.2.1 259 1952 Unknown [id number] 2.16.840.1.863764.3.579.2.1 259 Medicare Medicare-OP No Part B [id number] Unknown Unknown [id number] 2.16.840.1.384960.3.579.2.5 93 Unknown [id number] 2.16.840.1.028251.3.579.2.5 31 Unknown [id number] 2.16.840.1.191452.3.579.2.5 31 Unknown [id number] 2.16.840.1.512394.3.579.2.5 31 Worker's Compensation [employer] [facility] [id number] Social History Date Type Detail Facility Unknown if ever smoked [facility] [employer] Other Sex Assigned At [facility] [employer] Other Start: 09-28-2022 Tobacco smoking status NHIS Never smoked tobacco (finding) [facility] Start: 1950 Sex Assigned At Female F [facility] Tobacco smoking status [facility] Tobacco smoking consumption unknown [facility] Work Phone: Start: 1950 Sex Assigned At Not on file [facility] Work Phone: Goals Date Patient [...] Orthopedics w/ increased pain or trigger finger [facility] [employer] Other 12-14-2023 Evaluation note* Encounter Date Diagnosis [...] index [BMI] 35.0-35.9, adult (ICD-10 - Z68.35) [facility] Other 10-19-2023 Evaluation note* Encounter Date Diagnosis [...] to r/o fracture Continue Mobic and add Beltrami for now. Consider PT if XR negative Feb, Right hip pain (ICD-10 - M25.551) XR to determine degree of arthritis and r/o fx. ROM exercises COntinue Mobic and add Beltrami for now. Feb, Seborrheic dermatitis (ICD-10 - [...] index [BMI] 35.0-35.9, adult (ICD-10 - Z68.35) [facility] Other 08-17-2023 Evaluation note* Encounter Date Diagnosis [...] also instructed to stop Mobic and start Beltrami, 7 days prior to her procedure. Dec, Gastroesophageal reflux disease with esophagitis without hemorrhage (ICD-10 - K21.00) Stable, continue medication w/o interruption Dec, Traumatic complete tear of right rotator cuff, subsequent encounter (ICD-10 - S46.011D) Scheduled for arthroscopic repair w/ Dr. Hong. 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 Refer to note in patient chart for documentation of history and physical. Providers: Gustavo Li MD (Doctor), Sara Castillo RN (Nurse), Maciel Ferrer, Bicycle I Assembler Referring: Gustavo Li MD Medicines: See the [...] biopsy result. 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 [facility] Other 10-20-2022 Evaluation note* Encounter Date Diagnosis [...] with primary care provider to discuss reaction. [facility] Other Evaluation noteNo InformationNort [employer] Other Evaluation note* Diagnosis Onset Date Resolution Status Dysphagia acute [facility] Work Phone: Evaluation note* Diagnosis Polyp of stomach and duodenum documented in this encounter [facility] Work Phone: Evaluation note* Diagnosis Onset Date Resolution Status Age-related osteoporosis wit hout current pathological fracture acute Dupuytren's contracture of right hand acute GERD (gastroesophageal reflux disease) acute Hypertension acute Inflammatory polyarthritis a cute Lumbar spondylosis acute Trigger finger acute Medicare annual wellness visit, subsequent noneactive Screening mammogram for breast cancer noneactive [facility] Work Phone: Evaluation note* Diagnosis [...] Strain of hip and thigh acut e [facility] Work Phone: Evaluation note* Diagnosis Onset Date Resolution Status Left hip pain acute Primary osteoarthritis of hip acute Strain of hip and thigh acut e Age-related osteoporosis wit hout current pathological fracture acute Fibromyalgia acute GERD (gastroesophageal reflux disease) acute Hypertension acute Inflammatory polyarthritis a cute Lumbar spondylosis acute Trigger finger acute [facility] Work Phone: Evaluation note* Diagnosis Onset Date Resolution Status Age-related osteoporosis wit hout current pathological fracture acute Fibromyalgia acute GERD (gastroesophageal reflux disease) acute Hypertension acute Lumbar spondylosis acute Opiate analgesic use agreement exists acute Psoriatic arthritis acute [facility] Work Phone: Evaluation note* Diagnosis Onset Date Resolution Status Age-related osteoporosis wit hout current pathological fracture acute Fibromyalgia acute GERD (gastroesophageal reflux disease) acute Hypertension acute Lumbar spondylosis acute Opiate analgesic use agreement exists acute Psoriatic arthritis acute Age-related osteoporosis wit hout current pathological fracture acute Fibromyalgia acute GERD (gastroesophageal reflux disease) acute Hypertension acute Lumbar spondylosis acute Psoriatic arthritis acute [facility] Work Phone: [employer] general Narrative - Reported* Type Description Date Medical History Hypertension Medical History Acid reflux Medical History Hiatal hernia Surgical History back surgery x3 Surgical History Neck Surgery Surgical History shoulder arthroscopy Surgical History hysterectomy Surgical History cholecystectomy Hospitalization History see above [facility] Other Hiszxdl general Narrative - Reported* Type Description Date Medical History Hypertension Medical History Acid reflux Medical History Hiatal hernia Surgical History back surgery x3 Surgical History Neck Surgery Surgical History shoulder arthroscopy Surgical History hysterectomy Surgical History cholecystectomy Surgical History EGD w/ bx and dilatation 09/2022 Hospitalization History see above [facility] Other Hisilms general Narrative - Reported* Type Description Date Medical History Hypertension Medical History Acid reflux Medical History Hiatal hernia Surgical History back surgery x3 Surgical History Neck Surgery Surgical History shoulder arthroscopy Surgical History hysterectomy Surgical History cholecystectomy Surgical History EGD w/ bx and dilatation 09/2022 Surgical History Right shoulder arthroscopy 02/07 23 Hospitalization History see above [facility] Other History general Narrative - Reported* Type Description Date Medical History Hypertension Medical History Acid reflux Medical History Hiatal hernia Surgical History back surgery x3 Surgical History Neck Surgery Surgical History shoulder arthroscopy Surgical History hysterectomy Surgical History cholecystectomy Surgical History EGD w/ bx and dilatation 09/2022 Surgical History Right shoulder arthroscopy 02/07 23 Surgical History Endoscopic US 11/2022 Hospitalization History see above [facility] Other Hospital Discharge instructions Additional Instructions DISCHARGE [...] if you have any problems. -Office number [phone] Work Phone: Summary Purpose Family [...] section and content) DATE CREATED AUTHOR 11/08/2017 [facility] DATE CREATED AUTHOR AUTHOR'S ORGANIZ ATION 10/13/2018 [facility] DATE CREATED AUTHOR AUTHOR'S ORGANIZ ATION 07/21/2022 [facility] DATE CREATED AUTHOR AUTHOR'S ORGANIZ ATION 12/21/2022 [facility] DATE CREATED AUTHOR AUTHOR'S ORGANIZ ATION 12/22/2022 [facility] DATE CREATED AUTHOR AUTHOR'S ORGANIZ ATION 09/10/2023 [facility] EPIC DATE CREATED AUTHOR AUTHOR'S ORGANIZ ATION 09/21/2023 [facility] REASON FOR VISIT (unrecogniz ed section and content) Reason Comments Other EGD/EUS D49.0 [id number] Care Teams (unrecognized sec tion and content) [...] Active Niurka Oliveira MD Attending Provider Active Can Carrier Relationship Specialty Start Date End Date Mckinley [...] Team Status: Inactive Member Role Status Dates Mciknley Alfaro , DO Primary Care Provide r, [...] BE BASED ON THE PRIMARY CLINICAL RECORDS. [facility] [employer] provides no warranty or guarantee of the accuracy or completeness of information in this document.
[2024-04-21 09:37] LABS: Alanine Aminotransferase 24 U/L (14-59); Albumin Globulin Ratio 0.9; Albumin Level 3.3 g/dL (3.4-5.0); Alkaline Phosphatase 100 U/L (46-116); Anion Gap 13.5; Aspartate Amino Transferase 20 U/L (15-37); BUN Creatinine Ratio 27.5; Bilirubin Total 0.5 mg/dL (0.2-1.0); Calcium 8.4 mg/dL (8.5-10.1); Carbon Dioxide 29.6 mmol/L (21.0-32.0); Chloride 107 mmol/L (98-107); Estimated GFR (African America >60 (>=60 mL/min/1.73m^2); Estimated GFR (Non-African Ame >60 (>=60 mL/min/1.73m^2); Globulin 3.6 g/dL; Glucose 118 mg/dL (74-106); Potassium 3.1 mmol/L (3.5-5.1); Sodium 147 mmol/L (136-145); Total Protein 6.9 g/dL (6.4-8.2)
== END 2024-04-21 08:10 | disposition home or self-care (01) ==
LOC: LAB 08:10
PROVIDERS: PCP Internal Medicine; Visit Provider Internal Medicine
DX: L40.51 Distal interphalangeal psoriatic arthropathy (principal); M81.0 Age-related osteoporosis without current pathological fracture
CPT/HCPCS: 36415; 80053; 82248; 82306; 85025; 85652

== ENCOUNTER 2024-04-21 08:24 | Outpatient (OUT) | payer MEDICARE, OTHER, SELFPAY ==
[2024-04-21 09:13] LABS: Basophils Absolute Auto 0.1 10^3/uL (0.0-0.1); Basophils Percent Auto 0.7 % (0.2-2.0); Eosinophils Absolute Auto 0.3 10^3/uL (0.0-0.7); Eosinophils Percent Auto 4.2 % (0.9-7.0); Hematocrit 37.9 % (36.0-48.0); Hemoglobin 12.3 g/dL (12.0-16.0); Immature Granulocytes Abs Auto 0.03 10^3/uL (0.00-0.03); Immature Granulocytes Pct Auto 0.4 % (0.0-0.5); Lymphocytes Absolute Auto 1.5 10^3/uL (1.2-3.8); Lymphocytes Percent Auto 22.2 % (20.5-60.0); Mean Corpuscular HGB Conc 32.5 g/dL (29.9-35.2); Mean Corpuscular Hemoglobin 29.2 pg (26.7-34.0); Mean Platelet Volume 12.2 fL (9.5-13.5); Monocytes Absolute Auto 0.9 10^3/uL (0.3-0.8); Neutrophils Absolute Auto 4.1 10^3/uL (1.4-6.5); Neutrophils Percent Auto 59.5 % (43.0-75.0); Platelet Count 252 10^3/uL (150-450); Red Blood Count 4.21 10^6/uL (4.20-5.40); Red Cell Distribution Width 13.7 % (11.0-15.0); White Blood Count 6.9 10^3/uL (4.0-11.0)
[2024-04-21 09:36] LABS: Bilirubin Direct 0.1 mg/dL (0.0-0.2)
[2024-04-21 09:44] LABS: Erythrocyte Sedimentation Rate 20 mm/hr (<=30)
== END 2024-04-21 08:25 | disposition home or self-care (01) ==
LOC: LAB 08:26
PROVIDERS: PCP Internal Medicine; Visit Provider Internal Medicine Rheumatology
DX: L40.51 Distal interphalangeal psoriatic arthropathy (principal)
CPT/HCPCS: 36415; 82248; 82565; 85025; 85652

== ENCOUNTER 2024-04-24 07:29 | Outpatient (RCR) | payer MEDICARE, OTHER, SELFPAY ==
[2024-04-24 13:35] VITALS: BP 149/83; PULSE 67; TEMP 36.6; O2SAT 98
[2024-04-24] MEDS: ZOLEDRONIC ACID/MANNITOL-WATER 5 MG/100 ML BOTTLE 400 MG IV (13:41)
--- NOTE | 2024-04-24 14:07 | PC.NURSE ---
Pt here for Reclast infusion. Lab results from 04/22/24 reviewed. Pt instructed to f/u with ordering provider on low potassium level. Reclast infusion tolerated w/o incident and pt d/c'd in stable condition.
== END 2024-05-20 23:59 | disposition home or self-care (01) ==
LOC: INF 07:29
PROVIDERS: PCP Internal Medicine; Visit Provider Internal Medicine
DX: M81.0 Age-related osteoporosis without current pathological fracture (principal)
CPT/HCPCS: 96374; J3489

== ENCOUNTER 2024-05-02 07:42 | Outpatient (OUT) | payer MEDICARE, OTHER, SELFPAY ==
--- NOTE | 2024-05-02 | US_ITS ---
Patient Name: FAHEEM MUÑOZ MR#: [id number] : 1950 Exam Date: 05/02/2024 Ordering Doctor: MARCUS GARCIA SUPPLIER RELATIONSHIP DIRECTOR-C RADIOLOGY REPORT PROCEDURE: MM TOMOSYNTHESIS DIAGNOSTIC BI, 05/02/2024, 07:54 US BREAST LT LIMITED, 05/02/2024, 08:19 COMPARISON: MM TOMOSYNTHESIS SCREENING BI, 08/09/2023. INDICATIONS: MASS OF LEFT BREAST, PAIN OF LEFT BREAST Calculator Name NCI Breast Cancer Risk Assessment Tool 5 Year Breast Cancer Risk 2.00% Lifetime Breast Cancer Risk 5.30% Personal Breast Cancer No Personal Ovarian Cancer No Treatments None Family Cancers None LOCATION: [facility] BREAST COMPOSITION: There are scattered areas of fibroglandular density. FINDINGS: DIAGNOSTIC CATEGORY 2--BENIGN FINDING: The breasts are stable in size and overall fibroglandular configuration. RIGHT BREAST: No significant suspicious finding. LEFT BREAST: No significant suspicious finding. No mammographic or ultrasound abnormality to correspond to the patient's left breast pain. Further evaluation should be based on clinical and physical exam RECOMMENDATIONS: ROUTINE MAMMOGRAM IN 12 MONTHS. PLEASE NOTE: A NORMAL MAMMOGRAM DOES NOT EXCLUDE THE POSSIBILITY OF BREAST CANCER. A CLINICALLY SUSPICIOUS PALPABLE LUMP SHOULD BE BIOPSIED. Dictated by: Jose Koch MD on 05/02/2024 at 08:32 Approved by: Jose Koch MD on 05/02/2024 at 08:35
--- OUTSIDE RECORDS SUMMARY | 2024-05-02 07:46 | XMS_ITS | CCD ---
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 Name Role Phone PHYSICIAN, DEFAULT Unavailable Unavailable [...] Unavailable Ball, DO [place] Primary Care Provider [phone] MD Tano Tsai Attending Provider Niurka Oliveira [...] Substance Allergy 10-30-19 24 Redness of Skin [facility] Dihydrofolate Reductase Inhibitors (antibiotic) (1 source) Trimethoprim Drug Allergy 10-30-19 24 Unknown Reaction [facility] Nitrofurantoin (1 source) Nitrofurantoin Drug Allergy 10-30-19 24 Comment:Macrob id [facility] Penicillins (antibiotic) (1 source) Penicillins Drug Allergy 10-30-19 24 Swelling of Lip/Tongue/Thr oat [facility] Sulfonamides (antibiotic) (1 source) Sulfamethoxazole Drug Allergy 10-30-19 24 Unknown Reaction [facility] tiZANidine (1 source) tiZANidine Drug Allergy 10-30-19 24 Insomnia [facility] (6 sources) Penicillin G Drug Allergy anaphylaxis [employer] Other (1 source) Penicillin Drug Allergy 01-23-20 15 [facility] Repository (7 sources) Adhesive Tape; Translations: [adhesive tape] Propensity to adverse reactions 02-24-20 17 Redness of Skin [facility] (8 sources) Penicillins; Translations: [Penicillins] Allergy to substance 02-24-20 17 Swelling of Lip/Tongue/Thr oat [facility] (6 sources) Adhesive Tape Drug allergy 04-19-20 16 Unknown [employer] Other (11 sources) Nitrofurantoin Drug Allergy 07-30-19 Comment:Macrob id [facility] (6 sources) Sulfamethoxazole / Trimethoprim Drug Allergy Unknown [employer] Other (6 sources) tiZANidine Comfort Pac *MUSCULOSKELETAL THERAPY AG Propensity to adverse reactions Comment:Could not sleep/rest. [employer] Other (6 sources) Substance with penicillin structure and antibacterial mechanism of action (substance) Drug allergy 04-19-20 16 Unknown [employer] Other (6 sources) Sulfamethoxazole; Translations: [sulfamethoxazole] Drug Allergy 07-30-19 24 Unknown Reaction [facility] (6 sources) tiZANidine; Translations: [tizanidine] Drug Allergy 07-30-19 24 Insomnia [facility] (6 sources) Trimethoprim; Translations: [trimethoprim] Drug Allergy 07-30-19 Unknown Reaction [facility] (1 source) Nitrofurantoin Drug Allergy 07-30-19 [facility] Repository Medications Current Medications Medication Drug [...] th every twenty-four hours Biotin Maximum Strength 62702 MCG 1 tablet Orally Once a day PRN Active take 1 tablet by romulo th every twenty-four hours Biotin Maximum Strength 66151 MCG 1 tablet Orally Once a day PRN Active Biotin Maximum Strength 82308 MCG (7 sources) take 1 tablet by romulo th once daily as needed Biotin Maximum Strength 22751 MCG 1 tablet Orally Once a day PRN Active take 1 tablet by mouth once gayla y Biotin Maximum Strength 28587 MCG 1 tablet Orally Once a day [...] 1:00am Start: 05-17-2023 take 1 capsule by [facility] every twenty-four hours Potassium Chloride ER 10 [...] injection (9 sources) Bisphosphonate Start: 07-26-2023 Zoledronic Igsk-Buxkwjmy-Nchdf (Reclast) 5 mg/100 mL piggyback Active EACH [...] September 28, 2022 12:00am Calcium Carb-Magnesium Carb,Ox (Leiud-Mag) 200 mg calcium- 100 mg Tablet,Chewable (3 [...] / neomycin 3.5 mg/ml / polymyxin b 30550 unt/ml otic solution (12 sources) Aminoglycoside Antibacterial, Polymyxin-class Antibacterial, Corticosteroid Start: 03-09-2022 Tpbdjhrr-Kzfjcrorr-RY 3.5-13219-8 4 drops into affected ear Otic Three [...] 24, 2017 12:00am October 21, 2018 8:46am [place] 7-Xzh-Cun-Fish Oil (Fish Oil) 1,000 mg (120 mg-180 mg) Capsule (7 sources) Start: 02-23-2017 End: 08-24-2017 take 1 capsule by mouth once daily [place] 9-Fum-Ffr-Fish Oil (Fish Oil) 1,000 mg (120 mg-180 mg) Capsule Discontinued 1 CAP PO Daily February 23, 2017 12:00am August 24, 2017 7:39am [place] Red (7 sources) Start: 04-02-2018 End: 09-28-2022 take 1 tablet by mouth once daily [place] Red Discontinued 1 TAB PO Daily April [...] aftercare (2 sources) Drug therapy finding; Translations: [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 [facility] Comment on above: Test Ordered: [id number] Sedimentation Rate-WestergrenSedimentation Rate-Westergren 17 mm/hr CB Reference Range: 0-40Performed at: - [facility] [id number] [place], [place] [id number] Director: Natanael Banegas PhD, Phone: [phone] Basophils Auto (Bld) [#/Vol] on 12-31-2023 Basophils (Bld) [#/Vol] 0.0 10 3/uL 0.0-0.1 [facility] Basophils/100 WBC Auto (Bld) on 12-31-2023 Basophils/100 WBC (Bld) 0.5 % 0.2-2.0 [facility] Eosinophils/100 WBC Auto (Bl d)on 12-31-2023 Eosinophils/100 WBC (Bld) 4.9 % 0.9-7.0 [facility] Erythrocyte distribution wid th Auto (RBC) [Ratio]on 12-31-2023 Erythrocyte distribution width (RBC) [Ratio] 15.1 % High 11.0-15.0 [facility] Estimated glomerular filtrat ion rate (GFR) non- Americanon 12-31-2023 GFR/1.73 sq M.predicted among non-blacks MDRD (S/P/Bld) [Vol rate/Area] 55 mL/min/{1.73_m2} Low >=60 [facility] Globulin Calc (S) [Mass/Vol] on 12-31-2023 Globulin (S) [Mass/Vol] 3.2 g/dL [facility] Hematocrit Auto (Bld) [Volum e fraction]on 12-31-2023 Hematocrit (Bld) [Volume fraction] 35.0 % Low 36.0-48.0 [facility] Hemoglobin [Mass/volume] in Bloodon 12-31-2023 Hemoglobin (Bld) [Mass/Vol] 11.4 g/dL Low 12.0-16.0 [facility] Laboratory - Chemistry and C hemistry - challengeon 12-31-2023 Albumin [Mass/Vol] 3.3 g/dL Low 3.4-5.0 [facility] ALP [Catalytic activity/Vol] 93 U/L 46-116 [facility] ALT [Catalytic activity/Vol] 31 U/L 14-59 [facility] AST [Catalytic activity/Vol] 20 U/L 15-37 [facility] Bilirubin [Mass/Vol] 0.6 mg/dL 0.2-1.0 [facility] Bilirubin.direct [Mass/Vol] 0.1 mg/dL 0.0-0.2 [facility] Creatinine [Mass/Vol] 1.00 mg/dL 0.55-1.02 [facility] GFR/1.73 sq M.predicted MDRD (S/P/Bld) [Vol rate/Area] mL/min/{1.73_m2} >=60 [facility] Protein [Mass/Vol] 6.5 g/dL 6.4-8.2 [facility] Laboratory - Hematology and Cell countson 12-31-2023 ESR (Bld) [Velocity] 19 mm/h <=30 [facility] Immature granulocytes/100 WBC (Bld) 0.4 % 0.0-0.5 [facility] Leukocytes [#/volume] correc loan for nucleated erythrocytes in Blood by Automated counon 12-31-2023 WBC corrected for nucl RBC Auto (Bld) [#/Vol] 5.7 10 3/uL 4.0-11.0 [facility] Lymphocytes Auto (Bld) [#/Vo l]on 12-31-2023 Lymphocytes (Bld) [#/Vol] 1.4 10 3/uL 1.2-3.8 [facility] Lymphocytes/100 WBC Auto (Bl d)on 12-31-2023 Lymphocytes/100 WBC (Bld) 24.7 % 20.5-60.0 [facility] MCH Auto (RBC) [Entitic mass ]on 12-31-2023 MCH (RBC) [Entitic mass] 29.2 pg 26.7-34.0 [facility] MCHC Auto (RBC) [Mass/Vol]on 12-31-2023 MCHC (RBC) [Mass/Vol] 32.6 g/dL 29.9-35.2 [facility] MCV Auto (RBC) [Entitic vol] on 12-31-2023 MCV (RBC) [Entitic vol] 89.5 fL 81.0-99.0 [facility] Monocytes Auto (Bld) [#/Vol] on 12-31-2023 Monocytes (Bld) [#/Vol] 0.6 10 3/uL 0.3-0.8 [facility] Monocytes/100 WBC Auto (Bld) on 12-31-2023 Monocytes/100 WBC (Bld) 10.4 % 1.7-12.0 [facility] Neutrophils Auto (Bld) [#/Vo l]on 12-31-2023 Neutrophils (Bld) [#/Vol] 3.4 10 3/uL 1.4-6.5 [facility] Neutrophils/100 WBC Auto (Bl d)on 12-31-2023 Neutrophils/100 WBC (Bld) 59.1 % 43.0-75.0 [facility] No Panel Informationon 12-30 Eosinophils # (Auto) 0.3 10 3/uL 0.0-0.7 [facility] Immature Granulocyte # (Auto) 0.02 10 3/uL 0.00-0.03 [facility] Platelet mean volume Auto (B ld) [Entitic vol]on 12-31-2023 Platelet mean volume (Bld) [Entitic vol] 11.7 fL 9.5-13.5 [facility] Platelets Auto (Bld) [#/Vol] on 12-31-2023 Platelets (Bld) [#/Vol] 228 10 3/uL 150-450 [facility] RBC Auto (Bld) [#/Vol]on RBC (Bld) [#/Vol] 3.91 10 6/uL Low 4.20-5.40 [facility] Serum or plasma albumin/glob ulin mass ratioon 12-31-2023 Albumin/Globulin [Mass ratio] 1.0 {ratio} [facility] Basophils Auto (Bld) [#/Vol] on 12-03-2023 Basophils (Bld) [#/Vol] 0.0 10 3/uL 0.0-0.1 [facility] Basophils/100 WBC Auto (Bld) on 12-03-2023 Basophils/100 WBC (Bld) 0.4 % 0.2-2.0 [facility] Eosinophils/100 WBC Auto (Bl d)on 12-03-2023 Eosinophils/100 WBC (Bld) 3.2 % 0.9-7.0 [facility] Erythrocyte distribution wid th Auto (RBC) [Ratio]on 12-03-2023 Erythrocyte distribution width (RBC) [Ratio] 14.5 % 11.0-15.0 [facility] Estimated glomerular filtrat ion rate (GFR) non- Americanon 12-03-2023 GFR/1.73 sq M.predicted among non-blacks MDRD (S/P/Bld) [Vol rate/Area] 59 mL/min/{1.73_m2} Low >=60 [facility] Globulin Calc (S) [Mass/Vol] on 12-03-2023 Globulin (S) [Mass/Vol] 3.6 g/dL [facility] Hematocrit Auto (Bld) [Volum e fraction]on 12-03-2023 Hematocrit (Bld) [Volume fraction] 37.9 % 36.0-48.0 [facility] Hemoglobin [Mass/volume] in Bloodon 12-03-2023 Hemoglobin (Bld) [Mass/Vol] 12.3 g/dL 12.0-16.0 [facility] Laboratory - Chemistry and C hemistry - challengeon 12-03-2023 Albumin [Mass/Vol] 3.4 g/dL 3.4-5.0 [facility] ALP [Catalytic activity/Vol] 95 U/L 46-116 [facility] ALT [Catalytic activity/Vol] 27 U/L 14-59 [facility] AST [Catalytic activity/Vol] 23 U/L 15-37 [facility] Bilirubin [Mass/Vol] 0.5 mg/dL 0.2-1.0 [facility] Bilirubin.direct [Mass/Vol] 0.1 mg/dL 0.0-0.2 [facility] Creatinine [Mass/Vol] 0.94 mg/dL 0.55-1.02 [facility] GFR/1.73 sq M.predicted MDRD (S/P/Bld) [Vol rate/Area] mL/min/{1.73_m2} >=60 [facility] Protein [Mass/Vol] 7.0 g/dL 6.4-8.2 [facility] Laboratory - Hematology and Cell countson 12-03-2023 ESR (Bld) [Velocity] 22 mm/h <=30 [facility] Immature granulocytes/100 WBC (Bld) 0.1 % 0.0-0.5 [facility] Leukocytes [#/volume] correc loan for nucleated erythrocytes in Blood by Automated counon 12-03-2023 WBC corrected for nucl RBC Auto (Bld) [#/Vol] 7.5 10 3/uL 4.0-11.0 [facility] Lymphocytes Auto (Bld) [#/Vo l]on 12-03-2023 Lymphocytes (Bld) [#/Vol] 1.6 10 3/uL 1.2-3.8 [facility] Lymphocytes/100 WBC Auto (Bl d)on 12-03-2023 Lymphocytes/100 WBC (Bld) 21.7 % 20.5-60.0 [facility] MCH Auto (RBC) [Entitic mass ]on 12-03-2023 MCH (RBC) [Entitic mass] 28.9 pg 26.7-34.0 [facility] MCHC Auto (RBC) [Mass/Vol]on 12-03-2023 MCHC (RBC) [Mass/Vol] 32.5 g/dL 29.9-35.2 [facility] MCV Auto (RBC) [Entitic vol] on 12-03-2023 MCV (RBC) [Entitic vol] 89.0 fL 81.0-99.0 [facility] Monocytes Auto (Bld) [#/Vol] on 12-03-2023 Monocytes (Bld) [#/Vol] 0.7 10 3/uL 0.3-0.8 [facility] Monocytes/100 WBC Auto (Bld) on 12-03-2023 Monocytes/100 WBC (Bld) 9.1 % 1.7-12.0 [facility] Neutrophils Auto (Bld) [#/Vo l]on 12-03-2023 Neutrophils (Bld) [#/Vol] 4.9 10 3/uL 1.4-6.5 [facility] Neutrophils/100 WBC Auto (Bl d)on 12-03-2023 Neutrophils/100 WBC (Bld) 65.5 % 43.0-75.0 [facility] No Panel Informationon 12-02 Eosinophils # (Auto) 0.2 10 3/uL 0.0-0.7 [facility] Immature Granulocyte # (Auto) 0.01 10 3/uL 0.00-0.03 [facility] Platelet mean volume Auto (B ld) [Entitic vol]on 12-03-2023 Platelet mean volume (Bld) [Entitic vol] 11.6 fL 9.5-13.5 [facility] Platelets Auto (Bld) [#/Vol] on 12-03-2023 Platelets (Bld) [#/Vol] 250 10 3/uL 150-450 [facility] RBC Auto (Bld) [#/Vol]on RBC (Bld) [#/Vol] 4.26 10 6/uL 4.20-5.40 [facility] Serum or plasma albumin/glob ulin mass ratioon 12-03-2023 Albumin/Globulin [Mass ratio] 0.9 {ratio} [facility] Basophils Auto (Bld) [#/Vol] on 11-19-2023 Basophils (Bld) [#/Vol] 0.0 10 3/uL 0.0-0.1 [facility] Basophils/100 WBC Auto (Bld) on 11-19-2023 Basophils/100 WBC (Bld) 0.3 % 0.2-2.0 [facility] Eosinophils/100 WBC Auto (Bl d)on 11-19-2023 Eosinophils/100 WBC (Bld) 1.7 % 0.9-7.0 [facility] Erythrocyte distribution wid th Auto (RBC) [Ratio]on 11-19-2023 Erythrocyte distribution width (RBC) [Ratio] 14.0 % 11.0-15.0 [facility] Estimated glomerular filtrat ion rate (GFR) non- Americanon 11-19-2023 GFR/1.73 sq M.predicted among non-blacks MDRD (S/P/Bld) [Vol rate/Area] 59 mL/min/{1.73_m2} Low >=60 [facility] Globulin Calc (S) [Mass/Vol] on 11-19-2023 Globulin (S) [Mass/Vol] 3.8 g/dL [facility] Hematocrit Auto (Bld) [Volum e fraction]on 11-19-2023 Hematocrit (Bld) [Volume fraction] 38.3 % 36.0-48.0 [facility] Hemoglobin [Mass/volume] in Bloodon 11-19-2023 Hemoglobin (Bld) [Mass/Vol] 12.2 g/dL 12.0-16.0 [facility] Laboratory - Chemistry and C hemistry - challengeon 11-19-2023 Albumin [Mass/Vol] 3.7 g/dL 3.4-5.0 [facility] ALP [Catalytic activity/Vol] 104 U/L 46-116 [facility] ALT [Catalytic activity/Vol] 24 U/L 14-59 [facility] AST [Catalytic activity/Vol] 17 U/L 15-37 [facility] Bilirubin [Mass/Vol] 0.4 mg/dL 0.2-1.0 [facility] Bilirubin.direct [Mass/Vol] 0.1 mg/dL 0.0-0.2 [facility] Creatinine [Mass/Vol] 0.94 mg/dL 0.55-1.02 [facility] GFR/1.73 sq M.predicted MDRD (S/P/Bld) [Vol rate/Area] mL/min/{1.73_m2} >=60 [facility] Protein [Mass/Vol] 7.5 g/dL 6.4-8.2 [facility] Laboratory - Hematology and Cell countson 11-19-2023 ESR (Bld) [Velocity] 22 mm/h <=30 [facility] Immature granulocytes/100 WBC (Bld) 0.2 % 0.0-0.5 [facility] Leukocytes [#/volume] correc loan for nucleated erythrocytes in Blood by Automated counon 11-19-2023 WBC corrected for nucl RBC Auto (Bld) [#/Vol] 9.3 10 3/uL 4.0-11.0 [facility] Lymphocytes Auto (Bld) [#/Vo l]on 11-19-2023 Lymphocytes (Bld) [#/Vol] 1.4 10 3/uL 1.2-3.8 [facility] Lymphocytes/100 WBC Auto (Bl d)on 11-19-2023 Lymphocytes/100 WBC (Bld) 15.3 % Low 20.5-60.0 [facility] MCH Auto (RBC) [Entitic mass ]on 11-19-2023 MCH (RBC) [Entitic mass] 27.7 pg 26.7-34.0 [facility] MCHC Auto (RBC) [Mass/Vol]on 11-19-2023 MCHC (RBC) [Mass/Vol] 31.9 g/dL 29.9-35.2 [facility] MCV Auto (RBC) [Entitic vol] on 11-19-2023 MCV (RBC) [Entitic vol] 87.0 fL 81.0-99.0 [facility] Monocytes Auto (Bld) [#/Vol] on 11-19-2023 Monocytes (Bld) [#/Vol] 0.7 10 3/uL 0.3-0.8 [facility] Monocytes/100 WBC Auto (Bld) on 11-19-2023 Monocytes/100 WBC (Bld) 7.2 % 1.7-12.0 [facility] Neutrophils Auto (Bld) [#/Vo l]on 11-19-2023 Neutrophils (Bld) [#/Vol] 7.0 10 3/uL High 1.4-6.5 [facility] Neutrophils/100 WBC Auto (Bl d)on 11-19-2023 Neutrophils/100 WBC (Bld) 75.3 % High 43.0-75.0 [facility] No Panel Informationon 11-18 Eosinophils # (Auto) 0.2 10 3/uL 0.0-0.7 [facility] Immature Granulocyte # (Auto) 0.02 10 3/uL 0.00-0.03 [facility] Platelet mean volume Auto (B ld) [Entitic vol]on 11-19-2023 Platelet mean volume (Bld) [Entitic vol] 11.4 fL 9.5-13.5 [facility] Platelets Auto (Bld) [#/Vol] on 11-19-2023 Platelets (Bld) [#/Vol] 296 10 3/uL 150-450 [facility] RBC Auto (Bld) [#/Vol]on RBC (Bld) [#/Vol] 4.40 10 6/uL 4.20-5.40 [facility] Serum or plasma albumin/glob ulin mass ratioon 11-19-2023 Albumin/Globulin [Mass ratio] 1.0 {ratio} [facility] XR chest 2V*on 09-13-2023 XR chest 2V* [facility] Main [address] [address] XRay Report Signed Patient: Lizzy Welsh MR#: [id number] : 1950 Acct:[id number] Age/Sex: 73 / F ADM Date: 09/13/23 Loc: ICXD Room: Type: [facility] Attending Dr: Tano Tsai MD [...] Anny Powell M.D.09/13/2023 5:13 PM Dictation Location: [place] [address] Transcribed By: [facility] 09/13/231712 Dictated By: Anny Powell II, MD 09/13/231711 Signed By: 09/13/231712 Normal [facility] XR hand BI 2Von 09-13-2023 XR hand BI 2V [facility] Main [address] [address] XRay Report Signed Patient: Lizzy Welsh MR#: [id number] : 1950 Acct:[id number] Age/Sex: 73 / F ADM Date: 09/13/23 Loc: ICXD Room: Type: [facility] Attending Dr: Tano Tsai MD [...] Anny Powell M.D.09/13/2023 5:21 PM Dictation Location: [place] [address] Transcribed By: [facility] 09/13/23 172 Dictated By: Anny Powell II, MD 09/13/23 1719 Signed By: 09/13/23 1721 Normal [facility] Alanine aminotransferase [En zymatic activity/volume] in Serum or PlasmaOrdered By: Tano Tsai on 09-12-2023 ALT [Catalytic activity/Vol] 18 U/L 7-52 [facility] Albumin [Mass/volume] in Ser um or Plasma by Bromocresol green (BCG) dye binding methoOrdered By: Tano Tsai on 09-12-2023 Albumin BCG dye [Mass/Vol] 4.2 g/dL 3.5-5.7 [facility] Alkaline phosphatase [Enzyma tic activity/volume] in Serum or PlasmaOrdered By: Tano Tsai on 09-12-2023 ALP [Catalytic activity/Vol] 82 U/L 34-104 [facility] Aspartate aminotransferase [ Enzymatic activity/volume] in Serum or PlasmaOrdered By: Tano Tsai on 09-12-2023 AST [Catalytic activity/Vol] 16 U/L 13-39 [facility] Basophils Auto (Bld) [#/Vol] Ordered By: Tano Tsai on 09-12-2023 Basophils (Bld) [#/Vol] 0.1 10*3/uL 0.0-0.2 [facility] Basophils/100 WBC Auto (Bld) Ordered By: Tano Tsai on 09-12-2023 Basophils/100 WBC (Bld) 0.7 % . [facility] Bilirubin.total [Mass/volume ] in Serum or PlasmaOrdered By: Tano Tsai on 09-12-2023 Bilirubin [Mass/Vol] 0.5 mg/dL 0.3-1.0 [facility] C reactive protein [Mass/vol ume] in Serum or PlasmaOrdered By: Tano Tsai on 09-12-2023 CRP [Mass/Vol] 2.1 mg/dL 0.0-0.5 [facility] C-Reactive Proteinon 024 C-Reactive Protein 2.1 mg/dL High 0.0-0.5 [facility] Comment on above: Result Comment: PERF ORMED BY: [place] [address] PATHOLOGIST ACCESS CONTROL SPECIALIST VICENTE MONTEZ M.D. Performed By: #### C MP, ESR, PTH, CBC, CRP #### [facility] [address] [place] [address] [place] #### HBCAB, HBSAB, HBSAG, HCV RX PCR #### [facility] , Calcium [Mass/volume] in Ser um or PlasmaOrdered By: Tano Tsai on 09-12-2023 Calcium [Mass/Vol] 9.9 mg/dL 8.6-10.3 [facility] Carbon dioxide, total [Moles /volume] in Serum or PlasmaOrdered By: Tano Tsai on 09-12-2023 CO2 [Moles/Vol] 31.5 mmol/L 21.0-31.0 [facility] Chloride [Moles/volume] in S concha or PlasmaOrdered By: Tano Tsai on 09-12-2023 Chloride [Moles/Vol] 105 mmol/L 98-107 [facility] Complete Blood Count Auto Di ffon 09-12-2023 Basophils (Bld) [#/Vol] 0.1 10*3/uL Normal 0.0-0.2 [facility] Comment on above: Performed By: #### C MP, ESR, PTH, CBC, CRP #### [address] #### HBCAB, HBSAB, HBSAG, HCV RX PCR #### [facility] , Basophils/100 WBC (Bld) 0.7 % Normal . [facility] Comment on above: Performed By: #### C MP, ESR, PTH, CBC, CRP #### [address] #### HBCAB, HBSAB, HBSAG, HCV RX PCR #### [facility] , Eosinophils (Bld) [#/Vol] 0.3 10*3/uL Normal 0.0-0.45 [facility] Comment on above: Performed By: #### C MP, ESR, PTH, CBC, CRP #### [place] [address] [place] #### HBCAB, HBSAB, HBSAG, HCV RX PCR #### [facility] , Eosinophils/100 WBC (Bld) 3.3 % Normal . [facility] Comment on above: Performed By: #### C MP, ESR, PTH, CBC, CRP #### [place] [address] [place] #### HBCAB, HBSAB, HBSAG, HCV RX PCR #### [facility] , Erythrocyte distribution width (RBC) [Ratio] 14.8 % Normal 11.9-15.3 [facility] Comment on above: Performed By: #### C MP, ESR, PTH, CBC, CRP #### [address] #### HBCAB, HBSAB, HBSAG, HCV RX PCR #### [facility] , Hematocrit (Bld) [Volume fraction] 40.9 % Normal 34.0-46.4 [facility] Comment on above: Performed By: #### C MP, ESR, PTH, CBC, CRP #### [address] #### HBCAB, HBSAB, HBSAG, HCV RX PCR #### [facility] , Hemoglobin (Bld) [Mass/Vol] 13.2 g/dL Normal 11.8-15.4 [facility] Comment on above: Performed By: #### C MP, ESR, PTH, CBC, CRP #### [address] #### HBCAB, HBSAB, HBSAG, HCV RX PCR #### [facility] , Lymphocytes (Bld) [#/Vol] 1.9 10*3/uL Normal 1.00-4.8 [facility] Comment on above: Performed By: #### C MP, ESR, PTH, CBC, CRP #### [address] #### HBCAB, HBSAB, HBSAG, HCV RX PCR #### [facility] , Lymphocytes/100 WBC (Bld) 21.1 % Normal . [facility] Comment on above: Performed By: #### C MP, ESR, PTH, CBC, CRP #### [address] #### HBCAB, HBSAB, HBSAG, HCV RX PCR #### [facility] , MCH (RBC) [Entitic mass] 27.6 pg Normal 24.7-34.3 [facility] Comment on above: Performed By: #### C MP, ESR, PTH, CBC, CRP #### [address] #### HBCAB, HBSAB, HBSAG, HCV RX PCR #### [facility] , MCV (RBC) [Entitic vol] 85.2 fL Normal 80-100 [facility] Comment on above: Performed By: #### C MP, ESR, PTH, CBC, CRP #### [address] #### HBCAB, HBSAB, HBSAG, HCV RX PCR #### [facility] , Mean Corpuscular HGB Conc 32.4 g/dL Normal 32.0-35.0 [facility] Comment on above: Performed By: #### C MP, ESR, PTH, CBC, CRP #### [address] #### HBCAB, HBSAB, HBSAG, HCV RX PCR #### [facility] , Monocytes (Bld) [#/Vol] 1.0 10*3/uL High 0.0-0.8 [facility] Comment on above: Performed By: #### C MP, ESR, PTH, CBC, CRP #### [address] #### HBCAB, HBSAB, HBSAG, HCV RX PCR #### [facility] , Monocytes/100 WBC (Bld) 10.5 % Normal . [facility] Comment on above: Performed By: #### C MP, ESR, PTH, CBC, CRP #### [place] [address] [place] #### HBCAB, HBSAB, HBSAG, HCV RX PCR #### [facility] , Neutrophils (Bld) [#/Vol] 5.9 10*3/uL Normal 1.8-7.7 [facility] Comment on above: Performed By: #### C MP, ESR, PTH, CBC, CRP #### [address] #### HBCAB, HBSAB, HBSAG, HCV RX PCR #### [facility] , Neutrophils/100 WBC (Bld) 64.4 % Normal . [facility] Comment on above: Performed By: #### C MP, ESR, PTH, CBC, CRP #### [place] [address] [place] #### HBCAB, HBSAB, HBSAG, HCV RX PCR #### [facility] , NRBC% 0.2 /100{WBC} Normal 0-0.5 [facility] Comment on above: Performed By: #### C MP, ESR, PTH, CBC, CRP #### [address] #### HBCAB, HBSAB, HBSAG, HCV RX PCR #### [facility] , Platelet mean volume (Bld) [Entitic vol] 10.3 fL Normal 6.3-10.7 [facility] Comment on above: Performed By: #### C MP, ESR, PTH, CBC, CRP #### [address] #### HBCAB, HBSAB, HBSAG, HCV RX PCR #### [facility] , Platelets (Bld) [#/Vol] 253 10*3/uL Normal 150-450 [facility] Comment on above: Performed By: #### C MP, ESR, PTH, CBC, CRP #### [place] [address] [place] #### HBCAB, HBSAB, HBSAG, HCV RX PCR #### [facility] , RBC (Bld) [#/Vol] 4.80 10*6/uL Normal 3.60-5.00 [facility] Comment on above: Performed By: #### C MP, ESR, PTH, CBC, CRP #### [place] [address] [place] #### HBCAB, HBSAB, HBSAG, HCV RX PCR #### [facility] , WBC (Bld) [#/Vol] 9.2 10*3/uL Normal 3.8-11.6 [facility] Comment on above: Performed By: #### C MP, ESR, PTH, CBC, CRP #### [address] #### HBCAB, HBSAB, HBSAG, HCV RX PCR #### [facility] , Comprehensive Metabolic Pane mayur 09-12-2023 Albumin [Mass/Vol] 4.2 g/dL Normal 3.5-5.7 [facility] Comment on above: Performed By: #### C MP, ESR, PTH, CBC, CRP #### [address] #### HBCAB, HBSAB, HBSAG, HCV RX PCR #### [facility] , Albumin/Globulin [Mass ratio] 1.4 {ratio} Normal [facility] Comment on above: Performed By: #### C MP, ESR, PTH, CBC, CRP #### [address] #### HBCAB, HBSAB, HBSAG, HCV RX PCR #### [facility] , ALP [Catalytic activity/Vol] 82 U/L Normal 34-104 [facility] Comment on above: Performed By: #### C MP, ESR, PTH, CBC, CRP #### [address] #### HBCAB, HBSAB, HBSAG, HCV RX PCR #### [facility] , ALT [Catalytic activity/Vol] 18 U/L Normal 7-52 [facility] Comment on above: Performed By: #### C MP, ESR, PTH, CBC, CRP #### [address] #### HBCAB, HBSAB, HBSAG, HCV RX PCR #### [facility] , Anion gap [Moles/Vol] 9.7 mmol/L Normal 6.0-15.0 [facility] Comment on above: Performed By: #### C MP, ESR, PTH, CBC, CRP #### [address] #### HBCAB, HBSAB, HBSAG, HCV RX PCR #### [facility] , AST [Catalytic activity/Vol] 16 U/L Normal 13-39 [facility] Comment on above: Performed By: #### C MP, ESR, PTH, CBC, CRP #### [address] #### HBCAB, HBSAB, HBSAG, HCV RX PCR #### [facility] , Bilirubin [Mass/Vol] 0.5 mg/dL Normal 0.3-1.0 [facility] Comment on above: Performed By: #### C MP, ESR, PTH, CBC, CRP #### [address] #### HBCAB, HBSAB, HBSAG, HCV RX PCR #### [facility] , Calcium [Mass/Vol] 9.9 mg/dL Normal 8.6-10.3 [facility] Comment on above: Performed By: #### C MP, ESR, PTH, CBC, CRP #### [address] #### HBCAB, HBSAB, HBSAG, HCV RX PCR #### [facility] , Chloride [Moles/Vol] 105 mmol/L Normal 98-107 [facility] Comment on above: Performed By: #### C MP, ESR, PTH, CBC, CRP #### [address] #### HBCAB, HBSAB, HBSAG, HCV RX PCR #### [facility] , CO2 [Moles/Vol] 31.5 mmol/L High 21.0-31.0 [facility] Comment on above: Performed By: #### C MP, ESR, PTH, CBC, CRP #### [place] [address] [place] #### HBCAB, HBSAB, HBSAG, HCV RX PCR #### [facility] , Creatinine [Mass/Vol] 0.74 mg/dL Normal 0.60-1.20 [facility] Comment on above: Performed By: #### C MP, ESR, PTH, CBC, CRP #### [address] #### HBCAB, HBSAB, HBSAG, HCV RX PCR #### [facility] , GFR/1.73 sq M.predicted MDRD (S/P/Bld) [Vol rate/Area] mL/min/{1.73_m2} Normal [facility] Comment on above: Performed By: #### C MP, ESR, PTH, CBC, CRP #### [address] #### HBCAB, HBSAB, HBSAG, HCV RX PCR #### [facility] , Globulin (S) [Mass/Vol] 2.9 g/dL Normal [facility] Comment on above: Performed By: #### C MP, ESR, PTH, CBC, CRP #### [address] #### HBCAB, HBSAB, HBSAG, HCV RX PCR #### [facility] , Glucose [Mass/Vol] 99 mg/dL Normal 70-100 [facility] Comment on above: Result Comment: [place] Glucose Reference Range is dependent on time and content of last meal. Glucose of more than 200 mg/dL in a nonstressed, ambulatory subject supports the diagnosis of Diabetes Mellitus. ADA recommended reference range Performed By: #### C MP, ESR, PTH, CBC, CRP #### [place] [address] [place] #### HBCAB, HBSAB, HBSAG, HCV RX PCR #### [facility] , Potassium [Moles/Vol] 4.2 mmol/L Normal 3.5-5.1 [facility] Comment on above: Performed By: #### C MP, ESR, PTH, CBC, CRP #### [place] [address] [place] #### HBCAB, HBSAB, HBSAG, HCV RX PCR #### [facility] , Protein [Mass/Vol] 7.1 g/dL Normal 6.4-8.9 [facility] Comment on above: Performed By: #### C MP, ESR, PTH, CBC, CRP #### [facility] [address] [place] [address] [place] #### HBCAB, HBSAB, HBSAG, HCV RX PCR #### [facility] , Sodium [Moles/Vol] 142 mmol/L Normal 136-145 [facility] Comment on above: Performed By: #### C MP, ESR, PTH, CBC, CRP #### [place] [address] [place] #### HBCAB, HBSAB, HBSAG, HCV RX PCR #### [facility] , Urea nitrogen [Mass/Vol] 28 mg/dL High 7-25 [facility] Comment on above: Performed By: #### C MP, ESR, PTH, CBC, CRP #### [facility] [address] [place] [address] [place] #### HBCAB, HBSAB, HBSAG, HCV RX PCR #### [facility] , Creatinine [Mass/volume] in Serum or PlasmaOrdered By: Tano Tsai on 09-12-2023 Creatinine [Mass/Vol] 0.74 mg/dL 0.60-1.20 [facility] Eosinophils Auto (Bld) [#/Vo l]Ordered By: Tano Tsai on 09-12-2023 Eosinophils (Bld) [#/Vol] 0.3 10*3/uL 0.0-0.45 [facility] Eosinophils/100 WBC Auto (Bl d)Ordered By: Tano Tsai on 09-12-2023 Eosinophils/100 WBC (Bld) 3.3 % . [facility] Erythrocyte Sedimentation Ra lilo 09-12-2023 ESR (Bld) [Velocity] 26 mm/h Normal 0-29 [facility] Comment on above: Result Comment: PERF ORMED BY: [facility] [address] [place] [address] PATHOLOGIST ACCESS CONTROL SPECIALIST VICENTE MONTEZ M.D. Performed By: #### C MP, ESR, PTH, CBC, CRP #### [facility] [address] [place] [address] [place] #### HBCAB, HBSAB, HBSAG, HCV RX PCR #### [facility] , Erythrocyte distribution wid th Auto (RBC) [Ratio]Ordered By: Tano Tsai on 09-12-2023 Erythrocyte distribution width (RBC) [Ratio] 14.8 % 11.9-15.3 [facility] Erythrocyte sedimentation ra te by Photometric methodOrdered By: Tano Tsai on 09-12-2023 ESR Photometric method (Bld) [Velocity] 26 mm/hr 0-29 [facility] Globulin Calc (S) [Mass/Vol] Ordered By: Tano Tsai on 09-12-2023 Globulin (S) [Mass/Vol] 2.9 g/dL [facility] Glucose [Mass/volume] in Ser um or PlasmaOrdered By: Tano Tsai on 09-12-2023 Glucose [Mass/Vol] 99 mg/dL 70-100 [facility] Comment on above: ADA recommended refe rence rangeRandom Glucose Reference Range is dependent on time and content of last meal. Glucose of more than 200 mg/dL in a nonstressed, ambulatory subject supports the diagnosis of Diabetes Mellitus. Hematocrit Auto (Bld) [Volum e fraction]Ordered By: Tano Tsai on 09-12-2023 Hematocrit (Bld) [Volume fraction] 40.9 % 34.0-46.4 [facility] Hemoglobin [Mass/volume] in BloodOrdered By: Tano Tsai on 09-12-2023 Hemoglobin (Bld) [Mass/Vol] 13.2 g/dL 11.8-15.4 [facility] Hep C Ab wRfx to Qnt PCRon 0 09-12-2023 Hepatitis C Virus Antibody Non-Reactive Normal Non Reactive [facility] Comment on above: Performed By: #### C MP, ESR, PTH, CBC, CRP #### [facility] [address] #### HBCAB, HBSAB, HBSAG, HCV RX PCR #### [facility] , Interpretation Hepatitis C Normal . [facility] Comment on above: Result Comment: Not infected with HCV unless early or acute infection is suspected (which may be delayed in an immunocompromised individual), or other evidence exists to indicate HCV infection. Performed By: #### C MP, ESR, PTH, CBC, CRP #### [address] #### HBCAB, HBSAB, HBSAG, HCV RX PCR #### [facility] , Hepatitis B Core Antibodyon 09-12-2023 Hepatitis B Core Antibody Negative Normal Negative [facility] Comment on above: Result Comment: Perf ormed at: - [facility] [place] [id number] Master Ship: Natanael Banegas PhD, Phone: [phone] Performed By: #### C MP, ESR, PTH, CBC, CRP ####[address]#### HBCAB, HBSAB, HBSAG, HCV RX PCR ####[facility] , Hepatitis B Surface Antibody on 09-12-2023 Hepatitis B Surface Antibody Non-Reactive Normal . [facility] Comment on above: Result Comment: Non Reactive: Inconsistent with immunity, less than 10 mIU/mL Reactive: Consistent with immunity, greater than 9.9 mIU/mL Performed By: #### C MP, ESR, PTH, CBC, CRP #### [place] [address] [place] #### HBCAB, HBSAB, HBSAG, HCV RX PCR #### [facility] , Hepatitis B Surface Antigeno n 09-12-2023 HBsAg Screen Negative Normal Negative [facility] Comment on above: Result Comment: PERF ORMED BY: [facility] [address] [place] [id number] PATHOLOGIST ACCESS CONTROL SPECIALIST VICENTE MONTEZ M.D. Performed By: #### C MP, ESR, PTH, CBC, CRP ####[facility] [address]#### HBCAB, HBSAB, HBSAG, HCV RX PCR ####[facility] , Hepatitis B virus surface Ab [Presence] in SerumOrdered By: Tano Tsai on 09-12-2023 HBV surface Ab Ql (S) Non-Reactive . [facility] Comment on above: Non Reactive: Incons istent with immunity, less than 10 mIU/mL Reactive: Consistent with immunity, greater than 9.9 mIU/mL Hepatitis B virus surface Ag [Presence] in Serum or Plasma by ImmunoassayOrdered By: Tano Tsai on 09-12-2023 HBV surface Ag IA Ql Negative Negative [facility] Hepatitis C virus IgG Ab [Pr esence] in Serum or Plasma by ImmunoassayOrdered By: Tano Tsai on 09-12-2023 HCV IgG IA Ql Non-Reactive Non Reactive [facility] Leukocytes [#/volume] correc loan for nucleated erythrocytes in Blood by Automated counOrdered By: Tano Tsai on 09-12-2023 WBC corrected for nucl RBC Auto (Bld) [#/Vol] 9.2 10*3/uL 3.8-11.6 [facility] Lymphocytes Auto (Bld) [#/Vo l]Ordered By: Tano Tsai on 09-12-2023 Lymphocytes (Bld) [#/Vol] 1.9 10*3/uL 1.00-4.8 [facility] Lymphocytes/100 WBC Auto (Bl d)Ordered By: Tano Tsai on 09-12-2023 Lymphocytes/100 WBC (Bld) 21.1 % . [facility] MCH Auto (RBC) [Entitic mass ]Ordered By: Tano Tsai on 09-12-2023 MCH (RBC) [Entitic mass] 27.6 pg 24.7-34.3 [facility] MCHC Auto (RBC) [Mass/Vol]Or dered By: Tano Tsai on 09-12-2023 MCHC (RBC) [Mass/Vol] 32.4 g/dL 32.0-35.0 [facility] MCV Auto (RBC) [Entitic vol] Ordered By: Tano Tsai on 09-12-2023 MCV (RBC) [Entitic vol] 85.2 fL 80-100 [facility] Monocytes Auto (Bld) [#/Vol] Ordered By: Tano Tsai on 09-12-2023 Monocytes (Bld) [#/Vol] 1.0 10*3/uL 0.0-0.8 [facility] Monocytes/100 WBC Auto (Bld) Ordered By: Tano Tsai on 09-12-2023 Monocytes/100 WBC (Bld) 10.5 % . [facility] Neutrophils Auto (Bld) [#/Vo l]Ordered By: Tano Tsai on 09-12-2023 Neutrophils (Bld) [#/Vol] 5.9 10*3/uL 1.8-7.7 [facility] Neutrophils/100 WBC Auto (Bl d)Ordered By: Tano Tsai on 09-12-2023 Neutrophils/100 WBC (Bld) 64.4 % . [facility] No Panel InformationOrdered By: Tano Tsai on 09-12-2023 Estimated GFR (CKD-EPI) > 60.0 mL/Min [facility] Hepatitis B Core Total Antibody Negative Negative [facility] Comment on above: Performed at: - [address] [id number] Director: Natanael Banegas PhD, Phone: [phone] Hepatitis C Interpretation See comment . [facility] Comment on above: Not infected with HC V unless early or acute infection issuspected (which may be delayed in an immunocompromisedindividual), or other evidence exists to indicate HCVinfection. Pharmacy Creatinine Clearance (Chem N/A [facility] Nucleated erythrocytes [Pres ence] in Blood by Automated countOrdered By: Tano Tsai on 09-12-2023 Nucleated RBC Auto Ql (Bld) 0.2 /100{WBC} 0-0.5 [facility] Parathyrin.intact [Mass/volu me] in Serum or PlasmaOrdered By: Tano Tsai on 09-12-2023 Parathyrin.intact [Mass/Vol] 34.2 pg/mL [facility] Parathyroid Hormone Intacton 09-12-2023 Parathyroid Hormone Intact 34.2 pg/mL Normal [facility] Comment on above: Result Comment: PERF ORMED BY: [place] [address] PATHOLOGIST ACCESS CONTROL SPECIALIST VICENTE MONTEZ M.D. Performed By: #### C MP, ESR, PTH, CBC, CRP #### [place] [address] [place] #### HBCAB, HBSAB, HBSAG, HCV RX PCR #### [facility] , Platelet mean volume Auto (B ld) [Entitic vol]Ordered By: Tano Tsai on 09-12-2023 Platelet mean volume (Bld) [Entitic vol] 10.3 fL 6.3-10.7 [facility] Platelets Auto (Bld) [#/Vol] Ordered By: Tano Tsai on 09-12-2023 Platelets (Bld) [#/Vol] 253 10*3/uL 150-450 [facility] Potassium [Moles/volume] in Serum or PlasmaOrdered By: Tano Tsai on 09-12-2023 Potassium [Moles/Vol] 4.2 mmol/L 3.5-5.1 [facility] Protein [Mass/volume] in Ser um or PlasmaOrdered By: Tano Tsai on 09-12-2023 Protein [Mass/Vol] 7.1 g/dL 6.4-8.9 [facility] RBC Auto (Bld) [#/Vol]Ordere d By: Tano Tsai on 09-12-2023 RBC (Bld) [#/Vol] 4.80 10*6/uL 3.60-5.00 [facility] Serum or plasma albumin/glob ulin mass ratioOrdered By: Tano Tsai on 09-12-2023 Albumin/Globulin [Mass ratio] 1.4 {ratio} [facility] Serum or plasma anion gap de terminationOrdered By: Tano Tsai on 09-12-2023 Anion gap [Moles/Vol] 9.7 mmol/L 6.0-15.0 [facility] Sodium [Moles/volume] in Ser um or PlasmaOrdered By: Tano Tsai on 09-12-2023 Sodium [Moles/Vol] 142 mmol/L 136-145 [facility] Urea nitrogen [Mass/volume] in Serum or PlasmaOrdered By: Tano Tsai on 09-12-2023 Urea nitrogen [Mass/Vol] 28 mg/dL 7-25 [facility] WBC Auto (Bld) [#/Vol]Ordere d By: Tano Tsai on 09-12-2023 WBC (Bld) [#/Vol] 9.2 10*3/uL 3.8-11.6 [facility] Basophils Auto (Bld) [#/Vol] on 08-03-2023 Basophils (Bld) [#/Vol] 0.1 10 3/uL 0.0-0.1 [facility] Basophils/100 WBC Auto (Bld) on 08-03-2023 Basophils/100 WBC (Bld) 0.6 % 0.2-2.0 [facility] Eosinophils/100 WBC Auto (Bl d)on 08-03-2023 Eosinophils/100 WBC (Bld) 3.2 % 0.9-7.0 [facility] Erythrocyte distribution wid th Auto (RBC) [Ratio]on 08-03-2023 Erythrocyte distribution width (RBC) [Ratio] 13.7 % 11.0-15.0 [facility] Estimated glomerular filtrat ion rate (GFR) non- Americanon 08-03-2023 GFR/1.73 sq M.predicted among non-blacks MDRD (S/P/Bld) [Vol rate/Area] mL/min/{1.73_m2} >=60 [facility] Globulin Calc (S) [Mass/Vol] on 08-03-2023 Globulin (S) [Mass/Vol] 3.8 g/dL [facility] Hematocrit Auto (Bld) [Volum e fraction]on 08-03-2023 Hematocrit (Bld) [Volume fraction] 38.0 % 36.0-48.0 [facility] Hemoglobin [Mass/volume] in Bloodon 08-03-2023 Hemoglobin (Bld) [Mass/Vol] 11.9 g/dL 12.0-16.0 [facility] Laboratory - Chemistry and C hemistry - challengeon 08-03-2023 Albumin [Mass/Vol] 3.4 g/dL 3.4-5.0 [facility] ALP [Catalytic activity/Vol] 110 U/L 46-116 [facility] ALT [Catalytic activity/Vol] 21 U/L 14-59 [facility] AST [Catalytic activity/Vol] 18 U/L 15-37 [facility] Bilirubin [Mass/Vol] 0.3 mg/dL 0.2-1.0 [facility] Calcium [Mass/Vol] 8.8 mg/dL 8.5-10.1 [facility] Chloride [Moles/Vol] 103 mmol/L 98-107 [facility] CO2 [Moles/Vol] 32.4 mmol/L 21.0-32.0 [facility] Cobalamin (Vitamin B12) [Mass/Vol] 803.0 pg/mL 193.0-986.0 [facility] Creatinine [Mass/Vol] 0.88 mg/dL 0.55-1.02 [facility] GFR/1.73 sq M.predicted MDRD (S/P/Bld) [Vol rate/Area] mL/min/{1.73_m2} >=60 [facility] Glucose [Mass/Vol] 150 mg/dL 74-106 [facility] Potassium [Moles/Vol] 3.6 mmol/L 3.5-5.1 [facility] Protein [Mass/Vol] 7.2 g/dL 6.4-8.2 [facility] Sodium [Moles/Vol] 143 mmol/L 136-145 [facility] TSH Qn 1.282 m[IU]/L 0.358-3.740 [facility] Urea nitrogen [Mass/Vol] 26.0 mg/dL 7.0-18.0 [facility] Urea nitrogen/Creatinine [Mass ratio] 29.5 mg/mg [facility] Laboratory - Hematology and Cell countson 08-03-2023 Immature granulocytes/100 WBC (Bld) 0.3 % 0.0-0.5 [facility] Leukocytes [#/volume] correc loan for nucleated erythrocytes in Blood by Automated counon 08-03-2023 WBC corrected for nucl RBC Auto (Bld) [#/Vol] 8.8 10 3/uL 4.0-11.0 [facility] Lymphocytes Auto (Bld) [#/Vo l]on 08-03-2023 Lymphocytes (Bld) [#/Vol] 2.0 10 3/uL 1.2-3.8 [facility] Lymphocytes/100 WBC Auto (Bl d)on 08-03-2023 Lymphocytes/100 WBC (Bld) 22.7 % 20.5-60.0 [facility] MCH Auto (RBC) [Entitic mass ]on 08-03-2023 MCH (RBC) [Entitic mass] 27.5 pg 26.7-34.0 [facility] MCHC Auto (RBC) [Mass/Vol]on 08-03-2023 MCHC (RBC) [Mass/Vol] 31.3 g/dL 29.9-35.2 [facility] MCV Auto (RBC) [Entitic vol] on 08-03-2023 MCV (RBC) [Entitic vol] 87.8 fL 81.0-99.0 [facility] Monocytes Auto (Bld) [#/Vol] on 08-03-2023 Monocytes (Bld) [#/Vol] 0.9 10 3/uL 0.3-0.8 [facility] Monocytes/100 WBC Auto (Bld) on 08-03-2023 Monocytes/100 WBC (Bld) 9.9 % 1.7-12.0 [facility] Neutrophils Auto (Bld) [#/Vo l]on 08-03-2023 Neutrophils (Bld) [#/Vol] 5.6 10 3/uL 1.4-6.5 [facility] Neutrophils/100 WBC Auto (Bl d)on 08-03-2023 Neutrophils/100 WBC (Bld) 63.3 % 43.0-75.0 [facility] No Panel Informationon 08-02 C-Reactive Protein, Quantitative 1.82 mg/dL <=0.50 [facility] Eosinophils # (Auto) 0.3 10 3/uL 0.0-0.7 [facility] Immature Granulocyte # (Auto) 0.03 10 3/uL 0.00-0.03 [facility] Platelet mean volume Auto (B ld) [Entitic vol]on 08-03-2023 Platelet mean volume (Bld) [Entitic vol] 11.6 fL 9.5-13.5 [facility] Platelets Auto (Bld) [#/Vol] on 08-03-2023 Platelets (Bld) [#/Vol] 279 10 3/uL 150-450 [facility] RBC Auto (Bld) [#/Vol]on RBC (Bld) [#/Vol] 4.33 10 6/uL 4.20-5.40 [facility] Serum nuclear antibody titer on 08-03-2023 Nuclear Ab (S) [Titer] Negative . [facility] Comment on above: Negative <1:80 Borde rline 1:80 Positive >1:80ICAP nomenclature: AC-0For more information about Hep-2 cell patterns useANApatterns.org, the official website for theInternational Consensus on Antinuclear Antibody (ALFONZO)Patterns (ICAP).Performed at: - [facility] [id number] Director: Natanael Banegas PhD, Phone: [phone] Serum or plasma albumin/glob ulin mass ratioon 08-03-2023 Albumin/Globulin [Mass ratio] 0.9 {ratio} [facility] Serum or plasma anion gap de terminationon 08-03-2023 Anion gap [Moles/Vol] 11.2 mmol/L [facility] Serum or plasma cyclic adeno sine monophosphate measurement (moles/volume)on 08-03-2023 Adenosine monophosphate.cyclic [Moles/Vol] 3 units 0-19 [facility] Comment on above: Negative <20 Weak po sitive 20 - 39 Moderate positive 40 - 59 Strong positive >59Performed at: CB - [facility] [id number] [place], [place] [id number] Director: Natanael Banegas PhD, Phone: [phone] MR LUMBAR SPINE W AND WO CON [...] examined. Electronically Signed Out By ANNY CHU MD/[facility] By the signature on this report, the individual or group listed as making the Final Interpretation/Diagnos is certifies that they have reviewed this case. Diagnostic interpretation performed at [place] [address] Clinical History: Physician Contact Number: [phone] Ischemic Time (A): 09:35 Fixative (A): Formalin [...] submitted in toto in one cassette. 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 Refer to note in patient chart for documentation of history and physical. Providers: Gustavo Li MD (Doctor), Sara Castillo RN (Nurse), Maciel Ferrer, Chaser Helper Referring: Gustavo Li MD Medicines: See the [...] biopsy result. 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 All rights reserved. The codes documented in this report are preliminary and upon bleach packer review may be revised to meet current compliance requirements. Attending Participation: I personally performed the entire procedure. MD Gustavo Enamorado MD 12/12/2022 9:49:01 AM This report has been signed electronically. Number of Addenda: 0 Note Initiated On: 12/12/2022 9:15 AM Total Procedure Duration Time 0 hours 21 minutes 39 seconds [facility] Work Phone: Radiology Study observation (narrative) [facility] Work Phone: Endoscopic Ultrasound (Upper )Ordered By: Gustavo Li on 12-12-2022 [facility] Work Phone: No Panel Informationon 12-12 [employer] DO Work Phone: [email or web address]} [employer] DO Work Phone: [employer] DO Work Phone: Order Reconciliationon 12-12 Order [...] Metamucil [facility] orally once a day [facility] 12-Dec-2022 07:55 Metamucil [facility] orally once a day [facility] 12-Dec-2022 07:55 Metamucil [facility] is [...] day gummy Tums 750 mg daily Normal [facility] Surgical Pathology Depar tmenton 12-12-2022 [facility] Surgical Pathology Department Name LIZZY WELSH Pathologist: ANNY CHU MD Date of Procedure: 12/12/2022 Date Received: 12/12/2022 Date Reported 12/20/2022 Submitting Physician: GUSTAVO LI MD Location: [facility] Other External # FINAL DIAGNOSIS A. DUODENAL POLYP, BIOPSY: -- SMALL INTESTINAL MUCOSA DEMONSTRATING DILATED LYMPHATIC VESSELS, NO DYSPLASIA IDENTIFIED. Note: Multiple deeper levels were examined. Electronically Signed Out By ANNY CHU MD/[facility] By the signature on this report, the individual or group listed as making the Final Interpretation/Diagnos is certifies that they have reviewed this case. Diagnostic interpretation performed at [place] [address] Clinical History: Physician Contact Number: [phone] Ischemic Time (A): 09:35 Fixative (A): Formalin [...] submitted in toto in one cassette. mrs/12/13/2022 [facility] Department of Pathology [address] [place] [address] Normal [facility] Comment on above: Performed By: #### [facility] #### [facility] Surgical Pathology Department [address] [place] [address] Upper EUSon 12-12-2022 Upper EUS PATIENTNAME Patient Name: Lizzy Welsh EXAMDATE Procedure Date: 12/12/2022 9:15 AM PATIENTID PATIENTACCOUNTNUM PATIENTDOB Date of : 1950 ADMITTYPE Admit Type: Outpatient PATIENTROOM Site: [facility] 1 ETHNICITY Ethnicity: Not or RACE Race: White PROVDR Attending MD: Gustavo Li MD, [id number] ENDOPROCEDURENAME Procedure: Upper EUS INDICATION Indications: Duodenal mucosal mass/polyp found on endoscopy, 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 Refer to note in patient chart for documentation of history and physical. PRIMARYPROVIDER Providers: Gustavo Li MD (Doctor), Sara Castillo RN (Nurse), Maciel Ferrer, Chaser Helper EDREFPROVIDER Referring: Gustavo Li MD CURRENT_MEDS Medicines: [...] result. 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 All rights reserved. The codes documented in this report are preliminary and upon bleach packer review may be revised to meet current compliance requirements. ATTDRPART Attending Participation: I personally performed the entire procedure. SIGNATURENAME MD Gustavo Enamorado MD SIGNATUREDATE 12/12/2022 9:49:01 AM SIGNATUREONFILEIND This report has been signed electronically. NUMADDENDA Number of Addenda: 0 INITIATEDON Note Initiated On: 12/12/2022 9:15 AM TOTPROCTIME Total Procedure Duration Time 0 hours 21 minutes 39 seconds Normal [facility] 09-28-2022 L -- ---- Specimen: [id number] Received: 09/28/22 Status: SALVADOR Enrique Num: [id number] Spec Type: Surgical Subm Dr: Niurka Oliveira MD Tissues: A Duodenum - Biopsy (DUODENUM BX) B Esophagus Biopsy (ESOPHABEAL BX) Procedures: HE/4, Gross/Micro L4/2 ---- Age/ Patient Sex Location Account Attending Physician ---- Lizzy Welsh 72/F [id number] Niurka Oliveira MD ---- SPEC NUM: [id number] RECD: 09/28/22 STATUS: SALVADOR PRACHIBrandon NUM: [id number] ELVA: 09/28/22- SUBM DR: Niurka Oliveira MD ENTERED: 09/28/22 [facility] DR: SPEC TYPE: Surgical DEPT: S ORDERED: [...] one cassette labeled C1. ---- ---- Specimen: [id number] Received: 09/28/22 Status: SALVADOR Enrique Num: [id number] Spec Type: Surgical Subm Dr: Niurka Oliveira MD Tissues: A Duodenum - Biopsy (DUODENUM BX) B Esophagus Biopsy (ESOPHABEAL BX) Procedures: HE/4, Gross/Micro L4/2 ---- Patient: Lizzy Welsh [id number] (Continued) ---- Signed (signature on file) Baylee Newton MD 09/29/22 1009 Normal [facility] ZAK - TSHon 07-19-2022 TSH 1.271 uIU/mL Normal 0.358-3.740 [facility] Comment on above: Performed By: #### D ATTSH #### [facility] [address] [place] [address] Dr. Gertrudis Peres TSH RANGE SEE BELOW Normal [facility] Comment on above: Result Comment: <0.3 4 UIU/ml HYPERTHYROID 0.34-5.60 UIU/ml EUTHYROID >5.60 UIU/ml HYPOTHYROID Performed By: #### D ATTSH #### [facility] [address] [place] [address] Dr. Gertrudis Peres ZAK - VITAMIN Don 07-19-2022 VIT D 25-OH 26.5 ng/mL Normal [facility] Comment on above: Performed By: #### D ATVITD #### [facility] [address] [place] [address] Dr. Gertrudis Peres VIT D RANGES SEE BELOW Normal [facility] Comment on above: Result Comment: <20 ng/mL Vit D deficient 20 - <30 ng/mL Vit D insufficient 30 - 100 ng/mL Vit D sufficient >100 ng/mL Potential Toxicity Performed By: #### D ATVITD #### [facility] [address] [place] [address] Dr. Gertrudis Peres MG MAMM SCREEN 3D MANDY CADon 06-13-2022 MG MAMM SCREEN 3D MANDY CAD Patient: LIZZY WELSH Exam Date: 06/13/2022 : 1950 Gender:F Ordering : DR MCKINLEY ALFARO D.O. Admission #: [id number] Family : Order #: [id number] CLICK HERE TO VIEW EXAM RADIOLOGY REPORT [...] No Treatments None Family Cancers None LOCATION: [facility] BREAST COMPOSITION: Scattered areas fibroglandular density. FINDINGS: [...] M.D. on 06/14/2022 at 11:22 Normal [facility] XR DEXA BONE DENSITYon 06-13 XR [...] by: TIFFANY VOJESICADEREK Date: 2022-06-13 14:55 Normal [facility] PAP ACOG PANEL 2: 30 to 65on 06-10-2022 . . Normal [facility] Comment on above: Performed By: #### [id number] #### [facility] [address] [place] [address] Dr. Gertrudis Peres Age Gdln ACOG Testing Comment Normal [facility] Comment on above: Result Comment: <21 or >65 or no age provided Performed By: #### [id number] #### [facility] [address] [place] [address] Dr. Gertrudis Peres DIAGNOSIS: Comment [facility] Comment on above: Result Comment: NEGA TIVE FOR INTRAEPITHELIAL LESION OR MALIGNANCY. Performed By: #### 4 [id number] #### [facility] [address] [place] [address] Dr. Gertrudis Peres Methodology: Comment [facility] Comment on above: Result Comment: This liquid based ThinPrep(R) pap test was screened with the use of an image guided system. Performed By: #### [id number] #### [facility] [address] [place] [address] Dr. Gertrudis Peres Note: Comment [facility] Comment on above: Result Comment: The Pap smear is a screening test designed to aid in the detection of premalignant and malignant conditions of the uterine cervix. It is not a diagnostic procedure and should not be used as the sole means of detecting cervical cancer. Both false-positive and false-negative reports do occur. . Performed By: #### 4 [id number] #### [facility] [address] [place] [address] Dr. Gertrudis Peres Performed by: Comment Normal [facility] Comment on above: Result Comment: [employer] [facility] ([employer]) Performed By: #### 4 [id number] #### [facility] [address] [place] [address] Dr. Gertrudis Peres Specimen adequacy: Comment Normal [facility] Comment on above: Result Comment: Sati sfactory for evaluation. Endocervical and/or squamous metaplastic cells (endocervical component) are present. Performed By: #### 4 [id number] #### [facility] [address] [address] [address] Gertrudis Peres XR HIPS MANDY 5V [...] by: NICANOR NAQVI Date: 2022-05-03 16:34 Normal [facility] CBC AUTO DIFFon 03-31-2022 BASO # 0.0 103/ul Normal 0.0-0.1 [facility] Comment on above: Performed By: #### C BC #### [facility] [address] [address] [address] Gertrudis Peres Basophils/100 WBC (Bld) 0.5 % Normal 0.2-2.0 [facility] Comment on above: Performed By: #### C BC #### [facility] [address] [address] [address] Gertrudis Peres EO # 0.3 103/ul Normal 0.0-0.7 [facility] Comment on above: Performed By: #### C BC #### [facility] [address] [place] [address] Dr. Gertrudis Peres Eosinophils/100 WBC (Bld) 4.3 % Normal 0.9-7.0 [facility] Comment on above: Performed By: #### C BC #### [facility] [address] [place] [address] Dr. Gertrudis Peres Erythrocyte distribution width (RBC) [Ratio] 13.2 % Normal 11.0-15.0 [facility] Comment on above: Performed By: #### C BC #### [facility] [address] [place] [address] Dr. Gertrudis Peres Hematocrit (Bld) [Volume fraction] 37.9 % Normal 36.0-48.0 [facility] Comment on above: Performed By: #### C BC #### [facility] [address] [place] [address] Dr. Gertrudis Peres Hemoglobin (Bld) [Mass/Vol] 12.7 g/dL Normal 12.0-16.0 [facility] Comment on above: Performed By: #### C BC #### [facility] [address] [place] [address] Dr. Gertrudis Peres IG # 0.02 10e3/ul Normal 0.00-0.03 [facility] Comment on above: Performed By: #### C BC #### [facility] [address] [place] [address] Dr. Gertrudis Peres IG % 0.3 % Normal 0.0-0.5 [facility] Comment on above: Performed By: #### C BC #### [facility] [address] [place] [address] Dr. Gertrudis Peres LYMPH # 1.7 103/ul Normal 1.2-3.8 [facility] Comment on above: Performed By: #### C BC #### [facility] [address] [place] [address] Dr. Gertrudis Peres Lymphocytes/100 WBC (Bld) 26.4 % Normal 20.5-60.0 [facility] Comment on above: Performed By: #### C BC #### [facility] [address] [place] [address] Dr. Gertrudis Peres MANUAL DIFF REQ NO Normal [facility] Comment on above: Performed By: #### C BC #### [facility] [address] [place] [address] Dr. Gertrudis Peres MCH (RBC) [Entitic mass] 28.6 pg Normal 26.7-34.0 [facility] Comment on above: Performed By: #### C BC #### [facility] [address] [place] [address] Dr. Gertrudis Peres MCHC (RBC) [Mass/Vol] 33.5 g/dL Normal 29.9-35.2 [facility] Comment on above: Performed By: #### C BC #### [facility] [address] [place] [address] Dr. Gertrudis Peres MCV (RBC) [Entitic vol] 85.4 fL Normal 81.0-99.0 [facility] Comment on above: Performed By: #### C BC #### [facility] [address] [place] [address] Dr. Gertrudis Peres MONO # 0.5 103/ul Normal 0.3-0.8 [facility] Comment on above: Performed By: #### C BC #### [facility] [address] [place] [address] Dr. Gertrudis Peres Monocytes/100 WBC (Bld) 8.1 % Normal 1.7-12.0 [facility] Comment on above: Performed By: #### C BC #### [facility] [address] [place] [address] Dr. Gertrudis Peres NEUT # 3.9 103/ul Normal 1.4-6.5 [facility] Comment on above: Performed By: #### C BC #### [facility] [address] [place] [address] Dr. Gertrudis Peres Neutrophils/100 WBC (Bld) 60.4 % Normal 43.0-75.0 [facility] Comment on above: Performed By: #### C BC #### [facility] [address] [place] [address] Dr. Gertrudis Peres Platelet mean volume (Bld) [Entitic vol] 11.3 fL Normal 9.5-13.5 [facility] Comment on above: Performed By: #### C BC #### [facility] [address] [place] [address] Dr. Gertrudis Peres PLT 215 103/ul Normal 150-450 [facility] Comment on above: Performed By: #### C BC #### [facility] [address] [place] [address] Dr. Gertrudis Peres RBC 4.44 106/ul Normal 4.20-5.40 [facility] Comment on above: Performed By: #### C BC #### [facility] [address] [place] [address] Dr. Gertrudis Peres WBC 6.5 103/ul Normal 4.0-11.0 [facility] Comment on above: Performed By: #### C BC #### [facility] [address] [place] [address] Dr. Gertrudis Peres PROF 14(COMP METB)on 022 Albumin [Mass/Vol] 3.7 g/dL Normal 3.4-5.0 [facility] Comment on above: Performed By: #### C MP #### [facility] [address] [place] [address] Dr. Gertrudis Peres Albumin/Globulin [Mass ratio] 1.1 {ratio} Normal [facility] Comment on above: Performed By: #### C MP #### [facility] [address] [place] [address] Dr. Gertrudis Peres ALP [Catalytic activity/Vol] 112 U/L Normal 46-116 [facility] Comment on above: Performed By: #### C MP #### [facility] [address] [place] [address] Dr. Gertrudis Peres ALT [Catalytic activity/Vol] 23 U/L Normal 14-59 [facility] Comment on above: Performed By: #### C MP #### [facility] [address] [address] [address] Gertrudis Peres Anion gap [Moles/Vol] 7.1 mmol/L Normal [facility] Comment on above: Performed By: #### C MP #### [facility] [address] [address] [address] Gertrudis Peres AST [Catalytic activity/Vol] 18 U/L Normal 15-37 [facility] Comment on above: Performed By: #### C MP #### [facility] [address] [address] [address] Gertrudis Peres Bilirubin [Mass/Vol] 0.4 mg/dL Normal 0.2-1.0 [facility] Comment on above: Performed By: #### C MP #### [facility] [address] [place] [address] Dr. Gertrudis Peres Calcium [Mass/Vol] 8.6 mg/dL Normal 8.5-10.1 [facility] Comment on above: Performed By: #### C MP #### [facility] [address] [place] [address] Dr. Gertrudis Peres Chloride [Moles/Vol] 105 mmol/L Normal 98-107 [facility] Comment on above: Performed By: #### C MP #### [facility] [address] [address] [address] Gertrudis Peres CO2 [Moles/Vol] 34.0 mmol/L Critically high 21.0-32.0 [facility] Comment on above: Performed By: #### C MP #### [facility] [address] [address] [address] Gertrudis Peres Creatinine [Mass/Vol] 0.80 mg/dL Normal 0.55-1.02 [facility] Comment on above: Performed By: #### C MP #### [facility] [address] [place] [address] Dr. Gertrudis Peres EGFR-AF EQUATORIAL GUINEAN >60 Normal >=[address] [facility] Comment on above: Performed By: #### C MP #### [facility] [address] [address] [address] Gertrudis Peres EGFR-NON AF EQUATORIAL GUINEAN >60 Normal >=60 [facility] Comment on above: Performed By: #### C MP #### [facility] [address] [address] [address] Gertrudis Peres Globulin (S) [Mass/Vol] 3.5 g/dL Normal [facility] Comment on above: Performed By: #### C MP #### [facility] [address] [address] [address] Gertrudis Peres Glucose [Mass/Vol] 119 mg/dL Critically high 74-106 [facility] Comment on above: Performed By: #### C MP #### [facility] [address] [address] [address] Gertrudis Peres Potassium [Moles/Vol] 3.1 mmol/L Critically low 3.5-5.1 [facility] Comment on above: Performed By: #### C MP #### [facility] [address] [address] [address] Gertrudis Peres Protein [Mass/Vol] 7.2 g/dL Normal 6.4-8.2 [facility] Comment on above: Performed By: #### C MP #### [facility] [address] [place] [address] Dr. Gertrudis Peres Sodium [Moles/Vol] 143 mmol/L Normal 136-145 [facility] Comment on above: Performed By: #### C MP #### [facility] [address] [address] [address] Gertrudis Peres Urea nitrogen [Mass/Vol] 24.0 mg/dL Critically high 7.0-18.0 [facility] Comment on above: Performed By: #### C MP #### [facility] [address] [address] [address] Gertrudis Peres Urea nitrogen/Creatinine [Mass ratio] 30.0 mg/mg Normal [facility] Comment on above: Performed By: #### C MP #### [facility] [address] [address] [address] Gertrudis Peres US SINGLE QUAD UMBILon [...] TIFFANY ROSE Date: 2021-09-29 14:52 Normal [facility] CBC with Diffon 10-04-2018 Abs. Basophil 0.05 k/uL Normal 0.00-0.20 [facility] Comment on above: Performed By: #### C MPX, CDP #### [facility] [address] [place] [address] Dr. [address] [id number] Master Ship: Peter Conklin MD Abs.Imm.Granulocyte <0.03 Normal 0.00-0.30 [facility] Comment on above: Performed By: #### C MPX, CDP #### [address] [place], [place] [address] Master Ship: Peter Conklin MD Abs.Neutrophil (Seg) 4.64 k/uL Normal 1.50-8.10 [facility] Comment on above: Performed By: #### C MPX, CDP #### [address] [place], [facility] Master Ship: Peter Conklin MD Basophils/100 WBC (Bld) 1 % Normal 0-2 [facility] Comment on above: Performed By: #### C MPX, CDP #### [address] [place] [address] Master Ship: Peter Conklin MD Eosinophils #/vol (Bld) 0.35 10*3/uL Normal 0.00-0.44 [facility] Comment on above: Performed By: #### C MPX, CDP #### [facility] [address] [place], [facility] Master Ship: Peter Conklin MD Eosinophils/100 WBC (Bld) 4 % Normal 1-4 [facility] Comment on above: Performed By: #### C MPX, CDP #### [facility] [address] [place], [place] [address] Master Ship: Peter Conklin MD Erythrocyte distribution width Ratio (RBC) 13.8 % Normal 11.8-14.4 [facility] Comment on above: Performed By: #### C MPX, CDP #### [facility] [address] [place], [facility] Master Ship: Peter Conklin MD Hematocrit Volume Fraction (Bld) 44.8 % Normal 36.3-47.1 [facility] Comment on above: Performed By: #### C MPX, CDP #### [facility] [address] [place], [facility] Master Ship: Peter Conklin MD Hemoglobin mass conc (Bld) 14.1 g/dL Normal 11.9-15.1 [facility] Comment on above: Performed By: #### C MPX, CDP #### [facility] [address] [place], [facility] Master Ship: Peter Conklin MD Immature granulocytes #/vol (Bld) 0 % Normal 0 [facility] Comment on above: Performed By: #### C MPX, CDP #### [facility] [address] [place], [facility] Master Ship: Peter Conklin MD Lymphocytes #/vol (Bld) 2.23 10*3/uL Normal 1.10-3.70 [facility] Comment on above: Performed By: #### C MPX, CDP #### [facility] [address] [place], [facility] Master Ship: Peter Conklin MD Lymphocytes/100 WBC (Bld) 27 % Normal 24-43 [facility] Comment on above: Performed By: #### C MPX, CDP #### [facility] [address] [place], [place] [id number] Master Ship: Peter Conklin MD MCH Entitic mass (RBC) 27.8 pg Normal 25.2-33.5 [facility] Comment on above: Performed By: #### C MPX, CDP #### [facility] [address] [place], [place] [id number] Master Ship: Peter Conklin MD MCHC mass conc (RBC) 31.5 g/dL Normal 28.4-34.8 [facility] Comment on above: Performed By: #### C MPX, CDP #### [facility] [address] [place], [place] 8347483 Master Ship: Peter Conklin MD MCV Entitic volume (RBC) 88.4 fL Normal 82.6-102.9 [facility] Comment on above: Performed By: #### C MPX, CDP #### [facility] [address] [place], [place] 767[address]83 Master Ship: Peter Conklin MD Monocytes #/vol (Bld) 0.84 10*3/uL Normal 0.10-1.20 [facility] Comment on above: Performed By: #### C MPX, CDP #### [facility] [address] [place], [place] [id number] Master Ship: Peter Conklin MD Monocytes/100 WBC (Bld) 10 % Normal 3-12 [facility] Comment on above: Performed By: #### C MPX, CDP #### [facility] [address] [place], [place] [id number] Master Ship: Peter Conklin MD Neutrophil (Seg) 58 % Normal 36-65 [facility] Comment on above: Performed By: #### C MPX, CDP #### [facility] [address] [place], [place] [id number] Master Ship: Peter Conklin MD NRBC Automated 0.0 per 100 WBC Normal 0.0 [facility] Comment on above: Performed By: #### C MPX, CDP #### [facility] [address] [place], [place] 7497483 Master Ship: Peter Conklin MD Platelet mean volume Entitic volume (Bld) 11.7 fL Normal 8.1-13.5 [facility] Comment on above: Performed By: #### C MPX, CDP #### [facility] [address] [place], [place] 0529483 Master Ship: Peter Conklin MD Platelets #/vol (Bld) 269 10*3/uL Normal 138-453 [facility] Comment on above: Performed By: #### C MPX, CDP #### [address] [place], [place] 7548983 Master Ship: Peter Conklin MD RBC #/vol (Bld) 5.07 10*6/uL Normal 3.95-5.11 [facility] Comment on above: Performed By: #### C MPX, CDP #### [facility] [address] [place] [address] Master Ship: Peter Conklin MD WBC #/vol (Bld) 8.1 10*3/uL Normal 3.5-11.3 [facility] Comment on above: Performed By: #### C MPX, CDP #### [facility] [address] [place] [address] Master Ship: Peter Conklin MD Auto Diff Performed NOT REPORTED Normal [facility] Comment on above: Performed By: #### C MPX, CDP #### [facility] [address] [place], [place] 7523183 Master Ship: Peter Conklin MD Platelets #/vol (Bld) NOT REPORTED Normal [facility] Comment on above: Performed By: #### C MPX, CDP #### [facility] [address] [place] [address] Master Ship: Peter Conklin MD RBC morphology finding Nom (Bld) NOT REPORTED Normal [facility] Comment on above: Performed By: #### C MPX, CDP #### [facility] [address] [place] [address] Master Ship: Peter Conklin MD WBC Morphology NOT REPORTED Normal [facility] Comment on above: Performed By: #### C MPX, CDP #### [facility] [address] [place], [place] [id number] Master Ship: Peter Conklin MD CT ABDOMEN PELVIS WO [...] Sushant Dobbs MD 10/04/18 Final result Normal [facility] Comp Metabolic Pr/rfx MGon 0 10-04-2018 (cont.) Normal [facility] Comment on above: Result Comment: Aver age GFR for 60-69 years old: 85 mL/min/1.73sq m Chronic Kidney Disease: <60 mL/min/1.73sq m Kidney failure: <15 mL/min/1.73sq m eGFR calculated using average adult body mass. Additional eGFR calculator available at: http://www.[employer] [place]/multiple_crcl_2012.htm Performed By: #### C GABRIELLE, CDP #### [facility] [address] [place] [address] [place] [address] Master Ship: Peter Conklin MD Albumin mass conc 4.3 g/dL Normal 3.5-5.2 [facility] Comment on above: Performed By: #### C GABRIELLE, CDP #### [facility] [address] [place] [address] Master Ship: Peter Conklin MD Albumin/Globulin mass ratio 1.2 {ratio} Normal 1.0-2.5 [facility] Comment on above: Performed By: #### C GABRIELLE, CDP #### [facility] [address] [place] [address] [place] [address] Master Ship: Peter Conklin MD Alkaline Phos 184 U/L High 35-104 [facility] Comment on above: Performed By: #### C MPX, CDP #### [facility] [address] [place], [place] 2602583 Master Ship: Peter Conklin MD ALT enzyme act/vol 16 U/L Normal 5-33 [facility] Comment on above: Performed By: #### C MPX, CDP #### [facility] [address] [place], [place] [id number] Master Ship: Peter Conklin MD Anion gap molar conc 13 mmol/L Normal 9-17 [facility] Comment on above: Performed By: #### C MPX, CDP #### [facility] [address] [place], [place] 9520583 Master Ship: Peter Conklin MD AST enzyme act/vol 20 U/L Normal <32 [facility] Comment on above: Performed By: #### C MPX, CDP #### [facility] [address] [place], [place] 5088483 Master Ship: Peter Conklin MD Bilirubin Ql (U) 0.36 mg/dL Normal 0.3-1.2 [facility] Comment on above: Performed By: #### C MPX, CDP #### [facility] [address] [place], [place] 4890683 Master Ship: Peter Conklin MD BUN/CRE Ratio 53 High 9-20 [facility] Comment on above: Performed By: #### C MPX, CDP #### [facility] [address] [place], [place] 8448183 Master Ship: Peter Conklin MD Calcium mass conc 9.2 mg/dL Normal 8.6-10.4 [facility] Comment on above: Performed By: #### C MPX, CDP #### [facility] [address] [place], [place] 7293383 Master Ship: Peter Conklin MD Chloride molar conc 103 mmol/L Normal 98-107 [facility] Comment on above: Performed By: #### C MPX, CDP #### [facility] [address] [place], [place] [id number] Master Ship: Peter Conklin MD CO2 molar conc 25 mmol/L Normal 20-31 [facility] Comment on above: Performed By: #### C MPX, CDP #### [facility] [address] [place], [place] [id number] Master Ship: Peter Conklin MD Creatinine mass conc 0.60 mg/dL Normal 0.50-0.90 [facility] Comment on above: Performed By: #### C MPX, CDP #### [facility] [address] [place], [place] [id number] Master Ship: Peter Conklin MD GFR, Amer >60 Normal >60 [facility] Comment on above: Performed By: #### C MPX, CDP #### [facility] [address] [place], [place] [id number] Master Ship: Peter Conklin MD GFR,non Amer >60 Normal >60 [facility] Comment on above: Performed By: #### C MPX, CDP #### [facility] [address] [place] [address] Master Ship: Peter Conklin MD Glucose mass conc 123 mg/dL High 70-99 [facility] Comment on above: Performed By: #### C MPX, CDP #### [facility] [address] [place], [place] [id number] Master Ship: Peter Conklin MD Potassium molar conc 4.0 mmol/L Normal 3.7-5.3 [facility] Comment on above: Performed By: #### C MPX, CDP #### [facility] [address] [place], [place] [id number] Master Ship: Peter Conklin MD Protein mass conc 7.8 g/dL Normal 6.4-8.3 [facility] Comment on above: Performed By: #### C MPX, CDP #### [facility] [address] [place], [place] [id number] Master Ship: Peter Conklin MD Sodium molar conc 141 mmol/L Normal 135-144 [facility] Comment on above: Performed By: #### C MPX, CDP #### [facility] [address] [place], [place] [id number] Master Ship: Peter Conklin MD Staging: Normal [facility] Comment on above: Result Comment: Stag e 1: Some kidney damage normal GFR Stage 2: Mild kidney damage GFR 60-89 Stage 3: Moderate kidney damage GFR 30-59 Stage 4: Severe kidney damage GFR 15-29 Stage 5: Severe kidney damage GFR <15 ESRD - chronic treatment by dialysis or transplant Performed By: #### C MPX, CDP #### [facility] [address] [place], [place] [id number] Master Ship: Peter Conklin MD Urea nitrogen mass conc 32 mg/dL High 8-23 [facility] Comment on above: Performed By: #### C MPX, CDP #### [facility] [address] [place], [place] [id number] Master Ship: Peter Conklin MD Urinalysis, Routineon 2018 Acetoacetic Acid,Ur Negative Normal NEG [facility] Comment on above: Performed By: #### U A, UMICAO #### [facility] [address] [place], [place] [id number] Master Ship: Peter Conklin MD Bilirubin, SemiQt,Ur Negative Normal NEG [facility] Comment on above: Performed By: #### U A, UMICAO #### [facility] [address] [place], [place] [id number] Master Ship: Peter Conklin MD Color Nom (U) YELLOW Normal YEL [facility] Comment on above: Performed By: #### U A, UMICAO #### [facility] [address] [place] [address] Master Ship: Peter Conklin MD Glucose,Semi-qnt,Ur Negative Normal NEG [facility] Comment on above: Performed By: #### U A, UMICAO #### [facility] [address] [place] [address] Master Ship: Peter Conklin MD Hemoglobin, Ur 3+ Abnormal NEG [facility] Comment on above: Performed By: #### U A, UMICAO #### [facility] [address] [place] [address] Master Ship: Peter Conklin MD Leuckocyte Esterase SMALL Abnormal [facility] Comment on above: Performed By: #### U A, UMICAO #### [facility] [address] [place] [address] Master Ship: Peter Conklin MD Nitrite,Ur Negative Normal [facility] Comment on above: Performed By: #### U A, UMICAO #### [facility] [address] [place] [address] Master Ship: Peter Conklin MD PH,Ur 5.5 Normal 5.0-9.0 [facility] Comment on above: Performed By: #### U A, UMICAO #### [facility] [address] [place] [address] Master Ship: Peter Conklin MD Protein mass conc (U) TRACE Abnormal NEG [facility] Comment on above: Performed By: #### U A, UMICAO #### [facility] [address] [place], [place] [id number] Master Ship: Peter Conklin MD Spec. [place],Ur >1.030 High 1.010-1.020 [facility] Comment on above: Performed By: #### U A, UMICAO #### [facility] [address] [place], [place] [id number] Master Ship: Peter Conklin MD Turbidity SLIGHTLY CLOUDY Abnormal CLEAR [facility] Comment on above: Performed By: #### U A, UMICAO #### [facility] [address] [place], [place] [id number] Master Ship: Peter Conklin MD Urobilinogen,Ur Normal Normal NORM [facility] Comment on above: Performed By: #### U A, UMICAO #### [facility] [address] [place] [address] Master Ship: Peter Conklin MD Comment NOT REPORTED Normal [facility] Comment on above: Performed By: #### U A, UMICAO #### [facility] [address] [place] [address] Master Ship: Peter Conklin MD Urinalysis,Microon 9 ----- Normal [facility] Comment on above: Performed By: #### U A, UMICAO #### [facility] [address] [place] [address] Master Ship: Peter Conklin MD Bacteria LM.HPF #/area (Urine sed) TRACE Abnormal NONE [facility] Comment on above: Performed By: #### U A, UMICAO #### [facility] [address] [place] [address] Master Ship: Peter Conklin MD Epithelial cells LM.HPF #/area (Urine sed) 2 TO 5 Normal 0-25 [facility] Comment on above: Performed By: #### U A, UMICAO #### [facility] [address] [place], [place] [id number] Master Ship: Peter Conklin MD Mucus Strands TRACE Abnormal [facility] Comment on above: Performed By: #### U A, UMICAO #### [facility] [address] [place] [address] Master Ship: Peter Conklin MD RBC #/vol (U) 50 TO 100 Normal 0-2 [facility] Comment on above: Performed By: #### U A, UMICAO #### [facility] [address] [place] [address] Master Ship: Peter Conklin MD WBC #/vol (U) 2 TO 5 Normal 0-5 [facility] Comment on above: Performed By: #### U A, UMICAO #### [facility] [address] [place] [address] Master Ship: Peter Conklin MD Amorphous sediment LM Ql (Urine sed) NOT REPORTED Normal [facility] Comment on above: Performed By: #### U A, UMICAO #### [facility] [address] [place] [id number] Master Ship: Peter Conklin MD Casts LM.LPF #/area (Urine sed) NOT REPORTED Normal [facility] Comment on above: Performed By: #### U A, UMICAO #### [facility] [address] [place] [address] Master Ship: Peter Conklin MD Crystals LM Nom (Urine sed) NOT REPORTED Normal [facility] Comment on above: Performed By: #### U A, UMICAO #### [facility] [address] [place], [facility] Master Ship: Peter Conklin MD Epithelial, Renal NOT REPORTED Normal 0 [facility] Comment on above: Performed By: #### U A, UMICAO #### [facility] [address] [place] [address] Master Ship: Peter Conklin MD Other Observations NOT REPORTED Normal NREQ [facility] Comment on above: Performed By: #### U A, UMICAO #### [facility] [address] [place] [address] Master Ship: Peter Conklin MD Trichomonas NOT REPORTED Normal NONE [facility] Comment on above: Performed By: #### U A, UMICAO #### [facility] [address] [place] [address] Master Ship: Peter Conklin MD Yeast LM Ql (Urine sed) NOT REPORTED Normal NONE [facility] Comment on above: Performed By: #### U A, UMICAO #### [facility] [address] [place] [address] Master Ship: Peter Conklin MD Vital Signs Date Time Vital Sign Value Performing Clinician Facility 03-13-2024 09:29-0400 Body height 160.02 cm [facility] 03-13-2024 09:290400 Body mass index (BMI) [Ratio] 37.6 kg/m2 [facility] 03-13-2024 09:29-0400 Body weight 96.38 kg [facility] 03-13-2024 09:29-0400 Diastolic blood pressure 81 mm[Hg] [facility] 03-13-2024 09:29-0400 Heart rate 80 /min [facility] 03-13-2024 09:29-0400 Respiratory rate 12 /min [facility] 03-13-2024 09:29-0400 Systolic blood pressure 142 mm[Hg] [facility] 01-29-2024 10:03-0400 Body height 160.02 cm [facility] 01-29-2024 10:03-0400 Body mass index (BMI) [Ratio] 37.2 kg/m2 [facility] 01-29-2024 10:03-0400 Body weight 95.36 kg [facility] 01-29-2024 10:03-0400 Diastolic blood pressure 78 mm[Hg] [facility] 01-29-2024 10:03-0400 Heart rate 61 /min [facility] 01-29-2024 10:03-0400 Respiratory rate 12 /min [facility] 01-29-2024 10:03-0400 Systolic blood pressure 139 mm[Hg] [facility] 10-30-2023 09:35-0400 Body height 160.02 cm DO Mckinley Ball Work Phone: [facility] 10-30-2023 09:35-0400 Body mass index (BMI) [Ratio] 37.3 kg/m2 DO Mckinley Ball Work Phone: [facility] 10-30-2023 09:35-0400 Body weight 95.42 kg DO Mckinley Ball Work Phone: [facility] 10-30-2023 09:35-0400 Diastolic blood pressure 89 mm[Hg] DO Mckinley Ball Work Phone: [facility] 10-30-2023 09:35-0400 Heart rate 82 /min DO Mckinley Ball Work Phone: [facility] 10-30-2023 09:35-0400 Respiratory rate 12 /min DO Mckinley Ball Work Phone: [facility] 10-30-2023 09:35-0400 Systolic blood pressure 164 mm[Hg] DO Mckinley Ball Work Phone: [facility] 10-12-2023 09:18-0400 Body height 160.02 cm DO Mckinley Ball Work Phone: [facility] 10-12-2023 09:18-0400 Body mass index (BMI) [Ratio] 37 kg/m2 DO Mckinley Ball Work Phone: [facility] 10-12-2023 09:18-0400 Body weight 94.85 kg DO Mckinley Ball Work Phone: [facility] 10-12-2023 09:18-0400 Diastolic blood pressure 77 mm[Hg] DO Mckinley Ball Work Phone: [facility] 10-12-2023 09:18-0400 Heart rate 77 /min DO Mckinley Ball Work Phone: [facility] 10-12-2023 09:18-0400 Respiratory rate 12 /min DO Mckinley Ball Work Phone: [facility] 10-12-2023 09:18-0400 Systolic blood pressure 148 mm[Hg] DO Mckinley Ball Work Phone: [facility] 07-30-2023 15:01-0400 Body height 160.02 cm DO Mckinley Ball Work Phone: [facility] 07-30-2023 15:01-0400 Body mass index (BMI) [Ratio] 36.6 kg/m2 DO Mckinley Ball Work Phone: [facility] 07-30-2023 15:01-0400 Body weight 93.66 kg DO Mckinley Ball Work Phone: [facility] 07-30-2023 15:01-0400 Diastolic blood pressure 90 mm[Hg] DO Mckinley Ball Work Phone: [facility] 07-30-2023 15:01-0400 Heart rate 75 /min DO Mckinley Ball Work Phone: [facility] 07-30-2023 15:01-0400 Systolic blood pressure 149 mm[Hg] DO Mckinley Ball Work Phone: [facility] 06-13-2023 09:00-0500 Body height 161.29 cm Mckinley Ball Other [facility] [employer] Other 06-13-2023 09:00-0500 Body mass index (BMI) [Ratio] 35.43 kg/m2 Mckinley Ball Other [facility] [employer] Other 06-13-2023 09:00-0500 Body weight 92.17 kg Mckinley Ball Other [facility] [employer] Other 06-13-2023 09:00-0500 Diastolic blood pressure 77 mm[Hg] Mckinley Ball Other [employer] Other 06-13-2023 09:00-0500 Respiratory rate 12 /min Mckinley Ball Other [employer] Other 06-13-2023 09:00-0500 Systolic blood pressure 127 mm[Hg] Mckinley Ball Other [employer] Other 05-03-2023 08:30-0500 Body height 161.29 cm Mckinley Ball Other [employer] Other 05-03-2023 08:30-0500 Body mass index (BMI) [Ratio] 35.39 kg/m2 Mckinley Ball Other [employer] Other 05-03-2023 08:30-0500 Body weight 92.08 kg Mckinley Ball Other [employer] Other 05-03-2023 08:30-0500 Diastolic blood pressure 79 mm[Hg] Mckinley Ball Other [employer] Other 05-03-2023 08:30-0500 Respiratory rate 12 /min Mckinley Ball Other [employer] Other 05-03-2023 08:30-0500 Systolic blood pressure 133 mm[Hg] Mckinley Ball Other [employer] Other 03-08-2023 09:30-0400 Body height 161.29 cm Mckinley Ball Other [employer] Other 03-08-2023 09:30-0400 Body mass index (BMI) [Ratio] 35.01 kg/m2 Mckinley Ball Other [employer] Other 03-08-2023 09:30-0400 Body weight 91.08 kg Mckinley Ball Other [employer] Other 03-08-2023 09:30-0400 Diastolic blood pressure 83 mm[Hg] Mckinley Ball Other [employer] Other 03-08-2023 09:30-0400 Respiratory rate 12 /min Mckinley Ball Other [employer] Other 03-08-2023 09:30-0400 Systolic blood pressure 134 mm[Hg] Mckinley Ball Other [employer] Other 01-04-2023 11:30-0400 Body height 161.29 cm Mckinley Ball Other [employer] Other 01-04-2023 11:30-0400 Body mass index (BMI) [Ratio] 34.69 kg/m2 Mckinley Ball Other [employer] Other 01-04-2023 11:30-0400 Body weight 90.27 kg Mckinley Ball Other [employer] Other 01-04-2023 11:30-0400 Diastolic blood pressure 81 mm[Hg] Mckinley Ball Other [employer] Other 01-04-2023 11:30-0400 Respiratory rate 12 /min Mckinley Ball Other [employer] Other 01-04-2023 11:30-0400 Systolic blood pressure 131 mm[Hg] Mckinley Ball Other [employer] Other 12-12-2022 07:50-0400 Body height 153.1 cm Gustavo Li MD Work Phone: [facility] 12-12-2022 07:50-0400 Body mass index (BMI) [Ratio] 38.4 kg/m2 Gustavo Li MD Work Phone: [facility] 12-12-2022 07:50-0400 Body weight 90 kg Gustavo Li MD Work Phone: [facility] 11-01-2022 14:30-0400 Body height 161.29 cm Keara Bullard Other [employer] Other 11-01-2022 14:30-0400 Body mass index (BMI) [Ratio] 35.22 kg/m2 Keara Bullard Other [employer] Other 11-01-2022 14:30-0400 Body weight 91.63 kg Keara Bullard Other [employer] Other 11-01-2022 14:30-0400 Diastolic blood pressure 84 mm[Hg] Keara Bullard Other [employer] Other 11-01-2022 14:30-0400 Systolic blood pressure 130 mm[Hg] Keara Bullard Other [employer] Other 09-28-2022 10:05-0400 Diastolic blood pressure 75 mm[Hg] DO Letsgofordinner Work Phone: [facility] 09-28-2022 10:05-0400 Heart rate 60 /min DO Letsgofordinner Work Phone: [facility] 09-28-2022 10:05-0400 Respiratory rate 16 /min DO Letsgofordinner Work Phone: [facility] 09-28-2022 10:05-0400 SaO2% (BldA) [Mass fraction] 98 % DO Letsgofordinner Work Phone: [facility] 09-28-2022 10:05-0400 Systolic blood pressure 153 mm[Hg] DO Letsgofordinner Work Phone: [facility] 09-28-2022 07:48-0400 Body height 160.02 cm DO Arnoldo Nixon Work Phone: [facility] 09-28-2022 07:48-0400 Body temperature 98.9 [degF] DO Arnoldo Nixon Work Phone: [facility] 09-28-2022 07:48-0400 Body weight 93.89 kg DO Arnoldo Nixon Work Phone: [facility] 07-04-2022 09:30-0500 Body height 161.29 cm Mckinley Ball Other [employer] Other 07-04-2022 09:30-0500 Body mass index (BMI) [Ratio] 36.3 kg/m2 Mckinley Ball Other [employer] Other 07-04-2022 09:30-0500 Body weight 94.44 kg Mckinley Ball Other [employer] Other 07-04-2022 09:30-0500 Diastolic blood pressure 78 mm[Hg] Mckinley Ball Other [employer] Other 07-04-2022 09:30-0500 Respiratory rate 12 /min Mckinley Ball Other [employer] Other 07-04-2022 09:30-0500 Systolic blood pressure 122 mm[Hg] Mckinley Ball Other [employer] Other 03-09-2022 15:30-0400 Body height 161.29 cm Arabella Arechiga Other [employer] Other 03-09-2022 15:30-0400 Body mass index (BMI) [Ratio] 36.79 kg/m2 Arabella Arechiga Other [employer] Other 03-09-2022 15:30-0400 Body temperature 97.1 [degF] Arabella Arechiga Other [employer] Other 03-09-2022 15:30-0400 Body weight 95.71 kg Arabella Arechiga Other [employer] Other 03-09-2022 15:30-0400 Diastolic blood pressure 85 mm[Hg] Arabella Arechiga Other [employer] Other 03-09-2022 15:30-0400 Respiratory rate 18 /min Arabella Arechiga Other [employer] Other 03-09-2022 15:30-0400 SaO2% (BldA) [Mass fraction] 99 % Arabella Arechiga Other [employer] Other 03-09-2022 15:30-0400 Systolic blood pressure 135 mm[Hg] Arabella Arechiga Other [employer] Other Encounters Encounter Date Encounter Type Care Provider Facility Start: 03-13-2024 End: 03-13-2024 ambulatory [facility] Work Phone: Start: 03-13-2024 End: 03-13-2024 Patient encounter procedure [facility] Physician [facility] Work Phone: Start: 02-26-2024 Non-patient / Non-visit [facility] Start: 01-29-2024 End: 01-29-2024 ambulatory [facility] Work Phone: Start: 01-29-2024 End: 01-29-2024 Patient encounter procedure [facility] Work Phone: Start: 12-31-2023 Non-patient / Non-visit [facility] Work Phone: Start: 12-03-2023 Non-patient / Non-visit [facility] Work Phone: Start: 11-19-2023 Non-patient / Non-visit [facility] Work Phone: Start: 10-30-2023 End: 10-30-2023 ambulatory DO Mckinley Ball Work Phone: [facility] Work Phone: Start: 10-30-2023 End: 10-30-2023 Patient encounter procedure DO Mckinley Ball Work Phone: [facility] Work Phone: Start: 10-12-2023 End: 10-12-2023 ambulatory DO Mckinley Ball Work Phone: [facility] Work Phone: Start: 10-12-2023 End: 10-12-2023 Patient encounter procedure DO Mckinley Ball Work Phone: [facility] Work Phone: Start: 09-13-2023 End: 09-13-2023 ambulatory Mckinley Ball Facility:[facility] Start: 09-13-2023 End: 09-13-2023 ambulatory DO Mckinley Ball Work Phone: [facility] Work Phone: Start: 09-13-2023 End: 09-13-2023 Patient encounter procedure DO Mckinley Ball Work Phone: [facility] [address] Work Phone: Start: 09-12-2023 End: 09-12-2023 ambulatory Mckinley Ball Facility:[facility] Start: 09-12-2023 End: 09-12-2023 ambulatory DO Mckinley Ball Work Phone: [facility] Work Phone: Start: 09-12-2023 End: 09-12-2023 Patient encounter procedure DO Mckinley Alfaro Work Phone: [facility] [address] Work Phone: Start: 09-06-2023 End: 09-07-2023 ambulatory JIL HONG Not Available Start: 08-23-2023 End: 08-23-2023 ambulatory JIL HONG Not Available Start: 08-03-2023 Non-patient / Non-visit DO Augie Alfaro Work Phone: [facility] Physician [facility] Work Phone: Start: 07-30-2023 End: 07-30-2023 Patient encounter procedure DO Mckinley Alfaro Work Phone: [facility] Physician [facility] Work Phone: Start: 07-26-2023 End: 07-27-2023 ambulatory JIL HONG Not Available Start: 07-10-2023 End: 07-10-2023 ambulatory JIL HONG Not Available Start: 06-15-2023 End: 06-15-2023 ambulatory LYRIC Soraida RODRIGUEZ Not Available Start: 06-13-2023 Office outpatient vi sit 15 minutes Mckinley Alfaro [facility] Start: 06-13-2023 End: 06-14-2023 ambulatory JOHN JEROME [facility] [employer] Other Start: 06-12-2023 End: 06-12-2023 ambulatory DELL [...] 05-18-2023 End: 05-18-2023 ambulatory Mckinley Alfaro Other [employer] Other Start: 05-18-2023 Telephone encounter Mckinley Saleem [facility] Start: 05-10-2023 End: 05-10-2023 ambulatory RACHELLE JETER Not Available Start: 05-08-2023 End: 05-08-2023 ambulatory JIL HONG Not Available Start: 05-07-2023 End: 05-08-2023 ambulatory ALMilvia SALGADO Not Available Start: 05-03-2023 End: 05-03-2023 ambulatory IVONNE BORREROADOLPHY [employer] Other Start: 05-03-2023 Office outpatient vi sit 15 minutes Mckinley Alfaro [facility] Start: 04-30-2023 End: 05-01-2023 ambulatory IVONNE BORREROBLEY [...] 03-08-2023 End: 03-08-2023 ambulatory Mckinley Alfaro Other [employer] Other Start: 03-08-2023 Office outpatient vi sit 15 minutes Mckinley Alfaro [facility] Start: 02-07-2023 End: 02-07-2023 ambulatory Mckinley Alfaro Other [employer] Other Start: 02-07-2023 Telephone encounter Mckinley BRYANT [facility] Start: 01-04-2023 End: 01-04-2023 ambulatory Mckinley Alfaro Other [employer] Other Start: 01-04-2023 Encounter for other preprocedural examination Mckinley Alfaro [facility] Start: 01-04-2023 Office outpatient vi sit 25 minutes Mckinley Alfaro [facility] Start: 12-21-2022 Message Mckinley chase Work Phone: [facility] Work Phone: Start: 12-12-2022 End: 12-12-[address] Gustavo Li Facility:[id number] Start: 12-12-2022 End: 12-12-2022 Subsequent hospital visit by physician Gustavo Li MD Work Phone: [facility] Comment on above: Polyp of stomach and duodenum Start: 11-16-2022 End: 11-16-2022 ambulatory Mckinley Alfaro Other [employer] Other Start: 11-16-2022 Telephone encounter Mckinley BRYANT [facility] Start: 11-01-2022 End: 11-01-2022 ambulatory Keara Bullard Other [employer] Other Start: 11-01-2022 Office outpatient vi sit 15 minutes Keara Bullard [facility] Start: 09-28-2022 End: 09-28-2022 ambulatory Niurka Oliveira Facility:[facility] Start: 09-28-2022 End: 09-28-2022 Admission to same day surgery center DO Arnoldo House Work Phone: [facility] Work Phone: Start: 09-28-2022 End: 09-28-2022 ambulatory DO Arnoldo House Work Phone: [facility] Work Phone: Start: 07-20-2022 End: 07-20-2022 ambulatory Mckinley Alfaro Other [employer] Other Start: 07-20-2022 Telephone encounter Mckinley Alfaro [facility] Start: 07-19-2022 End: 07-20-[address] MCKINLEY ALFARO Facility:[facility] Start: 07-04-2022 End: 07-04-2022 ambulatory Mckinley Alfaro Other [employer] Other Start: 07-04-2022 Office outpatient vi sit 25 minutes Mckinley Alfaro [facility] Start: 06-14-2022 End: 06-14-2022 ambulatory Arabella Arechiga Other [employer] Other Start: 06-14-2022 Telephone encounter Arabella Cahconl t [facility] Start: 06-13-2022 End: 06-14-[address] MCKINLEY ALFARO Facility:[facility] Start: 06-07-2022 End: 06-07-[address] MCKINLEY ALFARO Facility:[facility] Start: 05-03-2022 End: 05-04-[address] MCKINLEY ALFARO Facility:[facility] Start: 03-31-2022 End: 04-01-[address] MCKINLEY ALFARO Facility:[facility] Start: 03-09-2022 End: 03-09-2022 ambulatory Arabella Arechiga Other [employer] Other Start: 03-09-2022 Office outpatient vi sit 15 minutes Arabella Arechiga [facility] Start: 09-29-2021 End: 09-30-[address] MCKINLEY ALFARO Facility:[facility] Start: 10-05-2018 End: 10-05-2018 Emergency department patient visit MCKINLEY ALFARO [facility] Start: 10-04-2018 End: 10-04-2018 Emergency department patient visit HARJIT OLIVIA [facility] Start: 09-25-2017 End: 09-26-2017 Ambulatory DEFAULT PHYSICIAN Facility:[facility] Start: 09-07-2017 End: 09-08-2017 Ambulatory DEFAULT PHYSICIAN Facility:[facility] Procedures Date Procedure Procedure Detail [...] Start: 09-12-2023 Hepatitis B core antibody measurement [facility] Start: 09-12-2023 [facility] Start: 01-19-2023 Influenza vaccination Influenza Vaccine (#1) [facility] Start: 09-28-2022 [facility] Start: 2017 Pneumococcal Vaccine: 65+ Years (1 - PCV) Pneumococcal Vaccine: 65+ Years (1 - PCV) [facility] Start: 2002 Zoster Vaccines (1 of 2) Zoster Vaccines (1 of 2) [facility] Start: 1992 Screening for malignant neoplasm of breast Mammogram [facility] Start: 1974 DTaP/Tdap/Td Vaccines (1 - Tdap) DTaP/Tdap/Td Vaccines (1 - Tdap) [facility] Start: 1970 Hepatitis C screening Hepatitis C Screening [facility] Start: 1952 COVID-19 Vaccine (#1) COVID-19 Vaccine (#1) [facility] Start: 1952 Lipid panel Lipid Panel [facility] Start: 1952 Screening for malignant neoplasm of colon [facility] Start: 1952 Screening for osteoporosis Bone Density Scan [facility] Start: 1952 Yearly Adult Physical Yearly Adult Physical [facility] Comprehensive metabo lic 2000 panel - Serum or Plasma [facility] Hepatitis B virus jimenez rface Ab [Presence] in Serum [facility] Hepatitis B virus jimenez rface Ag [Presence] in Serum or Plasma by Immunoassay [facility] Hepatitis C virus Ig G Ab [Presence] in Serum or Plasma by Immunoassay [facility] MG Breast - bilatera l Screening [facility] Patient Education Esophageal Dil ation Hiatal Hernia (DC) Stomach Polyps [facility] Work Phone: Rheumatoid factor [Units/volume] in Serum or Plasma [facility] Thyroid stimulating immunoglobulins actual/normal in Serum [facility] XR Hip - left 2 Views [facility] Immunizations Immunization Date Immunization Notes Care Provider Fa velia 01-29-2024 influenza, high dose seasonal, preservative-free [facility] 03-08-2023 influenza virus vaccine, unspecified formulation DO Mckinley Alfaro Work Phone: [facility] 03-08-2023 influenza, high dose seasonal, preservative-free Mckinley Alfaro Other [employer] Other 04-07-2022 diphtheria, tetanus toxoids and acellular pertussis vaccine, unspecified formulation Mckinley Alfaro Other [facility] 03-01-2022 influenza virus vaccine, split virus (incl. purified surface antigen) Mckinley Alfaro Other [employer] Other 03-01-2022 influenza virus vaccine, unspecified formulation DO Mckinley Alfaro Work Phone: [facility] 08-04-2019 pneumococcal conjuga te vaccine, 13 valent Mckinley Alfaro Other [facility] Payers Date Payer Category Payer Self-pay [id number] 2022 Unknown [id number] 2015 Unknown [id number] 2015 Unknown [id number] 1959 Medicare [id number] 2.16.840.1.120239.19 1959 Self-pay [id number] 1959 Unknown [id number] 2.16.840.1.553671.19 1952 Unknown [id number] 2.16.840.1.709079.3.579.2.1 73 1952 Unknown [id number] 2.16.840.1.490180.3.579.2.1 73 1952 Unknown [id number] 2.16.840.1.504308.3.579.2.5 93 1952 Unknown [id number] 2.16.840.1.999379.3.579.2.5 93 1952 Unknown [id number] 2.16.840.1.071941.3.579.2.5 93 1952 Unknown [id number] 2.16.840.1.051552.3.579.2.5 93 1952 Unknown [id number] 2.16.840.1.155538.3.579.2.5 93 1952 Unknown [id number] 2.16.840.1.364289.3.579.2.1 069 1952 Unknown [id number] 2.16.840.1.378027.3.579.2.1 259 1952 Unknown [id number] 2.16.840.1.163268.3.579.2.1 259 1952 Unknown [id number] 2.16.840.1.354111.3.579.2.1 259 1952 Unknown [id number] 2.16.840.1.974251.3.579.2.1 259 1952 Unknown [id number] 2.16.840.1.996642.3.579.2.1 259 1952 Unknown [id number] 2.16.840.1.996795.3.579.2.1 259 1952 Unknown [id number] 2.16.840.1.424522.3.579.2.1 259 1952 Unknown [id number] 2.16.840.1.158829.3.579.2.1 259 1952 Unknown [id number] 2.16.840.1.317546.3.579.2.1 259 1952 Unknown [id number] 2.16.840.1.746187.3.579.2.1 259 1952 Unknown [id number] 2.16.840.1.944403.3.579.2.1 259 1952 Unknown [id number] 2.16.840.1.485563.3.579.2.1 259 1952 Unknown [id number] 2.16.840.1.080941.3.579.2.1 259 1952 Unknown [id number] 2.16.840.1.029963.3.579.2.1 259 1952 Unknown [id number] 2.16.840.1.132572.3.579.2.1 259 1952 Unknown [id number] 2.16.840.1.758210.3.579.2.1 259 1952 Unknown [id number] 2.16.840.1.207254.3.579.2.1 259 1952 Unknown [id number] 2.16.840.1.146122.3.579.2.1 259 1952 Unknown [id number] 2.16.840.1.999112.3.579.2.1 259 1952 Unknown [id number] 2.16.840.1.497613.3.579.2.1 259 1952 Unknown [id number] 2.16.840.1.768430.3.579.2.1 259 1952 Unknown [id number] 2.16.840.1.102710.3.579.2.1 259 1952 Unknown [id number] 2.16.840.1.935015.3.579.2.1 259 1952 Unknown [id number] 2.16.840.1.302849.3.579.2.1 259 1952 Unknown [id number] 2.16.840.1.007460.3.579.2.1 259 1952 Unknown [id number] 2.16.840.1.803279.3.579.2.1 259 1952 Unknown [id number] 2.16.840.1.718367.3.579.2.1 259 1952 Unknown [id number] 2.16.840.1.592316.3.579.2.1 259 1952 Unknown [id number] 2.16.840.1.511791.3.579.2.1 259 Medicare Medicare-OP No Part B [id number] Unknown Unknown [id number] 2.16.840.1.424667.3.579.2.5 93 Unknown [id number] 2.16.840.1.978486.3.579.2.5 31 Unknown [id number] 2.16.840.1.907747.3.579.2.5 31 Unknown [id number] 2.16.840.1.276577.3.579.2.5 31 Worker's Compensation [employer] [facility] [id number] Social History Date Type Detail Facility Unknown if ever smoked [facility] [employer] Other Sex Assigned At [facility] Other Start: 09-28-2022 Tobacco smoking status NHIS Never smoked tobacco (finding) [facility] Start: 1950 Sex Assigned At Female F [facility] Tobacco smoking status [facility] Tobacco smoking consumption unknown [facility] Work Phone: Start: 1950 Sex Assigned [...] Orthopedics w/ increased pain or trigger finger [facility] [employer] Other 12-14-2023 Evaluation note* Encounter Date Diagnosis [...] index [BMI] 35.0-35.9, adult (ICD-10 - Z68.35) [employer] Other 10-19-2023 Evaluation note* Encounter Date Diagnosis [...] to r/o fracture Continue Mobic and add [place] for now. Consider PT if XR negative Feb, Right hip pain (ICD-10 - M25.551) XR to determine degree of arthritis and r/o fx. ROM exercises COntinue Mobic and add [place] for now. Feb, Seborrheic dermatitis (ICD-10 - [...] index [BMI] 35.0-35.9, adult (ICD-10 - Z68.35) [employer] Other 08-17-2023 Evaluation note* Encounter Date Diagnosis [...] also instructed to stop Mobic and start [place], 7 days prior to her procedure. Dec, Gastroesophageal reflux disease with esophagitis without hemorrhage (ICD-10 - K21.00) Stable, continue medication w/o interruption Dec, Traumatic complete tear of right rotator cuff, subsequent encounter (ICD-10 - S46.011D) Scheduled for arthroscopic repair w/ Dr. Hong. 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 Refer to note in patient chart for documentation of history and physical. Providers: Gustavo Li MD (Doctor), Sara Castillo RN (Nurse), Maciel Ferrer, Chaser Helper Referring: Gustavo Li MD Medicines: See the [...] biopsy result. 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 Discussed options of treatment due to pt leaving for [place] on Sunday. SHe is agreeable to kenalog [...] Oct, Right hip pain (ICD-10 - M25.551) [employer] [facility] Encounter Date Diagnosis Assessment [...] exercise for 30 minutes, 3-5 times weekly. [employer] Other 10-20-2022 Evaluation note* Encounter Date Diagnosis [...] with primary care provider to discuss reaction. [employer] Other Evaluation noteNo InformationNort [employer] Other Evaluation note* Diagnosis Onset Date Resolution Status Dysphagia acute [facility] Work Phone: Evaluation note* Diagnosis Polyp of stomach and duodenum documented in this encounter [facility] Work Phone: Evaluation note* Diagnosis Onset Date Resolution Status Age-related osteoporosis wit hout current pathological fracture acute Dupuytren's contracture of right hand acute GERD (gastroesophageal reflux disease) acute Hypertension acute Inflammatory polyarthritis a cute Lumbar spondylosis acute Trigger finger acute Medicare annual wellness visit, subsequent noneactive Screening mammogram for breast cancer noneactive [facility] Work Phone: Evaluation note* Diagnosis Onset [...] Strain of hip and thigh acut e [facility] Work Phone: Evaluation note* Diagnosis Onset Date Resolution Status Left hip pain acute Primary osteoarthritis of hip acute Strain of hip and thigh acut e Age-related osteoporosis wit hout current pathological fracture acute Fibromyalgia acute GERD (gastroesophageal reflux disease) acute Hypertension acute Inflammatory polyarthritis a cute Lumbar spondylosis acute Trigger finger acute [facility] Work Phone: Evaluation note* Diagnosis Onset Date Resolution Status Age-related osteoporosis wit hout current pathological fracture acute Fibromyalgia acute GERD (gastroesophageal reflux disease) acute Hypertension acute Lumbar spondylosis acute Opiate analgesic use agreement exists acute Psoriatic arthritis acute [facility] Work Phone: Evaluation note* Diagnosis Onset Date Resolution Status Age-related osteoporosis wit hout current pathological fracture acute Fibromyalgia acute GERD (gastroesophageal reflux disease) acute Hypertension acute Lumbar spondylosis acute Opiate analgesic use agreement exists acute Psoriatic arthritis acute Age-related osteoporosis wit hout current pathological fracture acute Fibromyalgia acute GERD (gastroesophageal reflux disease) acute Hypertension acute Lumbar spondylosis acute Psoriatic arthritis acute [facility] Work Phone: Hisqrxg general Narrative - Reported* Type Description Date Medical History Hypertension Medical History Acid reflux Medical History Hiatal hernia Surgical History back surgery x3 Surgical History Neck Surgery Surgical History shoulder arthroscopy Surgical History hysterectomy Surgical History cholecystectomy Hospitalization History see above [employer] Other Hishpbb general Narrative - Reported* Type Description Date Medical History Hypertension Medical History Acid reflux Medical History Hiatal hernia Surgical History back surgery x3 Surgical History Neck Surgery Surgical History shoulder arthroscopy Surgical History hysterectomy Surgical History cholecystectomy Surgical History EGD w/ bx and dilatation 09/2022 Hospitalization History see above [employer] Other Hissegr general Narrative - Reported* Type Description Date Medical History Hypertension Medical History Acid reflux Medical History Hiatal hernia Surgical History back surgery x3 Surgical History Neck Surgery Surgical History shoulder arthroscopy Surgical History hysterectomy Surgical History cholecystectomy Surgical History EGD w/ bx and dilatation 09/2022 Surgical History Right shoulder arthroscopy 02/07 23 Hospitalization History see above [employer] Other History general Narrative - Reported* Type Description Date Medical History Hypertension Medical History Acid reflux Medical History Hiatal hernia Surgical History back surgery x3 Surgical History Neck Surgery Surgical History shoulder arthroscopy Surgical History hysterectomy Surgical History cholecystectomy Surgical History EGD w/ bx and dilatation 09/2022 Surgical History Right shoulder arthroscopy 02/07 23 Surgical History Endoscopic US 11/2022 Hospitalization History see above [employer] Other Hospital Discharge instructions Additional Instructions DISCHARGE [...] if you have any problems. -Office number [phone] Work Phone: Summary Purpose Family History [...] section and content) DATE CREATED AUTHOR 11/08/2017 [facility] DATE CREATED AUTHOR AUTHOR'S ORGANIZ ATION 10/13/2018 [facility] DATE CREATED AUTHOR AUTHOR'S ORGANIZ ATION 07/21/2022 [facility] DATE CREATED AUTHOR AUTHOR'S ORGANIZ ATION 12/21/2022 [facility] DATE CREATED AUTHOR AUTHOR'S ORGANIZ ATION 12/22/2022 [facility] DATE CREATED AUTHOR AUTHOR'S ORGANIZ ATION 09/10/2023 [facility] EPIC DATE CREATED AUTHOR AUTHOR'S ORGANIZ ATION 09/21/2023 [facility] REASON FOR VISIT (unrecogniz ed section and content) Reason Comments Other EGD/EUS D49.0 [id number] Care Teams (unrecognized sec tion and content) [...] Active Niurka Oliveira MD Attending Provider 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 [facility] [employer] provides no warranty or guarantee of the accuracy or completeness of information in this document.
== END 2024-05-02 07:43 | disposition home or self-care (01) ==
LOC: MAMMO 07:42
PROVIDERS: PCP Internal Medicine; Visit Provider Nurse Practitioner Family
DX: N64.4 Mastodynia (principal); N63.20 Unspecified lump in the left breast, unspecified quadrant
CPT/HCPCS: 76642; 77066; G0279

== ENCOUNTER 2024-08-12 10:29 | Outpatient (OUT) | payer MEDICARE, OTHER, SELFPAY ==
--- OUTSIDE RECORDS SUMMARY | 2024-08-12 10:51 | XMS_ITS | CCD ---
Author Organization [facility] Care Team Providers Care Want Ad Supervisor Name Role Phone PHYSICIAN, DEFAULT Unavailable Unavailable [...] Unavailable DO Arnoldo Nixon Primary Care Provider [phone] MD Niurka Oliveira Attending Provider [phone] Keara Bullard Unavailable [phone] Mckinley Alfaro Unavailable Dinary, Dr. Lopes [...] Unavailable Ball, DO Mckinley Primary Care Provider [phone] MD Tano Tsai Attending Provider Niurka Oliveira [...] Substance Allergy 10-30-19 24 Redness of Skin [facility] Dihydrofolate Reductase Inhibitors (antibiotic) (1 source) Trimethoprim Drug Allergy 10-30-19 24 Unknown Reaction [facility] Nitrofurantoin (1 source) Nitrofurantoin Drug Allergy 10-30-19 24 Comment:Macrob id [facility] Penicillins (antibiotic) (1 source) Penicillins Drug Allergy 10-30-19 24 Swelling of Lip/Tongue/Thr oat [facility] Sulfonamides (antibiotic) (1 source) Sulfamethoxazole Drug Allergy 10-30-19 24 Unknown Reaction [facility] tiZANidine (1 source) tiZANidine Drug Allergy 10-30-19 24 Insomnia [facility] (6 sources) Penicillin G Drug Allergy anaphylaxis [employer] Other (1 source) Penicillin Drug Allergy 01-23-20 15 [facility] Repository (8 sources) Adhesive Tape; Translations: [adhesive tape] Propensity to adverse reactions 02-24-20 17 Redness of Skin [facility] Comment on above: Onset Date: 04/19/20 16 (9 sources) Penicillins; Translations: [Penicillins] Allergy to substance 02-24-20 17 Swelling of Lip/Tongue/Thr oat [facility] Comment on above: Onset Date: 04/19/20 16 (6 sources) Adhesive Tape Drug allergy 04-19-20 16 Unknown [employer] Other (12 sources) Nitrofurantoin Drug Allergy 07-30-19 24 Comment:Macrob id [facility] (6 sources) Sulfamethoxazole / Trimethoprim Drug Allergy Unknown [employer] Other (6 sources) tiZANidine Comfort Pac *MUSCULOSKELETAL THERAPY AG Propensity to adverse reactions Comment:Could not sleep/rest. [employer] Other (6 sources) Substance with penicillin structure and antibacterial mechanism of action (substance) Drug allergy 04-19-20 16 Unknown [employer] Other (7 sources) Sulfamethoxazole; Translations: [sulfamethoxazole] Drug Allergy 07-30-19 24 Unknown Reaction [facility] (7 sources) tiZANidine; Translations: [tizanidine] Drug Allergy 07-30-19 Insomnia [facility] (7 sources) Trimethoprim; Translations: [trimethoprim] Drug Allergy 07-30-19 Unknown Reaction [facility] (1 source) Nitrofurantoin Drug Allergy 07-30-19 [facility] Repository Medications Current Medications Medication Drug Class(es) Dates Sig (Normalized) Sig (Original) acetaminophen 325 mg / HYDROcodone bitartrate 5 mg oral tablet (20 sources) Opioid Agonist Start: 07-26-2023 End: 08-05-2024 take 1 tablet by mouth twice daily as needed for pain Hydrocodone-Aceta minophen 5-325 mg tablet Active 1 TAB PO Twice daily as needed for pain 60 August 05, 2024 start 08/05 Start: 06-13-2023 take 1 tablet by romulo [...] 1 tablet by mouth once daily Atenolol 100 mg tablet Active 0 .ROUTE .COMPLEX 90 October 22, 2023 4:46pm TAKE 1 TABLET BY MOUTH EVERY DAY Start: 04-08-2018 End: 10-22-2023 take 1 tablet by mouth once daily Atenolol 100 mg tablet Discontinued 100 MG PO Daily July 26, 2023 2:47pm October 22, 2023 4:46pm Start: 02-23-2017 End: 04-08-2018 take 2 tablets by mouth once daily Atenolol 50 mg Tablet Discontinued 100 MG PO Daily February 23, 2017 12:00am April 08, 2018 8:29am Start: 02-23-2017 End: 04-08-2018 take 100 mg by mouth once daily Atenolol Discontinued 100 MG PO Daily February 23, 2017 12:00am April 08, 2018 8:29am take 1 tablet by romulo th every twenty-four hours Atenolol 50 MG 1 tablet Orally Once a day Not-Taking/PRN biotin 1 mg oral tablet (20 sources) Start: 04-08-2018 End: 07-26-2023 take 1 tablet by mouth once daily Biotin 1 mg tablet Active 1 MG PO Daily July 26, 2023 2:47pm Start: 02-23-2017 End: 08-24-2017 take 3 tablets by mouth once daily Biotin 1,000 mcg Tablet,Chewable Discontinued 3 TAB PO Daily February 23, 2017 12:00am August 24, 2017 7:39am take 1 tablet by romulo th every twenty-four hours Biotin Maximum Strength 63658 MCG 1 tablet Orally Once a day PRN Active take 1 tablet by romulo th every twenty-four hours Biotin Maximum Strength 17817 MCG 1 tablet Orally Once a day PRN Active Biotin Maximum Strength 08847 MCG (7 sources) take 1 tablet by romluo th once daily as needed Biotin Maximum Strength 88431 MCG 1 tablet Orally Once a day PRN Active take 1 tablet by mouth once gayla y Biotin Maximum Strength 89616 MCG 1 tablet Orally Once a day Active cholecalciferol 0.05 mg oral capsule (9 sources) Vitamin D Start: 03-17-2024 take 1 capsule by mouth once daily Cholecalciferol (Vitamin D3) 50 mcg (2,000 unit) capsule Active 100 MCG PO Daily March 17, 2024 12:00am Start: 09-28-2022 End: 07-26-2023 take 1 tablet by mouth once daily Cholecalciferol (Vitamin D3) (Vitamin D3) 25 mcg (1,000 unit) Tablet Discontinued 25 MCG PO Daily September 28, 2022 12:00am July 26, 2023 2:56pm dimenhyDRINATE 50 mg oral tablet (15 sources) Start: 07-26-2023 take 1 tablet by mouth every six hours as needed Dimenhydrinate 50 mg tablet Active 50 MG PO Every 6 hours as needed July 26, 2023 1:00am take 1 tablet by mouth every six hours Dramamine 50 MG 1 tablet as needed Orally every 6 hrs Active hydroCHLOROthiazide 25 mg oral tablet (13 sources) Thiazide Diuretic Start: 03-10-2024 take 1 tablet by mouth once daily Hydrochlorothiazide 25 mg tablet Active 0 .ROUTE .COMPLEX March 10, 2024 10:41am TAKE 1 TABLET BY MOUTH EVERY DAY Start: 09-28-2022 End: 03-10-2024 take 1 tablet by mouth once daily Hydrochlorothiazide 25 mg tablet Discontinued 25 MG PO Daily September 28, 2022 12:00am March 10, 2024 10:41am meloxicam 15 mg oral tablet (20 sources) Nonsteroidal Anti-inflammatory Drug Start: 06-01-2024 take 1 tablet by mouth once daily Meloxicam 15 mg tablet Active 0 .ROUTE .COMPLEX June 01, 2024 8:27pm TAKE 1 TABLET BY MOUTH EVERY DAY Start: 01-29-2024 End: 06-01-2024 take 1 tablet by mouth once daily Meloxicam 15 mg tablet Discontinued 15 MG PO Daily January 29, 2024 12:00am June 01, 2024 8:27pm Start: 02-23-2017 End: 07-26-2023 take 1 tablet by mouth once daily Meloxicam 15 mg Tablet Discontinued 15 MG PO Daily February 23, 2017 12:00am July 26, 2023 2:57pm omeprazole 40 mg delayed release oral capsule (20 sources) Proton Pump Inhibitor Start: 07-26-2023 take 1 capsule by mouth once daily Omeprazole 40 mg capsule,delayed release(DR/EC) Active 40 MG PO Daily July 26, 2023 1:00am Start: 08-24-2017 End: 07-26-2023 take 1 capsule by mouth once daily Omeprazole 20 mg Capsule,Delayed Release(Dr/Ec) Discontinued 20 MG PO Daily April 08, 2018 1:00am July 26, 2023 2:57pm Omeprazole 40 MG TAKE 1 CAPSULE BY MOUTH 30 MINUTES BEFORE MORNING MEAL EVERY DAY FOR 30 DAYS Orally Once a day for 90 days Active potassium chloride 10 meq extended release oral capsule (10 sources) Start: 04-29-2024 take 1 capsule by mouth twice daily Potassium Chloride 10 mEq capsule, extended release Active 10 MEQ PO Twice daily April 29, 2024 12:05pm Start: 07-26-2023 End: 04-29-2024 take 1 capsule by mouth once daily Potassium Chloride 10 mEq capsule, extended release Discontinued 10 MEQ PO Daily July 26, 2023 1:00am April 29, 2024 12:05pm Start: 05-17-2023 take 1 capsule by mo [facility] every twenty-four hours Potassium Chloride ER 10 MEQ 1 capsule with food Orally Once a day for 30 days Apr, Active Semaglutide (1 source) Start: 04-30-2024 Semaglutide (O zempic) 0.25 mg or 0.5 mg (2 mg/3 mL) pen injector Active 0.25 MG SUBCUT every week 3 April 30, 2024 1:00am for 4 weeks triamcinolone acetonide 0.005 mg/mg topical ointment (19 sources) Corticosteroid Start: 07-26-2023 Triamcinolone Acetonide 0.5 % ointment Active 1 APPLIC TOPICAL Twice daily as needed July 26, 2023 1:00am Start: 03-08-2023 Triamcinolone Acetonide 0.5 % 1 application Externally Twice a day for 30 days Feb, Active Start: 11-01-2022 Kenalog-40 Oct, 40 mg 100 ml zoledronic acid 0.05 mg/ml injection (10 sources) Bisphosphonate Start: 07-26-2023 Zoledronic Wihe-Jemqpvct-Sknkv (Reclast) 5 mg/100 mL piggyback Active EACH IV As Directed July 26, 2023 1:00am Start: 05-03-2023 Reclast 5 MG/1 00ML as directed Intravenous Apr, Active Completed/Discontinued Medications Medication Drug Class(es) Dates Sig (Normalized) Sig (Original) aspirin 81 mg delayed release oral tablet (8 sources) Platelet Aggregation Inhibitor, Nonsteroidal Anti-inflammatory Drug Start: 04-02-2018 End: 09-28-2022 take 1 tablet by mouth once daily Aspirin (Aspir-81) 81 mg Tablet,Delayed Release (Dr/Ec) Discontinued 81 MG PO Daily April 02, 2018 1:00am September 28, 2022 7:46am Calcium (8 sources) Phosphate Binder, Calcium Start: 09-28-2022 End: 07-26-2023 take 1 tablet by mouth once daily Calcium 500 mg Tablet Discontinued 500 MG PO Daily September 28, 2022 12:00am July 26, 2023 2:56pm Start: 09-28-2022 End: 07-26-2023 take 500 mg [...] 7:39am calcium carbonate 750 mg chewable tablet (16 sources) Start: 09-28-2022 End: 07-26-2023 take 1 tablet by mouth twice daily as needed for gastroesophageal reflux disease Calcium Carbonate (Tums) 300 mg (750 mg) Tablet,Chewable Discontinued 300 MG PO Twice daily as needed for Heartburn September 28, 2022 12:00am July 26, 2023 2:56pm Start: 08-24-2017 End: 10-21-2018 Calcium Carbonate (Calcium 5 00) 500 mg calcium (1,250 mg) Tablet Discontinued 1000 MG PO Daily August 24, 2017 12:00am October 21, 2018 8:46am doxycycline hyclate 100 mg oral capsule (1 source) Tetracycline-class Drug Start: 05-15-2024 End: 08-08-2024 take 1 capsule by mouth twice daily Doxycycline Hyclate 100 mg capsule Discontinued 100 MG PO Twice daily 01 12May 15, 2024 1:00am August 08, 2024 8:40am folic acid 1 mg oral tablet (3 sources) Start: 10-30-2023 End: 08-08-2024 take 1 tablet by mouth once daily Folic Acid 1 mg tablet Discontinued 1 MG PO Daily October 30, 2023 12:00am August 08, 2024 8:40am hydroCHLOROthiazide 12.5 mg / olmesartan medoxomil 20 mg oral tablet (8 sources) Thiazide Diuretic, Angiotensin 2 Receptor Natacha Start: 04-02-2018 End: 10-21-2018 take 1 tablet by mouth once daily Olmesartan-Hydr ochlorothiazide (Benicar Hct) 20-12.5 mg Tablet Discontinued 1 TAB PO Daily April 02, 2018 1:00am October 21, 2018 8:47am hydroCHLOROthiazide 12.5 mg / valsartan 80 mg oral tablet (16 sources) Thiazide Diuretic, Angiotensin 2 Receptor Natacha Start: 08-24-2017 End: 04-02-2018 take 1 tablet by mouth once daily Valsartan-Gorham chlorothiazide 80-12.5 mg Tablet Discontinued 1 TAB PO Daily August 24, 2017 12:00am April 02, 2018 10:59am Start: 02-23-2017 End: 04-20-2017 take 1 tablet by mouth once daily Valsartan-Hydrochlorothiazide 80-12.5 mg Tablet Discontinued 1 TAB PO Daily February 23, 2017 12:00am April 20, 2017 9:52am hydrocortisone 10 mg/ml / neomycin 3.5 mg/ml / polymyxin b 10800 unt/ml otic solution (12 sources) Aminoglycoside Antibacterial, Polymyxin-class Antibacterial, Corticosteroid Start: 03-09-2022 Pighwqcg-Ikcshasac-IH 3.5-90361-1 4 drops into affected ear Otic Three times a day for 7 day(s) Feb, Not-Taking/PRN inulin 2000 mg chewable tablet (8 sources) Start: 09-28-2022 End: 07-26-2023 take 1 tablet by mouth once daily Inulin (Fiber Gummies) 2 gram Tablet,Chewable Discontinued 1 GM PO Daily September 28, 2022 12:00am July 26, 2023 2:56pm Magnesium (8 sources) Start: 04-08-2018 End: 10-21-2018 take 1 tablet by mouth once daily Magnesium 250 mg Tablet Discontinued 250 MG PO Daily April 08, 2018 1:00am October 21, 2018 8:46am Start: 04-08-2018 End: 10-21-2018 take 250 mg by mouth once daily Magnesium Discontinued 250 MG PO Daily April 08, 2018 1:00am October 21, 2018 8:46am Meclizine (12 sources) Antiemetic Meclizine HCl ND N Not-Taking/PRN Meclizine HCl ND N Not-Taking Meclizine HCl ND N Active methotrexate 2.5 mg oral tablet (3 sources) Folate Analog Metabolic Inhibitor Start: 10-30-2023 End: 08-08-2024 take 1 tablet by mouth every week Methotrexate Sodium 2.5 mg tablet Discontinued 2.5 MG PO every week October 30, 2023 12:00am August 08, 2024 8:40am methylPREDNISolone 4 mg oral tablet (20 sources) Corticosteroid Start: 03-09-2022 methylPREDNISolone 4 MG as directed Orally daily for 6 days Oct, Not-Taking/PRN Multivitamin With Minerals (Hair,Skin And Nails) Tablet (8 sources) Start: 08-24-2017 End: 10-21-2018 take 1 tablet by mouth once daily Multivitamin With Minerals (Hair,Skin And Nails) Tablet Discontinued 1 TAB PO Daily August 24, 2017 12:00am October 21, 2018 8:46am [place] 9-Lis-Oja-Fish Oil (Fish Oil) 1,000 mg (120 mg-180 mg) Capsule (8 sources) Start: 02-23-2017 End: 08-24-2017 take 1 capsule by mouth once daily [place] 2-Ybt-Irs-Fish Oil (Fish Oil) 1,000 mg (120 mg-180 mg) Capsule Discontinued 1 CAP PO Daily February 23, 2017 12:00am August 24, 2017 7:39am [place] Red (8 sources) Start: 04-02-2018 End: 09-28-2022 take 1 tablet by mouth once daily [place] Red Discontinued 1 TAB PO Daily April 02, 2018 1:00am September 28, 2022 7:45am paxlovid (300/100) 20 x 150 mg & 10 x 100mg tablet therapy pack (3 sources) Start: 09-06-2022 take 3 tablets by mouth every twelve hours Paxlovid (300/100) 20 x 150 MG & 10 x 100MG 3 tablets Orally Twice a day for 5 day(s) Aug, Not-Taking/PRN predniSONE 20 mg oral tablet (2 sources) Start: 05-15-2024 End: 08-08-2024 take 2 tablets by mouth once daily Prednisone 20 mg tablet Discontinued 20 MG PO .COMPLEX May 15, 2024 1:00am August 08, 2024 8:40am Take 2 tabs po daily x 5 days Start: 06-13-2023 predniSONE 20 MG 1 tablet Orally bid w/ food x 5 days then qd w/ food x 5 days for 10 days May, Active traMADol hydrochloride 50 mg oral tablet (13 sources) Opioid Agonist Start: 09-28-2022 End: 07-26-2023 take 1 tablet by mouth once daily as needed for anxiety Tramadol 50 mg tablet Discontinued 50 MG PO Daily as needed for Anxiety September 28, 2022 12:00am July 26, 2023 [...] Complications of surgical procedures or medical care (8 sources) Non-healing surgical wound; Translations: [Other complications of procedures, not elsewhere classified, initial encounter] 08-24-2017 Episodic Comment on above: 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 Conditions associated with dizziness or vertigo (1 source) Benign paroxysmal positional vertigo; Translations: [Benign paroxysmal vertigo, unspecified ear] 03-13-2024 Episodic Diabetes mellitus without complication (2 sources) Impaired fasting glycemia; Translations: [Impaired fasting glucose] 04-30-2024 Episodic Disorders of lipid metabolism (1 source) Hypercholesterolemia; Translations: [Pure hypercholesterolemia, unspecified] 08-08-2024 Chronic Esophageal disorders (20 sources) Gastroesophageal reflux disease; Translations: [Gastro-esophageal reflux disease without esophagitis] Chronic Comment on above: Problem List clean-u p per request of Phys. EHR Cmte Essential hypertension (20 sources) Essential hypertension; Translations: [...] of unspecified nature of digestive system] Episodic Nonmalignant breast conditions (1 source) Breast lump; Translations: [Unspecified lump in the left breast, unspecified quadrant] 04-15-2024 Episodic Nutritional deficiencies (2 sources) Vitamin D deficiency; Translations: [Vitamin D deficiency, unspecified] Chronic Osteoarthritis (20 sources) Osteoarthritis of joint of right shoulder region; Translations: [Primary osteoarthritis, right shoulder] Chronic Osteoporosis (20 sources) Senile osteoporosis; Translations: [Age-related osteoporosis without current pathological fracture] Onset: 3 Chronic Other aftercare (4 sources) Drug therapy finding; Translations: [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] 10-30-2023 Episodic Other aftercare (3 sources) 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; Translations: [Long-term [...] duodenum] 12-21-2022 Episodic Other connective tissue disease (10 sources) Fibromyalgia; Translations: [Fibromyalgia] 10-28-2023 Episodic Other connective tissue disease (1 source) Unspecified disorder of synovium and tendon, unspecified site Episodic Other connective tissue disease (7 sources) Dupuytren's contracture; Translations: [Palmar fascial fibromatosis [Dupuytren]] 07-30-2023 Episodic Other connective tissue disease (7 sources) Triggering of digit; Translations: [Trigger finger, [...] Onset: 4 Episodic Other connective tissue disease (4 sources) Fibromyalgia; Translations: [Myalgia and myositis, unspecified] 10-30-2023 Episodic Other ear and sense organ disorders (1 source) Impacted cerumen, right ear Episodic Other gastrointestinal disorders (18 sources) Irritable bowel syndrome characterized by constipation; Translations: [Irritable bowel syndrome with constipation] 07-26-2023 Chronic Other gastrointestinal disorders (1 source) Irritable bowel syndrome with constipation Chronic Other gastrointestinal disorders (12 sources) Dysphagia; Translations: [Dysphagia, unspecified] 09-28-2022 Episodic Comment on above: Problem List clean-u p per request of Phys. EHR Cmte Other gastrointestinal disorders (4 sources) Heartburn; Translations: [Heartburn] Episodic Other gastrointestinal disorders (7 sources) Constipation; Translations: [Constipation, unspecified] Episodic Other inflammatory condition of skin (8 sources) Psoriatic arthritis; Translations: [Arthropathic psoriasis, unspecified] 09-18-2023 Chronic Other inflammatory condition of skin (4 sources) Arthropathic psoriasis, unspecified; Translations: [Psoriatic arthropathy] [...] nutritional; endocrine; and metabolic disorders (7 sources) Obesity caused by energy imbalance; Translations: [Morbid (severe) obesity due to excess calories] 07-26-2023 Chronic Other screening for suspected conditions (not mental disorders or infectious disease) (12 sources) Encounter for screening mammogram for malignant neoplasm of breast; Translations: [Encounter for screening for malignant neoplasm of cervix] Onset: 3 Episodic Other upper respiratory disease (4 sources) Sinusitis; Translations: [Allergic rhinitis, unspecified] Chronic Other upper respiratory disease (1 source) Allergic rhinitis, unspecified Chronic Other upper respiratory infections (1 source) Acute maxillary sinusitis, unspecified; Translations: [Acute maxillary sinusitis] 05-15-2024 Episodic Residual codes; unclassified (12 sources) Family history of cancer of colon; Translations: [Family history of malignant neoplasm of digestive organs] Episodic Residual codes; unclassified (1 source) Asymptomatic menopausal state; Translations: [ASYMPTOMATIC MENOPAUSAL STATE] Onset: 3 Episodic Residual codes; unclassified (8 sources) Edema of left lower limb; Translations: [Localized edema] 08-24-2017 Episodic Rheumatoid arthritis and related disease (13 sources) Inflammatory polyarthropathy; Translations: [Inflammatory polyarthropathy] Chronic [...] hip, initial encounter] Onset: Episodic Thyroid disorders (8 sources) Hypothyroidism; Translations: [Hypothyroidism, unspecified] 07-30-2023 Chronic [...] Test Name Value Interpretation [facility] SARS-CoV-2 (COVID-19) RNA THUY+probe Ql (Unsp spec) [facility] d Antimicrobial susceptibilityon 05-15-2024 SARS-CoV-2 (COVID-19) RNA THUY+probe Ql (Unsp spec) Negative [facility] No Panel Informationon 05-15 POC Influenza A (PCR) Negative [facility] POC Influenza B (PCR) Negative [facility] - Chemistry and C hemistry - challengeon 02-26-2024 Bilirubin.direct [Mass/Vol] 0.2 mg/dL 0.0-0.2 [facility] No Panel Informationon 02-25 Miscellaneous Test COMMENT . [facility] Comment on above: Test Ordered: [id number] Sedimentation Rate-WestergrenSedimentation Rate-Westergren 17 mm/hr CB Reference Range: 0-40Performed at: CB - [facility] [id number] [place], [place] [id number] Director: Natanael Banegas PhD, Phone: [phone] Basophils Auto (Bld) [#/Vol] on 12-31-2023 Basophils (Bld) [#/Vol] 0.0 10 3/uL 0.0-0.1 [facility] Basophils/100 WBC Auto (Bld) on 12-31-2023 Basophils/100 WBC (Bld) 0.5 % 0.2-2.0 [facility] Eosinophils/100 WBC Auto (Bl d)on 12-31-2023 Eosinophils/100 WBC (Bld) 4.9 % 0.9-7.0 [facility] Erythrocyte distribution wid th Auto (RBC) [Ratio]on 12-31-2023 Erythrocyte distribution width (RBC) [Ratio] 15.1 % High 11.0-15.0 [facility] Estimated glomerular filtrat ion rate (GFR) non- Americanon 12-31-2023 GFR/1.73 sq M.predicted among non-blacks MDRD (S/P/Bld) [Vol rate/Area] 55 mL/min/{1.73_m2} Low >=60 [facility] Globulin Calc (S) [Mass/Vol] on 12-31-2023 Globulin (S) [Mass/Vol] 3.2 g/dL F [facility] Hematocrit Auto (Bld) [Volum e fraction]on 12-31-2023 Hematocrit (Bld) [Volume fraction] 35.0 % Low 36.0-48.0 [facility] Hemoglobin [Mass/volume] in Bloodon 12-31-2023 Hemoglobin (Bld) [Mass/Vol] 11.4 g/dL Low 12.0-16.0 [facility] Laboratory - Chemistry and C hemistry - challengeon 12-31-2023 Albumin [Mass/Vol] 3.3 g/dL Low 3.4-5.0 [facility] ALP [Catalytic activity/Vol] 93 U/L 46-116 [facility] ALT [Catalytic activity/Vol] 31 U/L 14-59 [facility] AST [Catalytic activity/Vol] 20 U/L 15-37 [facility] Bilirubin [Mass/Vol] 0.6 mg/dL 0.2-1.0 [facility] Bilirubin.direct [Mass/Vol] 0.1 mg/dL 0.0-0.2 [facility] Creatinine [Mass/Vol] 1.00 mg/dL 0.55-1.02 [facility] GFR/1.73 sq M.predicted MDRD (S/P/Bld) [Vol rate/Area] mL/min/{1.73_m2} >=60 [facility] Protein [Mass/Vol] 6.5 g/dL 6.4-8.2 [facility] - Hematology and Cell countson 12-31-2023 ESR (Bld) [Velocity] 19 mm/h <=30 [facility] Immature granulocytes/100 WBC (Bld) 0.4 % 0.0-0.5 [facility] Leukocytes [#/volume] correc loan for nucleated erythrocytes in Blood by Automated counon 12-31-2023 WBC corrected for nucl RBC Auto (Bld) [#/Vol] 5.7 10 3/uL 4.0-11.0 [facility] Lymphocytes Auto (Bld) [#/Vo l]on 12-31-2023 Lymphocytes (Bld) [#/Vol] 1.4 10 3/uL 1.2-3.8 [facility] Lymphocytes/100 WBC Auto (Bl d)on 12-31-2023 Lymphocytes/100 WBC (Bld) 24.7 % 20.5-60.0 [facility] MCH Auto (RBC) [Entitic mass ]on 12-31-2023 MCH (RBC) [Entitic mass] 29.2 pg 26.7-34.0 [facility] MCHC Auto (RBC) [Mass/Vol]on 12-31-2023 MCHC (RBC) [Mass/Vol] 32.6 g/dL 29.9-35.2 [facility] MCV Auto (RBC) [Entitic vol] on 12-31-2023 MCV (RBC) [Entitic vol] 89.5 fL 81.0-99.0 [facility] Monocytes Auto (Bld) [#/Vol] on 12-31-2023 Monocytes (Bld) [#/Vol] 0.6 10 3/uL 0.3-0.8 [facility] Monocytes/100 WBC Auto (Bld) on 12-31-2023 Monocytes/100 WBC (Bld) 10.4 % 1.7-12.0 F [facility] Neutrophils Auto (Bld) [#/Vo l]on 12-31-2023 Neutrophils (Bld) [#/Vol] 3.4 10 3/uL 1.4-6.5 [facility] Neutrophils/100 WBC Auto (Bl d)on 12-31-2023 Neutrophils/100 WBC (Bld) 59.1 % 43.0-75.0 [facility] No Panel Informationon 12-30 Eosinophils # (Auto) 0.3 10 3/uL 0.0-0.7 [facility] Immature Granulocyte # (Auto) 0.02 10 3/uL 0.00-0.03 [facility] Platelet mean volume Auto (B ld) [Entitic vol]on 12-31-2023 Platelet mean volume (Bld) [Entitic vol] 11.7 fL 9.5-13.5 [facility] Platelets Auto (Bld) [#/Vol] on 12-31-2023 Platelets (Bld) [#/Vol] 228 10 3/uL 150-450 [facility] RBC Auto (Bld) [#/Vol]on RBC (Bld) [#/Vol] 3.91 10 6/uL Low 4.20-5.40 [facility] Serum or plasma albumin/glob ulin mass ratioon 12-31-2023 Albumin/Globulin [Mass ratio] 1.0 {ratio} [facility] Basophils Auto (Bld) [#/Vol] on 12-03-2023 Basophils (Bld) [#/Vol] 0.0 10 3/uL 0.0-0.1 [facility] Basophils/100 WBC Auto (Bld) on 12-03-2023 Basophils/100 WBC (Bld) 0.4 % 0.2-2.0 [facility] Eosinophils/100 WBC Auto (Bl d)on 12-03-2023 Eosinophils/100 WBC (Bld) 3.2 % 0.9-7.0 [facility] Erythrocyte distribution wid th Auto (RBC) [Ratio]on 12-03-2023 Erythrocyte distribution width (RBC) [Ratio] 14.5 % 11.0-15.0 [facility] Estimated glomerular filtrat ion rate (GFR) non- Americanon 12-03-2023 GFR/1.73 sq M.predicted among non-blacks MDRD (S/P/Bld) [Vol rate/Area] 59 mL/min/{1.73_m2} Low >=60 [facility] Globulin Calc (S) [Mass/Vol] on 12-03-2023 Globulin (S) [Mass/Vol] 3.6 g/dL [facility] Hematocrit Auto (Bld) [Volum e fraction]on 12-03-2023 Hematocrit (Bld) [Volume fraction] 37.9 % 36.0-48.0 [facility] Hemoglobin [Mass/volume] in Bloodon 12-03-2023 Hemoglobin (Bld) [Mass/Vol] 12.3 g/dL 12.0-16.0 [facility] Laboratory - Chemistry and C hemistry - challengeon 12-03-2023 Albumin [Mass/Vol] 3.4 g/dL 3.4-5.0 [facility] ALP [Catalytic activity/Vol] 95 U/L 46-116 [facility] ALT [Catalytic activity/Vol] 27 U/L 14-59 [facility] AST [Catalytic activity/Vol] 23 U/L 15-37 [facility] Bilirubin [Mass/Vol] 0.5 mg/dL 0.2-1.0 [facility] Bilirubin.direct [Mass/Vol] 0.1 mg/dL 0.0-0.2 [facility] Creatinine [Mass/Vol] 0.94 mg/dL 0.55-1.02 [facility] GFR/1.73 sq M.predicted MDRD (S/P/Bld) [Vol rate/Area] mL/min/{1.73_m2} >=60 [facility] Protein [Mass/Vol] 7.0 g/dL 6.4-8.2 [facility] Laboratory - Hematology and Cell countson 12-03-2023 ESR (Bld) [Velocity] 22 mm/h <=30 [facility] Immature granulocytes/100 WBC (Bld) 0.1 % 0.0-0.5 [facility] Leukocytes [#/volume] correc loan for nucleated erythrocytes in Blood by Automated counon 12-03-2023 WBC corrected for nucl RBC Auto (Bld) [#/Vol] 7.5 10 3/uL 4.0-11.0 [facility] Lymphocytes Auto (Bld) [#/Vo l]on 12-03-2023 Lymphocytes (Bld) [#/Vol] 1.6 10 3/uL 1.2-3.8 [facility] Lymphocytes/100 WBC Auto (Bl d)on 12-03-2023 Lymphocytes/100 WBC (Bld) 21.7 % 20.5-60.0 [facility] MCH Auto (RBC) [Entitic mass ]on 12-03-2023 MCH (RBC) [Entitic mass] 28.9 pg 26.7-34.0 [facility] MCHC Auto (RBC) [Mass/Vol]on 12-03-2023 MCHC (RBC) [Mass/Vol] 32.5 g/dL 29.9-35.2 [facility] MCV Auto (RBC) [Entitic vol] on 12-03-2023 MCV (RBC) [Entitic vol] 89.0 fL 81.0-99.0 [facility] Monocytes Auto (Bld) [#/Vol] on 12-03-2023 Monocytes (Bld) [#/Vol] 0.7 10 3/uL 0.3-0.8 [facility] Monocytes/100 WBC Auto (Bld) on 12-03-2023 Monocytes/100 WBC (Bld) 9.1 % 1.7-12.0 [facility] Neutrophils Auto (Bld) [#/Vo l]on 12-03-2023 Neutrophils (Bld) [#/Vol] 4.9 10 3/uL 1.4-6.5 [facility] Neutrophils/100 WBC Auto (Bl d)on 12-03-2023 Neutrophils/100 WBC (Bld) 65.5 % 43.0-75.0 [facility] No Panel Informationon 12-02 Eosinophils # (Auto) 0.2 10 3/uL 0.0-0.7 [facility] Immature Granulocyte # (Auto) 0.01 10 3/uL 0.00-0.03 [facility] Platelet mean volume Auto (B ld) [Entitic vol]on 12-03-2023 Platelet mean volume (Bld) [Entitic vol] 11.6 fL 9.5-13.5 [facility] Platelets Auto (Bld) [#/Vol] on 12-03-2023 Platelets (Bld) [#/Vol] 250 10 3/uL 150-450 [facility] RBC Auto (Bld) [#/Vol]on RBC (Bld) [#/Vol] 4.26 10 6/uL 4.20-5.40 [facility] Serum or plasma albumin/glob ulin mass ratioon 12-03-2023 Albumin/Globulin [Mass ratio] 0.9 {ratio} [facility] Basophils Auto (Bld) [#/Vol] on 11-19-2023 Basophils (Bld) [#/Vol] 0.0 10 3/uL 0.0-0.1 [facility] Basophils/100 WBC Auto (Bld) on 11-19-2023 Basophils/100 WBC (Bld) 0.3 % 0.2-2.0 [facility] Eosinophils/100 WBC Auto (Bl d)on 11-19-2023 Eosinophils/100 WBC (Bld) 1.7 % 0.9-7.0 [facility] Erythrocyte distribution wid th Auto (RBC) [Ratio]on 11-19-2023 Erythrocyte distribution width (RBC) [Ratio] 14.0 % 11.0-15.0 [facility] Estimated glomerular filtrat ion rate (GFR) non- Americanon 11-19-2023 GFR/1.73 sq M.predicted among non-blacks MDRD (S/P/Bld) [Vol rate/Area] 59 mL/min/{1.73_m2} Low >=60 [facility] Globulin Calc (S) [Mass/Vol] on 11-19-2023 Globulin (S) [Mass/Vol] 3.8 g/dL [facility] Hematocrit Auto (Bld) [Volum e fraction]on 11-19-2023 Hematocrit (Bld) [Volume fraction] 38.3 % 36.0-48.0 [facility] Hemoglobin [Mass/volume] in Bloodon 11-19-2023 Hemoglobin (Bld) [Mass/Vol] 12.2 g/dL 12.0-16.0 [facility] Laboratory - Chemistry and C hemistry - challengeon 11-19-2023 Albumin [Mass/Vol] 3.7 g/dL 3.4-5.0 [facility] ALP [Catalytic activity/Vol] 104 U/L 46-116 [facility] ALT [Catalytic activity/Vol] 24 U/L 14-59 [facility] AST [Catalytic activity/Vol] 17 U/L 15-37 [facility] Bilirubin [Mass/Vol] 0.4 mg/dL 0.2-1.0 [facility] Bilirubin.direct [Mass/Vol] 0.1 mg/dL 0.0-0.2 [facility] Creatinine [Mass/Vol] 0.94 mg/dL 0.55-1.02 [facility] GFR/1.73 sq M.predicted MDRD (S/P/Bld) [Vol rate/Area] mL/min/{1.73_m2} >=60 [facility] Protein [Mass/Vol] 7.5 g/dL 6.4-8.2 [facility] Laboratory - Hematology and Cell countson 11-19-2023 ESR (Bld) [Velocity] 22 mm/h <=30 [facility] Immature granulocytes/100 WBC (Bld) 0.2 % 0.0-0.5 [facility] Leukocytes [#/volume] correc loan for nucleated erythrocytes in Blood by Automated counon 11-19-2023 WBC corrected for nucl RBC Auto (Bld) [#/Vol] 9.3 10 3/uL 4.0-11.0 [facility] Lymphocytes Auto (Bld) [#/Vo l]on 11-19-2023 Lymphocytes (Bld) [#/Vol] 1.4 10 3/uL 1.2-3.8 [facility] Lymphocytes/100 WBC Auto (Bl d)on 11-19-2023 Lymphocytes/100 WBC (Bld) 15.3 % Low 20.5-60.0 [facility] MCH Auto (RBC) [Entitic mass ]on 11-19-2023 MCH (RBC) [Entitic mass] 27.7 pg 26.7-34.0 [facility] MCHC Auto (RBC) [Mass/Vol]on 11-19-2023 MCHC (RBC) [Mass/Vol] 31.9 g/dL 29.9-35.2 [facility] MCV Auto (RBC) [Entitic vol] on 11-19-2023 MCV (RBC) [Entitic vol] 87.0 fL 81.0-99.0 [facility] Monocytes Auto (Bld) [#/Vol] on 11-19-2023 Monocytes (Bld) [#/Vol] 0.7 10 3/uL 0.3-0.8 [facility] Monocytes/100 WBC Auto (Bld) on 11-19-2023 Monocytes/100 WBC (Bld) 7.2 % 1.7-12.0 [facility] Neutrophils Auto (Bld) [#/Vo l]on 11-19-2023 Neutrophils (Bld) [#/Vol] 7.0 10 3/uL High 1.4-6.5 [facility] Neutrophils/100 WBC Auto (Bl d)on 11-19-2023 Neutrophils/100 WBC (Bld) 75.3 % High 43.0-75.0 [facility] No Panel Informationon 11-18 Eosinophils # (Auto) 0.2 10 3/uL 0.0-0.7 [facility] Immature Granulocyte # (Auto) 0.02 10 3/uL 0.00-0.03 [facility] Platelet mean volume Auto (B ld) [Entitic vol]on 11-19-2023 Platelet mean volume (Bld) [Entitic vol] 11.4 fL 9.5-13.5 [facility] Platelets Auto (Bld) [#/Vol] on 11-19-2023 Platelets (Bld) [#/Vol] 296 10 3/uL 150-450 [facility] RBC Auto (Bld) [#/Vol]on RBC (Bld) [#/Vol] 4.40 10 6/uL 4.20-5.40 [facility] Serum or plasma albumin/glob ulin mass ratioon 11-19-2023 Albumin/Globulin [Mass ratio] 1.0 {ratio} [facility] XR chest 2V*on 09-13-2023 XR chest 2V* [facility] [address] [address] XRay Report Signed Patient: Lizzy Welsh MR#: [id number] : 1950 Acct:[id number] Age/Sex: 73 / F ADM Date: 09/13/23 Loc: ICXD Room: Type: [facility] Attending Dr: Tano Tsai MD Copies [...] Anny Powell M.D.09/13/2023 5:13 PM Dictation Location: [place] [address] Transcribed By: [facility] 09/13/231712 Dictated By: Anny Powell II, MD 09/13/231711 Signed By: 09/13/231712 Normal [facility] XR hand BI 2Von 09-13-2023 XR hand BI 2V [facility] [place] [address] XRay Report Signed Patient: iLzzy Welsh MR#: [id number] : 1950 Acct:[id number] Age/Sex: 73 / F ADM Date: 09/13/23 Loc: ICXD Room: Type: [facility] Attending Dr: Tano Tsai MD Copies [...] Anny Powell M.D.09/13/2023 5:21 PM Dictation Location: [place] [address] Transcribed By: [facility] 09/13/23 1721 Dictated By: Anny Powell II, MD 09/13/23 1719 Signed By: 09/13/23 1721 Normal [facility] Alanine aminotransferase [En zymatic activity/volume] in Serum or PlasmaOrdered By: Tano Tsai on 09-12-2023 ALT [Catalytic activity/Vol] 18 U/L 7-52 [facility] Albumin [Mass/volume] in Ser um or Plasma by Bromocresol green (BCG) dye binding methoOrdered By: Tano sTai on 09-12-2023 Albumin BCG dye [Mass/Vol] 4.2 g/dL 3.5-5.7 [facility] Alkaline phosphatase [Enzyma tic activity/volume] in Serum or PlasmaOrdered By: Tano Tsai on 09-12-2023 ALP [Catalytic activity/Vol] 82 U/L 34-104 [facility] Aspartate aminotransferase [ Enzymatic activity/volume] in Serum or PlasmaOrdered By: Tano Tsai on 09-12-2023 AST [Catalytic activity/Vol] 16 U/L 13-39 [facility] Basophils Auto (Bld) [#/Vol] Ordered By: Tano Tsai on 09-12-2023 Basophils (Bld) [#/Vol] 0.1 10*3/uL 0.0-0.2 [facility] Basophils/100 WBC Auto (Bld) Ordered By: Tano Tsai on 09-12-2023 Basophils/100 WBC (Bld) 0.7 % . [facility] Bilirubin.total [Mass/volume ] in Serum or PlasmaOrdered By: Tano Tsai on 09-12-2023 Bilirubin [Mass/Vol] 0.5 mg/dL 0.3-1.0 [facility] C reactive protein [Mass/vol ume] in Serum or PlasmaOrdered By: Tano Tsai on 09-12-2023 CRP [Mass/Vol] 2.1 mg/dL 0.0-0.5 [facility] C-Reactive Proteinon 024 C-Reactive Protein 2.1 mg/dL High 0.0-0.5 [facility] Comment on above: Result Comment: PERF ORMED BY: [place] [address] PATHOLOGIST UTILITY CLERK VICENTE MONTEZ M.D. Performed By: #### C MP, ESR, PTH, CBC, CRP #### [place] [address] [place] #### HBCAB, HBSAB, HBSAG, HCV RX PCR #### [facility] , Calcium [Mass/volume] in Ser um or PlasmaOrdered By: Tano Tsai on 09-12-2023 Calcium [Mass/Vol] 9.9 mg/dL 8.6-10.3 [facility] Carbon dioxide, total [Moles /volume] in Serum or PlasmaOrdered By: Tano Tsai on 09-12-2023 CO2 [Moles/Vol] 31.5 mmol/L 21.0-31.0 [facility] Chloride [Moles/volume] in S concha or PlasmaOrdered By: Tano Tsai on 09-12-2023 Chloride [Moles/Vol] 105 mmol/L 98-107 [facility] Complete Blood Count Auto Di ffon 09-12-2023 Basophils (Bld) [#/Vol] 0.1 10*3/uL Normal 0.0-0.2 [facility] Comment on above: Performed By: #### C MP, ESR, PTH, CBC, CRP #### [address] #### HBCAB, HBSAB, HBSAG, HCV RX PCR #### [facility] , Basophils/100 WBC (Bld) 0.7 % Normal . [facility] Comment on above: Performed By: #### C MP, ESR, PTH, CBC, CRP #### [address] #### HBCAB, HBSAB, HBSAG, HCV RX PCR #### [facility] , Eosinophils (Bld) [#/Vol] 0.3 10*3/uL Normal 0.0-0.45 [facility] Comment on above: Performed By: #### C MP, ESR, PTH, CBC, CRP #### [place] [address] [place] #### HBCAB, HBSAB, HBSAG, HCV RX PCR #### [facility] , Eosinophils/100 WBC (Bld) 3.3 % Normal . [facility] Comment on above: Performed By: #### C MP, ESR, PTH, CBC, CRP #### [place] [address] [place] #### HBCAB, HBSAB, HBSAG, HCV RX PCR #### [facility] , Erythrocyte distribution width (RBC) [Ratio] 14.8 % Normal 11.9-15.3 [facility] Comment on above: Performed By: #### C MP, ESR, PTH, CBC, CRP #### [address] #### HBCAB, HBSAB, HBSAG, HCV RX PCR #### [facility] , Hematocrit (Bld) [Volume fraction] 40.9 % Normal 34.0-46.4 [facility] Comment on above: Performed By: #### C MP, ESR, PTH, CBC, CRP #### [address] #### HBCAB, HBSAB, HBSAG, HCV RX PCR #### [facility] , Hemoglobin (Bld) [Mass/Vol] 13.2 g/dL Normal 11.8-15.4 [facility] Comment on above: Performed By: #### C MP, ESR, PTH, CBC, CRP #### [address] #### HBCAB, HBSAB, HBSAG, HCV RX PCR #### [facility] , Lymphocytes (Bld) [#/Vol] 1.9 10*3/uL Normal 1.00-4.8 [facility] Comment on above: Performed By: #### C MP, ESR, PTH, CBC, CRP #### [address] #### HBCAB, HBSAB, HBSAG, HCV RX PCR #### [facility] , Lymphocytes/100 WBC (Bld) 21.1 % Normal . [facility] Comment on above: Performed By: #### C MP, ESR, PTH, CBC, CRP #### [address] #### HBCAB, HBSAB, HBSAG, HCV RX PCR #### [facility] , MCH (RBC) [Entitic mass] 27.6 pg Normal 24.7-34.3 [facility] Comment on above: Performed By: #### C MP, ESR, PTH, CBC, CRP #### [address] #### HBCAB, HBSAB, HBSAG, HCV RX PCR #### [facility] , MCV (RBC) [Entitic vol] 85.2 fL Normal 80-100 [facility] Comment on above: Performed By: #### C MP, ESR, PTH, CBC, CRP #### [address] #### HBCAB, HBSAB, HBSAG, HCV RX PCR #### [facility] , Mean Corpuscular HGB Conc 32.4 g/dL Normal 32.0-35.0 [facility] Comment on above: Performed By: #### C MP, ESR, PTH, CBC, CRP #### [address] #### HBCAB, HBSAB, HBSAG, HCV RX PCR #### [facility] , Monocytes (Bld) [#/Vol] 1.0 10*3/uL High 0.0-0.8 [facility] Comment on above: Performed By: #### C MP, ESR, PTH, CBC, CRP #### [address] #### HBCAB, HBSAB, HBSAG, HCV RX PCR #### [facility] , Monocytes/100 WBC (Bld) 10.5 % Normal . [facility] Comment on above: Performed By: #### C MP, ESR, PTH, CBC, CRP #### [place] [address] [place] #### HBCAB, HBSAB, HBSAG, HCV RX PCR #### [facility] , Neutrophils (Bld) [#/Vol] 5.9 10*3/uL Normal 1.8-7.7 [facility] Comment on above: Performed By: #### C MP, ESR, PTH, CBC, CRP #### [address] #### HBCAB, HBSAB, HBSAG, HCV RX PCR #### [facility] , Neutrophils/100 WBC (Bld) 64.4 % Normal . [facility] Comment on above: Performed By: #### C MP, ESR, PTH, CBC, CRP #### [address] #### HBCAB, HBSAB, HBSAG, HCV RX PCR #### [facility] , NRBC% 0.2 /100{WBC} Normal 0-0.5 [facility] Comment on above: Performed By: #### C MP, ESR, PTH, CBC, CRP #### [address] #### HBCAB, HBSAB, HBSAG, HCV RX PCR #### [facility] , Platelet mean volume (Bld) [Entitic vol] 10.3 fL Normal 6.3-10.7 [facility] Comment on above: Performed By: #### C MP, ESR, PTH, CBC, CRP #### [address] #### HBCAB, HBSAB, HBSAG, HCV RX PCR #### [facility] , Platelets (Bld) [#/Vol] 253 10*3/uL Normal 150-450 [facility] Comment on above: Performed By: #### C MP, ESR, PTH, CBC, CRP #### [place] [address] [place] #### HBCAB, HBSAB, HBSAG, HCV RX PCR #### [facility] , RBC (Bld) [#/Vol] 4.80 10*6/uL Normal 3.60-5.00 [facility] Comment on above: Performed By: #### C MP, ESR, PTH, CBC, CRP #### [address] #### HBCAB, HBSAB, HBSAG, HCV RX PCR #### [facility] , WBC (Bld) [#/Vol] 9.2 10*3/uL Normal 3.8-11.6 [facility] Comment on above: Performed By: #### C MP, ESR, PTH, CBC, CRP #### [address] #### HBCAB, HBSAB, HBSAG, HCV RX PCR #### [facility] , Comprehensive Metabolic Pane mayur 09-12-2023 Albumin [Mass/Vol] 4.2 g/dL Normal 3.5-5.7 [facility] Comment on above: Performed By: #### C MP, ESR, PTH, CBC, CRP #### [address] #### HBCAB, HBSAB, HBSAG, HCV RX PCR #### [facility] , Albumin/Globulin [Mass ratio] 1.4 {ratio} Normal [facility] Comment on above: Performed By: #### C MP, ESR, PTH, CBC, CRP #### [address] #### HBCAB, HBSAB, HBSAG, HCV RX PCR #### [facility] , ALP [Catalytic activity/Vol] 82 U/L Normal 34-104 [facility] Comment on above: Performed By: #### C MP, ESR, PTH, CBC, CRP #### [place] [address] [place] #### HBCAB, HBSAB, HBSAG, HCV RX PCR #### [facility] , ALT [Catalytic activity/Vol] 18 U/L Normal 7-52 [facility] Comment on above: Performed By: #### C MP, ESR, PTH, CBC, CRP #### [place] [address] [place] #### HBCAB, HBSAB, HBSAG, HCV RX PCR #### [facility] , Anion gap [Moles/Vol] 9.7 mmol/L Normal 6.0-15.0 [facility] Comment on above: Performed By: #### C MP, ESR, PTH, CBC, CRP #### [address] #### HBCAB, HBSAB, HBSAG, HCV RX PCR #### [facility] , AST [Catalytic activity/Vol] 16 U/L Normal 13-39 [facility] Comment on above: Performed By: #### C MP, ESR, PTH, CBC, CRP #### [address] #### HBCAB, HBSAB, HBSAG, HCV RX PCR #### [facility] , Bilirubin [Mass/Vol] 0.5 mg/dL Normal 0.3-1.0 [facility] Comment on above: Performed By: #### C MP, ESR, PTH, CBC, CRP #### [address] #### HBCAB, HBSAB, HBSAG, HCV RX PCR #### [facility] , Calcium [Mass/Vol] 9.9 mg/dL Normal 8.6-10.3 [facility] Comment on above: Performed By: #### C MP, ESR, PTH, CBC, CRP #### [address] #### HBCAB, HBSAB, HBSAG, HCV RX PCR #### [facility] , Chloride [Moles/Vol] 105 mmol/L Normal 98-107 [facility] Comment on above: Performed By: #### C MP, ESR, PTH, CBC, CRP #### [address] #### HBCAB, HBSAB, HBSAG, HCV RX PCR #### [facility] , CO2 [Moles/Vol] 31.5 mmol/L High 21.0-31.0 [facility] Comment on above: Performed By: #### C MP, ESR, PTH, CBC, CRP #### [address] #### HBCAB, HBSAB, HBSAG, HCV RX PCR #### [facility] , Creatinine [Mass/Vol] 0.74 mg/dL Normal 0.60-1.20 [facility] Comment on above: Performed By: #### C MP, ESR, PTH, CBC, CRP #### [address] #### HBCAB, HBSAB, HBSAG, HCV RX PCR #### [facility] , GFR/1.73 sq M.predicted MDRD (S/P/Bld) [Vol rate/Area] mL/min/{1.73_m2} Normal [facility] Comment on above: Performed By: #### C MP, ESR, PTH, CBC, CRP #### [address] #### HBCAB, HBSAB, HBSAG, HCV RX PCR #### [facility] , Globulin (S) [Mass/Vol] 2.9 g/dL Normal [facility] Comment on above: Performed By: #### C MP, ESR, PTH, CBC, CRP #### [place] [address] [place] #### HBCAB, HBSAB, HBSAG, HCV RX PCR #### [facility] , Glucose [Mass/Vol] 99 mg/dL Normal 70-100 [facility] Comment on above: Result Comment: [facility] Glucose Reference Range is dependent on time and content of last meal. Glucose of more than 200 mg/dL in a nonstressed, ambulatory subject supports the diagnosis of Diabetes Mellitus. ADA recommended reference range Performed By: #### C MP, ESR, PTH, CBC, CRP #### [address] [place] [address] [place] #### HBCAB, HBSAB, HBSAG, HCV RX PCR #### [facility] , Potassium [Moles/Vol] 4.2 mmol/L Normal 3.5-5.1 [facility] Comment on above: Performed By: #### C MP, ESR, PTH, CBC, CRP #### [address] #### HBCAB, HBSAB, HBSAG, HCV RX PCR #### [facility] , Protein [Mass/Vol] 7.1 g/dL Normal 6.4-8.9 [facility] Comment on above: Performed By: #### C MP, ESR, PTH, CBC, CRP #### [address] #### HBCAB, HBSAB, HBSAG, HCV RX PCR #### [facility] , Sodium [Moles/Vol] 142 mmol/L Normal 136-145 [facility] Comment on above: Performed By: #### C MP, ESR, PTH, CBC, CRP #### [address] #### HBCAB, HBSAB, HBSAG, HCV RX PCR #### [facility] , Urea nitrogen [Mass/Vol] 28 mg/dL High 7-25 [facility] Comment on above: Performed By: #### C MP, ESR, PTH, CBC, CRP #### [address] #### HBCAB, HBSAB, HBSAG, HCV RX PCR #### [facility] , Creatinine [Mass/volume] in Serum or PlasmaOrdered By: Tano Tsai on 09-12-2023 Creatinine [Mass/Vol] 0.74 mg/dL 0.60-1.20 [facility] Eosinophils Auto (Bld) [#/Vo l]Ordered By: Tano Tsai on 09-12-2023 Eosinophils (Bld) [#/Vol] 0.3 10*3/uL 0.0-0.45 [facility] Eosinophils/100 WBC Auto (Bl d)Ordered By: Tano Tsai on 09-12-2023 Eosinophils/100 WBC (Bld) 3.3 % . [facility] Erythrocyte Sedimentation Ra lilo 09-12-2023 ESR (Bld) [Velocity] 26 mm/h Normal 0-29 [facility] Comment on above: Result Comment: PERF ORMED BY: [place] [address] PATHOLOGIST UTILITY CLERK VICENTE MONTEZ M.D. Performed By: #### C MP, ESR, PTH, CBC, CRP #### [address] #### HBCAB, HBSAB, HBSAG, HCV RX PCR #### [facility] , Erythrocyte distribution wid th Auto (RBC) [Ratio]Ordered By: Tano Tsai on 09-12-2023 Erythrocyte distribution width (RBC) [Ratio] 14.8 % 11.9-15.3 [facility] Erythrocyte sedimentation ra te by Photometric methodOrdered By: Tano Tsai on 09-12-2023 ESR Photometric method (Bld) [Velocity] 26 mm/hr 0-29 [facility] Globulin Calc (S) [Mass/Vol] Ordered By: Tano Tsai on 09-12-2023 Globulin (S) [Mass/Vol] 2.9 g/dL F [facility] Glucose [Mass/volume] in Ser um or PlasmaOrdered By: Tano Tsai on 09-12-2023 Glucose [Mass/Vol] 99 mg/dL 70-100 [facility] Comment on above: ADA recommended refe rence rangeRandom Glucose Reference Range is dependent on time and content of last meal. Glucose of more than 200 mg/dL in a nonstressed, ambulatory subject supports the diagnosis of Diabetes Mellitus. Hematocrit Auto (Bld) [Volum e fraction]Ordered By: Tano Tsai on 09-12-2023 Hematocrit (Bld) [Volume fraction] 40.9 % 34.0-46.4 [facility] Hemoglobin [Mass/volume] in BloodOrdered By: Tano Tsai on 09-12-2023 Hemoglobin (Bld) [Mass/Vol] 13.2 g/dL 11.8-15.4 [facility] Hep C Ab wRfx to Qnt PCRon 0 09-12-2023 Hepatitis C Virus Antibody Non-Reactive Normal Non Reactive [facility] Comment on above: Performed By: #### C MP, ESR, PTH, CBC, CRP #### [address] #### HBCAB, HBSAB, HBSAG, HCV RX [...] C MP, ESR, PTH, CBC, CRP #### [address] #### HBCAB, HBSAB, HBSAG, HCV RX PCR #### [facility] , Hepatitis B Core Antibodyon 09-12-2023 Hepatitis B Core Antibody Negative Normal Negative [facility] Comment on above: Result Comment: Perf ormed at: - [facility] [address] [id number] Seismology Technical Officer: Natanael Banegas PhD, Phone: [phone] Performed By: #### C MP, ESR, PTH, CBC, CRP ####[address]#### HBCAB, HBSAB, HBSAG, HCV RX PCR ####[facility] , Hepatitis B Surface Antibody on 09-12-2023 Hepatitis B Surface Antibody Non-Reactive Normal . [facility] Comment on above: Result Comment: Non Reactive: Inconsistent with immunity, less than 10 mIU/mL Reactive: Consistent with immunity, greater than 9.9 mIU/mL Performed By: #### C MP, ESR, PTH, CBC, CRP #### [place] [address] [place] #### HBCAB, HBSAB, HBSAG, HCV RX PCR #### [facility] , Hepatitis B Surface Antigeno n 09-12-2023 HBsAg Screen Negative Normal Negative [facility] Comment on above: Result Comment: PERF ORMED BY: [facility] [address] [place] [address] PATHOLOGIST UTILITY CLERK VICENTE MONTEZ M.D. Performed By: #### C MP, ESR, PTH, CBC, CRP ####[facility] [id number]#### HBCAB, HBSAB, HBSAG, HCV RX PCR ####[facility] , Hepatitis B virus surface Ab [Presence] in SerumOrdered By: Tano Tsai on 09-12-2023 HBV surface Ab Ql (S) Non-Reactive . [facility] Comment on above: Non Reactive: Incons istent with immunity, less than 10 mIU/mL Reactive: Consistent with immunity, greater than 9.9 mIU/mL Hepatitis B virus surface Ag [Presence] in Serum or Plasma by ImmunoassayOrdered By: Tano Tsai on 09-12-2023 HBV surface Ag IA Ql Negative Negative [facility] Hepatitis C virus IgG Ab [Pr esence] in Serum or Plasma by ImmunoassayOrdered By: Tano Tsai on 09-12-2023 HCV IgG IA Ql Non-Reactive Non Reactive [facility] Leukocytes [#/volume] correc loan for nucleated erythrocytes in Blood by Automated counOrdered By: Tano Tsai on 09-12-2023 WBC corrected for nucl RBC Auto (Bld) [#/Vol] 9.2 10*3/uL 3.8-11.6 [facility] Lymphocytes Auto (Bld) [#/Vo l]Ordered By: Tano Tsai on 09-12-2023 Lymphocytes (Bld) [#/Vol] 1.9 10*3/uL 1.00-4.8 [facility] Lymphocytes/100 WBC Auto (Bl d)Ordered By: Tano Tsai on 09-12-2023 Lymphocytes/100 WBC (Bld) 21.1 % . [facility] MCH Auto (RBC) [Entitic mass ]Ordered By: Tano Tsai on 09-12-2023 MCH (RBC) [Entitic mass] 27.6 pg 24.7-34.3 [facility] MCHC Auto (RBC) [Mass/Vol]Or dered By: Tano Tsai on 09-12-2023 MCHC (RBC) [Mass/Vol] 32.4 g/dL 32.0-35.0 [facility] MCV Auto (RBC) [Entitic vol] Ordered By: Tano Tsai on 09-12-2023 MCV (RBC) [Entitic vol] 85.2 fL 80-100 [facility] Monocytes Auto (Bld) [#/Vol] Ordered By: Tano Tsai on 09-12-2023 Monocytes (Bld) [#/Vol] 1.0 10*3/uL 0.0-0.8 [facility] Monocytes/100 WBC Auto (Bld) Ordered By: Tano Tsai on 09-12-2023 Monocytes/100 WBC (Bld) 10.5 % . [facility] Neutrophils Auto (Bld) [#/Vo l]Ordered By: Tano Tsai on 09-12-2023 Neutrophils (Bld) [#/Vol] 5.9 10*3/uL 1.8-7.7 [facility] Neutrophils/100 WBC Auto (Bl d)Ordered By: Tano Tsai on 09-12-2023 Neutrophils/100 WBC (Bld) 64.4 % . [facility] No Panel InformationOrdered By: Tano Tsai on 09-12-2023 Estimated GFR (CKD-EPI) > 60.0 mL/Min [facility] Hepatitis B Core Total Antibody Negative Negative [facility] Comment on above: Performed at: [address] [id number] Director: Natanael Banegas PhD, Phone: [phone] Hepatitis C Interpretation See comment . [facility] Comment on above: Not infected with HC V unless early or acute infection issuspected (which may be delayed in an immunocompromisedindividual), or other evidence exists to indicate HCVinfection. Pharmacy Creatinine Clearance (Chem N/A [facility] Nucleated erythrocytes [Pres ence] in Blood by Automated countOrdered By: Tano Tsai on 09-12-2023 Nucleated RBC Auto Ql (Bld) 0.2 /100{WBC} 0-0.5 [facility] Parathyrin.intact [Mass/volu me] in Serum or PlasmaOrdered By: Tano Tsai on 09-12-2023 Parathyrin.intact [Mass/Vol] 34.2 pg/mL [facility] Parathyroid Hormone Intacton 09-12-2023 Parathyroid Hormone Intact 34.2 pg/mL Normal [facility] Comment on above: Result Comment: PERF ORMED BY: [place] [address] PATHOLOGIST UTILITY CLERK VICENTE MONTEZ M.D. Performed By: #### C MP, ESR, PTH, CBC, CRP #### [place] [address] [place] #### HBCAB, HBSAB, HBSAG, HCV RX PCR #### [facility] , Platelet mean volume Auto (B ld) [Entitic vol]Ordered By: Tano Tsai on 09-12-2023 Platelet mean volume (Bld) [Entitic vol] 10.3 fL 6.3-10.7 [facility] Platelets Auto (Bld) [#/Vol] Ordered By: Tano Tsai on 09-12-2023 Platelets (Bld) [#/Vol] 253 10*3/uL 150-450 [facility] Potassium [Moles/volume] in Serum or PlasmaOrdered By: Tano Tsai on 09-12-2023 Potassium [Moles/Vol] 4.2 mmol/L 3.5-5.1 [facility] Protein [Mass/volume] in Ser um or PlasmaOrdered By: Tano Tsai on 09-12-2023 Protein [Mass/Vol] 7.1 g/dL 6.4-8.9 [facility] RBC Auto (Bld) [#/Vol]Ordere d By: Tano Tsai on 09-12-2023 RBC (Bld) [#/Vol] 4.80 10*6/uL 3.60-5.00 [facility] Serum or plasma albumin/glob ulin mass ratioOrdered By: Tano Tsai on 09-12-2023 Albumin/Globulin [Mass ratio] 1.4 {ratio} [facility] Serum or plasma anion gap de terminationOrdered By: Tano Tsai on 09-12-2023 Anion gap [Moles/Vol] 9.7 mmol/L 6.0-15.0 [facility] Sodium [Moles/volume] in Ser um or PlasmaOrdered By: Tano Tsai on 09-12-2023 Sodium [Moles/Vol] 142 mmol/L 136-145 [facility] Urea nitrogen [Mass/volume] in Serum or PlasmaOrdered By: Tano Tsai on 09-12-2023 Urea nitrogen [Mass/Vol] 28 mg/dL 7-25 [facility] WBC Auto (Bld) [#/Vol]Ordere d By: Tano Tsai on 09-12-2023 WBC (Bld) [#/Vol] 9.2 10*3/uL 3.8-11.6 [facility] Basophils Auto (Bld) [#/Vol] on 08-03-2023 Basophils (Bld) [#/Vol] 0.1 10 3/uL 0.0-0.1 [facility] Basophils/100 WBC Auto (Bld) on 08-03-2023 Basophils/100 WBC (Bld) 0.6 % 0.2-2.0 [facility] Eosinophils/100 WBC Auto (Bl d)on 08-03-2023 Eosinophils/100 WBC (Bld) 3.2 % 0.9-7.0 [facility] Erythrocyte distribution wid th Auto (RBC) [Ratio]on 08-03-2023 Erythrocyte distribution width (RBC) [Ratio] 13.7 % 11.0-15.0 [facility] Estimated glomerular filtrat ion rate (GFR) non- Americanon 08-03-2023 GFR/1.73 sq M.predicted among non-blacks MDRD (S/P/Bld) [Vol rate/Area] mL/min/{1.73_m2} >=60 [facility] Globulin Calc (S) [Mass/Vol] on 08-03-2023 Globulin (S) [Mass/Vol] 3.8 g/dL [facility] Hematocrit Auto (Bld) [Volum e fraction]on 08-03-2023 Hematocrit (Bld) [Volume fraction] 38.0 % 36.0-48.0 [facility] Hemoglobin [Mass/volume] in Bloodon 08-03-2023 Hemoglobin (Bld) [Mass/Vol] 11.9 g/dL 12.0-16.0 [facility] Laboratory - Chemistry and C hemistry - challengeon 08-03-2023 Albumin [Mass/Vol] 3.4 g/dL 3.4-5.0 [facility] ALP [Catalytic activity/Vol] 110 U/L 46-116 [facility] ALT [Catalytic activity/Vol] 21 U/L 14-59 [facility] AST [Catalytic activity/Vol] 18 U/L 15-37 [facility] Bilirubin [Mass/Vol] 0.3 mg/dL 0.2-1.0 [facility] Calcium [Mass/Vol] 8.8 mg/dL 8.5-10.1 [facility] Chloride [Moles/Vol] 103 mmol/L 98-107 [facility] CO2 [Moles/Vol] 32.4 mmol/L 21.0-32.0 [facility] Cobalamin (Vitamin B12) [Mass/Vol] 803.0 pg/mL 193.0-986.0 [facility] Creatinine [Mass/Vol] 0.88 mg/dL 0.55-1.02 [facility] GFR/1.73 sq M.predicted MDRD (S/P/Bld) [Vol rate/Area] mL/min/{1.73_m2} >=60 [facility] Glucose [Mass/Vol] 150 mg/dL 74-106 [facility] Potassium [Moles/Vol] 3.6 mmol/L 3.5-5.1 [facility] Protein [Mass/Vol] 7.2 g/dL 6.4-8.2 [facility] Sodium [Moles/Vol] 143 mmol/L 136-145 [facility] TSH Qn 1.282 m[IU]/L 0.358-3.740 [facility] Urea nitrogen [Mass/Vol] 26.0 mg/dL 7.0-18.0 [facility] Urea nitrogen/Creatinine [Mass ratio] 29.5 mg/mg [facility] Laboratory - Hematology and Cell countson 08-03-2023 Immature granulocytes/100 WBC (Bld) 0.3 % 0.0-0.5 [facility] Leukocytes [#/volume] correc loan for nucleated erythrocytes in Blood by Automated counon 08-03-2023 WBC corrected for nucl RBC Auto (Bld) [#/Vol] 8.8 10 3/uL 4.0-11.0 [facility] Lymphocytes Auto (Bld) [#/Vo l]on 08-03-2023 Lymphocytes (Bld) [#/Vol] 2.0 10 3/uL 1.2-3.8 [facility] Lymphocytes/100 WBC Auto (Bl d)on 08-03-2023 Lymphocytes/100 WBC (Bld) 22.7 % 20.5-60.0 [facility] MCH Auto (RBC) [Entitic mass ]on 08-03-2023 MCH (RBC) [Entitic mass] 27.5 pg 26.7-34.0 [facility] MCHC Auto (RBC) [Mass/Vol]on 08-03-2023 MCHC (RBC) [Mass/Vol] 31.3 g/dL 29.9-35.2 [facility] MCV Auto (RBC) [Entitic vol] on 08-03-2023 MCV (RBC) [Entitic vol] 87.8 fL 81.0-99.0 [facility] Monocytes Auto (Bld) [#/Vol] on 08-03-2023 Monocytes (Bld) [#/Vol] 0.9 10 3/uL 0.3-0.8 [facility] Monocytes/100 WBC Auto (Bld) on 08-03-2023 Monocytes/100 WBC (Bld) 9.9 % 1.7-12.0 [facility] Neutrophils Auto (Bld) [#/Vo l]on 08-03-2023 Neutrophils (Bld) [#/Vol] 5.6 10 3/uL 1.4-6.5 [facility] Neutrophils/100 WBC Auto (Bl d)on 08-03-2023 Neutrophils/100 WBC (Bld) 63.3 % 43.0-75.0 [facility] No Panel Informationon 08-02 C-Reactive Protein, Quantitative 1.82 mg/dL <=0.50 [facility] Eosinophils # (Auto) 0.3 10 3/uL 0.0-0.7 [facility] Immature Granulocyte # (Auto) 0.03 10 3/uL 0.00-0.03 [facility] Platelet mean volume Auto (B ld) [Entitic vol]on 08-03-2023 Platelet mean volume (Bld) [Entitic vol] 11.6 fL 9.5-13.5 [facility] Platelets Auto (Bld) [#/Vol] on 08-03-2023 Platelets (Bld) [#/Vol] 279 10 3/uL 150-450 [facility] RBC Auto (Bld) [#/Vol]on RBC (Bld) [#/Vol] 4.33 10 6/uL 4.20-5.40 [facility] Serum nuclear antibody titer on 08-03-2023 Nuclear Ab (S) [Titer] Negative . [facility] Comment on above: Negative <1:80 Borde rline 1:80 Positive >1:80ICAP nomenclature: AC-0For more information about Hep-2 cell patterns useANApatterns.org, the official website for theInternational Consensus on Antinuclear Antibody (ALFONZO)Patterns (ICAP).Performed at: - [facility] [id number] Director: Natanael Banegas PhD, Phone: [phone] Serum or plasma albumin/glob ulin mass ratioon 08-03-2023 Albumin/Globulin [Mass ratio] 0.9 {ratio} [facility] Serum or plasma anion gap de terminationon 08-03-2023 Anion gap [Moles/Vol] 11.2 mmol/L [facility] Serum or plasma cyclic adeno sine monophosphate measurement (moles/volume)on 08-03-2023 Adenosine monophosphate.cyclic [Moles/Vol] 3 units 0-19 [facility] Comment on above: Negative <20 Weak po sitive 20 - 39 Moderate positive 40 - 59 Strong positive >59Performed at: CB - [facility] [id number] [place], [place] [id number] Director: Natanael Banegas PhD, Phone: [phone] MR LUMBAR SPINE W AND WO CON [...] examined. Electronically Signed Out By ANNY CHU MD/[facility] By the signature on this report, the individual or group listed as making the Final Interpretation/Diagnos is certifies that they have reviewed this case. Diagnostic interpretation performed at [place] [address] Clinical History: Physician Contact Number: [phone] Ischemic Time (A): 09:35 Fixative (A): Formalin [...] submitted in toto in one cassette. 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 Refer to note in patient chart for documentation of history and physical. Providers: Gustavo Li MD (Doctor), Sara Castillo RN (Nurse), Maciel Ferrer, Gore Stitcher Referring: Gustavo Li MD Medicines: See the [...] biopsy result. 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 All rights reserved. The codes documented in this report are preliminary and upon oracle specialist review may be revised to meet current compliance requirements. Attending Participation: I personally performed the entire procedure. MD Gustavo Enamorado MD 12/12/2022 9:49:01 AM This report has been signed electronically. Number of Addenda: 0 Note Initiated On: 12/12/2022 9:15 AM Total Procedure Duration Time 0 hours 21 minutes 39 seconds [facility] Work Phone: Radiology Study observation (narrative) [facility] Work Phone: Endoscopic Ultrasound (Upper )Ordered By: Gustavo Li on 12-12-2022 [facility] Work Phone: No Panel Informationon 12-12 [employer] DO Work Phone: [email or web address] [employer] DO Work Phone: [employer] DO Work Phone: Order Reconciliationon 12-12 Order [...] day gummy Tums 750 mg daily Normal [facility] Surgical Pathology Depar tmenton 12-12-2022 [facility] Surgical Pathology Department Name LIZZY WELSH Pathologist: ANNY CHU MD Date of Procedure: 12/12/2022 Date Received: 12/12/2022 Date Reported 12/20/2022 Submitting Physician: GUSTAVO LI MD Location: OR Other External # FINAL DIAGNOSIS A. DUODENAL POLYP, BIOPSY: -- SMALL INTESTINAL MUCOSA DEMONSTRATING DILATED LYMPHATIC VESSELS, NO DYSPLASIA IDENTIFIED. Note: Multiple deeper levels were examined. Electronically Signed Out By ANNY CHU MD/[facility] By the signature on this report, the individual or group listed as making the Final Interpretation/Diagnos is certifies that they have reviewed this case. Diagnostic interpretation performed at [place] [address] Clinical History: Physician Contact Number: [phone] Ischemic Time (A): 09:35 Fixative (A): Formalin [...] submitted in toto in one cassette. mrs/12/13/2022 [facility] Department of Pathology [address] [place] [address] Normal [facility] Comment on above: Performed By: #### U HCS #### [facility] Surgical Pathology Department [address] [place] [address] Upper EUSon 12-12-2022 Upper EUS PATIENTNAME Patient Name: Lizzy Welsh EXAMDATE Procedure Date: 12/12/2022 9:15 AM PATIENTID PATIENTACCOUNTNUM PATIENTDOB Date of : 1950 ADMITTYPE Admit Type: Outpatient PATIENTROOM Site: [facility] 1 ETHNICITY Ethnicity: Not or RACE Race: White PROVDR Attending MD: Gustavo Li MD, [id number] ENDOPROCEDURENAME Procedure: Upper EUS INDICATION Indications: Duodenal mucosal mass/polyp found on endoscopy, 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 Refer to note in patient chart for documentation of history and physical. PRIMARYPROVIDER Providers: Gustavo Li MD (Doctor), Sara Castillo RN (Nurse), Maciel Ferrer, Gore Stitcher EDREFPROVIDER Referring: Gustavo Li MD CURRENT_MEDS Medicines: [...] result. 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 All rights reserved. The codes documented in this report are preliminary and upon oracle specialist review may be revised to meet current compliance requirements. ATTDRPART Attending Participation: I personally performed the entire procedure. SIGNATURENAME MD Gustavo Enamorado MD SIGNATUREDATE 12/12/2022 9:49:01 AM SIGNATUREONFILEIND This report has been signed electronically. NUMADDENDA Number of Addenda: 0 INITIATEDON Note Initiated On: 12/12/2022 9:15 AM TOTPROCTIME Total Procedure Duration Time 0 hours 21 minutes 39 seconds Normal [facility] Mayur 09-28-2022 L -- ---- Specimen: [id number] Received: 09/28/22 Status: SALVADOR Halldov Num: [id number] Spec Type: Surgical Subm Dr: Niurka Oliveira MD Tissues: A Duodenum - Biopsy (DUODENUM BX) B Esophagus Biopsy (ESOPHABEAL BX) Procedures: HE/4, Gross/Micro L4/2 ---- Age/ Patient Sex Location Account Attending Physician ---- Lizzy Welsh 72/F [id number] Niurka Oliveira MD ---- SPEC NUM: [id number] RECD: 09/28/22 STATUS: SALVADOR LEILANI NUM: [id number] ELVA: 09/28/22- [facility] DR: Niurka Oliveira MD ENTERED: 09/28/[address]: SPEC [...] one cassette labeled C1. ---- ---- Specimen: [id number] Received: 09/28/22 Status: SALVADOR Leilani Num: [id number] Spec Type: Surgical Subm Dr: Niurka Oliveira MD Tissues: A Duodenum - Biopsy (DUODENUM BX) B Esophagus Biopsy (ESOPHABEAL BX) Procedures: HE/4, Gross/Micro L4/2 ---- Patient: Lizzy Welsh [id number] (Continued) ---- Signed (signature on file) Baylee Newton MD 09/29/22 1009 Normal [facility] ZAK - TSHon 07-19-2022 TSH 1.271 uIU/mL Normal 0.358-3.740 [facility] Comment on above: Performed By: #### D ATTSH #### [facility] [address] [place] [address] Dr. Gertrudis Peres TSH RANGE SEE BELOW Normal [facility] Comment on above: Result Comment: <0.3 4 UIU/ml HYPERTHYROID 0.34-5.60 UIU/ml EUTHYROID >5.60 UIU/ml HYPOTHYROID Performed By: #### D ATTSH #### [facility] [address] [place] [address] Dr. Gertrudis Peres ZAK - VITAMIN Don 07-19-2022 VIT D 25-OH 26.5 ng/mL Normal [facility] Comment on above: Performed By: #### D ATVITD #### [facility] [address] [place] [address] Dr. Gertrudis Peres VIT D RANGES SEE BELOW Normal [facility] Comment on above: Result Comment: <20 ng/mL Vit D deficient 20 - <30 ng/mL Vit D insufficient 30 - 100 ng/mL Vit D sufficient >100 ng/mL Potential Toxicity Performed By: #### D ATVITD #### [facility] [address] [place] [address] Dr. Gertrudis Peres MG MAMM SCREEN 3D MANDY CADon 06-13-2022 MG MAMM SCREEN 3D MANDY CAD Patient: LIZYZ WELSH Exam Date: 06/13/2022 : 1950 Gender:F Ordering : DR MCKINLEY ALFARO D.O. Admission #: [id number] Family : Order #: [id number] CLICK HERE TO VIEW EXAM RADIOLOGY REPORT [...] No Treatments None Family Cancers None LOCATION: [facility] BREAST COMPOSITION: Scattered areas fibroglandular density. [...] M.D. on 06/14/2022 at 11:22 Normal [facility] XR DEXA BONE DENSITYon 06-13 XR DEXA [...] by: TIFFANY ROSE Date: 2022-06-13 14:[address] [facility] PAP ACOG PANEL 2: 30 to 65on 06-10-[address] [facility] Comment on above: Performed By: #### [id number] #### [facility] [address] [place] [address] Dr. Gertrudis Peres Age Gdln ACOG Testing Comment [facility] Comment on above: Result Comment: <21 or >65 or no age provided Performed By: #### 4 [id number] #### [facility] [address] [place] [address] Dr. Gertrudis Peres DIAGNOSIS: Comment [facility] Comment on above: Result Comment: NEGA TIVE FOR INTRAEPITHELIAL LESION OR MALIGNANCY. Performed By: #### 4 [id number] #### [facility] [address] [place] [address] Dr. Gertrudis Peres Methodology: Comment [facility] Comment on above: Result Comment: This liquid based ThinPrep(R) pap test was screened with the use of an image guided system. Performed By: #### 4 [id number] #### [facility] [address] [place] [address] Dr. Gertrudis Peres Note: Comment [facility] Comment on above: Result Comment: The Pap smear is a screening test designed to aid in the detection of premalignant and malignant conditions of the uterine cervix. It is not a diagnostic procedure and should not be used as the sole means of detecting cervical cancer. Both false-positive and false-negative reports do occur. . Performed By: #### 4 [id number] #### [facility] [address] [place] [address] Dr. Gertrudis Peres Performed by: Comment Normal [facility] Comment on above: Result Comment: [employer] (ASCP) Performed By: #### 4 [id number] #### [facility] [address] [place] [address] [address] Gertrudis Peres Specimen adequacy: Comment Normal [facility] Comment on above: Result Comment: Sati sfactory for evaluation. Endocervical and/or squamous metaplastic cells (endocervical component) are present. Performed By: #### 4 [id number] #### [facility] [address] [place] [address] [address] Gertrudis Peres XR HIPS MANDY 5V [...] by: NICANOR NAQVI Date: 2022-05-03 16:[address] [facility] CBC AUTO DIFFon 03-31-2022 BASO # 0.0 103/ul Normal 0.0-0.1 [facility] Comment on above: Performed By: #### C BC #### [facility] [address] [place] [address] Dr. Gertrudis Peres Basophils/100 WBC (Bld) 0.5 % Normal 0.2-2.0 [facility] Comment on above: Performed By: #### C BC #### [facility] [address] [place] [address] [address] Gertrudis Peres EO # 0.3 103/ul Normal 0.0-0.7 [facility] Comment on above: Performed By: #### C BC #### [facility] [address] [place] [address] Dr. Gertrudis Peres Eosinophils/100 WBC (Bld) 4.3 % Normal 0.9-7.0 [facility] Comment on above: Performed By: #### C BC #### [facility] [address] [place] [address] Dr. Gertrudis Peres Erythrocyte distribution width (RBC) [Ratio] 13.2 % Normal 11.0-15.0 [facility] Comment on above: Performed By: #### C BC #### [facility] [address] [place] [address] Dr. Gertrudis Peres Hematocrit (Bld) [Volume fraction] 37.9 % Normal 36.0-48.0 [facility] Comment on above: Performed By: #### C BC #### [facility] [address] [place] [address] Dr. Gertrudis Peres Hemoglobin (Bld) [Mass/Vol] 12.7 g/dL Normal 12.0-16.0 [facility] Comment on above: Performed By: #### C BC #### [facility] [address] [place] [address] Dr. Gertrudis Peres IG # 0.02 10e3/ul Normal 0.00-0.03 [facility] Comment on above: Performed By: #### C BC #### [facility] [address] [place] [address] Dr. Gertrudis Peres IG % 0.3 % Normal 0.0-0.5 [facility] Comment on above: Performed By: #### C BC #### [facility] [address] [place] [address] Dr. Gertrudis Peres LYMPH # 1.7 103/ul Normal 1.2-3.8 [facility] Comment on above: Performed By: #### C BC #### [facility] [address] [place] [address] Dr. Gertrudis Peres Lymphocytes/100 WBC (Bld) 26.4 % Normal 20.5-60.0 [facility] Comment on above: Performed By: #### C BC #### [facility] [address] [place] [address] Dr. Gertrudis Peres MANUAL DIFF REQ NO Normal [facility] Comment on above: Performed By: #### C BC #### [facility] [address] [place] [address] Dr. Gertrudis Peres MCH (RBC) [Entitic mass] 28.6 pg Normal 26.7-34.0 [facility] Comment on above: Performed By: #### C BC #### [facility] [address] [place] [address] Dr. Gertrudis Peres MCHC (RBC) [Mass/Vol] 33.5 g/dL Normal 29.9-35.2 [facility] Comment on above: Performed By: #### C BC #### [facility] [address] [place] [address] Dr. Gertrudis Peres MCV (RBC) [Entitic vol] 85.4 fL Normal 81.0-99.0 [facility] Comment on above: Performed By: #### C BC #### [facility] [address] [place] [address] Dr. Gertrudis Peres MONO # 0.5 103/ul Normal 0.3-0.8 [facility] Comment on above: Performed By: #### C BC #### [facility] [address] [place] [address] Dr. Gertrudis Peres Monocytes/100 WBC (Bld) 8.1 % Normal 1.7-12.0 [facility] Comment on above: Performed By: #### C BC #### [facility] [address] [place] [address] Dr. Gertrudis Peres NEUT # 3.9 103/ul Normal 1.4-6.5 [facility] Comment on above: Performed By: #### C BC #### [facility] [address] [place] [address] Dr. Gertrudis Peres Neutrophils/100 WBC (Bld) 60.4 % Normal 43.0-75.0 [facility] Comment on above: Performed By: #### C BC #### [facility] [address] [place] [address] Dr. Gertrudis Peres Platelet mean volume (Bld) [Entitic vol] 11.3 fL Normal 9.5-13.5 [facility] Comment on above: Performed By: #### C BC #### [facility] [address] [place] [address] Dr. Gertrudis Peres PLT 215 103/ul Normal 150-450 [facility] Comment on above: Performed By: #### C BC #### [facility] [address] [place] [address] Dr. Gertrudis Peres RBC 4.44 106/ul Normal 4.20-5.40 [facility] Comment on above: Performed By: #### C BC #### [facility] [address] [place] [address] Dr. Gertrudis Peres WBC 6.5 103/ul Normal 4.0-11.0 [facility] Comment on above: Performed By: #### C BC #### [facility] [address] [place] [address] Dr. Gertrudis Peres PROF 14(COMP METB)on 022 Albumin [Mass/Vol] 3.7 g/dL Normal 3.4-5.0 [facility] Comment on above: Performed By: #### C MP #### [facility] [address] [place] [address] Dr. Gertrudis Peres Albumin/Globulin [Mass ratio] 1.1 {ratio} Normal [facility] Comment on above: Performed By: #### C MP #### [facility] [address] [place] [address] Dr. Gertrudis Peres ALP [Catalytic activity/Vol] 112 U/L Normal 46-116 [facility] Comment on above: Performed By: #### C MP #### [facility] [address] [place] [address] Dr. Gertrudis Peres ALT [Catalytic activity/Vol] 23 U/L Normal 14-59 [facility] Comment on above: Performed By: #### C MP #### [facility] [address] [address] [address] Gertrudis Peres Anion gap [Moles/Vol] 7.1 mmol/L Normal [facility] Comment on above: Performed By: #### C MP #### [facility] [address] [address] [address] Gertrudis Peres AST [Catalytic activity/Vol] 18 U/L Normal 15-37 [facility] Comment on above: Performed By: #### C MP #### [facility] [address] [address] [address] Gertrudis Peres Bilirubin [Mass/Vol] 0.4 mg/dL Normal 0.2-1.0 [facility] Comment on above: Performed By: #### C MP #### [facility] [address] [address] [address] Gertrudis Peres Calcium [Mass/Vol] 8.6 mg/dL Normal 8.5-10.1 [facility] Comment on above: Performed By: #### C MP #### [facility] [address] [address] [address] Gertrudis Peres Chloride [Moles/Vol] 105 mmol/L Normal 98-107 [facility] Comment on above: Performed By: #### C MP #### [facility] [address] [address] [address] Gertrudis Peres CO2 [Moles/Vol] 34.0 mmol/L Critically high 21.0-32.0 [facility] Comment on above: Performed By: #### C MP #### [facility] [address] [address] [address] Gertrudis Peres Creatinine [Mass/Vol] 0.80 mg/dL Normal 0.55-1.02 [facility] Comment on above: Performed By: #### C MP #### [facility] [address] [address] [address] Gertrudis Peres EGFR-AF CHADIAN >60 Normal >=60 [facility] Comment on above: Performed By: #### C MP #### [facility] [address] [address] [address] Gertrudis Peres EGFR-NON AF CHADIAN >60 Normal >=60 [facility] Comment on above: Performed By: #### C MP #### [facility] [address] [address] [address] Gertrudis Peres Globulin (S) [Mass/Vol] 3.5 g/dL Normal [facility] Comment on above: Performed By: #### C MP #### [facility] [address] [address] [address] Gertrudis Peres Glucose [Mass/Vol] 119 mg/dL Critically high 74-106 [facility] Comment on above: Performed By: #### C MP #### [facility] [address] [place] [address] Dr. Gertrudis Peres Potassium [Moles/Vol] 3.1 mmol/L Critically low 3.5-5.1 [facility] Comment on above: Performed By: #### C MP #### [facility] [address] [place] [address] Dr. Gertrudis Peres Protein [Mass/Vol] 7.2 g/dL Normal 6.4-8.2 [facility] Comment on above: Performed By: #### C MP #### [facility] [address] [place] [address] Dr. Gertrudis Peres Sodium [Moles/Vol] 143 mmol/L Normal 136-145 [facility] Comment on above: Performed By: #### C MP #### [facility] [address] [place] [address] Dr. Gertrudis Peres Urea nitrogen [Mass/Vol] 24.0 mg/dL Critically high 7.0-18.0 [facility] Comment on above: Performed By: #### C MP #### [facility] [address] [place] [address] Dr. Gertrudis Peres Urea nitrogen/Creatinine [Mass ratio] 30.0 mg/mg Normal [facility] Comment on above: Performed By: #### C MP #### [facility] [address] [place] [address] Dr. Gertrudis Peres US SINGLE QUAD UMBILon [...] TIFFANY ROSE Date: 2021-09-29 14:52 Normal [facility] CBC with Diffon 10-04-2018 Abs. Basophil 0.05 k/uL Normal 0.00-0.20 [facility] Comment on above: Performed By: #### C MPX, CDP #### [facility] [address] [place] [address] Dr. [place], [address] [place] [address] Seismology Technical Officer: Peter Conklin MD Abs.Imm.Granulocyte <0.03 Normal 0.00-0.30 [facility] Comment on above: Performed By: #### C MPX, CDP #### [address] [place], [facility]83 Seismology Technical Officer: Peter Conklin MD Abs.Neutrophil (Seg) 4.64 k/uL Normal 1.50-8.10 [facility] Comment on above: Performed By: #### C MPX, CDP #### [facility] [address] [place] [address] [place] [address] Seismology Technical Officer: Peter Conklin MD Basophils/100 WBC (Bld) 1 % Normal 0-2 [facility] Comment on above: Performed By: #### C MPX, CDP #### [facility] [address] [place], [place] [id number] Seismology Technical Officer: Peter Conklin MD Eosinophils #/vol (Bld) 0.35 10*3/uL Normal 0.00-0.44 [facility] Comment on above: Performed By: #### C MPX, CDP #### [facility] [address] [place], [place] [id number] Seismology Technical Officer: Peter Conklin MD Eosinophils/100 WBC (Bld) 4 % Normal 1-4 [facility] Comment on above: Performed By: #### C MPX, CDP #### [facility] [address] [place], [facility]83 Seismology Technical Officer: Pteer Conklin MD Erythrocyte distribution width Ratio (RBC) 13.8 % Normal 11.8-14.4 [facility] Comment on above: Performed By: #### C MPX, CDP #### [address] [place], [facility]83 Seismology Technical Officer: Peter Conklin MD Hematocrit Volume Fraction (Bld) 44.8 % Normal 36.3-47.1 [facility] Comment on above: Performed By: #### C MPX, CDP #### [address] [place], [facility]83 Seismology Technical Officer: Peter Conklin MD Hemoglobin mass conc (Bld) 14.1 g/dL Normal 11.9-15.1 [facility] Comment on above: Performed By: #### C MPX, CDP #### [facility] [address] [place], [facility]83 Seismology Technical Officer: Peter Conklin MD Immature granulocytes #/vol (Bld) 0 % Normal 0 [facility] Comment on above: Performed By: #### C MPX, CDP #### [facility] [address] [place] [address] Seismology Technical Officer: Peter Conklin MD Lymphocytes #/vol (Bld) 2.23 10*3/uL Normal 1.10-3.70 [facility] Comment on above: Performed By: #### C MPX, CDP #### [facility] [address] [place], [place] [id number] Seismology Technical Officer: Peter Conklin MD Lymphocytes/100 WBC (Bld) 27 % Normal 24-43 [facility] Comment on above: Performed By: #### C MPX, CDP #### [facility] [address] [place], [place] 425[address]83 Seismology Technical Officer: Peter Conklin MD MCH Entitic mass (RBC) 27.8 pg Normal 25.2-33.5 [facility] Comment on above: Performed By: #### C MPX, CDP #### [facility] [address] [place] [address] Seismology Technical Officer: Peter Conklin MD MCHC mass conc (RBC) 31.5 g/dL Normal 28.4-34.8 [facility] Comment on above: Performed By: #### C MPX, CDP #### [facility] [address] [place], [place] 116[address]83 Seismology Technical Officer: Peter Conklin MD MCV Entitic volume (RBC) 88.4 fL Normal 82.6-102.9 [facility] Comment on above: Performed By: #### C MPX, CDP #### [facility] [address] [place], [place] 5238383 Seismology Technical Officer: Peter Conklin MD Monocytes #/vol (Bld) 0.84 10*3/uL Normal 0.10-1.20 [facility] Comment on above: Performed By: #### C MPX, CDP #### [facility] [address] [place] [address] Seismology Technical Officer: Peter Conklin MD Monocytes/100 WBC (Bld) 10 % Normal 3-12 [facility] Comment on above: Performed By: #### C MPX, CDP #### [facility] [address] [place], [place] 23[address]83 Seismology Technical Officer: Peter Conklin MD Neutrophil (Seg) 58 % Normal 36-65 [facility] Comment on above: Performed By: #### C MPX, CDP #### [facility] [address] [place] [address] Seismology Technical Officer: Peter Conklin MD NRBC Automated 0.0 per 100 WBC Normal 0.0 [facility] Comment on above: Performed By: #### C MPX, CDP #### [facility] [address] [place], [place] [id number] Seismology Technical Officer: Peter Conklin MD Platelet mean volume Entitic volume (Bld) 11.7 fL Normal 8.1-13.5 [facility] Comment on above: Performed By: #### C MPX, CDP #### [facility] [address] [place] [address] Seismology Technical Officer: Peter Conklin MD Platelets #/vol (Bld) 269 10*3/uL Normal 138-453 [facility] Comment on above: Performed By: #### C MPX, CDP #### [address] [place], [place] [address]49883 Seismology Technical Officer: Peter Conklin MD RBC #/vol (Bld) 5.07 10*6/uL Normal 3.95-5.11 [facility] Comment on above: Performed By: #### C MPX, CDP #### [facility] [address] [place], [place] 301[address]83 Seismology Technical Officer: Peter Conklin MD WBC #/vol (Bld) 8.1 10*3/uL Normal 3.5-11.3 [facility] Comment on above: Performed By: #### C MPX, CDP #### [facility] [address] [place] [address] Seismology Technical Officer: Peter Conklin MD Auto Diff Performed NOT REPORTED Normal [facility] Comment on above: Performed By: #### C MPX, CDP #### [facility] [address] [place], [place] [phone] Seismology Technical Officer: Peter Conklin MD Platelets #/vol (Bld) NOT REPORTED Normal [facility] Comment on above: Performed By: #### C MPX, CDP #### [facility] [address] [place], [place] 576[address]83 Seismology Technical Officer: Peter Conklin MD RBC morphology finding Nom (Bld) NOT REPORTED Normal [facility] Comment on above: Performed By: #### C MPX, CDP #### [facility] [address] [place] [address] Seismology Technical Officer: Peter Conklin MD WBC Morphology NOT REPORTED Normal [facility] Comment on above: Performed By: #### C MPX, CDP #### [facility] [address] [place], [place] [phone] Seismology Technical Officer: Peter Conklin MD CT ABDOMEN PELVIS WO [...] MD 10/04/18 Final result Normal [facility] Comp Metabolic Pr/rfx MGon 0 10-04-2018 (cont.) Normal [facility] Comment on above: Result Comment: Aver age GFR for 60-69 years old: 85 mL/min/1.73sq m Chronic Kidney Disease: <60 mL/min/1.73sq m Kidney failure: <15 mL/min/1.73sq m eGFR calculated using average adult body mass. Additional eGFR calculator available at: http://www.[employer]/multiple_crcl_2012.htm Performed By: #### C MPX, CDP #### [facility] [address] [place] [address] Seismology Technical Officer: Peter Conklin MD Albumin mass conc 4.3 g/dL Normal 3.5-5.2 [facility] Comment on above: Performed By: #### C MPX, CDP #### [facility] [address] [place] [address] Seismology Technical Officer: Peter Conklin MD Albumin/Globulin mass ratio 1.2 {ratio} Normal 1.0-2.5 [facility] Comment on above: Performed By: #### C MPX, CDP #### [facility] [address] [place] [address] Seismology Technical Officer: Peter Conklin MD Alkaline Phos 184 U/L High 35-104 [facility] Comment on above: Performed By: #### C MPX, CDP #### [facility] [address] [place], [place] 118[address]83 Seismology Technical Officer: Peter Conklin MD ALT enzyme act/vol 16 U/L Normal 5-33 [facility] Comment on above: Performed By: #### C MPX, CDP #### [facility] [address] [place], [place] [phone] Seismology Technical Officer: Peter Conklin MD Anion gap molar conc 13 mmol/L Normal 9-17 [facility] Comment on above: Performed By: #### C MPX, CDP #### [facility] [address] [place], [place] [phone] Seismology Technical Officer: Peter Conklin MD AST enzyme act/vol 20 U/L Normal <32 [facility] Comment on above: Performed By: #### C MPX, CDP #### [facility] [address] [place], [place] 9[address]83 Seismology Technical Officer: Peter Conklin MD Bilirubin Ql (U) 0.36 mg/dL Normal 0.3-1.2 [facility] Comment on above: Performed By: #### C MPX, CDP #### [facility] [address] [place], [place] 7605883 Seismology Technical Officer: Peter Conklin MD BUN/CRE Ratio 53 High 9-20 [facility] Comment on above: Performed By: #### C MPX, CDP #### [facility] [address] [place], [place] 226[address]83 Seismology Technical Officer: Peter Conklin MD Calcium mass conc 9.2 mg/dL Normal 8.6-10.4 [facility] Comment on above: Performed By: #### C MPX, CDP #### [facility] [address] [place], [place] 3617383 Seismology Technical Officer: Peter Conklin MD Chloride molar conc 103 mmol/L Normal 98-107 [facility] Comment on above: Performed By: #### C MPX, CDP #### [facility] [address] [place] [address] Seismology Technical Officer: Peter Conklin MD CO2 molar conc 25 mmol/L Normal 20-31 [facility] Comment on above: Performed By: #### C MPX, CDP #### [facility] [address] [place], [place] [phone] Seismology Technical Officer: Peter Conklin MD Creatinine mass conc 0.60 mg/dL Normal 0.50-0.90 [facility] Comment on above: Performed By: #### C MPX, CDP #### [facility] [address] [place], [place] 3094383 Seismology Technical Officer: Peter Conklin MD GFR, Amer >60 Normal >60 [facility] Comment on above: Performed By: #### C MPX, CDP #### [facility] [address] [place], [place] 284[address]3 Seismology Technical Officer: Peter Conklin MD GFR,non Amer >60 Normal >60 [facility] Comment on above: Performed By: #### C MPX, CDP #### [facility] [address] [place], [place] 6300383 Seismology Technical Officer: Peter Conklin MD Glucose mass conc 123 mg/dL High 70-99 [facility] Comment on above: Performed By: #### C MPX, CDP #### [facility] [address] [place], [place] 532[address]83 Seismology Technical Officer: Peter Conklin MD Potassium molar conc 4.0 mmol/L Normal 3.7-5.3 [facility] Comment on above: Performed By: #### C MPX, CDP #### [facility] [address] [place], [place] [address]83 Seismology Technical Officer: Peter Conklin MD Protein mass conc 7.8 g/dL Normal 6.4-8.3 [facility] Comment on above: Performed By: #### C MPX, CDP #### [facility] [address] [place], [place] [address]83 Seismology Technical Officer: Peter Conklin MD Sodium molar conc 141 mmol/L Normal 135-144 [facility] Comment on above: Performed By: #### C MPX, CDP #### [facility] [address] [place], [place] 710[address]83 Seismology Technical Officer: Peter Conklin MD Staging: Normal [facility] Comment on above: Result Comment: Stag e 1: Some kidney damage normal GFR Stage 2: Mild kidney damage GFR 60-89 Stage 3: Moderate kidney damage GFR 30-59 Stage 4: Severe kidney damage GFR 15-29 Stage 5: Severe kidney damage GFR <15 ESRD - chronic treatment by dialysis or transplant Performed By: #### C MPX, CDP #### [facility] [address] [place], [place] [address]65[address]83 Seismology Technical Officer: Peter Conklin MD Urea nitrogen mass conc 32 mg/dL High 8-23 [facility] Comment on above: Performed By: #### C MPX, CDP #### [facility] [address] [place], [place] 825[address]83 Seismology Technical Officer: Peter Conklin MD Urinalysis, Routineon 2018 Acetoacetic Acid,Ur Negative Normal NEG [facility] Comment on above: Performed By: #### U A, UMICAO #### [facility] [address] [place], [place] [phone] Seismology Technical Officer: Peter Conklin MD Bilirubin, SemiQt,Ur Negative Normal NEG [facility] Comment on above: Performed By: #### U A, UMICAO #### [facility] [address] [place], [place] [phone] Seismology Technical Officer: Peter Conklin MD Color Nom (U) YELLOW Normal YEL [facility] Comment on above: Performed By: #### U A, UMICAO #### [facility] [address] [place] [address] Seismology Technical Officer: Peter Conklin MD Glucose,Semi-qnt,Ur Negative Normal [facility] Comment on above: Performed By: #### U A, UMICAO #### [facility] [address] [place] [address] Seismology Technical Officer: Peter Conklin MD Hemoglobin, Ur 3+ Abnormal NEG [facility] Comment on above: Performed By: #### U A, UMICAO #### [facility] [address] [place] [address] Seismology Technical Officer: Peter Conklin MD Leuckocyte Esterase SMALL Abnormal [facility] Comment on above: Performed By: #### U A, UMICAO #### [facility] [address] [place] [address] Seismology Technical Officer: Peter Conklin MD Nitrite,Ur Negative Normal [facility] Comment on above: Performed By: #### U A, UMICAO #### [facility] [address] [place] [address] Seismology Technical Officer: Peter Conklin MD PH,Ur 5.5 Normal 5.0-9.0 [facility] Comment on above: Performed By: #### U A, UMICAO #### [facility] [address] [place] [address] Seismology Technical Officer: Peter Conklin MD Protein mass conc (U) TRACE Abnormal NEG [facility] Comment on above: Performed By: #### U A, UMICAO #### [facility] [address] [place] [address] Seismology Technical Officer: Peter Conklin MD Spec. Mccammon,Ur >1.030 High 1.010-1.020 [facility] Comment on above: Performed By: #### U A, UMICAO #### [facility] [address] [place], [place] 8118383 Seismology Technical Officer: Peter Conklin MD Turbidity SLIGHTLY CLOUDY Abnormal CLEAR [facility] Comment on above: Performed By: #### U A, UMICAO #### [facility] [address] [place] [address] Seismology Technical Officer: Peter Conklin MD Urobilinogen,Ur Normal Normal NORM [facility] Comment on above: Performed By: #### U A, UMICAO #### [facility] [address] [place] [address] Seismology Technical Officer: Peter Conklin MD Comment NOT REPORTED Normal [facility] Comment on above: Performed By: #### U A, UMICAO #### [facility] [address] [place] [address] Seismology Technical Officer: Peter Conklin MD Urinalysis,Microon 9 ----- Normal [facility] Comment on above: Performed By: #### U A, UMICAO #### [facility] [address] [place] [address] Seismology Technical Officer: Peter Conklin MD Bacteria LM.HPF #/area (Urine sed) TRACE Abnormal NONE [facility] Comment on above: Performed By: #### U A, UMICAO #### [facility] [address] [place] [address] Seismology Technical Officer: Peter Conklin MD Epithelial cells LM.HPF #/area (Urine sed) 2 TO 5 Normal 0-25 [facility] Comment on above: Performed By: #### U A, UMICAO #### [facility] [address] [place] [address] Seismology Technical Officer: Peter Conklin MD Mucus Strands TRACE Abnormal NONE [facility] Comment on above: Performed By: #### U A, UMICAO #### [facility] [address] [place] [address] Seismology Technical Officer: Peter Conklin MD RBC #/vol (U) 50 TO 100 Normal 0-2 [facility] Comment on above: Performed By: #### U A, UMICAO #### [facility] [address] [place], [place] [place] [address] Seismology Technical Officer: Peter Conklin MD WBC #/vol (U) 2 TO 5 Normal 0-5 [facility] Comment on above: Performed By: #### U A, UMICAO #### [facility] [address] [place], [place] [address] Seismology Technical Officer: Peter Conklin MD Amorphous sediment LM Ql (Urine sed) NOT REPORTED Normal [facility] Comment on above: Performed By: #### U A, UMICAO #### [facility] [address] [place] [id number] Seismology Technical Officer: Peter Conklin MD Casts LM.LPF #/area (Urine sed) NOT REPORTED Normal [facility] Comment on above: Performed By: #### U A, UMICAO #### [facility] [address] [place] [address] Seismology Technical Officer: Peter Conklin MD Crystals LM Nom (Urine sed) NOT REPORTED Normal [facility] Comment on above: Performed By: #### U A, UMICAO #### [facility] [address] [place] [address] Seismology Technical Officer: Peter Conklin MD Epithelial, Renal NOT REPORTED Normal 0 [facility] Comment on above: Performed By: #### U A, UMICAO #### [facility] [address] [place] [id number] Seismology Technical Officer: Peter Conklin MD Other Observations NOT REPORTED Normal NREQ [facility] Comment on above: Performed By: #### U A, UMICAO #### [facility] [address] [place] [address] Seismology Technical Officer: Peter Conklin MD Trichomonas NOT REPORTED Normal NONE [facility] Comment on above: Performed By: #### U A, TERESAO #### [facility] [address] [place], [place] [id number] Seismology Technical Officer: Peter Conklin MD Yeast LM Ql (Urine sed) NOT REPORTED Normal NONE [facility] Comment on above: Performed By: #### U A, TERESAO #### [facility] [address] [place], [place] [id number] Seismology Technical Officer: Peter Conklin MD Vital Signs Date Time Vital Sign Value Performing Clinician Facility 08-08-2024 08:40-0400 Body height 161.29 cm [facility] 08-08-2024 08:40-0400 Body mass index (BMI) [Ratio] 35.9 kg/m2 [facility] 08-08-2024 08:40-0400 Body weight 93.55 kg [facility] 08-08-2024 08:40-0400 Diastolic blood pressure 73 mm[Hg] [facility] 08-08-2024 08:40-0400 Heart rate 59 /min [facility] 08-08-2024 08:40-0400 Respiratory rate 12 /min [facility] 08-08-2024 08:40-0400 Systolic blood pressure 145 mm[Hg] [facility] 05-15-2024 14:35-0500 Body height 161.29 cm [facility] 05-15-2024 14:35-0500 Body mass index (BMI) [Ratio] 36.4 kg/m2 [facility] 05-15-2024 14:35-0500 Body temperature 97.3 [degF] [facility] 05-15-2024 14:35-0500 Body weight 94.8 kg [facility] 05-15-2024 14:35-0500 Diastolic blood pressure 80 mm[Hg] [facility] 05-15-2024 14:35-0500 Heart rate 65 /min [facility] 05-15-2024 14:35-0500 Respiratory rate 19 /min [facility] 05-15-2024 14:35-0500 SaO2% (BldA) [Mass fraction] 95 % [facility] 05-15-2024 14:35-0500 Systolic blood pressure 139 mm[Hg] [facility] 03-13-2024 09:29-0400 Body height 160.02 cm [facility] 03-13-2024 09:29-0400 Body mass index (BMI) [Ratio] 37.6 kg/m2 [facility] 03-13-2024 09:29-0400 Body weight 96.38 kg [facility] 03-13-2024 09:29-0400 Diastolic blood pressure 81 mm[Hg] [facility] 03-13-2024 09:29-0400 Heart rate 80 /min [facility] 03-13-2024 09:29-0400 Respiratory rate 12 /min [facility] 03-13-2024 09:29-0400 Systolic blood pressure 142 mm[Hg] [facility] 01-29-2024 10:03-0400 Body height 160.02 cm [facility] 01-29-2024 10:03-0400 Body mass index (BMI) [Ratio] 37.2 kg/m2 [facility] 01-29-2024 10:03-0400 Body weight 95.36 kg [facility] 01-29-2024 10:03-0400 Diastolic blood pressure 78 mm[Hg] [facility] 01-29-2024 10:03-0400 Heart rate 61 /min [facility] 01-29-2024 10:03-0400 Respiratory rate 12 /min [facility] 01-29-2024 10:03-0400 Systolic blood pressure 139 mm[Hg] [facility] 10-30-2023 09:35-0400 Body height 160.02 cm DO Mckinley Ball Work Phone: [facility] 10-30-2023 09:35-0400 Body mass index (BMI) [Ratio] 37.3 kg/m2 DO Mckinley Ball Work Phone: [facility] 10-30-2023 09:35-0400 Body weight 95.42 kg DO Mckinley Ball Work Phone: [facility] 10-30-2023 09:35-0400 Diastolic blood pressure 89 mm[Hg] DO Mckinley Ball Work Phone: [facility] 10-30-2023 09:35-0400 Heart rate 82 /min DO Mckinley Ball Work Phone: [facility] 10-30-2023 09:35-0400 Respiratory rate 12 /min DO Mckinley Ball Work Phone: [facility] 10-30-2023 09:35-0400 Systolic blood pressure 164 mm[Hg] DO Mckinley Ball Work Phone: [facility] 10-12-2023 09:18-0400 Body height 160.02 cm DO Mckinley Ball Work Phone: [facility] 10-12-2023 09:18-0400 Body mass index (BMI) [Ratio] 37 kg/m2 DO Mckinley Ball Work Phone: [facility] 10-12-2023 09:18-0400 Body weight 94.85 kg DO Mckinley Ball Work Phone: [facility] 10-12-2023 09:18-0400 Diastolic blood pressure 77 mm[Hg] DO Mckinley Ball Work Phone: [facility] 10-12-2023 09:18-0400 Heart rate 77 /min DO Mckinley Ball Work Phone: [facility] 10-12-2023 09:18-0400 Respiratory rate 12 /min DO Mckinley Ball Work Phone: [facility] 10-12-2023 09:18-0400 Systolic blood pressure 148 mm[Hg] DO Mckinley Ball Work Phone: [facility] 07-30-2023 15:01-0400 Body height 160.02 cm DO Mckinley Ball Work Phone: [facility] 07-30-2023 15:01-0400 Body mass index (BMI) [Ratio] 36.6 kg/m2 DO Mckinley Ball Work Phone: [facility] 07-30-2023 15:01-0400 Body weight 93.66 kg DO Mckinley Ball Work Phone: [facility] 07-30-2023 15:01-0400 Diastolic blood pressure 90 mm[Hg] DO Mckinley Ball Work Phone: [facility] 07-30-2023 15:01-0400 Heart rate 75 /min DO Mckinley Ball Work Phone: [facility] 07-30-2023 15:01-0400 Systolic blood pressure 149 mm[Hg] DO Mckinley Ball Work Phone: [facility] 06-13-2023 09:00-0500 Body height 161.29 cm Mckinley Ball Other [facility] Other 06-13-2023 09:00-0500 Body mass index (BMI) [Ratio] 35.43 kg/m2 Mckinley Ball Other [facility] Other 06-13-2023 09:00-0500 Body weight 92.17 kg Mckinley Ball Other [facility] Other 06-13-2023 09:00-0500 Diastolic blood pressure 77 mm[Hg] Mckinley Ball Other [facility] Other 06-13-2023 09:00-0500 Respiratory rate 12 /min Mckinley Ball Other [facility] Other 06-13-2023 09:00-0500 Systolic blood pressure 127 mm[Hg] Mckinley Ball Other [employer] Other 05-03-2023 08:30-0500 Body height 161.29 cm Mckinley Ball Other [employer] Other 05-03-2023 08:30-0500 Body mass index (BMI) [Ratio] 35.39 kg/m2 Mckinley Ball Other [employer] Other 05-03-2023 08:30-0500 Body weight 92.08 kg Mckinley Ball Other [employer] Other 05-03-2023 08:30-0500 Diastolic blood pressure 79 mm[Hg] Mckinley Ball Other [employer] Other 05-03-2023 08:30-0500 Respiratory rate 12 /min Mckinley Ball Other [employer] Other 05-03-2023 08:30-0500 Systolic blood pressure 133 mm[Hg] Mckinley Ball Other [employer] Other 03-08-2023 09:30-0400 Body height 161.29 cm Mckinley Ball Other [employer] Other 03-08-2023 09:30-0400 Body mass index (BMI) [Ratio] 35.01 kg/m2 Mckinley Ball Other [employer] Other 03-08-2023 09:30-0400 Body weight 91.08 kg Mckinley Ball Other [employer] Other 03-08-2023 09:30-0400 Diastolic blood pressure 83 mm[Hg] Mckinley Ball Other [employer] Other 03-08-2023 09:30-0400 Respiratory rate 12 /min Mckinley Ball Other [employer] Other 03-08-2023 09:30-0400 Systolic blood pressure 134 mm[Hg] Mckinley Ball Other [employer] Other 01-04-2023 11:30-0400 Body height 161.29 cm Mckinley Ball Other [employer] Other 01-04-2023 11:30-0400 Body mass index (BMI) [Ratio] 34.69 kg/m2 Mckinley Ball Other [employer] Other 01-04-2023 11:30-0400 Body weight 90.27 kg Mckinley Ball Other [employer] Other 01-04-2023 11:30-0400 Diastolic blood pressure 81 mm[Hg] Mckinley Ball Other [employer] Other 01-04-2023 11:30-0400 Respiratory rate 12 /min Mckinley Ball Other [employer] Other 01-04-2023 11:30-0400 Systolic blood pressure 131 mm[Hg] Mckinley Ball Other [employer] Other 12-12-2022 07:50-0400 Body height 153.1 cm Gustavo Li MD Work Phone: [facility] 12-12-2022 07:50-0400 Body mass index (BMI) [Ratio] 38.4 kg/m2 Gustavo Li MD Work Phone: [facility] 12-12-2022 07:50-0400 Body weight 90 kg Gustavo Li MD Work Phone: [facility] 11-01-2022 14:30-0400 Body height 161.29 cm Keara Morenoshwetha Other [employer] Other 11-01-2022 14:30-0400 Body mass index (BMI) [Ratio] 35.22 kg/m2 Keara Bullard Other [employer] Other 11-01-2022 14:30-0400 Body weight 91.63 kg Keara Morenoshwetha Other [employer] Other 11-01-2022 14:30-0400 Diastolic blood pressure 84 mm[Hg] Keara Bullard Other [employer] Other 11-01-2022 14:30-0400 Systolic blood pressure 130 mm[Hg] Keara Bullard Other [employer] Other 09-28-2022 10:05-0400 Diastolic blood pressure 75 mm[Hg] DO BDNA Work Phone: [facility] 09-28-2022 10:05-0400 Heart rate 60 /min DO [facility] Work Phone: [facility] 09-28-2022 10:05-0400 Respiratory rate 16 /min DO [facility] Work Phone: [facility] 09-28-2022 10:05-0400 SaO2% (BldA) [Mass fraction] 98 % DO [facility] Work Phone: [facility] 09-28-2022 10:05-0400 Systolic blood pressure 153 mm[Hg] DO [facility] Work Phone: [facility] 09-28-2022 07:48-0400 Body height 160.02 cm DO [facility] Work Phone: [facility] 09-28-2022 07:48-0400 Body temperature 98.9 [degF] DO Arnoldo Nixon Work Phone: [facility] 09-28-2022 07:48-0400 Body weight 93.89 kg DO Arnoldo Nixon Work Phone: [facility] 07-04-2022 09:30-0500 Body height 161.29 cm Mckinley Ball Other [employer] Other 07-04-2022 09:30-0500 Body mass index (BMI) [Ratio] 36.3 kg/m2 Mckinley Ball Other [employer] Other 07-04-2022 09:30-0500 Body weight 94.44 kg Mckinley Ball Other [employer] Other 07-04-2022 09:30-0500 Diastolic blood pressure 78 mm[Hg] Mckinley Ball Other [employer] Other 07-04-2022 09:30-0500 Respiratory rate 12 /min Mckinley Ball Other [employer] Other 07-04-2022 09:30-0500 Systolic blood pressure 122 mm[Hg] Mckinley Ball Other [employer] Other 03-09-2022 15:30-0400 Body height 161.29 cm Arablela Arechiga Other [employer] Other 03-09-2022 15:30-0400 Body mass index (BMI) [Ratio] 36.79 kg/m2 Arabella Arechiga Other [employer] Other 03-09-2022 15:30-0400 Body temperature 97.1 [degF] Arabella Arechiga Other [employer] Other 03-09-2022 15:30-0400 Body weight 95.71 kg Arabella Arechiga Other [employer] Other 03-09-2022 15:30-0400 Diastolic blood pressure 85 mm[Hg] Arabella Arechiga Other [employer] Other 03-09-2022 15:30-0400 Respiratory rate 18 /min Arabella Arechiga Other [employer] Other 03-09-2022 15:30-0400 SaO2% (BldA) [Mass fraction] 99 % Arabella Arechiga Other [employer] Other 03-09-2022 15:30-0400 Systolic blood pressure 135 mm[Hg] Arabella Arechiga Other [employer] Other Encounters Encounter Date Encounter Type Care Provider Facility Start: 08-08-2024 End: 08-08-2024 ambulatory [facility] Work Phone: Start: 08-08-2024 End: 08-08-2024 Patient encounter procedure [facility] Work Phone: Start: 05-15-2024 End: 05-15-2024 Patient encounter procedure [facility] Work Phone: Start: 03-13-2024 End: 03-13-2024 ambulatory [facility] Work Phone: Start: 03-13-2024 End: 03-13-2024 Patient encounter procedure [facility] Work Phone: Start: 02-26-2024 Non-patient / Non-visit [facility] Work [facility]: Start: 01-29-2024 End: 01-29-2024 ambulatory [facility] Work Phone: Start: 01-29-2024 End: 01-29-2024 Patient encounter procedure [facility] Work Phone: Start: 12-31-2023 Non-patient / Non-visit [facility] Work Phone: Start: 12-03-2023 Non-patient / Non-visit [facility] Work Phone: Start: 11-19-2023 Non-patient / Non-visit [facility] Work Phone: Start: 10-30-2023 End: 10-30-2023 ambulatory DO Mckinley Ball Work Phone: [facility] Work Phone: Start: 10-30-2023 End: 10-30-2023 Patient encounter procedure DO Mckinley Ball Work Phone: [facility] Work Phone: Start: 10-12-2023 End: 10-12-2023 ambulatory DO Mckinley Ball Work Phone: [facility] Work Phone: Start: 10-12-2023 End: 10-12-2023 Patient encounter procedure DO Mckinley Ball Work Phone: [facility] Work Phone: Start: 09-13-2023 End: 09-13-2023 ambulatory Mckinley Ball Facility:[facility] Start: 09-13-2023 End: 09-13-2023 ambulatory DO Mckinley Ball Work Phone: [facility] Work Phone: Start: 09-13-2023 End: 09-13-2023 Patient encounter procedure DO Mckinley Ball Work Phone: [facility] [address] Work Phone: Start: 09-12-2023 End: 09-12-2023 ambulatory Mckinley Alfaro Facility:[facility] Start: 09-12-2023 End: 09-12-2023 ambulatory DO Mckinley Alfaro Work Phone: [facility] Work Phone: Start: 09-12-2023 End: 09-12-2023 Patient encounter procedure DO Mckinley Alfaro Work Phone: [facility] [address] Work Phone: Start: 09-06-2023 End: 09-07-2023 ambulatory JIL HONG Not Available Start: 08-23-2023 End: 08-23-2023 ambulatory JIL HONG Not Available Start: 08-03-2023 Non-patient / Non-visit DO Augie Alfaro Work Phone: [facility] Work Phone: Start: 07-30-2023 End: 07-30-2023 Patient encounter procedure DO Mckinley Alfaro Work Phone: [facility] Work Phone: Start: 07-26-2023 End: 07-27-2023 ambulatory JIL HONG Not Available Start: 07-10-2023 End: 07-10-2023 ambulatory JIL HONG Not Available Start: 06-15-2023 End: 06-15-2023 ambulatory LYRIC RODRIGUEZ Not Available Start: 06-13-2023 Office outpatient vi sit 15 minutes Mckinley Alfaro [facility] Start: 06-13-2023 End: 06-14-2023 ambulatory JOHN JEROME [facility] [employer] Other Start: 06-12-2023 End: 06-12-2023 ambulatory DELL JOHNSON Not Available Start: 06-11-2023 End: 06-11-2023 ambulatory IVONNE DEBRAY Not Available Start: 06-07-2023 End: 06-07-2023 ambulatory IVONNE DEBRAY Not Available Start: 06-05-2023 End: 06-05-2023 ambulatory IVONNE BORREROBLEY Not Available Start: 05-31-2023 End: 05-31-2023 ambulatory IVONNE GISSELLBLEY Not Available Start: 05-29-2023 End: 05-29-2023 ambulatory RACHELLE BEYALL Not Available Start: 05-24-2023 End: 05-24-2023 ambulatory RACHELLE BEYALL Not Available Start: 05-22-2023 End: 05-22-2023 ambulatory RACHELLE BEYALL Not Available Start: 05-18-2023 End: 05-18-2023 ambulatory Mckinley Alfaro Other [employer] Other Start: 05-18-2023 Telephone encounter Mckinley Alfaro [facility] Start: 05-10-2023 End: 05-10-2023 ambulatory RACHELLE BEYALL Not Available Start: 05-08-2023 End: 05-08-2023 ambulatory JIL A SHERRIE Not Available Start: 05-07-2023 End: 05-08-2023 ambulatory AL SALGADO Not Available Start: 05-03-2023 End: 05-03-2023 ambulatory IVONNE RICHARDSONY [facility] Other Start: 05-03-2023 Office outpatient vi sit 15 minutes Mckinley Alfaro [facility] Start: 04-30-2023 End: 05-01-2023 ambulatory IVONNECHERYL BORREROBLEY Not Available Start: 04-25-2023 End: 04-25-2023 ambulatory JOHN B APLING Not Available Start: 04-20-2023 End: 04-21-2023 ambulatory IVONNE GISSELLBLEY Not Available Start: 04-17-2023 End: 04-17-2023 ambulatory JIL A SHRERIE Not Available Start: 04-16-2023 End: 04-16-2023 ambulatory YSABEL NIURKA Not Available Start: 04-09-2023 End: 04-09-2023 ambulatory YSABEL NIURKA Not Available Start: 04-06-2023 End: 04-09-2023 ambulatory LYRIC RODRIGUEZ Not Available Start: 04-03-2023 End: 04-03-2023 ambulatory YSABEL NIURKA Not Available Start: 03-30-2023 End: 04-02-2023 ambulatory JOHN B APLING Not Available Start: 03-08-2023 End: 03-08-2023 ambulatory Mckinley Alfaro Other [employer] Other Start: 03-08-2023 Office outpatient vi sit 15 minutes Mckinley Alfaro [facility] Start: 02-07-2023 End: 02-07-2023 ambulatory Mckinley Alfaro Other [employer] Other Start: 02-07-2023 Telephone encounter Mckinley Alfaro [facility] Start: 01-04-2023 End: 01-04-2023 ambulatory Mckinley Alfaro Other [employer] Other Start: 01-04-2023 Encounter for other preprocedural examination Mckinley Alfaro [facility] Start: 01-04-2023 Office outpatient vi sit 25 minutes Mckinley Alfaro [facility] Start: 12-21-2022 Message Mckinley chase Work Phone: [facility] a 219 DO Work Phone: Start: 12-12-2022 End: 12-12-[address] Gustavo Li Facility:[id number] Start: 12-12-2022 End: 12-12-2022 Subsequent hospital visit by physician Gustavo Li MD Work Phone: [facility] Comment on above: Polyp of stomach and duodenum Start: 11-16-2022 End: 11-16-2022 ambulatory Mckinley Alfaro Other [employer] Other Start: 11-16-2022 Telephone encounter Mckinley Alfaro [facility] Start: 11-01-2022 End: 11-01-2022 ambulatory Keara Bullard Other [employer] Other Start: 11-01-2022 Office outpatient vi sit 15 minutes eKara Bullard [facility] Start: 09-28-2022 End: 09-28-2022 ambulatory Niurka Oliveira Facility:[facility] Start: 09-28-2022 End: 09-28-2022 Admission to same day surgery center DO Arnoldo House Work Phone: [facility] Work Phone: Start: 09-28-2022 End: 09-28-2022 ambulatory DO Arnoldo House Work Phone: [facility] Work Phone: Start: 07-20-2022 End: 07-20-2022 ambulatory Mckinley Alfaro Other [employer] Other Start: 07-20-2022 Telephone encounter Mckinley Alfaro [facility] Start: 07-19-2022 End: 07-20-[address] MCKINLEY ALFARO Facility:[facility] Start: 07-04-2022 End: 07-04-2022 ambulatory Mckinley Alfaro Other [employer] Other Start: 07-04-2022 Office outpatient vi sit 25 minutes Mckinley Alfaro [facility] Start: 06-14-2022 End: 06-14-2022 ambulatory Arabella Arechiga Other [employer] Other Start: 06-14-2022 Telephone encounter Arabella Brian t [facility] Start: 06-13-2022 End: 06-14-[address] MCKINLEY ALFARO Facility:[facility] Start: 06-07-2022 End: 06-07-[address] MCKINLEY ALFARO Facility:[facility] Start: 05-03-2022 End: 05-04-[address] MCKINLEY ALFARO Facility:[facility] Start: 03-31-2022 End: 04-01-[address] MCKINLEY ALFARO Facility:[facility] Start: 03-09-2022 End: 03-09-2022 ambulatory Arabella Arechiga Other [employer] Other Start: 03-09-2022 Office outpatient vi sit 15 minutes Arabella Arechiga [facility] Start: 09-29-2021 End: 09-30-[address] MCKINLEY ALFARO Facility: Start: 10-05-2018 End: 10-05-2018 Emergency department patient visit MCKINLEY Levon SALEEM [facility] Start: 10-04-2018 End: 10-04-2018 Emergency department patient visit HARJIT Levon OLIVIA [facility] Start: 09-25-2017 End: 09-26-2017 Ambulatory DEFAULT PHYSICIAN Facility:[facility] Start: 09-07-2017 End: 09-08-2017 Ambulatory DEFAULT PHYSICIAN Facility:[facility] Procedures Date Procedure Procedure Detail Performing [...] EITCHES Start: 10-04-2018 INSERT PERIPHERAL IV HARJIT EINALDOES Start: 10-04-2018 Blood count complete auto&auto difrntl wbc HARJIT EIPIPER Plan of Treatment Date Care Activity Detail Author Start: 09-12-2023 Hepatitis B core antibody measurement [facility] Start: 09-12-2023 [facility] Start: 01-19-2023 Influenza vaccination Influenza Vaccine (#1) [facility] Start: 09-28-2022 [facility] Start: 2017 Pneumococcal Vaccine: 65+ Years (1 - PCV) Pneumococcal Vaccine: 65+ Years (1 - PCV) [facility] Start: 2002 Zoster Vaccines (1 of 2) Zoster Vaccines (1 of 2) [facility] Start: 1992 Screening for malignant neoplasm of breast Mammogram [facility] Start: 1974 DTaP/Tdap/Td Vaccines (1 - Tdap) DTaP/Tdap/Td Vaccines (1 - Tdap) [facility] Start: 1970 Hepatitis C screening Hepatitis C Screening [facility] Start: 1952 COVID-19 Vaccine (#1) COVID-19 Vaccine (#1) [facility] Start: 1952 Lipid panel Lipid Panel [facility] Start: 1952 Screening for malignant neoplasm of colon [facility] Start: 1952 Screening for osteoporosis Bone Density Scan [facility] Start: 1952 Yearly Adult Physical Yearly Adult Physical [facility] Comprehensive metabo lic 1999 panel - Serum or Plasma [facility] Comprehensive metabo lic 1999 panel - Serum or Plasma [facility] Hepatitis B virus jimenez rface Ab [Presence] in Serum [facility] Hepatitis B virus jimenez rface Ag [Presence] in Serum or Plasma by Immunoassay [facility] Hepatitis C virus Ig G Ab [Presence] in Serum or Plasma by Immunoassay [facility] MG Breast - bilatera l Screening [facility] Patient Education Esophageal Dil ation Hiatal Hernia (DC) Stomach Polyps [facility] Work Phone: Rheumatoid factor [Units/volume] in Serum or Plasma [facility] Thyroid stimulating immunoglobulins actual/normal in Serum [facility] XR Hip - left 2 Views [facility] Immunizations Immunization Date Immunization Notes Care Provider Fa velia 01-29-2024 influenza, high dose seasonal, preservative-free [facility] 03-08-2023 influenza virus vaccine, unspecified formulation DO Mckinley Alfaro Work Phone: [facility] 03-08-2023 influenza, high dose seasonal, preservative-free Mckinley Alfaro Other [employer] Other 04-07-2022 diphtheria, tetanus toxoids and acellular pertussis vaccine, unspecified formulation Mckinley Alfaro Other [facility] 04-07-2022 tetanus toxoid, reduced diphtheria toxoid, and acellular pertussis vaccine, adsorbed [facility] 03-01-2022 influenza virus vaccine, split virus (incl. purified surface antigen) Mckinley Alfaro Other [employer] Other 03-01-2022 influenza virus vaccine, unspecified formulation DO Mckinley Alfaro Work Phone: [facility] 02-13-2021 Influenza vaccine, quadrivalent, adjuvanted [facility] 08-21-2020 COVID-19 mRNA-1273 (Moderna) [facility] 07-24-2020 COVID-19 mRNA-1273 (Moderna) [facility] 02-09-2020 Fluzone QIV High-Dos e 65YR+ [facility] 08-04-2019 pneumococcal conjuga te vaccine, 13 valent Mckinley Alfaro Other [facility] 02-19-2019 influenza, injectabl e, quadrivalent, preservative free [facility] 03-06-2018 influenza, injectabl e, quadrivalent, preservative free [facility] 01-28-2018 influenza, injectabl e, quadrivalent, preservative free [facility] 01-30-2017 influenza, injectabl e, quadrivalent, preservative free [facility] 03-21-2015 influenza, injectabl e, madin niecy canine kidney, preservative free [facility] 01-01-2013 tetanus toxoid, reduced diphtheria toxoid, and acellular pertussis vaccine, adsorbed [facility] Payers Date Payer Category Payer Self-pay [id number] 2022 Unknown [id number] 2015 Unknown [id number] 2015 Unknown [id number] 1959 Medicare [id number] 2.16.840.1.898166.19 1959 Self-pay [id number] 1959 Unknown [id number] 2.16.840.1.807099.19 1952 Unknown [id number] 2.16.840.1.856693.3.579.2.1 73 1952 Unknown [id number] 2.16.840.1.261760.3.579.2.1 73 1952 Unknown [id number] 2.16.840.1.295229.3.579.2.5 93 1952 Unknown [id number] 2.16.840.1.277658.3.579.2.5 93 1952 Unknown [id number] 2.16.840.1.705862.3.579.2.5 93 1952 Unknown [id number] 2.16.840.1.757764.3.579.2.5 93 1952 Unknown [id number] 2.16.840.1.154164.3.579.2.5 93 1952 Unknown [id number] 2.16.840.1.161478.3.579.2.1 069 1952 Unknown [id number] 2.16.840.1.022985.3.579.2.1 259 1952 Unknown [id number] 2.16.840.1.542886.3.579.2.1 259 1952 Unknown [id number] 2.16.840.1.806566.3.579.2.1 259 1952 Unknown [id number] 2.16.840.1.728450.3.579.2.1 259 1952 Unknown [id number] 2.16.840.1.629632.3.579.2.1 259 1952 Unknown [id number] 2.16.840.1.450365.3.579.2.1 259 1952 Unknown [id number] 2.16.840.1.857450.3.579.2.1 259 1952 Unknown [id number] 2.16.840.1.794196.3.579.2.1 259 1952 Unknown [id number] 2.16.840.1.395663.3.579.2.1 259 1952 Unknown [id number] 2.16.840.1.134347.3.579.2.1 259 1952 Unknown [id number] 2.16.840.1.947765.3.579.2.1 259 1952 Unknown [id number] 2.16.840.1.389499.3.579.2.1 259 1952 Unknown [id number] 2.16.840.1.032293.3.579.2.1 259 1952 Unknown [id number] 2.16.840.1.600608.3.579.2.1 259 1952 Unknown [id number] 2.16.840.1.668017.3.579.2.1 259 1952 Unknown [id number] 2.16.840.1.249911.3.579.2.1 259 1952 Unknown [id number] 2.16.840.1.513009.3.579.2.1 259 1952 Unknown [id number] 2.16.840.1.469536.3.579.2.1 259 1952 Unknown [id number] 2.16.840.1.233773.3.579.2.1 259 1952 Unknown [id number] 2.16.840.1.794686.3.579.2.1 259 1952 Unknown [id number] 2.16.840.1.241883.3.579.2.1 259 1952 Unknown [id number] 2.16.840.1.660602.3.579.2.1 259 1952 Unknown [id number] 2.16.840.1.043467.3.579.2.1 259 1952 Unknown [id number] 2.16.840.1.179344.3.579.2.1 259 1952 Unknown [id number] 2.16.840.1.223480.3.579.2.1 259 1952 Unknown [id number] 2.16.840.1.492137.3.579.2.1 259 1952 Unknown [id number] 2.16.840.1.431231.3.579.2.1 259 1952 Unknown [id number] 2.16.840.1.055366.3.579.2.1 259 1952 Unknown [id number] 2.16.840.1.374052.3.579.2.1 259 Medicare Medicare-OP No Part B [id number] Unknown Unknown [id number] 2.16.840.1.037590.3.579.2.5 93 Unknown [id number] 2.16.840.1.151974.3.579.2.5 31 Unknown [id number] 2.16.840.1.148062.3.579.2.5 31 Unknown [id number] 2.16.840.1.666864.3.579.2.5 31 Worker's Compensation [employer] Misc [id number] Social History Date Type Detail Facility Unknown if ever smoked [employer] Other Sex Assigned At [employer] Other Start: 09-28-2022 End: 04-30-2024 Tobacco smoking status NHIS Never smoked tobacco (finding) [facility] Start: 1950 Sex Assigned At Female F [facility] Tobacco smoking status TNIS Tobacco smoking consumption unknown [facility] Work Phone: Start: 1950 Sex Assigned At Not on file U [facility] Work Phone: Start: 08-08-2024 Sex Female (finding) [facility] Goals Date Patient Goal Desired Activity /State Clinical Notes 03-09-2022 to 05-15-2024 Note Date & Type Note Facility 05-15-2024 Evaluation note Diagnosis Onset Date Resolution Acute maxillary sinusitis deleted May 15, 024 1:46pm Age-related osteoporosis without current pathological fracture acute August 08, 2024 8:27am GERD (gastroesophageal reflux disease) acute August 08, 2024 8:27am Hypertension acute August 08, 2024 8:27am Hypothyroid acute August 08 025 8:27am IFG (impaired fasting glucose) acute August 08, 2024 8:27am Opiate analgesic use agreement exists acute August 08 8:27am Psoriatic arthritis acute August 08, 2024 8:27am Medicare annual wellness visit, subsequent noneactive August 08, 2024 8:27am Screening mammogram for breast cancer noneactive August 08, 2024 8:27am [facility] Work Phone: [phone] Evaluation note* Encounter Date Diagnosis Assessment Notes Treatment Notes Treatment Clinical Notes May, Pain in right hip (ICD-10 [...] Orthopedics w/ increased pain or trigger finger [employer] Other 12-14-2023 Evaluation note* Encounter Date [...] index [BMI] 35.0-35.9, adult (ICD-10 - Z68.35) [employer] Other 10-19-2023 Evaluation note* Encounter Date Diagnosis [...] to r/o fracture Continue Mobic and add [place] for now. Consider PT if XR negative Feb, Right hip pain (ICD-10 - M25.551) XR to determine degree of arthritis and r/o fx. ROM exercises COntinue Mobic and add [place] for now. Feb, Seborrheic dermatitis (ICD-10 - [...] index [BMI] 35.0-35.9, adult (ICD-10 - Z68.35) [employer] Other 08-17-2023 Evaluation note* Encounter Date Diagnosis [...] also instructed to stop Mobic and start [place], 7 days prior to her procedure. Dec, Gastroesophageal reflux disease with esophagitis without hemorrhage (ICD-10 - K21.00) Stable, continue medication w/o interruption Dec, Traumatic complete tear of right rotator cuff, subsequent encounter (ICD-10 - S46.011D) Scheduled for arthroscopic repair w/ Dr. Hong. Will review pre admission testing [employer] 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 Refer to note in patient chart for documentation of history and physical. Providers: Gustavo Li MD (Doctor), Sara Castillo RN (Nurse), Maciel Ferrer, Gore Stitcher Referring: Gustavo Li MD Medicines: See the [...] biopsy result. 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 Other 05-11-2023 Procedure [facility]-14-2023 Evaluation note* Encounter Date Diagnosis Assessment Notes [...] exercise for 30 minutes, 3-5 times weekly. [employer] Other 10-20-2022 Evaluation note* Encounter Date Diagnosis [...] with primary care provider to discuss reaction. [employer] Other Evaluation noteNo [employer] Other Evaluation note* Diagnosis Onset Date Resolution Status Dysphagia acute [facility] [employer] Work Phone: Evaluation note* Diagnosis Polyp of stomach and duodenum documented in this encounter [facility] Work Phone: Evaluation note* Diagnosis Onset Date Resolution Status Age-related osteoporosis wit hout current pathological fracture acute Dupuytren's contracture of right hand acute GERD (gastroesophageal reflux disease) acute Hypertension acute Inflammatory polyarthritis a cute Lumbar spondylosis acute Trigger finger acute Medicare annual wellness visit, subsequent noneactive Screening mammogram for breast cancer noneactive [facility] Work Phone: Evaluation note* Diagnosis [...] Strain of hip and thigh acut e [facility] Work Phone: Evaluation note* Diagnosis Onset Date Resolution Status Left hip pain acute Primary osteoarthritis of hip acute Strain of hip and thigh acut e Age-related osteoporosis wit hout current pathological fracture acute Fibromyalgia acute GERD (gastroesophageal reflux disease) acute Hypertension acute Inflammatory polyarthritis a cute Lumbar spondylosis acute Trigger finger acute [facility] Work Phone: Evaluation note* Diagnosis Onset Date Resolution Status Age-related osteoporosis wit hout current pathological fracture acute Fibromyalgia acute GERD (gastroesophageal reflux disease) acute Hypertension acute Lumbar spondylosis acute Opiate analgesic use agreement exists acute Psoriatic arthritis acute [facility] Work Phone: Evaluation note* Diagnosis Onset Date Resolution Status Age-related osteoporosis wit hout current pathological fracture acute Fibromyalgia acute GERD (gastroesophageal reflux disease) acute Hypertension acute Lumbar spondylosis acute Opiate analgesic use agreement exists acute Psoriatic arthritis acute Age-related osteoporosis wit hout current pathological fracture acute Fibromyalgia acute GERD (gastroesophageal reflux disease) acute Hypertension acute Lumbar spondylosis acute Psoriatic arthritis acute [facility] Work Phone: Hissrww general Narrative - Reported* Type Description Date Medical History Hypertension Medical History Acid reflux Medical History Hiatal hernia Surgical History back surgery x3 Surgical History Neck Surgery Surgical History shoulder arthroscopy Surgical History hysterectomy Surgical History cholecystectomy Hospitalization History see above [employer] Other Hisrdsj general Narrative - Reported* Type Description Date Medical History Hypertension Medical History Acid reflux Medical History Hiatal hernia Surgical History back surgery x3 Surgical History Neck Surgery Surgical History shoulder arthroscopy Surgical History hysterectomy Surgical History cholecystectomy Surgical History EGD w/ bx and dilatation 09/2022 Hospitalization History see above [employer] Other Hisbone general Narrative - Reported* Type Description Date Medical History Hypertension Medical History Acid reflux Medical History Hiatal hernia Surgical History back surgery x3 Surgical History Neck Surgery Surgical History shoulder arthroscopy Surgical History hysterectomy Surgical History cholecystectomy Surgical History EGD w/ bx and dilatation 09/2022 Surgical History Right shoulder arthroscopy 02/07 23 Hospitalization History see above [employer] Other History general Narrative - Reported* Type Description Date Medical History Hypertension Medical History Acid reflux Medical History Hiatal hernia Surgical History back surgery x3 Surgical History Neck Surgery Surgical History shoulder arthroscopy Surgical History hysterectomy Surgical History cholecystectomy Surgical History EGD w/ bx and dilatation 09/2022 Surgical History Right shoulder arthroscopy 02/07 23 Surgical History Endoscopic US 11/2022 Hospitalization History see above [employer] Other Hospital Discharge instructions Additional Instructions DISCHARGE [...] if you have any problems. -Office number [phone] Work Phone: Summary Purpose Family [...] Advance Directives No February 22, 2017 9:37am Advance Directive Response Recorded Date/ Time Advance Directives No April 11:40am Chief Complaint and Reason for Visit Chief [...] reflux disease) Hypertension Lumbar spondylosis Psoriatic arthritis Chief Complaint Admit Date Sinus congestion, headache, earache Dece mber 2023 1:46pm Wellness August 08, 2024 8:2 7am Reason for Visit Admit Date Acute maxillary sinusitis May 15, 2024 1:46pm Age-related osteoporosis wit hout current pathological fracture August 08, 2024 8:27am GERD (gastroesophageal reflux disease) M 2024 8:27am Hypertension August 08, 2024 8:2 7am Hypothyroid August 08, 2024 8:2 7am IFG (impaired fasting glucose) July 8:27am Opiate analgesic use agreement exists [facility] 2024 8:27am Psoriatic arthritis August 08, 2024 8:2 7am Medicare annual wellness visit, subseque nt August 08, 2024 8:27am Screening mammogram for breast cancer [facility] 2024 8:27am Additional Source Comments INFORMATION SOURCE (unrecogn ized section and content) DATE CREATED AUTHOR 11/08/2017 [facility] DATE CREATED AUTHOR AUTHOR'S ORGANIZ ATION 10/13/2018 [facility] DATE CREATED AUTHOR AUTHOR'S ORGANIZ ATION 07/21/2022 [facility] DATE CREATED AUTHOR AUTHOR'S ORGANIZ ATION 12/21/2022 [facility] DATE CREATED AUTHOR AUTHOR'S ORGANIZ ATION 12/22/2022 [facility] DATE CREATED AUTHOR AUTHOR'S ORGANIZ ATION 09/10/2023 [facility] DATE CREATED AUTHOR AUTHOR'S ORGANIZ ATION 09/21/2023 [facility] REASON FOR VISIT (unrecogniz ed section and content) Reason Comments Other EGD/EUS D49.0 [id number] Care Teams (unrecognized sec tion and content) Team Status: Active Member Role Status Dates Mckinley Alfaro DO Primary Care Provider Active Team Status: Inactive Member Role Status Dates Mckinley Alfaro DO Primary Care Provider Active Start: May 15, 2024 End: May 15, 2024 Kimberly Vital APRN Attending Provider Active Start: May 15, 2024 End: May 15, 2024 Team Status: Inactive Member Role Status Dates Mckinley Alfaro DO Primary Care Provide r, Attending Provider Active Start: August 08, 2024 End: August 08, 2024 Team Status: Active Member Role Status Lara [...] Active Niurka Oliveira MD Attending Provider Active Want Ad Supervisor Relationship Specialty Start Date End Date Mckinley [...] Alfaro DO Primary Care Provider Active Start: February 26, 2024 Tano Tsai MD Attending Provider Active St art: February 26, 2024 Team Status: Inactive Member Role Status Dates Mckinley Alfaro DO Primary Care Provide r, Attending Provider Active Start: March 13, 2024 End: March 13, 2024 Team Status: Inactive Member Role Status Dates Mckinley Alfaro DO Primary Care Provider Active Start: May 15, 2024 End: May 15, 2024 Kimberly Vital APRN Attending Provider Active Start: May 15, 2024 End: May 15, 2024 Team Status: Inactive Member Role Status Dates Mckinley Alfaro DO Primary Care Provide r, Attending Provider Active Start: August 08, 2024 End: August 08, 2024 Goals (unrecognized section and content) Goals [...] BE BASED ON THE PRIMARY CLINICAL RECORDS. [facility] [employer] provides no warranty or guarantee of the accuracy or completeness of information in this document.
[2024-08-12 10:59] LABS: Basophils Absolute Auto 0.1 10^3/uL (0.0-0.1); Basophils Percent Auto 0.7 % (0.2-2.0); Eosinophils Absolute Auto 0.4 10^3/uL (0.0-0.7); Hemoglobin 12.5 g/dL (12.0-16.0); Immature Granulocytes Abs Auto 0.02 10^3/uL (0.00-0.03); Immature Granulocytes Pct Auto 0.3 % (0.0-0.5); Lymphocytes Absolute Auto 1.6 10^3/uL (1.2-3.8); Lymphocytes Percent Auto 23.2 % (20.5-60.0); Mean Corpuscular HGB Conc 32.9 g/dL (29.9-35.2); Mean Corpuscular Hemoglobin 28.6 pg (26.7-34.0); Mean Platelet Volume 11.5 fL (9.5-13.5); Monocytes Absolute Auto 0.7 10^3/uL (0.3-0.8); Monocytes Percent Auto 10.2 % (1.7-12.0); Neutrophils Absolute Auto 4.2 10^3/uL (1.4-6.5); Neutrophils Percent Auto 60.6 % (43.0-75.0); Platelet Count 244 10^3/uL (150-450); Red Blood Count 4.37 10^6/uL (4.20-5.40); Red Cell Distribution Width 13.3 % (11.0-15.0); White Blood Count 6.9 10^3/uL (4.0-11.0)
[2024-08-12 11:45] LABS: Alanine Aminotransferase 28 U/L (14-59); Albumin Globulin Ratio 0.9; Albumin Level 3.4 g/dL (3.4-5.0); Alkaline Phosphatase 99 U/L (46-116); Anion Gap 8.2; Aspartate Amino Transferase 22 U/L (15-37); Bilirubin Total 0.7 mg/dL (0.2-1.0); Calcium 8.7 mg/dL (8.5-10.1); Carbon Dioxide 32.3 mmol/L (21.0-32.0); Chloride 105 mmol/L (98-107); Chol HDL Ratio 2.6; Cholesterol 139 mg/dL (<=200); Estimated GFR (African America >60 (>=60 mL/min/1.73m^2); Estimated GFR (Non-African Ame >60 (>=60 mL/min/1.73m^2); Globulin 3.8 g/dL; Glucose 114 mg/dL (74-106); HDL Cholesterol 53 mg/dL (40-60); LDL Cholesterol Calculated 61.8 mg/dL; Potassium 3.5 mmol/L (3.5-5.1); Sodium 142 mmol/L (136-145); Thyroid Stimulating Hormone 1.346 uIU/mL (0.358-3.740); Total Protein 7.2 g/dL (6.4-8.2); Triglycerides 121 mg/dL (<=150); VLDL CHOLESTEROL 24.2 mg/dL
[2024-08-12 11:47] LABS: Estimated Average Glucose 131 mg/dL; Glycohemoglobin A1C 6.2 % (4.5-6.2)
== END 2024-08-12 10:30 | disposition home or self-care (01) ==
LOC: LAB 10:32
PROVIDERS: PCP Internal Medicine; Visit Provider Internal Medicine
DX: E03.9 Hypothyroidism, unspecified (principal); R73.01 Impaired fasting glucose; L40.50 Arthropathic psoriasis, unspecified; I10 Essential (primary) hypertension; E78.00 Pure hypercholesterolemia, unspecified; Z79.899 Other long term (current) drug therapy
CPT/HCPCS: 36415; 80053; 80061; 83036; 84443; 85025

== ENCOUNTER 2025-02-13 07:39 | Outpatient (OUT) | payer MEDICARE, OTHER, SELFPAY ==
--- OUTSIDE RECORDS SUMMARY | 2025-02-13 07:46 | XMS_ITS | Clinical Summary ---
Author Organization [facility] Address [address] [place] [address] Phone Care Team Providers Care Manager Of Application Development Name Role Phone DominicMckinley Primary Care Provider [phone] Social History Tobacco Use Types Packs/Day Years Used Date Smoking Tobacco: Never Assessed Comments Unknown Sex and Gender Information Value Date Recorded Sex Assigned at Not on file Legal Sex Female 9:50 AM EDT Gender Identity Not on file Sexual Orientation Not on file Last Filed Vital Signs Vital Sign Reading Time Taken Comments Blood Pressure - - Pulse - - Temperature - - Respiratory Rate - - Oxygen Saturation - - Inhaled Oxygen Concentration - - Weight 90 kg (198 lb 6.6 oz) 12/12/2022 7:50 AM EDT Height 153.1 cm (5' 0.28 ) 12/12/2022 7:50 AM ED T Body Mass Index 38.4 12/12/2022 7:50 AM EDT Plan of Treatment Health Maintenance Due Date Last Done Comments CT Colonography 1950 Colonoscopy 1950 Colorectal Cancer Screening 1950 FIT-DNA (Cologuard) 1950 FIT 1950 Lipid Panel 1950 Sigmoidoscopy 1950 Yearly Adult Physical 1950 MMR Vaccines (1 of 1 - Stand kaela series) 1951 Hepatitis C Screening 1970 DTaP/Tdap/Td Vaccines (1 - Tdap) 1974 Mammogram 1992 Pneumococcal Vaccine (1 of 1 - PCV) 2002 Zoster Vaccines (1 of 2) 2002 Bone Density Scan 2017 COVID-19 Vaccine (1 - 2023-2 5 season) 2025 Influenza Vaccine (#1) 2025 RSV High Risk: (Elderly (60+ ) or Population) (1 - 1-dose 75+ series) 2027 HIB Vaccines Aged Out No longer eligi ble based on patient's age to complete this topic HPV Vaccines Aged Out No longer eligi ble based on patient's age to complete this topic Hepatitis A Vaccines Aged Out No long er eligible based on patient's age to complete this topic Hepatitis B Vaccines Aged Out No long er eligible based on patient's age to complete this topic IPV Vaccines Aged Out No longer eligi ble based on patient's age to complete this topic Meningococcal Vaccine Aged Out No kirby carmela eligible based on patient's age to complete this topic Rotavirus Vaccines Aged Out No longer eligible based on patient's age to complete this topic Care Teams Manager Of Application Development Relationship Specialty Start Date End Date Mckinley Alfaro DO PCP - General 12/08/22
--- OUTSIDE RECORDS SUMMARY | 2025-02-13 07:46 | XMS_ITS | Clinical Summary ---
Author Organization [facility] Address [address], [address] [place] [address] Care Team Providers Care Latin Professor Name Role Phone Mckinley Alfaro DO Primary Care Provider [phone] Allergies Active Allergy Reactions Criticality Noted Date Comments Penicillins Swelling 12/25/2015 Medications ATENOLOL PO Take by mouth Active meloxicam (MOBIC) 15 MG tablet Take 15 mg by mouth daily Active [place]-3 Fatty Acids (FISH OIL) 1000 MG CAPS Take 1,000 mg by mouth 3 times daily Active ondansetron (ZOFRAN ODT) 4 MG disintegrating tablet Take 1 tablet by mouth every 8 hours as needed for Nausea or Vomiting 20 tablet 9 Active ibuprofen (IBU) 600 MG tablet Take 1 tablet by mouth every 6 hours as needed for Pain 40 tablet 9 Active Active Problems No known active problems Social History Tobacco Use Types Packs/Day Years Used Date Smoking Tobacco: Former Smokeless Tobacco: Never Alcohol Use Standard Drinks/Week Comments No 0 (1 standard drink = 0.6 oz pur e alcohol) Comments No Sex and Gender Information Value Date Recorded Sex Assigned at Not on file Legal Sex Female 2:48 PM EST Gender Identity Not on file Sexual Orientation Not on file Last Filed Vital Signs Vital Sign Reading Time Taken Comments Blood Pressure 134/70 10/04/2018 4:52 AM EDT Pulse 67 10/04/2018 4:52 AM EDT Temperature 36.7 C (98.1 F) 10/04/2018 4:53 AM EDT Respiratory Rate 18 10/04/2018 2:51 AM EDT Oxygen Saturation 97% 10/04/2018 2:51 AM EDT Inhaled Oxygen Concentration - - Weight 89.8 kg (198 lb) 12/27/2015 4:00 PM EDT Height 161.3 cm (5' 3.5 ) 12/27/2015 4:00 PM EDT Body Mass Index 34.52 12/27/2015 4:00 PM EDT Plan of Treatment Not on file Insurance [employer] [place] [employer] Care Teams Latin Professor Relationship Specialty Start Date End Date Mckinley Alfaro DO PCP - General Internal Medicine 10/04/18
--- OUTSIDE RECORDS SUMMARY | 2025-02-13 07:46 | XMS_ITS | Clinical Summary ---
Author Organization [employer] s tem Address [facility] [place]-[id number] [address] [place] [address] Care Team Providers Care Sanitarian Inspector Name Role Phone Unavailable Primary Care Provider Unavailabl e Allergies Active Allergy Reactions Criticality Noted Date Comments Adhesive Rash Low 01/08/2023 Penicillins Swelling,Eye Swelling 01/08/2023 Medications atenoloL (TENORMIN) 100 mg tablet Take 1 tablet (100 mg total) by mouth in the morning. Active meloxicam (MOBIC) 15 mg tablet Take 1 tablet (15 mg total) by mouth in the morning. Active hydroCHLOROthia zide (HYDRODIURIL) 25 mg tablet Take 1 tablet (25 mg total) by mouth daily. Active omeprazole (PriLOSEC) 20 mg capsule Take 1 capsule (20 mg total) by mouth daily as needed. Active biotin 1 mg capsule Take by mouth daily. Active cholecalciferol , vitamin D3, 5,000 units tablet Take 1 tablet (5,000 Units total) by mouth in the morning. Active calcium carbonate (OS-JULIANA) 600 mg (1,500 mg) tablet Take 1 tablet (600 mg total) by mouth daily with breakfast. Active magnesium oxide (MAGOX) 400 mg tablet Take 250 mg by mouth in the morning. Active Family History Medical History Relation Name Comments Diabetes Father Heart disease Father Heart disease Mother Heart failure Mother Relation Name Status Comments Father Mother Alive Social History Tobacco Use Types Packs/Day Years Used Date Smoking Tobacco: Never Smokeless Tobacco: Never Tobacco Cessation:Counseling Given: Not Answered Alcohol Use Standard Drinks/Week Comments Yes 0 (1 standard drink = 0.6 oz pur e alcohol) on special occassions- 1 drink Childcare Answer Date Recorded Childcare Unknown 10/30/2018 Employment Answer Date Recorded Employment Unknown 10/30/2018 Comments No Sex and Gender Information Value Date Recorded Sex Assigned at Not on file Legal Sex Female 11:43 AM EDT Gender Identity Not on file Sexual Orientation Not on file Last Filed Vital Signs Vital Sign Reading Time Taken Comments Blood Pressure 142/71 01/31/2023 2:37 PM EDT Pulse 68 01/31/2023 2:37 PM EDT Temperature 36.7 C (98.1 F) 01/31/2023 1:52 PM EDT Respiratory Rate 21 01/31/2023 2:37 PM EDT Oxygen Saturation 90% 01/31/2023 2:37 PM EDT Inhaled Oxygen Concentration - - Weight 90.3 kg (199 lb) 01/08/2023 2:49 PM EDT Height 160 cm (5' 3 ) 01/08/2023 2:49 PM EDT Body Mass Index 35.25 01/08/2023 2:49 PM EDT Plan of Treatment Health Maintenance Due Date Last Done Comments Depression Screening 1962 Tobacco Screening 1962 Zoster (Shingles) Vaccine (1 of 2) 2002 Fall Risk Screening 2017 Adult BMI Screening 01/09/2024 01/08/2023 Influenza Vaccine 01/19/2025 02/13/2021, , 02/19/2019, Additional history exists DTaP,Tdap and Td Vaccines (3 - Td or Tdap) 04/07/2032 04/07/2022, 01/01/2013 Medical Devices Implanted Type Area Needle Grinder Device Identifier Shelf Expiration Date Model / Serial / Lot Healicoil Regenesorb Implanted:Qty: 1 on 01/31/2023 by Rodney Hong DO at [facility] [place] Right: Shoulder [employer] 07/19/2025 [id number] / NA / [id number] Healicoil Regenesorb Implanted:Qty: 1 on 01/31/2023 by Rodney Hong DO at [facility] [place] Right: Shoulder [employer] 06/28/2025 [id number] / NA / [id number] Healicoil Knotless Regenesorb Implanted:Qty: 2 on 01/31/2023 by Rodney Hong DO at [facility] [place] Right: Shoulder [employer] 10/31/2025 [id number] / / [id number] Insurance MEDICARE [facility]
--- OUTSIDE RECORDS SUMMARY | 2025-02-13 07:47 | XMS_ITS | CCD ---
Author Organization [facility] Care Team Providers Care Work From Home Name Role Phone PHYSICIAN, DEFAULT Unavailable Unavailable PHYSICIAN, DEFAULT Unavailable Unavailable PHYSICIAN, DEFAULT Unavailable Unavailable PHYSICIAN, DEFAULT Unavailable Unavailable HARJIT OLIVIA Attending Unavailable SALEEM, MCKINLEY Dos Santos Primary Care Unavailable SALEEM, MCKINLEY Dos Santos Primary Care Unavailable Arabella Arechiga Unavailable SALEEM, [...] Unavailable BALL, DR LOPEZ Primary Care Unavailable Ball, Mckinley Unavailable DO Arnoldo Nixon Primary Care Provider MD Niurka Oliveira Attending Provider [phone] Keara Bullard Unavailable [phone] Mckinley Alfaro Unavailable Jen, Dr. Lopes Attending Unavailable Dinary, Dr. Lopes Referring Unavailable Ball, Dr. Mckinley Nair Primary Care Unavai lable Dinary, Dr. Lopes Admitting Unavailable Ball Mckinley BOSCH Primary Care Provider U YSABEL Villa Attending Unavailable APLING, JOHN B Referring Unavailable [...] Referring Unavailable ALEXDELL Attending Unavailable APLING, JOHN Mina Attending Unavailable APLING, JOHN B Referring Unavailable [...] Care Provider MD Tano Tsai Attending Provider Mckinley Alfaro DO Primary Care Provider Tano Tsai MD Attending Provider Tano Tsai Attending Unavailable Tano Tsai Admitting Unavailable Mckinley Alfaro Primary Care Unavailable Saleem DOMckinley Primary Care Provider [phone] Raya Hernandez APRN Attending Provider [phone] Mckinley Alfaro DO Attending Provider [phone] Mckinley Alfaro DO Primary Care Provider David HYDROELECTRIC MECHANICRaya Attending Provider [phone] Mckinley Alfaro DO Primary Care Provider [phone] Mckinley Alfaro DO Primary Care Provider [phone] Mckinley Alfaro DO Attending Provider [phone] Allergies Allergy Classification Reported Allergen(s) Allergy Type Date of Onset Reaction(s) Facility Adhesive Tape (1 source) Adhesive Tape Substance Allergy 10-30-19 24 Redness of Skin [facility] Dihydrofolate Reductase Inhibitors (antibiotic) (1 source) Trimethoprim Drug Allergy 10-30-19 24 Unknown Reaction [facility] Nitrofurantoin (1 source) Nitrofurantoin Drug Allergy 10-30-19 24 Comment:Macrob id [facility] Penicillins (antibiotic) (1 source) Penicillins Drug Allergy 10-30-19 24 Swelling of Lip/Tongue/Thr oat [facility] Sulfonamides (antibiotic) (1 source) Sulfamethoxazole Drug Allergy 10-30-19 24 Unknown Reaction [facility] tiZANidine (1 source) tiZANidine Drug Allergy 10-30-19 24 Insomnia [facility] (6 sources) Penicillin G Drug Allergy anaphylaxis [facility] Other (1 source) Penicillin Drug Allergy 01-23-20 15 [facility] Repository (15 sources) Adhesive Tape; Translations: [adhesive tape] Propensity to adverse reactions 02-24-20 17 Redness of Skin [facility] Comment on above: Onset Date: 04/19/20 16 (16 sources) Penicillins; Translations: [Penicillins] Allergy to substance 02-24-20 17 Swelling of Lip/Tongue/Thr oat [facility] Comment on above: Onset Date: 04/19/20 16 (6 sources) Adhesive Tape Drug allergy 04-19-20 16 Unknown [facility] Other (19 sources) Nitrofurantoin Drug Allergy 07-30-19 24 Comment:Macrob id [facility] (6 sources) Sulfamethoxazole / Trimethoprim Drug Allergy Unknown [facility] Other (6 sources) tiZANidine Comfort Pac *MUSCULOSKELETAL THERAPY AG Propensity to adverse reactions Comment:Could not sleep/rest. [facility] Other (6 sources) Substance with penicillin structure and antibacterial mechanism of action (substance) Drug allergy 04-19-20 16 Unknown [facility] [employer] [facility] [employer] Other (14 sources) Sulfamethoxazole; Translations: [sulfamethoxazole] Drug Allergy 07-30-19 Unknown Reaction [facility] (14 sources) tiZANidine; Translations: [tizanidine] Drug Allergy 07-30-19 24 Insomnia [facility] (14 sources) Trimethoprim; Translations: [trimethoprim] Drug Allergy 07-30-19 Unknown Reaction [facility] (1 source) Nitrofurantoin Drug Allergy 08-24-19 [facility] Repository (2 sources) Ciprofloxacin Drug Allergy 12-27-19 Mouth Sores [facility] Medications Current Medications Medication Drug Class(es) Dates Sig (Normalized) Sig (Original) [id number] actuat albuterol 0.09 mg/actuat metered dose inhaler (9 sources) beta2-Adrenergic Agonist Start: 08-23-2024 End: 10-03-2024 Albuterol Sulfate 90 mcg/actuation HFA aerosol inhaler Active 2 INH INHALATION EVERY 4-6 HOURS as needed for shortness of breath or wheezing 6.7 7 October 03, 2024 2:41pm Complies with drug therapy atenolol 100 mg oral tablet (20 sources) beta-Adrenergic Natacha Start: 08-29-2024 take 1 tablet by mouth once daily Atenolol 100 mg tablet Active 0 .ROUTE .COMPLEX August 29, 2024 7:47am TAKE 1 TABLET BY MOUTH EVERY DAY Complies with drug therapy Start: 08-23-2024 End: 08-29-2024 take 1 tablet by mouth once daily Atenolol 100 mg tablet Discontinued 100 MG PO Daily August 23, 2024 11:01am August 29, 2024 7:47am Start: 10-22-2023 End: 08-23-2024 take 1 tablet by mouth once daily Atenolol 100 mg tablet Discontinued 0 .ROUTE .COMPLEX October 22, 2023 4:46pm August 23, 2024 11:04am TAKE 1 TABLET BY MOUTH EVERY DAY [...] 1 tablet Orally Once a day Not-Taking/PRN benzonatate 200 mg oral capsule (8 sources) Non-narcotic Antitussive Start: 10-29-2024 End: 10-29-2024 take 1 capsule by mouth three times daily Benzonatate 200 mg capsule Active 200 MG PO Three times daily 19 03October 29, 2024 12:00am Complies with drug therapy biotin 1 mg oral tablet (20 sources) Start: 04-08-2018 End: 07-26-2023 take 1 tablet by mouth once daily Biotin 1 mg tablet Active 1 MG PO Daily July 26, 2023 2:47pm Complies with drug therapy Start: 02-23-2017 End: 08-24-2017 take 3 tablets by mouth once daily Biotin 1,000 mcg Tablet,Chewable Discontinued 3 TAB PO Daily February 23, 2017 12:00am August 24, 2017 7:39am take 1 tablet by romulo th every twenty-four hours Biotin Maximum Strength 53033 MCG 1 tablet Orally Once a day PRN Active take 1 tablet by romulo th every twenty-four hours Biotin Maximum Strength 27941 MCG 1 tablet Orally Once a day PRN Active Biotin Maximum Strength 09381 MCG (7 sources) take 1 tablet by romulo th once daily as needed Biotin Maximum Strength 68151 MCG 1 tablet Orally Once a day PRN Active take 1 tablet by mouth once gayla y Biotin Maximum Strength 12743 MCG 1 tablet Orally Once a day Active cholecalciferol 0.05 mg oral capsule (20 sources) Vitamin D Start: 03-17-2024 take 1 capsule by mouth once daily Cholecalciferol (Vitamin D3) 50 mcg (2,000 unit) capsule Active 100 MCG PO Daily 60 March 17, 2024 12:00am Complies with drug therapy Start: 09-28-2022 End: 07-26-2023 take 1 tablet by mouth once daily Cholecalciferol (Vitamin D3) (Vitamin D3) 25 mcg (1,000 unit) Tablet Discontinued 25 MCG PO Daily September 28, 2022 12:00am July 26, 2023 2:56pm dextromethorphan hydrobromide 10 mg / guaiFENesin 200 mg oral capsule (5 sources) Uncompetitive Q-pfohsx-Z-aspartate Receptor Antagonist, Sigma-1 Agonist Start: 10-03-2024 take 1 tablet by mouth every eight hours as needed for cough Dextromethorphan-Guaifenesin (Coricidin Hbp Chest Zeus-Cough) 10-200 mg capsule Active 1 TAB-CAP PO Every 8 hours as needed for cough 10 October 03, 2024 12:00am Complies with drug therapy doxycycline hyclate 100 mg oral capsule (10 sources) Tetracycline-class Drug Start: 12-26-2024 take 1 capsule by mouth twice daily Doxycycline Hyclate 100 mg capsule Active 100 MG PO Twice daily 6 December 26, 2024 12:00am Complies with drug therapy Start: 05-15-2024 End: 08-08-2024 take 1 capsule by mouth twice daily Doxycycline Hyclate 100 mg capsule Discontinued 100 MG PO Twice daily 14 May 15, 2024 1:00am August 08, 2024 8:40am fluconazole 150 mg oral tablet (3 sources) Azole Antifungal Start: 12-22-2024 take 1 tablet by mouth once daily Fluconazole 150 mg tablet Active 150 MG PO Daily 1 December 22, 2024 12:00am Complies with drug therapy hydroCHLOROthiazide 25 mg oral tablet (20 sources) Thiazide Diuretic Start: 08-23-2024 take 1 tablet by mouth once Hydrochlorothiazide 25 mg tablet Active 25 MG PO Once August 23, 2024 11:02am Complies with drug therapy Start: 03-10-2024 End: 08-23-2024 take 1 tablet by mouth once daily Hydrochlorothiazide 25 mg tablet Discontinued 0 .ROUTE .COMPLEX March 10, 2024 10:41am August 23, 2024 11:04am TAKE 1 TABLET BY MOUTH EVERY DAY Start: 09-28-2022 End: 03-10-2024 take 1 tablet by mouth once daily Hydrochlorothiazide 25 mg tablet Discontinued 25 MG PO Daily September 28, 2022 12:00am March 10, 2024 10:41am Inhalational Spacing Device (Aerochamber Mini) spacer (8 sources) Start: 10-29-2024 Inhalational S pacing Device (Aerochamber Mini) spacer Active 0 .ROUTE .MEDSUPPLY October 29, 2024 12:00am As directed Start: 10-29-2024 End: 10-29-2024 Inhalational Spacing Device (Aerochamber Mini) spacer Discontinued 0 .ROUTE .MEDSUPPLY October 29, 2024 12:00am October 29, 2024 11:06am As directed meloxicam 15 mg oral tablet (20 sources) Nonsteroidal Anti-inflammatory Drug Start: 08-23-2024 take 1 tablet by mouth once daily Meloxicam 15 mg tablet Active 15 MG PO Daily August 23, 2024 11:03am Complies with drug therapy Start: 06-01-2024 End: 08-23-2024 take 1 tablet by mouth once daily Meloxicam 15 mg tablet Discontinued 0 .ROUTE .COMPLEX 90 June 01, 2024 8:27pm August 23, 2024 11:04am TAKE 1 TABLET BY MOUTH EVERY DAY [...] (20 sources) Proton Pump Inhibitor Start: 07-26-2023 End: 08-23-2024 take 1 capsule by mouth once daily as needed Omeprazole 40 mg capsule,delayed release(DR/EC) Active 40 MG PO Daily as needed August 23, 2024 11:03am Complies with drug therapy Start: 08-24-2017 End: 07-26-2023 take 1 capsule by mouth once daily Omeprazole 20 mg Capsule,Delayed Release(Dr/Ec) Discontinued 20 MG PO Daily April 08, 2018 1:00am July 26, 2023 2:57pm Omeprazole 40 MG TAKE 1 CAPSULE BY MOUTH 30 MINUTES BEFORE MORNING MEAL EVERY DAY FOR 30 DAYS Orally Once a day for 90 days Active phentermine hydrochloride 37.5 mg oral tablet (6 sources) Sympathomimetic Amine Anorectic Start: 12-06-2024 End: 12-08-2024 take 1 tablet by mouth once daily 30 minutes after breakfast Phentermine (Adipex-P) 37.5 mg tablet Active 37.5 MG PO Daily December 08, 2024 5:54pm must administer 30 minutes before or 1-2 hours after breakfast Complies with drug therapy triamcinolone acetonide 0.005 mg/mg topical ointment (20 sources) Corticosteroid Start: 01-12-2025 Triamcinolone Acetonide 0.5 % ointment Active 1 APPLIC TOPICAL Twice daily 04 03January 12, 2025 2:53pm Complies with drug therapy Start: 07-26-2023 End: 01-12-2025 Triamcinolone Acetonide 0.5 % ointment Discontinued 1 APPLIC TOPICAL Twice daily as needed July 26, 2023 1:00am January 12, 2025 2:55pm Start: 03-08-2023 Triamcinolone Acetonide 0.5 % 1 application Externally Twice a day for 30 days Feb, Active Start: 11-01-2022 Kenalog-40 Oct, 40 mg 100 ml zoledronic acid 0.05 mg/ml injection (17 sources) Bisphosphonate Start: 07-26-2023 Zoledronic Nsfp-Wlwpzxqg-Cgwls (Reclast) 5 mg/100 mL piggyback Active EACH IV As Directed July 26, 2023 1:00am Complies with drug therapy Start: 05-03-2023 Reclast 5 MG/1 00ML as directed Intravenous Apr, Active Completed/Discontinued Medications Medication Drug Class(es) Dates Sig (Normalized) Sig (Original) acetaminophen 325 mg / HYDROcodone bitartrate 5 mg oral tablet (20 sources) Opioid Agonist Start: 07-26-2023 End: 01-12-2025 take 1 tablet by mouth twice daily as needed for pain Hydrocodone-Acetami nophen 5-325 mg tablet Discontinued 1 TAB PO Twice daily as needed for pain 60 30 January 29, 2024 March 17, 2024 5:31pm start 01/28 Start: 06-13-2023 take 1 tablet by romulo [...] for pain for 7 days Feb, Active Albuterol Sulfate 90 mcg/actuation HFA aerosol inhaler (2 sources) Start: 08-23-2024 End: 10-03-2024 Albuterol Sulfate 90 mcg/actuation HFA aerosol inhaler Discontinued 2 INH INHALATION EVERY 4-6 HOURS as needed for shortness of breath or wheezing 6.7 7 August 23, 2024 12:00am October 03, 2024 2:43pm Start: 08-23-2024 Albuterol Sulf ate 90 mcg/actuation HFA aerosol inhaler Active 2 INH INHALATION EVERY 4-6 HOURS as needed for shortness of breath or wheezing 6.7 7 August 23, 2024 12:00am aspirin 81 mg delayed release oral tablet (15 sources) Platelet Aggregation Inhibitor, Nonsteroidal Anti-inflammatory Drug Start: 04-02-2018 End: 09-28-2022 take 1 tablet by mouth once daily Aspirin (Aspir-81) 81 mg Tablet,Delayed Release (Dr/Ec) Discontinued 81 MG PO Daily April 02, 2018 1:00am September 28, 2022 7:46am Calcium (15 sources) Phosphate Binder, Calcium Start: 09-28-2022 End: [...] (Eliud-Mag) 200 mg calcium- 100 mg Tablet,Chewable (11 sources) Start: 02-23-2017 End: 08-24-2017 take 1 [...] 7:39am calcium carbonate 750 mg chewable tablet (20 sources) Start: 09-28-2022 End: 07-26-2023 take 1 [...] 24, 2017 12:00am October 21, 2018 8:46am ciprofloxacin 250 mg oral tablet (3 sources) Quinolone Antimicrobial Start: 12-22-2024 End: 12-26-2024 take 1 tablet by mouth every twelve hours Ciprofloxacin Hcl 250 mg tablet Discontinued 250 MG PO Every 12 hours 02 22December 22, 2024 12:00am December 26, 2024 12:36pm dimenhyDRINATE 50 mg oral tablet (20 sources) Start: 07-26-2023 End: 08-23-2024 take 1 tablet by mouth every six hours as needed Dimenhydrinate 50 mg tablet Discontinued 50 MG PO Every 6 hours as needed July 26, 2023 1:00am August 23, 2024 11:02am take 1 tablet by mouth every six hours Dramamine 50 MG 1 tablet as needed Orally every 6 hrs Active folic acid 1 mg oral tablet (10 sources) Start: 10-30-2023 End: 08-08-2024 take 1 tablet by mouth once daily Folic Acid 1 mg tablet Discontinued 1 MG PO Daily October 30, 2023 12:00am August 08, 2024 8:40am hydroCHLOROthiazide 12.5 mg / olmesartan medoxomil 20 mg oral tablet (15 sources) Thiazide Diuretic, Angiotensin 2 Receptor Natacha Start: 04-02-2018 End: 10-21-2018 take 1 tablet by mouth once daily Olmesartan-Hydroc hlorothiazide (Benicar Hct) 20-12.5 mg Tablet Discontinued 1 TAB PO Daily April 02, 2018 1:00am October 21, 2018 8:47am hydroCHLOROthiazide 12.5 mg / valsartan 80 mg oral tablet (20 sources) Thiazide Diuretic, Angiotensin 2 Receptor Natacha Start: 08-24-2017 End: 04-02-2018 take 1 tablet by mouth once daily Valsartan-Hydroch lorothiazide 80-12.5 mg Tablet Discontinued 1 TAB PO Daily August 24, 2017 12:00am April 02, 2018 10:59am Start: 02-23-2017 End: 04-20-2017 take 1 tablet by mouth once daily Valsartan-Hydrochlorothiazide 80-12.5 mg Tablet Discontinued 1 TAB PO Daily February 23, 2017 12:00am April 20, 2017 9:52am hydrocortisone 10 mg/ml / neomycin 3.5 mg/ml / polymyxin b [id number] unt/ml otic solution (12 sources) Aminoglycoside Antibacterial, Polymyxin-class Antibacterial, Corticosteroid Start: 03-09-2022 Fcygpldx-Ikhhcxzhs-CG [id number] 4 drops into affected ear Otic Three times a day for 7 day(s) Feb, Not-Taking/PRN inulin 2000 mg chewable tablet (15 sources) Start: 09-28-2022 End: 07-26-2023 take 1 tablet by mouth once daily Inulin (Fiber Gummies) 2 gram Tablet,Chewable Discontinued 1 GM PO Daily September 28, 2022 12:00am July 26, 2023 2:56pm leflunomide 20 mg oral tablet (5 sources) Antirheumatic Agent Start: 09-18-2024 End: 10-03-2024 take 1 tablet by mouth once daily Leflunomide 20 mg tablet Discontinued 20 MG PO Daily September 18, 2024 12:00am October 03, 2024 2:09pm levoFLOXacin 500 mg oral tablet (8 sources) Quinolone Antimicrobial Start: 10-29-2024 End: 11-18-2024 take 1 tablet by mouth once daily Levofloxacin 500 mg tablet Discontinued 500 MG PO Daily 7 October 29, 2024 12:00am October 29, 2024 11:06am Magnesium (15 sources) Start: 04-08-2018 End: 10-21-2018 take 1 tablet by mouth once daily Magnesium 250 mg Tablet Discontinued 250 MG PO Daily April 08, 2018 1:00am October 21, 2018 8:46am Start: 04-08-2018 End: 10-21-2018 take 250 mg by mouth once daily Magnesium Discontinued 250 MG PO Daily April 08, 2018 1:00am October 21, 2018 8:46am Meclizine (12 sources) Antiemetic Meclizine HCl MS N Not-Taking/PRN Meclizine HCl MS N Not-Taking Meclizine HCl MS N Active methotrexate 2.5 mg oral tablet (10 sources) Folate Analog Metabolic Inhibitor Start: 10-30-2023 [...] Multivitamin With Minerals (Hair,Skin And Nails) Tablet (15 sources) Start: 08-24-2017 End: 10-21-2018 take 1 tablet by mouth once daily Multivitamin With Minerals (Hair,Skin And Nails) Tablet Discontinued 1 TAB PO Daily August 24, 2017 12:00am October 21, 2018 8:46am [place] 0-Xvm-Afm-Fish Oil (Fish Oil) 1,000 mg (120 mg-180 mg) Capsule (15 sources) Start: 02-23-2017 End: 08-24-2017 take 1 capsule by mouth once daily [place] 8-Fgn-Kmg-Fish Oil (Fish Oil) 1,000 mg (120 mg-180 mg) Capsule Discontinued 1 CAP PO Daily February 23, 2017 12:00am August 24, 2017 7:39am [place] Red (15 sources) Start: 04-02-2018 End: 09-28-2022 take 1 tablet by mouth once daily [place] Red Discontinued 1 TAB PO Daily April 02, 2018 1:00am September 28, 2022 7:45am paxlovid (300/100) 20 x 150 mg & 10 x 100mg tablet therapy pack (3 sources) Start: 09-06-2022 take 3 tablets by mouth every twelve hours Paxlovid (300/100) 20 x 150 MG & 10 x 100MG 3 tablets Orally Twice a day for 5 day(s) Aug, Not-Taking/PRN potassium chloride 10 meq extended release oral capsule (20 sources) Start: 04-29-2024 End: 08-23-2024 take 1 capsule by mouth twice daily Potassium Chloride 10 mEq capsule, extended release Discontinued 10 MEQ PO Twice daily April 29, 2024 12:05pm August 23, 2024 11:03am Start: 07-26-2023 End: 04-29-2024 take 1 capsule by mouth once daily Potassium Chloride 10 mEq capsule, extended release Discontinued 10 MEQ PO Daily July 26, 2023 1:00am April 29, 2024 12:05pm Start: 05-17-2023 take 1 capsule by [facility] every twenty-four hours Potassium Chloride ER 10 MEQ 1 capsule with food Orally Once a day for 30 days Apr, Active predniSONE 20 mg oral tablet (20 sources) Start: 12-22-2024 End: 01-12-2025 Prednisone 20 mg tablet Discontinued 20 MG PO .COMPLEX 16 December 22, 2024 6:28pm January 12, 2025 2:55pm 20 mg orally; 1 PO tid w/ food x 2 days then bid w/ food x 3 days then qd w/ food x 4 days Start: 10-03-2024 End: 12-22-2024 take 2 tablets by mouth once daily Prednisone 20 mg tablet Discontinued 40 MG PO Daily 10 October 03, 2024 12:00am December 22, 2024 2:19pm Start: 05-15-2024 End: 08-08-2024 take 2 tablets by mouth once daily Prednisone 20 mg tablet Discontinued 20 MG PO .COMPLEX May 15, 2024 1:00am August 08, 2024 8:40am Take 2 tabs po daily x 5 days Start: 06-13-2023 predniSONE 20 MG 1 tablet Orally bid w/ food x 5 days then qd w/ food x 5 days for 10 days May, Active Semaglutide (8 sources) Start: 04-30-2024 End: 08-23-2024 Semaglutide (Ozempic) 0.25 m g or 0.5 mg (2 mg/3 mL) pen injector Discontinued 0.25 MG SUBCUT every week 3 April 30, 2024 1:00am August 23, 2024 11:04am for 4 weeks Start: 04-30-2024 Semaglutide (O zempic) 0.25 mg or 0.5 mg (2 mg/3 mL) pen injector Active 0.25 MG SUBCUT every week 3 April 30, 2024 1:00am for 4 weeks traMADol hydrochloride 50 mg oral tablet (20 sources) Opioid Agonist Start: 09-28-2022 End: 07-26-2023 [...] [Diaphragmatic hernia without obstruction or gangrene] Episodic Acute bronchitis (3 sources) Acute infective bronchitis; Translations: [Acute bronchitis due to other specified organisms] 10-29-2024 Episodic Allergic reactions (4 sources) Allergic contact dermatitis; Translations: [Allergic contact dermatitis, unspecified cause] 12-22-2024 Episodic Chronic obstructive pulmonary disease and bronchiectasis (8 sources) Bronchitis; Translations: [Bronchitis, not specified as acute or chronic] 10-03-2024 Episodic Complications of surgical procedures or medical care (15 sources) Non-healing surgical wound; Translations: [Other complications of procedures, not elsewhere classified, initial encounter] 08-24-2017 Episodic Comment on above: 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 Conditions associated with dizziness or vertigo (8 sources) Benign paroxysmal positional vertigo; Translations: [Benign paroxysmal vertigo, unspecified ear] 03-13-2024 Episodic Diabetes mellitus without complication (17 sources) Impaired fasting glycemia; Translations: [Impaired fasting glucose] 04-30-2024 Episodic Disorders of lipid metabolism (8 sources) Hypercholesterolemia; Translations: [Pure hypercholesterolemia, unspecified] 08-08-2024 Chronic Esophageal disorders (20 sources) Gastroesophageal reflux disease; Translations: [Gastro-esophageal reflux disease without esophagitis] Chronic Comment on above: Problem List clean-u p per request of Phys. EHR Cmte Essential hypertension (20 sources) Essential hypertension; Translations: [Essential (primary) hypertension] Onset: 2 Chronic Gastritis and duodenitis (12 sources) Atrophic gastritis; Translations: [Unspecified chronic gastritis without bleeding] Chronic Genitourinary symptoms and ill-defined conditions (4 sources) Polyuria; Translations: [Polyuria] 10-29-2024 Episodic Immunizations and screening for infectious disease (1 source) Encounter for screening for human papillomavirus (HPV); Translations: [ENC SCREENING HUMAN PAPILLOMAVIRUS] Onset: 3 Episodic Mycoses (3 sources) Candidiasis of vagina; Translations: [Monilial vaginitis] 12-22-2024 Episodic Neoplasms of unspecified nature or uncertain behavior (1 source) Submucosal tumor of duodenum; Translations: [Neoplasm of unspecified nature of digestive system] Episodic Nonmalignant breast conditions (8 sources) Breast lump; Translations: [Unspecified lump in the left breast, unspecified quadrant] 04-15-2024 Episodic Nutritional deficiencies (2 sources) Vitamin D deficiency; Translations: [Vitamin D deficiency, unspecified] Chronic Osteoarthritis (20 sources) Osteoarthritis of joint of right shoulder region; Translations: [Primary osteoarthritis, right shoulder] Chronic Osteoporosis (20 sources) Senile osteoporosis; Translations: [Age-related osteoporosis without current pathological fracture] Onset: Chronic Comment on above: Reclast: first dose 04/2023 Other aftercare (18 sources) Drug therapy finding; Translations: [medical terminologist (current) use of opiate analgesic] 10-30-2023 Episodic Other aftercare (6 sources) medical terminologist (current) use of opiate analgesic; Translations: [Long-term (current) use of other medications] 01-29-2024 Episodic Other aftercare (4 sources) Taking high risk medication; Translations: [Other watermelon inspector (current) drug therapy] 08-08-2024 Episodic Other and unspecified benign neoplasm (8 sources) Benign neoplasm of stomach; Translations: [Polyp of stomach and duodenum] Episodic Other and unspecified benign neoplasm (2 sources) Polyp of stomach and duodenum; Translations: [Polyp of stomach and duodenum] Onset: Episodic Other and unspecified benign neoplasm (1 source) Mass of digestive structure; Translations: [Polyp of stomach and duodenum] 12-21-2022 Episodic Other connective tissue disease (17 sources) Fibromyalgia; Translations: [Fibromyalgia] 10-28-2023 Episodic Other connective tissue disease (1 source) Unspecified disorder of synovium and tendon, unspecified site Episodic Other connective tissue disease (10 sources) Dupuytren's contracture; Translations: [Palmar fascial fibromatosis [Dupuytren]] 07-30-2023 Episodic Other connective tissue disease (14 sources) Triggering of digit; Translations: [Trigger finger, unspecified finger] 07-30-2023 Episodic Other connective tissue disease (3 sources) Palmar fascial fibromatosis [Dupuytren]; 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] 07-30-2023 Episodic Other connective tissue disease (4 sources) Trigger finger, unspecified finger; Translations: [Trigger finger (acquired)] 07-30-2023 Episodic Other connective tissue disease (4 sources) Fibromyalgia; Translations: [Myalgia and myositis, unspecified] 10-30-2023 Episodic Other connective tissue disease (4 sources) Dupuytren contracture of right palm; Translations: [Palmar fascial fibromatosis [Dupuytren]] 07-30-2023 Episodic Other ear and sense organ disorders (1 source) Impacted cerumen, right ear Episodic Other ear and sense organ disorders (8 sources) Impacted cerumen in right ear; Translations: [Impacted cerumen, right ear] 11-18-2024 Episodic Other gastrointestinal disorders (20 sources) Irritable bowel syndrome characterized by constipation; Translations: [Irritable bowel syndrome with constipation] 07-26-2023 Chronic Other gastrointestinal disorders (1 source) Irritable bowel syndrome with constipation Chronic Other gastrointestinal disorders (19 sources) Dysphagia; Translations: [Dysphagia, unspecified] 09-28-2022 Episodic Comment on above: Problem List clean-u p per request of Phys. EHR Cmte Other gastrointestinal disorders (4 sources) Heartburn; Translations: [Heartburn] Episodic Other gastrointestinal disorders (7 sources) Constipation; Translations: [Constipation, unspecified] Episodic Other gastrointestinal disorders (1 source) Dysphagia, unspecified; Translations: [Dysphagia, unspecified] 09-28-2022 Episodic Other inflammatory condition of skin (20 sources) Psoriatic arthritis; Translations: [Arthropathic psoriasis, unspecified] 09-18-2023 Chronic Other inflammatory condition of skin (7 sources) Arthropathic psoriasis, unspecified; Translations: [Psoriatic arthropathy] 01-29-2024 Chronic Other inflammatory condition of skin (1 source) Seborrheic dermatitis, unspecified Episodic Other inflammatory condition of skin (1 source) Pruritus of skin; Translations: [Pruritus, unspecified] 01-12-2025 Episodic Other lower respiratory disease (3 sources) Cough; Translations: [Cough] 10-29-2024 Episodic Other nervous system disorders (8 sources) Chronic pain; Translations: [Other chronic pain] Chronic Other nervous system disorders (1 source) Other chronic pain Chronic Other non-traumatic joint disorders (1 source) Pain in right shoulder Episodic Other non-traumatic joint disorders (3 sources) Pain in right hip Episodic Other non-traumatic joint disorders (4 sources) [...] Chronic Other nutritional; endocrine; and metabolic disorders (14 sources) Obesity caused by energy imbalance; Translations: [Morbid (severe) obesity due to excess calories] 07-26-2023 Chronic Other nutritional; endocrine; and metabolic disorders (9 sources) Obesity; Translations: [Obesity, unspecified] 11-18-2024 Chronic Other screening for suspected conditions (not mental disorders or infectious disease) (15 sources) Encounter for screening mammogram for malignant neoplasm of breast; Translations: [Encounter for screening for malignant neoplasm of cervix] Onset: 3 Episodic Other upper respiratory disease (4 sources) Sinusitis; Translations: [Allergic rhinitis, unspecified] Chronic Other upper respiratory disease (1 source) Allergic rhinitis, unspecified Chronic Other upper respiratory infections (10 sources) Acute maxillary sinusitis, unspecified; Translations: [Acute maxillary sinusitis] 05-15-2024 Episodic Residual codes; unclassified (12 sources) Family history of cancer of colon; Translations: [Family history of malignant neoplasm of digestive organs] Episodic Residual codes; unclassified (1 source) Asymptomatic menopausal state; Translations: [ASYMPTOMATIC MENOPAUSAL STATE] Onset: 3 Episodic Residual codes; unclassified (15 sources) Edema of left lower limb; Translations: [Localized edema] 08-24-2017 Episodic Rheumatoid arthritis and related disease (20 sources) Inflammatory polyarthropathy; Translations: [Inflammatory polyarthropathy] Chronic [...] initial encounter] Onset: 2 Episodic Thyroid disorders (19 sources) Hypothyroidism; Translations: [Hypothyroidism, unspecified] Onset: 5 07-30-2023 Chronic Urinary tract infections (6 sources) Urinary tract infectious disease; Translations: [Urinary tract infection, site not specified] 10-29-2024 Episodic Past or Other Problems Problem Classification [...] Laboratory - Chemistry and C hemistry - challengeOrdered By: Mckinley Alfaro on 12-22-2024 Bilirubin Ql (U) Negative [facility] Glucose (U) [Mass/Vol] Negative [facility] Ketones Ql (U) Negative [facility] pH (U) 5.0 [pH] [facility] Specific gravity (U) [Rel density] 1.015 [facility] Urobilinogen (U) [Mass/Vol] 0.2 mg/dL [facility] Laboratory - Specimen inform ationOrdered By: Mckinley Alfaro on 12-22-2024 Appearance (U) clear [facility] Color (U) darkyellow [facility] Laboratory - UrinalysisOrder ed By: Mckinley Alfaro on 12-22-2024 Leukocyte esterase Test strip Ql (U) ++ [facility] Nitrite Ql (U) Negative [facility] Protein Ql (U) + [facility] No Panel InformationOrdered By: Mckinley Alfaro on 12-22-2024 Urine Occult Blood + [facility] Laboratory - Chemistry and C hemistry - challengeon 10-29-2024 Bilirubin Ql (U) Negative [facility] Glucose (U) [Mass/Vol] Negative [facility] Ketones Ql (U) Negative [facility] pH (U) 6.0 [pH] [facility] Specific gravity (U) [Rel density] 1.010 [facility] Urobilinogen (U) [Mass/Vol] 0.2 mg/dL [facility] Laboratory - Specimen inform ationon 10-29-2024 Appearance (U) cloudy [facility] Color (U) yellow [facility] Laboratory - Urinalysison Leukocyte esterase Test strip Ql (U) +++ [facility] Nitrite Ql (U) Negative [facility] Protein Ql (U) 30 [facility] No Panel Informationon 10-29 Urine Occult Blood + [facility] Alanine aminotransferase [En zymatic activity/volume] in Serum or PlasmaOrdered By: Tano Tsai on 09-16-2024 ALT [Catalytic activity/Vol] Alanine aminotransferase [Enzymatic activity/volume] in Serum or Plasma 7-52 [facility] Albumin [Mass/volume] in Ser um or Plasma by Bromocresol green (BCG) dye binding methoOrdered By: Tano Tsai on 09-16-2024 Albumin BCG dye [Mass/Vol] Albumin [Mass/volume] in Serum or Plasma by Bromocresol green (BCG) dye binding metho 3.5-5.7 [facility] Albumin BCG dye [Mass/Vol] 4.1 g/dL 3.5-5.7 [facility] Alkaline phosphatase [Enzyma tic activity/volume] in Serum or PlasmaOrdered By: Tano Tsai on 09-16-2024 ALP [Catalytic activity/Vol] Alkaline phosphatase [Enzymatic activity/volume] in Serum or Plasma 34-104 [facility] Aspartate aminotransferase [ Enzymatic activity/volume] in Serum or PlasmaOrdered By: Tano Tsai on 09-16-2024 AST [Catalytic activity/Vol] Aspartate aminotransferase [Enzymatic activity/volume] in Serum or Plasma 13-39 [facility] Basophils Auto (Bld) [#/Vol] Ordered By: Tano Tsai on 09-16-2024 Basophils (Bld) [#/Vol] Automated basoph il count 0.0-0.2 [facility] Basophils/100 WBC Auto (Bld) Ordered By: Tano Tsai on 09-16-2024 Basophils/100 WBC (Bld) Automated basophil % . [facility] Bilirubin.direct [Mass/volum e] in Serum or PlasmaOrdered By: Tano Tsai on 09-16-2024 Bilirubin.direct [Mass/Vol] Bilirubin.direct [Mass/volume] in Serum or Plasma 0.03-0.18 [facility] Bilirubin.direct [Mass/Vol] 0.10 mg/dL 0.03-0.18 [facility] Bilirubin.total [Mass/volume ] in Serum or PlasmaOrdered By: Tano Tsai on 09-16-2024 Bilirubin [Mass/Vol] Bilirubin.total [Mass/volume] in Serum or Plasma 0.3-1.0 [facility] Complete Blood Count Auto Di ffOrdered By: Tano Tsai on 09-16-2024 Basophils (Bld) [#/Vol] 0.0 10*3/uL 0.0-0.2 [facility] Comment on above: Performed By: #### E SR, CREAT, HEPATIC, CBC #### [facility] [address] [place] [address] [place] Basophils/100 WBC (Bld) 0.7 % . [facility] Comment on above: Performed By: #### E SR, CREAT, HEPATIC, CBC #### [facility] [address] [place] [id number] [place] Eosinophils (Bld) [#/Vol] 0.3 10*3/uL 0.0-0.45 [facility] Comment on above: Performed By: #### E SR, CREAT, HEPATIC, CBC #### [facility] [address] [place] [id number] [place] Eosinophils/100 WBC (Bld) 4.5 % . [facility] Comment on above: Performed By: #### E SR, CREAT, HEPATIC, CBC #### [facility] [address] [place] [address] Erythrocyte distribution width (RBC) [Ratio] 14.3 % 11.9-15.3 [facility] Comment on above: Performed By: #### E SR, CREAT, HEPATIC, CBC #### [facility] [address] [place] [address] Hematocrit (Bld) [Volume fraction] 37.6 % 34.0-46.4 [facility] Comment on above: Performed By: #### E SR, CREAT, HEPATIC, CBC #### [address] Hemoglobin (Bld) [Mass/Vol] 12.4 g/dL 11.8-15.4 [facility] Comment on above: Performed By: #### E SR, CREAT, HEPATIC, CBC #### [address] Lymphocytes (Bld) [#/Vol] 1.7 10*3/uL 1.00-4.8 [facility] Comment on above: Performed By: #### E SR, CREAT, HEPATIC, CBC #### [address] Lymphocytes/100 WBC (Bld) 23.8 % . [facility] Comment on above: Performed By: #### E SR, CREAT, HEPATIC, CBC #### [facility] [address] [place] [address] MCH (RBC) [Entitic mass] 28.0 pg 24.7-34.3 [facility] Comment on above: Performed By: #### E SR, CREAT, HEPATIC, CBC #### [facility] [address] [place] [address] MCV (RBC) [Entitic vol] 84.8 fL 80-100 [facility] Comment on above: Performed By: #### E SR, CREAT, HEPATIC, CBC #### [facility] [address] [place] [address] Monocytes (Bld) [#/Vol] 0.7 10*3/uL 0.0-0.8 [facility] Comment on above: Performed By: #### E SR, CREAT, HEPATIC, CBC #### [facility] [address] [place] [address] Monocytes/100 WBC (Bld) 9.8 % . [facility] Comment on above: Performed By: #### E SR, CREAT, HEPATIC, CBC #### [facility] [address] [place] [address] Neutrophils (Bld) [#/Vol] 4.2 10*3/uL 1.8-7.7 [facility] Comment on above: Performed By: #### E SR, CREAT, HEPATIC, CBC #### [address] Neutrophils/100 WBC (Bld) 61.2 % . [facility] Comment on above: Performed By: #### E SR, CREAT, HEPATIC, CBC #### [address] Platelet mean volume (Bld) [Entitic vol] 11.1 fL High 6.3-10.7 [facility] Comment on above: Performed By: #### E SR, CREAT, HEPATIC, CBC #### [address] Platelets (Bld) [#/Vol] 247 10*3/uL 150-450 [facility] Comment on above: Performed By: #### E SR, CREAT, HEPATIC, CBC #### [address] RBC (Bld) [#/Vol] 4.44 10*6/uL 3.60-5.00 [facility] Comment on above: Performed By: #### E SR, CREAT, HEPATIC, CBC #### [address] WBC (Bld) [#/Vol] 7.0 10*3/uL 3.8-11.6 [facility] Comment on above: Performed By: #### E SR, CREAT, HEPATIC, CBC #### [facility] [address] [place] [address] Complete Blood Count Auto Di ffon 09-16-2024 Mean Corpuscular HGB Conc 33.0 g/dL Normal 32.0-35.0 [facility] Comment on above: Performed By: #### E SR, CREAT, HEPATIC, CBC #### [facility] [address] [place] [address] NRBC% 0.1 /100{WBC} Normal 0-0.5 [facility] Comment on above: Performed By: #### E SR, CREAT, HEPATIC, CBC #### [facility] [address] [place] [address] CreatinineOrdered By: Tano Tsai on 09-16-2024 Creatinine [Mass/Vol] 0.74 mg/dL 0.60-1.20 [facility] Comment on above: Performed By: #### E SR, CREAT, HEPATIC, CBC #### [facility] [address] [place] [address] Creatinineon 09-16-2024 GFR/1.73 sq M.predicted MDRD (S/P/Bld) [Vol rate/Area] mL/min/{1.73_m2} Normal [facility] Comment on above: Result Comment: PERF ORMED BY: [place] [address] PATHOLOGIST [employer] MARINA KEENAN M.D. Performed By: #### E SR, CREAT, HEPATIC, CBC #### [facility] [address] [place] [address] Creatinine [Mass/volume] in Serum or PlasmaOrdered By: Tano Tsai on 09-16-2024 Creatinine [Mass/Vol] Creatinine [Mass/volume] in Serum or Plasma 0.60-1.20 [facility] Eosinophils Auto (Bld) [#/Vo l]Ordered By: Tano Tsai on 09-16-2024 Eosinophils (Bld) [#/Vol] Automated eosinophil count 0.0-0.45 [facility] Eosinophils/100 WBC Auto (Bl d)Ordered By: Tano Tsai on 09-16-2024 Eosinophils/100 WBC (Bld) Automated eosinophil % . [facility] Erythrocyte Sedimentation Ra lilo 09-16-2024 ESR (Bld) [Velocity] 27 mm/h Normal 0-29 [facility] Comment on above: Result Comment: PERF ORMED BY: [place] [address] PATHOLOGIST [employer]END[employer] MARINA KEENAN M.D. Performed By: #### E SR, CREAT, HEPATIC, CBC #### [facility] [address] Erythrocyte distribution wid th Auto (RBC) [Ratio]Ordered By: Tano Tsai on 09-16-2024 Erythrocyte distribution width (RBC) [Ratio] Erythrocyte distribution width [Ratio] by Automated count 11.9-15.3 [facility] Erythrocyte sedimentation ra te by Photometric methodOrdered By: Tano Tsai on 09-16-2024 ESR Photometric method (Bld) [Velocity] Erythrocyte sedimentation rate by Photometric method 0- [facility] ESR Photometric method (Bld) [Velocity] 27 mm/hr 0- [facility] Globulin Calc (S) [Mass/Vol] Ordered By: Tano Tsai on 09-16-2024 Globulin (S) [Mass/Vol] Serum globulin measurement by calculation (mass/volume) [facility] Hematocrit Auto (Bld) [Volum e fraction]Ordered By: Tano Tsai on 09-16-2024 Hematocrit (Bld) [Volume fraction] Hematocrit [Volume Fraction] of Blood by Automated count 34.0-46.4 [facility] Hemoglobin [Mass/volume] in BloodOrdered By: Tano Tsai on 09-16-2024 Hemoglobin (Bld) [Mass/Vol] Hemoglobin [Mass/volume] in Blood 11.8-15.4 [facility] Hepatic Panelon 09-16-2024 Albumin [Mass/Vol] 4.1 g/dL Normal 3.5-5.7 [facility] Comment on above: Performed By: #### E SR, CREAT, HEPATIC, CBC #### [address] Bilirubin,Indirect 0.5 mg/dL Normal [facility] Comment on above: Performed By: #### E SR, CREAT, HEPATIC, CBC #### [address] Bilirubin.indirect [Mass/Vol] 0.10 mg/dL Normal 0.03-0.18 [facility] Comment on above: Performed By: #### E SR, CREAT, HEPATIC, CBC #### [address] Hepatic PanelOrdered By: Jesus Tsai on 09-16-2024 Albumin/Globulin [Mass ratio] 1.5 {ratio} [facility] Comment on above: Performed By: #### E SR, CREAT, HEPATIC, CBC #### [address] ALP [Catalytic activity/Vol] 98 U/L 34-104 [facility] Comment on above: Performed By: #### E SR, CREAT, HEPATIC, CBC #### [address] ALT [Catalytic activity/Vol] 17 U/L 7-52 [facility] Comment on above: Performed By: #### E SR, CREAT, HEPATIC, CBC #### [address] AST [Catalytic activity/Vol] 20 U/L 13-39 [facility] Comment on above: Performed By: #### E SR, CREAT, HEPATIC, CBC #### [address] Bilirubin [Mass/Vol] 0.6 mg/dL 0.3-1.0 [facility] Comment on above: Performed By: #### E SR, CREAT, HEPATIC, CBC #### [facility] [address] [place] [address] Globulin (S) [Mass/Vol] 2.7 g/dL [facility] Comment on above: Performed By: #### E SR, CREAT, HEPATIC, CBC #### [facility] [address] [place] [phone] [place] Protein [Mass/Vol] 6.8 g/dL 6.4-8.9 [facility] Comment on above: Performed By: #### E SR, CREAT, HEPATIC, CBC #### [facility] [address] Leukocytes [#/volume] correc loan for nucleated erythrocytes in Blood by Automated counOrdered By: Tano Tsai on 09-16-2024 WBC corrected for nucl RBC Auto (Bld) [#/Vol] Leukocytes [#/volume] corrected for nucleated erythrocytes in Blood by Automated coun 3.8-11.6 [facility] WBC corrected for nucl RBC Auto (Bld) [#/Vol] 7.0 10*3/uL 3.8-11.6 [facility] Lymphocytes Auto (Bld) [#/Vo l]Ordered By: Tano Tsai on 09-16-2024 Lymphocytes (Bld) [#/Vol] Lymphocytes [#/volume] in Blood by Automated count 1.00-4.8 [facility] Lymphocytes/100 WBC Auto (Bl d)Ordered By: Tano Tsai on 09-16-2024 Lymphocytes/100 WBC (Bld) Lymphocytes/100 leukocytes in Blood by Automated count . [facility] MCH Auto (RBC) [Entitic mass ]Ordered By: Tano Tsai on 09-16-2024 MCH (RBC) [Entitic mass] MCH [Entitic mass] by Automated count 24.7-34.3 [facility] MCHC Auto (RBC) [Mass/Vol]Or dered By: Tano Tsai on 09-16-2024 MCHC (RBC) [Mass/Vol] MCHC [Mass/volume] by Automated count 32.0-35.0 [facility] MCHC (RBC) [Mass/Vol] 33.0 g/dL 32.0-35.0 [facility] MCV Auto (RBC) [Entitic vol] Ordered By: Tano Tsai on 09-16-2024 MCV (RBC) [Entitic vol] MCV [Entitic vol ume] by Automated count 80-100 [facility] Monocytes Auto (Bld) [#/Vol] Ordered By: Tano Tsai on 09-16-2024 Monocytes (Bld) [#/Vol] Automated blood monocyte count 0.0-0.8 [facility] Monocytes/100 WBC Auto (Bld) Ordered By: Tano Tsai on 09-16-2024 Monocytes/100 WBC (Bld) Automated monocyte % . [facility] Neutrophils Auto (Bld) [#/Vo l]Ordered By: Tano Tsai on 09-16-2024 Neutrophils (Bld) [#/Vol] Neutrophils [#/volume] in Blood by Automated count 1.8-7.7 [facility] Neutrophils/100 WBC Auto (Bl d)Ordered By: Tano Tsai on 09-16-2024 Neutrophils/100 WBC (Bld) Automated neutrophil % . [facility] No Panel InformationOrdered By: Tano Tsai on 09-16-2024 Estimated GFR (CKD-EPI) > 60.0 mL/Min [facility] Creatinine Clearance (Chem N/A [facility] Nucleated erythrocytes [Pres ence] in Blood by Automated countOrdered By: Tano Tsai on 09-16-2024 Nucleated RBC Auto Ql (Bld) Nucleated erythrocytes [Presence] in Blood by Automated count 0-0.5 [facility] Nucleated RBC Auto Ql (Bld) 0.1 /100{WBC} 0-0.5 [facility] Platelet mean volume Auto (B ld) [Entitic vol]Ordered By: Tano Tsai on 09-16-2024 Platelet mean volume (Bld) [Entitic vol] Platelet mean volume [Entitic volume] in Blood by Automated count High 6.3-10.7 [facility] Platelets Auto (Bld) [#/Vol] Ordered By: Tano Tsai on 09-16-2024 Platelets (Bld) [#/Vol] Platelets [#/vol ume] in Blood by Automated count 150-450 [facility] Protein [Mass/volume] in Ser um or PlasmaOrdered By: Tano Tsai on 09-16-2024 Protein [Mass/Vol] Protein [Mass/volume ] in Serum or Plasma 6.4-8.9 [facility] RBC Auto (Bld) [#/Vol]Ordere d By: Tano Tsai on 09-16-2024 RBC (Bld) [#/Vol] Erythrocytes [#/volume] in Blood by Automated count 3.60-5.00 [facility] Serum or plasma albumin/glob ulin mass ratioOrdered By: Tano Tsai on 09-16-2024 Albumin/Globulin [Mass ratio] Serum or plasma albumin/globulin mass ratio [facility] Serum or plasma non-glucuron idated bilirubin measurement (mass/volume)Ordered By: Tano Tsai on 09-16-2024 Bilirubin.indirect [Mass/Vol] Serum or plasma non-glucuronidated bilirubin measurement (mass/volume) [facility] Bilirubin.indirect [Mass/Vol] 0.5 mg/dL [facility] WBC Auto (Bld) [#/Vol]Ordere d By: Tano Tsai on 09-16-2024 WBC (Bld) [#/Vol] Leukocytes [#/volume ] in Blood by Automated count 3.8-11.6 [facility] COVID Cepheidon 08-23-2024 SARS-CoV-2 (COVID-19) RNA HTUY+probe Ql (Unsp spec) Negative [facility] SARS-CoV-2 (COVID-19) RNA THUY+probe Ql (Unsp spec) COVID Cepheid [facility] No Panel Informationon 08-23 POC Influenza A (PCR) Negative [facility] POC Influenza B (PCR) Negative [facility] Basophils Auto (Bld) [#/Vol] on 08-12-2024 Basophils (Bld) [#/Vol] Automated basoph il count 0.0-0.1 [facility] Basophils/100 WBC Auto (Bld) on 08-12-2024 Basophils/100 WBC (Bld) Automated basophil % 0. 2-2.0 [facility] Cholesterol in LDL Calc [Mas s/Vol]on 08-12-2024 Cholesterol in LDL [Mass/Vol] Cholesterol in LDL [Mass/volume] in Serum or Plasma by calculation [facility] Comment on above: <100 mg/dl [id number] 0-129 mg/dl NEAR OR ABOVE [id number] mg/dl BORDERLINE [id number] mg/dl HIGH>190 mg/dl VERY HIGH Cholesterol in VLDL Calc [Ma ss/Vol]on 08-12-2024 Cholesterol in VLDL [Mass/Vol] Cholesterol in VLDL [Mass/volume] in Serum or Plasma by calculation [facility] Eosinophils/100 WBC Auto (Bl d)on 08-12-2024 Eosinophils/100 WBC (Bld) Automated eosinophil % 0.9-7.0 [facility] Erythrocyte distribution wid th Auto (RBC) [Ratio]on 08-12-2024 Erythrocyte distribution width (RBC) [Ratio] Erythrocyte distribution width [Ratio] by Automated count 11.0-15.0 [facility] Estimated glomerular filtrat ion rate (GFR) non- Americanon 08-12-2024 GFR/1.73 sq M.predicted among non-blacks MDRD (S/P/Bld) [Vol rate/Area] Estimated glomerular filtration rate (GFR) non- >=60 mL/min/1.73m 2 [facility] Globulin Calc (S) [Mass/Vol] on 08-12-2024 Globulin (S) [Mass/Vol] Serum globulin measurement by calculation (mass/volume) [facility] Glucose mean value [Mass/vol ume] in Blood Estimated from glycated hemoglobinon 08-12-2024 Average glucose Estimated from glycated hemoglobin (Bld) [Mass/Vol] Glucose mean value [Mass/volume] in Blood Estimated from glycated hemoglobin [facility] Hematocrit Auto (Bld) [Volum e fraction]on 08-12-2024 Hematocrit (Bld) [Volume fraction] Hematocrit [Volume Fraction] of Blood by Automated count 36.0-48.0 [facility] Hemoglobin A1c percentageon 08-12-2024 HbA1c (Bld) [Mass fraction] Hemoglobin A1c percentage 4.5-6.2 [facility] Comment on above: ADA RECOMMENDED LIMI T 4.0 - 6.0ADA THERAPEUTIC TARGET < 7.0ACTION SUGGESTED> 7.0 Hemoglobin [Mass/volume] in Bloodon 08-12-2024 Hemoglobin (Bld) [Mass/Vol] Hemoglobin [Mass/volume] in Blood 12.0-16.0 [facility] Laboratory - Chemistry and C hemistry - challengeon 08-12-2024 Albumin [Mass/Vol] 3.4 g/dL 3.4-5.0 [facility] ALP [Catalytic activity/Vol] 99 U/L 46-116 [facility] ALT [Catalytic activity/Vol] 28 U/L 14-59 [facility] AST [Catalytic activity/Vol] 22 U/L 15-37 [facility] Bilirubin [Mass/Vol] 0.7 mg/dL 0.2-1.0 [facility] Calcium [Mass/Vol] 8.7 mg/dL 8.5-10.1 [facility] Chloride [Moles/Vol] 105 mmol/L 98-107 [facility] Cholesterol [Mass/Vol] 139 mg/dL <=200 [facility] Cholesterol in HDL [Mass/Vol] 53 mg/dL 40-60 [facility] Comment on above: > or =60 mg/dl - LOW CARDIOVASCULAR RISK<40 mg/dl - HIGH CARDIOVASCULAR RISK CO2 [Moles/Vol] 32.3 mmol/L High 21.0-32.0 [facility] Creatinine [Mass/Vol] 0.90 mg/dL 0.55-1.02 [facility] GFR/1.73 sq M.predicted MDRD (S/P/Bld) [Vol rate/Area] mL/min/{1.73_m2} >=60 mL/min/1.73m 2 [facility] Glucose [Mass/Vol] 114 mg/dL High 74-106 [facility] Potassium [Moles/Vol] 3.5 mmol/L 3.5-5.1 [facility] Protein [Mass/Vol] 7.2 g/dL 6.4-8.2 [facility] Sodium [Moles/Vol] 142 mmol/L 136-145 [facility] Triglyceride [Mass/Vol] 121 mg/dL <=150 [facility] TSH Qn 1.346 m[IU]/L 0.358-3.740 [facility] Urea nitrogen [Mass/Vol] 27.0 mg/dL High 7.0-18.0 [facility] Urea nitrogen/Creatinine [Mass ratio] 30.0 mg/mg [facility] Laboratory - Hematology and Cell countson 08-12-2024 Immature granulocytes/100 WBC (Bld) 0.3 % 0.0-0.5 [facility] Leukocytes [#/volume] correc loan for nucleated erythrocytes in Blood by Automated counon 08-12-2024 WBC corrected for nucl RBC Auto (Bld) [#/Vol] Leukocytes [#/volume] corrected for nucleated erythrocytes in Blood by Automated coun 4.0-11.0 [facility] Lymphocytes Auto (Bld) [#/Vo l]on 08-12-2024 Lymphocytes (Bld) [#/Vol] Lymphocytes [#/volume] in Blood by Automated count 1.2-3.8 [facility] Lymphocytes/100 WBC Auto (Bl d)on 08-12-2024 Lymphocytes/100 WBC (Bld) Lymphocytes/100 leukocytes in Blood by Automated count 20.5-60.0 [facility] MCH Auto (RBC) [Entitic mass ]on 08-12-2024 MCH (RBC) [Entitic mass] MCH [Entitic mass] by Automated count 26.7-34.0 [facility] MCHC Auto (RBC) [Mass/Vol]on 08-12-2024 MCHC (RBC) [Mass/Vol] MCHC [Mass/volume] by Automated count 29.9-35.2 [facility] MCV Auto (RBC) [Entitic vol] on 08-12-2024 MCV (RBC) [Entitic vol] MCV [Entitic vol ume] by Automated count 81.0-99.0 [facility] Monocytes Auto (Bld) [#/Vol] on 08-12-2024 Monocytes (Bld) [#/Vol] Automated blood monocyte count 0.3-0.8 [facility] Monocytes/100 WBC Auto (Bld) on 08-12-2024 Monocytes/100 WBC (Bld) Automated monocyte % 1. 7-12.0 [facility] Neutrophils Auto (Bld) [#/Vo l]on 08-12-2024 Neutrophils (Bld) [#/Vol] Neutrophils [#/volume] in Blood by Automated count 1.4-6.5 [facility] Neutrophils/100 WBC Auto (Bl d)on 08-12-2024 Neutrophils/100 WBC (Bld) Automated neutrophil % 43.0-75.0 [facility] No Panel Informationon 08-12 Eosinophils # (Auto) 0.4 10 3/uL 0.0-0.7 [facility] Immature Granulocyte # (Auto) 0.02 10 3/uL 0.00-0.03 [facility] Platelet mean volume Auto (B ld) [Entitic vol]on 08-12-2024 Platelet mean volume (Bld) [Entitic vol] Platelet mean volume [Entitic volume] in Blood by Automated count 9.5-13.5 [facility] Platelets Auto (Bld) [#/Vol] on 08-12-2024 Platelets (Bld) [#/Vol] Platelets [#/vol ume] in Blood by Automated count 150-450 [facility] RBC Auto (Bld) [#/Vol]on RBC (Bld) [#/Vol] Erythrocytes [#/volume] in Blood by Automated count 4.20-5.40 [facility] Serum or plasma albumin/glob ulin mass ratioon 08-12-2024 Albumin/Globulin [Mass ratio] Serum or plasma albumin/globulin mass ratio [facility] Serum or plasma anion gap de terminationon 08-12-2024 Anion gap [Moles/Vol] Serum or plasma an ion gap determination [facility] Serum or plasma total choles terol/high density lipoprotein (HDL) cholesterol mass brando 08-12-2024 Cholesterol.total/Milly sterol in HDL [Mass ratio] Serum or plasma total cholesterol/high density lipoprotein (HDL) cholesterol mass rat [facility] Comment on above: 3.3 - 4.4 LOW RISK4. 4 - 7.1 AVERAGE RISK7.1 - 11.0 MODERATE RISK>11.0 HIGH RISK COVID Cepheidon 05-15-2024 SARS-CoV-2 (COVID-19) RNA THUY+probe Ql (Unsp spec) [facility] an d Antimicrobial susceptibilityon 05-15-2024 SARS-CoV-2 (COVID-19) RNA THUY+probe Ql (Unsp spec) Negative [facility] No Panel Informationon 05-15 POC Influenza A (PCR) Negative [facility] POC Influenza B (PCR) Negative [facility] Laboratory - Chemistry and C hemistry - challengeon 02-26-2024 Bilirubin.direct [Mass/Vol] 0.2 mg/dL 0.0-0.2 [facility] No Panel Informationon 02-25 Miscellaneous Test COMMENT . [facility] Comment on above: Test Ordered: [id number] Sedimentation Rate-WestergrenSedimentation Rate-Westergren 17 mm/hr CB Reference Range: 0-40Performed at: [place] - [facility] [address] [id number] Director: Natanael Banegas PhD, Phone: [phone] Basophils Auto (Bld) [#/Vol] on 12-31-2023 Basophils (Bld) [#/Vol] 0.0 10 3/uL 0.0-0.1 [facility] Basophils/100 WBC Auto (Bld) on 12-31-2023 Basophils/100 WBC (Bld) 0.5 % 0.2-2.0 [facility] Eosinophils/100 WBC Auto (Bl d)on 12-31-2023 Eosinophils/100 WBC (Bld) 4.9 % 0.9-7.0 [facility] Erythrocyte distribution wid th Auto (RBC) [Ratio]on 12-31-2023 Erythrocyte distribution width (RBC) [Ratio] 15.1 % High 11.0-15.0 [facility] Estimated glomerular filtrat ion rate (GFR) non- Americanon 12-31-2023 GFR/1.73 sq M.predicted among non-blacks MDRD (S/P/Bld) [Vol rate/Area] 55 mL/min/{1.73_m2} Low >=60 [facility] Globulin Calc (S) [Mass/Vol] on 12-31-2023 Globulin (S) [Mass/Vol] 3.2 g/dL [facility] Hematocrit Auto (Bld) [Volum e fraction]on 12-31-2023 Hematocrit (Bld) [Volume fraction] 35.0 % Low 36.0-48.0 [facility] Hemoglobin [Mass/volume] in Bloodon 12-31-2023 Hemoglobin (Bld) [Mass/Vol] 11.4 g/dL Low 12.0-16.0 [facility] Laboratory - Chemistry and C hemistry - challengeon 12-31-2023 Albumin [Mass/Vol] 3.3 g/dL Low 3.4-5.0 [facility] ALP [Catalytic activity/Vol] 93 U/L 46-116 [facility] ALT [Catalytic activity/Vol] 31 U/L 14-59 [facility] AST [Catalytic activity/Vol] 20 U/L 15-37 [facility] Bilirubin [Mass/Vol] 0.6 mg/dL 0.2-1.0 [facility] Bilirubin.direct [Mass/Vol] 0.1 mg/dL 0.0-0.2 [facility] Creatinine [Mass/Vol] 1.00 mg/dL 0.55-1.02 [facility] GFR/1.73 sq M.predicted MDRD (S/P/Bld) [Vol rate/Area] mL/min/{1.73_m2} >=60 [facility] Protein [Mass/Vol] 6.5 g/dL 6.4-8.2 [facility] Laboratory - Hematology and Cell countson 12-31-2023 ESR (Bld) [Velocity] 19 mm/h <=30 [facility] Immature granulocytes/100 WBC (Bld) 0.4 % 0.0-0.5 [facility] Leukocytes [#/volume] correc loan for nucleated erythrocytes in Blood by Automated counon 12-31-2023 WBC corrected for nucl RBC Auto (Bld) [#/Vol] 5.7 10 3/uL 4.0-11.0 [facility] Lymphocytes Auto (Bld) [#/Vo l]on 12-31-2023 Lymphocytes (Bld) [#/Vol] 1.4 10 3/uL 1.2-3.8 [facility] Lymphocytes/100 WBC Auto (Bl d)on 12-31-2023 Lymphocytes/100 WBC (Bld) 24.7 % 20.5-60.0 [facility] MCH Auto (RBC) [Entitic mass ]on 12-31-2023 MCH (RBC) [Entitic mass] 29.2 pg 26.7-34.0 [facility] MCHC Auto (RBC) [Mass/Vol]on 12-31-2023 MCHC (RBC) [Mass/Vol] 32.6 g/dL 29.9-35.2 [facility] MCV Auto (RBC) [Entitic vol] on 12-31-2023 MCV (RBC) [Entitic vol] 89.5 fL 81.0-99.0 [facility] Monocytes Auto (Bld) [#/Vol] on 12-31-2023 Monocytes (Bld) [#/Vol] 0.6 10 3/uL 0.3-0.8 [facility] Monocytes/100 WBC Auto (Bld) on 12-31-2023 Monocytes/100 WBC (Bld) 10.4 % 1.7-12.0 [facility] Neutrophils Auto (Bld) [#/Vo l]on 12-31-2023 Neutrophils (Bld) [#/Vol] 3.4 10 3/uL 1.4-6.5 [facility] Neutrophils/100 WBC Auto (Bl d)on 12-31-2023 Neutrophils/100 WBC (Bld) 59.1 % 43.0-75.0 [facility] No Panel Informationon 12-30 Eosinophils # (Auto) 0.3 10 3/uL 0.0-0.7 [facility] Immature Granulocyte # (Auto) 0.02 10 3/uL 0.00-0.03 [facility] Platelet mean volume Auto (B ld) [Entitic vol]on 12-31-2023 Platelet mean volume (Bld) [Entitic vol] 11.7 fL 9.5-13.5 [facility] Platelets Auto (Bld) [#/Vol] on 12-31-2023 Platelets (Bld) [#/Vol] 228 10 3/uL 150-450 [facility] RBC Auto (Bld) [#/Vol]on RBC (Bld) [#/Vol] 3.91 10 6/uL Low 4.20-5.40 [facility] Serum or plasma albumin/glob ulin mass ratioon 12-31-2023 Albumin/Globulin [Mass ratio] 1.0 {ratio} [facility] Basophils Auto (Bld) [#/Vol] on 12-03-2023 Basophils (Bld) [#/Vol] 0.0 10 3/uL 0.0-0.1 [facility] Basophils/100 WBC Auto (Bld) on 12-03-2023 Basophils/100 WBC (Bld) 0.4 % 0.2-2.0 [facility] Eosinophils/100 WBC Auto (Bl d)on 12-03-2023 Eosinophils/100 WBC (Bld) 3.2 % 0.9-7.0 [facility] Erythrocyte distribution wid th Auto (RBC) [Ratio]on 12-03-2023 Erythrocyte distribution width (RBC) [Ratio] 14.5 % 11.0-15.0 [facility] Estimated glomerular filtrat ion rate (GFR) non- Americanon 12-03-2023 GFR/1.73 sq M.predicted among non-blacks MDRD (S/P/Bld) [Vol rate/Area] 59 mL/min/{1.73_m2} Low >=60 [facility] Globulin Calc (S) [Mass/Vol] on 12-03-2023 Globulin (S) [Mass/Vol] 3.6 g/dL [facility] Hematocrit Auto (Bld) [Volum e fraction]on 12-03-2023 Hematocrit (Bld) [Volume fraction] 37.9 % 36.0-48.0 [facility] Hemoglobin [Mass/volume] in Bloodon 12-03-2023 Hemoglobin (Bld) [Mass/Vol] 12.3 g/dL 12.0-16.0 [facility] Laboratory - Chemistry and C hemistry - challengeon 12-03-2023 Albumin [Mass/Vol] 3.4 g/dL 3.4-5.0 [facility] ALP [Catalytic activity/Vol] 95 U/L 46-116 [facility] ALT [Catalytic activity/Vol] 27 U/L 14-59 [facility] AST [Catalytic activity/Vol] 23 U/L 15-37 [facility] Bilirubin [Mass/Vol] 0.5 mg/dL 0.2-1.0 [facility] Bilirubin.direct [Mass/Vol] 0.1 mg/dL 0.0-0.2 [facility] Creatinine [Mass/Vol] 0.94 mg/dL 0.55-1.02 [facility] GFR/1.73 sq M.predicted MDRD (S/P/Bld) [Vol rate/Area] mL/min/{1.73_m2} >=60 [facility] Protein [Mass/Vol] 7.0 g/dL 6.4-8.2 [facility] Laboratory - Hematology and Cell countson 12-03-2023 ESR (Bld) [Velocity] 22 mm/h <=30 [facility] Immature granulocytes/100 WBC (Bld) 0.1 % 0.0-0.5 [facility] Leukocytes [#/volume] correc loan for nucleated erythrocytes in Blood by Automated counon 12-03-2023 WBC corrected for nucl RBC Auto (Bld) [#/Vol] 7.5 10 3/uL 4.0-11.0 [facility] Lymphocytes Auto (Bld) [#/Vo l]on 12-03-2023 Lymphocytes (Bld) [#/Vol] 1.6 10 3/uL 1.2-3.8 [facility] Lymphocytes/100 WBC Auto (Bl d)on 12-03-2023 Lymphocytes/100 WBC (Bld) 21.7 % 20.5-60.0 [facility] MCH Auto (RBC) [Entitic mass ]on 12-03-2023 MCH (RBC) [Entitic mass] 28.9 pg 26.7-34.0 [facility] MCHC Auto (RBC) [Mass/Vol]on 12-03-2023 MCHC (RBC) [Mass/Vol] 32.5 g/dL 29.9-35.2 [facility] MCV Auto (RBC) [Entitic vol] on 12-03-2023 MCV (RBC) [Entitic vol] 89.0 fL 81.0-99.0 [facility] Monocytes Auto (Bld) [#/Vol] on 12-03-2023 Monocytes (Bld) [#/Vol] 0.7 10 3/uL 0.3-0.8 [facility] Monocytes/100 WBC Auto (Bld) on 12-03-2023 Monocytes/100 WBC (Bld) 9.1 % 1.7-12.0 [facility] Neutrophils Auto (Bld) [#/Vo l]on 12-03-2023 Neutrophils (Bld) [#/Vol] 4.9 10 3/uL 1.4-6.5 [facility] Neutrophils/100 WBC Auto (Bl d)on 12-03-2023 Neutrophils/100 WBC (Bld) 65.5 % 43.0-75.0 [facility] No Panel Informationon 12-02 Eosinophils # (Auto) 0.2 10 3/uL 0.0-0.7 [facility] Immature Granulocyte # (Auto) 0.01 10 3/uL 0.00-0.03 [facility] Platelet mean volume Auto (B ld) [Entitic vol]on 12-03-2023 Platelet mean volume (Bld) [Entitic vol] 11.6 fL 9.5-13.5 [facility] Platelets Auto (Bld) [#/Vol] on 12-03-2023 Platelets (Bld) [#/Vol] 250 10 3/uL 150-450 [facility] RBC Auto (Bld) [#/Vol]on RBC (Bld) [#/Vol] 4.26 10 6/uL 4.20-5.40 [facility] Serum or plasma albumin/glob ulin mass ratioon 12-03-2023 Albumin/Globulin [Mass ratio] 0.9 {ratio} [facility] Basophils Auto (Bld) [#/Vol] on 11-19-2023 Basophils (Bld) [#/Vol] 0.0 10 3/uL 0.0-0.1 [facility] Basophils/100 WBC Auto (Bld) on 11-19-2023 Basophils/100 WBC (Bld) 0.3 % 0.2-2.0 [facility] Eosinophils/100 WBC Auto (Bl d)on 11-19-2023 Eosinophils/100 WBC (Bld) 1.7 % 0.9-7.0 [facility] Erythrocyte distribution wid th Auto (RBC) [Ratio]on 11-19-2023 Erythrocyte distribution width (RBC) [Ratio] 14.0 % 11.0-15.0 [facility] Estimated glomerular filtrat ion rate (GFR) non- Americanon 11-19-2023 GFR/1.73 sq M.predicted among non-blacks MDRD (S/P/Bld) [Vol rate/Area] 59 mL/min/{1.73_m2} Low >=60 [facility] Globulin Calc (S) [Mass/Vol] on 11-19-2023 Globulin (S) [Mass/Vol] 3.8 g/dL [facility] Hematocrit Auto (Bld) [Volum e fraction]on 11-19-2023 Hematocrit (Bld) [Volume fraction] 38.3 % 36.0-48.0 [facility] Hemoglobin [Mass/volume] in Bloodon 11-19-2023 Hemoglobin (Bld) [Mass/Vol] 12.2 g/dL 12.0-16.0 [facility] Laboratory - Chemistry and C hemistry - challengeon 11-19-2023 Albumin [Mass/Vol] 3.7 g/dL 3.4-5.0 [facility] ALP [Catalytic activity/Vol] 104 U/L 46-116 [facility] ALT [Catalytic activity/Vol] 24 U/L 14-59 [facility] AST [Catalytic activity/Vol] 17 U/L 15-37 [facility] Bilirubin [Mass/Vol] 0.4 mg/dL 0.2-1.0 [facility] Bilirubin.direct [Mass/Vol] 0.1 mg/dL 0.0-0.2 [facility] Creatinine [Mass/Vol] 0.94 mg/dL 0.55-1.02 [facility] GFR/1.73 sq M.predicted MDRD (S/P/Bld) [Vol rate/Area] mL/min/{1.73_m2} >=60 [facility] Protein [Mass/Vol] 7.5 g/dL 6.4-8.2 [facility] Laboratory - Hematology and Cell countson 11-19-2023 ESR (Bld) [Velocity] 22 mm/h <=30 [facility] Immature granulocytes/100 WBC (Bld) 0.2 % 0.0-0.5 [facility] Leukocytes [#/volume] correc loan for nucleated erythrocytes in Blood by Automated counon 11-19-2023 WBC corrected for nucl RBC Auto (Bld) [#/Vol] 9.3 10 3/uL 4.0-11.0 [facility] Lymphocytes Auto (Bld) [#/Vo l]on 11-19-2023 Lymphocytes (Bld) [#/Vol] 1.4 10 3/uL 1.2-3.8 [facility] Lymphocytes/100 WBC Auto (Bl d)on 11-19-2023 Lymphocytes/100 WBC (Bld) 15.3 % Low 20.5-60.0 [facility] MCH Auto (RBC) [Entitic mass ]on 11-19-2023 MCH (RBC) [Entitic mass] 27.7 pg 26.7-34.0 [facility] MCHC Auto (RBC) [Mass/Vol]on 11-19-2023 MCHC (RBC) [Mass/Vol] 31.9 g/dL 29.9-35.2 [facility] MCV Auto (RBC) [Entitic vol] on 11-19-2023 MCV (RBC) [Entitic vol] 87.0 fL 81.0-99.0 [facility] Monocytes Auto (Bld) [#/Vol] on 11-19-2023 Monocytes (Bld) [#/Vol] 0.7 10 3/uL 0.3-0.8 [facility] Monocytes/100 WBC Auto (Bld) on 11-19-2023 Monocytes/100 WBC (Bld) 7.2 % 1.7-12.0 [facility] Neutrophils Auto (Bld) [#/Vo l]on 11-19-2023 Neutrophils (Bld) [#/Vol] 7.0 10 3/uL High 1.4-6.5 [facility] Neutrophils/100 WBC Auto (Bl d)on 11-19-2023 Neutrophils/100 WBC (Bld) 75.3 % High 43.0-75.0 [facility] No Panel Informationon 11-18 Eosinophils # (Auto) 0.2 10 3/uL 0.0-0.7 [facility] Immature Granulocyte # (Auto) 0.02 10 3/uL 0.00-0.03 [facility] Platelet mean volume Auto (B ld) [Entitic vol]on 11-19-2023 Platelet mean volume (Bld) [Entitic vol] 11.4 fL 9.5-13.5 [facility] Platelets Auto (Bld) [#/Vol] on 11-19-2023 Platelets (Bld) [#/Vol] 296 10 3/uL 150-450 [facility] RBC Auto (Bld) [#/Vol]on RBC (Bld) [#/Vol] 4.40 10 6/uL 4.20-5.40 [facility] Serum or plasma albumin/glob ulin mass ratioon 11-19-2023 Albumin/Globulin [Mass ratio] 1.0 {ratio} [facility] Alanine aminotransferase [En zymatic activity/volume] in Serum or PlasmaOrdered By: Tano Tsai on 09-12-2023 ALT [Catalytic activity/Vol] 18 U/L 7-52 [facility] Albumin [Mass/volume] in Ser um or Plasma by Bromocresol green (BCG) dye binding methoOrdered By: Tano Tsai on 09-12-2023 Albumin BCG dye [Mass/Vol] 4.2 g/dL 3.5-5.7 [facility] Alkaline phosphatase [Enzyma tic activity/volume] in Serum or PlasmaOrdered By: Tano Tsai on 09-12-2023 ALP [Catalytic activity/Vol] 82 U/L 34-104 [facility] Aspartate aminotransferase [ Enzymatic activity/volume] in Serum or PlasmaOrdered By: Tano Tsai on 09-12-2023 AST [Catalytic activity/Vol] 16 U/L 13-39 [facility] Basophils Auto (Bld) [#/Vol] Ordered By: Tano Tsai on 09-12-2023 Basophils (Bld) [#/Vol] 0.1 10*3/uL 0.0-0.2 [facility] Basophils/100 WBC Auto (Bld) Ordered By: Tano Tsai on 09-12-2023 Basophils/100 WBC (Bld) 0.7 % . [facility] Bilirubin.total [Mass/volume ] in Serum or PlasmaOrdered By: Tano Tsai on 09-12-2023 Bilirubin [Mass/Vol] 0.5 mg/dL 0.3-1.0 [facility] C reactive protein [Mass/vol ume] in Serum or PlasmaOrdered By: Tano Tsai on 09-12-2023 CRP [Mass/Vol] 2.1 mg/dL 0.0-0.5 [facility] Calcium [Mass/volume] in Ser um or PlasmaOrdered By: Tano Tsai on 09-12-2023 Calcium [Mass/Vol] 9.9 mg/dL 8.6-10.3 [facility] Carbon dioxide, total [Moles /volume] in Serum or PlasmaOrdered By: Tano Tsai on 09-12-2023 CO2 [Moles/Vol] 31.5 mmol/L 21.0-31.0 [facility] Chloride [Moles/volume] in S concha or PlasmaOrdered By: Tano Tsai on 09-12-2023 Chloride [Moles/Vol] 105 mmol/L 98-107 [facility] Creatinine [Mass/volume] in Serum or PlasmaOrdered By: Tano Tsai on 09-12-2023 Creatinine [Mass/Vol] 0.74 mg/dL 0.60-1.20 [facility] Eosinophils Auto (Bld) [#/Vo l]Ordered By: Tano Tsai on 09-12-2023 Eosinophils (Bld) [#/Vol] 0.3 10*3/uL 0.0-0.45 [facility] Eosinophils/100 WBC Auto (Bl d)Ordered By: Tano Tsai on 09-12-2023 Eosinophils/100 WBC (Bld) 3.3 % . [facility] Erythrocyte distribution wid th Auto (RBC) [Ratio]Ordered By: Tano Tsai on 09-12-2023 Erythrocyte distribution width (RBC) [Ratio] 14.8 % 11.9-15.3 [facility] Erythrocyte sedimentation ra te by Photometric methodOrdered By: Tano Tsai on 09-12-2023 ESR Photometric method (Bld) [Velocity] 26 mm/hr 0-29 [facility] Globulin Calc (S) [Mass/Vol] Ordered By: Tano Tsai on 09-12-2023 Globulin (S) [Mass/Vol] 2.9 g/dL [facility] Glucose [Mass/volume] in Ser um or PlasmaOrdered By: Tano Tsai on 09-12-2023 Glucose [Mass/Vol] 99 mg/dL 70-100 [facility] Comment on above: ADA recommended refe rence rangeRandom Glucose Reference Range is dependent on time and content of last meal. Glucose of more than 200 mg/dL in a nonstressed, ambulatory subject supports the diagnosis of Diabetes Mellitus. Hematocrit Auto (Bld) [Volum e fraction]Ordered By: Tano Tsai on 09-12-2023 Hematocrit (Bld) [Volume fraction] 40.9 % 34.0-46.4 [facility] Hemoglobin [Mass/volume] in BloodOrdered By: Tano Tsai on 09-12-2023 Hemoglobin (Bld) [Mass/Vol] 13.2 g/dL 11.8-15.4 [facility] Hepatitis B virus surface Ab [Presence] in SerumOrdered By: Tano Tsai on 09-12-2023 HBV surface Ab Ql (S) Non-Reactive . [facility] Comment on above: Non Reactive: Incons istent with immunity, less than 10 mIU/mL Reactive: Consistent with immunity, greater than 9.9 mIU/mL Hepatitis B virus surface Ag [Presence] in Serum or Plasma by ImmunoassayOrdered By: Tano Tsai on 09-12-2023 HBV surface Ag IA Ql Negative Negative [facility] Hepatitis C virus IgG Ab [Pr esence] in Serum or Plasma by ImmunoassayOrdered By: Tano Tsai on 09-12-2023 HCV IgG IA Ql Non-Reactive Non Reactive [facility] Leukocytes [#/volume] correc loan for nucleated erythrocytes in Blood by Automated counOrdered By: Tano Tsai on 09-12-2023 WBC corrected for nucl RBC Auto (Bld) [#/Vol] 9.2 10*3/uL 3.8-11.6 [facility] Lymphocytes Auto (Bld) [#/Vo l]Ordered By: Tano Tsai on 09-12-2023 Lymphocytes (Bld) [#/Vol] 1.9 10*3/uL 1.00-4.8 [facility] Lymphocytes/100 WBC Auto (Bl d)Ordered By: Tano Tsai on 09-12-2023 Lymphocytes/100 WBC (Bld) 21.1 % . [facility] MCH Auto (RBC) [Entitic mass ]Ordered By: Tano Tsai on 09-12-2023 MCH (RBC) [Entitic mass] 27.6 pg 24.7-34.3 [facility] MCHC Auto (RBC) [Mass/Vol]Or dered By: Tano Tsai on 09-12-2023 MCHC (RBC) [Mass/Vol] 32.4 g/dL 32.0-35.0 [facility] MCV Auto (RBC) [Entitic vol] Ordered By: Tano Tsai on 09-12-2023 MCV (RBC) [Entitic vol] 85.2 fL 80-100 [facility] Monocytes Auto (Bld) [#/Vol] Ordered By: Tano Tsai on 09-12-2023 Monocytes (Bld) [#/Vol] 1.0 10*3/uL 0.0-0.8 [facility] Monocytes/100 WBC Auto (Bld) Ordered By: Tano Tsai on 09-12-2023 Monocytes/100 WBC (Bld) 10.5 % . [facility] Neutrophils Auto (Bld) [#/Vo l]Ordered By: Tano Tsai on 09-12-2023 Neutrophils (Bld) [#/Vol] 5.9 10*3/uL 1.8-7.7 [facility] Neutrophils/100 WBC Auto (Bl d)Ordered By: Tano Tsai on 09-12-2023 Neutrophils/100 WBC (Bld) 64.4 % . [facility] No Panel InformationOrdered By: Tano Tsai on 09-12-2023 Estimated GFR (CKD-EPI) > 60.0 mL/Min [facility] Hepatitis B Core Total Antibody Negative Negative [facility] Comment on above: Performed at: [facility] [address] [id number] Director: Natanael Banegas PhD, Phone: [phone] Hepatitis C Interpretation See comment . [facility] Comment on above: Not infected with HC V unless early or acute infection issuspected (which may be delayed in an immunocompromisedindividual), or other evidence exists to indicate HCVinfection. Pharmacy Creatinine Clearance (Chem N/A [facility] Nucleated erythrocytes [Pres ence] in Blood by Automated countOrdered By: Tano Tsai on 09-12-2023 Nucleated RBC Auto Ql (Bld) 0.2 /100{WBC} 0-0.5 [facility] Parathyrin.intact [Mass/volu me] in Serum or PlasmaOrdered By: Tano Tsai on 09-12-2023 Parathyrin.intact [Mass/Vol] 34.2 pg/mL 12 [facility] Platelet mean volume Auto (B ld) [Entitic vol]Ordered By: Tano Tsai on 09-12-2023 Platelet mean volume (Bld) [Entitic vol] 10.3 fL 6.3-10.7 [facility] Platelets Auto (Bld) [#/Vol] Ordered By: Tano Tsai on 09-12-2023 Platelets (Bld) [#/Vol] 253 10*3/uL 150-450 [facility] Potassium [Moles/volume] in Serum or PlasmaOrdered By: Tano Tsai on 09-12-2023 Potassium [Moles/Vol] 4.2 mmol/L 3.5-5.1 [facility] Protein [Mass/volume] in Ser um or PlasmaOrdered By: Tano Tsai on 09-12-2023 Protein [Mass/Vol] 7.1 g/dL 6.4-8.9 [facility] RBC Auto (Bld) [#/Vol]Ordere d By: Tano Tsai on 09-12-2023 RBC (Bld) [#/Vol] 4.80 10*6/uL 3.60-5.00 [facility] Serum or plasma albumin/glob ulin mass ratioOrdered By: Tano Tsai on 09-12-2023 Albumin/Globulin [Mass ratio] 1.4 {ratio} [facility] Serum or plasma anion gap de terminationOrdered By: Tano Tsai on 09-12-2023 Anion gap [Moles/Vol] 9.7 mmol/L 6.0-15.0 [facility] Sodium [Moles/volume] in Ser um or PlasmaOrdered By: Tano Tsai on 09-12-2023 Sodium [Moles/Vol] 142 mmol/L 136-145 [facility] Urea nitrogen [Mass/volume] in Serum or PlasmaOrdered By: Tano Tsai on 09-12-2023 Urea nitrogen [Mass/Vol] 28 mg/dL 7-25 [facility] WBC Auto (Bld) [#/Vol]Ordere d By: Tano Tsai on 09-12-2023 WBC (Bld) [#/Vol] 9.2 10*3/uL 3.8-11.6 [facility] Basophils Auto (Bld) [#/Vol] on 08-03-2023 Basophils (Bld) [#/Vol] 0.1 10 3/uL 0.0-0.1 [facility] Basophils/100 WBC Auto (Bld) on 08-03-2023 Basophils/100 WBC (Bld) 0.6 % 0.2-2.0 [facility] Eosinophils/100 WBC Auto (Bl d)on 08-03-2023 Eosinophils/100 WBC (Bld) 3.2 % 0.9-7.0 [facility] Erythrocyte distribution wid th Auto (RBC) [Ratio]on 08-03-2023 Erythrocyte distribution width (RBC) [Ratio] 13.7 % 11.0-15.0 [facility] Estimated glomerular filtrat ion rate (GFR) non- Americanon 08-03-2023 GFR/1.73 sq M.predicted among non-blacks MDRD (S/P/Bld) [Vol rate/Area] mL/min/{1.73_m2} >=60 [facility] Globulin Calc (S) [Mass/Vol] on 08-03-2023 Globulin (S) [Mass/Vol] 3.8 g/dL [facility] Hematocrit Auto (Bld) [Volum e fraction]on 08-03-2023 Hematocrit (Bld) [Volume fraction] 38.0 % 36.0-48.0 [facility] Hemoglobin [Mass/volume] in Bloodon 08-03-2023 Hemoglobin (Bld) [Mass/Vol] 11.9 g/dL 12.0-16.0 [facility] Laboratory - Chemistry and C hemistry - challengeon 08-03-2023 Albumin [Mass/Vol] 3.4 g/dL 3.4-5.0 [facility] ALP [Catalytic activity/Vol] 110 U/L 46-116 [facility] ALT [Catalytic activity/Vol] 21 U/L 14-59 [facility] AST [Catalytic activity/Vol] 18 U/L 15-37 [facility] Bilirubin [Mass/Vol] 0.3 mg/dL 0.2-1.0 [facility] Calcium [Mass/Vol] 8.8 mg/dL 8.5-10.1 [facility] Chloride [Moles/Vol] 103 mmol/L 98-107 [facility] CO2 [Moles/Vol] 32.4 mmol/L 21.0-32.0 [facility] Cobalamin (Vitamin B12) [Mass/Vol] 803.0 pg/mL 193.0-986.0 [facility] Creatinine [Mass/Vol] 0.88 mg/dL 0.55-1.02 [facility] GFR/1.73 sq M.predicted MDRD (S/P/Bld) [Vol rate/Area] mL/min/{1.73_m2} >=60 [facility] Glucose [Mass/Vol] 150 mg/dL 74-106 [facility] Potassium [Moles/Vol] 3.6 mmol/L 3.5-5.1 [facility] Protein [Mass/Vol] 7.2 g/dL 6.4-8.2 [facility] Sodium [Moles/Vol] 143 mmol/L 136-145 [facility] TSH Qn 1.282 m[IU]/L 0.358-3.740 [facility] Urea nitrogen [Mass/Vol] 26.0 mg/dL 7.0-18.0 [facility] Urea nitrogen/Creatinine [Mass ratio] 29.5 mg/mg [facility] Laboratory - Hematology and Cell countson 08-03-2023 Immature granulocytes/100 WBC (Bld) 0.3 % 0.0-0.5 [facility] Leukocytes [#/volume] correc loan for nucleated erythrocytes in Blood by Automated counon 08-03-2023 WBC corrected for nucl RBC Auto (Bld) [#/Vol] 8.8 10 3/uL 4.0-11.0 [facility] Lymphocytes Auto (Bld) [#/Vo l]on 08-03-2023 Lymphocytes (Bld) [#/Vol] 2.0 10 3/uL 1.2-3.8 [facility] Lymphocytes/100 WBC Auto (Bl d)on 08-03-2023 Lymphocytes/100 WBC (Bld) 22.7 % 20.5-60.0 [facility] MCH Auto (RBC) [Entitic mass ]on 08-03-2023 MCH (RBC) [Entitic mass] 27.5 pg 26.7-34.0 [facility] MCHC Auto (RBC) [Mass/Vol]on 08-03-2023 MCHC (RBC) [Mass/Vol] 31.3 g/dL 29.9-35.2 [facility] MCV Auto (RBC) [Entitic vol] on 08-03-2023 MCV (RBC) [Entitic vol] 87.8 fL 81.0-99.0 [facility] Monocytes Auto (Bld) [#/Vol] on 08-03-2023 Monocytes (Bld) [#/Vol] 0.9 10 3/uL 0.3-0.8 [facility] Monocytes/100 WBC Auto (Bld) on 08-03-2023 Monocytes/100 WBC (Bld) 9.9 % 1.7-12.0 [facility] Neutrophils Auto (Bld) [#/Vo l]on 08-03-2023 Neutrophils (Bld) [#/Vol] 5.6 10 3/uL 1.4-6.5 [facility] Neutrophils/100 WBC Auto (Bl d)on 08-03-2023 Neutrophils/100 WBC (Bld) 63.3 % 43.0-75.0 [facility] No Panel Informationon 08-02 C-Reactive Protein, Quantitative 1.82 mg/dL <=0.50 [facility] Eosinophils # (Auto) 0.3 10 3/uL 0.0-0.7 [facility] Immature Granulocyte # (Auto) 0.03 10 3/uL 0.00-0.03 [facility] Platelet mean volume Auto (B ld) [Entitic vol]on 08-03-2023 Platelet mean volume (Bld) [Entitic vol] 11.6 fL 9.5-13.5 [facility] Platelets Auto (Bld) [#/Vol] on 08-03-2023 Platelets (Bld) [#/Vol] 279 10 3/uL 150-450 [facility] RBC Auto (Bld) [#/Vol]on RBC (Bld) [#/Vol] 4.33 10 6/uL 4.20-5.40 [facility] Serum nuclear antibody titer on 08-03-2023 Nuclear Ab (S) [Titer] Negative . [facility] Comment on above: Negative <1:80 Borde rline 1:80 Positive >1:80ICAP nomenclature: AC-0For more information about Hep-2 cell patterns useANApatterns.org, the official website for theInternational Consensus on Antinuclear Antibody (ALFONZO)Patterns (ICAP).Performed at: - [facility] [id number] Director: Natanael Banegas PhD, Phone: [phone] Serum or plasma albumin/glob ulin mass ratioon 08-03-2023 Albumin/Globulin [Mass ratio] 0.9 {ratio} [facility] Serum or plasma anion gap de terminationon 08-03-2023 Anion gap [Moles/Vol] 11.2 mmol/L [facility] Serum or plasma cyclic adeno sine monophosphate measurement (moles/volume)on 08-03-2023 Adenosine monophosphate.cyclic [Moles/Vol] 3 units 0-19 [facility] Comment on above: Negative <20 Weak po sitive 20 - 39 Moderate positive 40 - 59 Strong positive >59Performed at: CB - [facility] [id number] [place], [place] [id number] Director: Natanael Banegas PhD, Phone: [phone] MR LUMBAR SPINE W AND WO CON [...] Electronically Signed Out By ANNY CHU MD/[facility] By the signature on this report, the individual or group listed as making the Final Interpretation/Diagnos is certifies that they have reviewed this case. Diagnostic interpretation performed at [place] [address] Clinical History: Physician Contact Number: [phone] Ischemic Time (A): 09:35 Fixative (A): Formalin [...] submitted in toto in one cassette. 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 Refer to note in patient chart for documentation of history and physical. Providers: Gustavo Li MD (Doctor), Sara Castillo RN (Nurse), Maciel Ferrer, Labor Mediator Referring: Gustavo Li MD Medicines: See the [...] biopsy result. 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 All rights reserved. The codes documented in this report are preliminary and upon hospital nurse review may be revised to meet current compliance requirements. Attending Participation: I personally performed the entire procedure. MD Gustavo Enamorado MD 12/12/2022 9:49:01 AM This report has been signed electronically. Number of Addenda: 0 Note Initiated On: 12/12/2022 9:15 AM Total Procedure Duration Time 0 hours 21 minutes 39 seconds [facility] Work Phone: Radiology Study observation (narrative) [facility] Work Phone: Endoscopic Ultrasound (Upper )Ordered By: Gustavo Li on 12-12-2022 [facility] Work Phone: No Panel Informationon 12-12 [employer] Ki[employer] DO Work Phone: [email or web address]} [employer] Ki[employer] DO Work Phone: [employer] Ki[employer] DO Work Phone: Order Reconciliationon 12-12 Order [...] Metamucil [facility] orally once a day [facility] 12-Dec-2022 07:55 Metamucil [facility] orally once a day [facility] 12-Dec-2022 07:55 Metamucil [facility] [...] day gummy Tums 750 mg daily Normal [facility] Surgical Pathology Depar tmenton 12-12-2022 [facility] Surgical Pathology Department Name LIZZY WELSH Pathologist: ANNY CHU MD Date of Procedure: 12/12/2022 Date Received: 12/12/2022 Date Reported 12/20/2022 Submitting Physician: GUSTAVO LI MD Location: [facility] Other External # FINAL DIAGNOSIS A. DUODENAL POLYP, BIOPSY: -- SMALL INTESTINAL MUCOSA DEMONSTRATING DILATED LYMPHATIC VESSELS, NO DYSPLASIA IDENTIFIED. Note: Multiple deeper levels were examined. Electronically Signed Out By ANNY CHU MD/[facility] By the signature on this report, the individual or group listed as making the Final Interpretation/Diagnos is certifies that they have reviewed this case. Diagnostic interpretation performed at [place] [address] Clinical History: Physician Contact Number: [phone] Ischemic Time (A): 09:35 Fixative (A): Formalin [...] submitted in toto in one cassette. mrs/12/13/2022 [facility] Department of Pathology [address] [place] [address] Normal [facility] Comment on above: Performed By: #### U [facility] #### [facility] Surgical Pathology Department [address] [place] [address] Upper EUSon 12-12-2022 Upper EUS PATIENTNAME Patient Name: Lizzy Welsh EXAMDATE Procedure Date: 12/12/2022 9:15 AM PATIENTID PATIENTACCOUNTNUM PATIENTDOB Date of : 1950 ADMITTYPE Admit Type: Outpatient PATIENTROOM Site: [facility] 1 ETHNICITY Ethnicity: Not or RACE Race: White PROVDR Attending MD: Gustavo Li MD, [id number] ENDOPROCEDURENAME Procedure: Upper EUS INDICATION Indications: Duodenal mucosal mass/polyp found on endoscopy, 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 Refer to note in patient chart for documentation of history and physical. PRIMARYPROVIDER Providers: Gustavo Li MD (Doctor), Sara Castillo RN (Nurse), Maciel Ferrer, Labor Mediator EDREFPROVIDER Referring: Gustavo Li MD CURRENT_MEDS Medicines: [...] result. 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 All rights reserved. The codes documented in this report are preliminary and upon hospital nurse review may be revised to meet current compliance requirements. ATTDRPART Attending Participation: I personally performed the entire procedure. SIGNATURENAME MD Gustavo Enamorado MD SIGNATUREDATE 12/12/2022 9:49:01 AM SIGNATUREONFILEIND This report has been signed electronically. NUMADDENDA Number of Addenda: 0 INITIATEDON Note Initiated On: 12/12/2022 9:15 AM TOTPROCTIME Total Procedure Duration Time 0 hours 21 minutes 39 seconds Normal [facility] ZAK - TSHon 07-19-2022 TSH 1.271 uIU/mL Normal 0.358-3.740 [facility] Comment on above: Performed By: #### D ATTSH #### [facility] [address] [place] [address] Dr. Gertrudis Peres TSH RANGE SEE BELOW Normal [facility] Comment on above: Result Comment: <0.3 4 UIU/ml HYPERTHYROID 0.34-5.60 UIU/ml EUTHYROID >5.60 UIU/ml HYPOTHYROID Performed By: #### D ATTSH #### [facility] [address] [place] [address] [address] Gertrudis Peres ZAK - VITAMIN Don 07-19-2022 VIT D 25-OH 26.5 ng/mL Normal [facility] Comment on above: Performed By: #### D ATVITD #### [facility] [address] [place] [address] [address] Gertrudis Peres VIT D RANGES SEE BELOW Normal [facility] Comment on above: Result Comment: <20 ng/mL Vit D deficient 20 - <30 ng/mL Vit D insufficient 30 - 100 ng/mL Vit D sufficient >100 ng/mL Potential Toxicity Performed By: #### D ATVITD #### [facility] [address] [place] [address] [address] Gertrudis Peres MG MAMM SCREEN 3D MANDY CADon 06-13-2022 MG MAMM SCREEN 3D MANDY CAD Patient: LIZZY WELSH Exam Date: 06/13/2022 : 1950 Gender:F Ordering : DR MCKINLEY ALFARO D.O. Admission #: [id number] Family : Order #: [id number] CLICK HERE TO VIEW EXAM RADIOLOGY REPORT [...] Treatments None Family Cancers None LOCATION: [facility] BREAST COMPOSITION: Scattered areas fibroglandular density. [...] Rose M.D. on 06/14/2022 at 11:22 Normal [facility] XR DEXA BONE DENSITYon 06-13 XR [...] by: TIFFANY ROSE Date: 2022-06-13 14:55 Normal [facility] PAP ACOG PANEL 2: 30 to 65on 06-10-2022 . . Normal [facility] Comment on above: Performed By: #### [id number] #### [facility] [address] [place] [address] Dr. Gertrudis Peres Age Gdln ACOG Testing Comment [facility] Comment on above: Result Comment: <21 or >65 or no age provided Performed By: #### 4 [id number] #### [facility] [address] [place] [address] [address] Gertrudis Peres DIAGNOSIS: Comment [facility] Comment on above: Result Comment: NEGA TIVE FOR INTRAEPITHELIAL LESION OR MALIGNANCY. Performed By: #### 4 [id number] #### [facility] [address] [place] [address] Dr. Gertrudis Peres Methodology: Comment [facility] Comment on above: Result Comment: This liquid based ThinPrep(R) pap test was screened with the use of an image guided system. Performed By: #### 4 [id number] #### [facility] [address] [place] [address] [address] Gertrudis Peres Note: Comment Normal [facility] Comment on above: Result Comment: The Pap smear is a screening test designed to aid in the detection of premalignant and malignant conditions of the uterine cervix. It is not a diagnostic procedure and should not be used as the sole means of detecting cervical cancer. Both false-positive and false-negative reports do occur. . Performed By: #### [id number] #### [facility] [address] [place] [address] [address] Gertrudis Peres Performed by: Comment Normal [facility] Comment on above: Result Comment: [employer] Lay Out Planner (ASCP) Performed By: #### 4 [id number] #### [facility] [address] [place] [address] Dr. Gertrudis Peres Specimen adequacy: Comment Normal [facility] Comment on above: Result Comment: Sati sfactory for evaluation. Endocervical and/or squamous metaplastic cells (endocervical component) are present. Performed By: #### 4 [id number] #### [facility] [address] [place] [address] [address] Gertrudis Peres XR HIPS MANDY 5V [...] fracture or subluxation. Electronically authenticated by: NICANOR LOWERYWAL Date: 2022-05-03 16:34 Normal [facility] CBC AUTO DIFFon 03-31-2022 BASO # 0.0 103/ul Normal 0.0-0.1 [facility] Comment on above: Performed By: #### C BC #### [facility] [address] [place] [address] Dr. Gertrudis Peres Basophils/100 WBC (Bld) 0.5 % Normal 0.2-2.0 [facility] Comment on above: Performed By: #### C BC #### [facility] [address] [place] [address] Dr. Gertrudis Peres EO # 0.3 103/ul Normal 0.0-0.7 [facility] Comment on above: Performed By: #### C BC #### [facility] [address] [place] [address] Dr. Gertrudis Peres Eosinophils/100 WBC (Bld) 4.3 % Normal 0.9-7.0 [facility] Comment on above: Performed By: #### C BC #### [facility] [address] [place] [address] Dr. Gertrudis Peres Erythrocyte distribution width (RBC) [Ratio] 13.2 % Normal 11.0-15.0 [facility] Comment on above: Performed By: #### C BC #### [facility] [address] [place] [address] Dr. Gertrudis Peres Hematocrit (Bld) [Volume fraction] 37.9 % Normal 36.0-48.0 [facility] Comment on above: Performed By: #### C BC #### [facility] [address] [place] [address] Dr. Gertrudis Peres Hemoglobin (Bld) [Mass/Vol] 12.7 g/dL Normal 12.0-16.0 [facility] Comment on above: Performed By: #### C BC #### [facility] [address] [place] [address] Dr. Gertrudis Peres IG # 0.02 10e3/ul Normal 0.00-0.03 [facility] Comment on above: Performed By: #### C BC #### [facility] [address] [place] [address] Dr. Gertrudis Peres IG % 0.3 % Normal 0.0-0.5 [facility] Comment on above: Performed By: #### C BC #### [facility] [address] [place] [address] Dr. Gertrudis Peres LYMPH # 1.7 103/ul Normal 1.2-3.8 [facility] Comment on above: Performed By: #### C BC #### [facility] [address] [place] [address] Dr. Gertrudis Peres Lymphocytes/100 WBC (Bld) 26.4 % Normal 20.5-60.0 [facility] Comment on above: Performed By: #### C BC #### [facility] [address] [place] [address] Dr. Gertrudis Peres MANUAL DIFF REQ NO Normal [facility] Comment on above: Performed By: #### C BC #### [facility] [address] [place] [address] Dr. Gertrudis Peres MCH (RBC) [Entitic mass] 28.6 pg Normal 26.7-34.0 [facility] Comment on above: Performed By: #### C BC #### [facility] [address] [place] [address] Dr. Gertrudis Peres MCHC (RBC) [Mass/Vol] 33.5 g/dL Normal 29.9-35.2 [facility] Comment on above: Performed By: #### C BC #### [facility] [address] [place] [address] Dr. Gertrudis Peres MCV (RBC) [Entitic vol] 85.4 fL Normal 81.0-99.0 [facility] Comment on above: Performed By: #### C BC #### [facility] [address] [place] [address] Dr. Gertrudis Peres MONO # 0.5 103/ul Normal 0.3-0.8 [facility] Comment on above: Performed By: #### C BC #### [facility] [address] [place] [address] Dr. Gertrudis Peres Monocytes/100 WBC (Bld) 8.1 % Normal 1.7-12.0 [facility] Comment on above: Performed By: #### C BC #### [facility] [address] [place] [address] Dr. Gertrudis Peres NEUT # 3.9 103/ul Normal 1.4-6.5 [facility] Comment on above: Performed By: #### C BC #### [facility] [address] [place] [address] Dr. Gertrudis Peres Neutrophils/100 WBC (Bld) 60.4 % Normal 43.0-75.0 [facility] Comment on above: Performed By: #### C BC #### [facility] [address] [place] [address] Dr. Gertrudis Peres Platelet mean volume (Bld) [Entitic vol] 11.3 fL Normal 9.5-13.5 [facility] Comment on above: Performed By: #### C BC #### [facility] [address] [place] [address] Dr. Gertrudis Peres PLT 215 103/ul Normal 150-450 [facility] Comment on above: Performed By: #### C BC #### [facility] [address] [place] [address] Dr. Gertrudis Peres RBC 4.44 106/ul Normal 4.20-5.40 [facility] Comment on above: Performed By: #### C BC #### [facility] [address] [place] [address] Dr. Gertrudis Peres WBC 6.5 103/ul Normal 4.0-11.0 [facility] Comment on above: Performed By: #### C BC #### [facility] [address] [place] [address] Dr. Gertrudis Peres PROF 14(COMP METB)on 022 Albumin [Mass/Vol] 3.7 g/dL Normal 3.4-5.0 [facility] Comment on above: Performed By: #### C MP #### [facility] [address] [place] [address] [address] Gertrudis Peres Albumin/Globulin [Mass ratio] 1.1 {ratio} Normal [facility] Comment on above: Performed By: #### C MP #### [facility] [address] [place] [address] Dr. Gertrudis Peres ALP [Catalytic activity/Vol] 112 U/L Normal 46-116 [facility] Comment on above: Performed By: #### C MP #### [facility] [address] [place] [address] Dr. Gertrudis Peres ALT [Catalytic activity/Vol] 23 U/L Normal 14-59 [facility] Comment on above: Performed By: #### C MP #### [facility] [address] [place] [address] Dr. Gertrudis Peres Anion gap [Moles/Vol] 7.1 mmol/L Normal [facility] Comment on above: Performed By: #### C MP #### [facility] [address] [place] [address] Dr. Gertrudis Peres AST [Catalytic activity/Vol] 18 U/L Normal 15-37 [facility] Comment on above: Performed By: #### C MP #### [facility] [address] [place] [address] Dr. Gertrudis Peres Bilirubin [Mass/Vol] 0.4 mg/dL Normal 0.2-1.0 [facility] Comment on above: Performed By: #### C MP #### [facility] [address] [place] [address] Dr. Gertrudis Peres Calcium [Mass/Vol] 8.6 mg/dL Normal 8.5-10.[address] [facility] Comment on above: Performed By: #### C MP #### [facility] [address] [place] [address] Dr. Gertrudis Peres Chloride [Moles/Vol] 105 mmol/L Normal 98-107 [facility] Comment on above: Performed By: #### C MP #### [facility] [address] [place] [address] [address] Gertrudis Peres CO2 [Moles/Vol] 34.0 mmol/L Critically high 21.0-32.0 [facility] Comment on above: Performed By: #### C MP #### [facility] [address] [place] [address] [address] Gertrudis Peres Creatinine [Mass/Vol] 0.80 mg/dL Normal 0.55-1.02 [facility] Comment on above: Performed By: #### C MP #### [facility] [address] [place] [address] [address] Gertrudis Peres EGFR-AF ROMANIAN >60 Normal >=60 [facility] Comment on above: Performed By: #### C MP #### [facility] [address] [place] [address] Dr. Gertrudis Peres EGFR-NON AF ROMANIAN >60 Normal >=60 [facility] Comment on above: Performed By: #### C MP #### [facility] [address] [place] [address] [address] Gertrudis Peres Globulin (S) [Mass/Vol] 3.5 g/dL Normal [facility] Comment on above: Performed By: #### C MP #### [facility] [address] [place] [address] Dr. Gertrudis Peres Glucose [Mass/Vol] 119 mg/dL Critically high 74-106 [facility] Comment on above: Performed By: #### C MP #### [facility] [address] [place] [address] Dr. Gertrudis Peres Potassium [Moles/Vol] 3.1 mmol/L Critically low 3.5-5.1 [facility] Comment on above: Performed By: #### C MP #### [facility] [address] [place] [address] Dr. Gertrudis Peres Protein [Mass/Vol] 7.2 g/dL Normal 6.4-8.2 [facility] Comment on above: Performed By: #### C MP #### [facility] [address] [place] [address] Dr. Gertrudis Peres Sodium [Moles/Vol] 143 mmol/L Normal 136-145 [facility] Comment on above: Performed By: #### C MP #### [facility] [address] [place], [place] [address] Dr. Gertrudis Peres Urea nitrogen [Mass/Vol] 24.0 mg/dL Critically high 7.0-18.0 [facility] Comment on above: Performed By: #### C MP #### [facility] [address] [place], [place] [address] Dr. Gertrudis Peers Urea nitrogen/Creatinine [Mass ratio] 30.0 mg/mg Normal [facility] Comment on above: Performed By: #### C MP #### [facility] [address] [place], [place] [address] Dr. Gertrudis Peres US SINGLE QUAD UMBILon 09-29 US SINGLE QUAD UMBIL EXAM: US SINGLE ALZARO D UMBIL HISTORY: Anterior abdominal wall mass [...] TIFFANY ROSE Date: 2021-09-29 14:52 Normal [facility] CBC with Diffon 10-04-2018 Abs. Basophil 0.05 k/uL Normal 0.00-0.20 [facility] Comment on above: Performed By: #### C JUANX, CDP #### [facility] [address] [place] [address] Analytical Research Program Manager: Peter Conklin MD Abs.Imm.Granulocyte <0.03 Normal 0.00-0.[address] [facility] Comment on above: Performed By: #### C MPX, CDP #### [facility] [address] [place] [address] Analytical Research Program Manager: Peter Conklin MD Abs.Neutrophil (Seg) 4.64 k/uL Normal 1.50-8.10 [facility] Comment on above: Performed By: #### C MPX, CDP #### [facility] [address] [place], [place] [id number] Analytical Research Program Manager: Peter Conklin MD Basophils/100 WBC (Bld) 1 % Normal 0-[address] [facility] Comment on above: Performed By: #### C MPX, CDP #### [facility] [address] [place], [place] [id number] Analytical Research Program Manager: Peter Conklin MD Eosinophils #/vol (Bld) 0.35 10*3/uL Normal 0.00-0.[address] [facility] Comment on above: Performed By: #### C MPX, CDP #### [address] [place], [place] [id number] Analytical Research Program Manager: ePter Conklin MD Eosinophils/100 WBC (Bld) 4 % Normal 1-[address] [facility] Comment on above: Performed By: #### C MPX, CDP #### [address] [place], [place] [id number] Analytical Research Program Manager: Peter Conklin MD Erythrocyte distribution width Ratio (RBC) 13.8 % Normal 11.8-14.[address] [facility] Comment on above: Performed By: #### C MPX, CDP #### [address] [place], [place] [id number] Analytical Research Program Manager: Peter Conklin MD Hematocrit Volume Fraction (Bld) 44.8 % Normal 36.3-47.[address] [facility] Comment on above: Performed By: #### C MPX, CDP #### [facility] [address] [place], [place] [id number] Analytical Research Program Manager: Peter Conklin MD Hemoglobin mass conc (Bld) 14.1 g/dL Normal 11.9-15.[address] [facility] Comment on above: Performed By: #### C MPX, CDP #### [facility] [address] [place] [address] Analytical Research Program Manager: Peter Conklin MD Immature granulocytes #/vol (Bld) 0 % Normal [address] [facility] Comment on above: Performed By: #### C MPX, CDP #### [facility] [address] [place], [facility] Analytical Research Program Manager: Peter Conklin MD Lymphocytes #/vol (Bld) 2.23 10*3/uL Normal 1.10-3.[address] [facility] Comment on above: Performed By: #### C MPX, CDP #### [facility] [address] [place], [place] [address] Analytical Research Program Manager: Peter Conklin MD Lymphocytes/100 WBC (Bld) 27 % Normal 24-[address] [facility] Comment on above: Performed By: #### C MPX, CDP #### [facility] [address] [place], [place] [id number] Analytical Research Program Manager: Peter Conklin MD MCH Entitic mass (RBC) 27.8 pg Normal 25.2-33.5 [facility] Comment on above: Performed By: #### C MPX, CDP #### [facility] [address] [place], [facility] Analytical Research Program Manager: Peter Conklin MD MCHC mass conc (RBC) 31.5 g/dL Normal 28.4-34.8 [facility] Comment on above: Performed By: #### C MPX, CDP #### [facility] [address] [place] [address] Analytical Research Program Manager: Peter Conklin MD MCV Entitic volume (RBC) 88.4 fL Normal 82.6-102.[address] [facility] Comment on above: Performed By: #### C MPX, CDP #### [facility] [address] [place], [place] [id number] Analytical Research Program Manager: Peter Conklin MD Monocytes #/vol (Bld) 0.84 10*3/uL Normal 0.10-1.[address] [facility] Comment on above: Performed By: #### C MPX, CDP #### [facility] [address] [place], [place] 2100183 Analytical Research Program Manager: Peter Conklin MD Monocytes/100 WBC (Bld) 10 % Normal 3-[address] [facility] Comment on above: Performed By: #### C MPX, CDP #### [facility] [address] [place], [place] [address] Analytical Research Program Manager: Peter Conklin MD Neutrophil (Seg) 58 % Normal 36-65 [facility] Comment on above: Performed By: #### C MPX, CDP #### [address] [place], [facility] Analytical Research Program Manager: Peter Conklin MD NRBC Automated 0.0 per 100 WBC Normal 0.[address] [facility] Comment on above: Performed By: #### C MPX, CDP #### [address] [place], [place] [id number] Analytical Research Program Manager: Peter Conklin MD Platelet mean volume Entitic volume (Bld) 11.7 fL Normal 8.1-13.5 [facility] Comment on above: Performed By: #### C MPX, CDP #### [facility] [address] [place], [place] [id number] Analytical Research Program Manager: Peter Conklin MD Platelets #/vol (Bld) 269 10*3/uL Normal 138-453 [facility] Comment on above: Performed By: #### C MPX, CDP #### [facility] [address] [place], [place] [id number] Analytical Research Program Manager: Peter Conklin MD RBC #/vol (Bld) 5.07 10*6/uL Normal 3.95-5.11 [facility] Comment on above: Performed By: #### C MPX, CDP #### [facility] [address] [place], [place] [id number] Analytical Research Program Manager: Peter Conklin MD WBC #/vol (Bld) 8.1 10*3/uL Normal 3.5-11.3 [facility] Comment on above: Performed By: #### C MPX, CDP #### [facility] [address] [place] [address] Analytical Research Program Manager: Peter Conklin MD Auto Diff Performed NOT REPORTED Normal [facility] Comment on above: Performed By: #### C MPX, CDP #### [address] [place] [address] Analytical Research Program Manager: Peter Conklin MD Platelets #/vol (Bld) NOT REPORTED Normal [facility] Comment on above: Performed By: #### C MPX, CDP #### [address] [place], [place] [id number] Analytical Research Program Manager: Peter Conklin MD RBC morphology finding Nom (Bld) NOT REPORTED Normal [facility] Comment on above: Performed By: #### C MPX, CDP #### [address] [place] [address] Analytical Research Program Manager: Peter Conklin MD WBC Morphology NOT REPORTED Normal [facility] Comment on above: Performed By: #### C MPX, CDP #### [facility] [address] [place], [place] [id number] Analytical Research Program Manager: Peter Conklin MD CT ABDOMEN PELVIS [...] Sushant Dobbs MD 10/04/18 Final result Normal [facility] Comp Metabolic Pr/rfx MGon 0 10-04-2018 (cont.) Normal [facility] Comment on above: Result Comment: Aver age GFR for 60-69 years old: 85 mL/min/1.73sq m Chronic Kidney Disease: <60 mL/min/1.73sq m Kidney failure: <15 mL/min/1.73sq m eGFR calculated using average adult body mass. Additional eGFR calculator available at: [email or web address] Performed By: #### C MPX, CDP #### [facility] [address] [place], [place] [id number] Analytical Research Program Manager: Peter Conklin MD Albumin mass conc 4.3 g/dL Normal 3.5-5.2 [facility] Comment on above: Performed By: #### C MPX, CDP #### [facility] [address] [place], [place] [phone] Analytical Research Program Manager: Peter Conklin MD Albumin/Globulin mass ratio 1.2 {ratio} Normal 1.0-2.[address] [facility] Comment on above: Performed By: #### C MPX, CDP #### [facility] [address] [place], [place] [id number] Analytical Research Program Manager: Peter Conklin MD Alkaline Phos 184 U/L High 35-104 [facility] Comment on above: Performed By: #### C MPX, CDP #### [facility] [address] [place], [place] 9126783 Analytical Research Program Manager: Peter Conklin MD ALT enzyme act/vol 16 U/L Normal 5-[address] [facility] Comment on above: Performed By: #### C MPX, CDP #### [facility] [address] [place], [place] 7279483 Analytical Research Program Manager: Peter Conklin MD Anion gap molar conc 13 mmol/L Normal 9-17 [facility] Comment on above: Performed By: #### C MPX, CDP #### [facility] [address] [place], [place] 8530083 Analytical Research Program Manager: Peter Conklin MD AST enzyme act/vol 20 U/L Normal <[address] [facility] Comment on above: Performed By: #### C MPX, CDP #### [facility] [address] [place], [place] [phone] Analytical Research Program Manager: Peter Conklin MD Bilirubin Ql (U) 0.36 mg/dL Normal 0.3-1.2 [facility] Comment on above: Performed By: #### C MPX, CDP #### [facility] [address] [place], [place] 9336583 Analytical Research Program Manager: Peter Conklin MD BUN/CRE Ratio 53 High 9-20 [facility] Comment on above: Performed By: #### C MPX, CDP #### [facility] [address] [place], [place] 6678983 Analytical Research Program Manager: Peter Conklin MD Calcium mass conc 9.2 mg/dL Normal 8.6-10.4 [facility] Comment on above: Performed By: #### C MPX, CDP #### [facility] [address] [place], [place] 1120483 Analytical Research Program Manager: Peter Conklin MD Chloride molar conc 103 mmol/L Normal 98-[address] [facility] Comment on above: Performed By: #### C MPX, CDP #### [facility] [address] [place], [place] [address]411983 Analytical Research Program Manager: Peter Conklin MD CO2 molar conc 25 mmol/L Normal 20-31 [facility] Comment on above: Performed By: #### C MPX, CDP #### [facility] [address] [place], [place] 6271483 Analytical Research Program Manager: Peter Conklin MD Creatinine mass conc 0.60 mg/dL Normal 0.50-0.90 [facility] Comment on above: Performed By: #### C MPX, CDP #### [facility] [address] [place], [place] 1600183 Analytical Research Program Manager: Peter Conklin MD GFR, Amer >60 Normal >60 [facility] Comment on above: Performed By: #### C MPX, CDP #### [facility] [address] [place], [place] [phone] Analytical Research Program Manager: Peter Conklin MD GFR,non Amer >60 Normal >60 [facility] Comment on above: Performed By: #### C MPX, CDP #### [facility] [address] [place], [place] [phone] Analytical Research Program Manager: Peter Conklin MD Glucose mass conc 123 mg/dL High 70-99 [facility] Comment on above: Performed By: #### C MPX, CDP #### [facility] [address] [place], [place] [phone] Analytical Research Program Manager: Peter Conklin MD Potassium molar conc 4.0 mmol/L Normal 3.7-5.3 [facility] Comment on above: Performed By: #### C MPX, CDP #### [facility] [address] [place], [place] 7285683 Analytical Research Program Manager: Peter Conklin MD Protein mass conc 7.8 g/dL Normal 6.4-8.3 [facility] Comment on above: Performed By: #### C MPX, CDP #### [facility] [address] [place], [place] 9540683 Analytical Research Program Manager: Peter Conklin MD Sodium molar conc 141 mmol/L Normal 135-144 [facility] Comment on above: Performed By: #### C MPX, CDP #### [facility] [address] [place], [place] 4853483 Analytical Research Program Manager: Peter Conklin MD Staging: Normal [facility] Comment on above: Result Comment: Stag e 1: Some kidney damage normal GFR Stage 2: Mild kidney damage GFR 60-89 Stage 3: Moderate kidney damage GFR 30-59 Stage 4: Severe kidney damage GFR 15-29 Stage 5: Severe kidney damage GFR <15 ESRD - chronic treatment by dialysis or transplant Performed By: #### C MPX, CDP #### [facility] [address] [place], [place] 5955983 Analytical Research Program Manager: Peter Conklin MD Urea nitrogen mass conc 32 mg/dL High 8-23 M [facility] Comment on above: Performed By: #### C MPX, CDP #### [facility] [address] [place] [address] Analytical Research Program Manager: Peter Conklin MD Urinalysis, Routineon 2018 Acetoacetic Acid,Ur Negative Normal [facility] Comment on above: Performed By: #### U A, UMICAO #### [facility] [address] [place], [place] [phone] Analytical Research Program Manager: Peter Conklin MD Bilirubin, SemiQt,Ur Negative Normal [facility] Comment on above: Performed By: #### U A, UMICAO #### [facility] [address] [place] [address] Analytical Research Program Manager: Peter Conklin MD Color Nom (U) YELLOW Normal [facility] Comment on above: Performed By: #### U A, UMICAO #### [facility] [address] [place] [address] Analytical Research Program Manager: Peter Conklin MD Glucose,Semi-qnt,Ur Negative Normal [facility] Comment on above: Performed By: #### U A, UMICAO #### [facility] [address] [place] [address] Analytical Research Program Manager: Peter Conklin MD Hemoglobin, Ur 3+ Abnormal NEG [facility] Comment on above: Performed By: #### U A, UMICAO #### [facility] [address] [place] [address] Analytical Research Program Manager: Peter Conklin MD Leuckocyte Esterase SMALL Abnormal [facility] Comment on above: Performed By: #### U A, UMICAO #### [facility] [address] [place], [place] 4101683 Analytical Research Program Manager: Peter Conklin MD Nitrite,Ur Negative Normal [facility] Comment on above: Performed By: #### U A, UMICAO #### [facility] [address] [place], [place] [phone] Analytical Research Program Manager: Peter Conklin MD PH,Ur 5.5 Normal 5.0-9.[address] [facility] Comment on above: Performed By: #### U A, UMICAO #### [facility] [address] [place] [address] Analytical Research Program Manager: Peter Conklin MD Protein mass conc (U) TRACE Abnormal NEG [facility] Comment on above: Performed By: #### U A, UMICAO #### [facility] [address] [place], [place] 6746583 Analytical Research Program Manager: Peter Conklin MD Spec. [place],Ur >1.030 High 1.010-1.020 [facility] Comment on above: Performed By: #### U A, UMICAO #### [address] [place], [place] 2316183 Analytical Research Program Manager: Peter Conklin MD Turbidity SLIGHTLY CLOUDY Abnormal CLEAR [facility] Comment on above: Performed By: #### U A, UMICAO #### [address] [place], [place] 1811983 Analytical Research Program Manager: Peter Conklin MD Urobilinogen,Ur Normal Normal NORM [facility] Comment on above: Performed By: #### U A, UMICAO #### [facility] [address] [place], [place] 6986383 Analytical Research Program Manager: Peter Conklin MD Comment NOT REPORTED Normal [facility] Comment on above: Performed By: #### U A, UMICAO #### [facility] [address] [place], [place] [phone] Analytical Research Program Manager: Peter Conklin MD Urinalysis,Microon -[phone] ----- Normal [facility] Comment on above: Performed By: #### U A, UMICAO #### [facility] [address] [place], [facility]83 Analytical Research Program Manager: Peter Conklin MD Bacteria LM.HPF #/area (Urine sed) TRACE Abnormal [facility] Comment on above: Performed By: #### U A, UMICAO #### [facility] [address] [place] [phone] Analytical Research Program Manager: Peter Conklin MD Epithelial cells LM.HPF #/area (Urine sed) 2 TO 5 Normal 0-[address] [facility] Comment on above: Performed By: #### U A, UMICAO #### [facility] [address] [place] [address] Analytical Research Program Manager: Peter Conklin MD Mucus Strands TRACE Abnormal [facility] Comment on above: Performed By: #### U A, UMICAO #### [facility] [address] [place] [address] Analytical Research Program Manager: Peter Conklin MD RBC #/vol (U) 50 TO 100 Normal 0-2 [facility] Comment on above: Performed By: #### U A, UMICAO #### [address] [place] [id number] Analytical Research Program Manager: Peter Conklin MD WBC #/vol (U) 2 TO 5 Normal 0-5 [facility] Comment on above: Performed By: #### U A, UMICAO #### [facility] [address] [place] [phone] Analytical Research Program Manager: Peter Conklin MD Amorphous sediment LM Ql (Urine sed) NOT REPORTED Normal [facility] Comment on above: Performed By: #### U A, UMICAO #### [facility] [address] [place], [place] [phone] Analytical Research Program Manager: Peter Conklin MD Casts LM.LPF #/area (Urine sed) NOT REPORTED Normal [facility] Comment on above: Performed By: #### U A, UMICAO #### [facility] [address] [place] [address] Analytical Research Program Manager: Peter Conklin MD Crystals LM Nom (Urine sed) NOT REPORTED Normal [facility] Comment on above: Performed By: #### U A, UMICAO #### [facility] [address] [place], [place] 8454083 Analytical Research Program Manager: Peter Conklin MD Epithelial, Renal NOT REPORTED Normal [address] [facility] Comment on above: Performed By: #### U A, UMICAO #### [facility] [address] [place] [address] Analytical Research Program Manager: Peter Conklin MD Other Observations NOT REPORTED Normal [facility] Comment on above: Performed By: #### U A, UMICAO #### [facility] [address] [place] [address] Analytical Research Program Manager: Peter Conklin MD Trichomonas NOT REPORTED Normal NONE [facility] Comment on above: Performed By: #### U A, UMICAO #### [facility] [address] [place], [place] [phone] Analytical Research Program Manager: Peter Conklin MD Yeast LM Ql (Urine sed) NOT REPORTED Normal [facility] Comment on above: Performed By: #### U A, UMICAO #### [facility] [address] [place], [place] 7422383 Analytical Research Program Manager: Peter Conklin MD Vital Signs Date Time Vital Sign Value Performing Clinician Facility 02-12-2025 09:59-0400 Body height 161.29 cm [employer] Work Phone: [facility] 02-12-2025 09:59-0400 Body mass index (BMI) [Ratio] 35.2 kg/m2 [employer] Work Phone: [facility] 02-12-2025 09:59-0400 Body weight 91.79 kg Mckinley Ball DO Work Phone: [facility] 02-12-2025 09:59-0400 Diastolic blood pressure 82 mm[Hg] Mckinley Ball DO Work Phone: [facility] 02-12-2025 09:59-0400 Heart rate 61 /min Mciknley Ball DO Work Phone: [facility] 02-12-2025 09:59-0400 Respiratory rate 12 /min Mckinley Ball DO Work Phone: [facility] 02-12-2025 09:59-0400 Systolic blood pressure 159 mm[Hg] Mckinley Ball DO Work Phone: [facility] 01-12-2025 14:45-0400 Body height 161.29 cm Mckinley Ball DO Work Phone: [facility] 01-12-2025 14:45-0400 Body mass index (BMI) [Ratio] 35.9 kg/m2 Mckinley Ball DO Work Phone: [facility] 01-12-2025 14:45-0400 Body weight 93.49 kg Mckinley Ball DO Work Phone: [facility] 01-12-2025 14:45-0400 Diastolic blood pressure 76 mm[Hg] Mckinley Ball DO Work Phone: [facility] 01-12-2025 14:45-0400 Diastolic blood pressure 88 mm[Hg] Mckinley Ball DO Work Phone: [facility] 01-12-2025 14:45-0400 Heart rate 61 /min Mckinley Ball DO Work Phone: [facility] 01-12-2025 14:45-0400 Respiratory rate 12 /min Mckinley Ball DO Work Phone: [facility] 01-12-2025 14:45-0400 Systolic blood pressure 156 mm[Hg] Mckinley Ball DO Work Phone: [facility] 01-12-2025 14:45-0400 Systolic blood pressure 139 mm[Hg] Mckinley Ball DO Work Phone: [facility] 12-22-2024 13:49-0400 Body height 161.29 cm Mckinley Ball DO Work Phone: [facility] 12-22-2024 13:49-0400 Body mass index (BMI) [Ratio] 36.1 kg/m2 Mckinley Ball DO Work Phone: [facility] 12-22-2024 13:49-0400 Body weight 94 kg Mckinley Ball DO Work Phone: [facility] 12-22-2024 13:49-0400 Diastolic blood pressure 88 mm[Hg] Mckinley Ball DO Work Phone: [facility] 12-22-2024 13:49-0400 Heart rate 62 /min Mckinley Ball DO Work Phone: [facility] 12-22-2024 13:49-0400 Respiratory rate 12 /min Mckinley Ball DO Work Phone: [facility] 12-22-2024 13:49-0400 Systolic blood pressure 155 mm[Hg] Mckinley Ball DO Work Phone: [facility] 11-18-2024 08:36-0400 Body height 161.29 cm Mckinley Ball DO Work Phone: [facility] 11-18-2024 08:36-0400 Body mass index (BMI) [Ratio] 36.1 kg/m2 Mckinley Ball DO Work Phone: [facility] 11-18-2024 08:36-0400 Body weight 93.95 kg Mckinley Ball DO Work Phone: [facility] 11-18-2024 08:36-0400 Diastolic blood pressure 89 mm[Hg] Mckinley Ball DO Work Phone: [facility] 11-18-2024 08:36-0400 Heart rate 58 /min Mckinley Ball DO Work Phone: [facility] 11-18-2024 08:36-0400 Respiratory rate 12 /min Mckinley Ball DO Work Phone: [facility] 11-18-2024 08:36-0400 Systolic blood pressure 139 mm[Hg] Mckinley Ball DO Work Phone: [facility] 10-29-2024 10:40-0400 Body height 161.29 cm Mckinley Ball DO Work Phone: [facility] 10-29-2024 10:40-0400 Body mass index (BMI) [Ratio] 36.1 kg/m2 Mckinley Ball DO Work Phone: [facility] 10-29-2024 10:40-0400 Body weight 93.89 kg Mckinley Ball DO Work Phone: [facility] 10-29-2024 10:40-0400 Diastolic blood pressure 82 mm[Hg] Mckinley Ball DO Work Phone: [facility] 10-29-2024 10:40-0400 Heart rate 58 /min Mckinley Ball DO Work Phone: [facility] 10-29-2024 10:40-0400 Respiratory rate 12 /min Mckinley Ball DO Work Phone: [facility] 10-29-2024 10:40-0400 Systolic blood pressure 152 mm[Hg] Mckinley Ball DO Work Phone: [facility] 10-03-2024 14:07-0400 Body height 161.29 cm Mckinley Ball DO Work Phone: [facility] 10-03-2024 14:07-0400 Body mass index (BMI) [Ratio] 36.1 kg/m2 Mckinley Ball DO Work Phone: [facility] 10-03-2024 14:07-0400 Body temperature 98 [degF] Mckinley Ball DO Work Phone: [facility] 10-03-2024 14:07-0400 Body weight 93.89 kg Mckinley Ball DO Work Phone: [facility] 10-03-2024 14:07-0400 Diastolic blood pressure 76 mm[Hg] Mckinley Ball DO Work Phone: [facility] 10-03-2024 14:07-0400 Heart rate 80 /min Mckinley Ball DO Work Phone: [facility] 10-03-2024 14:07-0400 Respiratory rate 18 /min Mckinley Ball DO Work Phone: [facility] 10-03-2024 14:07-0400 SaO2% (BldA) [Mass fraction] 93 % Mckinley Ball DO Work Phone: [facility] 10-03-2024 14:07-0400 Systolic blood pressure 129 mm[Hg] Mckinley Ball DO Work Phone: [facility] 08-23-2024 10:58-0400 Body height 161.29 cm [facility] 08-23-2024 10:58-0400 Body mass index (BMI) [Ratio] 35.9 kg/m2 [facility] 08-23-2024 10:58-0400 Body temperature 97.1 [degF] [facility] 08-23-2024 10:58-0400 Body weight 93.49 kg [facility] 08-23-2024 10:58-0400 Diastolic blood pressure 73 mm[Hg] [facility] 08-23-2024 10:58-0400 Heart rate 73 /min [facility] 08-23-2024 10:58-0400 Respiratory rate 16 /min [facility] 08-23-2024 10:58-0400 SaO2% (BldA) [Mass fraction] 97 % [facility] 08-23-2024 10:58-0400 Systolic blood pressure 111 mm[Hg] [facility] 08-08-2024 08:40-0400 Body height 161.29 cm [facility] 08-08-2024 08:40-0400 Body mass index (BMI) [Ratio] 35.9 kg/m2 [facility] 08-08-2024 08:40-0400 Body weight 93.55 kg [facility] 08-08-2024 08:40-0400 Diastolic blood pressure 73 mm[Hg] [facility] 08-08-2024 08:40-0400 Heart rate 59 /min [facility] 08-08-2024 08:40-0400 Respiratory rate 12 /min [facility] 08-08-2024 08:40-0400 Systolic blood pressure 145 mm[Hg] [facility] 05-15-2024 14:35-0500 Body height 161.29 cm [facility] 05-15-2024 14:35-0500 Body mass index (BMI) [Ratio] 36.4 kg/m2 [facility] 05-15-2024 14:35-0500 Body temperature 97.3 [degF] [facility] 05-15-2024 14:35-0500 Body weight 94.8 kg [facility] 05-15-2024 14:35-0500 Diastolic blood pressure 80 mm[Hg] [facility] 05-15-2024 14:35-0500 Heart rate 65 /min [facility] 05-15-2024 14:35-0500 Respiratory rate 19 /min [facility] 05-15-2024 14:35-0500 SaO2% (BldA) [Mass fraction] 95 % [facility] 05-15-2024 14:35-0500 Systolic blood pressure 139 mm[Hg] [facility] 03-13-2024 09:29-0400 Body height 160.02 cm [facility] 03-13-2024 09:29-0400 Body mass index (BMI) [Ratio] 37.6 kg/m2 [facility] 03-13-2024 09:29-0400 Body weight 96.38 kg [facility] 03-13-2024 09:29-0400 Diastolic blood pressure 81 mm[Hg] [facility] 03-13-2024 09:29-0400 Heart rate 80 /min [facility] 03-13-2024 09:29-0400 Respiratory rate 12 /min [facility] 03-13-2024 09:29-0400 Systolic blood pressure 142 mm[Hg] [facility] 01-29-2024 10:03-0400 Body height 160.02 cm [facility] 01-29-2024 10:03-0400 Body mass index (BMI) [Ratio] 37.2 kg/m2 [facility] 01-29-2024 10:03-0400 Body weight 95.36 kg [facility] 01-29-2024 10:03-0400 Diastolic blood pressure 78 mm[Hg] [facility] 01-29-2024 10:03-0400 Heart rate 61 /min [facility] 01-29-2024 10:03-0400 Respiratory rate 12 /min [facility] 01-29-2024 10:03-0400 Systolic blood pressure 139 mm[Hg] [facility] 10-30-2023 09:35-0400 Body height 160.02 cm DO Mckinley Ball Work Phone: [facility] 10-30-2023 09:35-0400 Body mass index (BMI) [Ratio] 37.3 kg/m2 DO Mckinley Ball Work Phone: [facility] 10-30-2023 09:35-0400 Body weight 95.42 kg DO Mckinley Ball Work Phone: [facility] 10-30-2023 09:35-0400 Diastolic blood pressure 89 mm[Hg] DO Mckinley Ball Work Phone: [facility] 10-30-2023 09:35-0400 Heart rate 82 /min DO Mckinley Ball Work Phone: [facility] 10-30-2023 09:35-0400 Respiratory rate 12 /min DO Mckinley Ball Work Phone: [facility] 10-30-2023 09:35-0400 Systolic blood pressure 164 mm[Hg] DO Mckinley Ball Work Phone: [facility] 10-12-2023 09:18-0400 Body height 160.02 cm DO Mckinley Ball Work Phone: [facility] 10-12-2023 09:18-0400 Body mass index (BMI) [Ratio] 37 kg/m2 DO Mckinley Ball Work Phone: [facility] 10-12-2023 09:18-0400 Body weight 94.85 kg DO Mckinley Ball Work Phone: [facility] 10-12-2023 09:18-0400 Diastolic blood pressure 77 mm[Hg] DO Mckinley Ball Work Phone: [facility] 10-12-2023 09:18-0400 Heart rate 77 /min DO Mckinley Ball Work Phone: [facility] 10-12-2023 09:18-0400 Respiratory rate 12 /min DO Mckinley Ball Work Phone: [facility] 10-12-2023 09:18-0400 Systolic blood pressure 148 mm[Hg] DO Mckinley Ball Work Phone: [facility] 07-30-2023 15:01-0400 Body height 160.02 cm DO Mckinley Ball Work Phone: [facility] 07-30-2023 15:01-0400 Body mass index (BMI) [Ratio] 36.6 kg/m2 DO Mckinley Ball Work Phone: [facility] 07-30-2023 15:01-0400 Body weight 93.66 kg DO Mckinley Ball Work Phone: [facility] 07-30-2023 15:01-0400 Diastolic blood pressure 90 mm[Hg] DO Mckinley Ball Work Phone: [facility] 07-30-2023 15:01-0400 Heart rate 75 /min DO Mckinley Ball Work Phone: [facility] 07-30-2023 15:01-0400 Systolic blood pressure 149 mm[Hg] DO Mckinley Ball Work Phone: [facility] 06-13-2023 09:00-0500 Body height 161.29 cm Mckinley Ball Other [facility] [email or web address] Other 06-13-2023 09:00-0500 Body mass index (BMI) [Ratio] 35.43 kg/m2 Mckinley Ball Other [facility] Other 06-13-2023 09:00-0500 Body weight 92.17 kg Mckinley Ball Other [facility] Other 06-13-2023 09:00-0500 Diastolic blood pressure 77 mm[Hg] Mckinley Ball Other [facility] Other 06-13-2023 09:00-0500 Respiratory rate 12 /min Mckinley Ball Other [facility] Other 06-13-2023 09:00-0500 Systolic blood pressure 127 mm[Hg] Mckinley Ball Other [facility] Other 05-03-2023 08:30-0500 Body height 161.29 cm Mckinley Ball Other [facility] Other 05-03-2023 08:30-0500 Body mass index (BMI) [Ratio] 35.39 kg/m2 Mckinley Ball Other [facility] Other 05-03-2023 08:30-0500 Body weight 92.08 kg Mckinley Ball Other [facility] Other 05-03-2023 08:30-0500 Diastolic blood pressure 79 mm[Hg] Mckinley Ball Other [facility] Other 05-03-2023 08:30-0500 Respiratory rate 12 /min Mckinley Ball Other [facility] Other 05-03-2023 08:30-0500 Systolic blood pressure 133 mm[Hg] Mckinley Ball Other [facility] Other 03-08-2023 09:30-0400 Body height 161.29 cm Mckinley Ball Other [facility] Other 03-08-2023 09:30-0400 Body mass index (BMI) [Ratio] 35.01 kg/m2 Mckinley Ball Other [facility] Other 03-08-2023 09:30-0400 Body weight 91.08 kg Mckinley Ball Other [facility] Other 03-08-2023 09:30-0400 Diastolic blood pressure 83 mm[Hg] Mckinley Ball Other [facility] Other 03-08-2023 09:30-0400 Respiratory rate 12 /min Mckinley Ball Other [facility] Other 03-08-2023 09:30-0400 Systolic blood pressure 134 mm[Hg] Mckinley Ball Other [facility] Other 01-04-2023 11:30-0400 Body height 161.29 cm Mckinley Ball Other [facility] Other 01-04-2023 11:30-0400 Body mass index (BMI) [Ratio] 34.69 kg/m2 Mckinley Ball Other [facility] Other 01-04-2023 11:30-0400 Body weight 90.27 kg Mckinley Ball Other [facility] Other 01-04-2023 11:30-0400 Diastolic blood pressure 81 mm[Hg] Mckinley Ball Other [facility] Other 01-04-2023 11:30-0400 Respiratory rate 12 /min Mckinley Ball Other [facility] Other 01-04-2023 11:30-0400 Systolic blood pressure 131 mm[Hg] Mckinley Ball Other [facility] Other 12-12-2022 07:50-0400 Body height 153.1 cm Gustavo Li MD Work Phone: [facility] 12-12-2022 07:50-0400 Body mass index (BMI) [Ratio] 38.4 kg/m2 Gustavo Li MD Work Phone: [facility] 12-12-2022 07:50-0400 Body weight 90 kg Gustavo Li MD Work Phone: [facility] 11-01-2022 14:30-0400 Body height 161.29 cm Keara Bullard Other [facility] Other 11-01-2022 14:30-0400 Body mass index (BMI) [Ratio] 35.22 kg/m2 Keara Bullard Other [facility] Other 11-01-2022 14:30-0400 Body weight 91.63 kg Keara Bullard Other [facility] Other 11-01-2022 14:30-0400 Diastolic blood pressure 84 mm[Hg] Keara Bullard Other [facility] Other 11-01-2022 14:30-0400 Systolic blood pressure 130 mm[Hg] eKara Bullard Other [facility] Other 09-28-2022 10:05-0400 Diastolic blood pressure 75 mm[Hg] DO [place] Work Phone: [facility] 09-28-2022 10:05-0400 Heart rate 60 /min DO Mclaughlin [employer] Work Phone: [facility] 09-28-2022 10:05-0400 Respiratory rate 16 /min DO Arnoldo [employer] Work Phone: [facility] 09-28-2022 10:05-0400 SaO2% (BldA) [Mass fraction] 98 % DO Arnoldo [employer] Work Phone: [facility] 09-28-2022 10:05-0400 Systolic blood pressure 153 mm[Hg] DO Arnoldo Nixon Work Phone: [facility] 09-28-2022 07:48-0400 Body height 160.02 cm DO Arnoldo Nixon Work Phone: [facility] 09-28-2022 07:48-0400 Body temperature 98.9 [degF] DO Arnoldo [employer] Work Phone: [facility] 09-28-2022 07:48-0400 Body weight 93.89 kg DO Arnoldo [employer] Work Phone: [facility] 07-04-2022 09:30-0500 Body height 161.29 cm Mckinley Ball Other [employer] [facility] [employer] Other 07-04-2022 09:30-0500 Body mass index (BMI) [Ratio] 36.3 kg/m2 Mckinley Ball Other [facility] Other 07-04-2022 09:30-0500 Body weight 94.44 kg Mckinley Ball Other [facility] Other 07-04-2022 09:30-0500 Diastolic blood pressure 78 mm[Hg] Mckinley Ball Other [facility] Other 07-04-2022 09:30-0500 Respiratory rate 12 /min Mckinley Ball Other [facility] Other 07-04-2022 09:30-0500 Systolic blood pressure 122 mm[Hg] Mckinley Alfaro Other [facility] Other 03-09-2022 15:30-0400 Body height 161.29 cm Arabella Arechiga Other [facility] Other 03-09-2022 15:30-0400 Body mass index (BMI) [Ratio] 36.79 kg/m2 Arabella Arechiga Other [facility] Other 03-09-2022 15:30-0400 Body temperature 97.1 [degF] Arabella Arechiga Other [facility] Other 03-09-2022 15:30-0400 Body weight 95.71 kg Arabella Arechiga Other [facility] Other 03-09-2022 15:30-0400 Diastolic blood pressure 85 mm[Hg] Arabella Arechiga Other [facility] Other 03-09-2022 15:30-0400 Respiratory rate 18 /min Arabella Arechiga Other [facility] Other 03-09-2022 15:30-0400 SaO2% (BldA) [Mass fraction] 99 % Arabella Arechiga Other [facility] Other 03-09-2022 15:30-0400 Systolic blood pressure 135 mm[Hg] Arabella Arechiga Other [facility] Other Encounters Encounter Date Encounter Type Care Provider Facility Start: 02-12-2025 End: 02-12-2025 ambulatory Mckinley Alfaro DO Work Phone: [facility] Work Phone: Start: 02-12-2025 End: 02-12-2025 Patient encounter procedure Mckinley Ball DO -[facility] Work Phone: Start: 01-12-2025 End: 01-12-2025 ambulatory Mckinley Ball DO Work Phone: [facility] Work Phone: Start: 01-12-2025 End: 01-12-2025 Patient encounter procedure Mckinley Ball DO -[facility] Work Phone: Start: 12-22-2024 End: 12-22-2024 ambulatory Mckinley Ball DO Work Phone: [facility] Work Phone: Start: 12-22-2024 End: 12-22-2024 Patient encounter procedure Mckinley Ball DO -[facility] Work Phone: Start: 11-18-2024 End: 11-18-2024 ambulatory Mckinley Ball DO Work Phone: [facility] Work Phone: Start: 11-18-2024 End: 11-18-2024 Patient encounter procedure Mckinley Ball DO -[facility] Work Phone: Start: 10-29-2024 End: 10-29-2024 ambulatory Mckinley Ball DO Work Phone: [facility] Work Phone: Start: 10-29-2024 End: 10-29-2024 Patient encounter procedure Mckinley Ball DO Work Phone: [facility] Work Phone: Start: 10-03-2024 End: 10-03-2024 Patient encounter procedure Mckinley Ball DO Work Phone: [facility] Work Phone: Start: 09-16-2024 End: 09-16-2024 Patient encounter procedure Mckinley Ball DO Work Phone: [facility] [address] Work Phone: Start: 09-16-2024 End: 09-16-2024 ambulatory Mckinley Ball DO Work Phone: [facility] Work Phone: Start: 08-23-2024 End: 08-23-2024 ambulatory [facility] [place] Work Phone: Start: 08-23-2024 End: 08-23-2024 Patient encounter procedure [facility] Work Phone: Start: 08-12-2024 Non-patient / Non-visit [facility] Work Phone: Start: 08-08-2024 End: 08-08-2024 ambulatory [facility] Work Phone: Start: 08-08-2024 End: 08-08-2024 Patient encounter procedure [facility] Work Phone: Start: 05-15-2024 End: 05-15-2024 Patient encounter procedure [facility] Work Phone: Start: 03-13-2024 End: 03-13-2024 ambulatory [facility] Work Phone: Start: 03-13-2024 End: 03-13-2024 Patient encounter procedure [facility] Work Phone: Start: 02-26-2024 Non-patient / Non-visit [facility] Work Phone: Start: 01-29-2024 End: 01-29-2024 ambulatory [facility] [place] Work Phone: Start: 01-29-2024 End: 01-29-2024 Patient encounter procedure [facility] Work Phone: Start: 12-31-2023 Non-patient / Non-visit [facility] Work Phone: Start: 12-03-2023 Non-patient / Non-visit [facility] Work Phone: Start: 11-19-2023 Non-patient / [facility] Work [facility]: Start: 10-30-2023 End: 10-30-2023 ambulatory DO Mckinley Ball Work Phone: [facility] Work Phone: Start: 10-30-2023 End: 10-30-2023 Patient encounter procedure DO Mckinley Ball Work Phone: [facility] Work Phone: Start: 10-12-2023 End: 10-12-2023 ambulatory DO Mckinley Ball Work Phone: [facility] Work Phone: Start: 10-12-2023 End: 10-12-2023 Patient encounter procedure DO Mckinley Ball Work Phone: [facility] Work Phone: Start: 09-13-2023 End: 09-13-2023 ambulatory DO Mckinley Ball Work Phone: [facility] Work Phone: Start: 09-13-2023 End: 09-13-2023 Patient encounter procedure DO Mckinley Ball Work Phone: [facility] [address] Work Phone: Start: 09-12-2023 End: 09-12-2023 ambulatory DO Mckinley Ball Work Phone: [facility] Work Phone: Start: 09-12-2023 End: 09-12-2023 Patient encounter procedure DO Mckinley Ball Work Phone: [facility] [address] Work Phone: Start: 09-06-2023 End: 09-07-2023 ambulatory JIL HONG Not Available Start: 08-23-2023 End: 08-23-2023 ambulatory JIL Yakov SHERRIE Not Available Start: 08-03-2023 Non-patient / Non-visit DO Augie Alfaro Work Phone: [facility] [email or web address] Work Phone: Start: 07-30-2023 End: 07-30-2023 Patient encounter procedure DO Mckinley Alfaro Work Phone: [facility] Work Phone: Start: 07-26-2023 End: 07-27-2023 ambulatory JIL HONG Not Available Start: 07-10-2023 End: 07-10-2023 ambulatory JIL HONG Not Available Start: 06-15-2023 End: 06-15-2023 ambulatory LYRIC Soraida RODRIGUEZ Not Available Start: 06-13-2023 Office outpatient vi sit 15 minutes Mckinley Alfaro [facility] Start: 06-13-2023 End: 06-14-2023 ambulatory JOHN JEROME [facility] Other Start: 06-12-2023 End: 06-12-2023 ambulatory DELL [...] 05-18-2023 End: 05-18-2023 ambulatory Mckinley Alfaro Other [facility] Other Start: 05-18-2023 Telephone encounter Mckinley BRYANT [facility] Start: 05-10-2023 End: 05-10-2023 ambulatory RACHELLE JETER Not Available Start: 05-08-2023 End: 05-08-2023 ambulatory JIL Yakov SHERRIE Not Available Start: 05-07-2023 End: 05-08-2023 ambulatory AL SALGADO Not Available Start: 05-03-2023 End: 05-03-2023 ambulatory IVONNE CASTELLANO [facility] Other Start: 05-03-2023 Office outpatient vi sit 15 minutes Mckinley Alfaro [facility] Start: 04-30-2023 End: 05-01-2023 ambulatory IVONNE CASTELLANO [...] 03-08-2023 End: 03-08-2023 ambulatory Mckinley Alfaro Other [facility] Other Start: 03-08-2023 Office outpatient vi sit 15 minutes Mckinley Alfaro [facility] Start: 02-07-2023 End: 02-07-2023 ambulatory Mckinley Alfaro Other [facility] Other Start: 02-07-2023 Telephone encounter Mckinley BRYANT [facility] Start: 01-04-2023 End: 01-04-2023 ambulatory Mckinley Alfaro Other [facility] Other Start: 01-04-2023 Encounter for other preprocedural examination Mckinley Alfaro [facility] Start: 01-04-2023 Office outpatient vi sit 25 minutes Mckinley Alfaro [facility] Start: 12-21-2022 Message Mckinley chase Work Phone: [facility] Work Phone: Start: 12-12-2022 End: 12-12-[address] Gustavo Li Facility:[id number] Start: 12-12-2022 End: 12-12-2022 Subsequent hospital visit by physician Gustavo Li MD Work Phone: [facility] Comment on above: Polyp of stomach and duodenum Start: 11-16-2022 End: 11-16-2022 ambulatory Mckinley Alfaro Other [facility] Other Start: 11-16-2022 Telephone encounter Mckinley Saleem MANNY [facility] Start: 11-01-2022 End: 11-01-2022 ambulatory Keara Bullard Other [facility] Other Start: 11-01-2022 Office outpatient vi sit 15 minutes Keara Bullard [facility] Start: 09-28-2022 End: 09-28-2022 Admission to same day surgery center DO Arnoldo House Work Phone: [facility] Work Phone: Start: 09-28-2022 End: 09-28-2022 ambulatory DO Arnoldo House Work Phone: [facility] Work Phone: Start: 07-20-2022 End: 07-20-2022 ambulatory Mckinley Alfaro Other [facility] Other Start: 07-20-2022 Telephone encounter Mckinley Alfaro MANNY [facility] Start: 07-19-2022 End: 07-20-[address] MCKINLEY ALFARO Facility:H1 Start: 07-04-2022 End: 07-04-2022 ambulatory Mckinley Alfaro Other [facility] Other Start: 07-04-2022 Office outpatient vi sit 25 minutes Mckinley Alfaro [facility] Start: 06-14-2022 End: 06-14-2022 ambulatory Arabella Arechiga Other [facility] Other Start: 06-14-2022 Telephone encounter Arabella vega [facility] Start: 06-13-2022 End: 06-14-[address] MCKINLEY ALFARO Facility:[facility]1 Start: 06-07-2022 End: 06-07-[address] MCKINLEY ALFARO Facility:[facility] Start: 05-03-2022 End: 05-04-[address] MCKINLEY ALFARO Facility:[facility] Start: 03-31-2022 End: 04-01-[address] MCKINLEY ALFARO Facility:[facility] Start: 03-09-2022 End: 03-09-2022 ambulatory Arabella Arechiga Other [facility] Other Start: 03-09-2022 Office outpatient vi sit 15 minutes Arabella Arechiga [facility] Start: 09-29-2021 End: 09-30-[address] MCKINLEY ALFARO Facility:[facility]1 Start: 10-05-2018 End: 10-05-2018 Emergency department patient visit MCKINLEY ALFARO [facility] Start: 10-04-2018 End: 10-04-2018 Emergency department patient visit HARJIT OLIVIA [facility] Start: 09-25-2017 End: 09-26-2017 Ambulatory DEFAULT PHYSICIAN Facility:[facility] Start: 09-07-2017 End: 09-08-2017 Ambulatory DEFAULT PHYSICIAN Facility:[facility] Procedures Date Procedure Procedure Detail Performing Clinician Start: 09-13-2023 Plain X-ray of bilateral hands DO Grayson in [employer] Work Phone: Start: 09-13-2023 Plain chest X-ray DO Mckinley [employer] Work Phone: Start: 12-12-2022 SURGICAL PATHOLOGY RESULTS [...] Start: 09-12-2023 Hepatitis B core antibody measurement [facility] Start: 09-12-2023 [facility] Start: 01-19-2023 Influenza vaccination Influenza Vaccine (#1) [facility] Start: 09-28-2022 [facility] Start: 2017 Pneumococcal Vaccine: 65+ Years (1 - PCV) Pneumococcal Vaccine: 65+ Years (1 - PCV) [facility] Start: 2002 Zoster Vaccines (1 of 2) Zoster Vaccines (1 of 2) [facility] Start: 1992 Screening for malignant neoplasm of breast Mammogram [facility] Start: 1974 DTaP/Tdap/Td Vaccines (1 - Tdap) DTaP/Tdap/Td Vaccines (1 - Tdap) [facility] Start: 1970 Hepatitis C screening Hepatitis C Screening [facility] Start: 1952 COVID-19 Vaccine (#1) COVID-19 Vaccine (#1) [facility] Start: 1952 Lipid panel Lipid Panel [facility] Start: 1952 Screening for malignant neoplasm of colon [facility] Start: 1952 Screening for osteoporosis Bone Density Scan [facility] Start: 1952 Yearly Adult Physical Yearly Adult Physical [facility] Comprehensive metabo lic 1999 panel - Serum or Plasma [facility] Comprehensive metabo lic 1999 panel - Serum or Plasma [facility] Hepatitis B virus jimenez rface Ab [Presence] in Serum [facility] Hepatitis B virus jimenez rface Ag [Presence] in Serum or Plasma by Immunoassay [facility] Hepatitis C virus Ig G Ab [Presence] in Serum or Plasma by Immunoassay [facility] MG Breast - bilatera l Screening [facility] Patient Education Esophageal Dil ation Hiatal Hernia (DC) Stomach Polyps [facility] Work Phone: Rheumatoid factor [Units/volume] in Serum or Plasma [facility] Thyroid stimulating immunoglobulins actual/normal in Serum [facility] Urine culture [facility] XR Hip - left 2 Views [facility] Immunizations Immunization Date Immunization Notes Care Provider Fa velia 02-12-2025 influenza, high dose seasonal, preservative-free Mckinley Ball DO Work Phone: [facility] 01-29-2024 influenza, high dose seasonal, preservative-free [facility] 03-08-2023 influenza virus vaccine, unspecified formulation DO Mckinley Ball Work Phone: [facility] 03-08-2023 influenza, high dose seasonal, preservative-free Mckinley Ball Other [employer] [facility] [employer] Other 04-07-2022 diphtheria, tetanus toxoids and acellular pertussis vaccine, unspecified formulation Mckinley Ball Other [facility] 04-07-2022 tetanus toxoid, reduced diphtheria toxoid, and acellular pertussis vaccine, adsorbed [facility] 03-01-2022 influenza virus vaccine, split virus (incl. purified surface antigen) Mckinley Ball Other [facility] Other 03-01-2022 influenza virus vaccine, unspecified formulation DO Mckinley Alfaro Work Phone: [facility] 02-13-2021 Influenza vaccine, quadrivalent, adjuvanted [facility] 08-21-2020 COVID-19 mRNA-1273 (Moderna) [facility] 07-24-2020 COVID-19 mRNA-1273 (Moderna) [facility] 02-09-2020 Fluzone QIV High-Dos e 65YR+ [facility] 08-04-2019 pneumococcal conjuga te vaccine, 13 valent Mckinley Alfaro Other [facility] 02-19-2019 influenza, injectabl e, quadrivalent, preservative free [facility] 03-06-2018 influenza, injectabl e, quadrivalent, preservative free [facility] 01-28-2018 influenza, injectabl e, quadrivalent, preservative free [facility] 01-30-2017 influenza, injectabl e, quadrivalent, preservative free [facility] 03-21-2015 influenza, injectabl e, madin niecy canine kidney, preservative free [facility] 01-01-2013 tetanus toxoid, reduced diphtheria toxoid, and acellular pertussis vaccine, adsorbed [facility] Payers Date Payer Category Payer Self-pay [id number] 2024 Unknown [id number] 2015 Unknown [id number] 2015 Unknown [id number] 1959 Medicare [id number] 2..[id number] 1959 Self-pay [id number] 1959 Unknown [id number] 2.16.840.1.318921.19 1952 Unknown [id number] 2.16.840.1.512870.3.579.2.1 73 1952 Unknown [id number] 2.16.840.1.335880.3.579.2.1 73 1952 Unknown [id number] 2.16.840.1.272994.3.579.2.5 93 1952 Unknown [id number] 2.16.840.1.343112.3.579.2.5 93 1952 Unknown [id number] 2.16.840.1.373011.3.579.2.5 93 1952 Unknown [id number] 2.16.840.1.774265.3.579.2.5 93 1952 Unknown [id number] 2.16.840.1.740583.3.579.2.5 93 1952 Unknown [id number] 2.16.840.1.000843.3.579.2.1 069 1952 Unknown [id number] 2.16.840.1.332531.3.579.2.1 259 1952 Unknown [id number] 2.16.840.1.854070.3.579.2.1 259 1952 Unknown [id number] 2.16.840.1.606889.3.579.2.1 259 1952 Unknown [id number] 2.16.840.1.985119.3.579.2.1 259 1952 Unknown [id number] 2.16.840.1.624737.3.579.2.1 259 1952 Unknown [id number] 2.16.840.1.386068.3.579.2.1 259 1952 Unknown [id number] 2.16.840.1.119874.3.579.2.1 259 1952 Unknown [id number] 2.16.840.1.488827.3.579.2.1 259 1952 Unknown [id number] 2.16.840.1.137224.3.579.2.1 259 1952 Unknown [id number] 2.16.840.1.820296.3.579.2.1 259 1952 Unknown [id number] 2.16.840.1.258818.3.579.2.1 259 1952 Unknown [id number] 2.16.840.1.604821.3.579.2.1 259 1952 Unknown [id number] 2.16.840.1.653807.3.579.2.1 259 1952 Unknown [id number] 2.16.840.1.867740.3.579.2.1 259 1952 Unknown [id number] 2.16.840.1.399485.3.579.2.1 259 1952 Unknown [id number] 2.16.840.1.310043.3.579.2.1 259 1952 Unknown [id number] 2.16.840.1.071001.3.579.2.1 259 1952 Unknown [id number] 2.16.840.1.538006.3.579.2.1 259 1952 Unknown [id number] 2.16.840.1.772488.3.579.2.1 259 1952 Unknown [id number] 2.16.840.1.646619.3.579.2.1 259 1952 Unknown [id number] 2.16.840.1.176203.3.579.2.1 259 1952 Unknown [id number] 2.16.840.1.591680.3.579.2.1 259 1952 Unknown [id number] 2.16.840.1.567869.3.579.2.1 259 1952 Unknown [id number] 2.16.840.1.480353.3.579.2.1 259 1952 Unknown [id number] 2.16.840.1.336210.3.579.2.1 259 1952 Unknown [id number] 2.16.840.1.661902.3.579.2.1 259 1952 Unknown [id number] 2.16.840.1.160355.3.579.2.1 259 1952 Unknown [id number] 2.16.840.1.267743.3.579.2.1 259 1952 Unknown [id number] 2.16.840.1.822392.3.579.2.1 259 Medicare Medicare-OP No Part B [id number] Unknown Unknown [id number] 2.16.840.1.949361.3.579.2.5 93 Unknown [id number] 2.16.840.1.695691.3.579.2.5 31 Worker's Compensation [employer] [facility] [id number] Social History Date Type Detail Facility Unknown if ever smoked [facility] [employer] Other Sex Assigned At [facility] Other Start: 09-28-2022 End: 08-23-2024 Tobacco smoking status MTIS Never smoked tobacco (finding) [facility] Start: 1950 Sex Assigned At Female F [facility] Tobacco smoking status MTIS Tobacco smoking consumption unknown [facility] Work Phone: Start: 1950 Sex Assigned At Not on file [facility] Work Phone: Start: 08-08-2024 End: 10-29-2024 Sex Female (finding) [facility] Goals Date Patient Goal Desired Activity /State Clinical Notes 03-09-2022 to 11-18-2024 Note Date & Type Note Facility 11-18-2024 Evaluation note Diagnosis Onset Date Resolution Age-related osteoporosis without current pathological fracture acute November 18, 2024 8 :17am GERD (gastroesophageal reflux disease) acute November 18, 2024 8 :17am Hypertension acute November 18 8:17am IFG (impaired fasting glucose) acute November 18, 2024 8 :17am Impacted cerumen of right ear acute November 18, 2024 8 :17am Lumbar spondylosis acute November 182024 8:17am Obesity acute November 18, 2024 8:17am Opiate analgesic use agreement exists acute November 18, 2024 8:17am Psoriatic arthritis acute November 18, 2024 8:17am Allergic contact dermatitis noneactive December 22, 2024 1:37pm Acute cystitis noneactive December 1:37pm Monilial vaginitis noneactive December 22, 2024 1:37pm Hypertension acute January 12, 2025 2:04pm Allergic contact dermatitis noneactive January 12 2:04pm Pruritic condition noneactive January 12, 2025 2:04pm Hypertension acute February 122024 9:50am IFG (impaired fasting glucose) acute February 12, 2025 9:50am Obesity acute January 9:50am [facility] Work Phone: 1(225) 584-187106-11-2025 Evaluation note* Diagnosis Onset Date Resolution Status Admit Date UTI (urinary tract infection) noneac tive October 29, 2024 10:22am Polyuria noneactive October 29 10:22am Cough noneactive October 29 10:22am Acute bronchitis due to othe r specified organisms noneactive October 29, 2 025 10:22am Age-related osteoporosis without current pathological fracture acute November 18, 2024 8 :17am GERD (gastroesophageal reflu x disease) acute November 18, 2024 8 :17am Hypertension acute November 18 8:17am IFG (impaired fasting glucose) acute November 18, 2024 8 :17am Impacted cerumen of right ear acute November 18, 2024 8:17am Lumbar spondylosis acute November 182024 8:17am Obesity acute November 18, 2024 8:17am Opiate analgesic use agreement exists acute November 18, 2024 8:17am Psoriatic arthritis acute November 18, 2024 8:17am Allergic contact dermatitis noneacti ve December 22, 2024 1:37pm Acute cystitis noneactive December 1:37pm Monilial vaginitis noneactive December 22, 2024 1:37pm [facility] Work Phone: 1(166) 451-229505-16-2025 Evaluation note* Diagnosis Onset Date Resolution Status Admit Date Bronchitis acute October 03, 2024 2:02pm UTI (urinary tract infection) noneac tive October 29, 2024 10:22am Polyuria noneactive October 29 10:22am Cough noneactive October 29 10:22am Acute bronchitis due to othe r specified organisms noneactive October 29 025 10:22am Age-related osteoporosis without current pathological fracture acute November 18, 2024 8 :17am GERD (gastroesophageal reflu x disease) acute November 18, 2024 8 :17am Hypertension acute November 18 8:17am IFG (impaired fasting glucose) acute November 18, 2024 8 :17am Impacted cerumen of right ear acute November 18, 2024 8:17am Lumbar spondylosis acute November 182024 8:17am Obesity acute November 18, 2024 8:17am Opiate analgesic use agreement exists acute November 18, 2024 8:17am Psoriatic arthritis acute November 18, 2024 8:17am Allergic contact dermatitis noneacti ve December 22, 2024 1:37pm Acute cystitis noneactive December 1:37pm Monilial vaginitis noneactive December 22, 2024 1:37pm [facility] Work Phone: 1(899) 243-571204-05-2025 Evaluation note* Diagnosis Onset Date Resolution Status Admit Date Viral URI with cough acute Apri l 2024 10:54am Bronchitis acute October 03, 2024 2:02pm UTI (urinary tract infection) noneac tive October 29, 2024 10:22am Polyuria noneactive October 29 10:22am Cough noneactive October 29 10:22am Acute bronchitis due to othe r specified organisms noneactive October 29 025 10:22am Age-related osteoporosis without current pathological fracture acute November 18, 2024 8 :17am GERD (gastroesophageal reflu x disease) acute November 18, 2024 8 :17am Hypertension acute November 18 8:17am IFG (impaired fasting glucose) acute November 18, 2024 8:17am Impacted cerumen of right ear acute November 18, 2024 8:17am Lumbar spondylosis acute November 182024 8:17am Obesity acute November 18, 2024 8:17am Opiate analgesic use agreeme nt exists acute November 18, 2024 8 :17am Psoriatic arthritis acute November 18, 2024 8:17am [facility] Work Phone: 1(833) 885-659203-21-2025 Evaluation note* Diagnosis Onset Date Resolution Status Admit Date Age-related osteoporosis without current pathological fracture acute August 08, 2024 8:27am GERD (gastroesophageal reflu x disease) acute August 08, 2024 8:27am Hypertension acute August 08, 2024 8:27am Hypothyroid acute August 08, 025 8:27am IFG (impaired fasting glucose) acute August 08, 2024 8:27am Opiate analgesic use agreeme nt exists acute August 08, 2024 8:27am Psoriatic arthritis acute August 08, 2024 8:27am Medicare annual wellness visit, subsequent noneactive August 08 8:27am Screening mammogram for giovani st cancer noneactive August 08, 2024 8:27am [facility] Work Phone: 1(911) 399-159703-21-2025 Evaluation note* Diagnosis Onset Date Resolution Status Admit Date Age-related osteoporosis without current pathological fracture acute August 08, 2024 8:27am GERD (gastroesophageal reflu x disease) acute August 08, 2024 8:27am Hypertension acute August 08, 2024 8:27am Hypothyroid acute August 08, 025 8:27am IFG (impaired fasting glucose) acute August 08, 2024 8:27am Opiate analgesic use agreeme nt exists acute August 08, 2024 8:27am Psoriatic arthritis acute August 08, 2024 8:27am Medicare annual wellness visit, subsequent noneactive August 08 8:27am Screening mammogram for giovani st cancer noneactive August 08, 2024 8:27am Viral URI with cough acute Apri l 2024 10:54am [facility] Work Phone: 1([phone]) 168-346603-21-2025 Evaluation note* Diagnosis Onset Date Resolution Status Admit Date Age-related osteoporosis without current pathological fracture acute August 08, 2024 8:27am GERD (gastroesophageal reflu x disease) acute August 08, 2024 8:27am Hypertension acute August 08, 2024 8:27am Hypothyroid acute August 08, 2 025 8:27am IFG (impaired fasting glucose) acute August 08, 2024 8:27am Opiate analgesic use agreeme nt exists acute August 08, 2024 8:27am Psoriatic arthritis acute August 08, 2024 8:27am Medicare annual wellness visit, subsequent noneactive August 08 8:27am Screening mammogram for giovani st cancer noneactive August 08, 2024 8:27am Viral URI with cough acute Apri l 2024 10:54am Bronchitis acute October 03, 2024 2:02pm [facility] Work Phone: 1(100) 179-817912-26-2024 Evaluation note* Diagnosis Onset Date Resolution Status Admit Date Acute maxillary sinusitis deleted May 15, 2024 1:46pm Age-related osteoporosis without current pathological fracture acute August 08, 2024 8:27am GERD (gastroesophageal reflux disease) acute August 08, 2024 8:27am Hypertension acute August 08, 2024 8:27am Hypothyroid acute August 08, 2 025 8:27am IFG (impaired fasting glucose) acute August 08, 2024 8:27am Opiate analgesic use agreement exists acute August 08 8:27am Psoriatic arthritis acute August 08, 2024 8:27am Medicare annual wellness visit, subsequent noneactive August 08 8:27am Screening mammogram for breast cancer noneactive August 08, 2024 8:27am [facility] Work Phone: 1(155) 460-808001-24-2024 Evaluation note* Encounter Date Diagnosis Assessment Notes [...] Orthopedics w/ increased pain or trigger finger [facility] Other 12-14-2023 Evaluation note* Encounter Date Diagnosis [...] index [BMI] 35.0-35.9, adult (ICD-10 - Z68.35) [facility] Other 10-19-2023 Evaluation note* Encounter Date Diagnosis [...] to r/o fracture Continue Mobic and add [place] for now. Consider PT if XR negative Feb, Right hip pain (ICD-10 - M25.551) XR to determine degree of arthritis and r/o fx. ROM exercises COntinue Mobic and add [place] for now. Feb, Seborrheic dermatitis (ICD-10 - [...] index [BMI] 35.0-35.9, adult (ICD-10 - Z68.35) [facility] Other 08-17-2023 Evaluation note* Encounter Date Diagnosis [...] also instructed to stop Mobic and start [place], 7 days prior to her procedure. Dec, Gastroesophageal reflux disease with esophagitis without hemorrhage (ICD-10 - K21.00) Stable, continue medication w/o interruption Dec, Traumatic complete tear of right rotator cuff, subsequent encounter (ICD-10 - S46.011D) Scheduled for arthroscopic repair w/ Dr. Hong. 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 Refer to note in patient chart for documentation of history and physical. Providers: Gustavo Li MD (Doctor), Sara Castillo RN (Nurse), Maciel Ferrer, Labor Mediator Referring: Gustavo Li MD Medicines: See the [...] biopsy result. 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02-14-2023 Evaluation note* Encounter Date Diagnosis Assessment [...] exercise for 30 minutes, 3-5 times weekly. [facility] Other 10-20-2022 Evaluation note* Encounter Date Diagnosis [...] with primary care provider to discuss reaction. [facility] Other Evaluation [facility]No [facility] Other Evaluation note* Diagnosis Onset Date Resolution Status Dysphagia acute [facility] Work Phone: Evaluation note* Diagnosis Polyp of stomach and duodenum documented in this encounter [facility] Work Phone: Evaluation note* Diagnosis Onset Date Resolution Status Age-related osteoporosis wit hout current pathological fracture acute Dupuytren's contracture of right hand acute GERD (gastroesophageal reflux disease) acute Hypertension acute Inflammatory polyarthritis a cute Lumbar spondylosis acute Trigger finger acute Medicare annual wellness visit, subsequent noneactive Screening mammogram for breast cancer noneactive [facility] Work Phone: Evaluation note* Diagnosis [...] Strain of hip and thigh acut e [facility] Work Phone: Evaluation note* Diagnosis Onset Date Resolution Status Left hip pain acute Primary osteoarthritis of hip acute Strain of hip and thigh acut e Age-related osteoporosis wit hout current pathological fracture acute Fibromyalgia acute GERD (gastroesophageal reflux disease) acute Hypertension acute Inflammatory polyarthritis a cute Lumbar spondylosis acute Trigger finger acute [facility] Work Phone: Evaluation note* Diagnosis Onset Date Resolution Status Age-related osteoporosis wit hout current pathological fracture acute Fibromyalgia acute GERD (gastroesophageal reflux disease) acute Hypertension acute Lumbar spondylosis acute Opiate analgesic use agreement exists acute Psoriatic arthritis acute [facility] Work Phone: Evaluation note* Diagnosis Onset Date Resolution Status Age-related osteoporosis wit hout current pathological fracture acute Fibromyalgia acute GERD (gastroesophageal reflux disease) acute Hypertension acute Lumbar spondylosis acute Opiate analgesic use agreement exists acute Psoriatic arthritis acute Age-related osteoporosis wit hout current pathological fracture acute Fibromyalgia acute GERD (gastroesophageal reflux disease) acute Hypertension acute Lumbar spondylosis acute Psoriatic arthritis acute [facility] Work Phone: History general Narrative - Reported* Type Description Date Medical History Hypertension Medical History Acid reflux Medical History Hiatal hernia Surgical History back surgery x3 Surgical History Neck Surgery Surgical History shoulder arthroscopy Surgical History hysterectomy Surgical History cholecystectomy Hospitalization History see above [facility] Other [facility] general Narrative - Reported* Type Description Date Medical History Hypertension Medical History Acid reflux Medical History Hiatal hernia Surgical History back surgery x3 Surgical History Neck Surgery Surgical History shoulder arthroscopy Surgical History hysterectomy Surgical History cholecystectomy Surgical History EGD w/ bx and dilatation 09/2022 Hospitalization History see above [facility] Other History general Narrative - Reported* Type Description Date Medical History Hypertension Medical History Acid reflux Medical History Hiatal hernia Surgical History back surgery x3 Surgical History Neck Surgery Surgical History shoulder arthroscopy Surgical History hysterectomy Surgical History cholecystectomy Surgical History EGD w/ bx and dilatation 09/2022 Surgical History Right shoulder arthroscopy 02/07 23 Hospitalization History see above [facility] Other [facility] general Narrative - Reported* Type Description Date Medical History Hypertension Medical History Acid reflux Medical History Hiatal hernia Surgical History back surgery x3 Surgical History Neck Surgery Surgical History shoulder arthroscopy Surgical History hysterectomy Surgical History cholecystectomy Surgical History EGD w/ bx and dilatation 09/2022 Surgical History Right shoulder arthroscopy 02/07 23 Surgical History Endoscopic US 11/2022 Hospitalization History see above [facility] Other Hospital Discharge instructions Additional Instructions DISCHARGE [...] if you have any problems. -Office number [phone] Work Phone: Reason for referral (narrative)No reason for referral information availableTrinity [facility] System Work Phone: Summary Purpose Family History Relationship [...] Admit Date Sinus congestion, headache, earache [facility] 2023 1:46pm Wellness August 08, 2024 8:2 7am Reason for Visit Admit Date Acute maxillary sinusitis May 15, 2024 1:46pm Age-related osteoporosis wit hout current pathological fracture August 08, 2024 8:27am GERD (gastroesophageal reflux disease) [facility] 2024 8:27am Hypertension August 08, 2024 8:2 7am Hypothyroid August 08, 2024 8:2 7am IFG (impaired fasting glucose) July 8:27am Opiate analgesic use agreement exists [facility] 2024 8:27am Psoriatic arthritis August 08, 2024 8:2 7am Medicare annual wellness visit, subseque nt August 08, 2024 8:27am Screening mammogram for breast cancer [facility] 2024 8:27am Chief Complaint Admit Date Wellness August 08, 2024 8:2 7am Sore throat, congestion, right earache A pril 2024 10:54am Reason for Visit Admit Date Age-related osteoporosis wit hout current pathological fracture August 08, 2024 8:27am GERD (gastroesophageal reflux disease) [facility] 2024 8:27am Hypertension August 08, 2024 8:2 7am Hypothyroid August 08, 2024 8:2 7am IFG (impaired fasting glucose) July 8:27am Opiate analgesic use agreement exists [facility] 2024 8:27am Psoriatic arthritis August 08, 2024 8:2 7am Medicare annual wellness visit, subseque nt August 08, 2024 8:27am Screening mammogram for breast cancer [facility] 2024 8:27am Reason for Visit Admit Date Age-related osteoporosis wit hout current pathological fracture August 08, 2024 8:27am GERD (gastroesophageal reflux disease) [facility] 2024 8:27am Hypertension August 08, 2024 8:2 7am Hypothyroid August 08, 2024 8:2 7am IFG (impaired fasting glucose) July 8:27am Opiate analgesic use agreement exists [facility] 2024 8:27am Psoriatic arthritis August 08, 2024 8:2 7am Medicare annual wellness visit, subseque nt August 08, 2024 8:27am Screening mammogram for breast cancer [facility] 2024 8:27am Viral URI with cough August 23, 2024 10: 54am Chief Complaint Admit Date Wellness August 08, 2024 8:2 7am Sore throat, congestion, right earache A pril 2024 10:54am E03.9 September 16, 2024 11: 26am Sore throat, congestion October 03, 2024 2 :02pm Sore throat, Ear ache October 29, 2024 10 :22am Reason for Visit Admit Date Age-related osteoporosis wit hout current pathological fracture August 08, 2024 8:27am GERD (gastroesophageal reflux disease) [facility] 2024 8:27am Hypertension August 08, 2024 8:2 7am Hypothyroid August 08, 2024 8:2 7am IFG (impaired fasting glucose) July 8:27am Opiate analgesic use agreement exists [facility] 2024 8:27am Psoriatic arthritis August 08, 2024 8:2 7am Medicare annual wellness visit, subseque nt August 08, 2024 8:27am Screening mammogram for breast cancer [facility] 2024 8:27am Viral URI with cough August 23, 2024 10: 54am Bronchitis October 03, 2024 2:02p m Chief Complaint Admit Date Sore throat, congestion, right earache A pril 2024 10:54am E03.9 September 16, 2024 11: 26am Sore throat, congestion October 03, 2024 2 :02pm Sore throat, Ear ache October 29, 2024 10 :22am 3 month f/u November 18, 2024 8:17a m Reason for Visit Admit Date Viral URI with cough August 23, 2024 10: 54am Bronchitis October 03, 2024 2:02p m UTI (urinary tract infection) October 29, 2024 10:22am Polyuria October 29, 2024 10:2 2am Cough October 29, 2024 10:2 2am Acute bronchitis due to other specified organisms October 29, 2024 10:22am Age-related osteoporosis wit hout current pathological fracture November 18, 2024 8:17am GERD (gastroesophageal reflux disease) J [facility] 2024 8:17am Hypertension November 18, 2024 8:17a m IFG (impaired fasting glucose) November 18, 2024 8:17am Impacted cerumen of right ear November 18, 2024 8:17am Lumbar spondylosis November 18, 2024 8:17a m Obesity November 18, 2024 8:17a m Opiate analgesic use agreement exists Ju ly 2024 8:17am Psoriatic arthritis November 18, 2024 8:17a m Chief Complaint Admit Date Sore throat, congestion October 03, 2024 2 :02pm Sore throat, Ear ache October 29, 2024 10 :22am 3 month f/u November 18, 2024 8:17a m poison dolores December 22, 2024 1:3 7pm Reason for Visit Admit Date Bronchitis October 03, 2024 2:02p m UTI (urinary tract infection) October 29, 2024 10:22am Polyuria October 29, 2024 10:2 2am Cough October 29, 2024 10:2 2am Acute bronchitis due to other specified organisms October 29, 2024 10:22am Age-related osteoporosis wit hout current pathological fracture November 18, 2024 8:17am GERD (gastroesophageal reflux disease) J [facility] 2024 8:17am Hypertension November 18, 2024 8:17a m IFG (impaired fasting glucose) November 18, 2024 8:17am Impacted cerumen of right ear November 18, 2024 8:17am Lumbar spondylosis November 18, 2024 8:17a m Obesity November 18, 2024 8:17a m Opiate analgesic use agreement exists Ju ly 2024 8:17am Psoriatic arthritis November 18, 2024 8:17a m Allergic contact dermatitis December 22, 2024 1:37pm Acute cystitis December 22, 2024 1:3 7pm Monilial vaginitis December 22, 2024 1:3 7pm Chief Complaint Admit Date Sore throat, Ear ache October 29, 2024 10 :22am 3 month f/u November 18, 2024 8:17a m poison dolores December 22, 2024 1:3 7pm poison dolores January 12, 2025 2: 04pm Reason for Visit Admit Date UTI (urinary tract infection) October 29, 2024 10:22am Polyuria October 29, 2024 10:2 2am Cough October 29, 2024 10:2 2am Acute bronchitis due to other specified organisms October 29, 2024 10:22am Age-related osteoporosis wit hout current pathological fracture November 18, 2024 8:17am GERD (gastroesophageal reflux disease) J 2024 8:17am Hypertension November 18, 2024 8:17a m IFG (impaired fasting glucose) November 18, 2024 8:17am Impacted cerumen of right ear November 18, 2024 8:17am Lumbar spondylosis November 18, 2024 8:17a m Obesity November 18, 2024 8:17a m Opiate analgesic use agreement exists ly 2024 8:17am Psoriatic arthritis November 18, 2024 8:17a m Allergic contact dermatitis December 22, 2024 1:37pm Acute cystitis December 22, 2024 1:3 7pm Monilial vaginitis December 22, 2024 1:3 7pm Chief Complaint Admit Date 3 month f/u November 18, 2024 8:17a m poison dolores December 22, 2024 1:3 7pm poison dolores January 12, 2025 2: 04pm 1 month f/u Adipex February 12, 2025 9:50am Reason for Visit Admit Date Age-related osteoporosis wit hout current pathological fracture November 18, 2024 8:17am GERD (gastroesophageal reflux disease) J 2024 8:17am Hypertension November 18, 2024 8:17a m IFG (impaired fasting glucose) November 18, 2024 8:17am Impacted cerumen of right ear November 18, 2024 8:17am Lumbar spondylosis November 18, 2024 8:17a m Obesity November 18, 2024 8:17a m Opiate analgesic use agreement exists Ju ly 2024 8:17am Psoriatic arthritis November 18, 2024 8:17a m Allergic contact dermatitis December 22, 2024 1:37pm Acute cystitis December 22, 2024 1:3 7pm Monilial vaginitis December 22, 2024 1:3 7pm Hypertension January 12, 2025 2: 04pm Allergic contact dermatitis January 12, 2025 2:04pm Pruritic condition January 12, 2025 2: 04pm Hypertension February 12, 2025 9:50am IFG (impaired fasting glucose) February 12, 2025 9:50am Obesity February 12, 2025 9:50am Additional Source Comments INFORMATION SOURCE (unrecogn ized section and content) DATE CREATED AUTHOR 11/08/2017 [facility] DATE CREATED AUTHOR AUTHOR'S ORGANIZ ATION 10/13/2018 [facility] DATE CREATED AUTHOR AUTHOR'S ORGANIZ ATION 07/21/2022 [facility] DATE CREATED AUTHOR AUTHOR'S ORGANIZ ATION 12/21/2022 [facility] DATE CREATED AUTHOR AUTHOR'S ORGANIZ ATION 12/22/[address] [facility] DATE CREATED AUTHOR AUTHOR'S ORGANIZ ATION 09/10/2023 [facility] EPIC DATE CREATED AUTHOR AUTHOR'S ORGANIZ ATION 09/25/2024 [facility] REASON FOR VISIT (unrecogniz ed section and content) Reason Comments Other EGD/EUS D49.0 [id number] Care Teams (unrecognized sec tion and content) Team Status: Active Member Role Status Dates Mckinley Alfaro DO Primary Care Provider Active Team Status: Inactive Member Role Status Dates Mckniley Alfaro DO Primary Care Provider Active Start: [...] Active Niurka Oliveira MD Attending Provider Active Work From Home Relationship Specialty Start Date End Date Mckinley [...] 2024 Team Status: Inactive Member Role Status Lara Alfaro DO Primary Care Provide r, Attending Provider Active Start: March 13, 2024 End: March 13, 2024 Team Status: Active Member Role Status Lara Alfaro DO Primary Care Provide r, Attending Provider Active Start: August 12, 2024 Team Status: Inactive Member Role Status Lara Alfaro DO Primary Care Provider Active Start: August 23, 2024 End: August 23, 2024 Raya Hernandez APRN Attending Provider Active S tart: August 23, 2024 End: August 23, 2024 Team Status: Inactive Member Role Status Dates Mckinley Alfaro , Primary Care Provider Active Start: September 16, 2024 End: September 16, 2024 Tano Tsai MD Attending Provider Active St art: September 16, 2024 End: September 16, 2024 Team Status: Inactive Member Role Status Dates Mckinley Alfaro , DO Primary Care Provider Active Start: October 03, 2024 End: October 03, 2024 Raya Hernandez APRN Attending Provider Active S tart: October 03, 2024 End: October 03, 2024 Team Status: Inactive Member Role Status Dates Mckinley Alfaro , DO Primary Care Provide r, Attending Provider Active Start: October 29, 2024 End: October 29, 2024 Team Status: Inactive Member Role Status Lara Alfaro , Primary Care Provider Active Start: October 29, 2024 End: October 29, 2024 Mckinley Alfaro , DO Attending Provider Active Sta rt: October 29, 2024 End: October 29, 2024 Team Status: Inactive Member Role Status Lara Alfaro , Primary Care Provider Active Start: November 18, 2024 End: November 18, 2024 Mckinley Alfaro , DO Attending Provider Active Sta rt: November 18, 2024 End: November 18, 2024 Team Status: Inactive Member Role Status Lara Aflaro , DO Primary Care Provider Active Start: December 22, 2024 End: December 22, 2024 Mckinley Alfaro , DO Attending Provider Active Sta rt: December 22, 2024 End: December 22, 2024 Team Status: Inactive Member Role Status Lara Alfaro , DO Primary Care Provider Active Start: January 12, 2025 End: January 12, 2025 Mckinley Alfaro , DO Attending Provider Active Sta rt: January 12, 2025 End: January 12, 2025 Team Status: Inactive Member Role Status Lara Alfaro , DO Primary Care Provider Active Start: February 12, 2025 End: February 12, 2025 Mckinley Alfaro , DO Attending Provider Active Sta rt: February 12, 2025 End: February 12, 2025 Goals (unrecognized section and content) Goals may [...] THE PRIMARY CLINICAL RECORDS. [facility] [employer] [facility]. provides no warranty or guarantee of the accuracy or completeness of information in this document.
[2025-02-13 07:58] LABS: Glucose Urine UA NEGATIVE (NEGATIVE)
== END 2025-02-13 07:40 | disposition home or self-care (01) ==
PROVIDERS: PCP Internal Medicine; Visit Provider Internal Medicine
DX: R30.0 Dysuria (principal)
CPT/HCPCS: 81003; 87086

== ENCOUNTER 2025-05-11 10:31 | Outpatient (OUT) | payer MEDICARE, OTHER, SELFPAY ==
--- OUTSIDE RECORDS SUMMARY | 2025-05-07 06:17 | XMS_ITS | Continuity of Care Document ---
Author Organization [facility] Address [address] [place] [address] Phone Care Team Providers Care Director Of Reservations Name Role Phone DominicMckinley Primary Care Provider Mckinley Alfaro DO Attending Provider Care Teams Patient Care Team Team Status: Active Member Role/Relationship Status Dates Mckinley Alfaro DO Primary Care Provider Active Visit Care Team Team Status: Inactive Member Role/Relationship Status Dates Mckinley Alfaro DO Primary Care Provider Active Start: February 12, 2025 End: February 12Jamia Herbert ProviderActiveStart: February 12, 2025 End: February 12, 2025 Visit Care Team Team Status: Inactive Member Role/Relationship Status Dates Mckinley Alfaro DO Attending Provider Active Sta rt: February 13, 2025 End: February 13, 2025 Visit Care Team Team Status: Active Member Role/Relationship Status Dates Mckinley Alfaro DO Primary Care Provider Active Start: February 13, 2025 Jamia Desai ProviderActiveStart: February 13, 2025 Patient Care Team Team Status: Inactive Member Role/Relationship Status Dates Mckinley Alfaro DO Primary Care Provider Active Start: May 07, 2025 End: May 07Jamia Herbert ProviderActiveStart: May 07, 2025 End: May 07, 2025 Chief Complaint and Reason for Visit Chief Complaint Admit Date 1 month f/u Adipex February 12, 2025 9:50am Unknown February 13, 2025 7:45am 3 month f/u May 07, 2025 10:29am Reason for Visit Admit Date Dysuria February 12, 2025 9:50am Hypertension February 12, 2025 9:50am IFG (impaired fasting glucose) February 12, 2025 9:50am Obesity February 12, 2025 9:50am Aphthous stomatitis February 12, 2025 9:50am Age-related osteoporosis wit hout current pathological fracture May 07, 2025 10:29am GERD (gastroesophageal reflux disease) D ecember 2024 10:29am Hypertension May 07, 2025 10:29am IFG (impaired fasting glucose) May 07, 2025 10:29am Lumbar spondylosis May 07, 2025 10:29am Obesity May 07, 2025 10:29am Opiate analgesic use agreement exists [facility]2024 10:29am Psoriatic arthritis May 07, 2025 10:29am Screening mammogram for breast cancer [facility] 2024 10:29am Allergies, Adverse Reactions, Alerts Allergen Type Severity Reaction Last Updated Verified Status Comments tizanidine Allergy Mild Insomnia May 07, 2025 10:30am Yes Active adhesive tapeAllergyUnknownRedness of SkinMay 07, 2025 10:30amYesActive Onset Date: 04/19/2016nitrofurantoinAllergyUnknownComment:MacrobidDecember 2024 10:30amYesActivePenicillinsAllergyUnknownSwelling of Lip/Tongue/Throat May 07, 2025 10:30amYesActiveOnset Date: 04/19/2016sulfamethoxazole AllergyUnknownUnknown ReactionDecedignity [facility] 2024 10:30amYesActivetrimethoprim AllergyUnknownUnknown ReactionDeceer 2024 10:30amYesActiveciprofloxacin AllergyUnknownMouth Sores2024 10:30amYesActive Social History Smoking Status Status Start Date End Date Date of Observa tion Never smoked tobacco (finding) August 23, 2024 11:05am Observation Status Observation Response Date of Response Legal Sex Female (finding) Sex [facility]igned [facility]FemaleD[facility] 1949 Family History Relationship Condition Age at Onset Recorded Date/T ricardo father History of coronary artery bypass surgery Unknown Diabetes mellitusUnknownDementiaUnknownmotherHypertensionUnknownMyocardial infarctionUnknownsisterDiabetes mellitusUnknownfatherHeart diseaseUnknown Diabetes mellitusUnknownfamily memberFamily history of colon cancerUnknownmother Heart diseaseUnknown Problems Active Problems Problem Diagnosis/Recorded Date Onset Date Status C omments High risk medication use August 08, 2024 8:12am Unknown Active Inflammatory polyarthritisMarch 2023 2:46pmUnknownActiveDupuytren's contracture of right handMarch 2023 3:04pmUnknownActiveMorbid (severe) obesity due to excess caloriesMarch 2023 1:36pmUnknownActiveAge-related osteoporosis without current pathological fractureMarch 2023 1:36pmUnknown ActiveReclast: first dose 04/2023Screening mammogram for breast cancerDeceer 2024 10:52amUnknownActiveViral URI with coughApril 2024 10:58am UnknownActiveBPPV (benign paroxysmal positional vertigo)March 13, 2024 8:34pmUnknownActiveOpiate analgesic use agreement existsFormerly [facility]20[facility] 9:10am UnknownActivePsoriatic arthritisApril 2023 12:03pmUnknownActivePsoriatic arthritisFormerly [facility] 20[facility] 9:08amUnknownActiveDysuriaSeptember 2024 9:03am UnknownActiveFibromyalgiaJune 2018 7:53amUnknownActiveHypercholesterolemia August 08, 2024 8:12amUnknownActiveHypothyroidMarch 2023 2:47pmUnknown ActiveIFG (impaired fasting glucose)April 30, 2024 10:33amUnknownActive Primary osteoarthritis of hipMay 2023 8:42amUnknownActiveTrigger finger July 30, 2023 3:05pmUnknownActiveSchatzki's ringMarch 2023 1:36pmUnknown ActiveImpacted cerumen of right earJuly 2024 8:19amUnknownActiveGERD (gastroesophageal reflux disease)October 21, 2018 7:51amUnknownActiveLeft breast lumpNovember 2023 10:56amUnknownActiveIrritable bowel syndrome with constipationMarch 2023 1:36pmUnknownActiveBronchitisMay 2024 1:55pm UnknownActiveHypertensionJune 2018 7:50amUnknownActiveLumbar spondylosis March 2023 1:36pmUnknownActiveObesityJuly 2024 8:12amUnknownActive Inactive/Resolved Problems Problem Diagnosis/Recorded Date Onset Date Status C omments Edema of left lower extremity February 23, 2017 8:20am Unk nown Resolved DysphagiaMay 2022 8:40amUnknownResolvedProblem List clean-up per request of Phys. EHR CmteNon-healing surgical woundOct2016 8:20amUnknown Resolvedleft lower leg s/p after melanoma surgery and skin graftGERD (gastroesophageal reflux disease)April 20, 2017 10:00amUnknownResolved Problem List clean-up per request of Phys. EHR Cmte Medications Medication Status Dose Units Route Directions Qty Days Refills S tart Date Stop Date End Date Reason(s) Instructions Adherence Atenolol 100 mg tablet Discontinued 0 .ROUTE.KDUBMTN233Xmon 2023 3:46pmApril 2024 10:04amTAKE 1 TABLET BY MOUTH EVERY DAYHydrocodone-Acetaminophen 5-325 mg zsclqsQvswscfhngej8MFENCFwgpj daily as needed for bjyz66103Ustk 2023September 2023 9:20am Spondylosis of lumbar spine Spondylosis without myelopathy or radiculopathy, lumbar regionp/u 12/09, start 12/10Hydrochlorothiazide 25 mg tabletDiscontinued0.ROUTE.FSKNYVJ453Wnhoswv 2023 9:41amApril 2024 10:04amTAKE 1 TABLET BY MOUTH EVERY DAYHydrocodone- Acetaminophen 5-325 mg gwtwvmLttuzeaulxlb2DLZDZZuboz daily as needed for pain60 300October ecember 2023 10:23amSpondylosis of lumbar spine Spondylosis without myelopathy or radiculopathy, lumbar regionstart 03/17 Cholecalciferol (Vitamin D3) 50 mcg (2,000 unit) uphespxLrjqbg486QJXMKMpleb89481 March 16, 2024 11:00pmComplies with drug therapyPotassium Chloride 10 mEq capsule, extended tfwyocrEycjuczqzgbd85PRYTDRvmql dailyDeceer 2023 11:05amApril 2024 10:03amMeloxicam 15 mg tabletDiscontinued0.ROUTE.COMPLEX 903January 2024 7:27pmApril 2024 10:04amTAKE 1 TABLET BY MOUTH EVERY DAYHydrocodone-Acetaminophen 5-325 mg fofjijWnkfinebjzea5ZXUCWQerpz daily as needed for djaj50264Fdevmca 2024March 2024 7:54amSpondylosis of lumbar spine Spondylosis without myelopathy or radiculopathy, lumbar regionstart 06/16 Hydrocodone-Acetaminophen 5-325 mg luanhmNnupvzakukjz1GXLDWTsfku daily as needed for lhbu32083Yamaw pril 2024 12:30pmSpondylosis of lumbar spine Spondylosis without myelopathy or radiculopathy, lumbar regionstart 08/05Atenolol 100 mg tabletActive0.ROUTE.TKUKSMP715Ahblj 2024 6:47amTAKE 1 TABLET BY MOUTH EVERY DAYComplies with drug therapyHydrocodone-Acetaminophen 5-325 mg emmmaqPqmcicizhuly2QPBDKEpsim daily as needed for uxmn86242Yuwne 2024June 2024 10:10amSpondylosis of lumbar spine Spondylosis without myelopathy or radiculopathy, lumbar regionLeflunomide 20 mg zwjvqvExukncwcrfds70JDEATmccc94695Ocxbq 2024 11:00pmMay 2024 1:09pm Hydrocodone-Acetaminophen 5-325 mg hiycwvBrpuvvbnzznu9CUPLIQpzoo daily as needed for wnco80627Mkvq 2024July 2024 11:02amSpondylosis of lumbar spine Spondylosis without myelopathy or radiculopathy, lumbar regionHydrocodone- Acetaminophen 5-325 mg yogtwiLegwnfmrlqnw7XDNMWMmyai daily as needed for pain60 300July ugu2024 1:56pmSpondylosis of lumbar spine Spondylosis without myelopathy or radiculopathy, lumbar regionPhentermine (Adipex-P) 37.5 mg vuwijxPyntomserrts56.4FZLRTeptw16505Hnsf 2024 11:00pm December 08, 2024 4:55pmObesity Obesity, class 2 Morbid (severe) obesity due to excess calories Body mass index [BMI] 36.0-36.9, adultmust administer 30 minutes before or 1-2 hours after breakfastPhentermine (Adipex-P) 37.5 mg cfqpdrBjtarfjvgtxi07.5MGPO Nkmam68169Svrb 2024 4:54pmDecember 2024 10:36amObesity Obesity, class 2 Morbid (severe) obesity due to excess calories Body mass index [BMI] 36.0-36.9, adultmust administer 30 minutes before or 1-2 hours after breakfastPrednisone 20 mg kxynvtShsiueyxlkqa58IFXW.AOSMNLW4835Nsundi 2024 5:28pmAugust 2024 1:55pm20 mg orally; 1 PO tid w/ food x 2 days then bid w/ food x 3 days then qd w/ food x 4 daysDoxycycline Hyclate 100 mg nbzbqriGujozodqvpkp291CWWZIhwmq qemdr928Qrwgja 2024 11:00pmDecember 2024 10:36amHydrocodone-Acetaminophen 5-325 mg bzszrpVjwyad7JNHAWQmsxd daily as needed for kyaq10725Nirvponik 2024Spondylosis of lumbar spine Spondylosis without myelopathy or radiculopathy, lumbar regionComplies with drug therapyHydrochlorothiazide 25 mg ddhfmtIzqydy11VKLYYfjil64250Xxwnawk 2024 12:36pmComplies with drug therapyValsartan-Hydrochlorothiazide 80-12.5 mg EfetypXjjeiiveljwn9FYCWOBlzlnLznbg 2017 11:00[facility] 2017 9:59am Calcium Carbonate (Calcium 500) 500 mg calcium (1,250 mg) GfelkqYfuetdfkamiz2122 MGPODailyApril 2017 11:00pmFormerly [facility]2018 7:46amOmeprazole 20 mg Capsule,Delayed Release(Dr/Ec)Gcfwkzwkuymm40SEMSWpmalTuxym 2017 11:00pm April 08, 2018 7:29amMultivitamin With Minerals (Hair,Skin And Nails) DvtixbBbxklmxwtyrx3MMRVENrykzGeieu 2017 11:00pmFormerly [facility]2018 7:46am Olmesartan-Hydrochlorothiazide (Benicar Hct) 20-12.5 mg TisivgVkiungxhqtcr5OVHJO DailyUofl Health - [facility] 2017 12:00amFormerly [facility]2018 7:47amAspirin (Aspir-81) 81 mg Tablet,Delayed Release (Dr/Ec)Pckboglovqwg61EQAXHmlteTeogvhea 2017 12:00am September 28, 2022 6:46amOmega XhpWmorwerrprnm5TKVSWLmcjrQrxkppcw 2017 12:00am September 28, 2022 6:45amAtenolol 100 mg UrjcytIlbwpoxrjlfy938WHESPfvepQgxutjyr 2017 12:00am[facility] 2023 1:48pmOmeprazole 20 mg Capsule,Delayed Release(Dr/Ec)Ghjdlpzvalxz29GSIOPhmlyXfweworf 2017 12:00am[facility] 2023 1:57pmMagnesium 250 mg IutgfuElikvmrgctvv031ELSZMnxfsHxxpgheu 2017 12:00am October 21, 2018 7:46amBiotin 1 mg NuapozTiolnvxchofv6OUGLWmacnPmrklqbs 2017 12:00am[facility] 2023 1:48pmAtenolol 100 mg nlqdkcRafsuugjnrfy998HPCSRjmcc July 26, 2023 1:47pmJune 2023 3:46pmBiotin 1 mg eowcbkOkjrdr0PMKGAewef July 26, 2023 1:47pmComplies with drug therapyHydrochlorothiazide 25 mg tablet Quvwszqimmmw32ZFXHUiqnaMfj 2022 11:00pmOctober 2023 9:41amCalcium 500 mg JcdjwqGojwrxzlmkpw829ZAWSPreoeOfa 2022 11:00pmMar 2023 1:56pmCalcium Carbonate (Tums) 300 mg (750 mg) Tablet,SobylkptXjtzryivkkxe662RM POTwice daily as needed for HeartburnMay 2022 11:00pm[facility] 20[facility] 1:56pmTramadol 50 mg rysxgwGvsuwohcrrwf41QLGQZefhm as needed for AnxietyMay 2022 11:00pm[facility] 2023 1:57pmCholecalciferol (Vitamin D3) (Vitamin D3) 25 mcg (1,000 unit) PqvkcfYwfbwafcfejc69QDRRHZtkgwLri 2022 11:00pm July 26, 2023 1:56pmInulin (Fiber Gummies) 2 gram Tablet,ChewableDiscontinued1 GMPODailyMay 2022 11:00pm[facility] 2023 1:56pmMeloxicam 15 mg Tablet Govgdchznyxf99QNRBAfwhhAeimbta 2016 11:00pm[facility] 2023 1:57pmValsartan- Hydrochlorothiazide 80-12.5 mg GhiemeMoeoijwgrmwr7QPBBGNuiovQhtikdz 2016 11:00pmDeceer 2016 8:52amAtenolol 50 mg KjrdxtLogwrsosrcnn801JSKZEjmol February 22, 2017 11:00pmNovember 2017 7:29amOmega 5-Cqg-Plu-Fish Oil (Fish Oil) 1,000 mg (120 mg-180 mg) VuwrmpcRzfyllwourio0OPQFFWkgfxNxfvvsn 2016 11:00pmApril 2017 6:39amCalcium Carb-Magnesium Carb,Ox (Eliud-Mag) 200 mg calcium- 100 mg Tablet,ChwtatimUqsbjsxzuitx0HGEOARyajdQalyxup 2016 11:00pmApril 2017 6:39amBiotin 1,000 mcg Tablet,XyhytltbLkcoulwdtlzi9JBCEB DailyOctober 2016 11:00pmApril 2017 6:39amHydrocodone-Acetaminophen 5- 325 mg fqnnbiZmlgjhklvvbe9ZWXPUVhuwi daily as needed for afoi42432Pxeuoncv 2023January 2024 5:45pmSpondylosis of lumbar spine Spondylosis without myelopathy or radiculopathy, lumbar regionstart 04/30 Semaglutide (Ozempic) 0.25 mg or 0.5 mg (2 mg/3 mL) pen injectorDiscontinued0.25 MGSUBCUTevery lhul6577Fqtqoncu 2023 12:00amApril 2024 10:04amImpaired fasting glucose Impaired fasting glucosefor 4 weeksDoxycycline Hyclate 100 mg capsule Jsqmflqzobyn512WIVYGnefd ardnw9807Iphnkbns 2023 12:00amMarch 2024 7:40amPrednisone 20 mg wqnaetAjyyrwsdlxct07FPDZ.GSXFGOS299Pvaxzjbk 2023 12:00amMarch 2024 7:40amTake 2 tabs po daily x 5 daysAtenolol 100 mg cewmavZurseqkmozmo062WCWMIgsfzGsaqp 2024 10:01amApril 2024 6:47am Hydrochlorothiazide 25 mg hucxnaKduytstqsrrk16IGMKYpmqFpgmp 2024 10:02am March 06, 2025 12:36pmMeloxicam 15 mg wgllxfEygsrc89NKLLCmgcjIivbh 2024 10:03amComplies with drug therapyAlbuterol Sulfate 90 mcg/actuation HFA aerosol ivksidyItkijtarpetg4NYBHWGNHPISNSMNSOX 4-6 HOURS as needed for shortness of breath or wheezing6.770April 2024 11:00pmMay 2024 1:43pm Dextromethorphan-Guaifenesin (Coricidin Hbp Chest Zeus-Cough) 10-200 mg capsule Refocj0RJU-JNHKAEtymc 8 hours as needed for qyuje6646Npd 2024 11:00pm Complies with drug therapyPrednisone 20 mg jzheliYfgxrwevunht85YHLFStsln9565Shu 15th, 2025 11:00pmAugust 2024 1:19pmAlbuterol Sulfate 90 mcg/actuation HFA aerosol cingazvEgibfa3WQEGEYPYVYOJYKPJXN 4-6 HOURS as needed for shortness of breath or wheezing6.770May 2024 1:41pmComplies with drug therapy Benzonatate 200 mg pktwptjWbgniruksrai984CTEOCaywb times bboee89924Fato2024 11:00pmJun2024 10:06amLevofloxacin 500 mg anuogkVbeywpeergqg723AYGU Zqpyh689ClvrOctober 28, 2024 11:00pmJune 2024 10:06amInhalational Spacing Device (Aerochamber Mini) spacerDiscontinued0.ROUTE.YKDWLPFOM06Bbyk 10th, 2025 11:00pmJune 2024 10:06amCough Cough, unspecifiedAs directedBenzonatate 200 mg tomipbwCsefcf839ILOBHrnag times ycqwe56185Crje2024 11:00pmComplies with drug therapyLevofloxacin 500 mg msleafDnrgigmilkvw852TPINEtlzw255Zjyk 10th, 2025 11:00pmJuly 2024 8:14am Inhalational Spacing Device (Aerochamber Mini) spacerActive0.ROUTE.WQSVAHRHO23 October 28, 2024 11:00pmCough Cough, unspecifiedAs directedTriamcinolone Acetonide 0.5 % qchfkiioTctatv4UQUYTI TOPICALTwice lglne34178Ckdcnt 2024 1:53pmComplies with drug therapy Prednisone 20 mg tvmvcwFufxahnovuwn60SPJB.DKABTII3458Cxbpdc 2024 1:54pm May 07, 2025 10:36am20 mg orally; 1 PO tid w/ food x 2 days then bid w/ food x 3 days then qd w/ food x 4 daysHydrocodone-Acetaminophen 5-325 mg tablet Umhbqiwhvuba0QLEXNTpafm daily as needed for ksvu77527Bmdkbk 2024September 2024 7:53amSpondylosis of lumbar spine Spondylosis without myelopathy or radiculopathy, lumbar regionDimenhydrinate 50 mg zijvryGlojyiayhlkv30CKTAKnvwb 6 hours as neededMarch 2023 12:00amApril 2024 10:02amHydrocodone-Acetaminophen 5-325 mg dnxedqPouzmhkruslt3QEEPY Twice daily as jdpshb3Lrfvc 2023 12:00amMarch 11th, 2024 2:53pmOmeprazole 40 mg capsule,delayed release(DR/EC)Nqmezrxsmeps16LVKERcxomRdfzf 2023 12:00amApril 2024 10:04amPotassium Chloride 10 mEq capsule, extended hxhvvilWxfwivktaxwg44EUJUCHotkvRoucp 2023 12:00amDecember 2023 11:05amZoledronic Cahb-Tgigpqib-Gkjjn (Reclast) 5 mg/100 mL piggybackActiveEACH IVAs DirectedBarberton [facility] Hospital 2023 12:00amComplies with drug therapyTriamcinolone Acetonide 0.5 % xhfjzoetIhephlendqlf2OZOMLGOSSTOIAAtgcy daily as neededBarberton Citizens Hospital 2023 12:00amAugust 2024 1:55pmHydrocodone-Acetaminophen 5-325 mg wgjqxwGqzvonkzgbed2YHCMQColuf daily as needed for wnmy50004Cpaqr 2023May 2023 8:46amSpondylosis of lumbar spine Spondylosis without myelopathy or radiculopathy, lumbar regionOmeprazole 40 mg capsule,delayed release(DR/EC)Rhtsyk67VRXSSmsur as neededApril 2024 10:03am Complies with drug therapyMethotrexate Sodium 2.5 mg tabletDiscontinued2.5MGPO every weekFormerly [facility] 2023 11:00pmMarch 2024 7:40amFolic Acid 1 mg tablet Gnsplbmwilig4LVULGmdgcGfmc 2023 11:00pmMarch 2024 7:40amHydrocodone- Acetaminophen 5-325 mg fsnyosJcjrtqfsktki3PJZBAJspkj daily as needed for pain60 300May 2023July 2023 5:35amSpondylosis of lumbar spine Spondylosis without myelopathy or radiculopathy, lumbar regionstart 10/11 Hydrocodone-Acetaminophen 5-325 mg hkodkdJaxgrgxsiuyh3GBGRCRvaty daily as needed for afpf98011Spgiimgsg 2023October 2023 4:31pmSpondylosis of lumbar spine Spondylosis without myelopathy or radiculopathy, lumbar regionstart 01/28 Meloxicam 15 mg mantplEpwsaihnuvfc02HBRXBxpsl73072Nfwvksxqd 2023 11:00pm June 01, 2024 7:27pmFluconazole 150 mg rgkameFavetw675DLGOTcdlz672Udmnne 2024 11:00pmComplies with drug therapyCiprofloxacin Hcl 250 mg tablet Otnwhzpkkiov031TNHVSndpx 12 lqgen2713Ebmrcl 2024 11:00pmAugust 2024 11:36amPrednisone 20 mg nqybnaTfdhbksmtdxw64XMEKCyxbu5670Uqkilh 2024 1:17pm December 22, 2024 5:28pm1 PO tid w/ food x 2 days then bid w/ food x 3 days then qd w/ food x 4 days Immunizations Immunization Event Date Not Given Reason Dose Number Glass Products Inspector Lot Number Reason(s) Given Vaccine Information Statement (VIS) Detail Administration Location COVID-19 mRNA-1273 (Moderna) July 24, 2020 COVID-19 mRNA-1273 (Moderna)August 21Tap, unspecifiedNovember 2021 Fluzone TIV High-Dose 65YR+January 29, [id number] Fluzone TIV High-Dose 65YR+February 12, 2025U8800CAP[facility] Fluzone QIV High-Dose 65YR+February 09, 2020Influenza vaccine, quadrivalent, adjuvantedSeptember 2020Influenza, injectable, MDCK, pfNovember 2014 influenza, unspecified formulationOctober 2021influenza, unspecified formulationOctober neumococcal Conjugate Vaccine, 13 valentMarch 2019Quadrivalent InfluenzaSeptember 2016Quadrivalent Influenza January 28, 2018Quadrivalent InfluenzaOctober 2017Quadrivalent InfluenzaOctober 2018Tetanus, Diphtheria, Pertussis (Tdap)January 01, 2013 Tetanus, Diphtheria, Pertussis (Tdap)April 07, 2022 Procedures Procedure Date Performed Status Urine Culture February 13, 2025 completed Relevant Diagnostic Tests and/or Laboratory Data Laboratory Results Test Collection Date/Time Result Date/Time Result Interpretation Reference Range Result Comment Performing Site Urine Bilirubin February 13, 2025 6:46am February 13, 2025 6:46am NEGATIVE NEGATIVEUrine Occult BloodSeptember 2024 6:46amSeptember 2024 6:46am NEGATIVENEGATIVEUrine AppearanceSeptember 2024 6:46amSeptember 2024 6:46amCLEARCLEARUrine ColorSeptember 2024 6:46amSeptember 2024 6:46amLT. YELLOWYELLOWUrine Glucose (UA)February 13, 2025 6:46amSeptember 2024 6:46amNEGATIVE mg/dLNEGATIVEUrine KetonesSept2024 6:46am February 13, 2025 6:46amNEGATIVE mg/dLNEGATIVEUrine Leukocyte Esterase February 13, 2025 6:46amSeptember 2024 6:46amSMALLAbnormal (applies to non-numeric results)NEGATIVEUrine NitriteSeptember 2024 6:46amSeptember 2024 6:46amNEGATIVENEGATIVEUrine pHSeptember 2024 6:46amSeptember 2024 6:46am6.05.0-9.0Urine ProteinSept2024 6:46amSeptember 2024 6:46amNEGATIVE mg/dLNEG/TRACEUrine Specific GravitySeptember 2024 6:46amSeptember 2024 6:46am1.0101.005-1.025Urine Urobilinogen February 13, 2025 6:46amSeptember 2024 6:46am0.2 EU/dL0.2-1.0 Microbiology Results Procedure Source Result Collection Date/Time Result Date/Time Result Comment Performing Site Urine Culture Urine 2 Days February 13, 2025 7 :45am February 15, 2025 10:03am [facility] [id number] [address] [place] [id number] Vital Signs Vital Reading Result Reference Range Collection Date/Time Height 63.5 [in_i] February 12, 2025 8:08mjGjwfdk89.79 kgSept2024 8:59amHeart Rate61 /ukd86-749Gndivodpp 25th, 2025 8:59amRespiratory rate12 /pbq40-54Byyqnugio 2024 8:59amBP Ujrbqtzs753 mm[Hg]100-140September 2024 8:59amBP Oxguneztm70 mm[Hg]60-100September 2024 8:59amBMI (Body Mass Index)35.2 kg/p5Iwjxvrcfi 2024 8:53tvNlfdht31.5 [in_i]May 07, 2025 10:36am Objbea56.47 kgDecember 2024 10:36amHeart Rate66 /eij64-235Mzfkqsgn 2024 10:36amRespiratory rate12 /epm46-23Yrmfsspy 2024 10:36amBP Systolic 146 mm[Hg]100-140December 2024 10:36amBP Xwzdsktjj88 mm[Hg]60-100December 2024 10:36amBMI (Body Mass Index)34.4 kg/u4Ymgosmls 2024 10:36am Advance Directives Advance Directive Response Recorded Date/ Time Advance Directives No April 10:40am Insurance Providers Guarantor Lizzy Welsh Address [address] [place], [place] [id number] Info.Home Phone: Payer Group Member ID Coverage Type Subscriber Relationship to Subscriber Effective Date Expiration Date MMO [employer] Access [address] [address] [place] [id number] Work Phone: Id: [id number] S [place] Id: [id number] [address] [place], [place] [address] Home Phone: Medicare [id number] A [place] Id: [id number] [address] [place], [place] [address] Home Phone: Email: /18SelfMedicare-OP No Part B [id number] A [place] Id: [id number] [address] [place], [place] [address] Home Phone: Email: DECLINE07/04/elf[employer]rial Self Ins Misc [employer] [address] [facility] [address] Id: [id number] A [place] Id: [id number] [address] [facility] [address] Home Phone: Email: DECLINE07/04/elfHealthscope [id number] A [place] Id: [id number] [address] [facility] [address] Home Phone: Email: DECLINE07/04/elfMutual [employer] [place] [employer] [id number] A [place] Id: [id number] [address] [place], [place] [address] Home Phone: Email: [email or web address] Encounters Encounter Location(s) Arrival/Admit Date Discharge/Departure Date Discharge/Departure Disposition Provider(s) Departed Physician/ Provider Office Visit -[facility] February 12, 2025 9:50am February 12, 2025 10:26am Discharged to home care or self care (routine discharge) Mckinley Alfaro DO Departed Referred -[facility] February 13, 2025 7:45am February 13, 2025 7:46am Discharged to home care or self care (routine discharge) Mckinley Alfaro DO Non-patient / Non-visit -[facility] February 13, 2025 7:46am MALLORY Desaieparted Physician/Provider Office [facility] 11:15amDischarged to home care or self care (routine discharge)Mckinley Alfaro DO Recent Diagnosis Onset Date Admit Date Dysuria Unknown February 12, 2025 9:50am Hypertension Unknown February 12, 2025 9:50am IFG (impaired fasting glucose) Unknown S 2024 9:50am Obesity Unknown February 12, 2025 9:50am Aphthous stomatitis Unknown February 122024 9:50am Age-related osteoporosis wit hout current pathological fracture Unknown May 07, 2025 10:29am GERD (gastroesophageal reflux disease) Unknown May 07, 2025 10:29am Hypertension Unknown May 07 10:29am IFG (impaired fasting glucose) Unknown D ec2024 10:29am Lumbar spondylosis Unknown April 10:29am Obesity Unknown May 07 10:29am Opiate analgesic use agreement exists Unknown May 07, 2025 10:29am Psoriatic arthritis Unknown April 10:29am Screening mammogram for breast cancer Unknown May 07, 2025 10:29am Assessments Diagnosis Onset Date Resolution Status Admit Date Dysuria acuteSept2024 9:50amHypertensionacuteSept2024 9:50amIFG (impaired fasting glucose)acuteSept2024 9:50amObesityacuteSept2024 9:50amAphthous stomatitisnoneactiveSept2024 9:50amAge- related osteoporosis without current pathological fractureacuteDece2024 10:29amGERD (gastroesophageal reflux disease)acuteMay 07, 2025 10:29amHypertensionacuteDecemb2024 10:29amIFG (impaired fasting glucose)acuteDece2024 10:29amLumbar spondylosisacutece2024 10:29amObesityacuteDecember 2024 10:29amOpiate analgesic use agreement existsacuteDe2024 10:29amPsoriatic arthritisacutece2024 10:29amScreening mammogram for breast canceracuteMay 07, 2025 10:29am Plan of Treatment Author [facility] Alfaro [facility] 11:11amI have instructed this patient to consume a healthy, low-fat, low-salt diet. I have also encouraged them to continue exercise with weight loss to achieve/maintain a BMI < 30. I have instructed this patient on the correct procedure for obtaining home BP measurements:? - rest for 5 minutes w/o talking. - positioned w/ feet on floor and arms supported. - average best 2/3 readings w/ goal < 135/85. Continue Atenolol and HCTZ without interruption I have instructed this patient to follow a comprehensive diabetic treatment plan. I have also instructed them to check their feet daily for calluses and nonhealing ulcers. I have instructed them to have a yearly dilated eye examination. I have reviewed their treatment goals: SBP less than 130, LDL less than 100, FBS less than 140, A1C less than 7%. I have instructed them to maintain a home BS log and bring the results to each of their office visits for review. I have explained the importance of routine monitoring of their A1C, Microalbumin and Lipids. I have explained the benefits of well controlled diabetes in preventing micro and macrovascular complications. Monitor A1C every 6mo I have instructed this patient on a low-fat, high-fiber diet.?? I have also instructed them to reduce calories, portions sizes, sweet drinks and snacks.?? I have also recommended they exercise for 30 minutes, 3-5 times weekly. They are aware of the comorbid conditions associated with excessive weight: Diabetes, HTN, Hyperlipidemia, CAD and arthritis. Initiated Adipex, GLP1 cost prohibitive Stopped Adipex after a month due to personal issues, planning to restart in Jun She denies any CP, palpitations, tremors or insomnia. Weight: December Instructed to continue calcium and vitamin D supplements. Instructed on weight bearing exercises. Monitor w/ DEXA qoy. Continue Reclast yearly (started 04/2024) I have instructed this patient to avoid lying flat after eating.?? I have also recommended to avoid eating 2 hours prior to bedtime.?? They were also informed that smaller, frequent meals may be better tolerated. I have discussed additional treatment options for persistent symptoms, which includes: weight loss, H2 blockers and PPI. I have also instructed them to notify the office with any pain or difficulty swallowing. Continue Omeprazole without interruption Has failed improvement w/ MTX - d/c'd by Rheum w/ plans to start Arava f/u Rheumatology cancelled, tolerating symptoms at this time I have instructed this patient to avoid bending, twisting or lifting. I have also instructed on use of intermittent heat and ice as needed. They may schedule a massage or gentle manipulation. I instructed them on the safe use of Tylenol, Lidocaine and stretching exercises. I informed them of alternative modes of treatment for severe pain, which may include referral to physical therapy or pain management. MRI: no significant canal or foraminal stenosis - 07/2023 f/u Pain Clinic This patient requires opiate use on a daily basis to control pain. This patient does not exhibit drug-seeking or aberrant behavior. This patient is able to continue with ADL, with an adequate quality of life, that they would not be able to achieve without the prescription pain medication. There has been no surgical treatment recommended for this condition. Use of non- opiate treatment should be continued, such as nonstrenuous and aquatic exercises. This patient has a pain management contract and they have been counseled on safe storage of the medication. They have been counseled on the risks of concomitant use with alcohol or sedating meds. PDMP is being followed and this patient's OARRS report is being monitored every 90 days. I have instructed this patient on monthly SBE and recommended yearly mammograms. Author Mckinley Alfaro [facility] CenterAuthoredSeptember 2024 10:20amI have instructed this patient to consume a healthy, low-fat, low-salt diet. I have also encouraged them to continue exercise with weight loss to achieve/maintain a BMI < 30. I have instructed this patient on the correct procedure for obtaining home BP measurements:? - rest for 5 minutes w/o talking. - positioned w/ feet on floor and arms supported. - average best 2/3 readings w/ goal < 135/85. Continue Atenolol and HCTZ without interruption I have instructed this patient to follow a comprehensive diabetic treatment plan. I have also instructed them to check their feet daily for calluses and nonhealing ulcers. I have instructed them to have a yearly dilated eye examination. I have reviewed their treatment goals: SBP less than 130, LDL less than 100, FBS less than 140, A1C less than 7%. I have instructed them to maintain a home BS log and bring the results to each of their office visits for review. I have explained the importance of routine monitoring of their A1C, Microalbumin and Lipids. I have explained the benefits of well controlled diabetes in preventing micro and macrovascular complications. Monitor A1C every 6mo I have instructed this patient on a low-fat, high-fiber diet.?? I have also instructed them to reduce calories, portions sizes, sweet drinks and snacks.?? I have also recommended they exercise for 30 minutes, 3-5 times weekly. They are aware of the comorbid conditions associated with excessive weight: Diabetes, HTN, Hyperlipidemia, CAD and arthritis. Initiated Adipex, GLP1 cost prohibitive She denies any CP, palpitations, tremors or insomnia. Weight: December Gargle as needed. Monitor for now, likely a viral infection and not a drug allergy. Instructed to push fluids This is the 3rd infection in past 3 months. Order printed for UA w/ C/S. Future Tests Future scheduled test information is unavailable Pending Tests Test Name Ordered Date Scheduled Date MM screening mammo BI w/CAD May 07, 2025 10:51am Future Visits Future appointment information is unavailable Future Procedures Procedure Name Ordered Date Scheduled Date Basic Metabolic Panel May 07, 2025 10:53a m Vitamin D 25 Hydroxy TotalDecember 2024 10:53amUrine CultureSeptember 2024 9:03amUrinalysisSeptember 2024 9:03am Future Medications Future medication information is unavailable Patient Instructions Patient instructions are unavailable
--- OUTSIDE RECORDS SUMMARY | 2025-05-11 10:39 | XMS_ITS | Clinical Summary ---
Author Organization [facility] Address [address], [address] [place] [address] Care Team Providers Care Production Administrative Assistant Name Role Phone Mckinley Alfaro DO Primary Care Provider [phone] Allergies Active AllergyReactionsCriticalityNoted DateCommentsPenicillinsSwelling 12/25/2015 Medications MedicationSigDispense QuantityRefillsLast FilledStart DateEnd DateStatus ATENOLOL PO Take by mouthActive meloxicam (MOBIC) 15 MG tablet Take 15 mg by mouth dailyActive [place] Pool-3 Fatty Acids (FISH OIL) 1000 MG CAPS Take 1,000 mg by mouth 3 times dailyActive ondansetron (ZOFRAN ODT) 4 MG disintegrating tablet Take 1 tablet by mouth every 8 hours as needed for Nausea or Vomiting 20 tablet 10/04/2018Active ibuprofen (IBU) 600 MG tablet Take 1 tablet by mouth every 6 hours as needed for Pain 40 tablet 10/04/2018Active Active Problems No known active problems Social History Tobacco UseTypesPacks/DayYears UsedDateSmoking Tobacco: FormerSmokeless Tobacco: NeverAlcohol UseStandard Drinks/WeekCommentsNo0 (1 standard drink = 0.6 oz pure alcohol)CommentsNoSex and Gender InformationValueDate RecordedSex Assigned at BirthNot on fileLegal JhxIuuzeq66/10/2013 2:48 PM ESTGender Identity Not on fileSexual OrientationNot on file Last Filed Vital Signs Vital SignReadingTime TakenCommentsBlood Dsizcxsj652/7005 4:52 AM EDT Pfaiu5387 4:52 AM MIECqjtydfyidl14.7 ??C (98.1 ??F)10/04/2018 4:53 AM EDTRespiratory Vmag574310/04/2018 2:51 AM EDTOxygen Xnkfjdqsiq66%10/04/2018 2:51 AM EDTInhaled Oxygen Concentration--Qlajfx59.8 kg (198 lb)12/27/2015 4:00 PM EDT Dpnzdb523.3 cm (5' 3.5 )12/27/2015 4:00 PM EDTBody Mass Index34.52012/27/2015 4:00 PM EDT Plan of Treatment Not on file Insurance [place] [id number] Care Teams Team MemberRelationshipSpecialtyStart DateEnd Date Mckinley Alfaro DO PCP - GeneralInternal Medicine10/04/18
--- OUTSIDE RECORDS SUMMARY | 2025-05-11 10:39 | XMS_ITS | Clinical Summary ---
Author Organization [facility] Address [address] [place] [address] Phone Care Team Providers Care Vocational Guidance Counselor Name Role Phone Mckinley Alfaro Primary Care Provider [phone] Social History Tobacco UseTypesPacks/DayYears UsedDateSmoking Tobacco: Never Assessed CommentsUnknownSex and Gender InformationValueDate RecordedSex Assigned at Not on fileLegal BowGiivfb27/17/2023 9:50 AM EDTGender IdentityNot on fileSexual OrientationNot on file Last Filed Vital Signs Vital SignReadingTime TakenCommentsBlood Pressure--Pulse--Temperature-- Respiratory Rate--Oxygen Saturation--Inhaled Oxygen Concentration--Ehnmbb94 kg (198 lb 6.6 oz)12/12/2022 7:50 AM SFVNepdch398.1 cm (5' 0.28 )12/12/2022 7:50 AM EDTBody Mass Index38.407 7:50 AM EDT Plan of Treatment Health MaintenanceDue DateLast DoneCommentsCT Mhlntwlonyqy1952Colonoscopy 1950olorectal Cancer Jagcvnpnw1950FIT-DNA (Cologuard)1950FIT 1950Lipid Panel1950 4774Mbxmmdmeuybgj1952Yearly Adult Physical 1950MMR Vaccines (1 of 1 - Standard series)1951Hepatitis C Screening 1970DTaP/Tdap/Td Vaccines (1 - Tdap)04/27/19744316Whnbisluy12/08/1992 Pneumococcal Vaccine (1 of 1 - PCV)2002Zoster Vaccines (1 of 2)2002 Bone Density Scan2017COVID-19 Vaccine ( - 2024-26 season)2025 Influenza Vaccine (#1)2025RSV High Risk: (Elderly (60+) or Population) (1 - 1-dose 75+ series)2027HIB VaccinesAged OutNo longer eligible based on patient's age to complete this topicHPV VaccinesAged OutNo longer eligible based on patient's age to complete this topicHepatitis A VaccinesAged OutNo longer eligible based on patient's age to complete this topic Hepatitis B VaccinesAged OutNo longer eligible based on patient's age to complete this topicIPV VaccinesAged OutNo longer eligible based on patient's age to complete this topicMeningococcal VaccineAged OutNo longer eligible based on patient's age to complete this topicRotavirus VaccinesAged OutNo longer eligible based on patient's age to complete this topic Care Teams Team MemberRelationshipSpecialtyStart DateEnd Date Mckinley Alfaro DO [facility]12/08/22
--- OUTSIDE RECORDS SUMMARY | 2025-05-11 10:39 | XMS_ITS | Clinical Summary ---
Author Organization [facility] Address [address] [place] [address] Care Team Providers Care Associate Professor Of Psychology Name Role Phone Mckinley Alfaro DO Primary Care Provider [phone] Allergies Active AllergyReactionsCriticalityNoted DateCommentsAce Cvnrdzsxxs37/26/2023 Other Reaction(s): dry cough Penicillin V011/13/2022 Other Reaction(s): Unknown Wound Dressing MwzqdbmsObyhAoo04/21/2023Wound FlhpaktqjGflxghf92/26/2023 Medications MedicationSigDispense QuantityRefillsLast FilledStart DateEnd DateStatus atenolol (Tenormin) 100 MG tablet 1 (one) time each day at the same time.Active hydroCHLOROthiazide (HYDRODiuril) 25 MG tablet Take 25 mg by mouth in the morning.09/29/2022ctive omeprazole (PriLOSEC) [address] capsule Take 20 mg by mouth if needed. Do not crush or chew.Active cholecalciferol (D3-5) 5,000 Units tablet Take 5,000 Units by mouth in the morning.Active calcium carbonate 1500 (600 Ca) MG tablet Take 600 mg by mouth in the morning. Take with meals.Active HYDROcodone-acetaminophen (Norcatur) 5-325 MG tablet TAKE 1 TABLET BY MOUTH EVERY 6 HOURS NEEDED FOR PAIN FOR 7 DAYS03/08/2023 Active biotin 1 MG capsule Take by mouth Daily.Active fluconazole (Diflucan) 150 MG tablet Indications:Yeast infectionPt to take one tablet by mouth and on day 4 take another tablet 2 tablet ctive meloxicam (Mobic) 15 MG tablet Take 15 mg by mouth in the morning.05/16/2023ctive predniSONE (Deltasone) 20 MG tablet 06/13/2023ctive LORazepam (Ativan) 0.5 MG tablet Indications:Spondylosis of lumbar region without myelopathy or radiculopathyTake 1 tablet (0.5 mg) by mouth See administration instructions for 1 dose 1 by mouth 1 hour prior to MRI, may repeat X 1 dose 1 tablet 07/10/2023ctive methylPREDNISolone (Medrol Dospak) 4 MG tablets Indications:Chronic right shoulder painFollow schedule on package instructions 21 tablet 08/23/2023ctive Active Problems ProblemNoted DateDiagnosed DateS/P right rotator cuff fjoyyi9406/15/2023cute pain of right arlptmol81/20/2023Shoulder stiffness, right04/09/2023cute right-sided low back pain with right-sided hbneirlp12/26/2023ifficulty in walking, not elsewhere pcctxuyvrt33/26/2023iriformis syndrome of right side11/13/2022Right sided gvsvgxke82/26/2023SI joint fvhtkcsbi52/26/2023 Immunizations ImmunizationAdministration DatesNext DueInfluenza, High-dose Seasonal, Quadrivalent, Preservative Free02/09/2020Influenza, Injectable, MDCK, preservative free03/21/2015Influenza, Seasonal, Quadrivalent, Adjuvanted 02/13/2021Influenza, injectable, quadrivalent, preservative free02/19/2019, 03/06/2018,01/28/2018,01/30/2017,07/04/2016Tdap106/07/2021,01/01/2013 Family History Medical HistoryRelationNameCommentsDiabetesFatherGlaucomaFatherHeart disease FatherHypertensionFatherHeart diseaseMotherHypertensionMotherRelationNameStatus CommentsFatherDeceasedMotherAlive Social History Tobacco UseTypesPacks/DayYears UsedDateSmoking Tobacco: NeverSmokeless Tobacco: Never Tobacco Cessation:Counseling Given: Not Answered Alcohol UseStandard Drinks/WeekCommentsYes0 (1 standard drink = 0.6 oz pure alcohol)occasional, caffeine:sodaCommentsUnknownSex and Gender InformationValueDate RecordedSex Assigned at BirthNot on fileLegal SexFemale 08/02/2022 6:42 PM EDTGender IdentityNot on fileSexual OrientationNot on file Last Filed Vital Signs Vital SignReadingTime TakenCommentsBlood Dibaheon756/8201/ 12:00 PM EST Pulse--Temperature--Respiratory Rate--Oxygen Saturation--Inhaled Oxygen Concentration--Oxaien78.6 kg (202 lb)01/03/2023 8:34 AM EMVCsloqo224 cm (5' 3 ) 01/03/2023 8:34 AM EDTBody Mass Index35.78001/03/2023 8:34 AM EDT Plan of Treatment Not on file Insurance * Guarantor: Lizzy Welsh AAccount TypeRelation to PatientDate of BirthPhone Billing AddressPersonal/EqnzheLtde[address] [phone] [place], [place] [address] Care Teams Team MemberRelationshipSpecialtyStart DateEnd Date Mckinley Alfaro DO PCP - GeneralInternal Medicine11/13/22
[2025-05-11 11:08] LABS: Anion Gap 11.6; Blood Urea Nitrogen 30.0 mg/dL (7.0-18.0); Calcium 8.6 mg/dL (8.5-10.1); Carbon Dioxide 30.6 mmol/L (21.0-32.0); Chloride 105 mmol/L (98-107); Estimated GFR (African America >60 (>=60 mL/min/1.73m^2); Estimated GFR (Non-African Ame 58 (>=60 mL/min/1.73m^2); Glucose 108 mg/dL (74-106); Potassium 3.2 mmol/L (3.5-5.1); Sodium 144 mmol/L (136-145)
== END 2025-05-11 10:32 | disposition home or self-care (01) ==
LOC: LAB 10:36
PROVIDERS: PCP Internal Medicine; Visit Provider Internal Medicine
DX: E55.9 Vitamin D deficiency, unspecified (principal); I10 Essential (primary) hypertension
CPT/HCPCS: 36415; 80048; 82306

== ENCOUNTER 2025-05-20 08:51 | Outpatient (RCR) | payer MEDICARE, OTHER, SELFPAY ==
[2025-05-20 08:56] VITALS: BP 164/78; PULSE 63; TEMP 36.3; O2SAT 95
[2025-05-20] MEDS: ZOLEDRONIC ACID/MANNITOL-WATER 5 MG/100 ML BOTTLE 400 MG IV (09:05)
--- NOTE | 2025-05-20 10:33 | MM_ITS ---
Patient Name: FAHEEM MUÑOZ MR#: [id number] : 1950 Exam Date: 05/20/2025 Ordering Doctor: DR JESSICA MONGE D.O. RADIOLOGY REPORT PROCEDURE: MM TOMOSYNTHESIS SCREENING BI COMPARISON: MM TOMOSYNTHESIS DIAGNOSTIC BI, 05/02/2024. MM TOMOSYNTHESIS SCREENING BI, 08/09/2023. MG MAMM SCREEN 3D MANDY CAD, 06/13/2022. MG MAMM MANDY SCRN W CAD DIG, 10/17/2012. INDICATIONS: Screening Calculator Name NCI Breast Cancer Risk Assessment Tool 5 Year Breast Cancer Risk 2.10% Lifetime Breast Cancer Risk 5.00% Personal Breast Cancer No Personal Ovarian Cancer No Treatments None Family Cancers None LOCATION: [facility] BREAST COMPOSITION: There are scattered areas of fibroglandular density. FINDINGS: DIAGNOSTIC CATEGORY 1--NEGATIVE. RIGHT BREAST: No significant suspicious finding. LEFT BREAST: No significant suspicious finding. RECOMMENDATIONS: ROUTINE MAMMOGRAM AND CLINICAL EVALUATION IN 12 MONTHS. Dictated by: Obed Rick MD on 05/20/2025 at 13:23 Approved by: Obed Rick MD on 05/20/2025 at 13:25
== END 2025-05-20 23:59 | disposition home or self-care (01) ==
LOC: INF 08:51
PROVIDERS: PCP Internal Medicine; Visit Provider Internal Medicine
DX: M81.0 Age-related osteoporosis without current pathological fracture (principal); Z12.31 Encounter for screening mammogram for malignant neoplasm of breast
CPT/HCPCS: 77063; 77067; 96365; J3489